=== PATIENT | female | born 1965 | race Caucasian/White ===

== ENCOUNTER 2018-04-15 15:24 | Emergency (ER) | payer OTHER, MEDICAID, SELFPAY ==
[2018-04-15 15:31] VITALS: BP 193/108; PULSE 98; RESP 20; TEMP 36; O2SAT 100; BMI 33.2
--- NOTE | 2018-04-15 15:42 | ED.ABDPAIN ---
HPI - Abdominal Pain <Tomasa Xavier PA-C - Last Filed: 04/15/18 20:46> General Chief Complaint: Abdominal Pain Stated Complaint: states serious abdominal pain Time Seen by Provider: 04/15/18 15:41 Source: patient Mode of arrival: ambulatory Limitations: no limitations History of Present Illness HPI narrative: This 53-year-old female comes in due to acute onset of abdominal pain and vomiting this morning. She states that pain is in the upper midline mostly, nonradiating. There do not seem to be any alleviating or exacerbating features such as position. She states that she vomited liquid to many times to count today and has been dry heaving since. She states that she had a normal bowel movement this morning, denies any urinary symptoms. She has not vomited blood. She states that she has felt warm today but no temperature taken. She states she had kidney stones once but this pain is not similar. She denies any new or changed medications. She did eat out at a fast food restaurant last night but did not notice anything strange with the food and other family members accompanying her there did not get ill. She denies any chest pain, dyspnea, or other new complaints on systems review. Related Data Home Medications Medication Instructions Recorded Confirmed [EXCEDRIN MIGRAINE] PRN #0 12/13/09 Allergies Allergy/AdvReac Type Severity Reaction Status Date / Time Penicillins Allergy Verified 04/15/18 15:34 Ranitidine Allergy Mild HIVES Uncoded 09/20/17 11:54 Review of Systems <Tomasa Xavier PA-C - Last Filed: 04/15/18 20:46> Review of Systems All systems reviewed & are unremarkable except as noted in HPI and below Exam <Tomasa Xavier PA-C - Last Filed: 04/15/18 20:46> Narrative Exam Narrative: GENERAL APPEARANCE: Patient lying on her side, appears uncomfortable, but in NAD HEENT: PERRL, EOMI, no scleral icterus NECK: Supple LUNGS: Clear to auscultation bilaterally. HEART: Rate and rhythm regular, normal S1 and S2, no S3 or S4. ABDOMEN: Soft, obese, nondistended, bowel sounds present x 4 quadrants, no masses palpable, no hepatosplenomegaly. Generalized tenderness over the epigastrium and throughout the upper quadrant, no lower quadrant tenderness, negative Hurley's sign, no CVAT EXTREMITIES: No edema, no calf tenderness DERMATOLOGIC: No jaundice or exanthem NEUROLOGIC: Alert and oriented with normal speech and coordination Initial Vital Signs Initial Vital Signs: Vital Signs Temperature 96.8 F L 04/15/18 15:31 Pulse Rate 98 H 04/15/18 15:31 Respiratory Rate 20 04/15/18 15:31 Blood Pressure 193/108 H 04/15/18 15:31 Pulse Oximetry 100 04/15/18 15:31 <Jeana Kumar DO - Last Filed: 04/20/18 18:28> Initial Vital Signs Initial Vital Signs: Vital Signs Temperature 96.8 F L 04/15/18 15:31 Pulse Rate 98 H 04/15/18 15:31 Respiratory Rate 20 04/15/18 15:31 Blood Pressure 193/108 H 04/15/18 15:31 Pulse Oximetry 100 04/15/18 15:31 Course <Tomasa Xavier PA-C - Last Filed: 04/15/18 20:46> Additional Information: I reviewed findings with patient. After fluids and medications, she is resting comfortably with pain and nausea largely resolved and able to tolerate fluids orally. She states in retrospect the fast food sandwich she ate last night may have been somewhat undercooked. She is feeling much better and would like to return home. She agreed to return if any acutely worsening symptoms again, otherwise advised follow-up with PCP tomorrow on abdominal pain, and also at some point may need to do liver imaging. Orders Ordered: Discontinued Medications Sodium Chloride (Normal Saline 0.9%) 1,000 mls @ 1,000 mls/hr IV BOLUS ONE Stop: 04/15/18 16:48 Last Infusion: 04/15/18 17:00 Dose: 0 mls/hr Admin: 04/15/18 15:51 Dose: 1,000 mls/hr Ketorolac Tromethamine (Toradol) 15 mg IV NOW ONE Stop: 04/15/18 15:51 Last Admin: 04/15/18 16:05 Dose: 15 mg Morphine Sulfate (Morphine) 4 mg IV NOW ONE Stop: 04/15/18 15:51 Last Admin: 04/15/18 16:05 Dose: 4 mg Ondansetron HCl (Zofran) 4 mg IV NOW ONE Stop: 04/15/18 15:51 Last Admin: 04/15/18 15:51 Dose: 4 mg Ondansetron HCl (Zofran Odt Prepack) 1 bottle MISC SEEINSTR ONE Stop: 04/15/18 18:12 Last Admin: 04/15/18 18:19 Dose: 1 bottle Vital Signs - 8 hr 04/15/18 15:31 04/15/18 16:41 04/15/18 18:30 Temperature 96.8 F L 98.0 F Pulse Rate 98 H 71 87 Respiratory Rate 20 17 16 Blood Pressure 193/108 H 104/51 L Blood Pressure [Left Arm] 128/69 Pulse Oximetry 100 97 98 <Jeana Kumar DO - Last Filed: 04/20/18 18:28> Orders Ordered: Discontinued Medications Sodium Chloride (Normal Saline 0.9%) 1,000 mls @ 1,000 mls/hr IV BOLUS ONE Stop: 04/15/18 16:48 Last Infusion: 04/15/18 17:00 Dose: 0 mls/hr Admin: 04/15/18 15:51 Dose: 1,000 mls/hr Ketorolac Tromethamine (Toradol) 15 mg IV NOW ONE Stop: 04/15/18 15:51 Last Admin: 04/15/18 16:05 Dose: 15 mg Morphine Sulfate (Morphine) 4 mg IV NOW ONE Stop: 04/15/18 15:51 Last Admin: 04/15/18 16:05 Dose: 4 mg Ondansetron HCl (Zofran) 4 mg IV NOW ONE Stop: 04/15/18 15:51 Last Admin: 04/15/18 15:51 Dose: 4 mg Ondansetron HCl (Zofran Odt Prepack) 1 bottle MISC SEEINSTR ONE Stop: 04/15/18 18:12 Last Admin: 04/15/18 18:19 Dose: 1 bottle Vital Signs - 8 hr 04/15/18 15:31 04/15/18 16:41 04/15/18 18:30 Temperature 96.8 F L 98.0 F Pulse Rate 98 H 71 87 Respiratory Rate 20 17 16 Blood Pressure 193/108 H 104/51 L Blood Pressure [Left Arm] 128/69 Pulse Oximetry 100 97 98 MDM - Abdominal Pain <Tomasa Xavier PA-C - Last Filed: 04/15/18 20:46> Lab Data Attestation: I reviewed the patient's lab results. Result diagrams: 04/15/18 15:40 04/15/18 15:40 Lab Results 04/15/18 04/15/18 04/15/18 Range/Units 15:40 15:40 16:00 WBC 15.2 H (4.5-11.0) X10^3/uL RBC 5.26 H (4.0-5.2) X10^6/uL Hgb 16.6 H (12.0-16.0) g/dL Hct 47.4 H (36-46) % MCV 90.0 (80-100) fL MCH 31.6 (26-34) PG MCHC 35.1 (30-36) % RDW 12.9 (11.6-14.8) % Plt Count 355 (150-400) X10^3/uL Neut % (Auto) 90.2 H (50-75) % Lymph % (Auto) 7.1 L (25-40) % [place] % (Auto) 2.0 L (3-14) % Eos % (Auto) 0.1 L (2-4) % Baso % (Auto) 0.6 (0-2) % Neut # (Auto) 27806 H (8648-1811) /uL Sodium 139 (137-145) mmol/L Potassium 4.1 (3.4-5.1) mmol/L Chloride 100 (98-107) mmol/L Carbon Dioxide 26 (22-32) mmol/L BUN 14 (7-17) mg/dL Creatinine 0.60 (0.52-1.04) mg/dL Estimated GFR > 60.0 (>60) mL/min BUN/Creatinine Ratio 23.3 H (6-22) Glucose 152 H (70-100) mg/dL Lactate 1.8 (0.7-2.1) mmol/L Calcium 9.6 (8.4-10.2) mg/dL Total Bilirubin 0.6 (0.2-1.3) mg/dL AST 30 (14-36) IU/L ALT 43 (9-52) IU/L Alkaline Phosphatase 96 (38-126) U/L Total Protein 7.7 (6.3-8.2) g/dL Albumin 4.5 (3.5-5.0) g/dL Globulin 3.2 (1.7-4.1) g/dL Albumin/Globulin Ratio 1.4 (1.0-2.8) Lipase 56 (23-300) U/L Imaging Data CT scan - abdomen: Radiologist's impression: [address] [address] [address] Scan Report Signed Patient: Carol ReyesnMR#: [id number] : 1965Acct:[id number] Age/Sex: 53 / FDate of Service: 04/15/18 Loc: ED Accession Number: [id number] Procedure: CT abdomen pelvis w con Ordering Provider: Tomasa Xavier P.A-C PROCEDURE: CT ABDOMEN PELVIS W CON INDICATIONS: upper abd pain, vomiting TECHNIQUE: After the administration of intravenous contrast, 5 mm thick sections acquired from the diaphragm to the symphysis. 5 mm coronal and sagittal reformats were acquired. For radiation dose reduction, the following was used: automated exposure control, adjustment of mA and/or kV according to patient size. COMPARISON: None. FINDINGS: Image quality: Excellent. ABDOMEN: Lung bases: Lung bases are clear. Heart size is normal. Solid organs: Liver is normal in size and enhancement. Hepatic steatosis is seen. Gallbladder is within normal limits.. Biliary system is non dilated. Pancreas enhances normally. Spleen is normal in size and enhancement. No adrenal nodules. Kidneys demonstrate normal size and enhancement, without hydronephrosis. Peritoneum and bowel: Bowel loops demonstrate normal wall thickness and caliber. Small amount of ascites fluid is seen adjacent to right lobe of liver. No gross peritoneal free air. Appendix is surgically absent. Mild sigmoid diverticulosis is seen, no CT evidence of acute diverticulitis. Small hiatal hernia is seen. Nodes and vessels: No retroperitoneal or mesenteric adenopathy by size criteria. Aorta and inferior vena cava are normal in size. Miscellaneous: No ventral hernias. PELVIS: Genitourinary: Bladder wall thickness is normal. Miscellaneous: No inguinal hernias or adenopathy. Bones: No suspicious bony lesions. No vertebral body compression fractures. IMPRESSION: 1. Hepatic steatosis. Small amount of ascites adjacent to right lobe of liver. Normal appearing gallbladder. No discrete hepatic lesion. No biliary ductal dilatation. 2. Prior appendectomy. Sigmoid diverticulosis with no evidence of acute diverticulitis. No free air. No bowel obstruction. Small hiatal hernia. Dictated by: Luciano Barahona M.D. on 04/15/2018 at 16:40 Approved by: Luciano Barahona M.D. on 04/15/2018 at 16:42 <Jeana Kumar DO - Last Filed: 04/20/18 18:28> Lab Data Lab Results 04/15/18 04/15/18 04/15/18 Range/Units 15:40 15:40 16:00 WBC 15.2 H (4.5-11.0) X10^3/uL RBC 5.26 H (4.0-5.2) X10^6/uL Hgb 16.6 H (12.0-16.0) g/dL Hct 47.4 H (36-46) % MCV 90.0 (80-100) fL MCH 31.6 (26-34) PG MCHC 35.1 (30-36) % RDW 12.9 (11.6-14.8) % Plt Count 355 (150-400) X10^3/uL Neut % (Auto) 90.2 H (50-75) % Lymph % (Auto) 7.1 L (25-40) % [place] % (Auto) 2.0 L (3-14) % Eos % (Auto) 0.1 L (2-4) % Baso % (Auto) 0.6 (0-2) % Neut # (Auto) 75188 H (9983-8786) /uL Sodium 139 (137-145) mmol/L Potassium 4.1 (3.4-5.1) mmol/L Chloride 100 (98-107) mmol/L Carbon Dioxide 26 (22-32) mmol/L BUN 14 (7-17) mg/dL Creatinine 0.60 (0.52-1.04) mg/dL Estimated GFR > 60.0 (>60) mL/min BUN/Creatinine Ratio 23.3 H (6-22) Glucose 152 H (70-100) mg/dL Lactate 1.8 (0.7-2.1) mmol/L Calcium 9.6 (8.4-10.2) mg/dL Total Bilirubin 0.6 (0.2-1.3) mg/dL AST 30 (14-36) IU/L ALT 43 (9-52) IU/L Alkaline Phosphatase 96 (38-126) U/L Total Protein 7.7 (6.3-8.2) g/dL Albumin 4.5 (3.5-5.0) g/dL Globulin 3.2 (1.7-4.1) g/dL Albumin/Globulin Ratio 1.4 (1.0-2.8) Lipase 56 (23-300) U/L Discharge Plan Departure Patient Disposition: Home Clinical Impression: Vomiting, Abdominal pain Discharge Date/Time: 04/15/18 18:32 Interventions: ED Discharge Assessment Last Done: 04/15/18 18:30 Instructions: DI for Abdominal Pain-Adult, DI for Vomiting -- Adult Activity Restrictions/Additional Instructions: Please return as we talked about if you have any acutely worsening symptoms again. Otherwise, please continue clear fluids tonight. You can take the antinausea medicine if needed. Call you PCP 1st thing in the morning to arrange follow-up for tomorrow, as we like to follow abdominal pain closely with repeat exams. There were not any clear acute problems found tonight on your CT scan, but you do have some fat and a little bit of fluid around the liver, which is most likely a chronic process, so your PCP may want to have you follow up on this at some point as well. Prescriptions: No Action [EXCEDRIN MIGRAINE] PRN Qty: 0 RF: 0 Referrals: Carlos Yara, Antonio Colon [Other] <Jeana Kumar DO - Last Filed: 04/20/18 18:28> Cosign ED Attending Tiffature Attestation: I was immediately available in the department for consultation. Documentation has been reviewed. I agree with assessment and plan.
[2018-04-15] MEDS: ONDANSETRON 4 MG/2 ML INJ IV (15:51)
[2018-04-15] MEDS: SODIUM CHLORIDE 0.9% 1,000 ML 1000 ML IV (15:51)
--- NOTE | 2018-04-15 15:51 | DI.CT.S_ITS ---
PROCEDURE: CT ABDOMEN PELVIS W CON INDICATIONS: upper abd pain, vomiting TECHNIQUE: After the administration of intravenous contrast, 5 mm thick sections acquired from the diaphragm to the symphysis. 5 mm coronal and sagittal reformats were acquired. For radiation dose reduction, the following was used: automated exposure control, adjustment of mA and/or kV according to patient size. COMPARISON: None. FINDINGS: Image quality: Excellent. ABDOMEN: Lung bases: Lung bases are clear. Heart size is normal. Solid organs: Liver is normal in size and enhancement. Hepatic steatosis is seen. Gallbladder is within normal limits.. Biliary system is non dilated. Pancreas enhances normally. Spleen is normal in size and enhancement. No adrenal nodules. Kidneys demonstrate normal size and enhancement, without hydronephrosis. Peritoneum and bowel: Bowel loops demonstrate normal wall thickness and caliber. Small amount of ascites fluid is seen adjacent to right lobe of liver. No gross peritoneal free air. Appendix is surgically absent. Mild sigmoid diverticulosis is seen, no CT evidence of acute diverticulitis. Small hiatal hernia is seen. Nodes and vessels: No retroperitoneal or mesenteric adenopathy by size criteria. Aorta and inferior vena cava are normal in size. Miscellaneous: No ventral hernias. PELVIS: Genitourinary: Bladder wall thickness is normal. Miscellaneous: No inguinal hernias or adenopathy. Bones: No suspicious bony lesions. No vertebral body compression fractures. IMPRESSION: 1. Hepatic steatosis. Small amount of ascites adjacent to right lobe of liver. Normal appearing gallbladder. No discrete hepatic lesion. No biliary ductal dilatation. 2. Prior appendectomy. Sigmoid diverticulosis with no evidence of acute diverticulitis. No free air. No bowel obstruction. Small hiatal hernia. Dictated by: Luciano Barahona M.D. on 04/15/2018 at 16:40 Approved by: Luciano Barahona M.D. on 04/15/2018 at 16:42
[2018-04-15 16:00] LABS: Add Manual Diff / Slide Review NO; Basophils Percent Auto 0.6 % (0-2); Eosinophils Percent Auto 0.1 % (2-4); Hematocrit 47.4 % (36-46); Hemoglobin 16.6 g/dL (12.0-16.0); Lymphocytes Percent Auto 7.1 % (25-40); Mean Corpuscular HGB Conc 35.1 % (30-36); Mean Corpuscular Hemoglobin 31.6 PG (26-34); Neutrophils Absolute Auto 13700 /uL (3000-5900); Neutrophils Percent Auto 90.2 % (50-75); Platelet Count 355 X10^3/uL (150-400); Red Blood Cell Count 5.26 X10^6/uL (4.0-5.2); Red Cell Distribution Width 12.9 % (11.6-14.8); White Blood Cell Count 15.2 X10^3/uL (4.5-11.0)
[2018-04-15 16:03] LABS: Alanine Aminotransferase 43 IU/L (9-52); Albumin 4.5 g/dL (3.5-5.0); Albumin Globulin Ratio 1.4 (1.0-2.8); Alkaline Phosphatase 96 U/L (38-126); Aspartate Aminotransferase 30 IU/L (14-36); BUN Creatinine Ratio 23.3 (6-22); Bilirubin Total 0.6 mg/dL (0.2-1.3); Blood Urea Nitrogen 14 mg/dL (7-17); Calcium 9.6 mg/dL (8.4-10.2); Carbon Dioxide 26 mmol/L (22-32); Chloride 100 mmol/L (98-107); Estimated Glomerular Filt Rate > 60.0 mL/min (>60); Globulin 3.2 g/dL (1.7-4.1); Glucose 152 mg/dL (70-100); HEMOLYSIS < 15 (0-50); Lipase 56 U/L (23-300); Potassium 4.1 mmol/L (3.4-5.1); Sodium 139 mmol/L (137-145); Total Protein 7.7 g/dL (6.3-8.2)
[2018-04-15] MEDS: KETOROLAC 15 MG/ML VIAL IV (16:05)
[2018-04-15] MEDS: MORPHINE 4 MG/ML INJ IV (16:05)
[2018-04-15 16:18] LABS: Lactate (Lactic Acid) 1.8 mmol/L (0.7-2.1)
[2018-04-15 16:41] VITALS: BP 128/69; PULSE 71; RESP 17; O2SAT 97
[2018-04-15] MEDS: ONDANSETRON 4 MG ODT PREPACK 1 BOTTLE MISC (18:19)
[2018-04-15 18:30] VITALS: BP 104/51; PULSE 87; RESP 16; TEMP 36.7; O2SAT 98
== END 2018-04-15 18:32 | disposition home or self-care (01) ==
PROVIDERS: Emergency Provider Internal Medicine
DX: R10.9 Unspecified abdominal pain (principal); R11.10 Vomiting, unspecified
CPT/HCPCS: 36591; 74177; 80053; 83605; 83690; 85025; 96361; 96374; 96375; 99283; 99285; J1885; J2270; J2405; Q9967

== ENCOUNTER 2018-04-21 12:42 | Inpatient (IN) | payer OTHER, MEDICAID, SELFPAY ==
[2018-04-21] VITALS (7 sets, daily range): BP systolic 140–193; BP diastolic 83–119; PULSE 80–102; RESP 16–24; TEMP 36.9–37.2; O2SAT 91–100; BMI 45.7
[2018-04-21] MEDS: ONDANSETRON 4 MG/2 ML INJ IV ×3 (13:09→20:54)
--- NOTE | 2018-04-21 13:34 | DI.US.S_ITS ---
PROCEDURE: US ABDOMEN COMPLETE INDICATIONS: PAIN TECHNIQUE: Real-time scanning was performed of the abdominal and retroperitoneal organs, with image documentation. COMPARISON: [facility], CR, XR ACUTE ABDOMEN SERIES, 04/21/2018, 15:18. [facility], CT, CT ABDOMEN PELVIS W CON, 04/15/2018, 17:13. FINDINGS: Liver: Liver is normal in size with steatosis. Gallbladder: Gallbladder is unremarkable. Biliary ducts: Intrahepatic bile ducts are non-dilated. Extrahepatic bile duct caliber measures 4.8 mm. Normal is 6-7 mm or less in diameter, or 10 mm or less post-cholecystectomy. Pancreas: Not visualized. Spleen: Spleen is normal in size and homogeneous in echotexture. Kidneys: Kidneys are normal in size and echotexture. Right kidney measures 11.4 cm long; left kidney measures 12.3 cm long. No hydronephrosis or nephrolithiasis. No solid masses. Aorta: Not visualized. [place]: Not visualized. IVC: Not visualized. Miscellaneous: No free abdominal fluid. IMPRESSION: 1. Mild hepatic steatosis., Otherwise unremarkable exam. Dictated by: Kristin Benton M.D. on 04/21/2018 at 16:20 Approved by: Kristin Benton M.D. on 04/21/2018 at 16:21
[2018-04-21] MEDS: SODIUM CHLORIDE 0.9% 1,000 ML 1000 ML IV (13:36)
--- NOTE | 2018-04-21 13:36 | ED.ABDPAIN ---
HPI - Abdominal Pain <SHAMA Sandhu - Last Filed: 04/21/18 22:17> General Chief Complaint: Abdominal Pain Stated Complaint: NAUSEA/VOMITING FOR OVER A WEEK Time Seen by Provider: 04/21/18 13:32 Source: patient Mode of arrival: ambulatory Limitations: no limitations History of Present Illness HPI narrative: 53-year-old female with history of hypertension is no everyday smoker here for complaint of having ongoing abdominal pain and nausea vomiting. She was seen here last week and had a CT and workup CT was obtained and was negative. She reports that her symptoms have not resolved. She states she is still having vomiting even though she has been using the Zofran. Pain is to the epigastric area. She denies any fevers or chills. No urinary symptoms. Decreased p.o. intake due to the nausea and vomiting. She denies any diarrhea. Related Data Home Medications Medication Instructions Recorded Confirmed lisinopril 10 mg PO DAILY 04/21/18 04/21/18 Allergies Allergy/AdvReac Type Severity Reaction Status Date / Time Penicillins Allergy Intermediate Hives Verified 04/21/18 12:58 ranitidine [From Zantac] Allergy Intermediate Hives Verified 04/21/18 12:58 Review of Systems <SHAMA Sandhu - Last Filed: 04/21/18 22:17> Constitutional Denies chills, Denies fever(s), Denies lethargy and Denies weakness Eyes Denies change in vision, Denies eye discharge, Denies irritation and Denies loss of vision ENT Ears, Nose, Mouth, and Throat: Denies change in voice, Denies neck pain and Denies sore throat Cardiovascular Denies chest pain, Denies irregular heart rhythm, Denies lightheadedness, Denies palpitations, Denies dyspnea, Denies dyspnea on exertion and Denies orthopnea Respiratory Denies cough, Denies dyspnea, Denies dyspnea on exertion and Denies wheezing Gastrointestinal Gastrointestinal: Reports abdominal pain and Reports vomiting Musculoskeletal Denies neck pain Integumentary/Breasts Denies pruritus, Denies erythema, Denies rash and Denies wounds Neurologic Denies confusion, Denies loss of vision and Denies weakness Psychiatric Denies anxiety, Denies confusion, Denies depression, Denies homicidal ideation and Denies suicidal ideation Endocrine Denies palpitations Hematologic/Lymphatic Denies easy bruising Allergic/Immunologic Denies wheezing Exam <SHAMA Sandhu - Last Filed: 04/21/18 22:17> Initial Vital Signs Initial Vital Signs: Vital Signs Temperature 98.5 F 04/21/18 12:54 Pulse Rate 96 H 04/21/18 12:54 Respiratory Rate 16 04/21/18 12:54 Blood Pressure 181/119 H 04/21/18 12:54 Pulse Oximetry 98 04/21/18 12:54 Const General: cooperative and well developed Nutritional Appearance: well nourished Orientation: alert, awake, oriented x3 and not confused HENID Mouth: oral mucosae normal and moist mucous membranes Eyes Conjunctivae: conjunctivae normal Sclera: sclerae normal Pupils: PERRL EOM: EOM intact bilaterally Resp Effort & Inspection: normal respiratory effort, able to speak in complete sentences, no respiratory distress and no use of accessory muscles Auscultation: clear to auscultation bilaterally, no rales, no rhonchi and no wheezes Cardio Rate: regular rate Rhythm: regular rhythm Heart Sounds: no click, no gallops, no murmurs and no rubs GI Inspection: non-distended Palpation: soft, no hepatosplenomegaly, No guarding, No pulsatile mass and tender (Tenderness to the epigastric area) Auscultation: normal bowel sounds <Jose Guadalupe Gregorio DO - Last Filed: 04/23/18 10:15> Initial Vital Signs Initial Vital Signs: Vital Signs Temperature 98.5 F 04/21/18 12:54 Pulse Rate 96 H 04/21/18 12:54 Respiratory Rate 16 04/21/18 12:54 Blood Pressure 181/119 H 04/21/18 12:54 Pulse Oximetry 98 04/21/18 12:54 Course <SHAMA Sandhu - Last Filed: 04/21/18 22:17> Orders Ordered: ED Orders 04/23/18 05:45 Basic Metabolic Panel Routine Complete Blood Count AUTO DIFF Routine Enoxaparin Sodium (Lovenox) 40 mg SUBCUT DAILY [facility] Last Admin: 04/23/18 08:31 Dose: 40 mg Hydromorphone HCl (Dilaudid) 2 mg IV Q4HR PRN PRN Reason: Pain, Moderate (4-6) Last Admin: 04/22/18 14:30 Dose: 2 mg Admin: 04/22/18 07:41 Dose: 2 mg Admin: 04/21/18 20:54 Dose: 2 mg Dextrose/Sodium Chloride (Dextrose 5%-0.9% Ns) 1,000 mls @ 150 mls/hr IV CONT [facility] Last Admin: 04/23/18 09:48 Dose: 150 mls/hr Infusion: 04/23/18 09:48 Dose: 150 mls/hr Admin: 04/23/18 03:35 Dose: 150 mls/hr Infusion: 04/22/18 21:01 Dose: 150 mls/hr Admin: 04/22/18 14:20 Dose: 150 mls/hr Infusion: 04/22/18 14:19 Dose: 150 mls/hr Admin: 04/22/18 07:38 Dose: 150 mls/hr Infusion: 04/22/18 07:38 Dose: 150 mls/hr Admin: 04/22/18 01:01 Dose: 150 mls/hr Infusion: 04/22/18 01:01 Dose: 150 mls/hr Admin: 04/21/18 18:47 Dose: 150 mls/hr Ketorolac Tromethamine (Toradol) 30 mg IV Q6HR PRN PRN Reason: Headache Stop: 04/27/18 15:42 Last Admin: 04/22/18 20:39 Dose: 30 mg Ondansetron HCl (Zofran) 4 mg IV Q4HR PRN PRN Reason: Nausea And Vomiting Last Admin: 04/21/18 20:54 Dose: 4 mg Ondansetron HCl (Zofran Odt) 4 mg PO Q8HR PRN PRN Reason: Nausea And Vomiting Discontinued Medications Diphenhydramine HCl (Benadryl) 25 mg IV NOW ONE Stop: 04/21/18 15:32 Last Admin: 04/21/18 15:42 Dose: 25 mg Hydromorphone HCl (Dilaudid) 1 mg IV NOW ONE Stop: 04/21/18 15:32 Last Admin: 04/21/18 15:43 Dose: 1 mg Sodium Chloride (Normal Saline 0.9%) 1,000 mls @ 1,000 mls/hr IV BOLUS ONE Stop: 04/21/18 14:24 Last Infusion: 04/21/18 14:52 Dose: 0 mls/hr Admin: 04/21/18 13:36 Dose: 1,000 mls/hr Sodium Chloride (Normal Saline 0.9%) 1,000 mls @ 125 mls/hr IV CONT [facility] Last Admin: 04/21/18 18:10 Dose: 125 mls/hr Ondansetron HCl (Zofran) 4 mg IV NOW ONE Stop: 04/21/18 13:09 Last Admin: 04/21/18 13:09 Dose: 4 mg Ondansetron HCl (Zofran) 4 mg IV NOW ONE Stop: 04/21/18 15:32 Last Admin: 04/21/18 15:43 Dose: 4 mg Vital Signs - 8 hr 04/23/18 06:00 04/23/18 07:30 04/23/18 08:01 Temperature 98.2 F 98.0 F Pulse Rate 80 80 Respiratory Rate 16 16 Blood Pressure 148/74 H 144/74 H Pulse Oximetry 98 97 96 <Jose Guadalupe Gregorio, - Last Filed: 04/23/18 10:15> Orders Ordered: ED Orders 04/23/18 05:45 Basic Metabolic Panel Routine Complete Blood Count AUTO DIFF Routine Enoxaparin Sodium (Lovenox) 40 mg SUBCUT DAILY [facility] Last Admin: 04/23/18 08:31 Dose: 40 mg Hydromorphone HCl (Dilaudid) 2 mg IV Q4HR PRN PRN Reason: Pain, Moderate (4-6) Last Admin: 04/22/18 14:30 Dose: 2 mg Admin: 04/22/18 07:41 Dose: 2 mg Admin: 04/21/18 20:54 Dose: 2 mg Dextrose/Sodium Chloride (Dextrose 5%-0.9% Ns) 1,000 mls @ 150 mls/hr IV CONT [facility] Last Admin: 04/23/18 09:48 Dose: 150 mls/hr Infusion: 04/23/18 09:48 Dose: 150 mls/hr Admin: 04/23/18 03:35 Dose: 150 mls/hr Infusion: 04/22/18 21:01 Dose: 150 mls/hr Admin: 04/22/18 14:20 Dose: 150 mls/hr Infusion: 04/22/18 14:19 Dose: 150 mls/hr Admin: 04/22/18 07:38 Dose: 150 mls/hr Infusion: 04/22/18 07:38 Dose: 150 mls/hr Admin: 04/22/18 01:01 Dose: 150 mls/hr Infusion: 04/22/18 01:01 Dose: 150 mls/hr Admin: 04/21/18 18:47 Dose: 150 mls/hr Ketorolac Tromethamine (Toradol) 30 mg IV Q6HR PRN PRN Reason: Headache Stop: 04/27/18 15:42 Last Admin: 04/22/18 20:39 Dose: 30 mg Ondansetron HCl (Zofran) 4 mg IV Q4HR PRN PRN Reason: Nausea And Vomiting Last Admin: 04/21/18 20:54 Dose: 4 mg Ondansetron HCl (Zofran Odt) 4 mg PO Q8HR PRN PRN Reason: Nausea And Vomiting Discontinued Medications Diphenhydramine HCl (Benadryl) 25 mg IV NOW ONE Stop: 04/21/18 15:32 Last Admin: 04/21/18 15:42 Dose: 25 mg Hydromorphone HCl (Dilaudid) 1 mg IV NOW ONE Stop: 04/21/18 15:32 Last Admin: 04/21/18 15:43 Dose: 1 mg Sodium Chloride (Normal Saline 0.9%) 1,000 mls @ 1,000 mls/hr IV BOLUS ONE Stop: 04/21/18 14:24 Last Infusion: 04/21/18 14:52 Dose: 0 mls/hr Admin: 04/21/18 13:36 Dose: 1,000 mls/hr Sodium Chloride (Normal Saline 0.9%) 1,000 mls @ 125 mls/hr IV CONT [facility] Last Admin: 04/21/18 18:10 Dose: 125 mls/hr Ondansetron HCl (Zofran) 4 mg IV NOW ONE Stop: 04/21/18 13:09 Last Admin: 04/21/18 13:09 Dose: 4 mg Ondansetron HCl (Zofran) 4 mg IV NOW ONE Stop: 04/21/18 15:32 Last Admin: 04/21/18 15:43 Dose: 4 mg Vital Signs - 8 hr 04/23/18 06:00 04/23/18 07:30 04/23/18 08:01 Temperature 98.2 F 98.0 F Pulse Rate 80 80 Respiratory Rate 16 16 Blood Pressure 148/74 H 144/74 H Pulse Oximetry 98 97 96 MDM - Abdominal Pain <SHAMA Sandhu - Last Filed: 04/21/18 22:17> Lab Data Result diagrams: 04/23/18 05:45 04/23/18 05:45 Lab Results 04/21/18 04/21/18 04/21/18 Range/Units 14:05 14:05 14:05 WBC 11.1 H (4.5-11.0) X10^3/uL RBC 5.06 (4.0-5.2) X10^6/uL Hgb 15.9 (12.0-16.0) g/dL Hct 45.5 (36-46) % MCV 90.0 (80-100) fL MCH 31.4 (26-34) PG MCHC 34.9 (30-36) % RDW 12.9 (11.6-14.8) % Plt Count 297 (150-400) X10^3/uL Neut % (Auto) 76.4 H (50-75) % Lymph % (Auto) 15.3 L (25-40) % [place] % (Auto) 6.5 (3-14) % Eos % (Auto) 1.1 L (2-4) % Baso % (Auto) 0.7 (0-2) % Neut # (Auto) 8500 H (6624-2682) /uL PT 12.7 (10.1-12.7) SECONDS INR 1.2 (0.9-1.3) APTT 29 (26.4-36.2) SECONDS Sodium 142 (137-145) mmol/L Potassium 4.6 (3.4-5.1) mmol/L Chloride 103 (98-107) mmol/L Carbon Dioxide 29 (22-32) mmol/L BUN 12 (7-17) mg/dL Creatinine 0.60 (0.52-1.04) mg/dL Estimated GFR > 60.0 (>60) mL/min BUN/Creatinine Ratio 20.0 (6-22) Glucose 95 (70-100) mg/dL Calcium 9.1 (8.4-10.2) mg/dL Total Bilirubin 0.5 (0.2-1.3) mg/dL AST 32 (14-36) IU/L ALT 53 H (9-52) IU/L Alkaline Phosphatase 70 (38-126) U/L Total Protein 7.2 (6.3-8.2) g/dL Albumin 4.1 (3.5-5.0) g/dL Globulin 3.1 (1.7-4.1) g/dL Albumin/Globulin Ratio 1.3 (1.0-2.8) Lipase 78 (23-300) U/L 04/22/18 04/22/18 04/23/18 Range/Units 05:16 05:16 05:45 WBC 5.9 5.6 (4.5-11.0) X10^3/uL RBC 4.38 4.06 (4.0-5.2) X10^6/uL Hgb 13.9 13.0 (12.0-16.0) g/dL Hct 40.1 37.3 (36-46) % MCV 91.6 92.0 (80-100) fL MCH 31.7 32.0 (26-34) PG MCHC 34.6 34.7 (30-36) % RDW 12.8 13.0 (11.6-14.8) % Plt Count 242 222 (150-400) X10^3/uL Neut % (Auto) 57.9 52.6 (50-75) % Lymph % (Auto) 28.6 33.5 (25-40) % [place] % (Auto) 9.5 10.0 (3-14) % Eos % (Auto) 3.0 2.6 (2-4) % Baso % (Auto) 1.0 1.3 (0-2) % Neut # (Auto) 3400 2900 L (5107-7803) /uL PT (10.1-12.7) SECONDS INR (0.9-1.3) APTT (26.4-36.2) SECONDS Sodium 141 (137-145) mmol/L Potassium 3.6 (3.4-5.1) mmol/L Chloride 105 (98-107) mmol/L Carbon Dioxide 29 (22-32) mmol/L BUN 15 (7-17) mg/dL Creatinine 0.70 (0.52-1.04) mg/dL Estimated GFR > 60.0 (>60) mL/min BUN/Creatinine Ratio 21.4 (6-22) Glucose 120 H (70-100) mg/dL Calcium 8.2 L (8.4-10.2) mg/dL Total Bilirubin 0.4 (0.2-1.3) mg/dL AST 44 H (14-36) IU/L ALT 61 H (9-52) IU/L Alkaline Phosphatase 58 (38-126) U/L Total Protein 5.7 L (6.3-8.2) g/dL Albumin 3.2 L (3.5-5.0) g/dL Globulin 2.5 (1.7-4.1) g/dL Albumin/Globulin Ratio 1.3 (1.0-2.8) Lipase (23-300) U/L 04/23/18 Range/Units 05:45 WBC (4.5-11.0) X10^3/uL RBC (4.0-5.2) X10^6/uL Hgb (12.0-16.0) g/dL Hct (36-46) % MCV (80-100) fL MCH (26-34) PG MCHC (30-36) % RDW (11.6-14.8) % Plt Count (150-400) X10^3/uL Neut % (Auto) (50-75) % Lymph % (Auto) (25-40) % [place] % (Auto) (3-14) % Eos % (Auto) (2-4) % Baso % (Auto) (0-2) % Neut # (Auto) (7277-7491) /uL PT (10.1-12.7) SECONDS INR (0.9-1.3) APTT (26.4-36.2) SECONDS Sodium 141 (137-145) mmol/L Potassium 3.9 (3.4-5.1) mmol/L Chloride 106 (98-107) mmol/L Carbon Dioxide 28 (22-32) mmol/L BUN 11 (7-17) mg/dL Creatinine 0.60 (0.52-1.04) mg/dL Estimated GFR > 60.0 (>60) mL/min BUN/Creatinine Ratio 18.3 (6-22) Glucose 109 H (70-100) mg/dL Calcium 8.4 (8.4-10.2) mg/dL Total Bilirubin (0.2-1.3) mg/dL AST (14-36) IU/L ALT (9-52) IU/L Alkaline Phosphatase (38-126) U/L Total Protein (6.3-8.2) g/dL Albumin (3.5-5.0) g/dL Globulin (1.7-4.1) g/dL Albumin/Globulin Ratio (1.0-2.8) Lipase (23-300) U/L Point of care testing: Urine Dip Bedside Urine Glucose Negative Bedside Urine Bilirubin - Negative Bedside Urine Ketone - Negative Urine Specific [place] 1.015 Bedside Urine Occult Blood - Negative Bedside Urine pH 6.0 Bedside Urine Protein - Negative Bedside Urine Urobilinogen - Negative Bedside Urine Nitrite - Negative Bedside Urine Leukocytes - Negative Esterase Imaging Data US - abdomen: Radiologist's impression: [address] [address] Ultrasound Report Signed Patient: Carol Reyes LMR#: [id number] : 1965Acct:[id number] Age/Sex: 53 / FDate of Service: 04/21/18 Loc: ED Accession Number: [id number] Procedure: US abdomen complete Ordering Provider: Juan Manuel Kurtz PROCEDURE: US ABDOMEN COMPLETE INDICATIONS: PAIN TECHNIQUE: Real-time scanning was performed of the abdominal and retroperitoneal organs, with image documentation. COMPARISON: [facility], CR, XR ACUTE ABDOMEN SERIES, 04/21/2018, 15:18. [facility], CT, CT ABDOMEN PELVIS W CON, 04/15/2018, 17:13. FINDINGS: Liver: Liver is normal in size with steatosis. Gallbladder: Gallbladder is unremarkable. Biliary ducts: Intrahepatic bile ducts are non-dilated. Extrahepatic bile duct caliber measures 4.8 mm. Normal is 6-7 mm or less in diameter, or 10 mm or less post-cholecystectomy. Pancreas: Not visualized. Spleen: Spleen is normal in size and homogeneous in echotexture. Kidneys: Kidneys are normal in size and echotexture. Right kidney measures 11.4 cm long; left kidney measures 12.3 cm long. No hydronephrosis or nephrolithiasis. No solid masses. Aorta: Not visualized. Iliacs: Not visualized. IVC: Not visualized. Miscellaneous: No free abdominal fluid. IMPRESSION: 1. Mild hepatic steatosis., Otherwise unremarkable exam. Dictated by: Kristin Benton M.D. on 04/21/2018 at 16:20 Approved by: Kristin Benton M.D. on 04/21/2018 at 16:21 Abdominal x-ray: Radiologist's impression: [address] [place] [id number] XRay Report Signed Patient: Carol Reyes LMR#: [id number] : 1965Acct:[id number] Age/Sex: 53 / FDate of Service: 04/21/18 Loc: ED Accession Number: [id number] Procedure: XR acute abdomen series Ordering Provider: Juan Manuel Kurtz PROCEDURE: XR ACUTE ABDOMEN SERIES INDICATIONS: Continued abdominal pain nausea vomiting TECHNIQUE: One view chest and two views of the abdomen were acquired. COMPARISON: [facility], ABDOMEN COMPLETE, 04/21/2018, 14:53. FINDINGS: Surgical changes and devices: None. Chest: Lungs are clear. Heart size is normal. No pleural effusions. No pneumoperitoneum. Abdomen: Bowel gas pattern demonstrates several mildly dilated small bowel fluid levels. No suspicious calcifications. Visualized solid organ contours appear normal. Bones: No suspicious bony lesions. IMPRESSION: Several small bowel fluid levels consistent with partial small bowel structure. Dictated by: Kristin Benton M.D. on 04/21/2018 at 16:19 Approved by: Kristin Benton M.D. on 04/21/2018 at 16:19 ECG Data Interpretation: EKG shows normal sinus rhythm with no ST elevation or depression. No ectopy. Ventricular rate of 87. Pr interval 129. QRS duration of 90. QT 368 MDM Narrative Medical decision making narrative: CBC and Chem panel were obtained and were unremarkable. White count from the 15 of April is decreased 15.2 to 11.1. Lipase was negative. Liver enzymes were unremarkable. Ultrasound of the abdomen was obtained negative for any acute findings. Acute abdominal series was obtained and shows findings consistent with partial small-bowel obstruction. NG tube was placed. Discussed case with Dr. Vaughn hospitalist patient is admitted to observation for further care <Jose Guadalupe Gregorio DO - Last Filed: 04/23/18 10:15> Lab Data Lab Results 04/21/18 04/21/18 04/21/18 Range/Units 14:05 14:05 14:05 WBC 11.1 H (4.5-11.0) X10^3/uL RBC 5.06 (4.0-5.2) X10^6/uL Hgb 15.9 (12.0-16.0) g/dL Hct 45.5 (36-46) % MCV 90.0 (80-100) fL MCH 31.4 (26-34) PG MCHC 34.9 (30-36) % RDW 12.9 (11.6-14.8) % Plt Count 297 (150-400) X10^3/uL Neut % (Auto) 76.4 H (50-75) % Lymph % (Auto) 15.3 L (25-40) % [place] % (Auto) 6.5 (3-14) % Eos % (Auto) 1.1 L (2-4) % Baso % (Auto) 0.7 (0-2) % Neut # (Auto) 8500 H (5814-6096) /uL PT 12.7 (10.1-12.7) SECONDS INR 1.2 (0.9-1.3) APTT 29 (26.4-36.2) SECONDS Sodium 142 (137-145) mmol/L Potassium 4.6 (3.4-5.1) mmol/L Chloride 103 (98-107) mmol/L Carbon Dioxide 29 (22-32) mmol/L BUN 12 (7-17) mg/dL Creatinine 0.60 (0.52-1.04) mg/dL Estimated GFR > 60.0 (>60) mL/min BUN/Creatinine Ratio 20.0 (6-22) Glucose 95 (70-100) mg/dL Calcium 9.1 (8.4-10.2) mg/dL Total Bilirubin 0.5 (0.2-1.3) mg/dL AST 32 (14-36) IU/L ALT 53 H (9-52) IU/L Alkaline Phosphatase 70 (38-126) U/L Total Protein 7.2 (6.3-8.2) g/dL Albumin 4.1 (3.5-5.0) g/dL Globulin 3.1 (1.7-4.1) g/dL Albumin/Globulin Ratio 1.3 (1.0-2.8) Lipase 78 (23-300) U/L 04/22/18 04/22/18 04/23/18 Range/Units 05:16 05:16 05:45 WBC 5.9 5.6 (4.5-11.0) X10^3/uL RBC 4.38 4.06 (4.0-5.2) X10^6/uL Hgb 13.9 13.0 (12.0-16.0) g/dL Hct 40.1 37.3 (36-46) % MCV 91.6 92.0 (80-100) fL MCH 31.7 32.0 (26-34) PG MCHC 34.6 34.7 (30-36) % RDW 12.8 13.0 (11.6-14.8) % Plt Count 242 222 (150-400) X10^3/uL Neut % (Auto) 57.9 52.6 (50-75) % Lymph % (Auto) 28.6 33.5 (25-40) % [place] % (Auto) 9.5 10.0 (3-14) % Eos % (Auto) 3.0 2.6 (2-4) % Baso % (Auto) 1.0 1.3 (0-2) % Neut # (Auto) 3400 2900 L (0715-9264) /uL PT (10.1-12.7) SECONDS INR (0.9-1.3) APTT (26.4-36.2) SECONDS Sodium 141 (137-145) mmol/L Potassium 3.6 (3.4-5.1) mmol/L Chloride 105 (98-107) mmol/L Carbon Dioxide 29 (22-32) mmol/L BUN 15 (7-17) mg/dL Creatinine 0.70 (0.52-1.04) mg/dL Estimated GFR > 60.0 (>60) mL/min BUN/Creatinine Ratio 21.4 (6-22) Glucose 120 H (70-100) mg/dL Calcium 8.2 L (8.4-10.2) mg/dL Total Bilirubin 0.4 (0.2-1.3) mg/dL AST 44 H (14-36) IU/L ALT 61 H (9-52) IU/L Alkaline Phosphatase 58 (38-126) U/L Total Protein 5.7 L (6.3-8.2) g/dL Albumin 3.2 L (3.5-5.0) g/dL Globulin 2.5 (1.7-4.1) g/dL Albumin/Globulin Ratio 1.3 (1.0-2.8) Lipase (23-300) U/L 04/23/18 Range/Units 05:45 WBC (4.5-11.0) X10^3/uL RBC (4.0-5.2) X10^6/uL Hgb (12.0-16.0) g/dL Hct (36-46) % MCV (80-100) fL MCH (26-34) PG MCHC (30-36) % RDW (11.6-14.8) % Plt Count (150-400) X10^3/uL Neut % (Auto) (50-75) % Lymph % (Auto) (25-40) % [place] % (Auto) (3-14) % Eos % (Auto) (2-4) % Baso % (Auto) (0-2) % Neut # (Auto) (3070-3155) /uL PT (10.1-12.7) SECONDS INR (0.9-1.3) APTT (26.4-36.2) SECONDS Sodium 141 (137-145) mmol/L Potassium 3.9 (3.4-5.1) mmol/L Chloride 106 (98-107) mmol/L Carbon Dioxide 28 (22-32) mmol/L BUN 11 (7-17) mg/dL Creatinine 0.60 (0.52-1.04) mg/dL Estimated GFR > 60.0 (>60) mL/min BUN/Creatinine Ratio 18.3 (6-22) Glucose 109 H (70-100) mg/dL Calcium 8.4 (8.4-10.2) mg/dL Total Bilirubin (0.2-1.3) mg/dL AST (14-36) IU/L ALT (9-52) IU/L Alkaline Phosphatase (38-126) U/L Total Protein (6.3-8.2) g/dL Albumin (3.5-5.0) g/dL Globulin (1.7-4.1) g/dL Albumin/Globulin Ratio (1.0-2.8) Lipase (23-300) U/L Point of care testing: Urine Dip Bedside Urine Glucose Negative Bedside Urine Bilirubin - Negative Bedside Urine Ketone - Negative Urine Specific [place] 1.015 Bedside Urine Occult Blood - Negative Bedside Urine pH 6.0 Bedside Urine Protein - Negative Bedside Urine Urobilinogen - Negative Bedside Urine Nitrite - Negative Bedside Urine Leukocytes - Negative Esterase Discharge Plan Departure Patient Disposition: Admitted As Inpatient Clinical Impression: Small bowel obstruction Discharge Date/Time: 04/21/18 17:46 Interventions: ED Discharge Assessment Last Done: 04/21/18 17:37 Admit Date/Time: 04/21/18 17:36 Admit Provider: Tate Vaughn <Jose Guadalupe Gregorio DO - Last Filed: 04/23/18 10:15> Cosign ED Attending Cosignature Attestation: I was immediately available in the department for consultation. Documentation has been reviewed. I agree with assessment and plan.
[2018-04-21 14:11] LABS: Add Manual Diff / Slide Review NO; Basophils Percent Auto 0.7 % (0-2); Eosinophils Percent Auto 1.1 % (2-4); Hematocrit 45.5 % (36-46); Hemoglobin 15.9 g/dL (12.0-16.0); Lymphocytes Percent Auto 15.3 % (25-40); Mean Corpuscular HGB Conc 34.9 % (30-36); Mean Corpuscular Hemoglobin 31.4 PG (26-34); Monocytes Percent Auto 6.5 % (3-14); Neutrophils Absolute Auto 8500 /uL (3000-5900); Neutrophils Percent Auto 76.4 % (50-75); Platelet Count 297 X10^3/uL (150-400); Red Blood Cell Count 5.06 X10^6/uL (4.0-5.2); Red Cell Distribution Width 12.9 % (11.6-14.8); White Blood Cell Count 11.1 X10^3/uL (4.5-11.0)
[2018-04-21 14:18] LABS: INR 1.2 (0.9-1.3); Prothrombin Time 12.7 SECONDS (10.1-12.7)
[2018-04-21 14:21] LABS: Alanine Aminotransferase 53 IU/L (9-52); Albumin 4.1 g/dL (3.5-5.0); Albumin Globulin Ratio 1.3 (1.0-2.8); Alkaline Phosphatase 70 U/L (38-126); Aspartate Aminotransferase 32 IU/L (14-36); Bilirubin Total 0.5 mg/dL (0.2-1.3); Blood Urea Nitrogen 12 mg/dL (7-17); Calcium 9.1 mg/dL (8.4-10.2); Carbon Dioxide 29 mmol/L (22-32); Chloride 103 mmol/L (98-107); Estimated Glomerular Filt Rate > 60.0 mL/min (>60); Globulin 3.1 g/dL (1.7-4.1); Glucose 95 mg/dL (70-100); HEMOLYSIS 31 (0-50); Lipase 78 U/L (23-300); PTT Partial Thromboplastin Tim 29 SECONDS (26.4-36.2); Potassium 4.6 mmol/L (3.4-5.1); Sodium 142 mmol/L (137-145); Total Protein 7.2 g/dL (6.3-8.2)
--- NOTE | 2018-04-21 15:12 | DI.RAD.S_ITS ---
PROCEDURE: XR ACUTE ABDOMEN SERIES INDICATIONS: Continued abdominal pain nausea vomiting TECHNIQUE: One view chest and two views of the abdomen were acquired. COMPARISON: [facility], , ABDOMEN COMPLETE, 04/21/2018, 14:53. FINDINGS: Surgical changes and devices: None. Chest: Lungs are clear. Heart size is normal. No pleural effusions. No pneumoperitoneum. Abdomen: Bowel gas pattern demonstrates several mildly dilated small bowel fluid levels. No suspicious calcifications. Visualized solid organ contours appear normal. Bones: No suspicious bony lesions. IMPRESSION: Several small bowel fluid levels consistent with partial small bowel structure. Dictated by: Kristin Benton M.D. on 04/21/2018 at 16:19 Approved by: Kristin Benton M.D. on 04/21/2018 at 16:19
[2018-04-21] MEDS: diphenhydrAMINE 50 MG/ML VIAL 25 MG IV (15:42)
[2018-04-21] MEDS: HYDROMORPHONE 1 MG INJ IV (15:43)
--- NOTE | 2018-04-21 17:06 | ED_ITS ---
HPI - Abdominal Pain <SHAMA Sandhu - Last Filed: 04/21/18 22:17> General Chief Complaint: Abdominal Pain Stated Complaint: NAUSEA/VOMITING FOR OVER A WEEK Time Seen by Provider: 04/21/18 13:32 Source: patient Mode of arrival: ambulatory Limitations: no limitations History of Present Illness HPI narrative: 53-year-old female with history of hypertension is no everyday smoker here for complaint of having ongoing abdominal pain and nausea vomiting. She was seen here last week and had a CT and workup CT was obtained and was negative. She reports that her symptoms have not resolved. She states she is still having vomiting even though she has been using the Zofran. Pain is to the epigastric area. She denies any fevers or chills. No urinary symptoms. Decreased p.o. intake due to the nausea and vomiting. She denies any diarrhea. Related Data Home Medications Medication Instructions Recorded Confirmed lisinopril 10 mg PO DAILY 04/21/18 04/21/18 Allergies Allergy/AdvReac Type Severity Reaction Status Date / Time Penicillins Allergy Intermediate Hives Verified 04/21/18 12:58 ranitidine [From Zantac] Allergy Intermediate Hives Verified 04/21/18 12:58 Review of Systems <SHAMA Sandhu - Last Filed: 04/21/18 22:17> Constitutional Denies chills, Denies fever(s), Denies lethargy and Denies weakness Eyes Denies change in vision, Denies eye discharge, Denies irritation and Denies loss of vision ENT Ears, Nose, Mouth, and Throat: Denies change in voice, Denies neck pain and Denies sore throat Cardiovascular Denies chest pain, Denies irregular heart rhythm, Denies lightheadedness, Denies palpitations, Denies dyspnea, Denies dyspnea on exertion and Denies orthopnea Respiratory Denies cough, Denies dyspnea, Denies dyspnea on exertion and Denies wheezing Gastrointestinal Gastrointestinal: Reports abdominal pain and Reports vomiting Musculoskeletal Denies neck pain Integumentary/Breasts Denies pruritus, Denies erythema, Denies rash and Denies wounds Neurologic Denies confusion, Denies loss of vision and Denies weakness Psychiatric Denies anxiety, Denies confusion, Denies depression, Denies homicidal ideation and Denies suicidal ideation Endocrine Denies palpitations Hematologic/Lymphatic Denies easy bruising Allergic/Immunologic Denies wheezing Exam <SHAMA Sandhu - Last Filed: 04/21/18 22:17> Initial Vital Signs Initial Vital Signs: Vital Signs Temperature 98.5 F 04/21/18 12:54 Pulse Rate 96 H 04/21/18 12:54 Respiratory Rate 16 04/21/18 12:54 Blood Pressure 181/119 H 04/21/18 12:54 Pulse Oximetry 98 04/21/18 12:54 Const General: cooperative and well developed Nutritional Appearance: well nourished Orientation: alert, awake, oriented x3 and not confused HENNV Mouth: oral mucosae normal and moist mucous membranes Eyes Conjunctivae: conjunctivae normal Sclera: sclerae normal Pupils: PERRL EOM: EOM intact bilaterally Resp Effort & Inspection: normal respiratory effort, able to speak in complete sentences, no respiratory distress and no use of accessory muscles Auscultation: clear to auscultation bilaterally, no rales, no rhonchi and no wheezes Cardio Rate: regular rate Rhythm: regular rhythm Heart Sounds: no click, no gallops, no murmurs and no rubs GI Inspection: non-distended Palpation: soft, no hepatosplenomegaly, No guarding, No pulsatile mass and tender (Tenderness to the epigastric area) Auscultation: normal bowel sounds <Jose Guadalupe Gregorio DO - Last Filed: 04/23/18 10:15> Initial Vital Signs Initial Vital Signs: Vital Signs Temperature 98.5 F 04/21/18 12:54 Pulse Rate 96 H 04/21/18 12:54 Respiratory Rate 16 04/21/18 12:54 Blood Pressure 181/119 H 04/21/18 12:54 Pulse Oximetry 98 04/21/18 12:54 Course <SHAMA Sandhu - Last Filed: 04/21/18 22:17> Orders Ordered: ED Orders 04/23/18 05:45 Basic Metabolic Panel Routine Complete Blood Count AUTO DIFF Routine Enoxaparin Sodium (Lovenox) 40 mg SUBCUT DAILY [facility] Last Admin: 04/23/18 08:31 Dose: 40 mg Hydromorphone HCl (Dilaudid) 2 mg IV Q4HR PRN PRN Reason: Pain, Moderate (4-6) Last Admin: 04/22/18 14:30 Dose: 2 mg Admin: 04/22/18 07:41 Dose: 2 mg Admin: 04/21/18 20:54 Dose: 2 mg Dextrose/Sodium Chloride (Dextrose 5%-0.9% Ns) 1,000 mls @ 150 mls/hr IV CONT MUKUL Last Admin: 04/23/18 09:48 Dose: 150 mls/hr Infusion: 04/23/18 09:48 Dose: 150 mls/hr Admin: 04/23/18 03:35 Dose: 150 mls/hr Infusion: 04/22/18 21:01 Dose: 150 mls/hr Admin: 04/22/18 14:20 Dose: 150 mls/hr Infusion: 04/22/18 14:19 Dose: 150 mls/hr Admin: 04/22/18 07:38 Dose: 150 mls/hr Infusion: 04/22/18 07:38 Dose: 150 mls/hr Admin: 04/22/18 01:01 Dose: 150 mls/hr Infusion: 04/22/18 01:01 Dose: 150 mls/hr Admin: 04/21/18 18:47 Dose: 150 mls/hr Ketorolac Tromethamine (Toradol) 30 mg IV Q6HR PRN PRN Reason: Headache Stop: 04/27/18 15:42 Last Admin: 04/22/18 20:39 Dose: 30 mg Ondansetron HCl (Zofran) 4 mg IV Q4HR PRN PRN Reason: Nausea And Vomiting Last Admin: 04/21/18 20:54 Dose: 4 mg Ondansetron HCl (Zofran Odt) 4 mg PO Q8HR PRN PRN Reason: Nausea And Vomiting Discontinued Medications Diphenhydramine HCl (Benadryl) 25 mg IV NOW ONE Stop: 04/21/18 15:32 Last Admin: 04/21/18 15:42 Dose: 25 mg Hydromorphone HCl (Dilaudid) 1 mg IV NOW ONE Stop: 04/21/18 15:32 Last Admin: 04/21/18 15:43 Dose: 1 mg Sodium Chloride (Normal Saline 0.9%) 1,000 mls @ 1,000 mls/hr IV BOLUS ONE Stop: 04/21/18 14:24 Last Infusion: 04/21/18 14:52 Dose: 0 mls/hr Admin: 04/21/18 13:36 Dose: 1,000 mls/hr Sodium Chloride (Normal Saline 0.9%) 1,000 mls @ 125 mls/hr IV CONT [facility] Last Admin: 04/21/18 18:10 Dose: 125 mls/hr Ondansetron HCl (Zofran) 4 mg IV NOW ONE Stop: 04/21/18 13:09 Last Admin: 04/21/18 13:09 Dose: 4 mg Ondansetron HCl (Zofran) 4 mg IV NOW ONE Stop: 04/21/18 15:32 Last Admin: 04/21/18 15:43 Dose: 4 mg Vital Signs - 8 hr 04/23/18 06:00 04/23/18 07:30 04/23/18 08:01 Temperature 98.2 F 98.0 F Pulse Rate 80 80 Respiratory Rate 16 16 Blood Pressure 148/74 H 144/74 H Pulse Oximetry 98 97 96 <Jose Guadalupe Gregorio, - Last Filed: 04/23/18 10:15> Orders Ordered: ED Orders 04/23/18 05:45 Basic Metabolic Panel Routine Complete Blood Count AUTO DIFF Routine Enoxaparin Sodium (Lovenox) 40 mg SUBCUT DAILY [facility] Last Admin: 04/23/18 08:31 Dose: 40 mg Hydromorphone HCl (Dilaudid) 2 mg IV Q4HR PRN PRN Reason: Pain, Moderate (4-6) Last Admin: 04/22/18 14:30 Dose: 2 mg Admin: 04/22/18 07:41 Dose: 2 mg Admin: 04/21/18 20:54 Dose: 2 mg Dextrose/Sodium Chloride (Dextrose 5%-0.9% Ns) 1,000 mls @ 150 mls/hr IV CONT [facility] Last Admin: 04/23/18 09:48 Dose: 150 mls/hr Infusion: 04/23/18 09:48 Dose: 150 mls/hr Admin: 04/23/18 03:35 Dose: 150 mls/hr Infusion: 04/22/18 21:01 Dose: 150 mls/hr Admin: 04/22/18 14:20 Dose: 150 mls/hr Infusion: 04/22/18 14:19 Dose: 150 mls/hr Admin: 04/22/18 07:38 Dose: 150 mls/hr Infusion: 04/22/18 07:38 Dose: 150 mls/hr Admin: 04/22/18 01:01 Dose: 150 mls/hr Infusion: 04/22/18 01:01 Dose: 150 mls/hr Admin: 04/21/18 18:47 Dose: 150 mls/hr Ketorolac Tromethamine (Toradol) 30 mg IV Q6HR PRN PRN Reason: Headache Stop: 04/27/18 15:42 Last Admin: 04/22/18 20:39 Dose: 30 mg Ondansetron HCl (Zofran) 4 mg IV Q4HR PRN PRN Reason: Nausea And Vomiting Last Admin: 04/21/18 20:54 Dose: 4 mg Ondansetron HCl (Zofran Odt) 4 mg PO Q8HR PRN PRN Reason: Nausea And Vomiting Discontinued Medications Diphenhydramine HCl (Benadryl) 25 mg IV NOW ONE Stop: 04/21/18 15:32 Last Admin: 04/21/18 15:42 Dose: 25 mg Hydromorphone HCl (Dilaudid) 1 mg IV NOW ONE Stop: 04/21/18 15:32 Last Admin: 04/21/18 15:43 Dose: 1 mg Sodium Chloride (Normal Saline 0.9%) 1,000 mls @ 1,000 mls/hr IV BOLUS ONE Stop: 04/21/18 14:24 Last Infusion: 04/21/18 14:52 Dose: 0 mls/hr Admin: 04/21/18 13:36 Dose: 1,000 mls/hr Sodium Chloride (Normal Saline 0.9%) 1,000 mls @ 125 mls/hr IV CONT MUKUL Last Admin: 04/21/18 18:10 Dose: 125 mls/hr Ondansetron HCl (Zofran) 4 mg IV NOW ONE Stop: 04/21/18 13:09 Last Admin: 04/21/18 13:09 Dose: 4 mg Ondansetron HCl (Zofran) 4 mg IV NOW ONE Stop: 04/21/18 15:32 Last Admin: 04/21/18 15:43 Dose: 4 mg Vital Signs - 8 hr 04/23/18 06:00 04/23/18 07:30 04/23/18 08:01 Temperature 98.2 F 98.0 F Pulse Rate 80 80 Respiratory Rate 16 16 Blood Pressure 148/74 H 144/74 H Pulse Oximetry 98 97 96 MDM - Abdominal Pain <SHAMA Sandhu - Last Filed: 04/21/18 22:17> Lab Data Result diagrams: 04/23/18 05:45 04/23/18 05:45 Lab Results 04/21/18 04/21/18 04/21/18 Range/Units 14:05 14:05 14:05 WBC 11.1 H (4.5-11.0) X10^3/uL RBC 5.06 (4.0-5.2) X10^6/uL Hgb 15.9 (12.0-16.0) g/dL Hct 45.5 (36-46) % MCV 90.0 (80-100) fL MCH 31.4 (26-34) PG MCHC 34.9 (30-36) % RDW 12.9 (11.6-14.8) % Plt Count 297 (150-400) X10^3/uL Neut % (Auto) 76.4 H (50-75) % Lymph % (Auto) 15.3 L (25-40) % [place] % (Auto) 6.5 (3-14) % Eos % (Auto) 1.1 L (2-4) % Baso % (Auto) 0.7 (0-2) % Neut # (Auto) 8500 H (3947-9829) /uL PT 12.7 (10.1-12.7) SECONDS INR 1.2 (0.9-1.3) APTT 29 (26.4-36.2) SECONDS Sodium 142 (137-145) mmol/L Potassium 4.6 (3.4-5.1) mmol/L Chloride 103 (98-107) mmol/L Carbon Dioxide 29 (22-32) mmol/L BUN 12 (7-17) mg/dL Creatinine 0.60 (0.52-1.04) mg/dL Estimated GFR > 60.0 (>60) mL/min BUN/Creatinine Ratio 20.0 (6-22) Glucose 95 (70-100) mg/dL Calcium 9.1 (8.4-10.2) mg/dL Total Bilirubin 0.5 (0.2-1.3) mg/dL AST 32 (14-36) IU/L ALT 53 H (9-52) IU/L Alkaline Phosphatase 70 (38-126) U/L Total Protein 7.2 (6.3-8.2) g/dL Albumin 4.1 (3.5-5.0) g/dL Globulin 3.1 (1.7-4.1) g/dL Albumin/Globulin Ratio 1.3 (1.0-2.8) Lipase 78 (23-300) U/L 04/22/18 04/22/18 04/23/18 Range/Units 05:16 05:16 05:45 WBC 5.9 5.6 (4.5-11.0) X10^3/uL RBC 4.38 4.06 (4.0-5.2) X10^6/uL Hgb 13.9 13.0 (12.0-16.0) g/dL Hct 40.1 37.3 (36-46) % MCV 91.6 92.0 (80-100) fL MCH 31.7 32.0 (26-34) PG MCHC 34.6 34.7 (30-36) % RDW 12.8 13.0 (11.6-14.8) % Plt Count 242 222 (150-400) X10^3/uL Neut % (Auto) 57.9 52.6 (50-75) % Lymph % (Auto) 28.6 33.5 (25-40) % [place] % (Auto) 9.5 10.0 (3-14) % Eos % (Auto) 3.0 2.6 (2-4) % Baso % (Auto) 1.0 1.3 (0-2) % Neut # (Auto) 3400 2900 L (2182-1485) /uL PT (10.1-12.7) SECONDS INR (0.9-1.3) APTT (26.4-36.2) SECONDS Sodium 141 (137-145) mmol/L Potassium 3.6 (3.4-5.1) mmol/L Chloride 105 (98-107) mmol/L Carbon Dioxide 29 (22-32) mmol/L BUN 15 (7-17) mg/dL Creatinine 0.70 (0.52-1.04) mg/dL Estimated GFR > 60.0 (>60) mL/min BUN/Creatinine Ratio 21.4 (6-22) Glucose 120 H (70-100) mg/dL Calcium 8.2 L (8.4-10.2) mg/dL Total Bilirubin 0.4 (0.2-1.3) mg/dL AST 44 H (14-36) IU/L ALT 61 H (9-52) IU/L Alkaline Phosphatase 58 (38-126) U/L Total Protein 5.7 L (6.3-8.2) g/dL Albumin 3.2 L (3.5-5.0) g/dL Globulin 2.5 (1.7-4.1) g/dL Albumin/Globulin Ratio 1.3 (1.0-2.8) Lipase (23-300) U/L 04/23/18 Range/Units 05:45 WBC (4.5-11.0) X10^3/uL RBC (4.0-5.2) X10^6/uL Hgb (12.0-16.0) g/dL Hct (36-46) % MCV (80-100) fL MCH (26-34) PG MCHC (30-36) % RDW (11.6-14.8) % Plt Count (150-400) X10^3/uL Neut % (Auto) (50-75) % Lymph % (Auto) (25-40) % [place] % (Auto) (3-14) % Eos % (Auto) (2-4) % Baso % (Auto) (0-2) % Neut # (Auto) (0199-7909) /uL PT (10.1-12.7) SECONDS INR (0.9-1.3) APTT (26.4-36.2) SECONDS Sodium 141 (137-145) mmol/L Potassium 3.9 (3.4-5.1) mmol/L Chloride 106 (98-107) mmol/L Carbon Dioxide 28 (22-32) mmol/L BUN 11 (7-17) mg/dL Creatinine 0.60 (0.52-1.04) mg/dL Estimated GFR > 60.0 (>60) mL/min BUN/Creatinine Ratio 18.3 (6-22) Glucose 109 H (70-100) mg/dL Calcium 8.4 (8.4-10.2) mg/dL Total Bilirubin (0.2-1.3) mg/dL AST (14-36) IU/L ALT (9-52) IU/L Alkaline Phosphatase (38-126) U/L Total Protein (6.3-8.2) g/dL Albumin (3.5-5.0) g/dL Globulin (1.7-4.1) g/dL Albumin/Globulin Ratio (1.0-2.8) Lipase (23-300) U/L Point of care testing: Urine Dip Bedside Urine Glucose Negative Bedside Urine Bilirubin - Negative Bedside Urine Ketone - Negative Urine Specific [place] 1.015 Bedside Urine Occult Blood - Negative Bedside Urine pH 6.0 Bedside Urine Protein - Negative Bedside Urine Urobilinogen - Negative Bedside Urine Nitrite - Negative Bedside Urine Leukocytes - Negative Esterase Imaging Data US - abdomen: Radiologist's impression: [address] [address] Ultrasound Report Signed Patient: Carol Reyes LMR#: [id number] : 1965Acct:[id number] Age/Sex: 53 / FDate of Service: 04/21/18 Loc: ED Accession Number: [id number] Procedure: US abdomen complete Ordering Provider: Juan Manuel Kurtz PROCEDURE: US ABDOMEN COMPLETE INDICATIONS: PAIN TECHNIQUE: Real-time scanning was performed of the abdominal and retroperitoneal organs, with image documentation. COMPARISON: [facility], CR, XR ACUTE ABDOMEN SERIES, 04/21/2018, 15:18. [facility], CT, CT ABDOMEN PELVIS W CON, 04/15/2018, 17:13. FINDINGS: Liver: Liver is normal in size with steatosis. Gallbladder: Gallbladder is unremarkable. Biliary ducts: Intrahepatic bile ducts are non-dilated. Extrahepatic bile duct caliber measures 4.8 mm. Normal is 6-7 mm or less in diameter, or 10 mm or less post-cholecystectomy. Pancreas: Not visualized. Spleen: Spleen is normal in size and homogeneous in echotexture. Kidneys: Kidneys are normal in size and echotexture. Right kidney measures 11.4 cm long; left kidney measures 12.3 cm long. No hydronephrosis or nephrolithiasis. No solid masses. Aorta: Not visualized. Iliacs: Not visualized. IVC: Not visualized. Miscellaneous: No free abdominal fluid. IMPRESSION: 1. Mild hepatic steatosis., Otherwise unremarkable exam. Dictated by: Kristin Benton M.D. on 04/21/2018 at 16:20 Approved by: Kristin Benton M.D. on 04/21/2018 at 16:21 Abdominal x-ray: Radiologist's impression: [address] [place] [id number] XRay Report Signed Patient: Carol Reyes LMR#: [id number] : 1965Acct:[id number] Age/Sex: 53 / FDate of Service: 04/21/18 Loc: ED Accession Number: [id number] Procedure: XR acute abdomen series Ordering Provider: Juan Manuel Kurtz PROCEDURE: XR ACUTE ABDOMEN SERIES INDICATIONS: Continued abdominal pain nausea vomiting TECHNIQUE: One view chest and two views of the abdomen were acquired. COMPARISON: [facility], ABDOMEN COMPLETE, 04/21/2018, 14:53. FINDINGS: Surgical changes and devices: None. Chest: Lungs are clear. Heart size is normal. No pleural effusions. No pneumoperitoneum. Abdomen: Bowel gas pattern demonstrates several mildly dilated small bowel fluid levels. No suspicious calcifications. Visualized solid organ contours appear normal. Bones: No suspicious bony lesions. IMPRESSION: Several small bowel fluid levels consistent with partial small bowel structure. Dictated by: Kristin Benton M.D. on 04/21/2018 at 16:19 Approved by: Kristin Benton M.D. on 04/21/2018 at 16:19 ECG Data Interpretation: EKG shows normal sinus rhythm with no ST elevation or depression. No ectopy. Ventricular rate of 87. Pr interval 129. QRS duration of 90. QT 368 MDM Narrative Medical decision making narrative: CBC and Chem panel were obtained and were unremarkable. White count from the 15 of April is decreased 15.2 to 11.1. Lipase was negative. Liver enzymes were unremarkable. Ultrasound of the abdomen was obtained negative for any acute findings. Acute abdominal series was obtained and shows findings consistent with partial small-bowel obstruction. NG tube was placed. Discussed case with Dr. Vaughn hospitalist patient is admitted to observation for further care <Jose Guadalupe Gregorio DO - Last Filed: 04/23/18 10:15> Lab Data Lab Results 04/21/18 04/21/18 04/21/18 Range/Units 14:05 14:05 14:05 WBC 11.1 H (4.5-11.0) X10^3/uL RBC 5.06 (4.0-5.2) X10^6/uL Hgb 15.9 (12.0-16.0) g/dL Hct 45.5 (36-46) % MCV 90.0 (80-100) fL MCH 31.4 (26-34) PG MCHC 34.9 (30-36) % RDW 12.9 (11.6-14.8) % Plt Count 297 (150-400) X10^3/uL Neut % (Auto) 76.4 H (50-75) % Lymph % (Auto) 15.3 L (25-40) % [place] % (Auto) 6.5 (3-14) % Eos % (Auto) 1.1 L (2-4) % Baso % (Auto) 0.7 (0-2) % Neut # (Auto) 8500 H (8853-0028) /uL PT 12.7 (10.1-12.7) SECONDS INR 1.2 (0.9-1.3) APTT 29 (26.4-36.2) SECONDS Sodium 142 (137-145) mmol/L Potassium 4.6 (3.4-5.1) mmol/L Chloride 103 (98-107) mmol/L Carbon Dioxide 29 (22-32) mmol/L BUN 12 (7-17) mg/dL Creatinine 0.60 (0.52-1.04) mg/dL Estimated GFR > 60.0 (>60) mL/min BUN/Creatinine Ratio 20.0 (6-22) Glucose 95 (70-100) mg/dL Calcium 9.1 (8.4-10.2) mg/dL Total Bilirubin 0.5 (0.2-1.3) mg/dL AST 32 (14-36) IU/L ALT 53 H (9-52) IU/L Alkaline Phosphatase 70 (38-126) U/L Total Protein 7.2 (6.3-8.2) g/dL Albumin 4.1 (3.5-5.0) g/dL Globulin 3.1 (1.7-4.1) g/dL Albumin/Globulin Ratio 1.3 (1.0-2.8) Lipase 78 (23-300) U/L 04/22/18 04/22/18 04/23/18 Range/Units 05:16 05:16 05:45 WBC 5.9 5.6 (4.5-11.0) X10^3/uL RBC 4.38 4.06 (4.0-5.2) X10^6/uL Hgb 13.9 13.0 (12.0-16.0) g/dL Hct 40.1 37.3 (36-46) % MCV 91.6 92.0 (80-100) fL MCH 31.7 32.0 (26-34) PG MCHC 34.6 34.7 (30-36) % RDW 12.8 13.0 (11.6-14.8) % Plt Count 242 222 (150-400) X10^3/uL Neut % (Auto) 57.9 52.6 (50-75) % Lymph % (Auto) 28.6 33.5 (25-40) % [place] % (Auto) 9.5 10.0 (3-14) % Eos % (Auto) 3.0 2.6 (2-4) % Baso % (Auto) 1.0 1.3 (0-2) % Neut # (Auto) 3400 2900 L (3124-4343) /uL PT (10.1-12.7) SECONDS INR (0.9-1.3) APTT (26.4-36.2) SECONDS Sodium 141 (137-145) mmol/L Potassium 3.6 (3.4-5.1) mmol/L Chloride 105 (98-107) mmol/L Carbon Dioxide 29 (22-32) mmol/L BUN 15 (7-17) mg/dL Creatinine 0.70 (0.52-1.04) mg/dL Estimated GFR > 60.0 (>60) mL/min BUN/Creatinine Ratio 21.4 (6-22) Glucose 120 H (70-100) mg/dL Calcium 8.2 L (8.4-10.2) mg/dL Total Bilirubin 0.4 (0.2-1.3) mg/dL AST 44 H (14-36) IU/L ALT 61 H (9-52) IU/L Alkaline Phosphatase 58 (38-126) U/L Total Protein 5.7 L (6.3-8.2) g/dL Albumin 3.2 L (3.5-5.0) g/dL Globulin 2.5 (1.7-4.1) g/dL Albumin/Globulin Ratio 1.3 (1.0-2.8) Lipase (23-300) U/L 04/23/18 Range/Units 05:45 WBC (4.5-11.0) X10^3/uL RBC (4.0-5.2) X10^6/uL Hgb (12.0-16.0) g/dL Hct (36-46) % MCV (80-100) fL MCH (26-34) PG MCHC (30-36) % RDW (11.6-14.8) % Plt Count (150-400) X10^3/uL Neut % (Auto) (50-75) % Lymph % (Auto) (25-40) % [place] % (Auto) (3-14) % Eos % (Auto) (2-4) % Baso % (Auto) (0-2) % Neut # (Auto) (3704-6399) /uL PT (10.1-12.7) SECONDS INR (0.9-1.3) APTT (26.4-36.2) SECONDS Sodium 141 (137-145) mmol/L Potassium 3.9 (3.4-5.1) mmol/L Chloride 106 (98-107) mmol/L Carbon Dioxide 28 (22-32) mmol/L BUN 11 (7-17) mg/dL Creatinine 0.60 (0.52-1.04) mg/dL Estimated GFR > 60.0 (>60) mL/min BUN/Creatinine Ratio 18.3 (6-22) Glucose 109 H (70-100) mg/dL Calcium 8.4 (8.4-10.2) mg/dL Total Bilirubin (0.2-1.3) mg/dL AST (14-36) IU/L ALT (9-52) IU/L Alkaline Phosphatase (38-126) U/L Total Protein (6.3-8.2) g/dL Albumin (3.5-5.0) g/dL Globulin (1.7-4.1) g/dL Albumin/Globulin Ratio (1.0-2.8) Lipase (23-300) U/L Point of care testing: Urine Dip Bedside Urine Glucose Negative Bedside Urine Bilirubin - Negative Bedside Urine Ketone - Negative Urine Specific [place] 1.015 Bedside Urine Occult Blood - Negative Bedside Urine pH 6.0 Bedside Urine Protein - Negative Bedside Urine Urobilinogen - Negative Bedside Urine Nitrite - Negative Bedside Urine Leukocytes - Negative Esterase Discharge Plan Departure Patient Disposition: Admitted As Inpatient Clinical Impression: Small bowel obstruction Discharge Date/Time: 04/21/18 17:46 Interventions: ED Discharge Assessment Last Done: 04/21/18 17:37 Admit Date/Time: 04/21/18 17:36 Admit Provider: Tate Vaughn <Jose Guadalupe Gregorio DO - Last Filed: 04/23/18 10:15> Cosign ED Attending Cosignature Attestation: I was immediately available in the department for consultation. Documentation has been reviewed. I agree with assessment and plan.
[2018-04-21] MEDS: SODIUM CHLORIDE 0.9% 1,000 ML 125 ML IV (18:10)
[2018-04-21] MEDS: DEXTROSE 5%-0.9% NS 1,000 ML 150 ML IV (18:47)
--- NOTE | 2018-04-21 18:47 | P.HP_ITS ---
History of Present Illness Date Patient Seen: 04/21/18 Time Patient Seen: 18:43 Chief complaint: NAUSEA/VOMITING FOR OVER A WEEK Narrative: 53-year-old female presents with persistent nausea and vomiting for the past week. She was seen in the ER few days ago thought she had a gastroenteritis and sent her home she felt better for a while then over the last 48 hr again with nausea and vomiting and has not had a bowel movement for several days. No fever with this no focal abdominal pain. Never had similar symptoms like this. No hematemesis Patient History Medical History HTN (hypertension) (Chronic) Migraine (Chronic) Surgical History Status post appendectomy (Resolved) Status post hysterectomy (Resolved) Family & Social History Family History: Reviewed 04/21/18 by Tate Vaughn MD Social History: household members significant other,family Prior Living Arrangements House Safety & Behavioral: Feels Safe in Current Yes Environment Been Physically Hurt or No Threatened By a Person Suicidal Ideation Description None Suicide Plan Description No Plan Tobacco & Substance use: Smoking Status Current every day smoker Smoking packs per day 1 alcohol intake frequency holiday/special occasion Substance Use Type does not use Meds Home Medications Medication Instructions Recorded Confirmed Type lisinopril 10 mg PO DAILY 04/21/18 04/21/18 History Allergies Allergy/AdvReac Type Severity Reaction Status Date / Time Penicillins Allergy Intermediate Hives Verified 04/21/18 12:58 ranitidine [From Zantac] Allergy Intermediate Hives Verified 04/21/18 12:58 Review of Systems Constitutional Constitutional: Reports system reviewed and no additional complaints, except as documented Eyes Eyes: Reports system reviewed; no additional complaints, except as documented ENT Ears, Nose, Mouth, and Throat: Yes system reviewed; no additional complaints, except as documented Cardiovascular Cardiovascular: Reports system reviewed; no additional complaints, except as documented Respiratory Respiratory: Reports system reviewed and no additional complaints, except as documented Gastrointestinal Gastrointestinal: Reports bloating, Reports nausea, Reports vomiting and Denies hematemesis Genitourinary Genitourinary: Reports system reviewed and no additional complaints, except as documented Musculoskeletal Musculoskeletal: Reports system reviewed; no additional complaints, except as documented Integumentary/Breasts Skin/Breast: Reports system reviewed and no additional complaints, except as documented Neurologic Neurologic: Reports system reviewed and no additional complaints, except as documented Psychiatric Psychiatric: Reports system reviewed and no additional complaints, except as documented Endocrine Endocrine: Reports system reviewed and no additional complaints, except as documented Hematologic/Lymphatic Hematologic/Lymphatic: Reports system reviewed and no additional complaints, except as documented Allergic/Immunologic Allergic/Immunologic: Reports system reviewed and no additional complaints, except as documented Exam Vital Signs (past 8 hours): - 04/21/18 12:54 04/21/18 14:23 04/21/18 15:00 Temperature 98.5 F Pulse Rate 96 H 80 85 Respiratory Rate 16 24 Blood Pressure 181/119 H Blood Pressure [Right Arm] 193/115 H 188/112 H Pulse Oximetry 98 100 98 04/21/18 16:30 04/21/18 17:37 04/21/18 17:45 Temperature 98.5 F Pulse Rate 95 H 94 H 102 H Respiratory Rate 20 18 Blood Pressure 153/83 H 148/98 H Blood Pressure [Right Arm] 153/83 H Pulse Oximetry 100 95 96 Oxygen Delivery Method Room Air Narrative Exam Narrative: Middle-aged female appears uncomfortable has NG tube in place to low intermittent suction Oral mucosa dry Neck is supple Lungs clear Heart regular rhythm Abdomen was mildly distended. Bowel sounds are present but hypoactive No masses Skin warm and dry Neuro exam unremarkable with wake alert oriented speech normal no focal deficits Lower extremities no edema Objective Labs Result Diagrams: 04/21/18 14:05 04/21/18 14:05 Labs: Laboratory Results - last 24 hr 04/21/18 04/21/18 04/21/18 14:05 14:05 14:05 WBC 11.1 H RBC 5.06 Hgb 15.9 Hct 45.5 MCV 90.0 MCH 31.4 MCHC 34.9 RDW 12.9 Plt Count 297 Neut % (Auto) 76.4 H Lymph % (Auto) 15.3 L [place] % (Auto) 6.5 Eos % (Auto) 1.1 L Baso % (Auto) 0.7 Neut # (Auto) 8500 H PT 12.7 INR 1.2 APTT 29 Sodium 142 Potassium 4.6 Chloride 103 Carbon Dioxide 29 BUN 12 Creatinine 0.60 Estimated GFR > 60.0 BUN/Creatinine Ratio 20.0 Glucose 95 Calcium 9.1 Total Bilirubin 0.5 AST 32 ALT 53 H Alkaline Phosphatase 70 Total Protein 7.2 Albumin 4.1 Globulin 3.1 Albumin/Globulin Ratio 1.3 Lipase 78 Assessment & Plan Plan: Assessment/Plan Narrative: One. Abdominal pain persistent nausea and vomiting x-rays today showing partial bowel obstruction. Plan to continue with the NG suctioning started in the ER she seems to be feeling better. Observation status initially IV fluids NPO status and then see how she feels in the morning. If she is not better then CT scan of the abdomen with contrast should be done 2. History of hypertension plan to hold her oral medications for now
--- NOTE | 2018-04-21 19:07 | PC.NURSE ---
Admission/Evening Shift Note- Patient arrived to room via stretcher from ER. Patient able to walk on her own with steady gait noted from stretcher to bed. Admission questiohns completed, home medications reviewed, and physical assessment done. New tubing placed to NG tube and set to L.I.S. as ordered. Oriented patient to bed and bed controls, room, bathroom, lights, menu, and call byrnes/tv remote. patient agrees to call for assistance. safety measures in place. Call byrnes and phone within reach. Will continue to monitor.
[2018-04-21] MEDS: HYDROMORPHONE 2 MG INJ IV (20:54)
[2018-04-22] VITALS (9 sets, daily range): BP systolic 128–149; BP diastolic 77–89; PULSE 72–81; RESP 16–20; TEMP 36.6–36.9; O2SAT 95–97
--- NOTE | 2018-04-22 | DI.CT.S_ITS ---
PROCEDURE: CT ABDOMEN PELVIS W CON INDICATIONS: SBO TECHNIQUE: After the administration of intravenous contrast, 5 mm thick sections acquired from the diaphragm to the symphysis. 5 mm coronal and sagittal reformats were acquired. For radiation dose reduction, the following was used: automated exposure control, adjustment of mA and/or kV according to patient size. COMPARISON: [facility], CR, XR ACUTE ABDOMEN SERIES, 04/21/2018, 15:18. [facility], US, US ABDOMEN COMPLETE, 04/21/2018, 14:53. [facility], CT, CT ABDOMEN PELVIS W CON, 04/15/2018, 17:13. FINDINGS: Image quality: Excellent. ABDOMEN: Lung bases: Lung bases are clear. Heart size is normal. Solid organs: There is diffuse hepatic steatosis. Gallbladder is unremarkable . Biliary system is non dilated. Pancreas enhances normally. 1.0 cm hypoattenuating focus in the inferior spleen likely represents a cyst or hemangioma. No adrenal nodules. Kidneys demonstrate normal size and enhancement, without hydronephrosis. Peritoneum and bowel: Nasogastric tube terminates within the stomach. The appendix is not clearly identified on this exam but there are no right lower quadrant inflammatory findings to suggest acute appendicitis. Several loops of small bowel/jejunum in the left hemiabdomen demonstrate dilitation up to a maximal diameter of 3.2 cm, with air-fluid levels seen. Adjacent mesenteric lymph nodes measure at the upper limites of normal in size. No free air. Trace free fluid within physiologic limits. Nodes and vessels: No retroperitoneal or mesenteric adenopathy by size criteria. Aorta and inferior vena cava are normal in size. There is mild calcified plaque of the abdominal aorta. Miscellaneous: No ventral hernias. PELVIS: Genitourinary: Bladder wall thickness is normal. Miscellaneous: No inguinal hernias or adenopathy. The uterus is absent. No abnormal adnexal masses. Bones: No suspicious bony lesions. No vertebral body compression fractures. Mild multilevel degenerative changes of the imaged spine. IMPRESSION: Findings concerning for small bowel obstruction, which may be early/developing or partial in nature given that it is localized to the left hemiabdomen. There is no free intraperitoneal air to suggest perforation. Follow-up imaging to resolution recommended. Dictated by: Yoseph Best M.D. on 04/23/2018 at 4:08 Approved by: Yoseph Best M.D. on 04/23/2018 at 4:30
[2018-04-22] MEDS: DEXTROSE 5%-0.9% NS 1,000 ML 150 ML IV ×3 (01:01→14:20)
--- NOTE | 2018-04-22 01:06 | PC.NURSE ---
Process Development Manager Note: 0030: Awake, watching TV. Pt states her pain is minimal at this time, and denies nausea. NGT in place, to low intermittent suction, and checked for placement; gastric secretions in cannister are light yellow/green. IV in place in lt forearm, with D5NS infusing at 150cc/hr.
[2018-04-22 05:43] LABS: Add Manual Diff / Slide Review NO; Hematocrit 40.1 % (36-46); Hemoglobin 13.9 g/dL (12.0-16.0); Lymphocytes Percent Auto 28.6 % (25-40); Mean Corpuscular HGB Conc 34.6 % (30-36); Mean Corpuscular Hemoglobin 31.7 PG (26-34); Mean Corpuscular Volume 91.6 fL (80-100); Monocytes Percent Auto 9.5 % (3-14); Neutrophils Absolute Auto 3400 /uL (3000-5900); Neutrophils Percent Auto 57.9 % (50-75); Platelet Count 242 X10^3/uL (150-400); Red Blood Cell Count 4.38 X10^6/uL (4.0-5.2); Red Cell Distribution Width 12.8 % (11.6-14.8); White Blood Cell Count 5.9 X10^3/uL (4.5-11.0)
[2018-04-22 05:52] LABS: Alanine Aminotransferase 61 IU/L (9-52); Albumin 3.2 g/dL (3.5-5.0); Albumin Globulin Ratio 1.3 (1.0-2.8); Alkaline Phosphatase 58 U/L (38-126); Aspartate Aminotransferase 44 IU/L (14-36); BUN Creatinine Ratio 21.4 (6-22); Bilirubin Total 0.4 mg/dL (0.2-1.3); Blood Urea Nitrogen 15 mg/dL (7-17); Calcium 8.2 mg/dL (8.4-10.2); Carbon Dioxide 29 mmol/L (22-32); Chloride 105 mmol/L (98-107); Estimated Glomerular Filt Rate > 60.0 mL/min (>60); Globulin 2.5 g/dL (1.7-4.1); Glucose 120 mg/dL (70-100); HEMOLYSIS < 15 (0-50); Potassium 3.6 mmol/L (3.4-5.1); Sodium 141 mmol/L (137-145); Total Protein 5.7 g/dL (6.3-8.2)
[2018-04-22] MEDS: HYDROMORPHONE 2 MG INJ IV ×2 (07:41→14:30)
--- NOTE | 2018-04-22 09:29 | PC.NURSE ---
Addendum entered by Tania Aldrich R.N. 04/22/18 14:45: Has taken approx 600 ml clear liquids without N/V or abd pain. Dr Lemus was updated and she was advanced to full liquids. NG remains in place and clamped. Given some yogurt at this time. Medicated with 2 mg IV Dilaudid for headache. Voided once this shift (250 ml dark paola urine), denied post-void urgency. Resting in bed visiting with family. Call light in reach. Original Note: Addendum entered by Tania Aldrich R.N. 04/22/18 10:16: NG clamped per new order. Patient given ice chips, water and apple juice (new order for clear liquid diet). Encouraged to take PO's cautiously at first and she agreed she would. Reports headache resolved. Agrees to call for SBA to BR/BSC. States no needs now. Light in reach. Original Note: Shift summary: Alert and oriented X3. Awake at change of shift and C/O 7/10 headache. Medicated with 2 mg IV Dilaudid, gave her an ice pack and darkened the room. She's resting quietly now and appears comfortable, pain 0 on FLACC scale. NG well secured and to LIS- minimal clear yellowish green output. Denies nausea or abdominal pain. Bowel tones hypoactive, but present in all 4 quadrants. She is passing flatus. She states her belly is a bit distended compared to normal, but that it has improved since admit. IVF per order, site in L forearm WNL. Indep with bed mobility and agrees to call for assist to commode when she needs it. Call light in reach.
--- NOTE | 2018-04-22 10:25 | CM.DANOTE ---
Patient is a 53 year old female who was admitted on 04/21/18 for Partial Bowel Obstruction. Pt has No Insurance and no listed PCP. EMR was reviewed. Per MD, pt has partial bowel obstruction and started with NG Tube. SW met bedside with pt and explained role and pt confirmed that she lives at home in [place] with her life partner of 23 years and recently her grandkids moved in with them. Pt is typically Independent with ADL's at baseline and confirms that she does not have medical insurance but would like to meet with someone to help enroll her in insurance. SW emailed admissions counselors to see if they can meet with the pt during her admit stay here. Patient is not feeling well and currently her preference is to d/c home when medically stable. Plan: SW to follow closely for any further identified discharge planning needs. Admissions Counselors may be able to meet with pt to help her enroll in medical insurance. 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 No Advance Directives on File No History Provided By Patient Medical Record Has Patient been admitted in last 30 No days? Prior Living Arrangements House Household Members significant other family Comment Patient lives with her life partner of 23 years and recently her grandkids moved in with them. Type of transporation used prior to Drives own vehicle admit Independent with ADL's Yes Is patient alert and oriented? Yes Caregiver for Another Yes: malinda moved in with the pt and LP Comment Likely home with family when medically stable Barriers to Discharge Yes Comment Patient confirms that she does not have medical insurance but is interested in enrolling Discharge Plan Home Transportation Arrangement Significant other likely can provide transport at d/c. Referrals Initiated None needed Whiteboard Updated in Patient Room with Yes name and ext. # of Game Bird Farmer Review Status In Process Please Provide Date Initial DC 04/22/18 Assessment Was Performed Next Review Type Continued Stay Review
--- NOTE | 2018-04-22 18:16 | P.PN_ITS ---
Subjective Date Patient Seen: 04/22/18 Interval history: Patient was doing better this morning with decreased abdominal distension, no nausea, passing flatus, with no significant output from NG. We clamped NG tube. She tolerated clear liquid diet for lunch. We advanced diet to full liquid for supper and then she got acutely more distended and uncomfortable in upper abdomen as well as developed some nausea without vomiting. Subsequently further evaluation with CT scan has been ordered. Exam Vital Signs (past 8 hours): - 04/22/18 11:48 04/22/18 15:00 Temperature 97.9 F 98.3 F Pulse Rate 72 79 Respiratory Rate 17 18 Blood Pressure 128/82 138/77 Pulse Oximetry 96 96 Oxygen Delivery Method Room Air Oxygen Flow Rate 0 Narrative Exam Narrative: GENERAL: Alert and cooperative CHEST: Clear to auscultation bilaterally. CARDIAC: Regular rate and rhythm. ABDOMEN: This a.m. with hypoactive bowel sounds, not or minimally distended, nontender. Exam at 6:00 p.m. with some distension and tenderness in the upper abdomen with patient appearing somewhat uncomfortable. EXTREMITIES: no edema. NEUROLOGICAL: Alert, pleasant, no focal findings SKIN: Warm, dry, no petechiae, no rash Objective Labs Result Diagrams: 04/22/18 05:16 04/22/18 05:16 Labs: Laboratory Results - last 24 hr 04/22/18 04/22/18 05:16 05:16 WBC 5.9 RBC 4.38 Hgb 13.9 Hct 40.1 MCV 91.6 MCH 31.7 MCHC 34.6 RDW 12.8 Plt Count 242 Neut % (Auto) 57.9 Lymph % (Auto) 28.6 [place] % (Auto) 9.5 Eos % (Auto) 3.0 Baso % (Auto) 1.0 Neut # (Auto) 3400 Sodium 141 Potassium 3.6 Chloride 105 Carbon Dioxide 29 BUN 15 Creatinine 0.70 Estimated GFR > 60.0 BUN/Creatinine Ratio 21.4 Glucose 120 H Calcium 8.2 L Total Bilirubin 0.4 AST 44 H ALT 61 H Alkaline Phosphatase 58 Total Protein 5.7 L Albumin 3.2 L Globulin 2.5 Albumin/Globulin Ratio 1.3 Assessment & Plan Plan: Assessment/Plan Narrative: 1. Acute partial small bowel obstruction: Patient with initial improvement and seeming resolution of SBO, tolerated clear liquids, but then more distention and pain after advanced to full liquid diet. She has prior surgical history of appendectomy and hysterectomy. Plan: Make NPO. Keep NG clamped. Continue IV fluids. Abdomen and pelvis CT scan with contrast. 2. Headache: Patient has had headaches since admission. Dilaudid not helping the headaches. Ordered Toradol as needed. 3. DVT prophylaxis: Low-dose Lovenox Status changed from observation to inpatient due to concern of persistent bowel obstruction.
[2018-04-22] MEDS: KETOROLAC 30 MG/ML VIAL IV (20:39)
[2018-04-23] VITALS (12 sets, daily range): BP systolic 135–199; BP diastolic 63–111; PULSE 70–80; RESP 16–18; TEMP 36.6–37; O2SAT 96–99
[2018-04-23] MEDS: DEXTROSE 5%-0.9% NS 1,000 ML 150 ML IV ×3 (03:35→16:53)
[2018-04-23 06:11] LABS: Add Manual Diff / Slide Review NO; Basophils Percent Auto 1.3 % (0-2); Eosinophils Percent Auto 2.6 % (2-4); Hematocrit 37.3 % (36-46); Lymphocytes Percent Auto 33.5 % (25-40); Mean Corpuscular HGB Conc 34.7 % (30-36); Neutrophils Absolute Auto 2900 /uL (3000-5900); Neutrophils Percent Auto 52.6 % (50-75); Platelet Count 222 X10^3/uL (150-400); Red Blood Cell Count 4.06 X10^6/uL (4.0-5.2); White Blood Cell Count 5.6 X10^3/uL (4.5-11.0)
[2018-04-23 06:17] LABS: BUN Creatinine Ratio 18.3 (6-22); Blood Urea Nitrogen 11 mg/dL (7-17); Calcium 8.4 mg/dL (8.4-10.2); Carbon Dioxide 28 mmol/L (22-32); Chloride 106 mmol/L (98-107); Estimated Glomerular Filt Rate > 60.0 mL/min (>60); Glucose 109 mg/dL (70-100); HEMOLYSIS < 15 (0-50); Potassium 3.9 mmol/L (3.4-5.1); Sodium 141 mmol/L (137-145)
[2018-04-23] MEDS: ENOXAPARIN 40 MG/0.4 ML SYRINGE SUBCUT (08:31)
--- NOTE | 2018-04-23 10:15 | PC.NURSE ---
Day shift: Ok w/ Dr South to ambulate Pt. Ambulated the entire AC unit at a quick pace. Denied SOB. Tolerated well. No nausea. Pt wants to ambulate more today.
--- NOTE | 2018-04-23 12:18 | PC.NURSE ---
Day shift: Pt ambulating in entire AC unit with HANDLING TECH again. Tolerated well.
--- NOTE | 2018-04-23 13:26 | PC.NURSE ---
Day shift: Dr South made aware of Pt's BP of 190/108.
[2018-04-23] MEDS: KETOROLAC 30 MG/ML VIAL IV (13:43)
--- NOTE | 2018-04-23 13:55 | P.PN_ITS ---
Subjective Date Patient Seen: 04/23/18 Interval history: Patient developed bloating last night with advancing her diet to full liquid. She reports some abdominal cramping today. She denies nausea or vomiting. We discussed replacing the NG Tube and she was agreeable to doing so Exam Vital Signs (past 8 hours): - 04/23/18 06:00 04/23/18 07:30 04/23/18 08:01 Temperature 98.2 F 98.0 F Pulse Rate 80 80 Respiratory Rate 16 16 Blood Pressure 148/74 H 144/74 H Pulse Oximetry 98 97 96 04/23/18 12:43 04/23/18 13:25 Temperature 98.6 F Pulse Rate 78 Respiratory Rate 16 Blood Pressure 184/109 H 190/108 H Pulse Oximetry 98 Oxygen Delivery Method Room Air Oxygen Flow Rate 0 Narrative Exam Narrative: Pleasant female in No Acute Distress Lungs: Decreased breath sounds with occassional scattered rhonchi CV: RRR nl Sl S2 ABd: soft/ non tender/ non distended Ext: no edema Objective Labs Result Diagrams: 04/23/18 05:45 04/23/18 05:45 Labs: Laboratory Results - last 24 hr 04/23/18 04/23/18 05:45 05:45 WBC 5.6 RBC 4.06 Hgb 13.0 Hct 37.3 MCV 92.0 MCH 32.0 MCHC 34.7 RDW 13.0 Plt Count 222 Neut % (Auto) 52.6 Lymph % (Auto) 33.5 [place] % (Auto) 10.0 Eos % (Auto) 2.6 Baso % (Auto) 1.3 Neut # (Auto) 2900 L Sodium 141 Potassium 3.9 Chloride 106 Carbon Dioxide 28 BUN 11 Creatinine 0.60 Estimated GFR > 60.0 BUN/Creatinine Ratio 18.3 Glucose 109 H Calcium 8.4 Assessment & Plan (1) Small bowel obstruction: Problem details: Replace NGT. IV hydration, Antinausea medications, pain medications If unable to advance diet, will consult general surgery Current visit: Yes Status: Acute (2) Abdominal pain: Problem details: Secondary to Partial Small bowel obstruction Qualifiers: Abdominal location: upper abdomen, unspecified Qualified Code(s): R10.10 - Upper abdominal pain, unspecified Current visit: No Status: Acute (3) Morbid obesity: Current visit: Yes Status: Acute
[2018-04-23] MEDS: LABETALOL 20 MG/4 ML SYRINGE 5 MG IV (14:41)
--- NOTE | 2018-04-23 14:58 | CM.DPC ---
DCP Cont: Per Hospitalist , will attempt to advance pt's diet today but may need Surgical Consult if pt cannot tolerate advancing her diet. SW met bedside with pt and explained role again and NG tube is discontinued and pt states she is feeling much better but has not seen the doctor yet. Pt confirms that an Admissions Counselor met bedside with her regarding medical insurance and is working on getting the pt covered by insurance and pt is very thankful. SW saw pt ambulating halls well with SHIRT MAKER and seems to be progressing medically. Plan: SW to continue to follow to determine if pt tolerates her advanced diet towards likely d/c home with Significant Other. SW to follow for any further identified discharge planning needs. BRENDAN Daniels
--- NOTE | 2018-04-23 15:44 | DI.RAD.S_ITS ---
PROCEDURE: XR CHEST 1V INDICATIONS: NG tube placement confirmation TECHNIQUE: One view of the chest was acquired. COMPARISON: None. FINDINGS: Surgical changes and devices: Esophagogastric tube extends into the gastric lumen, and the side-port appears located in the gastric cardia.. Lungs and pleura: No pleural effusions or pneumothorax. Lungs are clear. Mediastinum: Mediastinal contours appear normal. Heart size is normal. Bones and chest wall: No suspicious bony lesions. Overlying soft tissues appear unremarkable. IMPRESSION: Reduced inspiratory volume. Esophagogastric tube positioning appears normal. Dictated by: Delroy Flores M.D. on 04/23/2018 at 16:16 Approved by: Delroy Flores M.D. on 04/23/2018 at 16:17
[2018-04-23] MEDS: ONDANSETRON 4 MG/2 ML INJ IV ×2 (17:00→21:43)
[2018-04-23] MEDS: HYDROMORPHONE 2 MG INJ IV ×2 (17:00→21:43)
--- NOTE | 2018-04-23 17:53 | PC.NURSE ---
Placed NG tube successfully at start of shift according to orders. BP is still elevated at start of shift, 161/111 at 1600 and 191/105 at 1630. Patient requested something for pain and nausea, gave Dilaudid and Zofran as ordered. Patient report a headache before clinical specialist medical device, reports it is now gone during pain reassessment. Rechecked BP 30 min after admin Dilaudid, BP down to 138/58 and pulse is 74. ordered additional BP med PRN in case BP elevates again, but this RN did not administer it d/t BP now WNL. XRay ordered per protocol to confirm placement of NGT, according to radiologist report NGT placement appears normal. Suction set to low and intermittent. Wall tube kept popping off of the canister, so this RN taped tube to canister to assure accurate suction. Fluid is draining, appears light brown in color. HOB is above 30 degrees. Patient resting at this time, call light in reach. Will continue to monitor.
[2018-04-24] VITALS (10 sets, daily range): BP systolic 117–147; BP diastolic 55–75; PULSE 70–85; RESP 15–19; TEMP 36.6–37; O2SAT 93–97
--- NOTE | 2018-04-24 | DI.RAD.S_ITS ---
PROCEDURE: XR KUB INDICATIONS: SMALL BOWEL OBSTRUCTION TECHNIQUE: One view of the abdomen acquired. COMPARISON: [facility], CR, XR ACUTE ABDOMEN SERIES, 04/21/2018, 15:18. FINDINGS: Surgical changes and devices: A nasogastric tube is identified with its tip overlying expected location of the fundus of the stomach. Bowel: Significant interval improvement in the bowel gas pattern is identified. There may be a few residual prominent air-filled small bowel loops within the left upper quadrant. However, the majority of the dilated small bowel loops seen on the prior study have resolved in the interim. Air and stool are seen within the expected location of the colon. Soft tissues: No suspicious abdominal calcifications. Visualized solid organ contours appear normal in size. Bones: No suspicious bony lesions. Degenerative changes of the spine and pelvic joints are similar to the prior study. IMPRESSION: Resolving small bowel obstruction. A few residual borderline prominent left upper quadrant small bowel loops are present. Dictated by: Javier Gonzáles M.D. on 04/24/2018 at 15:54 Approved by: Javier Gonzáles M.D. on 04/24/2018 at 15:56
[2018-04-24] MEDS: DEXTROSE 5%-0.9% NS 1,000 ML 150 ML IV ×4 (00:31→20:55)
[2018-04-24] MEDS: ONDANSETRON 4 MG/2 ML INJ IV ×5 (03:11→23:06)
[2018-04-24] MEDS: HYDROMORPHONE 2 MG INJ IV ×4 (03:11→23:06)
[2018-04-24 05:57] LABS: Add Manual Diff / Slide Review NO; Basophils Percent Auto 0.7 % (0-2); Eosinophils Percent Auto 2.1 % (2-4); Hemoglobin 12.4 g/dL (12.0-16.0); Lymphocytes Percent Auto 25.6 % (25-40); Mean Corpuscular HGB Conc 35.3 % (30-36); Mean Corpuscular Volume 90.5 fL (80-100); Monocytes Percent Auto 9.1 % (3-14); Neutrophils Absolute Auto 3900 /uL (3000-5900); Neutrophils Percent Auto 62.5 % (50-75); Platelet Count 237 X10^3/uL (150-400); Red Blood Cell Count 3.87 X10^6/uL (4.0-5.2); Red Cell Distribution Width 12.6 % (11.6-14.8); White Blood Cell Count 6.2 X10^3/uL (4.5-11.0)
[2018-04-24 06:01] LABS: BUN Creatinine Ratio 11.7 (6-22); Blood Urea Nitrogen 7 mg/dL (7-17); Calcium 8.3 mg/dL (8.4-10.2); Carbon Dioxide 28 mmol/L (22-32); Chloride 105 mmol/L (98-107); Estimated Glomerular Filt Rate > 60.0 mL/min (>60); Glucose 115 mg/dL (70-100); HEMOLYSIS < 15 (0-50); Potassium 3.5 mmol/L (3.4-5.1); Sodium 142 mmol/L (137-145)
[2018-04-24] MEDS: ENOXAPARIN 40 MG/0.4 ML SYRINGE SUBCUT (08:45)
--- NOTE | 2018-04-24 10:24 | PC.NURSE ---
Day shift: NG tube patent and set to medium suction. Per Dr South ok for Pt to have ice chips at this time. Pt still has mild nausea. ARNOLD pain has gone away after 2mg IV Dilaudid. Pt does appear uncomfortable and tired at this time. Will continue to monitor. Call light in reach.
--- NOTE | 2018-04-24 13:10 | PC.NURSE ---
Pt given zofran for dry heaves . Up to bathroom and back to bed. Zofran starting to help now. NG tube placement correct, checked with air and stethoscope. Pt is back to bed and sleeping now.
[2018-04-24] MEDS: KETOROLAC 30 MG/ML VIAL IV (15:05)
--- NOTE | 2018-04-24 16:32 | P.PN_ITS ---
Subjective Date Patient Seen: 04/24/18 Interval history: Very difficult day. Lots of dry heaves, still with significant NG output. She also has some abdominal discomfort. Overall she does not feel like she is making progress Exam Vital Signs (past 8 hours): - 04/24/18 08:39 04/24/18 12:00 Temperature 98.4 F Pulse Rate 79 Respiratory Rate 16 Blood Pressure 117/63 Pulse Oximetry 95 97 Oxygen Delivery Method Room Air Oxygen Flow Rate 0 Narrative Exam Narrative: Ill appearing female Lungs: clear to auscultation CV: RRR nl Sl S2 ABD: Soft/ non tender/ mildly distended Ext: no edema Objective Labs Result Diagrams: 04/24/18 05:17 04/24/18 05:17 Labs: Laboratory Results - last 24 hr 04/24/18 04/24/18 05:17 05:17 WBC 6.2 RBC 3.87 L Hgb 12.4 Hct 35.0 L MCV 90.5 MCH 32.0 MCHC 35.3 RDW 12.6 Plt Count 237 Neut % (Auto) 62.5 Lymph % (Auto) 25.6 [place] % (Auto) 9.1 Eos % (Auto) 2.1 Baso % (Auto) 0.7 Neut # (Auto) 3900 Sodium 142 Potassium 3.5 Chloride 105 Carbon Dioxide 28 BUN 7 Creatinine 0.60 Estimated GFR > 60.0 BUN/Creatinine Ratio 11.7 Glucose 115 H Calcium 8.3 L Assessment & Plan (1) Morbid obesity: Current visit: Yes Status: Acute (2) Vomiting: Problem details: Despite NG tube still with dry heaves Qualifiers: Nausea presence: with nausea Vomiting Intractability: non-intractable Vomiting type: unspecified Qualified Code(s): R11.2 - Nausea with vomiting, unspecified Current visit: No Status: Acute (3) Abdominal pain: Problem details: Secondary to Partial Small bowel obstruction Qualifiers: Abdominal location: upper abdomen, unspecified Qualified Code(s): R10.10 - Upper abdominal pain, unspecified Current visit: No Status: Acute (4) Small bowel obstruction: Problem details: Replace NGT. IV hydration, Antinausea medications, pain medications If unable to advance diet, will consult general surgery Will ask General Surgery to see. Consider UGI with small bowel follow thru. Will defer to surgery Current visit: Yes Status: Acute
--- NOTE | 2018-04-24 17:44 | PC.NURSE ---
Student Nurse Note: Patient experiencing severe migraine. Provided ice pack for head, and turned off all lights in the room. Patient reports feeling better when lights are off...implement in the future if patient experiences another migraine.
--- NOTE | 2018-04-24 20:47 | PM.CN ---
History of Present Illness Date Patient Seen: 04/24/18 Time Patient Seen: 20:47 Chief complaint: NAUSEA/VOMITING FOR OVER A WEEK Reason for consult: vomiting, abdominal pain Requesting provider: Eva South Narrative: 53-year-old obese female with history of hypertension and prior abdominal surgeries consisting of appendectomy and hysterectomy who presented to the emergency department twice within 1 week for abdominal pain and nausea. She presented the 2nd time 3 days ago 1 week after initially presenting with the above symptoms. She was treated empirically for gastroenteritis but continued to deteriorate at home with ongoing intermittent nausea and vomiting. She was unable to tolerate solid food and eventually had difficulty tolerating liquids as well. She denies any fever or chills. She has had some diffuse mild mid abdominal pain which she describes is mostly crampy but intermittently sharp. Pain does not radiate to the chest or the back. Occasionally she will experience some suprapubic discomfort but this is minimal. Her last bowel movement was actually several days ago. However, she is passing some flatus. No diarrhea. She has had no recent melena, hematochezia, or bright red blood per rectum. Which she presented the emergency department on April 21, 2018 she was found to have small-bowel obstruction for which she was admitted. Nasogastric tube was inserted and subsequently removed as she seemed to clinically improve. She was given a diet but then began to have issues throughout the day today with dry heaving and vomiting. She was unable to tolerate any liquids by mouth. Nasogastric tube was reinserted with return of bilious fluid. Patient is complaining of moderate discomfort secondary to the tube at the time of my visit. However, her dry heaving and vomiting have subsided. She has never had any type of similar symptoms in the past. [facility] Medical History Morbid obesity with BMI of 45.0-49.9, adult (Acute) HTN (hypertension) (Chronic) Migraine (Chronic) Surgical History Status post appendectomy (Resolved) Status post hysterectomy (Resolved) Social History household members: significant other and family Smoking Status: Current every day smoker Comment: Patient smokes half a pack of cigarettes per day and has done so for 25 years Meds Home Medications Medication Instructions Recorded Confirmed Type lisinopril 10 mg PO DAILY 04/21/18 04/21/18 History Allergies Allergy/AdvReac Type Severity Reaction Status Date / Time Penicillins Allergy Intermediate Hives Verified 04/21/18 12:58 ranitidine [From Zantac] Allergy Intermediate Hives Verified 04/21/18 12:58 Review of Systems Review of Systems All systems reviewed & are unremarkable except as noted in HPI and below Exam Vital Signs (past 8 hours): - 04/24/18 15:00 04/24/18 16:00 04/24/18 17:37 Temperature 98.6 F 98.1 F Pulse Rate 85 85 Respiratory Rate 18 Blood Pressure 145/65 H 147/75 H Pulse Oximetry 95 95 96 Oxygen Delivery Method Room Air Oxygen Flow Rate 0 Narrative Exam Narrative: Obese female lying in bed in no acute distress but does appear mildly uncomfortable. Alert oriented x3 She has had no documented fevers since admission. No significant tachycardia. Blood pressure is intermittently hypertensive but otherwise normal. Nasogastric tube is in place but the tube is somewhat small. There is bilious fluid in the canister. Blue port was actually capped at the time of my visit. I uncapped port and flush the catheter accordingly with return of approximately 200 cc more of rebecca bilious fluid. There is now a total of 300-400 cc of bilious fluid in the canister. Nasogastric tube was functioning well afterwards on intermittent suction. Sclera nonicteric Chest clear to auscultation bilaterally without crackles or wheezes. Regular rate and rhythm Abdomen is obese but soft and not significantly distended. She has a well-healed right lower quadrant scar and Pfannenstiel scar without obvious hernias. She is tender in the epigastric region to just above the umbilicus without guarding or rebound. I appreciate no hernias or masses. Dorsal pedis pulses are palpable bilaterally. Extremities otherwise show no clubbing, cyanosis, or edema Objective Labs Result Diagrams: 04/24/18 05:17 04/24/18 05:17 Labs: Laboratory Results - last 24 hr 04/24/18 04/24/18 05:17 05:17 WBC 6.2 RBC 3.87 L Hgb 12.4 Hct 35.0 L MCV 90.5 MCH 32.0 MCHC 35.3 RDW 12.6 Plt Count 237 Neut % (Auto) 62.5 Lymph % (Auto) 25.6 [place] % (Auto) 9.1 Eos % (Auto) 2.1 Baso % (Auto) 0.7 Neut # (Auto) 3900 Sodium 142 Potassium 3.5 Chloride 105 Carbon Dioxide 28 BUN 7 Creatinine 0.60 Estimated GFR > 60.0 BUN/Creatinine Ratio 11.7 Glucose 115 H Calcium 8.3 L I have personally reviewed her CT scan of the abdomen and pelvis done at admission. She has what appears to be a transition point in the small bowel in the lower abdomen with proximally dilated small bowel. Few air-fluid levels. There is some air and stool in the colon. No free air in the abdomen. No significant free fluid. No bowel wall thickening or inflammatory changes. Assessment & Plan Plan: Assessment/Plan Narrative: 53-year-old female with partial small bowel obstruction. She has no evidence of mesenteric ischemia. However, she has been essentially symptomatic for 10 or 11 days now with a 3 day hospital course currently. Nevertheless she is not had full non operative management by nasogastric tube decompression and bowel rest. I therefore recommend that we maintain NPO except ice chips diet. Continue nasogastric tube to low intermittent wall suction as above. Will obtain a small-bowel follow-through with Gastrografin tomorrow for diagnostic and potential therapeutic purposes. Repeat laboratory studies tomorrow. However, if the patient does not improve or certainly if she worsens at any time that she will require laparotomy with potential lysis of adhesions and bowel obstruction. I discussed this with her in some detail this evening including the potential risks of major abdominal surgery. All questions were answered to her satisfaction, and she voiced understanding. We will continue to follow her closely. Above plan was reviewed with the attending nurse. Orders were written.
--- NOTE | 2018-04-24 22:33 | PC.NURSE ---
Patient AO, and complaining of nausea, abdominal pain, and a headache throughout shift. Zofran administered last at 1900 for nausea and assists for a couple hours before pt starts c/o nausea again. Dilaudid 2mg IV administered last at 1900 for 8/10 pain, then decreases to about a 2-5:10. Potassium is trending down so Dr. South gave me a telephone order to change fluids to LR with KCl at 125/hr (still waiting for the bag to replace current fluid of D5NS). NG tube set to low-intermittent. Not producing a lot, but Dr. Levy stopped by for a consultation and was able to get it to start draining better; not as leaky as at start of shift. Re-tapped NG to nose due to diaphoresis and nose discharge. pt got up once to BSC and voided 400, denied pains and dizziness.
[2018-04-24] MEDS: POTASSIUM CHLORIDE 40 MEQ in LACTATED RINGERS 1,000 ML 125 MEQ IV (23:08)
[2018-04-25] VITALS (22 sets, daily range): BP systolic 91–160; BP diastolic 41–95; PULSE 78–120; RESP 10–94; TEMP 36.7–37.6; O2SAT 14–110; BMI 47.7
[2018-04-25] MEDS: ONDANSETRON 4 MG/2 ML INJ IV ×4 (04:57→18:57)
[2018-04-25] MEDS: HYDROMORPHONE 2 MG INJ IV ×3 (04:57→14:11)
[2018-04-25] MEDS: BENZOCAINE/MENTHOL 1 LOZ PKT 1 EACH PO ×2 (05:25→20:56)
[2018-04-25 05:52] LABS: Add Manual Diff / Slide Review NO; Basophils Percent Auto 0.8 % (0-2); Blood Urea Nitrogen 6 mg/dL (7-17); Calcium 8.7 mg/dL (8.4-10.2); Carbon Dioxide 28 mmol/L (22-32); Chloride 102 mmol/L (98-107); Eosinophils Percent Auto 1.4 % (2-4); Estimated Glomerular Filt Rate > 60.0 mL/min (>60); Glucose 107 mg/dL (70-100); HEMOLYSIS < 15 (0-50); Hemoglobin 13.1 g/dL (12.0-16.0); Lymphocytes Percent Auto 16.6 % (25-40); Mean Corpuscular HGB Conc 35.3 % (30-36); Mean Corpuscular Hemoglobin 31.8 PG (26-34); Monocytes Percent Auto 8.5 % (3-14); Neutrophils Absolute Auto 6600 /uL (3000-5900); Neutrophils Percent Auto 72.7 % (50-75); Platelet Count 235 X10^3/uL (150-400); Potassium 3.8 mmol/L (3.4-5.1); Red Blood Cell Count 4.11 X10^6/uL (4.0-5.2); Red Cell Distribution Width 12.6 % (11.6-14.8); Sodium 139 mmol/L (137-145); White Blood Cell Count 9.1 X10^3/uL (4.5-11.0)
--- NOTE | 2018-04-25 06:35 | PC.NURSE ---
Called, via [employer], during lunch break that NGT was pulled and making a gurgling sound. Upon entering room pt is sitting at the bedside very visibly upset crying and holding NGT, stating it doesn't feel right. No drainage via suction, air injection was not heard in abd. Pt c/o pain to right nare and throat, began sobbing when told we would need to adjust NGT to correct placement. Applied lubricant to pt's nare around tube, tube advanced w/ pt's participation. STAT CXR showed that NGT was not down far enough. At that point pt began frantically sobbing w/ high anxiety stating take it out, take it out, attempt to discuss pros of NGT in place, but pt ultimately refusing readjustment and adamantly requesting removal. NGT removed. Sometime during episode IV infiltrated and site to right forearm compromised. New IV started in left hand and Zofran, Dilaudid given via IVP. Pt calmed shortly after and able to sleep. MD notified of NGT removal and refusal for restarting at this time. MD will assess in AM.
[2018-04-25] MEDS: PANTOPRAZOLE 40 MG VIAL IV (08:04)
[2018-04-25] MEDS: POTASSIUM CHLORIDE 40 MEQ in LACTATED RINGERS 1,000 ML 125 MEQ IV (08:16)
--- NOTE | 2018-04-25 09:03 | P.PN_ITS ---
Subjective Date Patient Seen: 04/25/18 Time Patient Seen: 08:58 Interval history: Patient continues to complain of nausea and intermittent vomiting. Her nausea is not controlled with IV medications. Unfortunately her nasogastric tube was inadvertently removed and could not be successfully replaced earlier this morning. She is currently refusing any further attempts at such. Continues to have mid abdominal intermittent crampy and sometimes sharp pain. She passed a minimal amount of flatus on 1 or 2 occasions yesterday but has not had a bowel movement in 7 days. Continues to feel subjectively distended. Exam Vital Signs (past 8 hours): - 04/25/18 04:30 04/25/18 07:25 04/25/18 07:51 Temperature 98.7 F 98.9 F Pulse Rate 89 78 Respiratory Rate 18 18 Blood Pressure 130/52 L 137/75 Pulse Oximetry 93 94 94 Oxygen Delivery Method Room Air Oxygen Flow Rate 0 Narrative Exam Narrative: Patient seen and examined with the assistance of the attending nurse Patient lying in bed and appears acutely ill. She is in some mild obvious discomfort. No acute distress however. She remains afebrile with no tachycardia throughout the night Nasogastric tube was draining thick bilious fluid prior to its removal this morning Urine output remains adequate Regular rate and rhythm without wheezes Abdomen is obese but not tympanitic. She is minimally distended. However, she is tender in the epigastric region as per my examination last evening. No guarding or rebound but no improvement compared to yesterday. No masses. Extremities show no clubbing, cyanosis, or edema Objective Labs Result Diagrams: 04/25/18 05:32 04/25/18 05:32 Labs: Laboratory Results - last 24 hr 04/25/18 04/25/18 05:32 05:32 WBC 9.1 RBC 4.11 Hgb 13.1 Hct 37.0 MCV 90.0 MCH 31.8 MCHC 35.3 RDW 12.6 Plt Count 235 Neut % (Auto) 72.7 Lymph % (Auto) 16.6 L [place] % (Auto) 8.5 Eos % (Auto) 1.4 L Baso % (Auto) 0.8 Neut # (Auto) 6600 H Sodium 139 Potassium 3.8 Chloride 102 Carbon Dioxide 28 BUN 6 L Creatinine 0.50 L Estimated GFR > 60.0 BUN/Creatinine Ratio 12.0 Glucose 107 H Calcium 8.7 Assessment & Plan Plan: Assessment/Plan Narrative: 53-year-old female with partial small bowel obstruction that has essentially been present for approximately 12 days now. She has not improved since admission 4 days ago. Currently she is refusing nasogastric tube decompression despite my strong recommendation to the contrary. Without the NG tube she simply will not tolerate oral Gastrografin for a small-bowel follow-through study. Furthermore, she has not improved since hospitalization and she has been symptomatic for a significant amount of time. Fortunately I do not appreciate any obvious signs or symptoms of compromised bowel. However, at this point I believe she would warrant laparotomy with lysis of adhesions and possible bowel resection under the circumstances. I have informed her that we will place a nasogastric tube prior to the induction of general anesthesia in an attempt to hopefully minimize risk of aspiration. We can do this in the preoperative area perhaps with some anesthesia assistance. I have discussed this with the attending staff. Patient was agreeable to that scenario. I discussed the technical details of the operation including a possible epidural catheter for postoperative analgesia. She understands that an epidural catheter at this institution would mandate ICU status per hospital policy. Anticipated hospitalization and postoperative recovery were discussed. Technical details of the operation were explained. Risks, benefits, alternatives were discussed. Risks including but not limited to anesthesia, bleeding, need for transfusion , infection, pain, poor wound healing, scar, cosmetic deformity, recurrent obstruction, anastomotic leak, need for ostomy, need for drains, gastric injury , liver injury, vascular injury, ureter injury, colon injury, bladder injury, and need for further major abdominal surgery were all discussed in detail. I also explained her that she will have a Chaparro catheter in place following the procedure. All questions were answered to her satisfaction, and she voiced understanding. Consent was placed on the chart. She was agreeable to the plan and we will proceed as above. Orders were written.
--- NOTE | 2018-04-25 13:00 | P.PN_ITS ---
Subjective Date Patient Seen: 04/25/18 Interval history: Appreciate Dr. Levy's evaluation. Patient still with Nausea and abdominal bloating. Her NG tube came out last night and she refused to have it replaced. She is not making any progress despite conservative treatment. The patient is scheduled for definitive surgical treatment this afternoon Exam Vital Signs (past 8 hours): - 04/25/18 07:25 04/25/18 07:51 04/25/18 12:00 Temperature 98.9 F 98.6 F Pulse Rate 78 82 Respiratory Rate 18 20 Blood Pressure 137/75 116/60 Pulse Oximetry 94 94 93 Oxygen Delivery Method Room Air Oxygen Flow Rate 0 Narrative Exam Narrative: Pleasant female uncomfortable Lungs: Clear to auscultation CV: RRR nl Sl S2 Abd: mildly bloated, mild tenderness, no rebound, no rigidity no palpable masses Ext: no edema Objective Labs Result Diagrams: 04/25/18 05:32 04/25/18 05:32 Labs: Laboratory Results - last 24 hr 04/25/18 04/25/18 04/25/18 05:32 05:32 09:20 WBC 9.1 RBC 4.11 Hgb 13.1 Hct 37.0 MCV 90.0 MCH 31.8 MCHC 35.3 RDW 12.6 Plt Count 235 Neut % (Auto) 72.7 Lymph % (Auto) 16.6 L [place] % (Auto) 8.5 Eos % (Auto) 1.4 L Baso % (Auto) 0.8 Neut # (Auto) 6600 H Sodium 139 Potassium 3.8 Chloride 102 Carbon Dioxide 28 BUN 6 L Creatinine 0.50 L Estimated GFR > 60.0 BUN/Creatinine Ratio 12.0 Glucose 107 H Calcium 8.7 Blood Type AB Positive Antibody Screen Negative Assessment & Plan (1) Morbid obesity: Current visit: Yes Status: Acute (2) Vomiting: Problem details: Despite NG tube still with dry heaves Qualifiers: Nausea presence: with nausea Vomiting Intractability: non-intractable Vomiting type: unspecified Qualified Code(s): R11.2 - Nausea with vomiting, unspecified Current visit: No Status: Acute (3) Abdominal pain: Problem details: Secondary to Partial Small bowel obstruction Qualifiers: Abdominal location: upper abdomen, unspecified Qualified Code(s): R10.10 - Upper abdominal pain, unspecified Current visit: No Status: Acute (4) Small bowel obstruction: Problem details: Patient is scheduled for surgical repair today Current visit: Yes Status: Acute
--- NOTE | 2018-04-25 13:14 | CM.DPC ---
DCP/cont Patient to have exploratory laparotomy today around 1600. Plan: CM team to reassess discharge after surgery.
[2018-04-25] MEDS: MIDAZOLAM 2 MG/2 ML VIAL IV (15:20)
--- NOTE | 2018-04-25 15:22 | PC.NURSE ---
Pt down to surgery earlier about 1345. Given zofran and dilaudid iv prior.
[2018-04-25] MEDS: CEFOTETAN 2 GM/50 ML PIGGYBACK IV (15:32)
[2018-04-25] MEDS: LACTATED RINGERS 1,000 ML 100 ML IV ×3 (15:38→22:21)
--- NOTE | 2018-04-25 15:39 | SUR.HOLD ---
laTE ENTRY: PT BROUGHT TO ROOM 5, MEDICATED WITH VERSED AFTER ALL SPOKE WITH PT, DR SEARS PLACED NGT TO L NARE WITHOUT DIFFICULTY, VERIFIED BY AUSCULTATION AND LARGE AMOUNT OF GREEN THICK SECRETIONS BACK PER WALL SUCTION. PT THEN BROUGHT TO OR IN STABLE CONDITION.
--- NOTE | 2018-04-25 16:15 | SUR.OPER ---
Supine on padded OR bed, head on pillow, arms secured on padded arm boards at <90 degrees abduction, legs uncrossed, pillow under knees, safety belt at thigh, tape over blanket over lower legs. Gel pad under heels and under elbows.
--- NOTE | 2018-04-25 16:26 | PM.PROC.1 ---
Procedures Date/Time Date of procedure: 04/25/18 Time of procedure: 15:37 Nerve Block Time out performed: Yes Local anesthetic used: lidocaine 1% Location of anesthetic used: T10-11 Nerve blocks: other (thoracic epidural for Postoperative Pain Management) Patient tolerated procedure: well and no complications Complications: none Additional comments: Thoracic epidural (T10-11) for post op pain management for laparotomy as discussed with surgeon. Discussed with patient risks, benefits, and alternatives to thoracic epidural for post op pain management. Pt was brought to the OR and seated on the OR table. Standard ASA monitors attached. 1mg versed. Sterile prep and drape in the standard fashion. Landmarks identified and vertebrae palpated at approximately T10-11. Lidocaine 1% skin wheal and 25g finder needle advanced to lamina via paramedian approach. Needle advanced to bone, then walked superiorly and medially. Hustead needle inserted and advanced using the same approach. Clean MARTHA to saline at 7cm. No paresthesias. Epidural catheter advanced easily with transient paresthesia to R hip and R foot. Catheter secured at 13cm/6cm in epidural space. Negative aspiration for heme or CSF. Test dose of 3mL 1.5% lidocaine with epinephrine was negative. Tegaderm was placed and catheter secured. Pt tolerated well.
--- NOTE | 2018-04-25 18:33 | PM.OP.1 ---
Operative Date/Time/Diagnoses Date of procedure: 04/25/18 Time of procedure: 18:34 Pre-op diagnosis: Small-bowel obstruction Post-op diagnosis: other (Small-bowel obstruction secondary to dense interloop adhesions) Procedure & Clinicians Procedure: Exploratory laparotomy with extensive lysis of adhesions Same procedure as scheduled: Yes Indications: 53-year-old obese female who presented with small-bowel obstruction several days ago. She did not respond to non operative management. She continued to have significant bilious output from her nasogastric tube along with nausea. She did not have return of bowel function. She was therefore recommended to undergo laparotomy with lysis of adhesions and potential bowel resection. Surgeon: Tate Levy Primer Waterproofing Machine Adjuster: Kary Mcgowan Click Yes if Unassisted: No Anesthesia Type: General Operative Notes Findings: 1. Dense adhesions in the right lower quadrant and pelvis involving omentum and multiple loops of small bowel 2. Dense interloop adhesions throughout the entire jejunum and proximal ileum to the level of the mid ileum without evidence of mesenteric ischemia or necrotic intestine 3. No evidence of any masses or free fluid in the abdomen 4. No evidence of purulent material of any kind 5. Several small serosal tears along the jejunum repaired with interrupted 3 0 silk seromuscular suture Closure Type: primary Specimen(s): none sent Implants & Drains: None Applied: catheter (Chaparro catheter placed to drain urinary bladder after induction of anesthesia left to gravity) Estimated Blood Loss (mL): 200 Blood products transfused: none Procedure in detail: After obtaining informed consent the patient was brought to the operating room. Nasogastric tube had actually been inserted by me personally in the preoperative area with return of bilious fluid. Position in the stomach was verified clinically on examination. She tolerated NG tube insertion well. After being brought to the operating Room epidural catheter was placed per anesthesiology. Please see their records for details. Patient was then placed supine on the table and satisfactory induction of general anesthesia ensued. Chaparro catheter was placed to decompress the urinary bladder. Abdomen was prepped and draped in usual sterile fashion. SCOAP time out was performed per standard protocol. Vertical midline incision was created around the umbilicus for short distance with 10 scalpel blade. Bovie was used to achieve hemostasis and carried the dissection down to the rectus fascia which was divided in the midline. Abdomen was then visually and manually explored. Kenny clamps were applied to the fascia and meticulous sharp dissection using Metzenbaum scissors was employed to liberate the small bowel from the anterior abdominal wall to which the bowel was densely adherent at the inferior aspect of the wound. Great care was taken to avoid enterotomies. After extensive meticulous blunt and copious sharp dissection with Metzenbaum scissors the entire length of the small bowel from the ligament of Treitz to the ileocecal valve were liberated. Several small serosal tears were repaired as above with 3 0 silk seromuscular suture. No obvious enterotomies were created and the bowel was meticulously examined several times along its entire length. Bowel was completely viable. Obstruction had been relieved in the midst of significant interloop adhesions. Bowel was replaced into its usual anatomic position and the abdomen was irrigated with copious amounts of warm sterile saline solution. Irrigant was suctioned from the abdomen and noted to be clear. Hemostasis was verified. Omentum was placed over the bowel after verifying good position of the nasogastric tube in the stomach by palpation. Fascia was then closed with 2 individual running 1 Prolene sutures tied in the midline. Wound was irrigated and hemostasis noted. Several interrupted 3 0 Vicryl sutures were placed in the subcutaneous tissue for approximation. Skin was closed with boyd. Sterile dressing was applied. Anesthesia was reversed the patient extubated in the operating room. She was taken recovery in stable condition. Complications: none Condition: stable Disposition: PACU Plan for aftercare: 1. Per hospital policy admit to ICU for ongoing convalescence and epidural pain management
[2018-04-25] MEDS: FENT 2MCG/BUPIV 0.125% EPI 2 MCG/100 ML PLAST..BAG 5 MCG EPIDURAL (19:13)
--- NOTE | 2018-04-25 20:12 | SUR.PHASEI ---
1912 late entry - Epidural infusion initiated by Dr. May
--- NOTE | 2018-04-25 20:33 | SUR.PHASEI ---
182 late entry (unable to edit charting) Patient arousing spontaneously; oral airway dc'd. resp unlabored. Patient oriented, denies pain, nausea. 1831 late entry continued: O2 reduced to 2LNP. Abdominal soft, Dressing remains CDI; binder remains in place. Epidural catheter taped secure and capped. SCD's on, NG to LIS 1844 Stable, continues to deny pain/nausea 1856 C/O nausea; RX given. Patient turned to right side with minimal assist. Positioned for comfort. Tiffanie hugger place for C/O being cold. 1909 Nausea improving, no emesis. Dressing remails CDI. Patient oriented, talking. 1919 Report called to ICU, preparing to transfer. Denies pain/nausea. Stable, oriented. Pleasant and cooperative.
--- NOTE | 2018-04-25 20:44 | SUR.PHASEI ---
1922 To ICU; Bed locked, remaining elevated for staff to work on patient. NG to LIS, Questions answered. Chaparro remains secured at bedside. Patient stable, awake, talking.
[2018-04-25] MEDS: LORazepam 2 MG/ML SYRINGE 1 MG IV (22:57)
[2018-04-26] VITALS: BP 142/90; PULSE 104; RESP 19; TEMP 37.4; O2SAT 93
--- NOTE | 2018-04-26 00:30 | PC.NURSE ---
zhou marion Received pt from PACU awake, alert, moving self in bed. Pt has dulled sensation to abd, to just above umbilicus. Pt c/o NGT being painful, wants it out RUSTAM.NGT connected to LIS with small amount of green effluent. Pt reported 4/[address] May and received order to titrate epidural as high as 10 ml/hr. Increased to 7 ml/hr. Went to check on pt later and she was gripping side rails, hyperventilating, saying It has to come out, I can't do it anymore, take the tube out. This is pt's 3rd NGT this admission. Per Dr. Levy, post op ileus is expected. Pt just repeating phrases, shaking, restless. Called Dr. Mcgowan and received orders for IV Ativan including a now dose. Gave the one mg of ativan and pt relaxed and fell asleep, but O2 sats down to 84% with RR 18. O2 added at 2 L/min.
[2018-04-26 01:00] VITALS: BP 148/89; PULSE 94; RESP 18; O2SAT 92
[2018-04-26 04:00] VITALS: BP 143/82; PULSE 81; RESP 17; TEMP 36.6; O2SAT 93
[2018-04-26 05:12] LABS: Add Manual Diff / Slide Review NO; Basophils Percent Auto 0.2 % (0-2); Hemoglobin 12.9 g/dL (12.0-16.0); Lymphocytes Percent Auto 6.3 % (25-40); Mean Corpuscular HGB Conc 34.9 % (30-36); Mean Corpuscular Hemoglobin 31.3 PG (26-34); Mean Corpuscular Volume 89.8 fL (80-100); Monocytes Percent Auto 6.3 % (3-14); Neutrophils Absolute Auto 10500 /uL (3000-5900); Neutrophils Percent Auto 87.2 % (50-75); Platelet Count 219 X10^3/uL (150-400); Red Blood Cell Count 4.12 X10^6/uL (4.0-5.2); Red Cell Distribution Width 12.9 % (11.6-14.8)
[2018-04-26 05:17] LABS: BUN Creatinine Ratio 11.7 (6-22); Blood Urea Nitrogen 7 mg/dL (7-17); Calcium 8.6 mg/dL (8.4-10.2); Carbon Dioxide 29 mmol/L (22-32); Chloride 100 mmol/L (98-107); Estimated Glomerular Filt Rate > 60.0 mL/min (>60); Glucose 107 mg/dL (70-100); HEMOLYSIS < 15 (0-50); Sodium 138 mmol/L (137-145)
--- NOTE | 2018-04-26 06:45 | PC.NURSE ---
After receiving IV Ativan from evening RN, patient was able to sleep through night, NGT patent to LIS with 50ml bile fluid out. SR, RR 15, SpO2 98% on 2L, BP 150s/70s, epidural with Fentanyl/bupivicaine infusing at 7ml/hr, binder in place around abdomen. HOB elevated, SCDs on.
[2018-04-26 07:35] VITALS: BP 137/87; PULSE 82; RESP 16; TEMP 37.2; O2SAT 97
[2018-04-26] MEDS: FENT 2MCG/BUPIV 0.125% EPI 2 MCG/100 ML PLAST..BAG 7 MCG EPIDURAL ×2 (07:52→21:08)
[2018-04-26] MEDS: LACTATED RINGERS 1,000 ML 100 ML IV ×2 (08:54→19:22)
[2018-04-26] MEDS: PANTOPRAZOLE 40 MG VIAL IV (09:01)
[2018-04-26] MEDS: ENOXAPARIN 40 MG/0.4 ML SYRINGE SUBCUT (09:01)
[2018-04-26] MEDS: LORazepam 2 MG/ML SYRINGE 1 MG IV ×3 (10:20→19:18)
[2018-04-26] MEDS: BENZOCAINE/MENTHOL 1 LOZ PKT 1 EACH PO (10:21)
--- NOTE | 2018-04-26 11:16 | PT.IIE ---
Addendum entered and electronically signed by Marisela Lazar PT 04/26/18 17:00: This is to certify that I have reviewed this documentation and POC. Original Note: Current Diagnoses Morbid (severe) obesity due to excess calories (04/21/18) Anxiety disorder, unspecified (04/21/18) Partial intestinal obstruction, unspecified as to cause (04/21/18) Unspecified intestinal obstruction, unspecified as to partial versus complete obstruction (04/21/18) Upper abdominal pain, unspecified (04/21/18) Nausea with vomiting, unspecified (04/21/18) Surgery Performed Operation Date: 04/25/18 16:00 Actual Procedures p Exploratory Laparotomy, small bowel obstruction, lysis of adhesions - Tate Levy MD Surgical History (Last Reviewed 04/24/18 @ 20:55 by Tate Levy MD) Status post appendectomy (Resolved) Status post hysterectomy (Resolved) Medical History (Last Reviewed 04/24/18 @ 20:55 by Tate Levy MD) Morbid obesity with BMI of 45.0-49.9, adult (Acute) HTN (hypertension) (Chronic) Migraine (Chronic) Physical Therapy Inpatient Evaluation/Re-Eval M1 PT/OT-IP Prior Functional Status Start: 04/26/18 11:16 Freq: NEEDED Status: Active Protocol: Document 04/26/18 11:15 (Rec: 04/26/18 12:24 [email or web address]) Medical Review Prior Functional Status Medical History Reviewed Yes Communication No deficits noted Mobility and Gait Community ambulator using no AD. Independent in all self care and driving. Social History Household Members significant other family Living Arrangements House Number of Floors (Floors) Two Floors Number of Stairs To Enter/Railing? 3 steps R rail to enter. 13 steps to upper floor where her bedroom is. She is open to rearanging to live entirely on 1st floor if needed. Home Environment Standard Height Toilet Tub/Shower Home Equipment Straight Cane Crutches Tub Transfer Hand Clipper Held Shower Additional Social History Comment Primary caregiver for 2 grandchildren (live with her) ages 7 and 9. Lives with S.O. (Hunter) who can be avaliable 02/01 to assist if needed. M2 PT-IP Current Condition Start: 04/26/18 11:16 Freq: NEEDED Status: Active Protocol: Document 04/26/18 11:15 (Rec: 04/26/18 12:24 [email or web address]) Physical Therapy Current Condition Current Condition Evaluation Date 04/26/18 Treatment Diagnosis small bowel obstruction; difficulty walking Onset Date 04/21/18 Precautions Abdominal Surgery Precautions Log Roll Lifting Restrictions Gait Belt above Incisional Area M3 PT-IP Subjective Start: 04/26/18 11:16 Freq: NEEDED Status: Active Protocol: Document 04/26/18 11:15 (Rec: 04/26/18 12:24 [email or web address]) Subjective Physical Therapy Visit Type Type Initial Evaluation Visit Start Time 11:15 Visit Stop Time 11:48 Total Visit Minutes 33 Number of BRAND MARKETING INTERN Visits 0 Physical Therapy Visit Comments Patient Comments Pt agreeable to mobilize with PT. Patient Goals Plans to d/c home with S.O. who can assist 02/01. Therapy Pain Assessment Pain When Pain Assessed During Mobility Pain Present Pain Present Pain Reported Location Throat Scale Used 8/10 pain in back of throat. Pain Management Techniques Distraction Modification of Treatment Timing of Activity with Medications upper abd Scale Used 7/10 decreased to 6/10 after ambulation. Pain Management Techniques Distraction Modification of Treatment Re-positioning Timing of Activity with Medications M4 PT-IP Mobility and Gait Start: 04/26/18 11:16 Freq: NEEDED Status: Active Protocol: Document 04/26/18 11:15 (Rec: 04/26/18 12:24 [email or web address]) PT-Bed Mobility Assessment Rolling Type of Rolling Log Rolling Roll to Left Level of Assist Standby Assistance Sit to Supine Sit to Supine Minimal Assistance Scooting Scooting to Edge of Bed Standby Assistance Scooting Up and Down in Bed Standby Assistance PT-Transfer Assessment Sit to and From Stand Sit to and from Stand Contact Guard Assistance Use of Upper Extremities Equipment Transfer Assistive Device Gait Belt Front Wheeled Walker Orthotic/Prosthetic Devices or Brace: No Transfers Transfer Destination Bed Transfer Technique Ambulates between surfaces Comments Mobility Comments Pt found seated in recliner. Resting/seated BP 134/86 HR 103. Sit <> stand is CGA with use of BUE. Standing BP 141/ 90 HR 115. Pt ambulates prior to bed mob (see below). Sit > side lying is minAx1 to elevate legs with min cues. Log roll L to supine is SBA, min cues. Gait Assessment Gait Gait Assistance Required: Contact Guard Assist Distance (Feet) 70 Able to Maintain Weight Bearing Status Yes During Gait Assistive Devices Assistive Device Gait Belt Front Wheeled Walker Orthotic/Prosthetic Devices or Brace: No Gait Deviations General Gait Pattern Decreased Stride Length Decreased Feet Clearance Factors Limiting Gait Function Factors Limiting Gait Function Decreased Activity Tolerance Decreased Strength Limited Range of Motion Pain Poor Balance Poor Safety Awareness Comments Gait Comments Pt ambulates 70 ft with fww CGA. Pt demonstrating very slow, guarded walking with low clearance steps and decreased stride length. Post ambulation, supine BP 138/77 HR 105. PT-Balance Assessment Sitting Balance and Reactions Static Sitting Balance Ability Good Dynamic Sitting Balance Ability Good Standing Balance and Reactions Static Standing Balance Ability Good Dynamic Standing Balance Ability Fair Device Used fww M5 PT-IP Objective Assessments Start: 04/26/18 11:16 Freq: NEEDED Status: Active Protocol: Document 04/26/18 11:15 (Rec: 04/26/18 12:24 [email or web address]) Orientation Orientation/Cognition Level of Alertness Alert Orientation Name Birthday Place Situation Language Function Ability No Deficits Noted Safety Awareness Decreased Safety Awareness Comments Pt slow to respond and appearing sleepy. She is cooperative however, and does respond appropriately to cues and directions. Strength Lower Extremity Strength Assessment Bilaterally Impaired Comments Strength Comments BLE grossly 4/5 M6 PT-IP Treatment Start: 04/26/18 11:16 Freq: NEEDED Status: Active Protocol: Document 04/26/18 11:15 (Rec: 04/26/18 12:24 [email or web address]) Physical Therapy Treatment Education Education Provided Precautions Safety M7 PT-IP Assessment and Plan Start: 04/26/18 11:16 Freq: NEEDED Status: Active Protocol: Document 04/26/18 11:15 (Rec: 04/26/18 12:24 [email or web address]) PT Summary Assessment and Plan Potential Rehabilitation Potential Good Status of Condition at Evaluation Stable Summary Impairments Pain ROM Strength Balance Bed Mobility Transfers Gait Activity Tolerance Progress Towards Goals Slow Progress due to Pain Slow Progress due to Medical Issues Slow Progress due to Activity Tolerance Assessment Summary Pt s/p small bowel resection with difficulty walking and decreased activity tolerances. She was able to ambulate 70 ft with fww CGA and needed Kristan for bed mobility. Pt needs to progress activitiy tolerances, ambulation and complete stair climbing with PT prior to d/c. Once pt is medically stable, likely d/c to home with 24/7 assist of S. O. Goals Bed Mobility Goal Standby Assistance Transfer Goal Standby Assistance Front Wheeled Walker Gait Goal Standby Assistance Front Wheel Walker Gait Distance 150 Other Goals Ambulate 150 ft SBA with least restrictive or no AD. Up/down 3 steps R rail CGA as needed for safe access to home . Up/down 12 steps R rail CGA as needed/desired by pt to access 2nd floor (her bedroom is there, but she is willing to arrange to sleep on 1st floor) Days to Meet Goals 5 Frequency of Treatment Frequency Of Treatment Once a Day Treatment Plan Physical Therapy Treatment Plan Bed Mobility Training Transfer Training Gait Training Therapeutic Exercise Balance Retraining Post Op Education Discharge Planning Hot or Cold Pack Neuromuscular Re-ed Coordination Retraining Manual Therapy Other Recommendations and Next Treatment Progress ambulation with least Focus restrictive device (pt using fww this session, but likely to progress to spc or no AD) Stair climbing as appropriate Recommendations To Nursing Amount of Assist Needed 1 Person Assist Discharge Recommendations PT Discharge Recommendations Home with 24/7 Assist
--- NOTE | 2018-04-26 11:17 | P.PN_ITS ---
Subjective Date Patient Seen: 04/26/18 Interval history: Events reviewed. Patient seen and examined. She continues to complain about anxiety especially related to the NG tube. She reports her pain is 7/10 but just got back in bed after a walk. She has no flatus, she denies nausea. Plans of care discussed with patient Exam Vital Signs (past 8 hours): - 04/26/18 04:00 04/26/18 07:35 Temperature 97.9 F 99 F Pulse Rate 81 82 Respiratory Rate 17 16 Blood Pressure 143/82 H 137/87 Pulse Oximetry 93 97 Oxygen Delivery Method Room Air Oxygen Flow Rate 2 Narrative Exam Narrative: Ill appearing female Lungs: clear to auscultation CV: RRR nl Sl S2 2/6 SHAMA ABd: distended, hypoactive bowel tones, mildly tender to palpation Ext: no edema Objective Labs Result Diagrams: 04/26/18 04:36 04/26/18 04:36 Labs: Laboratory Results - last 24 hr 04/25/18 04/26/18 04/26/18 19:40 04:36 04:36 WBC 12.0 H RBC 4.12 Hgb 12.9 Hct 37.0 MCV 89.8 MCH 31.3 MCHC 34.9 RDW 12.9 Plt Count 219 Neut % (Auto) 87.2 H Lymph % (Auto) 6.3 L [place] % (Auto) 6.3 Eos % (Auto) 0.0 L Baso % (Auto) 0.2 Neut # (Auto) 30226 H Sodium 138 Potassium 4.0 Chloride 100 Carbon Dioxide 29 BUN 7 Creatinine 0.60 Estimated GFR > 60.0 BUN/Creatinine Ratio 11.7 Glucose 107 H Calcium 8.6 Nasal Screen MRSA (PCR) Negative for mrsa Assessment & Plan (1) Small bowel obstruction: Problem details: Patient is POD#1 ANA ROSA. She is having some pain, and is fairly anxious about the NG tube Current visit: Yes Status: Acute (2) Abdominal pain: Problem details: Secondary to Partial Small bowel obstruction, s/p ANA ROSA Qualifiers: Abdominal location: upper abdomen, unspecified Qualified Code(s): R10.10 - Upper abdominal pain, unspecified Current visit: No Status: Acute (3) Morbid obesity: Current visit: Yes Status: Acute (4) Anxiety: Problem details: Ativan as needed Current visit: Yes Status: Acute Plan: Assessment/Plan Narrative: Continue postoperative plan per Dr. Levy
[2018-04-26 11:55] VITALS: BP 138/77; PULSE 84; RESP 18; TEMP 36.6; O2SAT 94
[2018-04-26] MEDS: HYDROMORPHONE PCA 6 MG/30 ML PCA.VIAL IV (14:12)
--- NOTE | 2018-04-26 14:38 | PC.NURSE ---
Day Shift Note Pt up to chair this AM and walked twice this shift in halls. Initially reported dizziness upon sitting up but this resolved within seconds. Reported pain 7/10 to abdomen - encouraged and instructed on RESIDENT IN DIAGNOSTIC RADIOLOGY use and pt now denies pain. Epidural infusing at 7 ml/hr, decreased sensation reported around incision site. Brest binder in place to abdomen, dressing C/D/I. RA with sats 94%. Reports feeling panicky and very anxious concerning NG tube - medicated with Ativan with good effect reported by pt. Call light within reach, using appropriately to make needs known.
[2018-04-26 14:41] VITALS: BMI 47.7
--- NOTE | 2018-04-26 15:42 | P.PN_ITS ---
Subjective Interval history: POD#1 for ex-lap with ANA ORSA. Thoracic epidural in place for post-op pain management. No narcotics needed overnight, HOME CHILD CARE PROVIDER ordered but not initiated until today. 2mg earlier in the day, 1.5mg this evening so far. Afebrile, VSS. Exam Vital Signs (past 8 hours): - 04/26/18 11:55 Temperature 97.8 F Pulse Rate 84 Respiratory Rate 18 Blood Pressure 138/77 Pulse Oximetry 94 Oxygen Delivery Method Room Air Oxygen Flow Rate 2 Narrative Exam Narrative: epidural site and bandage c/d/i. No erythema or TTP. Effective block to cold sensation T10-12, RIGHT sided only. LEFT side unaffected. Objective Labs Result Diagrams: 04/26/18 04:36 04/26/18 04:36 Labs: Laboratory Results - last 24 hr 04/25/18 04/26/18 04/26/18 19:40 04:36 04:36 WBC 12.0 H RBC 4.12 Hgb 12.9 Hct 37.0 MCV 89.8 MCH 31.3 MCHC 34.9 RDW 12.9 Plt Count 219 Neut % (Auto) 87.2 H Lymph % (Auto) 6.3 L [place] % (Auto) 6.3 Eos % (Auto) 0.0 L Baso % (Auto) 0.2 Neut # (Auto) 18214 H Sodium 138 Potassium 4.0 Chloride 100 Carbon Dioxide 29 BUN 7 Creatinine 0.60 Estimated GFR > 60.0 BUN/Creatinine Ratio 11.7 Glucose 107 H Calcium 8.6 Nasal Screen MRSA (PCR) Negative for mrsa Assessment & Plan Post-op Postoperative Procedures Operation Date: 04/25/18 16:00 Actual Procedures Side Surgeon p Exploratory Laparotomy, small bowel obstruction, lysis of adhesions Tate Levy MD Postoperative day: 1 Postoperative status narrative: RIGHT sided block from thoracic epidural, appropriate level. Pt now using dilaudid HOME CHILD CARE PROVIDER and c/o anxiety, largely appears to be associated with NG tube. Relief from anxiety with prn benzo. Postoperative plan narrative: Plan to continue epidural infusion at current rate 7mL/h with the belief that there is some relief being achieved with only RIGHT sided block. Breakthrough pain with HOME CHILD CARE PROVIDER. Time Spent With Patient less than 15 minutes
--- NOTE | 2018-04-26 16:57 | PM.PN.1 ---
Subjective Date Patient Seen: 04/26/18 Time Patient Seen: 08:30 Interval history: Pain control this morning. Denies nausea vomiting. Complaining of irritation secondary to nasogastric tube but this is controlled as well. NG tube is collecting bilious fluid as anticipated. Patient denies chest pain or shortness of breath. Exam Vital Signs (past 8 hours): - 04/26/18 11:55 Temperature 97.8 F Pulse Rate 84 Respiratory Rate 18 Blood Pressure 138/77 Pulse Oximetry 94 Oxygen Delivery Method Room Air Oxygen Flow Rate 2 Narrative Exam Narrative: Obese female lying in bed mostly sleeping. No acute distress. Alert oriented x3. Chest clear auscultation bilaterally with regular rate and rhythm. No crackles or wheezes Abdomen is soft but distended. Dressing clean, dry, and intact. Appropriately tender. No guarding or rebound. Extremities show no clubbing or cyanosis Objective Labs Result Diagrams: 04/26/18 04:36 04/26/18 04:36 Labs: Laboratory Results - last 24 hr 04/25/18 04/26/18 04/26/18 19:40 04:36 04:36 WBC 12.0 H RBC 4.12 Hgb 12.9 Hct 37.0 MCV 89.8 MCH 31.3 MCHC 34.9 RDW 12.9 Plt Count 219 Neut % (Auto) 87.2 H Lymph % (Auto) 6.3 L [place] % (Auto) 6.3 Eos % (Auto) 0.0 L Baso % (Auto) 0.2 Neut # (Auto) 36642 H Sodium 138 Potassium 4.0 Chloride 100 Carbon Dioxide 29 BUN 7 Creatinine 0.60 Estimated GFR > 60.0 BUN/Creatinine Ratio 11.7 Glucose 107 H Calcium 8.6 Nasal Screen MRSA (PCR) Negative for mrsa Assessment & Plan Plan: Assessment/Plan Narrative: 53-year-old female postoperative day 1 from laparotomy with extensive complicated lysis of adhesions doing well. I anticipate she will have an extended prolonged postoperative ileus given the nature of her disease and required operation. I discussed this with her. Continue nasogastric tube for now. At some point she may require PICC line and TPN for nutritional support. Out of bed as tolerated per anesthesia recommendations in the context of the epidural pain catheter. Continue the catheter for now as it appears effective. Will await bowel function. All questions answered to her satisfaction, and she voiced understanding.
--- NOTE | 2018-04-26 17:01 | P.PN_ITS ---
Subjective Date Patient Seen: 04/26/18 Time Patient Seen: 08:30 Interval history: Pain control this morning. Denies nausea vomiting. Complaining of irritation secondary to nasogastric tube but this is controlled as well. NG tube is collecting bilious fluid as anticipated. Patient denies chest pain or shortness of breath. Exam Vital Signs (past 8 hours): - 04/26/18 11:55 Temperature 97.8 F Pulse Rate 84 Respiratory Rate 18 Blood Pressure 138/77 Pulse Oximetry 94 Oxygen Delivery Method Room Air Oxygen Flow Rate 2 Narrative Exam Narrative: Obese female lying in bed mostly sleeping. No acute distress. Alert oriented x3. Chest clear auscultation bilaterally with regular rate and rhythm. No crackles or wheezes Abdomen is soft but distended. Dressing clean, dry, and intact. Appropriately tender. No guarding or rebound. Extremities show no clubbing or cyanosis Objective Labs Result Diagrams: 04/26/18 04:36 04/26/18 04:36 Labs: Laboratory Results - last 24 hr 04/25/18 04/26/18 04/26/18 19:40 04:36 04:36 WBC 12.0 H RBC 4.12 Hgb 12.9 Hct 37.0 MCV 89.8 MCH 31.3 MCHC 34.9 RDW 12.9 Plt Count 219 Neut % (Auto) 87.2 H Lymph % (Auto) 6.3 L [place] % (Auto) 6.3 Eos % (Auto) 0.0 L Baso % (Auto) 0.2 Neut # (Auto) 40332 H Sodium 138 Potassium 4.0 Chloride 100 Carbon Dioxide 29 BUN 7 Creatinine 0.60 Estimated GFR > 60.0 BUN/Creatinine Ratio 11.7 Glucose 107 H Calcium 8.6 Nasal Screen MRSA (PCR) Negative for mrsa Assessment & Plan Plan: Assessment/Plan Narrative: 53-year-old female postoperative day 1 from laparotomy with extensive complicated lysis of adhesions doing well. I anticipate she will have an extended prolonged postoperative ileus given the nature of her disease and required operation. I discussed this with her. Continue nasogastric tube for now. At some point she may require PICC line and TPN for nutritional support. Out of bed as tolerated per anesthesia recommendations in the context of the epidural pain catheter. Continue the catheter for now as it appears effective. Will await bowel function. All questions answered to her satisfaction, and she voiced understanding.
--- NOTE | 2018-04-26 18:02 | PM.PNPO.1 ---
Subjective Interval history: POD#1 for ex-lap with ANA ROSA. Thoracic epidural in place for post-op pain management. No narcotics needed overnight, DRUM DYEING MACHINE OPERATOR ordered but not initiated until today. 2mg earlier in the day, 1.5mg this evening so far. Afebrile, VSS. Exam Vital Signs (past 8 hours): - 04/26/18 11:55 Temperature 97.8 F Pulse Rate 84 Respiratory Rate 18 Blood Pressure 138/77 Pulse Oximetry 94 Oxygen Delivery Method Room Air Oxygen Flow Rate 2 Narrative Exam Narrative: epidural site and bandage c/d/i. No erythema or TTP. Effective block to cold sensation T10-12, RIGHT sided only. LEFT side unaffected. Objective Labs Result Diagrams: 04/26/18 04:36 04/26/18 04:36 Labs: Laboratory Results - last 24 hr 04/25/18 04/26/18 04/26/18 19:40 04:36 04:36 WBC 12.0 H RBC 4.12 Hgb 12.9 Hct 37.0 MCV 89.8 MCH 31.3 MCHC 34.9 RDW 12.9 Plt Count 219 Neut % (Auto) 87.2 H Lymph % (Auto) 6.3 L [place] % (Auto) 6.3 Eos % (Auto) 0.0 L Baso % (Auto) 0.2 Neut # (Auto) 75227 H Sodium 138 Potassium 4.0 Chloride 100 Carbon Dioxide 29 BUN 7 Creatinine 0.60 Estimated GFR > 60.0 BUN/Creatinine Ratio 11.7 Glucose 107 H Calcium 8.6 Nasal Screen MRSA (PCR) Negative for mrsa Assessment & Plan Post-op Postoperative Procedures Operation Date: 04/25/18 16:00 Actual Procedures Side Surgeon p Exploratory Laparotomy, small bowel obstruction, lysis of adhesions Tate Levy MD Postoperative day: 1 Postoperative status narrative: RIGHT sided block from thoracic epidural, appropriate level. Pt now using dilaudid DRUM DYEING MACHINE OPERATOR and c/o anxiety, largely appears to be associated with NG tube. Relief from anxiety with prn benzo. Postoperative plan narrative: Plan to continue epidural infusion at current rate 7mL/h with the belief that there is some relief being achieved with only RIGHT sided block. Breakthrough pain with DRUM DYEING MACHINE OPERATOR. Time Spent With Patient less than 15 minutes
[2018-04-26 20:00] VITALS: BP 118/56; PULSE 95; RESP 20; TEMP 37; O2SAT 91
[2018-04-26] MEDS: HYDROMORPHONE PCA 6 MG/30 ML PCA.VIAL 2.8 MG IV (23:05)
[2018-04-26] MEDS: LACTATED RINGERS 1,000 ML 250 ML IV (23:06)
[2018-04-27] VITALS (8 sets, daily range): BP systolic 122–158; BP diastolic 62–97; PULSE 92–129; RESP 14–25; TEMP 36.5–37.4; O2SAT 92–100
[2018-04-27] MEDS: LORazepam 2 MG/ML SYRINGE 1 MG IV ×4 (00:23→20:16)
[2018-04-27] MEDS: HYDROMORPHONE PCA 6 MG/30 ML PCA.VIAL IV ×3 (06:41→22:03)
--- NOTE | 2018-04-27 08:09 | PM.PN.1 ---
Subjective Date Patient Seen: 04/27/18 Interval history: Postop day 2. Patient's main complaint is anxiety from NG tube. No abdominal pain. Feels like she is passing a little gas. No bowel movement. Exam Vital Signs (past 8 hours): - 04/27/18 04:15 Temperature 97.7 F Pulse Rate 92 H Respiratory Rate 18 Blood Pressure 140/83 Pulse Oximetry 93 Oxygen Delivery Method Room Air Oxygen Flow Rate 2 Narrative Exam Narrative: GENERAL: Patient is in no acute distress HEENT: Head normocephalic, atraumatic. Mucous membranes moist. CHEST: Clear to auscultation bilaterally. CARDIAC: Regular rate and rhythm. ABDOMEN: Absent bowel sounds, surgical dressing clean and dry EXTREMITIES: no edema. NEUROLOGICAL: Alert, pleasant, no focal findings SKIN: Warm, dry, no petechiae, no rash Objective Labs Result Diagrams: 04/26/18 04:36 04/26/18 04:36 Assessment & Plan Plan: Assessment/Plan Narrative: 1. Small bowel obstruction, status post ex lap with extensive adhesion lysis on 04/25/2018: Stable postop. NG with 250 cc output overnight. Continue NPO, IV fluids, NG as directed by surgery Service. She has Ativan ordered as needed for NG-tube anxiety. Patient's management is primarily postop surgical and and therefore the hospitalist service will sign off on her care at this time if okay with surgery Service.
--- NOTE | 2018-04-27 08:30 | CM.DPC ---
DCP Cont: Per Hospitalist MD, pt making progress and medically stable so hospitalist team signing off and pt now just with the Surgical team for discharge. Per PT, currently recommending safe d/c home with family to provide 24/7 assist when medically stable. Per RN, pt having a bit of anxiety around her NG tube and epidural and seems to be tolerating medication management for anxiety. Plan: SW to follow closely with surgical team to confirm that pt continues to progress for safe d/c home with 24/7 assist when medically stable. SW to follow for any further identified discharge planning needs. Margaret Krishnan MSW
[2018-04-27] MEDS: LACTATED RINGERS 1,000 ML 125 ML IV (09:46)
--- NOTE | 2018-04-27 12:12 | PT.IPTN ---
Current Diagnoses Morbid (severe) obesity due to excess calories (04/21/18) Anxiety disorder, unspecified (04/21/18) Partial intestinal obstruction, unspecified as to cause (04/21/18) Unspecified intestinal obstruction, unspecified as to partial versus complete obstruction (04/21/18) Upper abdominal pain, unspecified (04/21/18) Nausea with vomiting, unspecified (04/21/18) Surgery Performed Operation Date: 04/25/18 16:00 Actual Procedures p Exploratory Laparotomy, small bowel obstruction, lysis of adhesions - Tate Levy MD Physical Therapy Treatment Note M2 PT-IP Current Condition Start: 04/26/18 11:16 Freq: NEEDED Status: Active Protocol: Document 04/26/18 11:15 (Rec: 04/26/18 12:24 [email or web address]) Physical Therapy Current Condition Current Condition Evaluation Date 04/26/18 Treatment Diagnosis small bowel obstruction; difficulty walking Onset Date 04/21/18 Precautions Abdominal Surgery Precautions Log Roll Lifting Restrictions Gait Belt above Incisional Area M3 PT-IP Subjective Start: 04/26/18 11:16 Freq: NEEDED Status: Active Protocol: Document 04/27/18 12:02 NFW (Rec: 04/27/18 12:12 NFW [email or web address]) Subjective Physical Therapy Visit Type Type Treatment Note Visit Start Time 11:35 Visit Stop Time 12:00 Total Visit Minutes 25 Number of WHISKEY FILTERER Visits 0 Physical Therapy Visit Comments Patient Comments Pt agreeable to mobilize with PT. Was sitting up in chair earlier this morning. M4 PT-IP Mobility and Gait Start: 04/26/18 11:16 Freq: NEEDED Status: Active Protocol: Document 04/27/18 12:02 NFW (Rec: 04/27/18 12:12 [facility] [email or web address]) PT-Bed Mobility Assessment Rolling Type of Rolling Log Rolling Roll to Left Level of Assist Standby Assistance Supine to Sit Supine to Sit Standby Assistance 1 Person Assistance Head of Bed Elevated Bedrails Sit to Supine Sit to Supine Minimal Assistance 1 Person Assistance Head of Bed Elevated Bedrails Scooting Scooting to Edge of Bed Standby Assistance Scooting Up and Down in Bed Standby Assistance PT-Transfer Assessment Sit to and From Stand Sit to and from Stand Contact Guard Assistance Use of Upper Extremities Equipment Transfer Assistive Device Gait Belt Front Wheeled Walker Orthotic/Prosthetic Devices or Brace: No Transfers Transfer Destination Bed Gait Assessment Gait Gait Assistance Required: Contact Guard Assist Distance (Feet) 150 Able to Maintain Weight Bearing Status Yes During Gait Assistive Devices Assistive Device Gait Belt Front Wheeled Walker Orthotic/Prosthetic Devices or Brace: No Gait Deviations General Gait Pattern Decreased Stride Length Decreased Feet Clearance Factors Limiting Gait Function Factors Limiting Gait Function Decreased Activity Tolerance Decreased Strength Limited Range of Motion Pain Poor Balance Poor Safety Awareness Comments Gait Comments Continued slow guarded walk relying on FWW with UEs. M5 PT-IP Objective Assessments Start: 04/26/18 11:16 Freq: NEEDED Status: Active Protocol: Document 04/26/18 11:15 (Rec: 04/26/18 12:24 [email or web address]) Orientation Orientation/Cognition Level of Alertness Alert Orientation Name Birthday Place Situation Language Function Ability No Deficits Noted Safety Awareness Decreased Safety Awareness Comments Pt slow to respond and appearing sleepy. She is cooperative however, and does respond appropriately to cues and directions. Strength Lower Extremity Strength Assessment Bilaterally Impaired Comments Strength Comments BLE grossly 4/5 M6 PT-IP Treatment Start: 04/26/18 11:16 Freq: NEEDED Status: Active Protocol: Document 04/26/18 11:15 (Rec: 04/26/18 12:24 [email or web address]) Physical Therapy Treatment Education Education Provided Precautions Safety M7 PT-IP Assessment and Plan Start: 04/26/18 11:16 Freq: NEEDED Status: Active Protocol: Document 04/27/18 12:02 NFW (Rec: 04/27/18 12:12 NFW [email or web address]) PT Summary Assessment and Plan Summary Assessment Summary Patient even though fatigued continued with bed mobilities with min A. Patient set goal to walk to each door of ICU without a rest break and succeeded. Frequency of Treatment Frequency Of Treatment Once a Day Treatment Plan Other Recommendations and Next Treatment Progress ambulation with least Focus restrictive device (pt using fww this session, but likely to progress to spc or no AD) Stair climbing as appropriate Recommendations To Nursing Amount of Assist Needed 1 Person Assist Discharge Recommendations PT Discharge Recommendations Home with 02/01 Assist
[2018-04-27] MEDS: PANTOPRAZOLE 40 MG VIAL IV (14:10)
--- NOTE | 2018-04-27 15:54 | PM.PNPO.1 ---
Subjective Date Patient Seen: 04/27/18 Time Patient Seen: 15:54 Interval history: With patient's subdural came out. She is complaining of abdominal pain near the incision. She is thirsty would like to drink water. Exam Vital Signs (past 8 hours): - 04/27/18 08:00 04/27/18 12:00 Temperature 98.6 F 98.9 F Pulse Rate 101 H 95 H Respiratory Rate 14 16 Blood Pressure 142/97 H 148/81 H Pulse Oximetry 95 98 Oxygen Delivery Method Room Air Oxygen Flow Rate 2 Narrative Exam Narrative: Vital signs noted. The pulse slowly come down. Lungs clear anteriorly with decreased breath sounds in the bases. Heart regular rate and rhythm without murmur gallop. Abdomen is protuberant soft. Her midline wound looks fine. There is a fair amount of bruising around it but no cellulitis. Alert. Objective Labs Result Diagrams: 04/26/18 04:36 04/26/18 04:36 Assessment & Plan Post-op Postoperative Procedures Operation Date: 04/25/18 16:00 Actual Procedures Side Surgeon p Exploratory Laparotomy, small bowel obstruction, lysis of adhesions Tate Levy MD Postoperative day: 2 Postoperative status narrative: Patient doing okay. Needs to mobilize little better. Needs to breathe deeper. Little premature to remove her NG tube.
[2018-04-27] MEDS: BENZOCAINE/MENTHOL 1 LOZ PKT 1 EACH PO ×3 (16:02→23:55)
[2018-04-27] MEDS: DEXTROSE 5%-NS W/KCL 20MEQ 1,000 ML 125 MEQ IV ×2 (16:04→23:57)
--- NOTE | 2018-04-27 20:05 | PC.NURSE ---
zhou note pt reporting 7/10 pain to abd. Pt reminded to use LITHARGE SUPERVISOR. I keep forgetting about it. Incentive spirometry teaching done. Pt started at 750 ml, increasing to 1000 ml.
--- NOTE | 2018-04-27 21:45 | PC.NURSE ---
SHIFT NOTE transferred from ICU at approximately 1835 via bed. sleepy but easily arousable with verbal stimuli. Ox3, cooperative with care. midline abdominal incision CDI. c/o abdominal pain with activity, needs reinforcement to use dilaudid FLOOR COVERING PRINTER. NG intact to low intermittent wall suction. wallis remains intact. pt c/o anxiety and discomfort due to NG tube, administered PRN ativan and cepacol with good effect. call light within reach.
--- NOTE | 2018-04-28 | DI.RAD.S_ITS ---
PROCEDURE: XR ABDOMEN MIN 2V INDICATIONS: f/u sbo post adhesiolysis TECHNIQUE: 2 views of the abdomen were acquired. COMPARISON: [facility], CT, CT ABDOMEN PELVIS W CON, 04/22/2018, 18:29. [facility], CR, XR KUB, 04/24/2018, 16:38. FINDINGS: Surgical changes and devices: There is a nasogastric tube in the stomach. Skin boyd are present. Bowel: No pneumoperitoneum. The bowel gas pattern is normal. Soft tissues: No masses; visualized solid organ contours appear normal in size. No suspicious abdominal calcifications. Bones: No suspicious bony abnormalities. IMPRESSION: Postsurgical change. Normal bowel gas pattern. Dictated by: Nirali Canchola M.D. on 04/28/2018 at 15:37 Approved by: Nirali Canchola M.D. on 04/28/2018 at 15:38
[2018-04-28 04:05] VITALS: BP 161/92; PULSE 95; RESP 19; TEMP 36.9; O2SAT 93
[2018-04-28] MEDS: LORazepam 2 MG/ML SYRINGE 1 MG IV ×2 (04:23→14:12)
[2018-04-28 05:58] LABS: Add Manual Diff / Slide Review NO; Basophils Percent Auto 1.1 % (0-2); Eosinophils Percent Auto 2.2 % (2-4); Hematocrit 31.8 % (36-46); Hemoglobin 11.3 g/dL (12.0-16.0); Lymphocytes Percent Auto 14.7 % (25-40); Mean Corpuscular HGB Conc 35.4 % (30-36); Mean Corpuscular Hemoglobin 32.1 PG (26-34); Mean Corpuscular Volume 90.6 fL (80-100); Monocytes Percent Auto 10.4 % (3-14); Neutrophils Absolute Auto 6100 /uL (3000-5900); Neutrophils Percent Auto 71.6 % (50-75); Platelet Count 237 X10^3/uL (150-400); Red Blood Cell Count 3.51 X10^6/uL (4.0-5.2); Red Cell Distribution Width 12.8 % (11.6-14.8); White Blood Cell Count 8.5 X10^3/uL (4.5-11.0)
[2018-04-28 06:05] LABS: Blood Urea Nitrogen 9 mg/dL (7-17); Calcium 7.9 mg/dL (8.4-10.2); Carbon Dioxide 31 mmol/L (22-32); Chloride 100 mmol/L (98-107); Estimated Glomerular Filt Rate > 60.0 mL/min (>60); Glucose 116 mg/dL (70-100); HEMOLYSIS < 15 (0-50); Magnesium 1.6 mg/dL (1.6-2.3); Potassium 3.6 mmol/L (3.4-5.1); Sodium 137 mmol/L (137-145)
[2018-04-28] MEDS: HYDROMORPHONE PCA 6 MG/30 ML PCA.VIAL 2.6 MG IV (07:39)
[2018-04-28] MEDS: ENOXAPARIN 40 MG/0.4 ML SYRINGE SUBCUT (07:58)
[2018-04-28] MEDS: PANTOPRAZOLE 40 MG VIAL IV (07:58)
[2018-04-28] MEDS: DEXTROSE 5%-NS W/KCL 20MEQ 1,000 ML 125 MEQ IV ×2 (08:08→16:38)
[2018-04-28 09:00] VITALS: BP 147/91; PULSE 87; RESP 18; TEMP 36.6; O2SAT 96
--- NOTE | 2018-04-28 11:32 | PT.IPTN ---
Current Diagnoses Morbid (severe) obesity due to excess calories (04/21/18) Anxiety disorder, unspecified (04/21/18) Partial intestinal obstruction, unspecified as to cause (04/21/18) Unspecified intestinal obstruction, unspecified as to partial versus complete obstruction (04/21/18) Upper abdominal pain, unspecified (04/21/18) Nausea with vomiting, unspecified (04/21/18) Surgery Performed Operation Date: 04/25/18 16:00 Actual Procedures p Exploratory Laparotomy, small bowel obstruction, lysis of adhesions - Tate Levy MD Physical Therapy Treatment Note M2 PT-IP Current Condition Start: 04/26/18 11:16 Freq: NEEDED Status: Active Protocol: Document 04/26/18 11:15 (Rec: 04/26/18 12:24 [email or web address]) Physical Therapy Current Condition Current Condition Evaluation Date 04/26/18 Treatment Diagnosis small bowel obstruction; difficulty walking Onset Date 04/21/18 Precautions Abdominal Surgery Precautions Log Roll Lifting Restrictions Gait Belt above Incisional Area M3 PT-IP Subjective Start: 04/26/18 11:16 Freq: NEEDED Status: Active Protocol: Document 04/28/18 14:20 AB (Rec: 04/28/18 14:30 AB [id number]) Subjective Physical Therapy Visit Type Type Treatment Note Visit Start Time 11:32 Visit Stop Time 12:10 Total Visit Minutes 38 Number of INDEPENDENT VIDEO PRODUCER Visits 0 Physical Therapy Visit Comments Patient Comments pt initially stated that she is so sleepy to do PT but then agreed afterwards. Therapy Pain Assessment Pain When Pain Assessed At Rest Pain Present Pain Present Pain Reported Location upper abd Scale Used pain scale not stated Pain Management Techniques Re-positioning Timing of Activity with Medications M4 PT-IP Mobility and Gait Start: 04/26/18 11:16 Freq: NEEDED Status: Active Protocol: Document 04/28/18 14:20 AB (Rec: 04/28/18 14:30 AB [id number]) PT-Bed Mobility Assessment Rolling Type of Rolling Log Rolling Level of Assist Standby Assistance Supine to Sit Supine to Sit Minimal Assistance Sit to Supine Sit to Supine Maximum Assistance Head of Bed Elevated Bedrails Scooting Scooting to Edge of Bed Standby Assistance PT-Transfer Assessment Sit to and From Stand Sit to and from Stand Contact Guard Assistance Equipment Transfer Assistive Device Gait Belt Front Wheeled Walker Gait Assessment Gait Gait Assistance Required: Contact Guard Assist Minimum Assistance Distance (Feet) 150 Able to Maintain Weight Bearing Status Yes During Gait Assistive Devices Assistive Device Gait Belt Front Wheeled Walker Orthotic/Prosthetic Devices or Brace: No Gait Deviations General Gait Pattern Antalgic Decreased Stride Length Decreased Feet Clearance Factors Limiting Gait Function Factors Limiting Gait Function Decreased Activity Tolerance Decreased Strength Pain Poor Balance Poor Safety Awareness Comments Gait Comments pt completed supine to sit SBA with cues for log roll bed mobility. pt completed sit to stand CGA and ambulated in hallway using FWW ~ 150 ft. pt seemed fatigue towards end of ambulation and requiring more assistance from CGA to min A. pt requested to go back to bed after ambulation and stated that she is tired. attempted log roll sit to supine but pt stated that she cannot do it. elevated HOB up and assisted pt with elevated LE up in bed max A and max cues. positioned pt in bed. call light and table placed within reach. M5 PT-IP Objective Assessments Start: 04/26/18 11:16 Freq: NEEDED Status: Active Protocol: Document 04/26/18 11:15 (Rec: 04/26/18 12:24 [email or web address]) Orientation Orientation/Cognition Level of Alertness Alert Orientation Name Birthday Place Situation Language Function Ability No Deficits Noted Safety Awareness Decreased Safety Awareness Comments Pt slow to respond and appearing sleepy. She is cooperative however, and does respond appropriately to cues and directions. Strength Lower Extremity Strength Assessment Bilaterally Impaired Comments Strength Comments BLE grossly 4/5 M6 PT-IP Treatment Start: 04/26/18 11:16 Freq: NEEDED Status: Active Protocol: Document 04/28/18 11:32 AB (Rec: 04/28/18 14:30 AB [id number]) Physical Therapy Treatment Education Education Provided Precautions Safety M7 PT-IP Assessment and Plan Start: 04/26/18 11:16 Freq: NEEDED Status: Active Protocol: Document 04/28/18 14:20 AB (Rec: 04/28/18 14:30 AB [id number]) PT Summary Assessment and Plan Potential Rehabilitation Potential Good Summary Impairments Pain ROM Strength Balance Bed Mobility Transfers Gait Activity Tolerance Progress Towards Goals Slow Progress due to Activity Tolerance Assessment Summary pt presents with decrease activity tolerance requiring increase assistance towards end of tx session. pt stated that she has family that will assist her 02/01 at home if needed. pt may go home when medically stable but will need a FWW for ambulation, assist at home and homehealth PT. Goals Bed Mobility Goal Standby Assistance Transfer Goal Standby Assistance Front Wheeled Walker Gait Goal Standby Assistance Front Wheel Walker Gait Distance 150 Other Goals Ambulate 150 ft SBA with least restrictive or no AD. Up/down 3 steps R rail CGA as needed for safe access to home . Up/down 12 steps R rail CGA as needed/desired by pt to access 2nd floor (her bedroom is there, but she is willing to arrange to sleep on 1st floor) Days to Meet Goals 5 Frequency of Treatment Frequency Of Treatment Once a Day Treatment Plan Physical Therapy Treatment Plan Bed Mobility Training Transfer Training Gait Training Therapeutic Exercise Balance Retraining Post Op Education Discharge Planning Hot or Cold Pack Neuromuscular Re-ed Coordination Retraining Manual Therapy Other Recommendations and Next Treatment Progress ambulation with least Focus restrictive device (pt using fww this session, but likely to progress to spc or no AD) Stair climbing as appropriate Recommendations To Nursing Amount of Assist Needed 1 Person Assist Discharge Recommendations PT Discharge Recommendations Home with 02/01 Assist Home Health Equipment Needed for Home Before FWW Discharge
[2018-04-28] MEDS: HYDROMORPHONE PCA 6 MG/30 ML PCA.VIAL IV ×2 (14:46→22:30)
--- NOTE | 2018-04-28 16:02 | PC.NURSE ---
Pt somnolent in AM, denied pain and nausea; VSS; IV fluids infusing and JOY OPERATOR active; oral mucosa moist with ice chips and lip balm; pt repositioned in bed for comfort; pt ambulated in hallway with PT before lunch; NG tube low intermittent
[2018-04-28 16:05] VITALS: BP 142/77; PULSE 92; RESP 16; TEMP 36.7; O2SAT 99
[2018-04-28] MEDS: BENZOCAINE/MENTHOL 1 LOZ PKT 1 EACH PO (16:39)
--- NOTE | 2018-04-28 16:55 | PM.PNPO.1 ---
Subjective Date Patient Seen: 04/28/18 Time Patient Seen: 13:55 Interval history: Patient very uncomfortable with the NG tube. Having some abdominal pain. Has been up and about. Exam Vital Signs (past 8 hours): - 04/28/18 09:00 04/28/18 16:05 Temperature 97.9 F 98.1 F Pulse Rate 87 92 H Respiratory Rate 18 16 Blood Pressure 147/91 H 142/77 H Pulse Oximetry 96 99 Oxygen Delivery Method Room Air Oxygen Flow Rate 2 Narrative Exam Narrative: Lungs are clear but could do a whole lot better with the breathing. Heart regular rate and rhythm without murmur gallop. Abdomen is soft. Midline is intact. Bruising noted. No cellulitis. Chaparro is in place. Objective Labs Result Diagrams: 04/28/18 05:35 04/28/18 05:35 Labs: Laboratory Results - last 24 hr 04/28/18 04/28/18 05:35 05:35 WBC 8.5 RBC 3.51 L Hgb 11.3 L Hct 31.8 L MCV 90.6 MCH 32.1 MCHC 35.4 RDW 12.8 Plt Count 237 Neut % (Auto) 71.6 Lymph % (Auto) 14.7 L [place] % (Auto) 10.4 Eos % (Auto) 2.2 Baso % (Auto) 1.1 Neut # (Auto) 6100 H Sodium 137 Potassium 3.6 Chloride 100 Carbon Dioxide 31 BUN 9 Creatinine 0.60 Estimated GFR > 60.0 BUN/Creatinine Ratio 15.0 Glucose 116 H Calcium 7.9 L Magnesium 1.6 Assessment & Plan Post-op Postoperative Procedures Operation Date: 04/25/18 16:00 Actual Procedures Side Surgeon p Exploratory Laparotomy, small bowel obstruction, lysis of adhesions Tate Levy MD Postoperative status narrative: Doing pretty well. Work on her breathing. Will obtain some x-rays and see if I can pull her NG tube. Postoperative plan narrative: X-rays were performed and I have reviewed them. No distention of her intestine is noted. Will remove her NG but keep her NPO.
--- NOTE | 2018-04-28 17:45 | PC.NURSE ---
Addendum entered by Meghana Resendiz R.N. 04/28/18 21:42: Pt resting at intervals this evening. Assisted w/shower. IV continues as per orders. Chaparro cath patent. Stable post op course. Call light w/in reach, bed alarm on for pt safety. Contninue w/plan of care. Original Note: Pt resting quietly at this time. IF D5NS w/20meq KCL infusing into right hand via pump w/o incidence. Abdominal dsg and binder CDI. NG discontinued as per orders. Chaparro cath patent light paola urine. Stable post op course. Call light w/in reach, bed alarm on for pt safety.
[2018-04-28 20:34] VITALS: BP 137/78; PULSE 90; RESP 18; TEMP 36.9; O2SAT 95
[2018-04-29] VITALS (7 sets, daily range): BP systolic 126–159; BP diastolic 76–97; PULSE 79–88; RESP 16–18; TEMP 36.2–37; O2SAT 92–98
[2018-04-29] MEDS: HYDROMORPHONE PCA 6 MG/30 ML PCA.VIAL IV (06:25)
[2018-04-29] MEDS: DEXTROSE 5%-NS W/KCL 20MEQ 1,000 ML 125 MEQ IV ×2 (08:47→16:44)
[2018-04-29] MEDS: ENOXAPARIN 40 MG/0.4 ML SYRINGE SUBCUT (08:47)
[2018-04-29] MEDS: PANTOPRAZOLE 40 MG VIAL IV (08:47)
--- NOTE | 2018-04-29 11:54 | PM.PNPO.1 ---
Subjective Date Patient Seen: 04/29/18 Time Patient Seen: 11:33 Interval history: Patient feeling a little better. She is glad the NG is out. She had her Chaparro still in this morning but I asked the nurses to remove it. She has been ambulating in the soto. Says she is passing some flatus. Exam Vital Signs (past 8 hours): - 04/29/18 05:00 04/29/18 08:00 Temperature 98.2 F 97.2 F L Pulse Rate 86 81 Respiratory Rate 18 17 Blood Pressure 136/90 135/79 Pulse Oximetry 96 96 Oxygen Delivery Method Room Air Oxygen Flow Rate 0 Narrative Exam Narrative: Lungs clear anteriorly but not moving a lot air. Do not hear much movement in the bases. Heart regular rate and rhythm without murmur gallop. Abdomen is soft. Wound is intact. Bruising as before. No cellulitis. Objective Labs Result Diagrams: 04/28/18 05:35 04/28/18 05:35 Assessment & Plan Post-op Postoperative Procedures Operation Date: 04/25/18 16:00 Actual Procedures Side Surgeon p Exploratory Laparotomy, small bowel obstruction, lysis of adhesions Tate Levy MD Postoperative day: 4 Postoperative status: doing well Postoperative status narrative: X-rays from yesterday showed a fairly normal gas pattern. No marked distention was noted sore NG was pulled. However it is little premature I think to start giving her fluids today. Will probably wait for the morning. Postoperative plan narrative: Continue IV fluid. Possible p.o. starting tomorrow. Encouraged her to deep breathe and cough. She has to use her incentive spirometer more effectively. Time Spent With Patient less than 15 minutes
[2018-04-29] MEDS: HYDROMORPHONE PCA 6 MG/30 ML PCA.VIAL 2 MG IV (14:12)
--- NOTE | 2018-04-29 14:40 | PC.NURSE ---
1430 Pt mup for ambulation in allway x 2 this shift. Pt kadi fergusond at 1100, has voided x 1 BRP. Pt remians NPO. IVF continue.
--- NOTE | 2018-04-29 15:09 | CM.DPC ---
DCP/continued: Briefly reviewed note. Patient ambulated with PT on 04-28-18. Current recommendation is home with 24/7 and/or possibly home health. Notes report patient progressing. Per notes, attending is hospitalist but in AM rounds Dr. Vick reports signing off. UR/RN updated. P: CM team to follow closely for d/c planning needs. BRENDAN Lan
--- NOTE | 2018-04-29 16:59 | PT.IPTN ---
Current Diagnoses Morbid (severe) obesity due to excess calories (04/21/18) Anxiety disorder, unspecified (04/21/18) Partial intestinal obstruction, unspecified as to cause (04/21/18) Unspecified intestinal obstruction, unspecified as to partial versus complete obstruction (04/21/18) Upper abdominal pain, unspecified (04/21/18) Nausea with vomiting, unspecified (04/21/18) Surgery Performed Operation Date: 04/25/18 16:00 Actual Procedures p Exploratory Laparotomy, small bowel obstruction, lysis of adhesions - Tate Levy MD Physical Therapy Treatment Note M2 PT-IP Current Condition Start: 04/26/18 11:16 Freq: NEEDED Status: Active Protocol: Document 04/29/18 16:43 NFW (Rec: 04/29/18 16:58 NFW [email or web address]) Physical Therapy Current Condition Current Condition Evaluation Date 04/26/18 Treatment Diagnosis small bowel obstruction; difficulty walking Onset Date 04/21/18 Precautions Abdominal Surgery Precautions Log Roll Lifting Restrictions Gait Belt above Incisional Area M3 PT-IP Subjective Start: 04/26/18 11:16 Freq: NEEDED Status: Active Protocol: Document 04/29/18 16:43 NFW (Rec: 04/29/18 16:58 NFW [email or web address]) Subjective Physical Therapy Visit Type Type Treatment Note Visit Start Time 16:10 Visit Stop Time 16:40 Total Visit Minutes 30 Number of SUGAR CANE PLANTING EQUIPMENT OPERATOR Visits 0 Physical Therapy Visit Comments Patient Comments Patient with concerns of cramping sensation in abdomen . Checked with nursing, cleared to continue with care. Therapy Pain Assessment Pain When Pain Assessed At Rest M4 PT-IP Mobility and Gait Start: 04/26/18 11:16 Freq: NEEDED Status: Active Protocol: Document 04/29/18 16:43 NFW (Rec: 04/29/18 16:58 NFW [email or web address]) PT-Bed Mobility Assessment Rolling Type of Rolling Log Rolling Level of Assist Contact Guard Assistance Minimal Assistance 1 Person Assistance Supine to Sit Supine to Sit Minimal Assistance 1 Person Assistance Sit to Supine Sit to Supine Minimal Assistance 1 Person Assistance Scooting Scooting to Edge of Bed Standby Assistance PT-Transfer Assessment Sit to and From Stand Sit to and from Stand Contact Guard Assistance Equipment Transfer Assistive Device Gait Belt Front Wheeled Walker Transfers Transfer Destination Bed Comments Mobility Comments Sd lying to sitting, pt required min assist to sitting position. In returning to bed required min assist with lifting LEs. Verbal cuing required throughout for proper technique. Gait Assessment Gait Gait Assistance Required: Contact Guard Assist Minimum Assistance Distance (Feet) 500 Able to Maintain Weight Bearing Status Yes During Gait Assistive Devices Assistive Device Gait Belt Front Wheeled Walker Orthotic/Prosthetic Devices or Brace: No Gait Deviations General Gait Pattern Decreased Stride Length Decreased Feet Clearance Factors Limiting Gait Function Factors Limiting Gait Function Decreased Activity Tolerance Decreased Strength Pain Poor Balance Poor Safety Awareness Comments Gait Comments Patient initially hesitant to ambulate but did well. Had w/ c following in case cramping in abdominals increased with ambulation. M5 PT-IP Objective Assessments Start: 04/26/18 11:16 Freq: NEEDED Status: Active Protocol: Document 04/26/18 11:15 (Rec: 04/26/18 12:24 [id number]) Orientation Orientation/Cognition Level of Alertness Alert Orientation Name Birthday Place Situation Language Function Ability No Deficits Noted Safety Awareness Decreased Safety Awareness Comments Pt slow to respond and appearing sleepy. She is cooperative however, and does respond appropriately to cues and directions. Strength Lower Extremity Strength Assessment Bilaterally Impaired Comments Strength Comments BLE grossly 4/5 M6 PT-IP Treatment Start: 04/26/18 11:16 Freq: NEEDED Status: Active Protocol: Document 04/29/18 16:43 NFW (Rec: 04/29/18 16:58 NFW [email or web address]) Physical Therapy Treatment Other Treatments Other Treatment Performed Review log rolling. M7 PT-IP Assessment and Plan Start: 04/26/18 11:16 Freq: NEEDED Status: Active Protocol: Document 04/29/18 16:43 NFW (Rec: 04/29/18 16:58 NFW [email or web address]) PT Summary Assessment and Plan Potential Rehabilitation Potential Good Summary Impairments Pain ROM Strength Balance Bed Mobility Transfers Gait Activity Tolerance Assessment Summary Improved walking endurance and pace despite concerns of abdominal cramping. Showing progress. Frequency of Treatment Frequency Of Treatment Once a Day Recommendations To Nursing Amount of Assist Needed 1 Person Assist Discharge Recommendations PT Discharge Recommendations Home with 02/01 Assist Home Health
--- NOTE | 2018-04-29 19:01 | PC.NURSE ---
A/O x3, family in to visit. Ambulated with PT entire loop. 95% RA, LS right side clear, left side throughout wheezing, encouraged I.S. and provided demonstration. BT+ c/o mod/severe sporatic cramping to ABD, encouraged I.S. and more ambulation, remains NPO status, ice ships ok. SBA BRP to void clear paola urine. Pt reports new diagnosis anxiety/Depression, became tearful after a phone call concerning Thanksgiving, and not sure if able to attend. Dilaudid NUTRITION CLUB AMBASSADOR 0.2/03/17 for pain. call light in reach and bed alarm on.
[2018-04-29] MEDS: HYDROMORPHONE PCA 6 MG/30 ML PCA.VIAL 3.6 MG IV (23:06)
[2018-04-30] VITALS (7 sets, daily range): BP systolic 133–156; BP diastolic 72–98; PULSE 81–93; RESP 16–18; TEMP 36.7–37.2; O2SAT 94–96
[2018-04-30] MEDS: DEXTROSE 5%-NS W/KCL 20MEQ 1,000 ML 125 MEQ IV ×3 (00:42→19:39)
--- NOTE | 2018-04-30 02:40 | PC.NURSE ---
Patient lost IV. New IV placed 22 g in right FA. Three attempts,two RNs to initate new IV. Patient has a lot of valves, and is a very hard stick.
[2018-04-30] MEDS: HYDROMORPHONE PCA 6 MG/30 ML PCA.VIAL IV ×3 (06:33→21:32)
[2018-04-30] MEDS: ENOXAPARIN 40 MG/0.4 ML SYRINGE SUBCUT (10:11)
[2018-04-30] MEDS: PANTOPRAZOLE 40 MG VIAL IV (10:12)
--- NOTE | 2018-04-30 12:51 | PM.PN.1 ---
Subjective Date Patient Seen: 04/30/18 Time Patient Seen: 12:51 Interval history: Denies significant pain. Incisional pain is well control with ELECTRIC GAS APPLIANCES DEMONSTRATOR. No nausea or vomiting. She is beginning to have return of appetite. Passing flatus but no bowel movement. No dysuria or hematuria. Ambulating without issue. No subjective fever or chills. No chest pain or shortness of breath. Exam Vital Signs (past 8 hours): - 04/30/18 06:23 04/30/18 07:59 Temperature 98.4 F 98.1 F Pulse Rate 84 85 Respiratory Rate 18 16 Blood Pressure 137/90 133/72 Pulse Oximetry 96 95 Oxygen Delivery Method Room Air Oxygen Flow Rate 0 Narrative Exam Narrative: Well-nourished well-developed female lying comfortably in bedside chair in no acute distress. Alert oriented x3. Chest clear to auscultation bilaterally with regular rate and rhythm. No wheezes. Abdomen is soft and essentially nondistended. She is appropriately tender at the incision which is clean, dry, and intact. No erythema or ecchymosis. No wound drainage. No guarding or rebound tenderness. Extremities show no clubbing or cyanosis Objective Labs Result Diagrams: 04/28/18 05:35 04/28/18 05:35 Labs: No new laboratory or radiographic studies for review Assessment & Plan Plan: Assessment/Plan Narrative: 53-year-old female postoperative day 5 from exploratory laparotomy with extensive lysis of adhesions for small-bowel obstruction who overall is doing quite well at this point. Her ileus is slowly resolving. Her postoperative ileus, however, is not unanticipated after the her surgery and the nature of her disease. Allow clear liquid diet today. Restart home medications for hypertension. Ambulate as tolerated. She may shower. Continue IV fluids and ELECTRIC GAS APPLIANCES DEMONSTRATOR for now. Once she is tolerating a clear liquid diet then potentially change to oral analgesia and saline lock the IV. However, I will not advance her diet beyond clear liquids until she has evidence of consistent bowel function. All the above discussed with the patient in detail. Questions were answered to her satisfaction, and she voiced understanding. Orders were written. Case discussed with the attending nurse.
--- NOTE | 2018-04-30 12:54 | P.PN_ITS ---
Subjective Date Patient Seen: 04/30/18 Time Patient Seen: 12:51 Interval history: Denies significant pain. Incisional pain is well control with AIRCRAFT ORDNANCE SYSTEMS MECHANIC. No nausea or vomiting. She is beginning to have return of appetite. Passing flatus but no bowel movement. No dysuria or hematuria. Ambulating without issue. No subjective fever or chills. No chest pain or shortness of breath. Exam Vital Signs (past 8 hours): - 04/30/18 06:23 04/30/18 07:59 Temperature 98.4 F 98.1 F Pulse Rate 84 85 Respiratory Rate 18 16 Blood Pressure 137/90 133/72 Pulse Oximetry 96 95 Oxygen Delivery Method Room Air Oxygen Flow Rate 0 Narrative Exam Narrative: Well-nourished well-developed female lying comfortably in bedside chair in no acute distress. Alert oriented x3. Chest clear to auscultation bilaterally with regular rate and rhythm. No wheezes. Abdomen is soft and essentially nondistended. She is appropriately tender at the incision which is clean, dry, and intact. No erythema or ecchymosis. No wound drainage. No guarding or rebound tenderness. Extremities show no clubbing or cyanosis Objective Labs Result Diagrams: 04/28/18 05:35 04/28/18 05:35 Labs: No new laboratory or radiographic studies for review Assessment & Plan Plan: Assessment/Plan Narrative: 53-year-old female postoperative day 5 from exploratory laparotomy with extensive lysis of adhesions for small-bowel obstruction who overall is doing quite well at this point. Her ileus is slowly resolving. Her postoperative ileus, however, is not unanticipated after the her surgery and the nature of her disease. Allow clear liquid diet today. Restart home medications for hypertension. Ambulate as tolerated. She may shower. Continue IV fluids and AIRCRAFT ORDNANCE SYSTEMS MECHANIC for now. Once she is tolerating a clear liquid diet then potentially change to oral analgesia and saline lock the IV. However, I will not advance her diet beyond clear liquids until she has evidence of consistent bowel function. All the above discussed with the patient in detail. Questions were answered to her satisfaction, and she voiced understanding. Orders were written. Case discussed with the attending nurse.
--- NOTE | 2018-04-30 16:23 | PT.IPTN ---
Current Diagnoses Morbid (severe) obesity due to excess calories (04/21/18) Anxiety disorder, unspecified (04/21/18) Partial intestinal obstruction, unspecified as to cause (04/21/18) Unspecified intestinal obstruction, unspecified as to partial versus complete obstruction (04/21/18) Upper abdominal pain, unspecified (04/21/18) Nausea with vomiting, unspecified (04/21/18) Surgery Performed Operation Date: 04/25/18 16:00 Actual Procedures p Exploratory Laparotomy, small bowel obstruction, lysis of adhesions - Tate Levy MD Physical Therapy Treatment Note M2 PT-IP Current Condition Start: 04/26/18 11:16 Freq: NEEDED Status: Active Protocol: Document 04/29/18 16:43 NFW (Rec: 04/29/18 16:58 NFW [email or web address]) Physical Therapy Current Condition Current Condition Evaluation Date 04/26/18 Treatment Diagnosis small bowel obstruction; difficulty walking Onset Date 04/21/18 Precautions Abdominal Surgery Precautions Log Roll Lifting Restrictions Gait Belt above Incisional Area M3 PT-IP Subjective Start: 04/26/18 11:16 Freq: NEEDED Status: Active Protocol: Document 04/30/18 15:40 CLB (Rec: 04/30/18 16:23 CLB [id number]) Subjective Physical Therapy Visit Type Type Treatment Note Visit Start Time 15:40 Visit Stop Time 16:07 Total Visit Minutes 27 Number of JAVASCRIPT ENGINEER Visits 1 Physical Therapy Visit Comments Patient Comments Pt eager to ambulate this afternoon and had already been up walking with nursing during the day. M4 PT-IP Mobility and Gait Start: 04/26/18 11:16 Freq: NEEDED Status: Active Protocol: Document 04/30/18 15:40 CLB (Rec: 04/30/18 16:23 CLB [id number]) PT-Transfer Assessment Sit to and From Stand Sit to and from Stand Standby Assistance Use of Upper Extremities Equipment Transfer Assistive Device Gait Belt Front Wheeled Walker Orthotic/Prosthetic Devices or Brace: No Transfers Transfer Destination Chair Toilet Gait Assessment Gait Gait Assistance Required: Standby Assistance Distance (Feet) 500 Assistive Devices Assistive Device Gait Belt Front Wheeled Walker Orthotic/Prosthetic Devices or Brace: No Gait Deviations General Gait Pattern Decreased Stride Length Decreased Feet Clearance Factors Limiting Gait Function Factors Limiting Gait Function Decreased Activity Tolerance Decreased Strength Pain Comments Gait Comments Pt improving gait ilana and stride. Pt is demonstrating good safety awareness needing assist with IV lines. M5 PT-IP Objective Assessments Start: 04/26/18 11:16 Freq: NEEDED Status: Active Protocol: Document 04/26/18 11:15 (Rec: 04/26/18 12:24 [id number]) Orientation Orientation/Cognition Level of Alertness Alert Orientation Name Birthday Place Situation Language Function Ability No Deficits Noted Safety Awareness Decreased Safety Awareness Comments Pt slow to respond and appearing sleepy. She is cooperative however, and does respond appropriately to cues and directions. Strength Lower Extremity Strength Assessment Bilaterally Impaired Comments Strength Comments BLE grossly 4/5 M6 PT-IP Treatment Start: 04/26/18 11:16 Freq: NEEDED Status: Active Protocol: Document 04/29/18 16:43 NFW (Rec: 04/29/18 16:58 NFW [email or web address]) Physical Therapy Treatment Other Treatments Other Treatment Performed Review log rolling. M7 PT-IP Assessment and Plan Start: 04/26/18 11:16 Freq: NEEDED Status: Active Protocol: Document 04/30/18 15:40 CLB (Rec: 04/30/18 16:23 CLB [id number]) PT Summary Assessment and Plan Summary Impairments Pain ROM Strength Balance Bed Mobility Transfers Gait Activity Tolerance Assessment Summary Pt improving with gait requiring SBA , pt used IV pole only to ambulate once in room to toilet then to sink to wash hands. Pt stood at sink SBA w/o LOB even when reaching for soap and paper towel. Goals Bed Mobility Goal Standby Assistance Transfer Goal Standby Assistance Front Wheeled Walker Gait Goal Standby Assistance Front Wheel Walker Gait Distance 150 Other Goals Ambulate 150 ft SBA with least restrictive or no AD. Up/down 3 steps R rail CGA as needed for safe access to home . Up/down 12 steps R rail CGA as needed/desired by pt to access 2nd floor (her bedroom is there, but she is willing to arrange to sleep on 1st floor) Days to Meet Goals 5 Treatment Plan Physical Therapy Treatment Plan Bed Mobility Training Transfer Training Gait Training Therapeutic Exercise Balance Retraining Post Op Education Discharge Planning Hot or Cold Pack Neuromuscular Re-ed Coordination Retraining Manual Therapy Other Recommendations and Next Treatment Progress ambulation with least Focus restrictive device (pt using fww this session, but likely to progress to spc or no AD) Stair climbing as appropriate Recommendations To Nursing Amount of Assist Needed 1 Person Assist Discharge Recommendations PT Discharge Recommendations Home with 02/01 Assist Home Health Equipment Needed for Home Before FWW Discharge
--- NOTE | 2018-04-30 21:44 | PC.NURSE ---
Addendum entered by Yi Lopez R.N. 04/30/18 22:01: Patient refused shower tonight, said she would rather do shower in AM. Original Note: Slight temp 99.0, other VS stable. Lungs clear. Patient is Ox3. Carol reports passing flatus tonight, BT hyperactive throughout all quads. Ambulated in hallway x 2 on evening shift. Reports ambulation helps the cramping pain to abdomen. Rates abdomen discomfort 3-4, using SCHOOL VOCATIONAL EDUCATOR Dilaudid as needed, has used 2.0 mg evening shift. MOBILE DEVICE DEVELOPER set patient up to shower. Family visiting in room earlier this evening.
[2018-05-01] VITALS (8 sets, daily range): BP systolic 125–162; BP diastolic 70–93; PULSE 74–97; RESP 14–22; TEMP 36.5–37; O2SAT 94–98
[2018-05-01] MEDS: HYDROMORPHONE PCA 6 MG/30 ML PCA.VIAL IV (05:53)
--- NOTE | 2018-05-01 07:36 | PC.NURSE ---
Pt. IV accessed was dislodged after she went to the BR. Tried to RS her IV by 2 RNs but was unsuccessful. Pt. refused another IV start. Dr. Mcgowan notified ordered to leave IV out for now. Start Percocet 1-2 tabs. every 4 hrs. PRN. Report given to day RN. Will cont. POC & monitor.
[2018-05-01] MEDS: OXYCODONE/ACETAMINOPHEN 5/325 TABLET 1 TAB PO ×3 (07:50→17:04)
[2018-05-01] MEDS: LISINOPRIL 10 MG TABLET PO (10:12)
[2018-05-01] MEDS: ENOXAPARIN 40 MG/0.4 ML SYRINGE SUBCUT (10:12)
--- NOTE | 2018-05-01 11:50 | CM.DPC ---
DCP/continued: Reviewed chart. Patient seen by PT today and cleared to d/c home when medically stable. P: Home when stable. CM team to continue to follow if d/c needs were to arise. BRENDAN Lan
--- NOTE | 2018-05-01 13:44 | PC.NURSE ---
Addendum entered by Tnaia Aldrich R.N. 05/01/18 16:07: Agree with student RN note/assessment as entered. Original Note: Day shift Assumed pt care at 0700. pt is a/o x3, rates pain at 5/10, 1 tab of Percocet given at 0750 with pain relief. Abdominal incision c/d/i. Pt remains with no IV access, MD aware. 1 tab of Percocet given at 1220 per pt request. Pt is tolerating minimal clear liquids. POC continues, bed in lowest locked position and call light within reach.
--- NOTE | 2018-05-01 15:36 | PT.IPTN ---
Current Diagnoses Morbid (severe) obesity due to excess calories (04/21/18) Anxiety disorder, unspecified (04/21/18) Partial intestinal obstruction, unspecified as to cause (04/21/18) Unspecified intestinal obstruction, unspecified as to partial versus complete obstruction (04/21/18) Upper abdominal pain, unspecified (04/21/18) Nausea with vomiting, unspecified (04/21/18) Surgery Performed Operation Date: 04/25/18 16:00 Actual Procedures p Exploratory Laparotomy, small bowel obstruction, lysis of adhesions - Tate Levy MD Physical Therapy Treatment Note M2 PT-IP Current Condition Start: 04/26/18 11:16 Freq: NEEDED Status: Active Protocol: Document 04/29/18 16:43 NFW (Rec: 04/29/18 16:58 NFW [email or web address]) Physical Therapy Current Condition Current Condition Evaluation Date 04/26/18 Treatment Diagnosis small bowel obstruction; difficulty walking Onset Date 04/21/18 Precautions Abdominal Surgery Precautions Log Roll Lifting Restrictions Gait Belt above Incisional Area M3 PT-IP Subjective Start: 04/26/18 11:16 Freq: NEEDED Status: Active Protocol: Document 05/01/18 15:05 CLB (Rec: 05/01/18 15:35 CLB [id number]) Subjective Physical Therapy Visit Type Type Treatment Note Visit Start Time 15:05 Visit Stop Time 15:15 Total Visit Minutes 10 Number of BROACH OPERATOR Visits 2 Physical Therapy Visit Comments Patient Comments Pt agreeable to take a walk. Therapy Pain Assessment Pain When Pain Assessed At Rest Pain Present Pain Present Pain Reported Location Abdomen Intensity 4 M4 PT-IP Mobility and Gait Start: 04/26/18 11:16 Freq: NEEDED Status: Active Protocol: Document 05/01/18 15:05 CLB (Rec: 05/01/18 15:35 CLB [id number]) PT-Transfer Assessment Sit to and From Stand Sit to and from Stand Standby Assistance Equipment Transfer Assistive Device Gait Belt Orthotic/Prosthetic Devices or Brace: No Transfers Transfer Destination Chair Gait Assessment Gait Gait Assistance Required: Standby Assistance Distance (Feet) 500 Assistive Devices Assistive Device Gait Belt Orthotic/Prosthetic Devices or Brace: No Gait Deviations General Gait Pattern Decreased Feet Clearance Factors Limiting Gait Function Factors Limiting Gait Function Decreased Activity Tolerance Decreased Strength Pain Comments Gait Comments Pt able to ambulate CGA then SBA w/o AD ~500ft. Pt continues to demomstrate good safety awareness. Stair Climbing Assessment Evaluation Level of Assist On Stairs Standby Assistance Devices Stair Climbing Assistive Devices Right Railing Technique/Endurance Stair Climbing Direction Ascend and Descend Stair Climbing Technique Step Over Step Step to Step Number of Steps Climbed 3 Query Text: Stair Climbing Set # Repetitions (reps) 2 Comments Stair Climbing Comments Pt demonstrated good tolerance with stairs using step over step up stairs and step to step down stairs. M5 PT-IP Objective Assessments Start: 04/26/18 11:16 Freq: NEEDED Status: Active Protocol: Document 04/26/18 11:15 (Rec: 04/26/18 12:24 [id number]) Orientation Orientation/Cognition Level of Alertness Alert Orientation Name Birthday Place Situation Language Function Ability No Deficits Noted Safety Awareness Decreased Safety Awareness Comments Pt slow to respond and appearing sleepy. She is cooperative however, and does respond appropriately to cues and directions. Strength Lower Extremity Strength Assessment Bilaterally Impaired Comments Strength Comments BLE grossly 4/5 M6 PT-IP Treatment Start: 04/26/18 11:16 Freq: NEEDED Status: Active Protocol: Document 04/29/18 16:43 NFW (Rec: 04/29/18 16:58 NFW [email or web address]) Physical Therapy Treatment Other Treatments Other Treatment Performed Review log rolling. M7 PT-IP Assessment and Plan Start: 04/26/18 11:16 Freq: NEEDED Status: Active Protocol: Document 05/01/18 15:05 CLB (Rec: 05/01/18 15:35 CLB [id number]) PT Summary Assessment and Plan Summary Progress Towards Goals Progressing Toward Goals Assessment Summary Pt trialed ambulation w/o AD with CGA then SBA, pt successfully trialed stairs SBA. Pt seems able to d/c home with assist when medically stable. Goals Bed Mobility Goal Standby Assistance Transfer Goal Standby Assistance Front Wheeled Walker Gait Goal Standby Assistance Front Wheel Walker Gait Distance 150 Other Goals Ambulate 150 ft SBA with least restrictive or no AD. Up/down 3 steps R rail CGA as needed for safe access to home . Up/down 12 steps R rail CGA as needed/desired by pt to access 2nd floor (her bedroom is there, but she is willing to arrange to sleep on 1st floor) Days to Meet Goals 5 Frequency of Treatment Frequency Of Treatment Once a Day Treatment Plan Physical Therapy Treatment Plan Bed Mobility Training Transfer Training Gait Training Therapeutic Exercise Balance Retraining Post Op Education Discharge Planning Hot or Cold Pack Neuromuscular Re-ed Coordination Retraining Manual Therapy Recommendations To Nursing Amount of Assist Needed 1 Person Assist Discharge Recommendations PT Discharge Recommendations Home with 02/01 Assist Home Health
--- NOTE | 2018-05-01 16:08 | PC.NURSE ---
Shift summary: Late entry Alert and oriented X3. Tolerating clear liquids without N/V. No IV access. Abd pain well-managed with 1 tab PO Percocet. BT+ X4, flatus+. Midline abd incision AUTOMAT WATCHER, well-approximated and without erythema/bleeding/drainage. Lungs CTA, HRR. Encouraged coughing, deep breathing and IS use. VSS. Stand-by assist to BR, voiding WNL. Able to make needs known and calls appropriately. Declined shower today, may want one this evening.
--- NOTE | 2018-05-01 18:08 | PM.PN.1 ---
Subjective Date Patient Seen: 05/01/18 Time Patient Seen: 18:08 Interval history: Pain well controlled with oral Percocet. Denies nausea or vomiting. Tolerating clear liquids without any issues. Passing flatus but no bowel movement as yet. Ambulating without difficulty. No wound drainage. No subjective fever or chills. No chest pain or shortness of breath. Exam Vital Signs (past 8 hours): - 05/01/18 10:12 05/01/18 11:46 05/01/18 15:41 Temperature 97.7 F 98.1 F Pulse Rate 97 H 76 74 Respiratory Rate 14 18 Blood Pressure 142/88 H 157/93 H 162/88 H Pulse Oximetry 97 95 Oxygen Delivery Method Room Air Oxygen Flow Rate 0 Narrative Exam Narrative: Well-nourished well-developed female in no acute distress. Alert oriented x3. Lying comfortably in bed watching television Regular rate and rhythm No wheezes Abdomen obese but soft and nondistended. She is minimally tender to palpation at the incision. Certainly no guarding or rebound. Wound is clean, dry, and intact without erythema or ecchymosis. No drainage. Extremities show no clubbing or cyanosis Objective Labs Result Diagrams: 04/28/18 05:35 04/28/18 05:35 Labs: No new radiographic studies or laboratory studies for review Assessment & Plan Plan: Assessment/Plan Narrative: 53-year-old female postoperative day 6 from laparotomy with extensive lysis of adhesions doing well currently with no evidence of complications. Her anticipated postoperative ileus is slowly resolving. Will assist bowel function. She has no IV access but she is doing well with oral medications at this point. If she continues to do this well we will advance her to regular diet tomorrow. Once she is tolerating a regular diet and showing consistent bowel function she would be ready to discharge to home. Discharge may be possibly as early as tomorrow evening but more likely the following day depending on her overall clinical status. I discussed this with her in detail since he is anxious to be discharged home. All questions were answered to her satisfaction, and she voiced understanding. Orders were written.
[2018-05-01] MEDS: PANTOPRAZOLE 40 MG TABLET PO (21:06)
[2018-05-01] MEDS: DOCUSATE 100 MG CAPSULE PO (21:06)
[2018-05-01] MEDS: SENNOSIDES 8.6 MG TABLET PO (21:06)
[2018-05-01] MEDS: OXYCODONE/ACETAMINOPHEN 5/325 TABLET 2 TAB PO (21:07)
[2018-05-02] VITALS (8 sets, daily range): BP systolic 141–159; BP diastolic 77–104; PULSE 78–83; RESP 15–18; TEMP 35.6–37.1; O2SAT 92–97
[2018-05-02] MEDS: OXYCODONE/ACETAMINOPHEN 5/325 TABLET 2 TAB PO (03:24)
--- NOTE | 2018-05-02 06:34 | PC.NURSE ---
Addendum entered by Ginny Lyons R.N. 05/02/18 06:36: Pt reports passing flatus, BT+. Original Note: power switchboard operator overview: at 0325 pt medicated with 2 tab PRN Percocet for 6-7/10 abdominal pain, denies nausea. Pt ate some apple sauce with meds. 0540 pt had appr 1000ml dark green emesis. Right after pt vomited she denies nausea and reports taht her pain has decreased to 4-5/10.
--- NOTE | 2018-05-02 06:51 | DI.RAD.S_ITS ---
PROCEDURE: XR ACUTE ABDOMEN SERIES INDICATIONS: rule out ileus TECHNIQUE: One view chest and two views of the abdomen were acquired. COMPARISON: [facility], , XR ACUTE ABDOMEN SERIES, 04/21/2018, 15:18. FINDINGS: Surgical changes and devices: Staple line projects over the pelvis and lower abdomen. Chest: Lungs are clear. Heart size is normal. No pleural effusions. No pneumoperitoneum. Abdomen: A few mildly distended small bowel loops within the left hemiabdomen are present.. No suspicious calcifications. Visualized solid organ contours appear normal. Bones: No suspicious bony lesions. IMPRESSION: Mildly distended small bowel loops within the left hemiabdomen, which would be consistent with ileus. Dictated by: Elif Peña M.D. on 05/02/2018 at 9:03 Approved by: Elif Peña M.D. on 05/02/2018 at 9:03
--- NOTE | 2018-05-02 08:43 | PC.NURSE ---
Patient laying in bed this morning, a little teary eyed and upset over set back of vomiting this morning and now NPO. Plan for abdominal series this morning. INcision to abdomen remains COKE WHEELER with boyd in place, well approximated without drainage or reddness. COntinue to monitor and continue with plan of care.
--- NOTE | 2018-05-02 10:15 | PC.NURSE ---
Patient NPO status, oral medications not given related to previous large volume emesis with hypoactive bowel tones and activity and prepping for xrary and PICC placement.
--- NOTE | 2018-05-02 10:16 | DI.RAD.S_ITS ---
PROCEDURE: XR CHEST FOR PICC 1V INDICATIONS: line placement TECHNIQUE: One view of the chest was acquired. COMPARISON: [facility], , XR CHEST 1V, 04/23/2018, 15:50. FINDINGS: Surgical changes and devices: There is a left PICC, the tip of which is projected over the cavoatrial junction. Lungs and pleura: No pleural effusions or pneumothorax. Lungs are clear. Mediastinum: Mediastinal contours appear normal. Heart size is normal. Bones and chest wall: No suspicious bony lesions. Overlying soft tissues appear unremarkable. IMPRESSION: No acute cardiopulmonary findings. Left PICC in expected location. Dictated by: Kiana Dave M.D. on 05/02/2018 at 10:31 Approved by: Kiana Dave M.D. on 05/02/2018 at 10:31
[2018-05-02] MEDS: ENOXAPARIN 40 MG/0.4 ML SYRINGE SUBCUT (10:54)
[2018-05-02] MEDS: LORazepam 2 MG/ML SYRINGE 1 MG IV ×3 (10:54→22:56)
--- NOTE | 2018-05-02 12:04 | PM.PN.1 ---
Subjective Date Patient Seen: 05/02/18 Time Patient Seen: 12:04 Interval history: Patient had nausea this morning. She subsequently experienced a episode of significant emesis measuring 1000 cc approximately that was described as bilious in nature. Patient does not feel subjectively distended. She was passing a small amount of flatus earlier this morning. However, she has had no bowel movement since admission. Ambulating without difficulty. No subjective fever or chills. No chest pain or shortness of breath. She is having baseline incisional pain but denies any new significant abdominal pain. No dysuria or hematuria. Exam Vital Signs (past 8 hours): - 05/02/18 05:54 05/02/18 08:21 Temperature 98.2 F 96.1 F L Pulse Rate 83 83 Respiratory Rate 16 15 Blood Pressure 148/84 H 141/104 H Pulse Oximetry 94 96 Oxygen Delivery Method Room Air Oxygen Flow Rate 0 Narrative Exam Narrative: Remains afebrile with no tachycardia. Blood pressure mildly elevated this morning after the above episode but otherwise controlled on baseline antihypertensive. She is resting comfortably in bed at this point in no acute distress. Alert oriented x3. Regular rate and rhythm No wheezes or crackles Abdomen is soft and essentially nondistended. Examination is not drastically different than that seen yesterday. She is appropriately tender near the incision but certainly with no guarding or rebound. She is not tympanitic. Wound is clean, dry, and intact without erythema or ecchymosis. No drainage. No hematoma or seroma. Extremities show no clubbing or cyanosis Objective Labs Result Diagrams: 04/28/18 05:35 04/28/18 05:35 Labs: No new laboratory studies for review today I did obtain a three view abdominal x-ray series after the above episode emesis. I have personally reviewed those films. No free air. No pulmonary infiltrates. She does have air and stool throughout the colon which is not dilated. No air-fluid levels but there is dilated loops of small bowel in the mid abdomen and left upper quadrant consistent with ileus. I discussed this with the patient in detail. Assessment & Plan Plan: Assessment/Plan Narrative: 53-year-old female postoperative day 7 from exploratory laparotomy with extensive lysis of adhesions. She continues to struggle with postoperative ileus. Ileus is not unanticipated given the nature of her disease as well as the extent of her operation required. 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 We will make her NPO except sips of clears at this time. She has not had IV access for 2 or 3 days now, and she clearly requires such at the moment. Therefore PICC line will be placed. Start TPN since she has had no significant nutrition within the last 10-14 days. Check CBC, complete metabolic panel, magnesium, and phosphorus today. Otherwise continue to follow her clinically. She may ambulate and shower as tolerated. All the above discussed with her at length. Questions answered to her satisfaction, and she voiced understanding. Orders were written.
[2018-05-02] MEDS: LACTATED RINGERS 1,000 ML 60 ML IV (12:41)
[2018-05-02] MEDS: HYDROMORPHONE 1 MG INJ IV ×4 (13:00→22:56)
[2018-05-02 13:03] LABS: Add Manual Diff / Slide Review NO; Basophils Percent Auto 0.8 % (0-2); Eosinophils Percent Auto 2.2 % (2-4); Hematocrit 35.1 % (36-46); Hemoglobin 11.9 g/dL (12.0-16.0); Lymphocytes Percent Auto 20.9 % (25-40); Mean Corpuscular Hemoglobin 30.7 PG (26-34); Mean Corpuscular Volume 90.3 fL (80-100); Monocytes Percent Auto 8.2 % (3-14); Neutrophils Absolute Auto 5000 /uL (3000-5900); Neutrophils Percent Auto 67.9 % (50-75); Platelet Count 346 X10^3/uL (150-400); Red Blood Cell Count 3.88 X10^6/uL (4.0-5.2); Red Cell Distribution Width 12.7 % (11.6-14.8); White Blood Cell Count 7.4 X10^3/uL (4.5-11.0)
[2018-05-02 13:16] LABS: Alanine Aminotransferase 44 IU/L (9-52); Albumin Globulin Ratio 1.1 (1.0-2.8); Alkaline Phosphatase 60 U/L (38-126); Aspartate Aminotransferase 27 IU/L (14-36); BUN Creatinine Ratio 3.3 (6-22); Bilirubin Total 0.4 mg/dL (0.2-1.3); Blood Urea Nitrogen < 2 mg/dL (7-17); Calcium 8.7 mg/dL (8.4-10.2); Carbon Dioxide 33 mmol/L (22-32); Chloride 100 mmol/L (98-107); Estimated Glomerular Filt Rate > 60.0 mL/min (>60); Globulin 2.8 g/dL (1.7-4.1); Glucose 84 mg/dL (70-100); HEMOLYSIS < 15 (0-50); Magnesium 1.6 mg/dL (1.6-2.3); Phosphorous 4.7 mg/dL (2.5-4.5); Potassium 3.6 mmol/L (3.4-5.1); Sodium 142 mmol/L (137-145); Total Protein 5.8 g/dL (6.3-8.2)
--- NOTE | 2018-05-02 16:09 | PT.IPTN ---
Current Diagnoses Morbid (severe) obesity due to excess calories (04/21/18) Anxiety disorder, unspecified (04/21/18) Partial intestinal obstruction, unspecified as to cause (04/21/18) Unspecified intestinal obstruction, unspecified as to partial versus complete obstruction (04/21/18) Upper abdominal pain, unspecified (04/21/18) Nausea with vomiting, unspecified (04/21/18) Surgery Performed Operation Date: 04/25/18 16:00 Actual Procedures p Exploratory Laparotomy, small bowel obstruction, lysis of adhesions - Tate Levy MD Physical Therapy Treatment Note M2 PT-IP Current Condition Start: 04/26/18 11:16 Freq: NEEDED Status: Active Protocol: Document 04/29/18 16:43 NFW (Rec: 04/29/18 16:58 NFW [id number]) Physical Therapy Current Condition Current Condition Evaluation Date 04/26/18 Treatment Diagnosis small bowel obstruction; difficulty walking Onset Date 04/21/18 Precautions Abdominal Surgery Precautions Log Roll Lifting Restrictions Gait Belt above Incisional Area M3 PT-IP Subjective Start: 04/26/18 11:16 Freq: NEEDED Status: Active Protocol: Document 05/02/18 16:07 LJ (Rec: 05/02/18 16:09 LJ [id number]) Subjective Physical Therapy Visit Type Type Patient Refusal Physical Therapy Visit Comments Patient Comments Ptjust repositioned in bed. States she is too tired to get up. States she has been up several times and she [facility] M4 PT-IP Mobility and Gait Start: 04/26/18 11:16 Freq: NEEDED Status: Active Protocol: Document 05/01/18 15:05 CLB (Rec: 05/01/18 15:35 CLB [id number]) PT-Transfer Assessment Sit to and From Stand Sit to and from Stand Standby Assistance Equipment Transfer Assistive Device Gait Belt Orthotic/Prosthetic Devices or Brace: No Transfers Transfer Destination Chair Gait Assessment Gait Gait Assistance Required: Standby Assistance Distance (Feet) 500 Assistive Devices Assistive Device Gait Belt Orthotic/Prosthetic Devices or Brace: No Gait Deviations General Gait Pattern Decreased Feet Clearance Factors Limiting Gait Function Factors Limiting Gait Function Decreased Activity Tolerance Decreased Strength Pain Comments Gait Comments Pt able to ambulate CGA then SBA w/o AD ~500ft. Pt continues to demomstrate good safety awareness. Stair Climbing Assessment Evaluation Level of Assist On Stairs Standby Assistance Devices Stair Climbing Assistive Devices Right Railing Technique/Endurance Stair Climbing Direction Ascend and Descend Stair Climbing Technique Step Over Step Step to Step Number of Steps Climbed 3 Query Text: Stair Climbing Set # Repetitions (reps) 2 Comments Stair Climbing Comments Pt demonstrated good tolerance with stairs using step over step up stairs and step to step down stairs. M5 PT-IP Objective Assessments Start: 04/26/18 11:16 Freq: NEEDED Status: Active Protocol: Document 04/26/18 11:15 (Rec: 04/26/18 12:24 [id number]) Orientation Orientation/Cognition Level of Alertness Alert Orientation Name Birthday Place Situation Language Function Ability No Deficits Noted Safety Awareness Decreased Safety Awareness Comments Pt slow to respond and appearing sleepy. She is cooperative however, and does respond appropriately to cues and directions. Strength Lower Extremity Strength Assessment Bilaterally Impaired Comments Strength Comments BLE grossly 4/5 M6 PT-IP Treatment Start: 04/26/18 11:16 Freq: NEEDED Status: Active Protocol: Document 04/29/18 16:43 NFW (Rec: 04/29/18 16:58 NFW [email or web address]) Physical Therapy Treatment Other Treatments Other Treatment Performed Review log rolling. M7 PT-IP Assessment and Plan Start: 04/26/18 11:16 Freq: NEEDED Status: Active Protocol: Document 05/01/18 15:05 CLB (Rec: 05/01/18 15:35 CLB [id number]) PT Summary Assessment and Plan Summary Progress Towards Goals Progressing Toward Goals Assessment Summary Pt trialed ambulation w/o AD with CGA then SBA, pt successfully trialed stairs SBA. Pt seems able to d/c home with assist when medically stable. Goals Bed Mobility Goal Standby Assistance Transfer Goal Standby Assistance Front Wheeled Walker Gait Goal Standby Assistance Front Wheel Walker Gait Distance 150 Other Goals Ambulate 150 ft SBA with least restrictive or no AD. Up/down 3 steps R rail CGA as needed for safe access to home . Up/down 12 steps R rail CGA as needed/desired by pt to access 2nd floor (her bedroom is there, but she is willing to arrange to sleep on 1st floor) Days to Meet Goals 5 Frequency of Treatment Frequency Of Treatment Once a Day Treatment Plan Physical Therapy Treatment Plan Bed Mobility Training Transfer Training Gait Training Therapeutic Exercise Balance Retraining Post Op Education Discharge Planning Hot or Cold Pack Neuromuscular Re-ed Coordination Retraining Manual Therapy Recommendations To Nursing Amount of Assist Needed 1 Person Assist Discharge Recommendations PT Discharge Recommendations Home with 02/01 Assist Home Health
[2018-05-02] MEDS: AA 5 %/CALCIUM/LYTES/DEXT 20 % 1,000 ML with MULTIVITAMIN 10 ML, TRACE ELEMENTS 1 ML 42.125 ML IV (18:08)
[2018-05-02] MEDS: FAT EMULSIONS 50 GM/250 ML EMULSION IV (18:11)
[2018-05-02] MEDS: DOCUSATE 100 MG CAPSULE PO (20:04)
[2018-05-02] MEDS: SENNOSIDES 8.6 MG TABLET PO (20:04)
[2018-05-03] VITALS: BP 132/81; PULSE 77; RESP 15; TEMP 36.8; O2SAT 92
[2018-05-03] MEDS: LACTATED RINGERS 1,000 ML 60 ML IV (05:04)
[2018-05-03 06:00] VITALS: BP 126/79; PULSE 79; RESP 16; TEMP 36.7; O2SAT 94
[2018-05-03] MEDS: HYDROMORPHONE 1 MG INJ IV ×4 (06:28→20:19)
[2018-05-03 08:00] VITALS: BP 137/70; PULSE 72; RESP 16; TEMP 36.8; O2SAT 96
[2018-05-03] MEDS: ENOXAPARIN 40 MG/0.4 ML SYRINGE SUBCUT (09:18)
--- NOTE | 2018-05-03 09:51 | PT.IPTN ---
Current Diagnoses Morbid (severe) obesity due to excess calories (04/21/18) Anxiety disorder, unspecified (04/21/18) Partial intestinal obstruction, unspecified as to cause (04/21/18) Unspecified intestinal obstruction, unspecified as to partial versus complete obstruction (04/21/18) Upper abdominal pain, unspecified (04/21/18) Nausea with vomiting, unspecified (04/21/18) Surgery Performed Operation Date: 04/25/18 16:00 Actual Procedures p Exploratory Laparotomy, small bowel obstruction, lysis of adhesions - Tate Levy MD Physical Therapy Treatment Note M2 PT-IP Current Condition Start: 04/26/18 11:16 Freq: NEEDED Status: Active Protocol: Document 04/29/18 16:43 NFW (Rec: 04/29/18 16:58 NFW [email or web address]) Physical Therapy Current Condition Current Condition Evaluation Date 04/26/18 Treatment Diagnosis small bowel obstruction; difficulty walking Onset Date 04/21/18 Precautions Abdominal Surgery Precautions Log Roll Lifting Restrictions Gait Belt above Incisional Area M3 PT-IP Subjective Start: 04/26/18 11:16 Freq: NEEDED Status: Active Protocol: Document 05/03/18 09:27 [facility] (Rec: 05/03/18 09:51 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 (Rec: 05/03/18 09:51 [facility] [email or web address]) PT-Bed Mobility Assessment Rolling Type of Rolling Log Rolling Level of Assist Independent Supine to Sit Supine to Sit Independent Sit to Supine Sit to Supine Independent Scooting Scooting to Edge of Bed Independent PT-Transfer Assessment Sit to and From Stand Sit to and from Stand Independent Equipment Transfer Assistive Device None Transfer Ability Level of Assist Independent Comments Mobility Comments Pt stood from chair and bed indep and safely. Able to toilet herself independently Gait Assessment Gait Gait Assistance Required: Independent Distance (Feet) 400 Assistive Devices Assistive Device None Orthotic/Prosthetic Devices or Brace: No Gait Deviations General Gait Pattern Within Normal Limits Comments Gait Comments Pt amb 400ft with no loss of balance and no evidence for imbalance. She was able to do stairs SBA yesterday and has no concerns for home. PT-Balance Assessment Sitting Balance and Reactions Static Sitting Balance Ability Normal Dynamic Sitting Balance Ability Normal Standing Balance and Reactions Static Standing Balance Ability Normal Dynamic Standing Balance Ability Normal Functional Assessments Functional Tests Tinetti Balance and Gait Assessment 28/28 M5 PT-IP Objective Assessments Start: 04/26/18 11:16 Freq: NEEDED Status: Active Protocol: Document 05/03/18 09:27 [facility] (Rec: 05/03/18 09:51 [facility] [id number]) Orientation Orientation/Cognition Level of Alertness Alert Strength Lower Extremity Strength Assessment Within Functional Limits M6 PT-IP Treatment Start: 04/26/18 11:16 Freq: NEEDED Status: Active Protocol: Document 05/03/18 09:27 [facility] (Rec: 05/03/18 09:51 [facility] [id number]) Physical Therapy Treatment Education Education Provided Safety M7 PT-IP Assessment and Plan Start: 04/26/18 11:16 Freq: NEEDED Status: Active Protocol: Document 05/03/18 09:27 [facility] (Rec: 05/03/18 09:51 [facility] [id number]) PT Summary Assessment and Plan Summary Progress Towards Goals Goals Met Assessment Summary Pt is safe with her mobility to be independent in her room and is able to unplug her IV safely and move it in her room while amb safely. Pt scored 28/28 on tinnetti and is now d /c from PT to be indep with mobility. Educated on safety that if she feels unwell or dizzy or is having difficulty with any task, to call for assistance and pt is very agreeable. Frequency of Treatment Frequency Of Treatment Discharge Recommendations To Nursing Amount of Assist Needed Independent Discharge Recommendations PT Discharge Recommendations Home with Assistance
--- NOTE | 2018-05-03 13:40 | CM.DPNOTE ---
DCP/continued: Reviewed chart. Patient currently LOS day#12. Per MD, notes patient with postoperative ileus. PICC line placed to start TPN on 05-02-18. Patient remains NPO secondary to n/v. Dr. Levy following. P: CM team to follow closely if d/c needs arise. Anticipate home when medically stable. At this time d/c date unknown. BRENDAN Lan Discharge Planning/Care Management CM Discharge Assessment Start: 04/22/18 10:21 Freq: Status: Active Protocol: Document 04/22/18 10:21 BF (Rec: 04/22/18 10:25 BF [id number]) Discharge Planning Assessment Assigned Center Administrator Brooke, MSW DPOA/Assigned Designee Name none Advance Directives? No Advance Directives on File No History Provided By Patient Medical Record Has Patient been admitted in last 30 No days? Prior Living Arrangements House Household Members significant other family Comment Patient lives with her life partner of 23 years and recently her grandkids moved in with them. Type of transporation used prior to Drives own vehicle admit Independent with ADL's Yes Is patient alert and oriented? Yes Caregiver for Another Yes: malinda moved in with the pt and LP Comment Likely home with family when medically stable Barriers to Discharge Yes Comment Patient confirms that she does not have medical insurance but is interested in enrolling Discharge Plan Home Transportation Arrangement Significant other likely can provide transport at d/c. Referrals Initiated None needed Whiteboard Updated in Patient Room with Yes name and ext. # of Center Administrator Review Status In Process Please Provide Date Initial DC 04/22/18 Assessment Was Performed Next Review Type Continued Stay Review Document 04/29/18 15:09 KJS (Rec: 04/29/18 15:16 KJS [id number]) Discharge Planning Assessment Assigned Center Administrator Brooke, MSW DPOA/Assigned Designee Name none Advance Directives? No Advance Directives on File No History Provided By Patient Medical Record Has Patient been admitted in last 30 No days? Prior Living Arrangements House Household Members significant other family Comment Patient lives with her life partner of 23 years and recently her grandkids moved in with them. Type of transporation used prior to Drives own vehicle admit Independent with ADL's Yes Is patient alert and oriented? Yes Caregiver for Another Yes: malinda moved in with the pt and LP Comment Likely home with family when medically stable Barriers to Discharge Yes Comment Patient confirms that she does not have medical insurance but is interested in enrolling Discharge Plan Home Transportation Arrangement Significant other likely can provide transport at d/c. Referrals Initiated None needed Whiteboard Updated in Patient Room with Yes name and ext. # of Center Administrator Review Status In Process Please Provide Date Initial DC 04/22/18 Assessment Was Performed Next Review Type Continued Stay Review 04/29/18 15:09 CM Disc. Plan Continued by Andreia Skinner DCP/continued: Briefly reviewed note. Patient ambulated with PT on 04-28-18. Current recommendation is home with 24/7 and/or possibly home health. Notes report patient progressing. Per notes, attending is hospitalist but in AM rounds Dr. Vick reports signing off. UR/RN updated. P: CM team to follow closely for d/c planning needs. BRENDAN Lan Initialized on 04/29/18 15:09 - END OF NOTE
--- NOTE | 2018-05-03 14:03 | PM.PN.1 ---
Subjective Date Patient Seen: 05/03/18 Time Patient Seen: 14:03 Interval history: Denies any further nausea and vomiting. Passing small amount of flatus only but still no stool. No dysuria or hematuria. Ambulating without issue or significant pain. Remains on TPN. Good pain control. She is mildly upset about missing the hol with her family at home. Denies chest pain or shortness of breath. Otherwise she feels as if she is slowly improving. Exam Vital Signs (past 8 hours): - 05/03/18 08:00 Temperature 98.3 F Pulse Rate 72 Respiratory Rate 16 Blood Pressure 137/70 Pulse Oximetry 96 Oxygen Delivery Method Nasal Cannula Oxygen Flow Rate 0 Narrative Exam Narrative: Patient lying comfortably in bed in no acute distress. Alert oriented x3. Chest clear to auscultation bilaterally with regular rate and rhythm Abdomen is soft and no significant distention. She has a few hypoactive bowel sounds. Not tympanitic. Minimally tender to palpation. No guarding or rebound. Wound is clean, dry, and intact. No erythema or ecchymosis. No drainage. Extremities show no clubbing or cyanosis Objective Labs Result Diagrams: 05/02/18 12:50 05/02/18 12:00 Labs: No new laboratory or radiographic studies for review Assessment & Plan Plan: Assessment/Plan Narrative: 53-year-old female postoperative day 8 from laparotomy with lysis of adhesions for bowel obstruction complicated by postoperative ileus now slowly resolving. However, she still has not had a bowel movement for nearly 2 weeks. I will allow her clear liquid diet again. Continue TPN for now for nutritional support. Assist bowel function with milk of magnesia. She remains on Colace and Senokot. Repeat basic metabolic panel tomorrow since she is on TPN. Continue ambulation and shower as desired. Once her ileus has completely resolved and she has consistent bowel function then we can consider discharge to home at that time. All the above discussed with the patient in detail. Questions were answered to her satisfaction, and she voiced understanding. Orders were written.
[2018-05-03] MEDS: MAGNESIUM HYDROXIDE 30 ML UDC PO (14:50)
[2018-05-03 15:46] VITALS: BP 157/87; PULSE 82; RESP 16; TEMP 37.1; O2SAT 94
[2018-05-03] MEDS: AA 5 %/CALCIUM/LYTES/DEXT 20 % 1,000 ML with MULTIVITAMIN 10 ML, TRACE ELEMENTS 1 ML 42.125 ML IV (18:14)
[2018-05-03] MEDS: FAT EMULSIONS 50 GM/250 ML EMULSION IV (18:14)
[2018-05-03] MEDS: LORazepam 2 MG/ML SYRINGE 1 MG IV (18:14)
[2018-05-03 19:48] VITALS: BP 152/84; PULSE 84; RESP 15; TEMP 36.7; O2SAT 93
[2018-05-03] MEDS: SENNOSIDES 8.6 MG TABLET PO (20:20)
[2018-05-03] MEDS: DOCUSATE 100 MG CAPSULE PO (20:20)
--- NOTE | 2018-05-04 | DI.RAD.S_ITS ---
PROCEDURE: XR ABDOMEN 3V INDICATIONS: persistent vomiting after laparotomy TECHNIQUE: One view chest and two views of the abdomen were acquired. COMPARISON: Merged With [facility], CR, XR ABDOMEN MIN 2V, 04/28/2018, 14:30. FINDINGS: Surgical changes and devices: Enteric surgical clips are not seen but cutaneous clips are found along the lower abdomen/pelvis near the midline.. Chest: Lungs are clear. Heart size is normal. No pleural effusions. No pneumoperitoneum. Abdomen: Bowel gas pattern is nonspecific, with only a small degree of mild prominence of the small bowel loops over the mid abdomen. There is moderate colonic constipation. No suspicious calcifications. Visualized solid organ contours appear normal. Bones: No suspicious bony lesions. IMPRESSION: No definite intestinal obstruction or perforation found. Colonic obstipation. Slight prominence of several small bowel loops over the mid abdomen but without reaching a size criteria for a true distention. This may represent ileus in the setting of recent surgery. Dictated by: Delroy Flores M.D. on 05/04/2018 at 14:23 Approved by: Delroy Flores M.D. on 05/04/2018 at 14:24
[2018-05-04 00:06] VITALS: BP 145/76; PULSE 79; RESP 18; TEMP 36.6; O2SAT 95
[2018-05-04] MEDS: HYDROMORPHONE 1 MG INJ IV ×4 (04:23→17:13)
[2018-05-04 06:00] VITALS: BP 152/81; PULSE 75; RESP 16; TEMP 36.8; O2SAT 92
[2018-05-04 06:10] LABS: Blood Urea Nitrogen 6 mg/dL (7-17); Calcium 8.1 mg/dL (8.4-10.2); Carbon Dioxide 33 mmol/L (22-32); Chloride 101 mmol/L (98-107); Estimated Glomerular Filt Rate > 60.0 mL/min (>60); Glucose 115 mg/dL (70-100); HEMOLYSIS < 15 (0-50); Potassium 3.5 mmol/L (3.4-5.1); Sodium 140 mmol/L (137-145)
--- NOTE | 2018-05-04 06:54 | PC.NURSE ---
Slept most of the shift, medicated x1 with Dilaudid 1 mg. IVP @ 0423. Did not C/O nausea, no BM this shift. Will cont. POC & monitor.
[2018-05-04 08:00] VITALS: BP 156/96; PULSE 82; RESP 18; TEMP 36.8; O2SAT 96
[2018-05-04] MEDS: DOCUSATE 100 MG CAPSULE PO (08:43)
[2018-05-04] MEDS: ENOXAPARIN 40 MG/0.4 ML SYRINGE SUBCUT (08:43)
--- NOTE | 2018-05-04 10:27 | PM.PN.1 ---
Subjective Date Patient Seen: 05/04/18 Time Patient Seen: 10:27 Interval history: Denies pain. No nausea or vomiting. Appetite is returning. She would like regular food today. In particular she is craving tuna. No subjective fever or chills. No chest pain or shortness of breath. Passing flatus but no bowel movement for 2 weeks now. Does not feel subjectively distended however. Ambulating without difficulty. Exam Vital Signs (past 8 hours): - 05/04/18 06:00 05/04/18 08:00 Temperature 98.3 F 98.3 F Pulse Rate 75 82 Respiratory Rate 16 18 Blood Pressure 152/81 H 156/96 H Pulse Oximetry 92 96 Oxygen Delivery Method Nasal Cannula Oxygen Flow Rate 0 Narrative Exam Narrative: Remains afebrile and otherwise completely hemodynamically stable. Some diastolic hypertension but she has been off of her lisinopril. Chest clear auscultation bilaterally. No crackles or wheezes Abdomen is soft and completely nondistended. She is minimally tender at the incision only. No guarding or rebound. No masses. She is not tympanitic. Incision is clean, dry, and intact without erythema, ecchymosis, or drainage Extremities show no clubbing or cyanosis Objective Labs Result Diagrams: 05/02/18 12:50 05/04/18 05:33 Labs: Laboratory Results - last 24 hr 05/04/18 05:33 Sodium 140 Potassium 3.5 Chloride 101 Carbon Dioxide 33 H BUN 6 L Creatinine 0.50 L Estimated GFR > 60.0 BUN/Creatinine Ratio 12.0 Glucose 115 H Calcium 8.1 L Significant only for mild hypokalemia today Assessment & Plan Plan: Assessment/Plan Narrative: 53-year-old female postoperative day 9 from laparotomy with lysis of adhesions complicated by prolonged postoperative ileus now slowly resolving. She tolerated clear liquid diet yesterday. Will advance to regular diet today. Restart lisinopril. Assist bowel function with more aggressive regimen today consisting of twice daily milk of magnesia and lactulose. I am concerned that she may develop a fecal impaction since it has been so long from prior bowel function. Otherwise she overall is doing quite well clinically. Continue TPN 1 more day with additional potassium. I doubt the hypokalemia is contributing to the prolonged ileus but we will supplement as above. If she otherwise does well over the next 24 hr or so then she could potentially be discharged home once she is having consistent bowel function. I discussed this with her today in detail. All questions were answered to her satisfaction, and she voiced understanding. Orders were written.
[2018-05-04 11:41] VITALS: BP 161/94; PULSE 87; RESP 16; TEMP 37; O2SAT 94
--- NOTE | 2018-05-04 11:46 | PM.CHAP ---
Good visit with Carol. Many concerns re grandchildrren who live with them. May become legal and or adoptive parents in future due to parents inability to parent them properly. Patient asked for prayer. Hoping to return home soon. (Juan)
[2018-05-04] MEDS: LISINOPRIL 10 MG TABLET PO (11:47)
[2018-05-04] MEDS: LACTULOSE 20 GM/30 ML SOLUTION 10 GM PO (11:48)
--- NOTE | 2018-05-04 13:50 | PC.NURSE ---
1300- Pt had a large emesis after eating her lunch. Called and he just ordered some abdominal films for pt. She states that she does not feel nauseous after this happened. She is resting now. Xray will be up shortly to get patient.
[2018-05-04] MEDS: MAGNESIUM HYDROXIDE 30 ML UDC PO (14:19)
[2018-05-04] MEDS: LORazepam 2 MG/ML SYRINGE 1 MG IV ×2 (14:25→20:40)
[2018-05-04 17:01] VITALS: BP 149/97; PULSE 89; RESP 17; TEMP 37; O2SAT 95
--- NOTE | 2018-05-04 17:20 | PC.NURSE ---
Addendum entered by Madison Vázquez R.N. 05/04/18 20:23: pt remains very anxious/tearful about having NG placed (would be 4th one for this admission). still prefers to wait to talk to Dr. Levy befor having it inserted. MD notified and will not be able to come to bedside until the morning. pt updated and still prefers to wait until the mroning for dr. Levy. verbalized understanding of NPO status and to notify staff immediately if she becomes nauseated. PRN ativan administered. call light within reach Original Note: SHIFT NOTE Received pt sleeping. per previous shift RN report, pt had a very emotional day today and was tearful for most of the day. pt allowed uninterrupted rest. received call from Dr. Levy to insert another NG tube due to worsening imaging results. pt updated on plan of care and very tearful. pt prefers to wait to see/talk to Dr. Levy before having NG inserted. midline abdominal incision with boyd, FRANKI. pt denies any nausea currently, reports no BM but positive flatus. bowel sounds hypoactive. pt independent of ADLs in room. call light within reach.
[2018-05-04] MEDS: AA 5 %/CALCIUM/LYTES/DEXT 20 % 1,000 ML with MULTIVITAMIN 10 ML, TRACE ELEMENTS 1 ML, P... 43.375 ML IV (18:12)
[2018-05-04] MEDS: FAT EMULSIONS 50 GM/250 ML EMULSION IV (18:12)
[2018-05-04 20:30] VITALS: BP 161/86; PULSE 88; RESP 19; TEMP 36.9; O2SAT 95
[2018-05-04] MEDS: SODIUM CHLORIDE 0.9% FLUSH 10 ML IV (20:40)
[2018-05-05] VITALS (7 sets, daily range): BP systolic 125–159; BP diastolic 69–95; PULSE 78–85; RESP 16–20; TEMP 36.6–36.8; O2SAT 93–96
--- NOTE | 2018-05-05 | DI.RAD.S_ITS ---
PROCEDURE: FL SMALL BOWEL FOLLOW THROUGH INDICATIONS: gastrograffin small bowel follow through COMPARISON: [facility], CR, XR ABDOMEN 3V, 05/04/2018, 13:46. [facility], CR, XR ACUTE ABDOMEN SERIES, 05/02/2018, 8:51. [facility], CT, CT ABDOMEN PELVIS W CON, 04/22/2018, 18:29. FINDINGS: Small bowel: There is delay transit time of barium through the small bowel. Mildly distended small bowel loops are present within the mid and left abdomen. Colon is nondistended. IMPRESSION: No significant change in mild small bowel distention, consistent with partial small bowel obstruction. Dictated by: Elif Peña M.D. on 05/05/2018 at 11:34 Approved by: Elif Peña M.D. on 05/05/2018 at 11:35
[2018-05-05] MEDS: SODIUM CHLORIDE 0.9% FLUSH 10 ML IV ×2 (00:47→03:47)
[2018-05-05] MEDS: LORazepam 2 MG/ML SYRINGE 1 MG IV ×4 (00:47→18:19)
[2018-05-05] MEDS: HYDROMORPHONE 1 MG INJ IV ×3 (03:47→19:40)
--- NOTE | 2018-05-05 04:39 | PC.NURSE ---
Shift: Pt reports increasing anxiety with the order for placement of what would be 4th NG tube for this hospitalization. Medicated for anxiety per MAR and pain. Pt passed first stool since initial hospitalization on 04/21/18, moderate in size and formed, and denies nausea on shift.
[2018-05-05] MEDS: DOCUSATE 100 MG CAPSULE PO (09:09)
[2018-05-05] MEDS: ENOXAPARIN 40 MG/0.4 ML SYRINGE SUBCUT (09:11)
[2018-05-05] MEDS: LISINOPRIL 10 MG TABLET PO (09:12)
--- NOTE | 2018-05-05 09:33 | PM.PN.1 ---
Subjective Date Patient Seen: 05/05/18 Time Patient Seen: 09:34 Interval history: No further nausea or vomiting since lunch yesterday but she has been NPO except ice chips. She has refused her nasogastric tube reinsertion. I discussed this with her today, but she is quite anxious about having the tube replaced. I understand her reluctance to do so. She otherwise denies any abdominal pain. She is passing a small amount of flatus. She has passed a small hard bowel movement earlier this morning. No dysuria hematuria. No chest pain or shortness of breath. No subjective fever or chills. Exam Vital Signs (past 8 hours): - 05/05/18 03:55 05/05/18 07:40 Temperature 98.2 F 97.9 F Pulse Rate 82 78 Respiratory Rate 18 18 Blood Pressure 149/94 H 151/91 H Pulse Oximetry 93 96 Oxygen Delivery Method Nasal Cannula Oxygen Flow Rate 0 Narrative Exam Narrative: She remains afebrile and otherwise hemodynamically stable but her diastolic blood pressure remains elevated since we are unable to give her her usual dose of lisinopril orally. No crackles or wheezes. Regular rate and rhythm. Lungs clear. Abdomen remains soft and minimally distended. Not particularly tympanitic. Wound is clean, dry, and intact. She is minimally tender without guarding or rebound. Objective Labs Result Diagrams: 05/02/18 12:50 05/04/18 05:33 Labs: No new laboratory or radiographic studies for review today Assessment & Plan Plan: Assessment/Plan Narrative: 53-year-old female now postoperative day 10 from exploratory laparotomy with extensive lysis of adhesions complicated by prolonged postoperative ileus. She has failed trials of oral intake on at least 2 occasions now. She will remain on TPN. Repeat laboratory studies tomorrow. Despite my recommendations for NG tube replacement she refuses. Obviously I will respect her decision. She understands the risk involved potential intractable nausea, vomiting, and even aspiration. Fortunately she seems to be doing well without vomiting while being NPO. I will attempt to have her drink Gastrografin contrast to obtain small-bowel follow-through with serial x-rays today. I reiterated that if she fails to tolerate the contrast orally and continues to have vomiting then we would really have no choice but to reinsert the NG tube. She seemed amenable to this idea currently. We will therefore continue current care and attempt the radiographic study as above today. Proceed based on those findings. All questions were answered to her satisfaction, and she voiced understanding. Orders were written.
--- NOTE | 2018-05-05 10:14 | PC.NURSE ---
Pt reported having an anxiety attack at around 0900. Given ativan and stayed with pt to discuss concerns. States she was just recently diagnosed with anxiety disorder with panic attacks and sees a counselor. A few months ago, she and her were given custody of her grandchildren with CPS involvement which has added some stress to her life. Overall feels committed to this process and believes they are doing are great job. She is wanting to heal and get back to her family. Appeared calmer after discussion about current stressors and how to manage these. Gastrograffin study ordered for the am and evaristo Leblanc is working with her and plans to do this in her room after the contrast has been taken Pt is able to tolerate the contrast with no signs of nausea so far.
[2018-05-05] MEDS: METOCLOPRAMIDE 10 MG/2 ML INJ IV (17:58)
[2018-05-05] MEDS: AA 5 %/CALCIUM/LYTES/DEXT 20 % 1,000 ML with MULTIVITAMIN 10 ML, TRACE ELEMENTS 1 ML, P... 43.375 ML IV (17:58)
[2018-05-05] MEDS: FAT EMULSIONS 50 GM/250 ML EMULSION IV (17:58)
--- NOTE | 2018-05-05 18:33 | PC.NURSE ---
Addendum entered by Eva Spear R.N. 05/05/18 22:53: 1940: Pt reports pain 6/10, medicated. PICC dressing needs to be changed/pt notified, but having pain and unable to roll to back. Informed pt that it would need to be changed before end of shift/agreeable. 2199: Pt resting well after pain med given, allowed to sleep. 2229: Spoke with NOC shift RNs and orientee would like to change PICC dressing. Original Note: Pt up to BR, large liquid BM, then showered. A/O, denies pain, reports anxiety and ativan given. Abd soft/tender, BT/flatus+. Denies nausea. New TPN/lipids bag infusing. Using call light appropriately.
--- NOTE | 2018-05-06 | DI.RAD.S_ITS ---
PROCEDURE: XR ABDOMEN MIN 2V INDICATIONS: ileus TECHNIQUE: 2 views of the abdomen were acquired. COMPARISON: [facility], , XR ABDOMEN 3V, 05/04/2018, 13:46. FINDINGS: Surgical changes and devices: None. Bowel: No pneumoperitoneum. Contrast is noted throughout the colon extending to the rectum. There remains minimal prominence of small bowel loops. Soft tissues: No masses; visualized solid organ contours appear normal in size. No suspicious abdominal calcifications. Bones: No suspicious bony abnormalities. IMPRESSION: Contrast is present throughout the colon extending to the rectum. There remains minimal to mild prominence of small bowel loops within the central abdomen. Persistent ileus versus minimal partial small bowel obstruction. Dictated by: Kristin Benton M.D. on 05/06/2018 at 8:29 Approved by: Kristin Benton M.D. on 05/06/2018 at 8:32
[2018-05-06] MEDS: METOCLOPRAMIDE 10 MG/2 ML INJ IV ×4 (01:23→17:55)
[2018-05-06] MEDS: HYDROMORPHONE 1 MG INJ IV ×5 (01:30→22:17)
[2018-05-06 03:00] VITALS: BP 116/63; PULSE 74; RESP 18; TEMP 36.6; O2SAT 94
[2018-05-06] MEDS: SODIUM CHLORIDE 0.9% FLUSH 10 ML IV (05:44)
[2018-05-06 06:15] LABS: Add Manual Diff / Slide Review NO; Basophils Percent Auto 0.6 % (0-2); Eosinophils Percent Auto 3.3 % (2-4); Hematocrit 35.1 % (36-46); Hemoglobin 11.9 g/dL (12.0-16.0); Lymphocytes Percent Auto 22.2 % (25-40); Mean Corpuscular HGB Conc 33.8 % (30-36); Mean Corpuscular Hemoglobin 30.8 PG (26-34); Mean Corpuscular Volume 91.2 fL (80-100); Monocytes Percent Auto 8.6 % (3-14); Neutrophils Absolute Auto 4100 /uL (3000-5900); Neutrophils Percent Auto 65.3 % (50-75); Platelet Count 310 X10^3/uL (150-400); Red Blood Cell Count 3.85 X10^6/uL (4.0-5.2); Red Cell Distribution Width 13.3 % (11.6-14.8); White Blood Cell Count 6.3 X10^3/uL (4.5-11.0)
[2018-05-06 06:43] LABS: Blood Urea Nitrogen 9 mg/dL (7-17); Calcium 8.4 mg/dL (8.4-10.2); Carbon Dioxide 30 mmol/L (22-32); Chloride 102 mmol/L (98-107); Estimated Glomerular Filt Rate > 60.0 mL/min (>60); Glucose 106 mg/dL (70-100); HEMOLYSIS < 15 (0-50); Magnesium 2.1 mg/dL (1.6-2.3); Phosphorous 4.4 mg/dL (2.5-4.5); Potassium 4.1 mmol/L (3.4-5.1); Sodium 139 mmol/L (137-145)
[2018-05-06 07:16] VITALS: BP 119/76; PULSE 76; RESP 16; TEMP 36.4; O2SAT 96
[2018-05-06] MEDS: ENOXAPARIN 40 MG/0.4 ML SYRINGE SUBCUT (09:25)
[2018-05-06] MEDS: LISINOPRIL 10 MG TABLET PO (09:25)
[2018-05-06] MEDS: DOCUSATE 100 MG CAPSULE PO ×2 (09:25→22:17)
[2018-05-06] MEDS: LORazepam 2 MG/ML SYRINGE 1 MG IV ×2 (09:26→16:23)
--- NOTE | 2018-05-06 10:57 | PC.NURSE ---
Day shift 929: Pt assessed. A/Ox4 Resting in bed. Pt reports 01/19 anxiety. Ativan given, anxiety now 10/19. Pt SBA to bathroom. Incision c/d/i open to air. boyd intact.
[2018-05-06 11:55] VITALS: BP 138/77; PULSE 88; RESP 17; TEMP 36.3; O2SAT 96
--- NOTE | 2018-05-06 13:15 | P.PN_ITS ---
Subjective Date Patient Seen: 05/06/18 Time Patient Seen: 13:11 Interval history: Patient without any new specific complaints. She just completed a visit with her family including children. She is in better spirits this morning. Still having intermittent anxiety which is not unanticipated given her known anxiety disorder. Feels that her anxiety is controlled with Ativan. She is not having any real significant pain other than mild abdominal pain around the incision. Denies any further nausea or vomiting since drinking the Gastrografin contrast yesterday. Tolerating clear liquids. She is having some flatus and liquid bowel movements following the small-bowel follow-through yesterday. Does not feel subjectively distended. No complaints of fever, chills, chest pain, or shortness of breath. Exam Vital Signs (past 8 hours): - 05/06/18 07:16 05/06/18 11:55 Temperature 97.6 F 97.4 F L Pulse Rate 76 88 Respiratory Rate 16 17 Blood Pressure 119/76 138/77 Pulse Oximetry 96 96 Oxygen Delivery Method Room Air Oxygen Flow Rate 0 Narrative Exam Narrative: Patient resting comfortably in bed in no acute distress. She was ambulating about the room earlier today. Alert oriented x3 Chest clear to auscultation bilaterally with regular rate rhythm Abdomen shows more active bowel sounds today. She is mildly tympanitic in the epigastrium however. Does not appear to be distended. She is minimally tender at the incision and essentially nontender elsewhere. No guarding or rebound. Wound is clean, dry, and intact without erythema or drainage. Extremities show no clubbing, cyanosis, or edema Objective Labs Result Diagrams: 05/06/18 05:30 05/06/18 05:30 Labs: Laboratory Results - last 24 hr 05/06/18 05/06/18 05:30 05:30 WBC 6.3 RBC 3.85 L Hgb 11.9 L Hct 35.1 L MCV 91.2 MCH 30.8 MCHC 33.8 RDW 13.3 Plt Count 310 Neut % (Auto) 65.3 Lymph % (Auto) 22.2 L [place] % (Auto) 8.6 Eos % (Auto) 3.3 Baso % (Auto) 0.6 Neut # (Auto) 4100 Sodium 139 Potassium 4.1 Chloride 102 Carbon Dioxide 30 BUN 9 Creatinine 0.50 L Estimated GFR > 60.0 BUN/Creatinine Ratio 18.0 Glucose 106 H Calcium 8.4 Phosphorus 4.4 Magnesium 2.1 I have personally reviewed her two view abdominal x-ray from this morning. Contrast has traveled through the small bowel into the entire colon. There is contrast to the rectum. No free air. However, she continues to have some mildly dilated small bowel loops in the central portion of the abdomen with small air-fluid level. Assessment & Plan Plan: Assessment/Plan Narrative: 53-year-old female postoperative day 11 from laparotomy with lysis of adhesions. Unfortunately, she continues to have issues with prolonged postoperative ileus. This appears to be slightly resolved based on her clinical progress, passage of bowel movement after contrast, and clinical examination. However, she still has radiographic evidence of dilated small bowel consistent with ileus. She has failed 2 previous trials to advance her diet under the circumstances. I will therefore continue the TPN and lipids today. Continue clear liquids for now. If she continues to have bowel function including both flatus and stool then I will advance her to a full liquid diet. Continue intravenous Reglan scheduled. Her laboratories are otherwise unremarkable and there is no evidence of any infectious or other complications. I discussed all this with her in detail. Questions were answered to her satisfaction, and she voiced understanding. Orders were written.
[2018-05-06 15:00] VITALS: BP 146/78; PULSE 79; RESP 20; TEMP 37.1; O2SAT 95
[2018-05-06] MEDS: FAT EMULSIONS 50 GM/250 ML EMULSION IV (17:58)
[2018-05-06] MEDS: AA 5 %/CALCIUM/LYTES/DEXT 20 % 1,000 ML with MULTIVITAMIN 10 ML, TRACE ELEMENTS 1 ML, P... 43.375 ML IV (17:59)
[2018-05-06 19:00] VITALS: BP 148/88; PULSE 81; RESP 17; TEMP 37.1; O2SAT 92
--- NOTE | 2018-05-06 19:09 | PC.NURSE ---
1500- assumed care of pt from outgoing shift. potter in and removed pt boyd. replaces with steri strips. Pt tolerated ok. given prns as requested. pt ate a few bites of jello, was on the phone texting and pt check completed and pt was crying. asked what happened and pt stated that she just wanted to be home with her kids that she missed them. encouraged her to call them and invite them in. that older family members could spend the night. pt stated that they may come in later. frequent checks completed for pt. tpn started. tolerating. will continue to monitor. cooperative with staff and nursing assessments. pt ambulates steady gait in room.
[2018-05-06] MEDS: SENNOSIDES 8.6 MG TABLET PO (22:17)
[2018-05-07] VITALS (9 sets, daily range): BP systolic 97–140; BP diastolic 55–89; PULSE 78–89; RESP 13–18; TEMP 36.5–37; O2SAT 94–97
[2018-05-07] MEDS: METOCLOPRAMIDE 10 MG/2 ML INJ IV ×4 (00:30→18:10)
[2018-05-07] MEDS: SODIUM CHLORIDE 0.9% FLUSH 10 ML IV ×3 (00:36→05:41)
[2018-05-07] MEDS: LORazepam 2 MG/ML SYRINGE 1 MG IV ×4 (00:39→19:02)
--- NOTE | 2018-05-07 01:17 | PC.NURSE ---
Addendum entered by Lisa Triplett R.N. 05/07/18 05:49: Complains of 7/10 lower abdominal sharp, cramping/pressure pain; medicated with Dilaudid. Original Note: Addendum entered by Lisa Triplett R.N. 05/07/18 02:40: Patient complains of sharp, cramping pain in lower abdomen with 7/10 severity; medicated with Dilaudid Original Note: Patient is alert and oriented; became teary when discussing length of stay and missing events with her grandchildren. Requested/medicated with Ativan and allowed to vent. Breath sounds CTA with RA sat of 95%. HRR. Denies nausea. BT hypoactive but has been having some loose stools on previous shifts. States lower abdominal tenderness present but declines offer of pain med stating it is tolerable at 4/10. Independent with bed mobility and independent in room. Denies dysuria, frequency or urgency. Abdominal incision is [employer], well approximated and without signs of infection. TPN infusing; Lipids infused. CBG at 0000 was 115. Fall risk score is moderate; no bed alarm is being used at this time.
[2018-05-07] MEDS: HYDROMORPHONE 1 MG INJ IV ×5 (02:36→22:05)
[2018-05-07] MEDS: DOCUSATE 100 MG CAPSULE PO (08:46)
[2018-05-07] MEDS: LISINOPRIL 10 MG TABLET PO (08:46)
[2018-05-07] MEDS: ENOXAPARIN 40 MG/0.4 ML SYRINGE SUBCUT (08:46)
--- NOTE | 2018-05-07 09:08 | PC.NURSE ---
Day shift 0845: Safety checks done. Pt is a/o x4 resting in bed. Assessment done. Pt reports anxiety. Asked if she was on ativan pre-hospitalization. Pt states she had anxiety before coming that she was going to talk to her doctor about, however, being in the hospital for 2 weeks has increased her anxiety levels. Medication was given to help decrease anxiety. Education done on ambulation. Pt says she will walk around some more after she takes a nap. Reports walking around in her room before eating breakfast. Pt gets teary when talking about grandchildren and missing events.
--- NOTE | 2018-05-07 13:22 | PM.PN.1 ---
Subjective Date Patient Seen: 05/07/18 Time Patient Seen: 13:22 Interval history: Denies nausea or vomiting. Having some diffuse lower abdominal crampy pain followed shortly by flatus and liquid stool. Crampy pain is relieved with bowel function. No dysuria or hematuria. Ambulating without difficulty. Abdominal pain is otherwise minimal and well controlled. She tolerated clear liquid diet yesterday without issue. However, she is having some mild heartburn today. No regurgitation. Denies any subjective fever or chills. No chest pain or shortness of breath. Remains overall anxious about the prolonged hospitalization and time away from home, especially her grandchildren. Exam Vital Signs (past 8 hours): - 05/07/18 07:35 05/07/18 08:43 05/07/18 08:46 Temperature 98.2 F Pulse Rate 83 81 78 Respiratory Rate 17 15 Blood Pressure 97/55 L 113/66 113/66 Pulse Oximetry 94 95 05/07/18 11:35 05/07/18 12:17 Temperature 97.7 F Pulse Rate 81 82 Respiratory Rate 17 13 Blood Pressure 126/79 140/89 Pulse Oximetry 97 95 Oxygen Delivery Method Room Air Oxygen Flow Rate 0 Narrative Exam Narrative: Well-nourished well-developed female in no acute distress. Alert oriented x3. She is resting comfortably in bed at the time of my visit. She has tolerated clear liquids this afternoon along with several salty crackers. No documented fevers. Current temperature 98.2?. She has normal sinus rhythm in the 70s and 80s. Blood pressure in room-air saturations are normal. No crackles or wheezes Abdomen soft, nondistended, minimally tender. Certainly no guarding or rebound. Wound is clean, dry, and intact. No erythema. Objective Labs Result Diagrams: 05/06/18 05:30 05/06/18 05:30 Labs: No new laboratory or radiographic studies for review today Assessment & Plan Plan: Assessment/Plan Narrative: 53-year-old female now 12 days status post exploratory laparotomy with extensive lysis of adhesions for significant small-bowel obstruction complicated by prolonged postoperative ileus slowly resolving who is doing well currently. We will advance her diet slowly. Full liquid diet with few salty crackers allowed has been ordered. Continue TPN until she is tolerating a regular diet. Repeat CBC and basic metabolic panel tomorrow. Continue to ambulate multiple times daily. Restart Protonix. Overall she appears to be slowly improving. If he does well with the above diet today then we will attempt yet again a trial of regular food. All the above discussed with the patient. Questions were answered to her satisfaction, and she voiced understanding. Orders were written.
--- NOTE | 2018-05-07 17:31 | PC.NURSE ---
Addendum entered by Meghana Resendiz R.N. 05/07/18 21:53: Pt up at intervals through evening. TPN & Lipids infusing as per orders. Med w/ ativan at 1900 for anxoety. Med at 2150 for discomfort. Call light w/in reach, bed alarm on for pt safety. Continue w/plan of care. Original Note: Pt uyp ad yong in room, ambulated in hallway. TPN continues infusing BRANDON PICC as per orders. Med at 1645 w/Dilaudid for discomfort w/good relief. SpO2 95% RA, lungs clear. Call light w/in reach.
[2018-05-07] MEDS: AA 5 %/CALCIUM/LYTES/DEXT 20 % 1,000 ML with MULTIVITAMIN 10 ML, TRACE ELEMENTS 1 ML, P... 43.375 ML IV (18:09)
[2018-05-07] MEDS: FAT EMULSIONS 50 GM/250 ML EMULSION IV (18:09)
[2018-05-08] VITALS (9 sets, daily range): BP systolic 119–154; BP diastolic 71–88; PULSE 76–88; RESP 12–18; TEMP 36.5–36.8; O2SAT 93–96
[2018-05-08] MEDS: SODIUM CHLORIDE 0.9% FLUSH 10 ML IV ×3 (00:18→06:06)
[2018-05-08] MEDS: METOCLOPRAMIDE 10 MG/2 ML INJ IV ×4 (00:18→18:47)
--- NOTE | 2018-05-08 00:36 | PC.NURSE ---
Addendum entered by Lisa Triplett R.N. 05/08/18 06:11: States pain is now more tolerable at 2/10. No stools during this shift and continues to deny nausea. Original Note: Addendum entered by Lisa Triplett R.N. 05/08/18 04:43: Complains of 7/10 lower abdominal, sharp, cramping pain; medicated with Dilaudid Original Note: Addendum entered by Lisa Triplett R.N. 05/08/18 00:44: Abdominal incision is FRANKI with intact steri strips; well approximated and without redness or drainage. Original Note: Patient is alert and oriented. Breath sounds diminished at bases with RA sat of 93%. HRR. Denies nausea and states she tolerated full liquid diet without nausea. BT more active tonight and patient reports she has continued to have stools with more form to them. Still having pressure type pain in lower abdomen for which she is taking Dilaudid. Current pain severity is 6/10 and can have more Dilaudid at 0100 but patient declines need at this time. Turns self in bed. Up to bathroom to void/stool independently. Fall risk score is moderate but patient steady on feet so bed alarm is not being used at this time; patient reminded to call for assist if feeling weak, unsteady or dizzy when getting up.
[2018-05-08] MEDS: HYDROMORPHONE 1 MG INJ IV ×5 (04:38→20:59)
[2018-05-08 05:55] LABS: Add Manual Diff / Slide Review NO; Basophils Percent Auto 1.1 % (0-2); Eosinophils Percent Auto 2.8 % (2-4); Hematocrit 36.8 % (36-46); Hemoglobin 12.3 g/dL (12.0-16.0); Lymphocytes Percent Auto 19.9 % (25-40); Mean Corpuscular HGB Conc 33.4 % (30-36); Mean Corpuscular Hemoglobin 30.3 PG (26-34); Mean Corpuscular Volume 90.8 fL (80-100); Monocytes Percent Auto 9.9 % (3-14); Neutrophils Absolute Auto 4400 /uL (3000-5900); Neutrophils Percent Auto 66.3 % (50-75); Platelet Count 306 X10^3/uL (150-400); Red Blood Cell Count 4.05 X10^6/uL (4.0-5.2); Red Cell Distribution Width 13.5 % (11.6-14.8); White Blood Cell Count 6.7 X10^3/uL (4.5-11.0)
[2018-05-08 06:03] LABS: Blood Urea Nitrogen 9 mg/dL (7-17); Calcium 8.8 mg/dL (8.4-10.2); Carbon Dioxide 29 mmol/L (22-32); Chloride 100 mmol/L (98-107); Estimated Glomerular Filt Rate > 60.0 mL/min (>60); Glucose 130 mg/dL (70-100); HEMOLYSIS < 15 (0-50); Potassium 4.2 mmol/L (3.4-5.1); Sodium 138 mmol/L (137-145)
[2018-05-08] MEDS: PANTOPRAZOLE 40 MG TABLET PO (06:06)
[2018-05-08] MEDS: DOCUSATE 100 MG CAPSULE PO ×2 (07:56→20:41)
[2018-05-08] MEDS: LISINOPRIL 10 MG TABLET PO (07:56)
[2018-05-08] MEDS: ENOXAPARIN 40 MG/0.4 ML SYRINGE SUBCUT (07:57)
[2018-05-08] MEDS: LORazepam 2 MG/ML SYRINGE 1 MG IV ×3 (10:28→20:59)
[2018-05-08] MEDS: AA 5 %/CALCIUM/LYTES/DEXT 20 % 1,000 ML with MULTIVITAMIN 10 ML, TRACE ELEMENTS 1 ML, P... 43.375 ML IV (18:16)
[2018-05-08] MEDS: SENNOSIDES 8.6 MG TABLET PO (20:41)
[2018-05-09 00:29] VITALS: BP 118/76; PULSE 87; RESP 18; TEMP 36.7; O2SAT 94
[2018-05-09] MEDS: METOCLOPRAMIDE 10 MG/2 ML INJ IV ×4 (01:07→17:34)
[2018-05-09] MEDS: LORazepam 2 MG/ML SYRINGE 1 MG IV ×4 (01:28→17:33)
[2018-05-09] MEDS: HYDROMORPHONE 1 MG INJ IV ×4 (01:28→15:41)
[2018-05-09 06:07] VITALS: BP 119/68; PULSE 80; RESP 16; TEMP 36.7; O2SAT 95
[2018-05-09 08:28] VITALS: BP 100/53; PULSE 80; RESP 18; TEMP 36.6; O2SAT 94
[2018-05-09] MEDS: DOCUSATE 100 MG CAPSULE PO ×2 (09:06→21:24)
[2018-05-09] MEDS: ENOXAPARIN 40 MG/0.4 ML SYRINGE SUBCUT (09:06)
[2018-05-09] MEDS: PANTOPRAZOLE 40 MG TABLET PO (09:06)
--- NOTE | 2018-05-09 09:29 | PM.PN.1 ---
Subjective Date Patient Seen: 05/09/18 Time Patient Seen: 09:29 Interval history: Patient without any new complaints. No nausea or vomiting. Tolerated full liquid diet yesterday without any issues. Reports normal bladder function without dysuria or hematuria. No subjective fever or chills. No chest pain or shortness of breath. No subjective abdominal distention. She is having some crampy abdominal pain in the bilateral lower quadrants followed shortly thereafter by flatus. She states she is passing copious flatus. No stool yesterday but she has had multiple stools over the last several days. Exam Vital Signs (past 8 hours): - 05/09/18 06:07 05/09/18 08:28 Temperature 98.0 F 97.9 F Pulse Rate 80 80 Respiratory Rate 16 18 Blood Pressure 119/68 100/53 L Pulse Oximetry 95 94 Oxygen Delivery Method Room Air Oxygen Flow Rate 0 Narrative Exam Narrative: Well-nourished well-developed female in no acute distress lying comfortably in bed. She remains afebrile and otherwise hemodynamically stable. Alert oriented x3 Regular rate and rhythm Abdomen soft, nondistended, nontender, no masses. Incision is clean, dry, and intact. Objective Labs Result Diagrams: 05/08/18 05:18 05/08/18 05:18 Labs: No new laboratory or radiographic studies for review today Assessment & Plan Plan: Assessment/Plan Narrative: 53-year-old female now postoperative day 14 from exploratory laparotomy with extensive lysis of adhesions complicated by prolonged postoperative ileus now apparently resolving. She is doing well currently and has evidence of bowel function. Her examination remains benign with no evidence of any further complications or issues. We will therefore advance her to a mechanical soft diet. Stop TPN and lipids today. Continue current medical regimen. If she does well over the next 24 hr with oral intake and no evidence of any nausea or vomiting then plan to discharge home tomorrow. I discussed all the above with her in detail. All questions answered to her satisfaction, and she voiced understanding. Orders were written.
--- NOTE | 2018-05-09 09:30 | PC.NURSE ---
Addendum entered by Shelly Vang R.N. 05/09/18 10:44: pt c/o pain 10/19 to abdomen medicated per emar, denies any nausea or GI upset at this time. Original Note: Day shift note pt is resting comfortably stats she did not sleep well last night. tolerated full liquid diet for breakfast denies any nausea, passing flatus, would like to take a nap this morning. call light within reach.
[2018-05-09] MEDS: SODIUM CHLORIDE 0.9% FLUSH 10 ML IV (10:38)
[2018-05-09 11:11] VITALS: BP 111/69; PULSE 79; RESP 18; TEMP 36.6; O2SAT 94
[2018-05-09 15:30] VITALS: BP 122/80; PULSE 100; RESP 20; TEMP 36.5; O2SAT 97
--- NOTE | 2018-05-09 16:27 | PC.NURSE ---
Addendum entered by Brisa Conklin 05/09/18 17:18: Patient rang call light at 1700 to ask for anxiety medication. The patient had just seen Dr. Levy who notified her of discharge tomorrow. The nurse was notified of this request. This student nurse performed the shift assessments including physical, drew, IV assessments. Patient reported a pain level of 4 which was improved from earlier in the evening. Patient had normal bowel sounds but reports her bowel movements are not back to normal. Patient was somnolent and kept eyes shut throughout the assessments and asked for lights off to rest. Bed is low and locked with call light within reach. Patients evening meal was brought and place on tray but patient did not want to eat at this time. Original Note: Student nurse note: This student nurse answered a call light for this patient. The patient requested her IV Dilaudid and reported pain. Her FLACCID scale confirmed this. The nurse was notified and she administer pain medication. This student nurse went in to the patients room 20min later to check to see if it was a good time to perform the shift assessments. The patient's room was dark and her eyes were closed. It was asked if she wanted to rest and she stated yes. The patient was allowed to sleep. This student nurse will check back to try to do the assessments after the patient has slept some.
[2018-05-09 20:18] VITALS: BP 121/71; PULSE 92; RESP 18; TEMP 36.8; O2SAT 95
[2018-05-09] MEDS: SENNOSIDES 8.6 MG TABLET PO (21:24)
[2018-05-10 00:02] VITALS: BP 129/84; PULSE 88; RESP 16; TEMP 36.7; O2SAT 97
[2018-05-10] MEDS: METOCLOPRAMIDE 10 MG/2 ML INJ IV ×2 (00:04→05:36)
[2018-05-10 04:19] VITALS: BP 108/74; PULSE 89; RESP 18; TEMP 36.5; O2SAT 96
[2018-05-10] MEDS: PANTOPRAZOLE 40 MG TABLET PO (05:36)
[2018-05-10] MEDS: LORazepam 2 MG/ML SYRINGE 1 MG IV (05:40)
[2018-05-10 08:00] VITALS: BP 110/68; PULSE 87; RESP 18; TEMP 36.7; O2SAT 97
--- NOTE | 2018-05-10 08:41 | P.DS_ITS ---
History of Present Illness Date Patient Seen: 05/10/18 Time Patient Seen: 08:39 Chief complaint: NAUSEA/VOMITING FOR OVER A WEEK Narrative: 53-year-old female who presented with nausea, vomiting, abdominal pain, and distention through the emergency department. She was admitted initially to the medical service and a nasogastric tube was inserted. There was bilious return. Her examination and evaluation at the time of admission were consistent with partial small-bowel obstruction. However, she did not respond to non operative management and surgical consultation was subsequently obtained. She was taken to the operating room for the above surgical procedures which she tolerated well. Postoperatively she was admitted to the regular surgical floor. While there she remained afebrile and hemodynamically stable throughout. Nasogastric tube was maintained for several days after surgery and then discontinued when output diminished. She began to pass some flatus and had no nausea or vomiting. She was therefore given liquid diet which she tolerated well actually. Diet was then slowly advanced to regular but she began to have difficulties with nausea, vomiting, recurrent pain and distention, and inability to tolerate solid food. Because of her prolonged inability to tolerate oral intake she was begun on TPN through a PICC line. She was maintained on TPN and lipids throughout her stay until she was able to tolerate a regular diet. Examination and findings including radiographic studies consisting of both plain x-rays and small-bowel follow-through were consistent with ileus. No evidence of recurrent obstruction. She was begun on Reglan and maintained on clear liquids only. The nasogastric tube did not have to be reinserted. This was quite is source of anxiety for her, and this exacerbated her baseline known anxiety disorder. Anxiety was controlled with as needed Ativan to which she responded well. She was ambulating without difficulty. Pain was well controlled initially with TOPOGRAPHICAL FIELD ASSISTANT then converted oral analgesia. At the time of discharge she is stable with ibuprofen orally only. She did eventually have return of spontaneous bowel and bladder function. She is passing flatus and stool to time of discharge. She was restarted on her usual lisinopril and her blood pressure has been normal since. Because of the resolution of her ileus, ability to tolerate oral intake, and no need for TPN at this time she is discharged home. I have reviewed her medications with her. All activity restrictions were also reviewed. She will follow up in the surgery Clinic within the next 1-2 weeks. However, have clearly instructed her to call or return sooner should she have any fever, chills, nausea, vomiting, inability to tolerate a diet, recurrent distention, progressive abdominal pain, wound drainage, or any other concerns. All questions were answered to her satisfaction, and she voiced understanding. Discharge Providers Date of admission: 04/21/18 17:36 Consults: 04/24/18 15:47 Consult to General Surgery Routine Comment: Consulting Provider: Tate Levy Reason for consultation: SBO Has provider been notified: Yes 04/25/18 14:45 Consult to Discharge Planning Routine Comment: Consult to Security Sales Manager Routine Comment: 04/25/18 17:32 Consult to Physical Therapy Evaluate & Treat Comment: [id number] epidural for post op pain Physician Instructions: Evaluate and Treat Discharge provider: Tate Levy MD Discharge Date: 05/10/18 Summary Discharge Diagnosis: 1. Partial small bowel obstruction secondary to adhesions 2. Exploratory laparotomy with extensive lysis of adhesions April 25, 2018 3. Prolonged postoperative ileus, resolved at the time of discharge 4. Anxiety disorder 5. Morbid obesity 6. Mild protein calorie malnutrition secondary to prolonged ileus, resolved 7. Hypertension 8. Migraine headaches 9. History of appendectomy 10. History of hysterectomy 11. Placement of PICC line this admission Exam Vital Signs (past 8 hours): - 05/10/18 04:19 Temperature 97.7 F Pulse Rate 89 Respiratory Rate 18 Blood Pressure 108/74 Pulse Oximetry 96 Oxygen Delivery Method Room Air Oxygen Flow Rate 0 Narrative Exam Narrative: Well-nourished well-developed moderately obese female in no acute distress lying comfortably in bed. Alert oriented x3 She has been afebrile since surgery. No tachycardia. She had mild hypertension consistent with her baseline but subsequently well controlled with her usual lisinopril. She had been receiving intermittent antihypertensives with good results until she was tolerating a diet. Current blood pressure is 108/74. Heart rate 89. She is stable on room air at 96% saturation Sclera nonicteric Chest clear to auscultation bilaterally with regular rate and rhythm. No murmurs , gallops, or rubs. No crackles or wheezes. Abdomen is obese but soft and nondistended. Active bowel sounds. Wound is clean, dry, and intact without erythema, ecchymosis, or drainage. She is minimally tender to palpation at the incision only. No guarding or rebound. No masses. Extremities show no clubbing or cyanosis Objective Labs Result Diagrams: 05/08/18 05:18 05/08/18 05:18 Labs: No new radiographic studies at the time of discharge Discharge Plan Discharge Plan Patient Disposition: Home Discharge Med Rec/Prescriptions Prescriptions: New sennosides [Senokot] 8.6 mg tablet 8.6 mg PO BEDTIME Qty: 10 RF: 1 docusate sodium [Colace] 100 mg capsule 100 mg PO BID Qty: 14 RF: 1 ibuprofen 800 mg tablet 800 mg PO QID PRN (Reason: pain) Qty: 60 RF: 0 pantoprazole [Protonix] 40 mg tablet,delayed release (DR/EC) 40 mg PO DAILY Qty: 30 RF: 0 lorazepam [Ativan] 1 mg tablet 1 mg PO BID-TID PRN (Reason: anxiety) Qty: 30 RF: 0 ondansetron HCl [Zofran] 4 mg tablet 4 mg PO Q6-8H PRN (Reason: nausea and vomiting) Qty: 14 RF: 0 Continue lisinopril 10 mg Tablet 10 mg PO DAILY RF: 0 Follow up/Referrals: Tate Levy MD [Physician] - 05/23/18 12:00 am (Please call office for exact appointment time) Provider Discharge Instructions Diet: Diet as Tolerated Diet comment: Maintain basic mechanical soft diet for now Activity: No heavy lifting more than 20 lb for 2 more weeks May walk as much as desired May climb stairs May ride in vehicle No driving for 1 more week Cold/Heat Therapy: May apply ice pack to incision as needed for comfort Other treatments: May shower May soak in bathtub if desired May use [id number] laxative like milk of magnesia if desired Skin/Wound/Dressing Care Report to your healthcare provider any signs of infection, such as:: chills, fever, increased pain and unusual drainage Dressing: No dressing necessary Visit Report/Discharge Packet Visit Report Forms: Stroke Signs & Symptoms Discharge Data Attending Provider: Tate Levy Admit Date/Time: 04/21/18 17:36
[2018-05-10] MEDS: HYDROMORPHONE 1 MG INJ IV ×2 (09:53)
[2018-05-10] MEDS: SODIUM CHLORIDE 0.9% FLUSH 10 ML IV (09:53)
[2018-05-10] MEDS: ENOXAPARIN 40 MG/0.4 ML SYRINGE SUBCUT (09:53)
[2018-05-10] MEDS: DOCUSATE 100 MG CAPSULE PO (09:54)
== END 2018-05-10 10:45 | disposition home or self-care (01) | DRG 224 ==
LOC: ED 17:06 → AC 17:37 → ICU 04-26 10:54 → AC 04-30 14:19 → ICU 04-01 12:17
PROVIDERS: Emergency Medicine; Internal Medicine; Specialist; Admitting Provider Internal Medicine; Emergency Provider Nurse Practitioner Family; Visit Provider Surgery
PROC: 0DN80ZZ Release Small Intestine, Open Approach (ICD-10-PCS; CPT 49000; principal; 2018-04-25 16:00)
DX: K56.51 Intestinal adhesions [bands], with partial obstruction (principal); F41.9 Anxiety disorder, unspecified; E66.01 Morbid (severe) obesity due to excess calories; Z68.42 Body mass index [BMI] 45.0-49.9, adult; K56.7 Ileus, unspecified; I10 Essential (primary) hypertension; F17.210 Nicotine dependence, cigarettes, uncomplicated; E44.1 Mild protein-calorie malnutrition; G43.909 Migraine, unspecified, not intractable, without status migrainosus
CPT/HCPCS: 36415; 36569; 36592; 44005; 71045; 74018; 74019; 74021; 74022; 74177; 74250; 76700; 80048; 80053; 81003; 82962; 83690; 83735; 84100; 85025; 85610; 85730; 86850; 86900; 86901; 87797; 93005; 94760; 96361; 96374; 96375; 97110; 97116; 97161; 97530; 99223; 99283; 99285; 99406; B4189; C9113; J0330; J1100; J1170; J1200; J1642; J1650; J1885; J2060; J2250; J2405; J2704; J2765; J3010; J3480; Q9967

== ENCOUNTER → 2018-05-16 09:49 | Outpatient (CLI) | payer OTHER, MEDICAID, SELFPAY ==
[2018-04-21 17:46] VITALS: BMI 45.7
== END ==
PROVIDERS: PCP Family Medicine; Visit Provider Surgery
DX: R11.10 Vomiting, unspecified (principal); R19.7 Diarrhea, unspecified

== ENCOUNTER → 2018-05-16 10:03 | Outpatient (CLI) | payer OTHER, MEDICAID, SELFPAY ==
[2018-04-21 17:46] VITALS: BMI 45.7
[2018-05-16 11:55] LABS: Add Manual Diff / Slide Review NO; Basophils Percent Auto 1.2 % (0-2); Eosinophils Percent Auto 2.8 % (2-4); Hematocrit 42.3 % (36-46); Hemoglobin 14.3 g/dL (12.0-16.0); Mean Corpuscular HGB Conc 33.9 % (30-36); Mean Corpuscular Hemoglobin 30.6 PG (26-34); Mean Corpuscular Volume 90.3 fL (80-100); Monocytes Percent Auto 7.6 % (3-14); Neutrophils Absolute Auto 5600 /uL (3000-5900); Neutrophils Percent Auto 69.4 % (50-75); Platelet Count 399 X10^3/uL (150-400); Red Blood Cell Count 4.68 X10^6/uL (4.0-5.2); Red Cell Distribution Width 13.5 % (11.6-14.8)
[2018-05-16 12:13] LABS: Alanine Aminotransferase 41 IU/L (9-52); Albumin 3.9 g/dL (3.5-5.0); Albumin Globulin Ratio 1.1 (1.0-2.8); Alkaline Phosphatase 94 U/L (38-126); Aspartate Aminotransferase 24 IU/L (14-36); BUN Creatinine Ratio 16.9 (6-22); Bilirubin Total 0.3 mg/dL (0.2-1.3); Blood Urea Nitrogen 22 mg/dL (7-17); Calcium 9.1 mg/dL (8.4-10.2); Carbon Dioxide 24 mmol/L (22-32); Chloride 102 mmol/L (98-107); Estimated Glomerular Filt Rate 43.2 mL/min (>60); Globulin 3.5 g/dL (1.7-4.1); Glucose 95 mg/dL (70-100); HEMOLYSIS 25 (0-50); Lipase 111 U/L (23-300); Potassium 3.9 mmol/L (3.4-5.1); Sodium 142 mmol/L (137-145); Total Protein 7.4 g/dL (6.3-8.2)
[2018-05-16 12:53] LABS: Procalcitonin 0.13 ng/mL (<0.5)
--- NOTE | 2018-05-16 18:27 | P.HP_ITS ---
History of Present Illness Date Patient Seen: 05/16/18 Time Patient Seen: 18:18 Chief complaint: POST SURGERY NAUSEA,VOMITING,DIARRHEA Narrative: 53-year-old female seen in the office earlier today for 3 day history of intermittent nausea, vomiting, mild epigastric abdominal pain, and diarrhea. She is approximately 3 weeks status post emergency laparotomy with extensive lysis of adhesions for small-bowel obstruction was complicated by prolonged postoperative ileus although that was not entirely unanticipated given the nature of her disease. She was discharged home exactly 6 days ago but presented today with the above symptoms. No fever but she did have some mild chills. Through the course of the day today she has had progressive abdominal distention and pain. No vomiting but she is nauseated. She continues to have loose frequent bowel movements which are otherwise nonbloody. She is passing flatus. Full battery laboratory studies and CT scan of the abdomen and pelvis were obtained as an outpatient today. I have seen her in follow-up for those results. Her laboratory studies are unremarkable but the CT scan is consistent with potential recurrent distal small-bowel obstruction. I discussed those results with the radiologist as well. No free fluid. No abscess. No free air. No significant bowel wall thickening otherwise but she does have postoperative inflammatory changes as anticipated. Patient History Medical History Anxiety disorder (Acute) Small bowel obstruction due to adhesions (Acute) Postoperative ileus (Resolved) Morbid obesity with BMI of 45.0-49.9, adult (Acute) HTN (hypertension) (Chronic) Migraine (Chronic) Surgical History Status post exploratory laparotomy (Acute) Status post appendectomy (Resolved) Status post hysterectomy (Resolved) Family & Social History Family History: Reviewed 05/16/18 by Tate Levy MD Social History: household members significant other,family Tobacco & Substance use: Smoking Status Current every day smoker alcohol intake frequency holiday/special occasion Substance Use Type does not use Meds Home Medications Medication Instructions Recorded Confirmed Type lisinopril 10 mg PO DAILY 04/21/18 05/16/18 History docusate sodium [Colace] 100 mg PO BID #14 cap 05/10/18 05/16/18 Rx ibuprofen 800 mg PO QID PRN #60 tab 05/10/18 05/16/18 Rx lorazepam [Ativan] 1 mg PO BID-TID PRN #30 tab 05/10/18 05/16/18 Rx ondansetron HCl [Zofran] 4 mg PO Q6-8H PRN #14 tab 05/10/18 05/16/18 Rx pantoprazole [Protonix] 40 mg PO DAILY #30 tab 05/10/18 05/16/18 Rx sennosides [Senokot] 8.6 mg PO BEDTIME #10 tab 05/10/18 05/16/18 Rx Allergies Allergy/AdvReac Type Severity Reaction Status Date / Time Penicillins Allergy Intermediate Hives Verified 05/16/18 09:38 ranitidine [From Zantac] Allergy Intermediate Hives Verified 05/16/18 09:38 Review of Systems Review of Systems All systems reviewed & are unremarkable except as noted in HPI and below Exam Narrative Exam Narrative: Obese female in no acute distress but does appear mildly ill acutely. Alert oriented x3 Sclera nonicteric Neck is supple Chest clear to auscultation bilaterally with regular rate and rhythm No flank tenderness Abdomen soft but mildly distended, especially in the epigastrium. There is some fullness there although she is not particularly tympanitic. She is mildly tender in the epigastric region but without guarding or rebound. Her midline incision is clean, dry, and intact. No erythema or ecchymosis. No wound drainage. Extremities show no clubbing, cyanosis, or edema Objective Labs Result Diagrams: 05/16/18 10:06 05/16/18 10:06 Labs: Laboratory Results - last 24 hr 05/16/18 05/16/18 05/16/18 10:06 10:06 10:06 WBC 8.0 RBC 4.68 Hgb 14.3 Hct 42.3 MCV 90.3 MCH 30.6 MCHC 33.9 RDW 13.5 Plt Count 399 Neut % (Auto) 69.4 Lymph % (Auto) 19.0 L [place] % (Auto) 7.6 Eos % (Auto) 2.8 Baso % (Auto) 1.2 Neut # (Auto) 5600 Sodium 142 Potassium 3.9 Chloride 102 Carbon Dioxide 24 BUN 22 H Creatinine 1.30 H Estimated GFR 43.2 L BUN/Creatinine Ratio 16.9 Glucose 95 Calcium 9.1 Total Bilirubin 0.3 AST 24 ALT 41 Alkaline Phosphatase 94 Total Protein 7.4 Albumin 3.9 Globulin 3.5 Albumin/Globulin Ratio 1.1 Lipase [address] scan results are as above. Assessment & Plan Plan: Assessment/Plan Narrative: 53-year-old female with probable recurrent partial small bowel obstruction status post recent laparotomy with extensive lysis of adhesions. She has no evidence of any infectious complications. No evidence of mesenteric ischemia. However, she does have signs of dehydration. I am also concerned about Clostridium difficile colitis causing the diarrhea. C diff toxin was ordered earlier today. I have recommended she be admitted to the hospital for IV fluid resuscitation and bowel rest. We discussed the potential need for re-insertion of her nasogastric tube which she had some difficulties with her last admission. Repeat laboratory studies tomorrow. No need for antibiotics currently. Treat her pain and anxiety symptomatically. I discussed all the above with her in detail. All questions were answered to her satisfaction, and she voiced understanding. She refused direct admission at the moment she wished to attend her children's [place] function at their school this evening. However, she will return to the emergency department later tonight for direct admission. I have discussed this with the charge nurse as well as the attending emergency room physician. They were agreeable to the plan. Orders have been written. Proceed as above.
== END ==
PROVIDERS: Visit Provider Surgery
DX: R11.10 Vomiting, unspecified (principal); R19.7 Diarrhea, unspecified; K44.9 Diaphragmatic hernia without obstruction or gangrene
CPT/HCPCS: 36415; 80053; 83690; 84145; 85025

== ENCOUNTER → 2018-05-16 16:24 | Outpatient (CLI) | payer OTHER, MEDICAID, SELFPAY ==
[2018-04-21 17:46] VITALS: BMI 45.7
--- NOTE | 2018-05-16 16:26 | DI.CT.S_ITS ---
PROCEDURE: CT ABDOMEN PELVIS W CON INDICATIONS: pain, vomiting, diarrhea after laparotomy TECHNIQUE: After the administration of intravenous contrast, 5 mm thick sections acquired from the diaphragm to the symphysis. 5 mm coronal and sagittal reformats were acquired. For radiation dose reduction, the following was used: automated exposure control, adjustment of mA and/or kV according to patient size. COMPARISON: [facility], CT, ABDOMEN/PELVIS WITH CONTRAST, 11/23/2006, 12:16. [facility], CT, CT ABDOMEN PELVIS W CON, 04/15/2018, 17:13. [facility], CR, XR ABDOMEN 3V, 05/04/2018, 13:46. [facility], CR, XR ABDOMEN MIN 2V, 05/06/2018, 6:31. [facility], CT, CT ABDOMEN PELVIS W CON, 04/22/2018, 18:29. FINDINGS: Image quality: Excellent. ABDOMEN: Lung bases: Lung bases are clear. Heart size is normal. Solid organs: Liver is normal in size and enhancement. Gallbladder is normal. Biliary system is non dilated. Pancreas enhances normally. Spleen is normal in size and enhancement. No adrenal nodules. Kidneys demonstrate normal size and enhancement, without hydronephrosis. Peritoneum and bowel: Stomach and proximal small bowel loops are distended and filled with fluid. Small bowel measures up to 4.5 cm in diameter . There are air-fluid levels in small bowel. A transitional point is identified in the distal ileum. The findings are consistent with small bowel obstruction. There is equivocal follow thickening in several your loops. Mild mesenteric stranding is present. No free fluid or air. Nodes and vessels: No retroperitoneal or mesenteric adenopathy by size criteria. Aorta and inferior vena cava are normal in size. Miscellaneous: No ventral hernias. There is stranding in the right anterior abdominal wall likely related to recent surgery. A surgical scar is noted at the midline. PELVIS: Genitourinary: Bladder wall thickness is normal. Miscellaneous: No inguinal hernias or adenopathy. Bones: No suspicious bony lesions. No vertebral body compression fractures. IMPRESSION: 1. Moderate distal small bowel obstruction is present. 2. Mild mesenteric stranding and stranding in the right anterior abdominal wall are most likely related to recent surgery. The result was discussed with Dr. Levy on 05/16/2018 at 1820 hrs. Dictated by: Nirali Canchola M.D. on 05/16/2018 at 18:03 Approved by: Nirali Canchola M.D. on 05/16/2018 at 18:21
== END ==
PROVIDERS: Visit Provider Surgery
DX: K56.609 Unspecified intestinal obstruction, unspecified as to partial versus complete obstruction (principal); R11.10 Vomiting, unspecified; R19.7 Diarrhea, unspecified; R10.9 Unspecified abdominal pain; K44.9 Diaphragmatic hernia without obstruction or gangrene
CPT/HCPCS: 36415; 74177; 80053; 83690; 84145; 85025; Q9967

== ENCOUNTER 2018-05-26 21:28 | Inpatient (IN) | payer OTHER, MEDICAID, SELFPAY ==
[2018-04-21 17:46] VITALS: BMI 45.7
[2018-05-26 21:55] VITALS: BP 134/86; PULSE 110; RESP 36; TEMP 37.8; O2SAT 98; BMI 44.3
--- NOTE | 2018-05-26 22:27 | ED.ABDPAIN ---
HPI - Abdominal Pain General Chief Complaint: Abdominal Pain Stated Complaint: ABD PAIN THROWING UP Time Seen by Provider: 05/26/18 22:27 Source: patient Mode of arrival: ambulatory Limitations: no limitations History of Present Illness HPI narrative: The patient was admitted to this facility last month for a small-bowel obstruction, requiring emergent lysis of adhesions. She had a prolonged hospital stay at that time. Since then she has had issues with nausea and vomiting and abdominal pain. She was in [place], [place] 6 days ago when she redeveloped abdominal pain. She was evaluated at [facility] and [facility], and admitted again for several days. She was treated nonsurgically for small-bowel obstruction at that time. She was released from the hospital today. About 4 hr ago she developed left lower quadrant abdominal pain with nausea, and vomiting. She did have 1 loose bowel movement earlier today, prior to onset of pain. She had complains of subjective fever. She has no history of colitis / diverticulitis. She has had no blood in her emesis, and no hematochezia. Related Data Home Medications Medication Instructions Recorded Confirmed lisinopril 10 mg PO DAILY 04/21/18 05/27/18 Previous Rx's Medication Instructions Recorded docusate sodium [Colace] 100 mg PO BID #14 cap 05/10/18 ibuprofen 800 mg PO QID PRN #60 tab 05/10/18 lorazepam [Ativan] 1 mg PO BID-TID PRN #30 tab 05/10/18 ondansetron HCl [Zofran] 4 mg PO Q6-8H PRN #14 tab 05/10/18 pantoprazole [Protonix] 40 mg PO DAILY #30 tab 05/10/18 sennosides [Senokot] 8.6 mg PO BEDTIME #10 tab 05/10/18 Allergies Allergy/AdvReac Type Severity Reaction Status Date / Time Penicillins Allergy Intermediate Hives Verified 05/26/18 21:55 ranitidine [From Zantac] Allergy Intermediate Hives Verified 05/26/18 21:55 Review of Systems Review of Systems All systems reviewed & are unremarkable except as noted in HPI and below Constitutional Denies chills, Reports fever(s) and Denies headache(s) ENT Ears, Nose, Mouth, and Throat: Denies dizziness, Denies headache(s), Denies sore throat and Denies throat swelling Cardiovascular Denies chest pain, Denies irregular heart rhythm, Denies palpitations, Denies dyspnea and Denies dyspnea on exertion Respiratory Denies cough, Denies dyspnea, Denies dyspnea on exertion and Denies wheezing Gastrointestinal Gastrointestinal: Reports abdominal pain, Denies change in bowel habits, Reports diarrhea, Denies nausea and Denies vomiting Genitourinary Denies hematuria, Denies dysuria, Denies flank pain and Denies urinary incontinence Musculoskeletal Denies back pain Integumentary/Breasts Denies erythema and Denies rash Neurologic Denies confusion, Denies dizziness, Denies headache(s) and Denies focal weakness Psychiatric Reports anxiety and Denies confusion Endocrine Denies palpitations Hematologic/Lymphatic Denies easy bleeding and Denies easy bruising Allergic/Immunologic Denies throat swelling and Denies wheezing [facility] Medical History Anxiety disorder (Acute) Morbid obesity with BMI of 45.0-49.9, adult (Acute) Small bowel obstruction due to adhesions (Acute) HTN (hypertension) (Chronic) Migraine (Chronic) Postoperative ileus (Resolved) Surgical History Status post exploratory laparotomy (Acute) Status post appendectomy (Resolved) Status post hysterectomy (Resolved) Family History Mother Hypertension Diabetes mellitus Father Cancer Social History household members: significant other and family Smoking Status: Former smoker Exam Initial Vital Signs Initial Vital Signs: Vital Signs Temperature 100.1 F H 05/26/18 21:55 Pulse Rate 110 H 05/26/18 21:55 Respiratory Rate 36 H 05/26/18 21:55 Blood Pressure 134/86 05/26/18 21:55 Pulse Oximetry 98 05/26/18 21:55 Const General: cooperative, well developed and ill appearing Nutritional Appearance: well nourished Orientation: alert, awake, oriented x3 and not confused [facility] Head: normocephalic and atraumatic Ears: external ears normal Nose: external nose normal Face and sinus: face symmetric Mouth: oral mucosae normal and moist mucous membranes Throat: posterior oropharynx normal, tonsils normal and uvula midline Chest Chest: normal inspection of the chest Resp Effort & Inspection: normal respiratory effort, able to speak in complete sentences, no respiratory distress and no use of accessory muscles Auscultation: clear to auscultation bilaterally, no rales, no rhonchi and no wheezes Cardio Rate: regular rate Rhythm: regular rhythm Heart Sounds: no click, no gallops, no murmurs and no rubs Pulses: normal peripheral pulses GI Inspection: non-distended Palpation: soft, no hepatosplenomegaly, guarding ( but no rebound in the LLQ), No pulsatile mass and No rigid Percussion: no dullness to percussion Auscultation: absent bowel sounds Back/Spine/Pelvis Back: No CVA tenderness Skin General: no rashes or lesions noted Neuro General: alert, awake, oriented x3 and no focal motor deficits Extrem General: normal to inspection, full ROM and no clubbing, cyanosis or edema Psych Appearance: grossly normal and disheveled Affect: normal affect Course Orders Ordered: ED Orders 05/26/18 22:36 CT abdomen pelvis w con Stat 05/26/18 22:55 Complete Blood Count AUTO DIFF Stat Comprehensive Metabolic Panel Stat Lipase Stat 05/26/18 23:20 Urine Microscopic Stat 05/27/18 00:12 Lactate (Lactic Acid) Stat 05/27/18 01:13 XR chest 1V Stat Benzocaine (Cepacol Lozenge) 1 each PO Q1HR PRN PRN Reason: Sore Throat Last Admin: 05/27/18 03:09 Dose: 1 each Hydromorphone HCl (Dilaudid) 1 mg IV Q4HR PRN PRN Reason: Pain, Moderate (4-6) Last Admin: 05/27/18 03:18 Dose: 1 mg Sodium Chloride (Normal Saline 0.9%) 1,000 mls @ 200 mls/hr IV CONT MUKUL Last Infusion: 05/27/18 01:43 Dose: 0 mls/hr Admin: 05/26/18 22:56 Dose: 200 mls/hr Sodium Chloride (Normal Saline 0.9%) 1,000 mls @ 125 mls/hr IV CONT MUKUL Last Admin: 05/27/18 01:54 Dose: 125 mls/hr Ondansetron HCl (Zofran) 4 mg IV Q4HR PRN PRN Reason: Nausea And Vomiting Discontinued Medications Hydromorphone HCl (Dilaudid) 1 mg IV Q15M MUKUL Stop: 05/26/18 23:01 Last Admin: 05/27/18 00:09 Dose: 1 mg Admin: 05/26/18 22:56 Dose: 1 mg Midazolam HCl (Versed) 2 mg IV NOW ONE Stop: 05/27/18 01:00 Last Admin: 05/27/18 01:00 Dose: 2 mg Non-Formulary Medication (Medizolam) 2 mg IV NOW ONE Stop: 05/27/18 00:42 Last Admin: 05/27/18 00:53 Dose: 2 mg Ondansetron HCl (Zofran) 4 mg IV NOW ONE Stop: 05/26/18 22:36 Last Admin: 05/26/18 22:56 Dose: 4 mg Vital Signs - 8 hr 05/26/18 21:55 05/26/18 23:46 05/27/18 00:15 Temperature 100.1 F H 99.4 F Pulse Rate 110 H 98 H 93 H Respiratory Rate 36 H 12 15 Blood Pressure 134/86 Blood Pressure [Right Wrist] 107/48 L 121/62 Pulse Oximetry 98 94 98 05/27/18 01:06 05/27/18 02:00 Temperature 98.2 F Pulse Rate 101 H 91 H Respiratory Rate 19 20 Blood Pressure 128/79 Blood Pressure [Right Wrist] 104/67 Pulse Oximetry 93 95 MDM - Abdominal Pain Lab Data Result diagrams: 05/26/18 22:55 05/26/18 22:55 Lab Results 05/26/18 05/26/18 05/26/18 Range/Units 22:50 22:55 22:55 WBC 12.7 H (4.5-11.0) X10^3/uL RBC 4.41 (4.0-5.2) X10^6/uL Hgb 13.1 (12.0-16.0) g/dL Hct 37.9 (36-46) % MCV 86.0 (80-100) fL MCH 29.7 (26-34) PG MCHC 34.5 (30-36) % RDW 13.5 (11.6-14.8) % Plt Count 357 (150-400) X10^3/uL Neut % (Auto) 85.7 H (50-75) % Lymph % (Auto) 8.6 L (25-40) % [place] % (Auto) 5.1 (3-14) % Eos % (Auto) 0.0 L (2-4) % Baso % (Auto) 0.6 (0-2) % Neut # (Auto) 92131 H (5397-2483) /uL Sodium 138 (137-145) mmol/L Potassium 3.9 (3.4-5.1) mmol/L Chloride 100 (98-107) mmol/L Carbon Dioxide 24 (22-32) mmol/L BUN 18 H (7-17) mg/dL Creatinine 0.60 (0.52-1.04) mg/dL Estimated GFR > 60.0 (>60) mL/min BUN/Creatinine Ratio 30.0 H (6-22) Glucose 114 H (70-100) mg/dL Lactate 1.3 (0.7-2.1) mmol/L Calcium 9.4 (8.4-10.2) mg/dL Total Bilirubin 0.7 (0.2-1.3) mg/dL AST 23 (14-36) IU/L ALT 28 (9-52) IU/L Alkaline Phosphatase 99 (38-126) U/L Total Protein 7.3 (6.3-8.2) g/dL Albumin 3.8 (3.5-5.0) g/dL Globulin 3.5 (1.7-4.1) g/dL Albumin/Globulin Ratio 1.1 (1.0-2.8) Lipase 18 L (23-300) U/L Urine RBC (0-5/HPF) Urine WBC (0-5/HPF) Ur Squamous Epith Cells Urine Bacteria (None) Hyaline Casts (None) Urine Mucus (Negative) Ur Culture Indicated? Micro UA Comment 05/26/ Range/Units 23:20 WBC (4.5-11.0) X10^3/uL RBC (4.0-5.2) X10^6/uL Hgb (12.0-16.0) g/dL Hct (36-46) % MCV (80-100) fL MCH (26-34) PG MCHC (30-36) % RDW (11.6-14.8) % Plt Count (150-400) X10^3/uL Neut % (Auto) (50-75) % Lymph % (Auto) (25-40) % [place] % (Auto) (3-14) % Eos % (Auto) (2-4) % Baso % (Auto) (0-2) % Neut # (Auto) (2135-5379) /uL Sodium (137-145) mmol/L Potassium (3.4-5.1) mmol/L Chloride (98-107) mmol/L Carbon Dioxide (22-32) mmol/L BUN (7-17) mg/dL Creatinine (0.52-1.04) mg/dL Estimated GFR (>60) mL/min BUN/Creatinine Ratio (6-22) Glucose (70-100) mg/dL Lactate (0.7-2.1) mmol/L Calcium (8.4-10.2) mg/dL Total Bilirubin (0.2-1.3) mg/dL AST (14-36) IU/L ALT (9-52) IU/L Alkaline Phosphatase (38-126) U/L Total Protein (6.3-8.2) g/dL Albumin (3.5-5.0) g/dL Globulin (1.7-4.1) g/dL Albumin/Globulin Ratio (1.0-2.8) Lipase (23-300) U/L Urine RBC 0-1/hpf (0-5/HPF) Urine WBC 0-1/hpf (0-5/HPF) Ur Squamous Epith Cells 5-10 /hpf H Urine Bacteria Moderate (10-30) H (None) Hyaline Casts 0-1/lpf (None) Urine Mucus 1+ H (Negative) Ur Culture Indicated? Cult not indicated Micro UA Comment Not Reportable Point of care testing: Urine Dip Bedside Urine Glucose Negative Bedside Urine Bilirubin ++ 2 Bedside Urine Ketone ++ 40 Urine Specific [place] 1.015 Bedside Urine Occult Blood - Negative Bedside Urine pH 6.0 Bedside Urine Protein +/- 15 Bedside Urine Urobilinogen +/- 1mg Bedside Urine Nitrite - Negative Bedside Urine Leukocytes - Negative Esterase Imaging Data CT scan - abdomen: Radiologist's impression: Small-bowel obstruction likely due to adhesions in the pelvis. Wall thickening free fluid wave and possibility of early bowel ischemia. No free air. Results were discussed with the [facility] radiologist, Dr. Rivas. MDM Narrative Medical decision making narrative: I discussed the patient's presentation,exam, labs and CT findings with the on-call surgeon, Dr. Levy. Dr. Levy was incidentally her attending at the time of her last admission. Although there was a concern raised about ischemic bowel With the radiologist, the lack of fever and labs are reassuring. An NG tube has been ordered, she will admitted to Dr. Levy's service. Discharge Plan Departure Patient Disposition: Admitted As Inpatient Clinical Impression: Small bowel obstruction Discharge Date/Time: 05/27/18 01:42 Interventions: ED Discharge Assessment Last Done: 05/27/18 01:41 Admit Date/Time: 05/27/18 00:37 Admit Provider: Tate Levy
--- NOTE | 2018-05-26 22:36 | DI.CT.S_ITS ---
PROCEDURE: CT ABDOMEN PELVIS W CON INDICATIONS: Probable recurrent SBO. TECHNIQUE: After the administration of intravenous contrast, 5 mm thick sections acquired from the diaphragm to the symphysis. 5 mm coronal and sagittal reformats were acquired. For radiation dose reduction, the following was used: automated exposure control, adjustment of mA and/or kV according to patient size. COMPARISON: [facility], CT, CT ABDOMEN PELVIS W CON, 05/16/2018, 17:22. FINDINGS: Image quality: Excellent. ABDOMEN: Lung bases: Lung bases are clear. Heart size is normal. Solid organs: Liver is normal in size and enhancement. Hepatic steatosis is seen, no discrete hepatic lesion is noted. Gallbladder is within normal limits. Biliary system is non dilated. Pancreas enhances normally. Spleen is normal in size and enhancement. No adrenal nodules. Kidneys demonstrate normal size and enhancement, without hydronephrosis. Peritoneum and bowel: There is a small hiatal hernia. Fluid distended small bowel loops throughout abdomen is seen, measures up to 3.5 cm in diameter. There is mild small bowel wall thickening with mild mesenteric fat stranding. A decompressed small bowel loop is seen in posterior inferior right lower quadrant abdomen extending to ileocecal junction. Colonic loops are decompressed. No gross acute colonic wall thickening. The appendix is not visualized. No secondary signs for acute appendicitis is seen. Trace amount of free fluid in lower pelvis is seen. No peritoneal free air. Nodes and vessels: No retroperitoneal or mesenteric adenopathy by size criteria. Aorta and inferior vena cava are normal in size. Miscellaneous: No ventral hernias. Post surgical changes are noted in anterior abdominal wall with surgical scarring. PELVIS: Genitourinary: Bladder wall thickness is normal. Miscellaneous: No inguinal hernias or adenopathy. Bones: No suspicious bony lesions. No vertebral body compression fractures. IMPRESSION: 1. Finding is suggestive of distal small bowel obstruction likely secondary to adhesion in the mid abdomen/pelvis. Trace amount of peritoneal free fluid. No gross free air. 2. Post surgical changes in anterior midline abdominal wall. 3. No renal stone or hydronephrosis. Dictated by: Luciano Barahona M.D. on 05/27/2018 at 9:13 Approved by: Luciano Barahona M.D. on 05/27/2018 at 9:17
--- NOTE | 2018-05-26 22:39 | ED_ITS ---
HPI - Abdominal Pain General Chief Complaint: Abdominal Pain Stated Complaint: ABD PAIN THROWING UP Time Seen by Provider: 05/26/18 22:27 Source: patient Mode of arrival: ambulatory Limitations: no limitations History of Present Illness HPI narrative: The patient was admitted to this facility last month for a small-bowel obstruction, requiring emergent lysis of adhesions. She had a prolonged hospital stay at that time. Since then she has had issues with nausea and vomiting and abdominal pain. She was in [place], [place] 6 days ago when she redeveloped abdominal pain. She was evaluated at [facility] and [facility], and admitted again for several days. She was treated nonsurgically for small-bowel obstruction at that time. She was released from the hospital today. About 4 hr ago she developed left lower quadrant abdominal pain with nausea, and vomiting. She did have 1 loose bowel movement earlier today, prior to onset of pain. She had complains of subjective fever. She has no history of colitis / diverticulitis. She has had no blood in her emesis, and no hematochezia. Related Data Home Medications Medication Instructions Recorded Confirmed lisinopril 10 mg PO DAILY 04/21/18 05/27/18 Previous Rx's Medication Instructions Recorded docusate sodium [Colace] 100 mg PO BID #14 cap 05/10/18 ibuprofen 800 mg PO QID PRN #60 tab 05/10/18 lorazepam [Ativan] 1 mg PO BID-TID PRN #30 tab 05/10/18 ondansetron HCl [Zofran] 4 mg PO Q6-8H PRN #14 tab 05/10/18 pantoprazole [Protonix] 40 mg PO DAILY #30 tab 05/10/18 sennosides [Senokot] 8.6 mg PO BEDTIME #10 tab 05/10/18 Allergies Allergy/AdvReac Type Severity Reaction Status Date / Time Penicillins Allergy Intermediate Hives Verified 05/26/18 21:55 ranitidine [From Zantac] Allergy Intermediate Hives Verified 05/26/18 21:55 Review of Systems Review of Systems All systems reviewed & are unremarkable except as noted in HPI and below Constitutional Denies chills, Reports fever(s) and Denies headache(s) ENT Ears, Nose, Mouth, and Throat: Denies dizziness, Denies headache(s), Denies sore throat and Denies throat swelling Cardiovascular Denies chest pain, Denies irregular heart rhythm, Denies palpitations, Denies dyspnea and Denies dyspnea on exertion Respiratory Denies cough, Denies dyspnea, Denies dyspnea on exertion and Denies wheezing Gastrointestinal Gastrointestinal: Reports abdominal pain, Denies change in bowel habits, Reports diarrhea, Denies nausea and Denies vomiting Genitourinary Denies hematuria, Denies dysuria, Denies flank pain and Denies urinary incontinence Musculoskeletal Denies back pain Integumentary/Breasts Denies erythema and Denies rash Neurologic Denies confusion, Denies dizziness, Denies headache(s) and Denies focal weakness Psychiatric Reports anxiety and Denies confusion Endocrine Denies palpitations Hematologic/Lymphatic Denies easy bleeding and Denies easy bruising Allergic/Immunologic Denies throat swelling and Denies wheezing [facility] Medical History Anxiety disorder (Acute) Morbid obesity with BMI of 45.0-49.9, adult (Acute) Small bowel obstruction due to adhesions (Acute) HTN (hypertension) (Chronic) Migraine (Chronic) Postoperative ileus (Resolved) Surgical History Status post exploratory laparotomy (Acute) Status post appendectomy (Resolved) Status post hysterectomy (Resolved) Family History Mother Hypertension Diabetes mellitus Father Cancer Social History household members: significant other and family Smoking Status: Former smoker Exam Initial Vital Signs Initial Vital Signs: Vital Signs Temperature 100.1 F H 05/26/18 21:55 Pulse Rate 110 H 05/26/18 21:55 Respiratory Rate 36 H 05/26/18 21:55 Blood Pressure 134/86 05/26/18 21:55 Pulse Oximetry 98 05/26/18 21:55 Const General: cooperative, well developed and ill appearing Nutritional Appearance: well nourished Orientation: alert, awake, oriented x3 and not confused [facility] Head: normocephalic and atraumatic Ears: external ears normal Nose: external nose normal Face and sinus: face symmetric Mouth: oral mucosae normal and moist mucous membranes Throat: posterior oropharynx normal, tonsils normal and uvula midline Chest Chest: normal inspection of the chest Resp Effort & Inspection: normal respiratory effort, able to speak in complete sentences, no respiratory distress and no use of accessory muscles Auscultation: clear to auscultation bilaterally, no rales, no rhonchi and no wheezes Cardio Rate: regular rate Rhythm: regular rhythm Heart Sounds: no click, no gallops, no murmurs and no rubs Pulses: normal peripheral pulses GI Inspection: non-distended Palpation: soft, no hepatosplenomegaly, guarding ( but no rebound in the LLQ), No pulsatile mass and No rigid Percussion: no dullness to percussion Auscultation: absent bowel sounds Back/Spine/Pelvis Back: No CVA tenderness Skin General: no rashes or lesions noted Neuro General: alert, awake, oriented x3 and no focal motor deficits Extrem General: normal to inspection, full ROM and no clubbing, cyanosis or edema Psych Appearance: grossly normal and disheveled Affect: normal affect Course Orders Ordered: ED Orders 05/26/18 22:36 CT abdomen pelvis w con Stat 05/26/18 22:55 Complete Blood Count AUTO DIFF Stat Comprehensive Metabolic Panel Stat Lipase Stat 05/26/18 23:20 Urine Microscopic Stat 05/27/18 00:12 Lactate (Lactic Acid) Stat 05/27/18 01:13 XR chest 1V Stat Benzocaine (Cepacol Lozenge) 1 each PO Q1HR PRN PRN Reason: Sore Throat Last Admin: 05/27/18 03:09 Dose: 1 each Hydromorphone HCl (Dilaudid) 1 mg IV Q4HR PRN PRN Reason: Pain, Moderate (4-6) Last Admin: 05/27/18 03:18 Dose: 1 mg Sodium Chloride (Normal Saline 0.9%) 1,000 mls @ 200 mls/hr IV CONT MUKUL Last Infusion: 05/27/18 01:43 Dose: 0 mls/hr Admin: 05/26/18 22:56 Dose: 200 mls/hr Sodium Chloride (Normal Saline 0.9%) 1,000 mls @ 125 mls/hr IV CONT MUKUL Last Admin: 05/27/18 01:54 Dose: 125 mls/hr Ondansetron HCl (Zofran) 4 mg IV Q4HR PRN PRN Reason: Nausea And Vomiting Discontinued Medications Hydromorphone HCl (Dilaudid) 1 mg IV Q15M MUKUL Stop: 05/26/18 23:01 Last Admin: 05/27/18 00:09 Dose: 1 mg Admin: 05/26/18 22:56 Dose: 1 mg Midazolam HCl (Versed) 2 mg IV NOW ONE Stop: 05/27/18 01:00 Last Admin: 05/27/18 01:00 Dose: 2 mg Non-Formulary Medication (Medizolam) 2 mg IV NOW ONE Stop: 05/27/18 00:42 Last Admin: 05/27/18 00:53 Dose: 2 mg Ondansetron HCl (Zofran) 4 mg IV NOW ONE Stop: 05/26/18 22:36 Last Admin: 05/26/18 22:56 Dose: 4 mg Vital Signs - 8 hr 05/26/18 21:55 05/26/18 23:46 05/27/18 00:15 Temperature 100.1 F H 99.4 F Pulse Rate 110 H 98 H 93 H Respiratory Rate 36 H 12 15 Blood Pressure 134/86 Blood Pressure [Right Wrist] 107/48 L 121/62 Pulse Oximetry 98 94 98 05/27/18 01:06 05/27/18 02:00 Temperature 98.2 F Pulse Rate 101 H 91 H Respiratory Rate 19 20 Blood Pressure 128/79 Blood Pressure [Right Wrist] 104/67 Pulse Oximetry 93 95 MDM - Abdominal Pain Lab Data Result diagrams: 05/26/18 22:55 05/26/18 22:55 Lab Results 05/26/18 05/26/18 05/26/18 Range/Units 22:50 22:55 22:55 WBC 12.7 H (4.5-11.0) X10^3/uL RBC 4.41 (4.0-5.2) X10^6/uL Hgb 13.1 (12.0-16.0) g/dL Hct 37.9 (36-46) % MCV 86.0 (80-100) fL MCH 29.7 (26-34) PG MCHC 34.5 (30-36) % RDW 13.5 (11.6-14.8) % Plt Count 357 (150-400) X10^3/uL Neut % (Auto) 85.7 H (50-75) % Lymph % (Auto) 8.6 L (25-40) % [place] % (Auto) 5.1 (3-14) % Eos % (Auto) 0.0 L (2-4) % Baso % (Auto) 0.6 (0-2) % Neut # (Auto) 26064 H (5462-9485) /uL Sodium 138 (137-145) mmol/L Potassium 3.9 (3.4-5.1) mmol/L Chloride 100 (98-107) mmol/L Carbon Dioxide 24 (22-32) mmol/L BUN 18 H (7-17) mg/dL Creatinine 0.60 (0.52-1.04) mg/dL Estimated GFR > 60.0 (>60) mL/min BUN/Creatinine Ratio 30.0 H (6-22) Glucose 114 H (70-100) mg/dL Lactate 1.3 (0.7-2.1) mmol/L Calcium 9.4 (8.4-10.2) mg/dL Total Bilirubin 0.7 (0.2-1.3) mg/dL AST 23 (14-36) IU/L ALT 28 (9-52) IU/L Alkaline Phosphatase 99 (38-126) U/L Total Protein 7.3 (6.3-8.2) g/dL Albumin 3.8 (3.5-5.0) g/dL Globulin 3.5 (1.7-4.1) g/dL Albumin/Globulin Ratio 1.1 (1.0-2.8) Lipase 18 L (23-300) U/L Urine RBC (0-5/HPF) Urine WBC (0-5/HPF) Ur Squamous Epith Cells Urine Bacteria (None) Hyaline Casts (None) Urine Mucus (Negative) Ur Culture Indicated? Micro UA Comment 05/26/ Range/Units 23:20 WBC (4.5-11.0) X10^3/uL RBC (4.0-5.2) X10^6/uL Hgb (12.0-16.0) g/dL Hct (36-46) % MCV (80-100) fL MCH (26-34) PG MCHC (30-36) % RDW (11.6-14.8) % Plt Count (150-400) X10^3/uL Neut % (Auto) (50-75) % Lymph % (Auto) (25-40) % [place] % (Auto) (3-14) % Eos % (Auto) (2-4) % Baso % (Auto) (0-2) % Neut # (Auto) (3068-9010) /uL Sodium (137-145) mmol/L Potassium (3.4-5.1) mmol/L Chloride (98-107) mmol/L Carbon Dioxide (22-32) mmol/L BUN (7-17) mg/dL Creatinine (0.52-1.04) mg/dL Estimated GFR (>60) mL/min BUN/Creatinine Ratio (6-22) Glucose (70-100) mg/dL Lactate (0.7-2.1) mmol/L Calcium (8.4-10.2) mg/dL Total Bilirubin (0.2-1.3) mg/dL AST (14-36) IU/L ALT (9-52) IU/L Alkaline Phosphatase (38-126) U/L Total Protein (6.3-8.2) g/dL Albumin (3.5-5.0) g/dL Globulin (1.7-4.1) g/dL Albumin/Globulin Ratio (1.0-2.8) Lipase (23-300) U/L Urine RBC 0-1/hpf (0-5/HPF) Urine WBC 0-1/hpf (0-5/HPF) Ur Squamous Epith Cells 5-10 /hpf H Urine Bacteria Moderate (10-30) H (None) Hyaline Casts 0-1/lpf (None) Urine Mucus 1+ H (Negative) Ur Culture Indicated? Cult not indicated Micro UA Comment Not Reportable Point of care testing: Urine Dip Bedside Urine Glucose Negative Bedside Urine Bilirubin ++ 2 Bedside Urine Ketone ++ 40 Urine Specific [place] 1.015 Bedside Urine Occult Blood - Negative Bedside Urine pH 6.0 Bedside Urine Protein +/- 15 Bedside Urine Urobilinogen +/- 1mg Bedside Urine Nitrite - Negative Bedside Urine Leukocytes - Negative Esterase Imaging Data CT scan - abdomen: Radiologist's impression: Small-bowel obstruction likely due to adhesions in the pelvis. Wall thickening free fluid wave and possibility of early bowel ischemia. No free air. Results were discussed with the [facility] radiologist, Dr. Rivas. MDM Narrative Medical decision making narrative: I discussed the patient's presentation,exam , labs and CT findings with the on-call surgeon, Dr. Levy. Dr. Levy was incidentally her attending at the time of her last admission. Although there was a concern raised about ischemic bowel With the radiologist, the lack of fever and labs are reassuring. An NG tube has been ordered, she will admitted to Dr. Levy's service. Discharge Plan Departure Patient Disposition: Admitted As Inpatient Clinical Impression: Small bowel obstruction Discharge Date/Time: 05/27/18 01:42 Interventions: ED Discharge Assessment Last Done: 05/27/18 01:41 Admit Date/Time: 05/27/18 00:37 Admit Provider: Tate Levy
[2018-05-26] MEDS: ONDANSETRON 4 MG/2 ML INJ IV (22:56)
[2018-05-26] MEDS: HYDROMORPHONE 1 MG INJ IV (22:56)
[2018-05-26] MEDS: SODIUM CHLORIDE 0.9% 1,000 ML 200 ML IV (22:56)
[2018-05-26 23:06] LABS: Add Manual Diff / Slide Review NO; Basophils Percent Auto 0.6 % (0-2); Hematocrit 37.9 % (36-46); Hemoglobin 13.1 g/dL (12.0-16.0); Lymphocytes Percent Auto 8.6 % (25-40); Mean Corpuscular HGB Conc 34.5 % (30-36); Mean Corpuscular Hemoglobin 29.7 PG (26-34); Monocytes Percent Auto 5.1 % (3-14); Neutrophils Absolute Auto 10900 /uL (1500-7000); Neutrophils Percent Auto 85.7 % (50-75); Platelet Count 357 X10^3/uL (150-400); Red Blood Cell Count 4.41 X10^6/uL (4.0-5.2); Red Cell Distribution Width 13.5 % (11.6-14.8); White Blood Cell Count 12.7 X10^3/uL (4.5-11.0)
[2018-05-26 23:15] LABS: Alanine Aminotransferase 28 IU/L (9-52); Albumin 3.8 g/dL (3.5-5.0); Albumin Globulin Ratio 1.1 (1.0-2.8); Alkaline Phosphatase 99 U/L (38-126); Aspartate Aminotransferase 23 IU/L (14-36); Bilirubin Total 0.7 mg/dL (0.2-1.3); Blood Urea Nitrogen 18 mg/dL (7-17); Calcium 9.4 mg/dL (8.4-10.2); Carbon Dioxide 24 mmol/L (22-32); Chloride 100 mmol/L (98-107); Estimated Glomerular Filt Rate > 60.0 mL/min (>60); Globulin 3.5 g/dL (1.7-4.1); Glucose 114 mg/dL (70-100); HEMOLYSIS 19 (0-50); Lipase 18 U/L (23-300); Potassium 3.9 mmol/L (3.4-5.1); Sodium 138 mmol/L (137-145); Total Protein 7.3 g/dL (6.3-8.2)
[2018-05-26 23:46] VITALS: BP 107/48; PULSE 98; RESP 12; O2SAT 94
[2018-05-26 23:52] LABS: Bacteria Urine Moderate (10-30); Culture Indicated Urine Cult Not Indicated; Hyaline Casts Urine 0-1/LPF; Mucus Urine 1+ (Negative); RBC Urine 0-1/HPF (0-5/HPF); Squamous Epithelial Cell Urine 5-10 /HPF; WBC Urine 0-1/HPF (0-5/HPF)
[2018-05-27] VITALS (10 sets, daily range): BP systolic 104–130; BP diastolic 60–79; PULSE 75–101; RESP 15–20; TEMP 36.3–37.4; O2SAT 93–98; BMI 44.2
[2018-05-27] MEDS: HYDROMORPHONE 1 MG INJ IV (00:09)
[2018-05-27 00:22] LABS: Lactate (Lactic Acid) 1.3 mmol/L (0.7-2.1)
[2018-05-27] MEDS: [UNRECOGNIZED DRUG - OTHER] 2 EACH IV (00:53)
[2018-05-27] MEDS: MIDAZOLAM 2 MG/2 ML VIAL IV (01:00)
--- NOTE | 2018-05-27 01:01 | PC.NURSE ---
16fr NG inserted into left nare. Pt requested some mild sedation for procedure, provider ordered 2mg versed. a second dose of 2mg versed 16fr NG inserted to 54cm nick at nare. 500ml of yellowish fluid imideatley returned into suction canister. Pt reports that wasn't too bad but I still remember you were here. Pt tolerated procedure well.
--- NOTE | 2018-05-27 01:13 | DI.RAD.S_ITS ---
PROCEDURE: XR CHEST 1V INDICATIONS: ng tuble placment TECHNIQUE: One view of the chest was acquired. COMPARISON: [facility], CR, XR CHEST FOR PICC 1V, 05/02/2018, 10:19. FINDINGS: Surgical changes and devices: Enteric tube tip is in the region of stomach lumen below the left hemidiaphragm.. Lungs and pleura: No pleural effusions or pneumothorax. Lungs are clear. Mediastinum: Mediastinal contours appear normal. Heart size is enlarged. Bones and chest wall: No suspicious bony lesions. Overlying soft tissues appear unremarkable. IMPRESSION: Enteric tube tip is in the region of stomach lumen below the left hemidiaphragm. No acute cardiopulmonary pathology. Dictated by: Luciano Barahona M.D. on 05/27/2018 at 9:48 Approved by: Luciano Barahona M.D. on 05/27/2018 at 9:49
--- NOTE | 2018-05-27 01:43 | PC.NURSE ---
NS to continue in acute care
--- NOTE | 2018-05-27 01:44 | PC.NURSE ---
MARLEE placment confirmed with Xray per TENNILLE
[2018-05-27] MEDS: SODIUM CHLORIDE 0.9% 1,000 ML 125 ML IV ×4 (01:54→20:58)
[2018-05-27] MEDS: BENZOCAINE/MENTHOL 1 LOZ PKT 1 EACH PO ×4 (03:09→18:10)
[2018-05-27] MEDS: HYDROMORPHONE 2 MG INJ 1 MG IV ×2 (03:18→07:53)
--- NOTE | 2018-05-27 04:49 | PC.NURSE ---
Pt. admitted at 0145 for recurrent SBO. Pt. arrived on the unit via stretcher, MAW, transfer from stretcher to bed with very little assistance. Oriented to room, bed controls and call light provided and belongings within reach on the bedside overbed table. NGT to left nare intact and connect to LIS with brown fluid drainage. Pts. abdomen slightly distended and LLQ tender to palpation. Pt. c/o sore throat due to NGT and requested sore throat lozenge, provided after order obtained from . Pt. also c/o crampy constant abd. pain, medicated with dilaudid 1 mg. and pt. fell asleep. Continue to monitor.
[2018-05-27] MEDS: ONDANSETRON 4 MG/2 ML INJ IV (07:56)
--- NOTE | 2018-05-27 08:25 | P.HP_ITS ---
History of Present Illness Date Patient Seen: 05/27/18 Time Patient Seen: 08:16 Chief complaint: ABD PAIN THROWING UP Narrative: 53-year-old female well known to me from previous admission for small bowel obstruction requiring laparotomy on April 25, 2018 with extensive lysis of adhesion whose postoperative course was complicated by prolonged ileus that subsequently resolved. She was discharged from the hospital approximately postoperative day 15 but returned within a week after discharge to the outpatient clinic complaining of progressive abdominal pain, nausea, and vomiting. Examination and evaluation were consistent with recurrent small bowel obstruction at that time. She was recommended to be admitted on May 16, [address] scan and laboratory studies which confirmed recurrent bowel obstruction. She had significant inflammatory changes postoperatively as anticipated as well. At that time she wished to attend a [employer] concert for her grandchildren than receive delivery of a [place] present she had ordered for the children in [place], [place]. While in [place], [place] that evening she began to experience more severe abdominal pain, nausea, and vomiting. She presented to the [facility] Emergency Department and was admitted. She was managed non operatively for approximately 1 week and release from the hospital yesterday morning. She did not require any further surgical intervention. She responded to nasogastric tube decompression and short-term TPN via PICC line. This history is obtained from the patient herself since I do not have access to those records from [facility] at this time. She informs me that she was actually feeling much better and tolerating essentially regular diet at the time of discharge joann day. She had a bowel movement yesterday which she reports was normal. However within 8-10 hours following release from the hospital she began to experience progressive abdominal pain, especially in the left lower quadrant region. She began to have nausea and vomiting of bilious fluid as well. She presented the emergency department at this facility last night for such. She continues to have left lower quadrant abdominal pain. Nasogastric tube was inserted which has help with her nausea, but she is now complaining of throat irritation due to the tube. No subjective fever or chills. No chest pain or shortness of breath. No dysuria or hematuria. Patient History Medical History Anxiety disorder (Acute) Morbid obesity with BMI of 45.0-49.9, adult (Acute) Small bowel obstruction due to adhesions (Acute) HTN (hypertension) (Chronic) Migraine (Chronic) Postoperative ileus (Resolved) Surgical History Status post exploratory laparotomy (Acute) Status post appendectomy (Resolved) Status post hysterectomy (Resolved) Family & Social History Family History: Reviewed 05/27/18 by Tate Levy MD Social History: household members significant other,family Prior Living Arrangements House Safety & Behavioral: Feels Safe in Current Yes Environment Been Physically Hurt or No Threatened By a Person Suicidal Ideation Description None Suicide Plan Description No Plan Tobacco & Substance use: Smoking Status Former smoker alcohol intake frequency holiday/special occasion Substance Use Type does not use Meds Home Medications Medication Instructions Recorded Confirmed Type lisinopril 10 mg PO DAILY 04/21/18 05/27/18 History docusate sodium [Colace] 100 mg PO BID #14 cap 05/10/18 05/27/18 Rx ibuprofen 800 mg PO QID PRN #60 tab 05/10/18 05/27/18 Rx lorazepam [Ativan] 1 mg PO BID-TID PRN #30 tab 05/10/18 05/27/18 Rx ondansetron HCl [Zofran] 4 mg PO Q6-8H PRN #14 tab 05/10/18 05/27/18 Rx pantoprazole [Protonix] 40 mg PO DAILY #30 tab 05/10/18 05/27/18 Rx sennosides [Senokot] 8.6 mg PO BEDTIME #10 tab 05/10/18 05/27/18 Rx Allergies Allergy/AdvReac Type Severity Reaction Status Date / Time Penicillins Allergy Intermediate Hives Verified 05/26/18 21:55 ranitidine [From Zantac] Allergy Intermediate Hives Verified 05/26/18 21:55 Review of Systems Review of Systems All systems reviewed & are unremarkable except as noted in HPI and below Exam Vital Signs (past 8 hours): - 05/27/18 01:06 05/27/18 02:00 05/27/18 04:30 Temperature 98.2 F 98.2 F Pulse Rate 101 H 91 H 85 Respiratory Rate 19 20 16 Blood Pressure 128/79 110/61 Blood Pressure [Right Wrist] 104/67 Pulse Oximetry 93 95 94 Oxygen Delivery Method Room Air Narrative Exam Narrative: Well-nourished well-developed obese female in no acute distress. Alert oriented x3. Nasogastric tube is in place draining extremely bilious fluid. Tube is functioning well Chest clear to auscultation bilaterally without crackles or wheezes. Regular rate and rhythm. Abdomen is obese but soft. She is minimally distended. She is focally tender in the left lower quadrant. No guarding or rebound, but she does have moderate tenderness on examination this morning. No masses. No ascites. Her midline incision is healing nicely without evidence of any issues or hernias. Extremities show no clubbing or cyanosis Objective Labs Result Diagrams: 05/26/18 22:55 05/26/18 22:55 Labs: Laboratory Results - last 24 hr 05/26/18 05/26/18 05/26/18 22:50 22:55 22:55 WBC 12.7 H RBC 4.41 Hgb 13.1 Hct 37.9 MCV 86.0 MCH 29.7 MCHC 34.5 RDW 13.5 Plt Count 357 Neut % (Auto) 85.7 H Lymph % (Auto) 8.6 L [place] % (Auto) 5.1 Eos % (Auto) 0.0 L Baso % (Auto) 0.6 Neut # (Auto) 73094 H Sodium 138 Potassium 3.9 Chloride 100 Carbon Dioxide 24 BUN 18 H Creatinine 0.60 Estimated GFR > 60.0 BUN/Creatinine Ratio 30.0 H Glucose 114 H Lactate 1.3 Calcium 9.4 Total Bilirubin 0.7 AST 23 ALT 28 Alkaline Phosphatase 99 Total Protein 7.3 Albumin 3.8 Globulin 3.5 Albumin/Globulin Ratio 1.1 Lipase 18 L Urine RBC Urine WBC Ur Squamous Epith Cells Urine Bacteria Hyaline Casts Urine Mucus Ur Culture Indicated? Micro UA Comment 05/26/18 23:20 WBC RBC Hgb Hct MCV MCH MCHC RDW Plt Count Neut % (Auto) Lymph % (Auto) [place] % (Auto) Eos % (Auto) Baso % (Auto) Neut # (Auto) Sodium Potassium Chloride Carbon Dioxide BUN Creatinine Estimated GFR BUN/Creatinine Ratio Glucose Lactate Calcium Total Bilirubin AST ALT Alkaline Phosphatase Total Protein Albumin Globulin Albumin/Globulin Ratio Lipase Urine RBC 0-1/hpf Urine WBC 0-1/hpf Ur Squamous Epith Cells 5-10 /hpf H Urine Bacteria Moderate (10-30) H Hyaline Casts 0-1/lpf Urine Mucus 1+ H Ur Culture Indicated? Cult not indicated Micro UA Comment Not Reportable I have personally reviewed her CT scan of the abdomen and pelvis done through the emergency department last evening and compared to the study done May. There is essentially no change, but she has diffuse inflammatory changes as well as moderate dilatation of the small bowel throughout. The left lower quadrant shows significant adhesions and inflammatory changes but no free air. No significant free fluid. No abscess. Assessment & Plan Plan: Assessment/Plan Narrative: 53-year-old female with recurrent small bowel obstruction likely due to inflammatory adhesions 1 month after laparotomy with extensive lysis of adhesions for same. Again, surgical intervention would carry significant risk of infection, bowel injury, fistula, or leakage. In addition, the inflammatory adhesions at this point may be technically impossible to lyse adequately. Therefore, I reiterated my recommendation for non operative management if at all possible. I see no evidence of ischemic bowel currently, but I am concerned that she may evolve to more complete obstruction or even possibly ischemia. Therefore continue bowel rest and nasogastric tube decompression. Aggressive IV fluid resuscitation. She is likely to require PICC line insertion and TPN once again. Ativan ordered for anxiety, especially related to the nasogastric tube. Out of bed as tolerated. Repeat laboratory studies and plain abdominal x-rays tomorrow. We will follow her closely, and if she does not improve as anticipated that she may have no choice but to undergo laparotomy again. I discussed this with her in detail. All questions were answered to her satisfaction, and she voiced understanding. Orders were written. In the interim we will attempt to obtain the records from [facility]. Quality VTE Deep Vein Thrombosis/Pulmonary Embolism Present on Admission: Yes
--- NOTE | 2018-05-27 09:22 | PC.NURSE ---
0910 Pt resting in bed, NGT patent, billy . Pt NPO except taking in sml amts ice chips. 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 Pt inst on use. bowel tones +. IVF infusing.
[2018-05-27] MEDS: PANTOPRAZOLE 40 MG VIAL IV (09:54)
--- NOTE | 2018-05-27 11:14 | CM.DANOTE ---
Patient is a 53 year old female FRANCY who was admitted today 05/27/18 for Partial Bowel Obstruction. Pt has [facility] and [facility] and no listed PCP. EMR was reviewed. Per MD, pt has partial bowel obstruction and started with NG Tube. SW met bedside with pt and explained role and pt confirmed that she lives at home in [place] with her life partner of 23 years and recently her grandkids moved in with them. Pt is typically Independent with ADL's at baseline but since pt's initial admit to [facility] on 04/21/18-05/10/18 she has been in and out of the hospital. Pt states that she discharged home from [facility] and was feeling alright but then recently was in [facility] and developed pain and was admitted to [facility] for a few days and was then discharged home and ended up in [facility] ER on the same day and was admitted to the Acute floor today. During pt's last admit, she was successfully enrolled in healthcare insurance. Patient unsure of d/c needs at this time and SW following closely to determine barriers and needs at discharge pending possible surgery. Plan: SW to follow closely to determine d/c planning needs and possible surgery pending pt's progress. 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 No Advance Directives on File No History Provided By Patient Medical Record Has Patient been admitted in last 30 Yes days? Comment Last discharged [facility] on 05/10/18 after SBO Prior Living Arrangements House Household Members significant other family Type of transporation used prior to Drives own vehicle admit Comment Lives at home with long time Life Partner and two grandchildren. Independent with ADL's Yes Is patient alert and oriented? Yes Caregiver for Another Yes: 2 grandchildren now living in their home Comment Patient was typically Independent at baseline but since her admit in Apr 2018 pt has been in and out of the hospital for SBO issues and needing assist from family. Comment D/C needs unclear at this time . Discharge Plan Home Transportation Arrangement Significant other likely can provide transport at d/c. Additional Comment Needs unclear at this time. Whiteboard Updated in Patient Room with Yes name and ext. # of Timber Harvester Operator Review Status In Process Please Provide Date Initial DC 05/27/18 Assessment Was Performed Next Review Type Continued Stay Review
[2018-05-27] MEDS: HYDROMORPHONE PCA 6 MG/30 ML PCA.VIAL 2 MG IV (13:33)
--- NOTE | 2018-05-27 14:55 | PM.PN.1 ---
Subjective Date Patient Seen: 05/27/18 Time Patient Seen: 14:55 Interval history: Patient seen and examined again this afternoon after initial admission this morning. She is feeling better. Pain has diminished and is well controlled with NUB CARD TENDER currently. Nasogastric tube output remains at about 200-300 cc of bilious fluid this shift. However, the patient denies any nausea or vomiting. She is tolerating the nasogastric tube currently with the use of Cepacol lozenges and ice chips. Pain remains intermittent in the left lower quadrant region only. No flatus or bowel movement today. She is hungry now that she is feeling mildly better. No chest pain or shortness of breath. No dysuria. No subjective fever or chills. Exam Vital Signs (past 8 hours): - 05/27/18 08:20 05/27/18 09:36 05/27/18 13:29 Temperature 97.9 F 97.4 F L Pulse Rate 81 75 Respiratory Rate 16 16 Blood Pressure 129/72 127/67 Pulse Oximetry 94 97 98 Oxygen Delivery Method Room Air Narrative Exam Narrative: Resting comfortably in bed in no acute distress. Communicating with her family via cell phone since it is her grandson's birthday alliance party today at home. Alert oriented x3 Regular rate and rhythm Abdomen soft and nondistended. She is not tympanitic. She has bowel sounds. She remains tender in the left lower quadrant but much less so when compared to her examination at admission. No guarding or rebound involuntarily. No masses. Objective Labs Result Diagrams: 05/26/18 22:55 05/26/18 22:55 Labs: Laboratory Results - last 24 hr 05/26/18 05/26/18 05/26/18 22:50 22:55 22:55 WBC 12.7 H RBC 4.41 Hgb 13.1 Hct 37.9 MCV 86.0 MCH 29.7 MCHC 34.5 RDW 13.5 Plt Count 357 Neut % (Auto) 85.7 H Lymph % (Auto) 8.6 L [place] % (Auto) 5.1 Eos % (Auto) 0.0 L Baso % (Auto) 0.6 Neut # (Auto) 04835 H Sodium 138 Potassium 3.9 Chloride 100 Carbon Dioxide 24 BUN 18 H Creatinine 0.60 Estimated GFR > 60.0 BUN/Creatinine Ratio 30.0 H Glucose 114 H Lactate 1.3 Calcium 9.4 Total Bilirubin 0.7 AST 23 ALT 28 Alkaline Phosphatase 99 Total Protein 7.3 Albumin 3.8 Globulin 3.5 Albumin/Globulin Ratio 1.1 Lipase 18 L Urine RBC Urine WBC Ur Squamous Epith Cells Urine Bacteria Hyaline Casts Urine Mucus Ur Culture Indicated? Micro UA Comment 05/26/18 23:20 WBC RBC Hgb Hct MCV MCH MCHC RDW Plt Count Neut % (Auto) Lymph % (Auto) [place] % (Auto) Eos % (Auto) Baso % (Auto) Neut # (Auto) Sodium Potassium Chloride Carbon Dioxide BUN Creatinine Estimated GFR BUN/Creatinine Ratio Glucose Lactate Calcium Total Bilirubin AST ALT Alkaline Phosphatase Total Protein Albumin Globulin Albumin/Globulin Ratio Lipase Urine RBC 0-1/hpf Urine WBC 0-1/hpf Ur Squamous Epith Cells 5-10 /hpf H Urine Bacteria Moderate (10-30) H Hyaline Casts 0-1/lpf Urine Mucus 1+ H Ur Culture Indicated? Cult not indicated Micro UA Comment Not Reportable Assessment & Plan Plan: Assessment/Plan Narrative: 53-year-old female with recurrent small bowel obstruction with transition point in the left lower quadrant region which is consistent with her examination and symptoms. However, she appears somewhat improved since admission this morning. My suspicion for mesenteric ischemia or other acute process is much less at this time. Again, she is doing better throughout the afternoon. We will continue the current management. She had multiple questions regarding the pathophysiology and natural history of bowel obstruction secondary to adhesions as well as the function of the NG tube. I reviewed these with her in detail. All questions were answered to her satisfaction, and she voiced understanding. Quality VTE Deep Vein Thrombosis/Pulmonary Embolism Present on Admission: Yes
--- NOTE | 2018-05-27 14:58 | P.PN_ITS ---
Subjective Date Patient Seen: 05/27/18 Time Patient Seen: 14:55 Interval history: Patient seen and examined again this afternoon after initial admission this morning. She is feeling better. Pain has diminished and is well controlled with LONG TERM CARE ADMINISTRATOR currently. Nasogastric tube output remains at about 200-300 cc of bilious fluid this shift. However, the patient denies any nausea or vomiting. She is tolerating the nasogastric tube currently with the use of Cepacol lozenges and ice chips. Pain remains intermittent in the left lower quadrant region only. No flatus or bowel movement today. She is hungry now that she is feeling mildly better. No chest pain or shortness of breath. No dysuria. No subjective fever or chills. Exam Vital Signs (past 8 hours): - 05/27/18 08:20 05/27/18 09:36 05/27/18 13:29 Temperature 97.9 F 97.4 F L Pulse Rate 81 75 Respiratory Rate 16 16 Blood Pressure 129/72 127/67 Pulse Oximetry 94 97 98 Oxygen Delivery Method Room Air Narrative Exam Narrative: Resting comfortably in bed in no acute distress. Communicating with her family via cell phone since it is her grandson's birthday libertarian today at home. Alert oriented x3 Regular rate and rhythm Abdomen soft and nondistended. She is not tympanitic. She has bowel sounds. She remains tender in the left lower quadrant but much less so when compared to her examination at admission. No guarding or rebound involuntarily. No masses. Objective Labs Result Diagrams: 05/26/18 22:55 05/26/18 22:55 Labs: Laboratory Results - last 24 hr 05/26/18 05/26/18 05/26/18 22:50 22:55 22:55 WBC 12.7 H RBC 4.41 Hgb 13.1 Hct 37.9 MCV 86.0 MCH 29.7 MCHC 34.5 RDW 13.5 Plt Count 357 Neut % (Auto) 85.7 H Lymph % (Auto) 8.6 L [place] % (Auto) 5.1 Eos % (Auto) 0.0 L Baso % (Auto) 0.6 Neut # (Auto) 12293 H Sodium 138 Potassium 3.9 Chloride 100 Carbon Dioxide 24 BUN 18 H Creatinine 0.60 Estimated GFR > 60.0 BUN/Creatinine Ratio 30.0 H Glucose 114 H Lactate 1.3 Calcium 9.4 Total Bilirubin 0.7 AST 23 ALT 28 Alkaline Phosphatase 99 Total Protein 7.3 Albumin 3.8 Globulin 3.5 Albumin/Globulin Ratio 1.1 Lipase 18 L Urine RBC Urine WBC Ur Squamous Epith Cells Urine Bacteria Hyaline Casts Urine Mucus Ur Culture Indicated? Micro UA Comment 05/26/18 23:20 WBC RBC Hgb Hct MCV MCH MCHC RDW Plt Count Neut % (Auto) Lymph % (Auto) [place] % (Auto) Eos % (Auto) Baso % (Auto) Neut # (Auto) Sodium Potassium Chloride Carbon Dioxide BUN Creatinine Estimated GFR BUN/Creatinine Ratio Glucose Lactate Calcium Total Bilirubin AST ALT Alkaline Phosphatase Total Protein Albumin Globulin Albumin/Globulin Ratio Lipase Urine RBC 0-1/hpf Urine WBC 0-1/hpf Ur Squamous Epith Cells 5-10 /hpf H Urine Bacteria Moderate (10-30) H Hyaline Casts 0-1/lpf Urine Mucus 1+ H Ur Culture Indicated? Cult not indicated Micro UA Comment Not Reportable Assessment & Plan Plan: Assessment/Plan Narrative: 53-year-old female with recurrent small bowel obstruction with transition point in the left lower quadrant region which is consistent with her examination and symptoms. However, she appears somewhat improved since admission this morning. My suspicion for mesenteric ischemia or other acute process is much less at this time. Again, she is doing better throughout the afternoon. We will continue the current management. She had multiple questions regarding the pathophysiology and natural history of bowel obstruction secondary to adhesions as well as the function of the NG tube. I reviewed these with her in detail. All questions were answered to her satisfaction, and she voiced understanding. Quality VTE Deep Vein Thrombosis/Pulmonary Embolism Present on Admission: Yes
--- NOTE | 2018-05-27 15:19 | CM.DPNOTE ---
[facility] DAVI faxed pt's initial clinicals to [facility] to review for pt's admission to the hospital. BRENDAN Daniels
[2018-05-27] MEDS: HYDROMORPHONE PCA 6 MG/30 ML PCA.VIAL IV (21:40)
[2018-05-28] VITALS (7 sets, daily range): BP systolic 124–161; BP diastolic 75–82; PULSE 81–87; RESP 16–18; TEMP 36.6–37; O2SAT 94–98
--- NOTE | 2018-05-28 | DI.RAD.S_ITS ---
PROCEDURE: XR ACUTE ABDOMEN SERIES INDICATIONS: Small bowel obstruction TECHNIQUE: One view chest and two views of the abdomen were acquired. COMPARISON: [facility], CR, XR ABDOMEN MIN 2V, 05/06/2018, 6:31. [facility], CT, CT ABDOMEN PELVIS W CON, 05/26/2018, 23:29. [facility], CR, XR CHEST 1V, 05/27/2018, 1:42. [facility], CR, XR ACUTE ABDOMEN SERIES, 05/02/2018, 8:51. FINDINGS: Surgical changes and devices: Nasogastric tube present with tube tip projected over the gastric body. Chest: Lungs are clear. Heart size is normal. No pleural effusions. No pneumoperitoneum. Abdomen: Bowel gas pattern is normal. No suspicious calcifications. Visualized solid organ contours appear normal. Bones: No suspicious bony lesions. IMPRESSION: Resolved small bowel obstruction. Dictated by: Alfonso JACKSON Interpreted: Luciano Barahona MD on 05/28/2018 at 8:50 Approved by: Luciano Barahona M.D. on 05/28/2018 at 10:57
--- NOTE | 2018-05-28 | DI.RAD.S_ITS ---
PROCEDURE: FL SMALL BOWEL FOLLOW THROUGH INDICATIONS: Recurrent SBO COMPARISON: [facility], CT, CT ABDOMEN PELVIS W CON, 05/26/2018, 23:29. [facility], CR, XR ACUTE ABDOMEN SERIES, 05/28/2018, 5:24. [facility], RF, FL SMALL BOWEL FOLLOW THROUGH, 05/05/2018, 10:55. FINDINGS: Suboptimal evaluation as there is decreased amount of oral contrast secondary to patient emesis KUB: Preprocedural mill manager film demonstrates a normal bowel gas pattern. No suspicious abdominal calcifications. Visualized solid organ contours appear normal. No suspicious bony abnormalities. Small bowel: There is normal transit time of barium through the small bowel. Small bowel loops are of normal caliber throughout. Mucosal folds are smooth and of normal thickness. No strictures, intraluminal masses, or extrinsic mass effects are noted. The terminal ileum is identified, and is normal in morphology. IMPRESSION: No definite small bowel obstruction or transition point identified. Normal transit time of oral contrast material. Dictated by: Eloy Alexis M.D. on 05/28/2018 at 14:48 Approved by: Eloy Alexis M.D. on 05/28/2018 at 14:51
[2018-05-28] MEDS: BENZOCAINE/MENTHOL 1 LOZ PKT 1 EACH PO ×2 (05:44→08:43)
[2018-05-28] MEDS: HYDROMORPHONE PCA 6 MG/30 ML PCA.VIAL IV ×2 (05:44→14:56)
[2018-05-28] MEDS: SODIUM CHLORIDE 0.9% 1,000 ML 125 ML IV (05:45)
[2018-05-28 06:07] LABS: Add Manual Diff / Slide Review NO; Basophils Percent Auto 0.9 % (0-2); Eosinophils Percent Auto 1.9 % (2-4); Hematocrit 32.8 % (36-46); Hemoglobin 11.2 g/dL (12.0-16.0); Lymphocytes Percent Auto 21.6 % (25-40); Mean Corpuscular HGB Conc 34.1 % (30-36); Mean Corpuscular Hemoglobin 30.2 PG (26-34); Mean Corpuscular Volume 88.6 fL (80-100); Monocytes Percent Auto 12.4 % (3-14); Neutrophils Absolute Auto 4600 /uL (1500-7000); Neutrophils Percent Auto 63.2 % (50-75); Platelet Count 318 X10^3/uL (150-400); Red Cell Distribution Width 13.3 % (11.6-14.8); White Blood Cell Count 7.3 X10^3/uL (4.5-11.0)
[2018-05-28 06:13] LABS: Blood Urea Nitrogen 18 mg/dL (7-17); Calcium 8.1 mg/dL (8.4-10.2); Carbon Dioxide 22 mmol/L (22-32); Chloride 107 mmol/L (98-107); Estimated Glomerular Filt Rate > 60.0 mL/min (>60); Glucose 68 mg/dL (70-100); HEMOLYSIS 48 (0-50); Potassium 4.2 mmol/L (3.4-5.1); Sodium 143 mmol/L (137-145)
[2018-05-28 06:19] LABS: Lactate (Lactic Acid) 0.6 mmol/L (0.7-2.1)
[2018-05-28 06:33] LABS: Procalcitonin 0.09 ng/mL (<0.5)
[2018-05-28] MEDS: PANTOPRAZOLE 40 MG VIAL IV (08:43)
--- NOTE | 2018-05-28 10:36 | PM.PN.1 ---
Subjective Date Patient Seen: 05/28/18 Time Patient Seen: 10:37 Interval history: Patient states she is feeling more hungry today. She is passing flatus this morning. No bowel movement. No dysuria or hematuria. She has been out of bed without significant issue. Continues to have major complaint related to irritation from the nasogastric tube. No nausea or vomiting however. Her left lower quadrant abdominal pain is subsiding since admission. Continues to require Dilaudid MORTISING MACHINE OPERATOR intermittently however. Denies subjective significant distention. No pain elsewhere in the abdomen. No chest pain or shortness of breath. No subjective fever or chills. Exam Vital Signs (past 8 hours): - 05/28/18 05:45 05/28/18 07:00 05/28/18 07:30 Temperature 97.9 F 97.8 F Pulse Rate 81 83 Respiratory Rate 16 18 Blood Pressure 144/75 H 139/80 Pulse Oximetry 94 96 95 Oxygen Delivery Method Room Air Oxygen Flow Rate 0 Narrative Exam Narrative: Well-nourished well-developed female lying comfortably in bed in no acute distress. Alert oriented x3. No fever since admission. She is not tachycardic. Blood pressure remained stable. She has adequate urine output. Nasogastric tube is still moderately high, but it is unclear exactly how much of this are the ice chips she is taking. She requires ice chips for oral comfort given the irritation from the nasogastric tube. Regardless, the fluid in the canister is still quite bilious but clearing mildly. Chest clear auscultation bilaterally with regular rate rhythm. No crackles or wheezes. Abdomen is soft and nondistended. She remains tender in the left lower quadrant without guarding or rebound. She is essentially nontender elsewhere. Her midline incision is clean, dry, and intact without erythema or ecchymosis. No incisional hernias. Extremities show no clubbing or cyanosis Objective Labs Result Diagrams: 05/28/18 05:56 05/28/18 05:56 Labs: Laboratory Results - last 24 hr 05/28/18 05/28/18 05/28/18 05:56 05:56 05:56 WBC 7.3 RBC 3.70 L Hgb 11.2 L Hct 32.8 L MCV 88.6 MCH 30.2 MCHC 34.1 RDW 13.3 Plt Count 318 Neut % (Auto) 63.2 D Lymph % (Auto) 21.6 L [place] % (Auto) 12.4 Eos % (Auto) 1.9 L Baso % (Auto) 0.9 Neut # (Auto) 4600 Sodium 143 Potassium 4.2 Chloride 107 Carbon Dioxide 22 BUN 18 H Creatinine 0.50 L Estimated GFR > 60.0 BUN/Creatinine Ratio 36.0 H Glucose 68 L Lactate Calcium 8.1 L Procalcitonin 0.09 05/28/18 05:56 WBC RBC Hgb Hct MCV MCH MCHC RDW Plt Count Neut % (Auto) Lymph % (Auto) [place] % (Auto) Eos % (Auto) Baso % (Auto) Neut # (Auto) Sodium Potassium Chloride Carbon Dioxide BUN Creatinine Estimated GFR BUN/Creatinine Ratio Glucose Lactate 0.6 L Calcium Procalcitonin Her lactate and procalcitonin levels are completely normal. White blood cell count is return to normal as well. Electrolytes are stable. Normal creatinine. Three-view abdominal x-ray series has been done today, and I have personally reviewed these films. No pulmonary infiltrates. No free air. She has gas and stool throughout the colon. Paucity of gas in the small bowel although the left lower quadrant loop remains visible but is not markedly dilated. No air-fluid level in the left lower quadrant. Assessment & Plan Plan: Assessment/Plan Narrative: 53-year-old female with recurrent partial small bowel obstruction which appears to be clinically improving since admission 2 days ago. However, I am unable to ascertain whether the small bowel loops are simply fluid filled on plain x-ray. Her NG tube output remains bilious which is mildly concerning for ongoing obstruction. I will therefore obtain a small-bowel follow-through with Gastrografin through the NG tube today. If small bowel follow-through shows contrast to the colon without significant delayed transit then I will clamp the NG tube and attempt to remove it tomorrow if she tolerates this. If the small-bowel follow-through today demonstrates ongoing obstruction in the nasogastric tube will need to be continued to low intermittent wall suction. Under those circumstances she will also require PICC line placement and reinstitution of TPN support. I discussed this with her today. Otherwise she may be out of bed as tolerated. No indication for antibiotics at this stage. Continue MORTISING MACHINE OPERATOR. Changed to maintenance IV fluids. No indication for surgical intervention at this time as well. I am hopeful that she will continue to improve over the next 2-3 days. All questions were answered to her satisfaction, and she voiced understanding. Orders were written. Quality VTE Deep Vein Thrombosis/Pulmonary Embolism Present on Admission: Yes
--- NOTE | 2018-05-28 10:43 | P.PN_ITS ---
Subjective Date Patient Seen: 05/28/18 Time Patient Seen: 10:37 Interval history: Patient states she is feeling more hungry today. She is passing flatus this morning. No bowel movement. No dysuria or hematuria. She has been out of bed without significant issue. Continues to have major complaint related to irritation from the nasogastric tube. No nausea or vomiting however. Her left lower quadrant abdominal pain is subsiding since admission. Continues to require Dilaudid WATCH INSPECTOR FINAL MOVEMENT intermittently however. Denies subjective significant distention. No pain elsewhere in the abdomen. No chest pain or shortness of breath. No subjective fever or chills. Exam Vital Signs (past 8 hours): - 05/28/18 05:45 05/28/18 07:00 05/28/18 07:30 Temperature 97.9 F 97.8 F Pulse Rate 81 83 Respiratory Rate 16 18 Blood Pressure 144/75 H 139/80 Pulse Oximetry 94 96 95 Oxygen Delivery Method Room Air Oxygen Flow Rate 0 Narrative Exam Narrative: Well-nourished well-developed female lying comfortably in bed in no acute distress. Alert oriented x3. No fever since admission. She is not tachycardic. Blood pressure remained stable. She has adequate urine output. Nasogastric tube is still moderately high, but it is unclear exactly how much of this are the ice chips she is taking. She requires ice chips for oral comfort given the irritation from the nasogastric tube. Regardless, the fluid in the canister is still quite bilious but clearing mildly. Chest clear auscultation bilaterally with regular rate rhythm. No crackles or wheezes. Abdomen is soft and nondistended. She remains tender in the left lower quadrant without guarding or rebound. She is essentially nontender elsewhere. Her midline incision is clean, dry, and intact without erythema or ecchymosis. No incisional hernias. Extremities show no clubbing or cyanosis Objective Labs Result Diagrams: 05/28/18 05:56 05/28/18 05:56 Labs: Laboratory Results - last 24 hr 05/28/18 05/28/18 05/28/18 05:56 05:56 05:56 WBC 7.3 RBC 3.70 L Hgb 11.2 L Hct 32.8 L MCV 88.6 MCH 30.2 MCHC 34.1 RDW 13.3 Plt Count 318 Neut % (Auto) 63.2 D Lymph % (Auto) 21.6 L [place] % (Auto) 12.4 Eos % (Auto) 1.9 L Baso % (Auto) 0.9 Neut # (Auto) 4600 Sodium 143 Potassium 4.2 Chloride 107 Carbon Dioxide 22 BUN 18 H Creatinine 0.50 L Estimated GFR > 60.0 BUN/Creatinine Ratio 36.0 H Glucose 68 L Lactate Calcium 8.1 L Procalcitonin 0.09 05/28/18 05:56 WBC RBC Hgb Hct MCV MCH MCHC RDW Plt Count Neut % (Auto) Lymph % (Auto) [place] % (Auto) Eos % (Auto) Baso % (Auto) Neut # (Auto) Sodium Potassium Chloride Carbon Dioxide BUN Creatinine Estimated GFR BUN/Creatinine Ratio Glucose Lactate 0.6 L Calcium Procalcitonin Her lactate and procalcitonin levels are completely normal. White blood cell count is return to normal as well. Electrolytes are stable. Normal creatinine. Three-view abdominal x-ray series has been done today, and I have personally reviewed these films. No pulmonary infiltrates. No free air. She has gas and stool throughout the colon. Paucity of gas in the small bowel although the left lower quadrant loop remains visible but is not markedly dilated. No air-fluid level in the left lower quadrant. Assessment & Plan Plan: Assessment/Plan Narrative: 53-year-old female with recurrent partial small bowel obstruction which appears to be clinically improving since admission 2 days ago. However, I am unable to ascertain whether the small bowel loops are simply fluid filled on plain x-ray. Her NG tube output remains bilious which is mildly concerning for ongoing obstruction. I will therefore obtain a small-bowel follow-through with Gastrografin through the NG tube today. If small bowel follow-through shows contrast to the colon without significant delayed transit then I will clamp the NG tube and attempt to remove it tomorrow if she tolerates this. If the small- bowel follow-through today demonstrates ongoing obstruction in the nasogastric tube will need to be continued to low intermittent wall suction. Under those circumstances she will also require PICC line placement and reinstitution of TPN support. I discussed this with her today. Otherwise she may be out of bed as tolerated. No indication for antibiotics at this stage. Continue WATCH INSPECTOR FINAL MOVEMENT. Changed to maintenance IV fluids. No indication for surgical intervention at this time as well. I am hopeful that she will continue to improve over the next 2-3 days. All questions were answered to her satisfaction, and she voiced understanding. Orders were written. Quality VTE Deep Vein Thrombosis/Pulmonary Embolism Present on Admission: Yes
--- NOTE | 2018-05-28 11:20 | PC.NURSE ---
Pt has good pain control with SENIOR COMMISSARY AGENT, reports flatus+ BT+ ABD distention improved. No stooling yet NG to LIS with good output, plan for SB follow through at 11:30am.
[2018-05-28] MEDS: DEXTROSE 5%-0.45NS W/KCL 40MEQ 1,000 ML 100 MEQ IV ×2 (13:41→22:35)
--- NOTE | 2018-05-28 18:53 | PC.NURSE ---
Pt remains with dilaudid SPECIAL EFFECTS PERSON 0.4/01/17 and effective, denies pain. LS clear, denies SOB. BT + denies nausea, NG to Dr Cam GRANT clamped NG @ 1700. Pt up to [facility] for BM @ 5813. Indep in room and hallways. Remains NPO, ice chips and hard candy OK. call light in reach.
[2018-05-28] MEDS: LORazepam 2 MG/ML SYRINGE 1 MG IV (19:51)
[2018-05-28] MEDS: HYDROMORPHONE PCA 6 MG/30 ML PCA.VIAL 2.4 MG IV (22:00)
[2018-05-29] VITALS (9 sets, daily range): BP systolic 128–159; BP diastolic 76–120; PULSE 73–78; RESP 16–20; TEMP 36.5–36.7; O2SAT 96–98
[2018-05-29] MEDS: HYDROMORPHONE PCA 6 MG/30 ML PCA.VIAL IV ×3 (06:04→21:29)
[2018-05-29] MEDS: DEXTROSE 5%-0.45NS W/KCL 40MEQ 1,000 ML 100 MEQ IV (08:37)
[2018-05-29] MEDS: PANTOPRAZOLE 40 MG VIAL IV (08:38)
--- NOTE | 2018-05-29 11:21 | PC.NURSE ---
Addendum entered by Tania Aldrich R.N. 05/29/18 15:41: Doing well, so far, with NG out. Denies N/V or increase in abd pain. Ambulated hallway independently X2 big loops, steady on feet. Calls appropriately with needs/concerns. Original Note: Shift summary: NG tube dc'd by Dr Levy at approx 1055. Patient given fresh ice chips and water. Instructed to take it really easy with the water, just small sips for now (per Dr Levy). Encouraged ambulation. Patient wanting to sleep now. Able to make needs known. Call light in reach.
[2018-05-29] MEDS: KETOROLAC 30 MG/ML VIAL IV (15:53)
--- NOTE | 2018-05-29 18:00 | P.PN_ITS ---
Subjective Date Patient Seen: 05/29/18 Time Patient Seen: 17:58 Interval history: Patient tolerated NG tube clamped all night. No nausea or vomiting. She is passing flatus. No bowel movement as yet. She is becoming more hungry. Pain is significantly diminished, especially in the left lower quadrant. No subjective fever or chills. No chest pain or shortness of breath. Exam Vital Signs (past 8 hours): - 05/29/18 11:05 05/29/18 15:30 Temperature 98.1 F 98.0 F Pulse Rate 76 75 Respiratory Rate 16 20 Blood Pressure 157/82 H 159/120 H Pulse Oximetry 98 98 Oxygen Delivery Method Room Air Oxygen Flow Rate 0 Narrative Exam Narrative: Well-nourished well-developed obese female in no acute distress. Alert oriented x3. Resting comfortably in bed. Sclera nonicteric Nasogastric tube remains in place but has been clamped Regular rate and rhythm Abdomen soft and nondistended. She is minimally tender in the left lower quadrant at this time. Certainly no guarding or rebound. I appreciate no masses. Objective Labs Result Diagrams: 05/28/18 05:56 05/28/18 05:56 Labs: Again, small-bowel follow-through yesterday showed normal transit time without dilated bowel or transition point. No new study since. Assessment & Plan Plan: Assessment/Plan Narrative: 53-year-old female with resolving recurrent partial small bowel obstruction. Removed the nasogastric tube today. Continue relative bowel rest with sips of water and ice chips only. Restart her lisinopril with simple water due to mild hypertension. Out of bed and ambulate. May shower. Continue IV fluids and PUMP PRESS OPERATOR currently. If she does well advance to formal clear liquid diet later tonight or tomorrow morning. All the above discussed with the patient, and she voiced understanding. Quality VTE Deep Vein Thrombosis/Pulmonary Embolism Present on Admission: Yes
[2018-05-29] MEDS: LORazepam 2 MG/ML SYRINGE 1 MG IV (20:03)
[2018-05-29] MEDS: LISINOPRIL 10 MG TABLET PO (21:28)
[2018-05-30] VITALS (8 sets, daily range): BP systolic 123–151; BP diastolic 79–99; PULSE 74–83; RESP 16–24; TEMP 36.6–36.8; O2SAT 96–98
[2018-05-30] MEDS: DEXTROSE 5%-0.45NS W/KCL 40MEQ 1,000 ML 100 MEQ IV (02:24)
[2018-05-30] MEDS: HYDROMORPHONE PCA 6 MG/30 ML PCA.VIAL IV (05:47)
[2018-05-30] MEDS: PANTOPRAZOLE 40 MG VIAL IV (09:34)
[2018-05-30] MEDS: LISINOPRIL 10 MG TABLET PO (09:41)
--- NOTE | 2018-05-30 11:11 | PM.PNPO.1 ---
Subjective Date Patient Seen: 05/30/18 Time Patient Seen: 09:11 Interval history: Patient is a woman readmitted with obstructive symptoms. She feels well. Would like to go home. Tolerating clear liquids. Has no pain in her abdomen. Exam Vital Signs (past 8 hours): - 05/30/18 06:00 05/30/18 07:00 05/30/18 08:20 Temperature 98.1 F 97.8 F Pulse Rate 74 83 Respiratory Rate 17 24 Blood Pressure 123/79 144/98 H Pulse Oximetry 96 97 97 Oxygen Delivery Method Room Air Oxygen Flow Rate 0 Narrative Exam Narrative: Co Operative no apparent distress. Lungs are clear to auscultation no rales or rhonchi. Heart regular rate and rhythm no murmur gallop. Abdomen is protuberant but soft. It is not appear to be distended. The midline infraumbilical incision is well healed. Objective Labs Result Diagrams: 05/28/18 05:56 05/28/18 05:56 Assessment & Plan Post-op Postoperative Small-bowel obstruction seems to have resolved. Advancing slowly. May be able to go home late this afternoon or tomorrow morning. We will see how she is doing on full liquids. Postoperative status: doing well Postoperative plan: see orders and advance diet
[2018-05-30] MEDS: ENOXAPARIN 40 MG/0.4 ML SYRINGE SUBCUT (12:18)
[2018-05-30] MEDS: HYDROCODONE/ACET 5/325 TABLET 1 TAB PO (17:36)
--- NOTE | 2018-05-30 18:49 | PM.DS.1 ---
History of Present Illness Chief complaint: ABD PAIN THROWING UP Discharge Providers Date of admission: 05/27/18 00:37 Discharge provider: Kelechi Chris MD Discharge Date: 05/30/18 Summary Discharge Diagnosis: Abdominal pain recurrent secondary possibly to ileus versus obstructive process Morbid obesity with a BMI 44 chronic Anxiety disorder chronic Hypertension chronic Reflux disease chronic Hospital Course: Patient was admitted with abdominal distention and pain. She had recently been discharged from [facility]. A small-bowel follow-through was performed the day after admission and she was found to have normal transit, normal caliber bowel without any thickening. She was kept on clear liquids and advanced to full liquids. She was very anxious to go home at the time of discharge. She said she felt entirely normal and was having bowel function and passing flatus. She very much wanted to go home and given the normal small bowel follow-through to the lack of distention and her strong desire to be discharged I decided to send her home. She was advised to go slow in her diet. To add thing slowly. Follow-up with Dr. Levy for any further problems. Status at Discharge Cognitive/behavioral status at discharge: Normal pre admission status Functional status at discharge: independent ambulation Overall status at discharge: patient is progressing back to baseline Time Spent with Patient Less than 30 minutes Exam Vital Signs (past 8 hours): - 05/30/18 11:45 05/30/18 15:00 05/30/18 15:30 Temperature 98.3 F 98.1 F Pulse Rate 79 79 Respiratory Rate 16 19 Blood Pressure 137/86 151/96 H Pulse Oximetry 97 98 98 Oxygen Delivery Method Room Air Oxygen Flow Rate 0 Narrative Exam Narrative: Lungs are clear to auscultation. Heart regular rate and rhythm. Abdomen is nontender soft protuberant but not distended. Incision is intact. Objective Labs Result Diagrams: 05/28/18 05:56 05/28/18 05:56 Discharge Plan Discharge Plan Discharge Problem: Small bowel obstruction Patient Disposition: Home Discharge comment: You may go home this evening. Gradually add regular food here diet. Try to avoid narcotics as they may cause you to have an ileus which slows down her intestine. You may walk. If her symptoms recur please call our office. If you need to reach after hours call the office and hold until your connected with the extractor plant operator. Office [phone]. Discharge Med Rec/Prescriptions Prescriptions: Continue lisinopril 10 mg Tablet 10 mg PO DAILY RF: 0 sennosides [Senokot] 8.6 mg tablet 8.6 mg PO BEDTIME Qty: 10 RF: 1 docusate sodium [Colace] 100 mg capsule 100 mg PO BID Qty: 14 RF: 1 ibuprofen 800 mg tablet 800 mg PO QID PRN (Reason: pain) Qty: 60 RF: 0 pantoprazole [Protonix] 40 mg tablet,delayed release (DR/EC) 40 mg PO DAILY Qty: 30 RF: 0 lorazepam [Ativan] 1 mg tablet 1 mg PO BID-TID PRN (Reason: anxiety) Qty: 30 RF: 0 ondansetron HCl [Zofran] 4 mg tablet 4 mg PO Q6-8H PRN (Reason: nausea and vomiting) Qty: 14 RF: 0 Provider Discharge Instructions Diet: Diet as Tolerated Diet comment: Advance diet slowly adding regular food gradually Skin/Wound/Dressing Care Report to your healthcare provider any signs of infection, such as:: chills, fever and increased pain Discharge Data Attending Provider: Tate Levy Admit Date/Time: 05/27/18 00:37 Quality VTE Deep Vein Thrombosis/Pulmonary Embolism Present on Admission: Yes
--- NOTE | 2018-05-30 18:57 | P.DS_ITS ---
History of Present Illness Chief complaint: ABD PAIN THROWING UP Discharge Providers Date of admission: 05/27/18 00:37 Discharge provider: Kelechi Chris MD Discharge Date: 05/30/18 Summary Discharge Diagnosis: Abdominal pain recurrent secondary possibly to ileus versus obstructive process Morbid obesity with a BMI 44 chronic Anxiety disorder chronic Hypertension chronic Reflux disease chronic Hospital Course: Patient was admitted with abdominal distention and pain. She had recently been discharged from [facility]. A small-bowel follow- through was performed the day after admission and she was found to have normal transit, normal caliber bowel without any thickening. She was kept on clear liquids and advanced to full liquids. She was very anxious to go home at the time of discharge. She said she felt entirely normal and was having bowel function and passing flatus. She very much wanted to go home and given the normal small bowel follow-through to the lack of distention and her strong desire to be discharged I decided to send her home. She was advised to go slow in her diet. To add thing slowly. Follow-up with Dr. Levy for any further problems. Status at Discharge Cognitive/behavioral status at discharge: Normal pre admission status Functional status at discharge: independent ambulation Overall status at discharge: patient is progressing back to baseline Time Spent with Patient Less than 30 minutes Exam Vital Signs (past 8 hours): - 05/30/18 11:45 05/30/18 15:00 05/30/18 15:30 Temperature 98.3 F 98.1 F Pulse Rate 79 79 Respiratory Rate 16 19 Blood Pressure 137/86 151/96 H Pulse Oximetry 97 98 98 Oxygen Delivery Method Room Air Oxygen Flow Rate 0 Narrative Exam Narrative: Lungs are clear to auscultation. Heart regular rate and rhythm. Abdomen is nontender soft protuberant but not distended. Incision is intact. Objective Labs Result Diagrams: 05/28/18 05:56 05/28/18 05:56 Discharge Plan Discharge Plan Discharge Problem: Small bowel obstruction Patient Disposition: Home Discharge comment: You may go home this evening. Gradually add regular food here diet. Try to avoid narcotics as they may cause you to have an ileus which slows down her intestine. You may walk. If her symptoms recur please call our office. If you need to reach after hours call the office and hold until your connected with the case operator. Office [phone]. Discharge Med Rec/Prescriptions Prescriptions: Continue lisinopril 10 mg Tablet 10 mg PO DAILY RF: 0 sennosides [Senokot] 8.6 mg tablet 8.6 mg PO BEDTIME Qty: 10 RF: 1 docusate sodium [Colace] 100 mg capsule 100 mg PO BID Qty: 14 RF: 1 ibuprofen 800 mg tablet 800 mg PO QID PRN (Reason: pain) Qty: 60 RF: 0 pantoprazole [Protonix] 40 mg tablet,delayed release (DR/EC) 40 mg PO DAILY Qty: 30 RF: 0 lorazepam [Ativan] 1 mg tablet 1 mg PO BID-TID PRN (Reason: anxiety) Qty: 30 RF: 0 ondansetron HCl [Zofran] 4 mg tablet 4 mg PO Q6-8H PRN (Reason: nausea and vomiting) Qty: 14 RF: 0 Provider Discharge Instructions Diet: Diet as Tolerated Diet comment: Advance diet slowly adding regular food gradually Skin/Wound/Dressing Care Report to your healthcare provider any signs of infection, such as:: chills, fever and increased pain Discharge Data Attending Provider: Tate Levy Admit Date/Time: 05/27/18 00:37 Quality VTE Deep Vein Thrombosis/Pulmonary Embolism Present on Admission: Yes
--- NOTE | 2018-05-30 19:29 | PC.NURSE ---
Evening Shift/Discharge note- Patient discharged home. IV removed and bandage applied. reviewed discharged paperwork and instructions with patient and signed. patient left with all personal belonging via wheelchair to private car. spouse at patients side.
== END 2018-05-30 19:28 | disposition home or self-care (01) | DRG 247 ==
LOC: ED 22:27 → AC 05-27 00:38
PROVIDERS: Admitting Provider Surgery; Emergency Provider Emergency Medicine; Visit Provider Surgery
DX: K56.50 Intestinal adhesions [bands], unspecified as to partial versus complete obstruction (principal); E66.01 Morbid (severe) obesity due to excess calories; Z68.41 Body mass index [BMI] 40.0-44.9, adult; F41.9 Anxiety disorder, unspecified; I10 Essential (primary) hypertension; Z87.891 Personal history of nicotine dependence; K21.9 Gastro-esophageal reflux disease without esophagitis
CPT/HCPCS: 36415; 36591; 71045; 74022; 74177; 74250; 80048; 80053; 81003; 81015; 83605; 83690; 84145; 85025; 96361; 96374; 96375; 96376; 99283; 99285; C9113; J1170; J1650; J1885; J2060; J2250; J2405; Q9967

== ENCOUNTER 2018-06-08 17:06 | Inpatient (IN) | payer OTHER, MEDICAID, SELFPAY ==
[2018-05-27 02:19] VITALS: BMI 44.2
[2018-06-08] VITALS (7 sets, daily range): BP systolic 124–178; BP diastolic 70–101; PULSE 79–93; RESP 9–25; TEMP 36.6–37.3; O2SAT 92–99; BMI 43.0
--- NOTE | 2018-06-08 17:22 | ED.ABDPAIN ---
HPI - Abdominal Pain <SHAMA Sandhu - Last Filed: 06/08/18 20:43> General Chief Complaint: Abdominal Pain Stated Complaint: abd pain Time Seen by Provider: 06/08/18 17:22 Source: patient Mode of arrival: ambulatory Limitations: no limitations History of Present Illness HPI narrative: 53-year-old female with history of small-bowel obstructions as a former smoker here for complaint of abdominal pain midline upper and lower pain that started over the past couple of days. She also reports having some nausea. No vomiting. Last bowel movement was yesterday and was diarrhea. She states that she does not feel like she is passing gas. She denies any stressors relievers of her pain. She was recently discharged from the hospital for small bowel obstruction on the 30 of May. She has had a multiple imaging and recent admissions for same type symptoms. She was feeling better up until day before yesterday. She denies any fevers or chills. No urinary symptoms. Denies any trauma to the abdomen. MD complaint: abdominal pain Related Data Home Medications Medication Instructions Recorded Confirmed lisinopril 10 mg PO DAILY 04/21/18 06/08/18 Previous Rx's Medication Instructions Recorded docusate sodium [Colace] 100 mg PO BID #14 cap 05/10/18 ibuprofen 800 mg PO QID PRN #60 tab 05/10/18 ondansetron HCl [Zofran] 4 mg PO Q6-8H PRN #14 tab 05/10/18 pantoprazole [Protonix] 40 mg PO DAILY #30 tab 05/10/18 sennosides [Senokot] 8.6 mg PO BEDTIME #10 tab 05/10/18 Allergies Allergy/AdvReac Type Severity Reaction Status Date / Time Penicillins Allergy Intermediate Hives Verified 06/08/18 17:15 ranitidine [From Zantac] Allergy Intermediate Hives Verified 06/08/18 17:15 Review of Systems <SHAMA Sandhu - Last Filed: 06/08/18 20:43> Constitutional Denies chills, Denies fever(s), Denies lethargy and Denies weakness Eyes Denies change in vision, Denies eye discharge, Denies irritation and Denies loss of vision ENT Ears, Nose, Mouth, and Throat: Denies change in voice, Denies neck pain and Denies sore throat Cardiovascular Denies chest pain, Denies irregular heart rhythm, Denies lightheadedness, Denies palpitations, Denies dyspnea, Denies dyspnea on exertion and Denies orthopnea Respiratory Denies cough, Denies dyspnea, Denies dyspnea on exertion and Denies wheezing Gastrointestinal Gastrointestinal: Reports abdominal pain, Denies change in bowel habits, Denies diarrhea, Reports nausea and Denies vomiting Genitourinary Denies hematuria, Denies flank pain, Denies urinary incontinence and Denies urinary urgency Musculoskeletal Denies neck pain Integumentary/Breasts Denies pruritus, Denies erythema, Denies rash and Denies wounds Neurologic Denies confusion, Denies loss of vision and Denies weakness Psychiatric Denies anxiety, Denies confusion, Denies depression, Denies homicidal ideation and Denies suicidal ideation Endocrine Denies palpitations Hematologic/Lymphatic Denies easy bruising Allergic/Immunologic Denies wheezing Exam <SHAMA Sandhu - Last Filed: 06/08/18 20:43> Initial Vital Signs Initial Vital Signs: Vital Signs Temperature 97.9 F 06/08/18 17:15 Pulse Rate 79 06/08/18 17:15 Respiratory Rate 25 H 06/08/18 17:15 Blood Pressure 178/101 H 06/08/18 17:15 Pulse Oximetry 99 06/08/18 17:15 Const General: cooperative and well developed Nutritional Appearance: well nourished Orientation: alert, awake, oriented x3 and not confused [facility] Mouth: oral mucosae normal and moist mucous membranes Eyes Conjunctivae: conjunctivae normal Sclera: sclerae normal Pupils: PERRL EOM: EOM intact bilaterally Resp Effort & Inspection: normal respiratory effort, able to speak in complete sentences, no respiratory distress and no use of accessory muscles Auscultation: clear to auscultation bilaterally, no rales, no rhonchi and no wheezes Cardio Rate: regular rate Rhythm: regular rhythm Heart Sounds: no click, no gallops, no murmurs and no rubs GI Inspection: non-distended Palpation: soft, no hepatosplenomegaly, No guarding, No pulsatile mass and tender Auscultation: normal bowel sounds Skin General: no rashes or lesions noted, No jaundice and No petechiae Neuro General: alert, oriented x3, gait normal and no focal motor deficits Speech: speech normal <Jeana Kumar DO - Last Filed: 06/09/18 04:14> Initial Vital Signs Initial Vital Signs: Vital Signs Temperature 97.9 F 06/08/18 17:15 Pulse Rate 79 06/08/18 17:15 Respiratory Rate 25 H 06/08/18 17:15 Blood Pressure 178/101 H 06/08/18 17:15 Pulse Oximetry 99 06/08/18 17:15 Course <SHAMA Sandhu - Last Filed: 06/08/18 20:43> Orders Ordered: ED Orders 06/08/18 20:35 Education, smoking cessation ONGOING 06/09/18 XR abdomen 3V Routine 06/09/18 05:00 Basic Metabolic Panel Routine Complete Blood Count AUTO DIFF Routine Lactate (Lactic Acid) Routine Acetaminophen (Tylenol) 650 mg PO Q6HR PRN PRN Reason: As Needed for Fever/Mild Pain Enoxaparin Sodium (Lovenox) 40 mg SUBCUT DAILY [facility] HYDROMORPHONE MANAGER REGISTRATION (Dilaudid 6 Mg/30 Ml) 6 mg in 30 mls @ 0 mls/hr IV Q8HR [facility] Last Admin: 06/08/18 23:01 Dose: 0.6 mls/hr Sodium Chloride (Normal Saline 0.9%) 1,000 mls @ 100 mls/hr IV CONT MUKUL Last Admin: 06/08/18 21:10 Dose: 100 mls/hr Naloxone HCl (Narcan) 0.2 mg IV Q2MIN PRN; Protocol PRN Reason: Opiate Reversal Ondansetron HCl (Zofran) 4 mg IV Q6HR [facility] Last Admin: 06/08/18 23:01 Dose: 4 mg Pantoprazole Sodium (Protonix) 40 mg IV DAILY [facility] Discontinued Medications Hydromorphone HCl (Dilaudid) 1 mg IV NOW ONE Stop: 06/08/18 17:55 Last Admin: 06/08/18 18:04 Dose: 1 mg Hydromorphone HCl (Dilaudid) 0.5 mg IV NOW ONE Stop: 06/08/18 19:25 Last Admin: 06/08/18 19:37 Dose: 0.5 mg Sodium Chloride (Normal Saline 0.9%) 1,000 mls @ 1,000 mls/hr IV BOLUS ONE Stop: 06/08/18 18:35 Last Infusion: 06/08/18 19:14 Dose: 0 mls/hr Admin: 06/08/18 17:37 Dose: 1,000 mls/hr Sodium Chloride (Normal Saline 0.9%) 1,000 mls @ 150 mls/hr IV CONT MUKUL Last Infusion: 06/08/18 20:40 Dose: 150 mls/hr Infusion: 06/08/18 20:30 Dose: 0 mls/hr Admin: 06/08/18 19:16 Dose: 150 mls/hr Sodium Chloride (Normal Saline 0.9%) 1,000 mls @ 100 mls/hr IV CONT [facility] Last Admin: 06/09/18 00:53 Dose: Not Given Ondansetron HCl (Zofran) 4 mg IV NOW ONE Stop: 06/08/18 17:37 Last Admin: 06/08/18 17:37 Dose: 4 mg Ondansetron HCl (Zofran) 4 mg IV NOW ONE Stop: 06/08/18 18:13 Last Admin: 06/08/18 18:13 Dose: 4 mg Ondansetron HCl (Zofran) 4 mg IV NOW ONE Stop: 06/08/18 23:46 Last Admin: 06/09/18 00:03 Dose: 4 mg Vital Signs - 8 hr 06/08/18 20:59 06/08/18 23:40 06/08/18 23:53 Temperature 99.1 F 98.6 F Pulse Rate 84 80 Respiratory Rate 16 15 Blood Pressure 142/77 H 124/70 Pulse Oximetry 95 95 94 <Jeana Kumar, - Last Filed: 06/09/18 04:14> Orders Ordered: ED Orders 06/08/18 20:35 Education, smoking cessation ONGOING 06/09/18 XR abdomen 3V Routine 06/09/18 05:00 Basic Metabolic Panel Routine Complete Blood Count AUTO DIFF Routine Lactate (Lactic Acid) Routine Acetaminophen (Tylenol) 650 mg PO Q6HR PRN PRN Reason: As Needed for Fever/Mild Pain Enoxaparin Sodium (Lovenox) 40 mg SUBCUT DAILY [facility] HYDROMORPHONE MANAGER REGISTRATION (Dilaudid 6 Mg/30 Ml) 6 mg in 30 mls @ 0 mls/hr IV Q8HR [facility] Last Admin: 06/08/18 23:01 Dose: 0.6 mls/hr Sodium Chloride (Normal Saline 0.9%) 1,000 mls @ 100 mls/hr IV CONT [facility] Last Admin: 06/08/18 21:10 Dose: 100 mls/hr Naloxone HCl (Narcan) 0.2 mg IV Q2MIN PRN; Protocol PRN Reason: Opiate Reversal Ondansetron HCl (Zofran) 4 mg IV Q6HR [facility] Last Admin: 06/08/18 23:01 Dose: 4 mg Pantoprazole Sodium (Protonix) 40 mg IV DAILY [facility] Discontinued Medications Hydromorphone HCl (Dilaudid) 1 mg IV NOW ONE Stop: 06/08/18 17:55 Last Admin: 06/08/18 18:04 Dose: 1 mg Hydromorphone HCl (Dilaudid) 0.5 mg IV NOW ONE Stop: 06/08/18 19:25 Last Admin: 06/08/18 19:37 Dose: 0.5 mg Sodium Chloride (Normal Saline 0.9%) 1,000 mls @ 1,000 mls/hr IV BOLUS ONE Stop: 06/08/18 18:35 Last Infusion: 06/08/18 19:14 Dose: 0 mls/hr Admin: 06/08/18 17:37 Dose: 1,000 mls/hr Sodium Chloride (Normal Saline 0.9%) 1,000 mls @ 150 mls/hr IV CONT [facility] Last Infusion: 06/08/18 20:40 Dose: 150 mls/hr Infusion: 06/08/18 20:30 Dose: 0 mls/hr Admin: 06/08/18 19:16 Dose: 150 mls/hr Sodium Chloride (Normal Saline 0.9%) 1,000 mls @ 100 mls/hr IV CONT [facility] Last Admin: 06/09/18 00:53 Dose: Not Given Ondansetron HCl (Zofran) 4 mg IV NOW ONE Stop: 06/08/18 17:37 Last Admin: 06/08/18 17:37 Dose: 4 mg Ondansetron HCl (Zofran) 4 mg IV NOW ONE Stop: 06/08/18 18:13 Last Admin: 06/08/18 18:13 Dose: 4 mg Ondansetron HCl (Zofran) 4 mg IV NOW ONE Stop: 06/08/18 23:46 Last Admin: 06/09/18 00:03 Dose: 4 mg Vital Signs - 8 hr 06/08/18 20:59 06/08/18 23:40 06/08/18 23:53 Temperature 99.1 F 98.6 F Pulse Rate 84 80 Respiratory Rate 16 15 Blood Pressure 142/77 H 124/70 Pulse Oximetry 95 95 94 MDM - Abdominal Pain <Juan Manuel KurtzSHAMA - Last Filed: 06/08/18 20:43> Lab Data Result diagrams: 06/08/18 17:23 06/08/18 17:23 Lab Results 06/08/18 06/08/18 Range/Units 17:23 17:23 WBC 8.9 (4.5-11.0) X10^3/uL RBC 4.47 (4.0-5.2) X10^6/uL Hgb 13.1 (12.0-16.0) g/dL Hct 38.2 (36-46) % MCV 85.4 (80-100) fL MCH 29.4 (26-34) PG MCHC 34.4 (30-36) % RDW 14.4 (11.6-14.8) % Plt Count 586 H (150-400) X10^3/uL Neut % (Auto) 65.6 (50-75) % Lymph % (Auto) 22.9 L (25-40) % [place] % (Auto) 10.5 (3-14) % Eos % (Auto) 0.5 L (2-4) % Baso % (Auto) 0.5 (0-2) % Neut # (Auto) 5800 (9116-0153) /uL Sodium 137 (137-145) mmol/L Potassium 3.1 L (3.4-5.1) mmol/L Chloride 100 (98-107) mmol/L Carbon Dioxide 25 (22-32) mmol/L BUN 17 (7-17) mg/dL Creatinine 0.60 (0.52-1.04) mg/dL Estimated GFR > 60.0 (>60) mL/min BUN/Creatinine Ratio 28.3 H (6-22) Glucose 83 (70-100) mg/dL Calcium 8.6 (8.4-10.2) mg/dL Total Bilirubin 0.6 (0.2-1.3) mg/dL AST 34 (14-36) IU/L ALT 31 (9-52) IU/L Alkaline Phosphatase 91 (38-126) U/L Total Protein 6.5 (6.3-8.2) g/dL Albumin 3.1 L (3.5-5.0) g/dL Globulin 3.4 (1.7-4.1) g/dL Albumin/Globulin Ratio 0.9 L (1.0-2.8) Lipase 16 L (23-300) U/L Imaging Data Abdominal x-ray: Radiologist's impression: View Report History Print [address] [address] XRay Report Signed Patient: Carol Reyes MR#: [id number] : 1965 Acct:[id number] Age/Sex: 53 / F Date of Service: 06/08/18 Loc: ED Accession Number: [id number] Procedure: XR abdomen min 2V Ordering Provider: Juan Manuel Kurtz PROCEDURE: XR ABDOMEN MIN 2V INDICATIONS: Abdominal pain TECHNIQUE: 2 views of the abdomen were acquired. COMPARISON: [facility], CR, XR ABDOMEN MIN 2V, 05/06/2018, 6:31. [facility], CR, XR ABDOMEN 3V, 05/04/2018, 13:46. [facility], CR, XR ABDOMEN MIN 2V, 04/28/2018, 14:30. FINDINGS: Surgical changes and devices: None. Bowel: No pneumoperitoneum identified. Multiple loops of dilated small bowel with numerous air-fluid levels are seen. Bones: Multilevel degenerative changes of the lumbar spine and mild degenerative changes of the bilateral hip joints noted. IMPRESSION: Bowel gas pattern consistent with small bowel obstruction (less likely ileus). Dictated by: Yoseph Best M.D. on 06/08/2018 at 18:15 Approved by: Yoseph Best M.D. on 06/08/2018 at 18:17 MDM Narrative Medical decision making narrative: CBC Chem panel and lipase were obtained and with exception of mild hypo kalemia for unremarkable. X-ray of the abdomen shows finding consistent with small-bowel obstruction. Discussed case with surgery Dr. Levy who accepted patient for admission. Patient states that she would not like to have a NG tube at this visit. She has had some nausea however she has not been vomiting so issue was not pressed. She is maintained NPO she was given fluids anti nausea medication and pain medication in the emergency room. Patient did not provide a urine sample prior to admission. Patient admitted to inpatient service <Jeana José, - Last Filed: 06/09/18 04:14> Lab Data Lab Results 06/08/18 06/08/18 Range/Units 17:23 17:23 WBC 8.9 (4.5-11.0) X10^3/uL RBC 4.47 (4.0-5.2) X10^6/uL Hgb 13.1 (12.0-16.0) g/dL Hct 38.2 (36-46) % MCV 85.4 (80-100) fL MCH 29.4 (26-34) PG MCHC 34.4 (30-36) % RDW 14.4 (11.6-14.8) % Plt Count 586 H (150-400) X10^3/uL Neut % (Auto) 65.6 (50-75) % Lymph % (Auto) 22.9 L (25-40) % [place] % (Auto) 10.5 (3-14) % Eos % (Auto) 0.5 L (2-4) % Baso % (Auto) 0.5 (0-2) % Neut # (Auto) 5800 (3960-0684) /uL Sodium 137 (137-145) mmol/L Potassium 3.1 L (3.4-5.1) mmol/L Chloride 100 (98-107) mmol/L Carbon Dioxide 25 (22-32) mmol/L BUN 17 (7-17) mg/dL Creatinine 0.60 (0.52-1.04) mg/dL Estimated GFR > 60.0 (>60) mL/min BUN/Creatinine Ratio 28.3 H (6-22) Glucose 83 (70-100) mg/dL Calcium 8.6 (8.4-10.2) mg/dL Total Bilirubin 0.6 (0.2-1.3) mg/dL AST 34 (14-36) IU/L ALT 31 (9-52) IU/L Alkaline Phosphatase 91 (38-126) U/L Total Protein 6.5 (6.3-8.2) g/dL Albumin 3.1 L (3.5-5.0) g/dL Globulin 3.4 (1.7-4.1) g/dL Albumin/Globulin Ratio 0.9 L (1.0-2.8) Lipase 16 L (23-300) U/L Discharge Plan Departure Patient Disposition: Admitted As Inpatient Clinical Impression: Small bowel obstruction Discharge Date/Time: 06/08/18 20:30 Interventions: ED Discharge Assessment Last Done: 06/08/18 20:27 Admit Date/Time: 06/08/18 20:16 Admit Provider: Tate Levy <Jeana Kumar DO - Last Filed: 06/09/18 04:14> Cosign ED Attending Tiffature Attestation: I was immediately available in the department for consultation. Documentation has been reviewed. I agree with assessment and plan.
[2018-06-08] MEDS: SODIUM CHLORIDE 0.9% 1,000 ML 1000 ML IV (17:37)
[2018-06-08] MEDS: ONDANSETRON 4 MG/2 ML INJ IV ×3 (17:37→23:01)
--- NOTE | 2018-06-08 17:53 | DI.RAD.S_ITS ---
PROCEDURE: XR ABDOMEN MIN 2V INDICATIONS: Abdominal pain TECHNIQUE: 2 views of the abdomen were acquired. COMPARISON: [facility], CR, XR ABDOMEN MIN 2V, 05/06/2018, 6:31. [facility], CR, XR ABDOMEN 3V, 05/04/2018, 13:46. [facility], CR, XR ABDOMEN MIN 2V, 04/28/2018, 14:30. FINDINGS: Surgical changes and devices: None. Bowel: No pneumoperitoneum identified. Multiple loops of dilated small bowel with numerous air-fluid levels are seen. Bones: Multilevel degenerative changes of the lumbar spine and mild degenerative changes of the bilateral hip joints noted. IMPRESSION: Bowel gas pattern consistent with small bowel obstruction (less likely ileus). Dictated by: Yoseph Best M.D. on 06/08/2018 at 18:15 Approved by: Yoseph Best M.D. on 06/08/2018 at 18:17
[2018-06-08] MEDS: HYDROMORPHONE 1 MG INJ IV (18:04)
[2018-06-08 18:16] LABS: Add Manual Diff / Slide Review NO; Basophils Percent Auto 0.5 % (0-2); Eosinophils Percent Auto 0.5 % (2-4); Hematocrit 38.2 % (36-46); Hemoglobin 13.1 g/dL (12.0-16.0); Lymphocytes Percent Auto 22.9 % (25-40); Mean Corpuscular HGB Conc 34.4 % (30-36); Mean Corpuscular Hemoglobin 29.4 PG (26-34); Mean Corpuscular Volume 85.4 fL (80-100); Monocytes Percent Auto 10.5 % (3-14); Neutrophils Absolute Auto 5800 /uL (1500-7000); Neutrophils Percent Auto 65.6 % (50-75); Platelet Count 586 X10^3/uL (150-400); Red Blood Cell Count 4.47 X10^6/uL (4.0-5.2); Red Cell Distribution Width 14.4 % (11.6-14.8); White Blood Cell Count 8.9 X10^3/uL (4.5-11.0)
[2018-06-08 18:40] LABS: Alanine Aminotransferase 31 IU/L (9-52); Albumin 3.1 g/dL (3.5-5.0); Albumin Globulin Ratio 0.9 (1.0-2.8); Alkaline Phosphatase 91 U/L (38-126); Aspartate Aminotransferase 34 IU/L (14-36); BUN Creatinine Ratio 28.3 (6-22); Bilirubin Total 0.6 mg/dL (0.2-1.3); Blood Urea Nitrogen 17 mg/dL (7-17); Calcium 8.6 mg/dL (8.4-10.2); Carbon Dioxide 25 mmol/L (22-32); Chloride 100 mmol/L (98-107); Estimated Glomerular Filt Rate > 60.0 mL/min (>60); Globulin 3.4 g/dL (1.7-4.1); Glucose 83 mg/dL (70-100); HEMOLYSIS < 15 (0-50); Lipase 16 U/L (23-300); Potassium 3.1 mmol/L (3.4-5.1); Sodium 137 mmol/L (137-145); Total Protein 6.5 g/dL (6.3-8.2)
--- NOTE | 2018-06-08 18:52 | PC.NURSE ---
Pt reports feeling much better at this time for pain and nausea.
[2018-06-08] MEDS: SODIUM CHLORIDE 0.9% 1,000 ML 150 ML IV (19:16)
[2018-06-08] MEDS: HYDROMORPHONE 1 MG INJ 0.5 MG IV (19:37)
--- NOTE | 2018-06-08 20:13 | ED_ITS ---
HPI - Abdominal Pain <SHAMA Sandhu - Last Filed: 06/08/18 20:43> General Chief Complaint: Abdominal Pain Stated Complaint: abd pain Time Seen by Provider: 06/08/18 17:22 Source: patient Mode of arrival: ambulatory Limitations: no limitations History of Present Illness HPI narrative: 53-year-old female with history of small-bowel obstructions as a former smoker here for complaint of abdominal pain midline upper and lower pain that started over the past couple of days. She also reports having some nausea. No vomiting. Last bowel movement was yesterday and was diarrhea. She states that she does not feel like she is passing gas. She denies any stressors relievers of her pain. She was recently discharged from the hospital for small bowel obstruction on the 30 of May. She has had a multiple imaging and recent admissions for same type symptoms. She was feeling better up until day before yesterday. She denies any fevers or chills. No urinary symptoms. Denies any trauma to the abdomen. MD complaint: abdominal pain Related Data Home Medications Medication Instructions Recorded Confirmed lisinopril 10 mg PO DAILY 04/21/18 06/08/18 Previous Rx's Medication Instructions Recorded docusate sodium [Colace] 100 mg PO BID #14 cap 05/10/18 ibuprofen 800 mg PO QID PRN #60 tab 05/10/18 ondansetron HCl [Zofran] 4 mg PO Q6-8H PRN #14 tab 05/10/18 pantoprazole [Protonix] 40 mg PO DAILY #30 tab 05/10/18 sennosides [Senokot] 8.6 mg PO BEDTIME #10 tab 05/10/18 Allergies Allergy/AdvReac Type Severity Reaction Status Date / Time Penicillins Allergy Intermediate Hives Verified 06/08/18 17:15 ranitidine [From Zantac] Allergy Intermediate Hives Verified 06/08/18 17:15 Review of Systems <SHAMA Sandhu - Last Filed: 06/08/18 20:43> Constitutional Denies chills, Denies fever(s), Denies lethargy and Denies weakness Eyes Denies change in vision, Denies eye discharge, Denies irritation and Denies loss of vision ENT Ears, Nose, Mouth, and Throat: Denies change in voice, Denies neck pain and Denies sore throat Cardiovascular Denies chest pain, Denies irregular heart rhythm, Denies lightheadedness, Denies palpitations, Denies dyspnea, Denies dyspnea on exertion and Denies orthopnea Respiratory Denies cough, Denies dyspnea, Denies dyspnea on exertion and Denies wheezing Gastrointestinal Gastrointestinal: Reports abdominal pain, Denies change in bowel habits, Denies diarrhea, Reports nausea and Denies vomiting Genitourinary Denies hematuria, Denies flank pain, Denies urinary incontinence and Denies urinary urgency Musculoskeletal Denies neck pain Integumentary/Breasts Denies pruritus, Denies erythema, Denies rash and Denies wounds Neurologic Denies confusion, Denies loss of vision and Denies weakness Psychiatric Denies anxiety, Denies confusion, Denies depression, Denies homicidal ideation and Denies suicidal ideation Endocrine Denies palpitations Hematologic/Lymphatic Denies easy bruising Allergic/Immunologic Denies wheezing Exam <SHAMA Sandhu - Last Filed: 06/08/18 20:43> Initial Vital Signs Initial Vital Signs: Vital Signs Temperature 97.9 F 06/08/18 17:15 Pulse Rate 79 06/08/18 17:15 Respiratory Rate 25 H 06/08/18 17:15 Blood Pressure 178/101 H 06/08/18 17:15 Pulse Oximetry 99 06/08/18 17:15 Const General: cooperative and well developed Nutritional Appearance: well nourished Orientation: alert, awake, oriented x3 and not confused [facility] Mouth: oral mucosae normal and moist mucous membranes Eyes Conjunctivae: conjunctivae normal Sclera: sclerae normal Pupils: PERRL EOM: EOM intact bilaterally Resp Effort & Inspection: normal respiratory effort, able to speak in complete sentences, no respiratory distress and no use of accessory muscles Auscultation: clear to auscultation bilaterally, no rales, no rhonchi and no wheezes Cardio Rate: regular rate Rhythm: regular rhythm Heart Sounds: no click, no gallops, no murmurs and no rubs GI Inspection: non-distended Palpation: soft, no hepatosplenomegaly, No guarding, No pulsatile mass and tender Auscultation: normal bowel sounds Skin General: no rashes or lesions noted, No jaundice and No petechiae Neuro General: alert, oriented x3, gait normal and no focal motor deficits Speech: speech normal <Jeana Kumar DO - Last Filed: 06/09/18 04:14> Initial Vital Signs Initial Vital Signs: Vital Signs Temperature 97.9 F 06/08/18 17:15 Pulse Rate 79 06/08/18 17:15 Respiratory Rate 25 H 06/08/18 17:15 Blood Pressure 178/101 H 06/08/18 17:15 Pulse Oximetry 99 06/08/18 17:15 Course <SHAMA Sandhu - Last Filed: 06/08/18 20:43> Orders Ordered: ED Orders 06/08/18 20:35 Education, smoking cessation ONGOING 06/09/18 XR abdomen 3V Routine 06/09/18 05:00 Basic Metabolic Panel Routine Complete Blood Count AUTO DIFF Routine Lactate (Lactic Acid) Routine Acetaminophen (Tylenol) 650 mg PO Q6HR PRN PRN Reason: As Needed for Fever/Mild Pain Enoxaparin Sodium (Lovenox) 40 mg SUBCUT DAILY [facility] HYDROMOR[employer]ETING [employer] (Dilaudid 6 Mg/30 Ml) 6 mg in 30 mls @ 0 mls/hr IV Q8HR [facility] Last Admin: 06/08/18 23:01 Dose: 0.6 mls/hr Sodium Chloride (Normal Saline 0.9%) 1,000 mls @ 100 mls/hr IV CONT MUKUL Last Admin: 06/08/18 21:10 Dose: 100 mls/hr Naloxone HCl (Narcan) 0.2 mg IV Q2MIN PRN; Protocol PRN Reason: Opiate Reversal Ondansetron HCl (Zofran) 4 mg IV Q6HR [facility] Last Admin: 06/08/18 23:01 Dose: 4 mg Pantoprazole Sodium (Protonix) 40 mg IV DAILY [facility] Discontinued Medications Hydromorphone HCl (Dilaudid) 1 mg IV NOW ONE Stop: 06/08/18 17:55 Last Admin: 06/08/18 18:04 Dose: 1 mg Hydromorphone HCl (Dilaudid) 0.5 mg IV NOW ONE Stop: 06/08/18 19:25 Last Admin: 06/08/18 19:37 Dose: 0.5 mg Sodium Chloride (Normal Saline 0.9%) 1,000 mls @ 1,000 mls/hr IV BOLUS ONE Stop: 06/08/18 18:35 Last Infusion: 06/08/18 19:14 Dose: 0 mls/hr Admin: 06/08/18 17:37 Dose: 1,000 mls/hr Sodium Chloride (Normal Saline 0.9%) 1,000 mls @ 150 mls/hr IV CONT MUKUL Last Infusion: 06/08/18 20:40 Dose: 150 mls/hr Infusion: 06/08/18 20:30 Dose: 0 mls/hr Admin: 06/08/18 19:16 Dose: 150 mls/hr Sodium Chloride (Normal Saline 0.9%) 1,000 mls @ 100 mls/hr IV CONT [facility] Last Admin: 06/09/18 00:53 Dose: Not Given Ondansetron HCl (Zofran) 4 mg IV NOW ONE Stop: 06/08/18 17:37 Last Admin: 06/08/18 17:37 Dose: 4 mg Ondansetron HCl (Zofran) 4 mg IV NOW ONE Stop: 06/08/18 18:13 Last Admin: 06/08/18 18:13 Dose: 4 mg Ondansetron HCl (Zofran) 4 mg IV NOW ONE Stop: 06/08/18 23:46 Last Admin: 06/09/18 00:03 Dose: 4 mg Vital Signs - 8 hr 06/08/18 20:59 06/08/18 23:40 06/08/18 23:53 Temperature 99.1 F 98.6 F Pulse Rate 84 80 Respiratory Rate 16 15 Blood Pressure 142/77 H 124/70 Pulse Oximetry 95 95 94 <Jeana Kumar, - Last Filed: 06/09/18 04:14> Orders Ordered: ED Orders 06/08/18 20:35 Education, smoking cessation ONGOING 06/09/18 XR abdomen 3V Routine 06/09/18 05:00 Basic Metabolic Panel Routine Complete Blood Count AUTO DIFF Routine Lactate (Lactic Acid) Routine Acetaminophen (Tylenol) 650 mg PO Q6HR PRN PRN Reason: As Needed for Fever/Mild Pain Enoxaparin Sodium (Lovenox) 40 mg SUBCUT DAILY [facility] [employer] (Dilaudid 6 Mg/30 Ml) 6 mg in 30 mls @ 0 mls/hr IV Q8HR [facility] Last Admin: 06/08/18 23:01 Dose: 0.6 mls/hr Sodium Chloride (Normal Saline 0.9%) 1,000 mls @ 100 mls/hr IV CONT [facility] Last Admin: 06/08/18 21:10 Dose: 100 mls/hr Naloxone HCl (Narcan) 0.2 mg IV Q2MIN PRN; Protocol PRN Reason: Opiate Reversal Ondansetron HCl (Zofran) 4 mg IV Q6HR [facility] Last Admin: 06/08/18 23:01 Dose: 4 mg Pantoprazole Sodium (Protonix) 40 mg IV DAILY [facility] Discontinued Medications Hydromorphone HCl (Dilaudid) 1 mg IV NOW ONE Stop: 06/08/18 17:55 Last Admin: 06/08/18 18:04 Dose: 1 mg Hydromorphone HCl (Dilaudid) 0.5 mg IV NOW ONE Stop: 06/08/18 19:25 Last Admin: 06/08/18 19:37 Dose: 0.5 mg Sodium Chloride (Normal Saline 0.9%) 1,000 mls @ 1,000 mls/hr IV BOLUS ONE Stop: 06/08/18 18:35 Last Infusion: 06/08/18 19:14 Dose: 0 mls/hr Admin: 06/08/18 17:37 Dose: 1,000 mls/hr Sodium Chloride (Normal Saline 0.9%) 1,000 mls @ 150 mls/hr IV CONT [facility] Last Infusion: 06/08/18 20:40 Dose: 150 mls/hr Infusion: 06/08/18 20:30 Dose: 0 mls/hr Admin: 06/08/18 19:16 Dose: 150 mls/hr Sodium Chloride (Normal Saline 0.9%) 1,000 mls @ 100 mls/hr IV CONT [facility] Last Admin: 06/09/18 00:53 Dose: Not Given Ondansetron HCl (Zofran) 4 mg IV NOW ONE Stop: 06/08/18 17:37 Last Admin: 06/08/18 17:37 Dose: 4 mg Ondansetron HCl (Zofran) 4 mg IV NOW ONE Stop: 06/08/18 18:13 Last Admin: 06/08/18 18:13 Dose: 4 mg Ondansetron HCl (Zofran) 4 mg IV NOW ONE Stop: 06/08/18 23:46 Last Admin: 06/09/18 00:03 Dose: 4 mg Vital Signs - 8 hr 06/08/18 20:59 06/08/18 23:40 06/08/18 23:53 Temperature 99.1 F 98.6 F Pulse Rate 84 80 Respiratory Rate 16 15 Blood Pressure 142/77 H 124/70 Pulse Oximetry 95 95 94 MDM - Abdominal Pain <Juan Manuel KurtzSHAMA - Last Filed: 06/08/18 20:43> Lab Data Result diagrams: 06/08/18 17:23 06/08/18 17:23 Lab Results 06/08/18 06/08/18 Range/Units 17:23 17:23 WBC 8.9 (4.5-11.0) X10^3/uL RBC 4.47 (4.0-5.2) X10^6/uL Hgb 13.1 (12.0-16.0) g/dL Hct 38.2 (36-46) % MCV 85.4 (80-100) fL MCH 29.4 (26-34) PG MCHC 34.4 (30-36) % RDW 14.4 (11.6-14.8) % Plt Count 586 H (150-400) X10^3/uL Neut % (Auto) 65.6 (50-75) % Lymph % (Auto) 22.9 L (25-40) % [place] % (Auto) 10.5 (3-14) % Eos % (Auto) 0.5 L (2-4) % Baso % (Auto) 0.5 (0-2) % Neut # (Auto) 5800 (3764-3049) /uL Sodium 137 (137-145) mmol/L Potassium 3.1 L (3.4-5.1) mmol/L Chloride 100 (98-107) mmol/L Carbon Dioxide 25 (22-32) mmol/L BUN 17 (7-17) mg/dL Creatinine 0.60 (0.52-1.04) mg/dL Estimated GFR > 60.0 (>60) mL/min BUN/Creatinine Ratio 28.3 H (6-22) Glucose 83 (70-100) mg/dL Calcium 8.6 (8.4-10.2) mg/dL Total Bilirubin 0.6 (0.2-1.3) mg/dL AST 34 (14-36) IU/L ALT 31 (9-52) IU/L Alkaline Phosphatase 91 (38-126) U/L Total Protein 6.5 (6.3-8.2) g/dL Albumin 3.1 L (3.5-5.0) g/dL Globulin 3.4 (1.7-4.1) g/dL Albumin/Globulin Ratio 0.9 L (1.0-2.8) Lipase 16 L (23-300) U/L Imaging Data Abdominal x-ray: Radiologist's impression: View Report History Print [address] [address] XRay Report Signed Patient: Carol Reyes MR#: [id number] : 1965 Acct:[id number] Age/Sex: 53 / F Date of Service: 06/08/18 Loc: ED Accession Number: [id number] Procedure: XR abdomen min 2V Ordering Provider: Juan Manuel Kurtz PROCEDURE: XR ABDOMEN MIN 2V INDICATIONS: Abdominal pain TECHNIQUE: 2 views of the abdomen were acquired. COMPARISON: [facility], CR, XR ABDOMEN MIN 2V, 05/06/2018, 6:31. [facility], CR, XR ABDOMEN 3V, 05/04/2018, 13:46. [facility], CR, XR ABDOMEN MIN 2V, 04/28/2018, 14:30. FINDINGS: Surgical changes and devices: None. Bowel: No pneumoperitoneum identified. Multiple loops of dilated small bowel with numerous air-fluid levels are seen. Bones: Multilevel degenerative changes of the lumbar spine and mild degenerative changes of the bilateral hip joints noted. IMPRESSION: Bowel gas pattern consistent with small bowel obstruction (less likely ileus). Dictated by: Yoseph Best M.D. on 06/08/2018 at 18:15 Approved by: Yoseph Best M.D. on 06/08/2018 at 18:17 MDM Narrative Medical decision making narrative: CBC Chem panel and lipase were obtained and with exception of mild hypo kalemia for unremarkable. X-ray of the abdomen shows finding consistent with small-bowel obstruction. Discussed case with surgery Dr. Levy who accepted patient for admission. Patient states that she would not like to have a NG tube at this visit. She has had some nausea however she has not been vomiting so issue was not pressed. She is maintained NPO she was given fluids anti nausea medication and pain medication in the emergency room. Patient did not provide a urine sample prior to admission. Patient admitted to inpatient service <Jeana José, - Last Filed: 06/09/18 04:14> Lab Data Lab Results 06/08/18 06/08/18 Range/Units 17:23 17:23 WBC 8.9 (4.5-11.0) X10^3/uL RBC 4.47 (4.0-5.2) X10^6/uL Hgb 13.1 (12.0-16.0) g/dL Hct 38.2 (36-46) % MCV 85.4 (80-100) fL MCH 29.4 (26-34) PG MCHC 34.4 (30-36) % RDW 14.4 (11.6-14.8) % Plt Count 586 H (150-400) X10^3/uL Neut % (Auto) 65.6 (50-75) % Lymph % (Auto) 22.9 L (25-40) % [place] % (Auto) 10.5 (3-14) % Eos % (Auto) 0.5 L (2-4) % Baso % (Auto) 0.5 (0-2) % Neut # (Auto) 5800 (0683-3898) /uL Sodium 137 (137-145) mmol/L Potassium 3.1 L (3.4-5.1) mmol/L Chloride 100 (98-107) mmol/L Carbon Dioxide 25 (22-32) mmol/L BUN 17 (7-17) mg/dL Creatinine 0.60 (0.52-1.04) mg/dL Estimated GFR > 60.0 (>60) mL/min BUN/Creatinine Ratio 28.3 H (6-22) Glucose 83 (70-100) mg/dL Calcium 8.6 (8.4-10.2) mg/dL Total Bilirubin 0.6 (0.2-1.3) mg/dL AST 34 (14-36) IU/L ALT 31 (9-52) IU/L Alkaline Phosphatase 91 (38-126) U/L Total Protein 6.5 (6.3-8.2) g/dL Albumin 3.1 L (3.5-5.0) g/dL Globulin 3.4 (1.7-4.1) g/dL Albumin/Globulin Ratio 0.9 L (1.0-2.8) Lipase 16 L (23-300) U/L Discharge Plan Departure Patient Disposition: Admitted As Inpatient Clinical Impression: Small bowel obstruction Discharge Date/Time: 06/08/18 20:30 Interventions: ED Discharge Assessment Last Done: 06/08/18 20:27 Admit Date/Time: 06/08/18 20:16 Admit Provider: Tate Levy <Jeana Kumar DO - Last Filed: 06/09/18 04:14> Cosign ED Attending Tiffature Attestation: I was immediately available in the department for consultation. Documentation has been reviewed. I agree with assessment and plan.
--- NOTE | 2018-06-08 20:41 | PM.HP.1 ---
History of Present Illness Date Patient Seen: 06/08/18 Time Patient Seen: 20:41 Chief complaint: abd pain Narrative: 53-year-old female well known to me from exploratory laparotomy with extensive lysis of adhesions for bowel obstruction approximately 6 weeks ago now who presents yet again to the emergency department this evening with a 24 hr history of progressive diffuse abdominal pain, distention, and nausea. She has not vomited. She moved her bowels 2 days ago which she describes as diarrhea. She has not moved her bowels today. No melena, hematochezia, bright red blood per rectum. Appetite has been severely diminished over the last 48 hr. She is tolerating only a few bites of food here where there but cannot ingest any more due to nausea and crampy abdominal pain. Unfortunately this represents approximately the 4th or 5th time she has been back to the hospital since discharge from her original operation. She also had hospital stay in [place], [place] at [facility] for what appeared to be a recurrent partial small-bowel obstruction as well. Interestingly, her symptoms resolve after several days in the hospital with each episode but then occur again shortly thereafter. No fever or chills. No dysuria or hematuria. No chest pain or shortness of breath. Patient History Medical History Anxiety disorder (Acute) Morbid obesity with BMI of 45.0-49.9, adult (Acute) Small bowel obstruction due to adhesions (Acute) HTN (hypertension) (Chronic) Migraine (Chronic) Postoperative ileus (Resolved) Surgical History Status post exploratory laparotomy (Acute) Status post appendectomy (Resolved) Status post hysterectomy (Resolved) Family & Social History Social History: household members significant other,family Safety & Behavioral: Feels Safe in Current Yes Environment Tobacco & Substance use: Smoking Status Former smoker alcohol intake frequency holiday/special occasion Substance Use Type does not use Meds Home Medications Medication Instructions Recorded Confirmed Type lisinopril 10 mg PO DAILY 04/21/18 05/27/18 History docusate sodium [Colace] 100 mg PO BID #14 cap 05/10/18 05/27/18 Rx ibuprofen 800 mg PO QID PRN #60 tab 05/10/18 05/27/18 Rx ondansetron HCl [Zofran] 4 mg PO Q6-8H PRN #14 tab 05/10/18 05/27/18 Rx pantoprazole [Protonix] 40 mg PO DAILY #30 tab 05/10/18 05/27/18 Rx sennosides [Senokot] 8.6 mg PO BEDTIME #10 tab 05/10/18 05/27/18 Rx Allergies Allergy/AdvReac Type Severity Reaction Status Date / Time Penicillins Allergy Intermediate Hives Verified 06/08/18 17:15 ranitidine [From Zantac] Allergy Intermediate Hives Verified 06/08/18 17:15 Review of Systems Review of Systems All systems reviewed & are unremarkable except as noted in HPI and below Exam Vital Signs (past 8 hours): - 06/08/18 17:15 06/08/18 18:29 06/08/18 19:15 Temperature 97.9 F Pulse Rate 79 91 H 93 H Respiratory Rate 25 H 12 15 Blood Pressure 178/101 H Blood Pressure [Left Arm] 145/72 H 138/72 Pulse Oximetry 99 92 95 06/08/18 20:08 Temperature Pulse Rate 89 Respiratory Rate 9 L Blood Pressure Blood Pressure [Left Arm] 137/74 Pulse Oximetry 95 Oxygen Delivery Method Room Air Narrative Exam Narrative: Well-nourished well-developed female in no acute distress lying in the gurney in the emergency department. Alert oriented x3 although she has received Zofran and narcotic pain medication prior to my arrival. No crackles or wheezes. Regular rate rhythm Abdomen is soft but obese. Mildly protuberant but not particularly tympanitic. Incision remains well healed. No hernia. She remains tender mostly in the left lateral abdomen and left upper quadrant region. No guarding or rebound. No peritoneal signs. Extremities show no clubbing or cyanosis Objective Labs Result Diagrams: 06/08/18 17:23 06/08/18 17:23 Labs: Laboratory Results - last 24 hr 06/08/18 06/08/18 17:23 17:23 WBC 8.9 RBC 4.47 Hgb 13.1 Hct 38.2 MCV 85.4 MCH 29.4 MCHC 34.4 RDW 14.4 Plt Count 586 H Neut % (Auto) 65.6 Lymph % (Auto) 22.9 L [place] % (Auto) 10.5 Eos % (Auto) 0.5 L Baso % (Auto) 0.5 Neut # (Auto) 5800 Sodium 137 Potassium 3.1 L Chloride 100 Carbon Dioxide 25 BUN 17 Creatinine 0.60 Estimated GFR > 60.0 BUN/Creatinine Ratio 28.3 H Glucose 83 Calcium 8.6 Total Bilirubin 0.6 AST 34 ALT 31 Alkaline Phosphatase 91 Total Protein 6.5 Albumin 3.1 L Globulin 3.4 Albumin/Globulin Ratio 0.9 L Lipase 16 L She has completed plain abdominal x-rays this evening in the emergency department. Again, she has multiple air-fluid levels with dilated small bowel. No free air. Paucity of gas in the colon. Findings are most consistent with recurrent partial small-bowel obstruction. Assessment & Plan Plan: Assessment/Plan Narrative: 53-year-old female with multiple recurrent partial small-bowel obstructions including this current episode. Given her symptoms I would recommend she be readmitted to the hospital. She requires IV fluid resuscitation. Fortunately she has no indications for immediate laparotomy or other surgical intervention. At this point her case is becoming somewhat challenging with regard to management. We could certainly reoperate but I am concerned about ongoing inflammatory healing and the potential for significant bowel injury, infectious complications, poor wound healing, or enterocutaneous fistulas. In addition, 2nd laparotomy would not guarantee that she remains free of adhesions and obstruction long-term. Even if we applied material such as Intercede or some other similar hyaluronic acid I am uncertain if this would prevent ongoing adhesions. She had significant adhesions at her 1st operation. However, it appears somewhat unreasonable that she continues to be readmitted to the hospital almost on a weekly basis. I have considered and discussed with the patient the potential option for long-term TPN with minimal oral intake other than occasional fluids with the hope that her adhesions mature without resulting bowel obstruction. Again, this option is somewhat suboptimal as well. Furthermore, the patient is not completely agreeable to that plan at this time. Long-term enteric tube such as Giovanni tubes are no longer available nor would I think this would be preferable to reoperation if indicated especially since she adamantly expresses her opposition to placement of a nasogastric tube currently. Fortunately she is not having significant vomiting her gastric distention so I believe we can forego an NG tube at this time. Overall, I am not entirely certain what would be the best management option in her case, but I am becoming more inclined to reoperation given that she really is not improving. I will repeat her laboratory and radiographic studies tomorrow. Continue IV fluid resuscitation tonight. Proceed based on her clinical status. All questions were answered to her satisfaction, and she voiced understanding.
[2018-06-08] MEDS: SODIUM CHLORIDE 0.9% 1,000 ML 100 ML IV (21:10)
[2018-06-08] MEDS: HYDROMORPHONE PCA 6 MG/30 ML PCA.VIAL IV (23:01)
--- NOTE | 2018-06-08 23:24 | PC.NURSE ---
zhou note pt reports nausea, no vomiting. Pt denies flatus. Bowel tones only heard in [facility]. Pt reports pain is tolerable with JOINT [employer]NER.
--- NOTE | 2018-06-08 23:51 | PC.NURSE ---
Called Dr. Levy and clarified order for UA in ER if he wants it sent, also noted pt's. K+ level only 3.1, did not want to have UA done and K+ did not need to be replaced at this time.
[2018-06-09] VITALS (9 sets, daily range): BP systolic 129–145; BP diastolic 63–81; PULSE 78–93; RESP 14–16; TEMP 36.4–36.8; O2SAT 92–96
--- NOTE | 2018-06-09 | DI.RAD.S_ITS ---
PROCEDURE: XR ABDOMEN 3V INDICATIONS: Recurrent small bowel obstruction TECHNIQUE: One view chest and two views of the abdomen were acquired. COMPARISON: [facility], CR, XR ABDOMEN MIN 2V, 06/08/2018, 17:55. [facility], CR, XR ABDOMEN MIN 2V, 05/06/2018, 6:31. FINDINGS: Surgical changes and devices: None. Chest: Lungs are clear. Heart size is normal. No pleural effusions. No pneumoperitoneum. Abdomen: Bowel gas pattern is abnormal with several appearance small bowel loops over the mid abdomen at the midline and to the left of midline. No suspicious calcifications. Visualized solid organ contours appear normal. Bones: No suspicious bony lesions. IMPRESSION: No acute disease, no subdiaphragmatic free air. Nonspecific bowel gas pattern over the midabdomen, evacuation of previously present colonic contrast. Several prominent loops remaining midabdomen level likely are small bowel. Dictated by: Delroy Flores M.D. on 06/09/2018 at 10:01 Approved by: Delroy Flores M.D. on 06/09/2018 at 10:02
[2018-06-09] MEDS: ONDANSETRON 4 MG/2 ML INJ IV ×4 (00:03→17:51)
[2018-06-09] MEDS: SODIUM CHLORIDE 0.9% 1,000 ML 1000 ML IV (04:45)
[2018-06-09 05:00] LABS: Add Manual Diff / Slide Review NO; Basophils Percent Auto 0.6 % (0-2); Hematocrit 34.5 % (36-46); Hemoglobin 11.9 g/dL (12.0-16.0); Lymphocytes Percent Auto 29.8 % (25-40); Mean Corpuscular HGB Conc 34.4 % (30-36); Mean Corpuscular Hemoglobin 29.5 PG (26-34); Mean Corpuscular Volume 85.7 fL (80-100); Monocytes Percent Auto 11.8 % (3-14); Neutrophils Absolute Auto 3600 /uL (1500-7000); Neutrophils Percent Auto 56.8 % (50-75); Platelet Count 487 X10^3/uL (150-400); Red Blood Cell Count 4.02 X10^6/uL (4.0-5.2); Red Cell Distribution Width 13.9 % (11.6-14.8); White Blood Cell Count 6.4 X10^3/uL (4.5-11.0)
[2018-06-09 05:13] LABS: BUN Creatinine Ratio 23.3 (6-22); Blood Urea Nitrogen 14 mg/dL (7-17); Calcium 7.9 mg/dL (8.4-10.2); Carbon Dioxide 24 mmol/L (22-32); Chloride 103 mmol/L (98-107); Estimated Glomerular Filt Rate > 60.0 mL/min (>60); Glucose 68 mg/dL (70-100); HEMOLYSIS < 15 (0-50); Sodium 139 mmol/L (137-145)
[2018-06-09 05:16] LABS: Lactate (Lactic Acid) < 0.5 mmol/L (0.7-2.1)
[2018-06-09] MEDS: HYDROMORPHONE PCA 6 MG/30 ML PCA.VIAL IV ×3 (05:48→22:14)
[2018-06-09] MEDS: PANTOPRAZOLE 40 MG VIAL IV (09:57)
[2018-06-09] MEDS: ACETAMINOPHEN 325 MG TABLET 650 MG PO (11:47)
[2018-06-09] MEDS: POTASSIUM CHLORIDE 40 MEQ in SODIUM CHLORIDE 0.9% 500 ML 130 ML IV (11:54)
[2018-06-09] MEDS: ENOXAPARIN 40 MG/0.4 ML SYRINGE SUBCUT (13:41)
--- NOTE | 2018-06-09 14:32 | CM.DANOTE ---
Patient is a 53 year old female READMIT who was admitted today 06/08/18 for Abdominal Pain. Pt has [facility] and [facility] and no listed PCP. EMR was reviewed. Per MD, pt continues to not improve and has been admitted to the hospital almost every week since her inital surgery. Per RN, pt seems to be quite uncomfortable and miserable at this time. Per Dr. Levy and Dr. Mcgowan, pt may need additional surgery but they are trying to avoid surgery at this time as pt is still not very far out from initial surgery and susceptible and vulnerable if further surgery happens again this soon. Plan is for PICC placement likely Monday and start TPN as pt currently not wanting NG tube and likely not needed at this time. Pt confirmed that she lives at home in [place] with her life partner of 23 years and recently her grandkids moved in with them. Pt is typically Independent with ADL's at baseline but since pt's initial admit to [facility] on 04/21/18-05/10/18 she has been in and out of the hospital. Pt states that she discharged home from [facility] and was feeling alright but then recently was in [facility] and developed pain and was admitted to [facility] for a few days and was then discharged home and ended up in [facility] ER on the same day and was admitted to the Acute floor 05/27-05/30/18. Pt was discharged home with no additional services set up. Patient unsure of d/c needs at this time and SW following closely to determine barriers and needs at discharge pending possible surgery and PICC placement. Plan: SW to follow closely to determine d/c planning needs and PICC placement on Monday. SW to see if pt would meet criteria for HH RN to follow closely to hopefully reduce pt's risk of readmit. BRENDAN Daniels Discharge Planning/Care Management CM Discharge Assessment Start: 06/09/18 14:28 Freq: Status: Active Protocol: Document 06/09/18 14:28 BF (Rec: 06/09/18 14:31 BF [id number]) Discharge Planning Assessment Assigned Cook Pickled Meat BRENDAN Robles Advance Directives? No Advance Directives on File No History Provided By Patient Medical Record Has Patient been admitted in last 30 Yes days? Comment Last d/c from [facility] was on 05/30/18 for SBO complications Prior Living Arrangements House Household Members significant other family Type of transporation used prior to Drives own vehicle admit Comment Lives with long time life partner and 2 grandchildren. Independent with ADL's Yes Is patient alert and oriented? Yes Needs Assistance With Managing Medications Home Chores / Shopping Caregiver for Another Yes: 2 grandchildren now living in the home Comment Patient was typically Independent at baseline but since her admit in Apr 2018 pt has been in and out of the hospital for SBO issues and needing assist from family. Comment Unclear at this time Discharge Plan Home Transportation Arrangement Significant other likely can provide transport at d/c. Additional Comment Needs unclear at this time. Whiteboard Updated in Patient Room with Yes name and ext. # of Cook Pickled Meat Review Status In Process Please Provide Date Initial DC 06/09/18 Assessment Was Performed Next Review Type Continued Stay Review
--- NOTE | 2018-06-09 17:30 | PC.NURSE ---
1630 - Pt reports feeling like her IV site to right hand is leaking. Assessed sight. Small amount of moisture noted under dressing. Pt reports that she has had troubles with IV site placement in the past. Discussed PICC line placement. Pt states that she has had PICC lines in the past. FILTER WASHER to call [facility] for placement. Order in chart.
[2018-06-09] MEDS: SODIUM CHLORIDE 0.9% 1,000 ML 100 ML IV (17:53)
--- NOTE | 2018-06-09 18:01 | P.PN_ITS ---
Subjective Date Patient Seen: 06/09/18 Time Patient Seen: 17:56 Interval history: Carol reports that she is quite ?miserable? this morning. She says she has significant pain and has been using her PATTERNMAKER METAL BENCH. She has also had a lot of nausea although currently that has resolved. She has continued to refuse NG tube. She reports that she has had 4 from in the past and they have not done anything so she does not want to have another. Potassium was notably low this morning and she is receiving a K rider now. Lactate and other labs were reassuring this morning. Exam Vital Signs (past 8 hours): - 06/09/18 10:01 06/09/18 11:53 06/09/18 14:14 Temperature 97.6 F Pulse Rate 84 Respiratory Rate 16 Blood Pressure 129/63 Pulse Oximetry 95 93 95 06/09/18 16:24 06/09/18 16:30 Temperature 97.8 F Pulse Rate 80 Respiratory Rate 16 Blood Pressure 142/81 H Pulse Oximetry 95 94 Oxygen Delivery Method Room Air Oxygen Flow Rate 0 Narrative Exam Narrative: Lungs: Clear. Heart: Regular rate and rhythm Abdomen: Soft, active bowel sounds. Tender to palpation globally. Tenderness is centered in the upper midline in the region of the epigastrium. Lower midline incision is well-healed without defect. Extremities: Warm and well perfused Objective Labs Result Diagrams: 06/09/18 04:43 06/09/18 04:43 Labs: Laboratory Results - last 24 hr 06/08/18 06/08/18 06/09/18 17:23 17:23 04:43 WBC 8.9 6.4 RBC 4.47 4.02 Hgb 13.1 11.9 L Hct 38.2 34.5 L MCV 85.4 85.7 MCH 29.4 29.5 MCHC 34.4 34.4 RDW 14.4 13.9 Plt Count 586 H 487 H Neut % (Auto) 65.6 56.8 Lymph % (Auto) 22.9 L 29.8 [place] % (Auto) 10.5 11.8 Eos % (Auto) 0.5 L 1.0 L Baso % (Auto) 0.5 0.6 Neut # (Auto) 5800 3600 Sodium 137 Potassium 3.1 L Chloride 100 Carbon Dioxide 25 BUN 17 Creatinine 0.60 Estimated GFR > 60.0 BUN/Creatinine Ratio 28.3 H Glucose 83 Lactate Calcium 8.6 Total Bilirubin 0.6 AST 34 ALT 31 Alkaline Phosphatase 91 Total Protein 6.5 Albumin 3.1 L Globulin 3.4 Albumin/Globulin Ratio 0.9 L Lipase 16 L 06/09/18 06/09/18 04:43 04:43 WBC RBC Hgb Hct MCV MCH MCHC RDW Plt Count Neut % (Auto) Lymph % (Auto) [place] % (Auto) Eos % (Auto) Baso % (Auto) Neut # (Auto) Sodium 139 Potassium 3.0 L Chloride 103 Carbon Dioxide 24 BUN 14 Creatinine 0.60 Estimated GFR > 60.0 BUN/Creatinine Ratio 23.3 H Glucose 68 L Lactate < 0.5 L Calcium 7.9 L Total Bilirubin AST ALT Alkaline Phosphatase Total Protein Albumin Globulin Albumin/Globulin Ratio Lipase Assessment & Plan Plan: Assessment/Plan Narrative: Unfortunate 53-year-old lady who is back again in the hospital with her 4th or 5th bowel obstruction since operation just a few weeks ago. Replace potassium and recheck labs in the morning. A PICC line has been ordered and will be placed on Monday. We will plan to start TPN on Monday. We will hold off on the NG tube for now as the patient has refused. I would like to perform an upper GI and small-bowel follow-through but I feel that without an NG tube, this is not a safe way to proceed. We will attempt to get her pain under better control.
--- NOTE | 2018-06-09 20:20 | DI.RAD.S_ITS ---
PROCEDURE: XR CHEST 1V INDICATIONS: PICC line placement verification TECHNIQUE: One view of the chest was acquired. COMPARISON: None. FINDINGS: Surgical changes and devices: None. Lungs and pleura: No pleural effusions or pneumothorax. Lungs are clear. Mediastinum: Mediastinal contours appear normal. Heart size is normal. Bones and chest wall: No suspicious bony lesions. Overlying soft tissues appear unremarkable. IMPRESSION: PICC line in normal position from left-sided approach. Dictated by: Delroy Flores M.D. on 06/09/2018 at 20:59 Approved by: Delroy Flores M.D. on 06/09/2018 at 21:00
[2018-06-10] VITALS (10 sets, daily range): BP systolic 144–181; BP diastolic 73–96; PULSE 80–85; RESP 16–18; TEMP 36.6–36.9; O2SAT 94–99
[2018-06-10] MEDS: ONDANSETRON 4 MG/2 ML INJ IV ×4 (00:06→18:31)
[2018-06-10] MEDS: SODIUM CHLORIDE 0.9% 1,000 ML 1000 ML IV ×2 (03:56→14:09)
[2018-06-10 05:49] LABS: Blood Urea Nitrogen 11 mg/dL (7-17); Carbon Dioxide 22 mmol/L (22-32); Chloride 107 mmol/L (98-107); Estimated Glomerular Filt Rate > 60.0 mL/min (>60); Glucose 57 mg/dL (70-100); HEMOLYSIS < 15 (0-50); Potassium 3.5 mmol/L (3.4-5.1); Sodium 140 mmol/L (137-145)
[2018-06-10] MEDS: HYDROMORPHONE PCA 6 MG/30 ML PCA.VIAL IV ×3 (05:58→21:47)
[2018-06-10] MEDS: ENOXAPARIN 40 MG/0.4 ML SYRINGE SUBCUT (09:08)
[2018-06-10] MEDS: PANTOPRAZOLE 40 MG VIAL IV (09:08)
--- NOTE | 2018-06-10 13:17 | PM.PN.1 ---
Subjective Date Patient Seen: 06/10/18 Time Patient Seen: 13:18 Interval history: Carol reports that she is having a lot of crampy pain today. She says the low level of her pain is not significantly different than it was yesterday. She still declining an NG tube. I explained to her this morning that gives us more options for making her pain better but she is adamant that she will not have it. Denies nausea and denies hunger PICC line was placed overnight and her IV infiltrated. Exam Vital Signs (past 8 hours): - 06/10/18 08:00 06/10/18 12:00 Temperature 98.1 F 98.5 F Pulse Rate 85 80 Respiratory Rate 16 16 Blood Pressure 181/91 H 145/88 H Pulse Oximetry 94 96 Oxygen Delivery Method Room Air Oxygen Flow Rate 0 Narrative Exam Narrative: Lungs: Clear bilaterally. Decreased respiratory effort bilaterally Abdomen: Soft, global tenderness to palpation. Hypoactive bowel tones. No rebound or guarding. Extremities: warm well perfused Objective Labs Result Diagrams: 06/09/18 04:43 06/10/18 05:25 Labs: Laboratory Results - last 24 hr 06/10/18 05:25 Sodium 140 Potassium 3.5 Chloride 107 Carbon Dioxide 22 BUN 11 Creatinine 0.50 L Estimated GFR > 60.0 BUN/Creatinine Ratio 22.0 Glucose 57 L Calcium 8.0 L Assessment & Plan Plan: Assessment/Plan Narrative: Recurrent small bowel obstruction. Will recheck labs today including lipase. Start TPN. I have asked the patient once again to reconsider NG tube placement as this would make her much safer and likely relieve her pain. Again she has declined but she has agreed to consider it. We will recheck abdominal x-rays in the morning.
[2018-06-10 14:22] LABS: Lactate (Lactic Acid) < 0.5 mmol/L (0.7-2.1)
[2018-06-10 15:09] LABS: Add Manual Diff / Slide Review NO; Basophils Percent Auto 0.8 % (0-2); Eosinophils Percent Auto 0.9 % (2-4); Hematocrit 31.5 % (36-46); Hemoglobin 10.6 g/dL (12.0-16.0); Lymphocytes Percent Auto 33.5 % (25-40); Mean Corpuscular HGB Conc 33.6 % (30-36); Mean Corpuscular Hemoglobin 29.3 PG (26-34); Mean Corpuscular Volume 87.1 fL (80-100); Monocytes Percent Auto 10.1 % (3-14); Neutrophils Absolute Auto 2900 /uL (1500-7000); Neutrophils Percent Auto 54.7 % (50-75); Platelet Count 413 X10^3/uL (150-400); Red Blood Cell Count 3.62 X10^6/uL (4.0-5.2); Red Cell Distribution Width 14.2 % (11.6-14.8); White Blood Cell Count 5.3 X10^3/uL (4.5-11.0)
[2018-06-10 15:21] LABS: Alanine Aminotransferase 34 IU/L (9-52); Albumin 2.4 g/dL (3.5-5.0); Albumin Globulin Ratio 0.9 (1.0-2.8); Alkaline Phosphatase 67 U/L (38-126); Aspartate Aminotransferase 18 IU/L (14-36); Bilirubin Total 0.1 mg/dL (0.2-1.3); Blood Urea Nitrogen 8 mg/dL (7-17); Calcium 7.4 mg/dL (8.4-10.2); Carbon Dioxide 21 mmol/L (22-32); Chloride 108 mmol/L (98-107); Estimated Glomerular Filt Rate > 60.0 mL/min (>60); Globulin 2.7 g/dL (1.7-4.1); Glucose 50 mg/dL (70-100); HEMOLYSIS < 15 (0-50); Potassium 3.1 mmol/L (3.4-5.1); Sodium 139 mmol/L (137-145); Total Protein 5.1 g/dL (6.3-8.2)
[2018-06-10] MEDS: AA 5 %/CALCIUM/LYTES/DEXT 20 % 1,500 ML with MULTIVITAMIN 10 ML, TRACE ELEMENTS 1 ML, F... 63.042 ML IV (18:19)
[2018-06-10] MEDS: FAT EMULSIONS 50 GM/250 ML EMULSION IV (18:25)
[2018-06-11] VITALS (8 sets, daily range): BP systolic 137–165; BP diastolic 74–100; PULSE 76–85; RESP 15–20; TEMP 36.4–36.8; O2SAT 94–95
[2018-06-11] MEDS: ONDANSETRON 4 MG/2 ML INJ IV ×5 (00:17→23:57)
[2018-06-11] MEDS: SODIUM CHLORIDE 0.9% 1,000 ML 100 ML IV ×2 (01:02→10:57)
[2018-06-11] MEDS: HYDROMORPHONE PCA 6 MG/30 ML PCA.VIAL IV ×2 (06:00→14:13)
--- NOTE | 2018-06-11 07:46 | P.PN_ITS ---
Subjective Date Patient Seen: 06/11/18 Time Patient Seen: 07:41 Interval history: Carol continues to complain of intermittent nausea and crampy abdominal pain throughout the day. She is not passing flatus. She has not had a bowel movement since admission. She continues to refuse nasogastric tube placement. She is not vomiting. She feels subjectively distended. Pain is mostly on the left side of the abdomen as per her admission findings. Denies any subjective fever or chills. No chest pain or shortness of breath. Pain is controlled currently with MILK HAULER. She is now on TPN. States she is not particularly hungry at this time. Exam Vital Signs (past 8 hours): - 06/11/18 01:00 06/11/18 05:58 Temperature 97.9 F Pulse Rate 80 Respiratory Rate 18 Blood Pressure 159/86 H Pulse Oximetry 95 95 Oxygen Delivery Method Room Air Oxygen Flow Rate 0 Narrative Exam Narrative: Patient remains afebrile with no tachycardia. Blood pressure stable. Adequate urine output She is lying in bed this morning somewhat somnolent but in no acute distress. Alert and oriented x3 Chest clear to auscultation bilaterally with regular rate and rhythm. No crackles or wheezes. Abdomen is soft but remains mildly distended. She is not tympanitic. Midline incision remains well healed. No hernias. She does have bowel sounds throughout. She is diffusely tender but mostly in the left lateral to left upper quadrant region. No guarding or rebound, but her examination has essentially remained unchanged since admission 3 days ago. Extremities show no clubbing or cyanosis Objective Labs Result Diagrams: 06/10/18 15:00 06/10/18 15:00 Labs: Laboratory Results - last 24 hr 06/10/18 06/10/18 06/10/18 14:00 15:00 15:00 WBC 5.3 RBC 3.62 L Hgb 10.6 L Hct 31.5 L MCV 87.1 MCH 29.3 MCHC 33.6 RDW 14.2 Plt Count 413 H Neut % (Auto) 54.7 Lymph % (Auto) 33.5 [place] % (Auto) 10.1 Eos % (Auto) 0.9 L Baso % (Auto) 0.8 Neut # (Auto) 2900 Sodium 139 Potassium 3.1 L Chloride 108 H Carbon Dioxide 21 L BUN 8 Creatinine 0.50 L Estimated GFR > 60.0 BUN/Creatinine Ratio 16.0 Glucose 50 L Lactate < 0.5 L Calcium 7.4 L Total Bilirubin 0.1 L AST 18 ALT 34 Alkaline Phosphatase 67 Total Protein 5.1 L Albumin 2.4 L Globulin 2.7 Albumin/Globulin Ratio 0.9 L Assessment & Plan Plan: Assessment/Plan Narrative: 53-year-old female with ongoing partial small-bowel obstruction. Again, she has never really completely resolved the obstruction since discharge from the hospital 1 month ago. She continues to require hospital care for supportive measures including hydration and intravenous nutrition. She continues to refuse NG placement despite recommendations now to the contrary. I agree that she would potentially benefit from gastric decompression. This may help with her crampy abdominal pain as well as allow for possible small-bowel follow- through study or other medications to assist with bowel function. We will continue TPN for now and repeat laboratory studies tomorrow. Assist bowel function with a suppository today. I once again discussed the potential need for reoperation, but she does not require any intervention urgently at the current time. All questions were answered to her satisfaction, and she voiced understanding. Orders were written.
[2018-06-11] MEDS: BISACODYL 10 MG SUPP PR (09:15)
[2018-06-11] MEDS: ENOXAPARIN 40 MG/0.4 ML SYRINGE SUBCUT (09:15)
[2018-06-11] MEDS: PANTOPRAZOLE 40 MG VIAL IV (09:16)
--- NOTE | 2018-06-11 14:38 | PC.NURSE ---
AM NOTE - continued with on/off nausea at times, abd discomfort, admin dulcolax suppos this am and ambul br w/flatus only.
[2018-06-11] MEDS: POTASSIUM CHLORIDE IV (18:53)
[2018-06-11] MEDS: LYTES IV (18:53)
[2018-06-11] MEDS: [UNRECOGNIZED DRUG - OTHER] IV (18:53)
[2018-06-11] MEDS: CALCIUM IV (18:53)
[2018-06-11] MEDS: FAT EMULSIONS 50 GM/250 ML EMULSION IV (18:53)
[2018-06-11] MEDS: DEXT IV (18:53)
[2018-06-11] MEDS: SODIUM CHLORIDE 0.9% 500 ML 21 ML IV ×2 (20:30→22:11)
[2018-06-11] MEDS: HYDROMORPHONE PCA 6 MG/30 ML PCA.VIAL 2.8 MG IV (22:30)
[2018-06-12] VITALS (9 sets, daily range): BP systolic 146–196; BP diastolic 81–118; PULSE 78–94; RESP 16–18; TEMP 36.6–36.8; O2SAT 95–98
[2018-06-12 05:22] LABS: Add Manual Diff / Slide Review NO; Basophils Percent Auto 0.6 % (0-2); Eosinophils Percent Auto 0.9 % (2-4); Hematocrit 33.7 % (36-46); Hemoglobin 11.4 g/dL (12.0-16.0); Lymphocytes Percent Auto 30.2 % (25-40); Mean Corpuscular HGB Conc 33.7 % (30-36); Mean Corpuscular Hemoglobin 29.3 PG (26-34); Mean Corpuscular Volume 86.8 fL (80-100); Monocytes Percent Auto 11.7 % (3-14); Neutrophils Absolute Auto 2500 /uL (1500-7000); Neutrophils Percent Auto 56.6 % (50-75); Platelet Count 395 X10^3/uL (150-400); Red Blood Cell Count 3.88 X10^6/uL (4.0-5.2); Red Cell Distribution Width 14.3 % (11.6-14.8); White Blood Cell Count 4.4 X10^3/uL (4.5-11.0)
[2018-06-12 05:30] LABS: Blood Urea Nitrogen 6 mg/dL (7-17); Calcium 8.4 mg/dL (8.4-10.2); Carbon Dioxide 28 mmol/L (22-32); Chloride 105 mmol/L (98-107); Estimated Glomerular Filt Rate > 60.0 mL/min (>60); Glucose 143 mg/dL (70-100); HEMOLYSIS < 15 (0-50); Magnesium 1.7 mg/dL (1.6-2.3); Phosphorous 3.4 mg/dL (2.5-4.5); Potassium 3.3 mmol/L (3.4-5.1); Sodium 140 mmol/L (137-145)
[2018-06-12] MEDS: ONDANSETRON 4 MG/2 ML INJ IV ×3 (05:49→17:59)
[2018-06-12] MEDS: HYDROMORPHONE PCA 6 MG/30 ML PCA.VIAL IV ×2 (05:50→13:13)
[2018-06-12] MEDS: PANTOPRAZOLE 40 MG VIAL IV (10:06)
[2018-06-12] MEDS: ENOXAPARIN 40 MG/0.4 ML SYRINGE SUBCUT (10:06)
--- NOTE | 2018-06-12 10:48 | P.PN_ITS ---
Subjective Date Patient Seen: 06/12/18 Time Patient Seen: 10:45 Interval history: Carol reports she is in a little bit less pain today. She says her abdomen is just really uncomfortable now and she feels a lot of pressure. She passed a tiny bit of flatus overnight. She denies any nausea. Exam Vital Signs (past 8 hours): - 06/12/18 04:15 Temperature 98 F Pulse Rate 86 Respiratory Rate 17 Blood Pressure 151/81 H Pulse Oximetry 97 Oxygen Delivery Method Room Air Oxygen Flow Rate 0 Narrative Exam Narrative: Pleasant lady in no obvious distress this morning Lungs: Clear bilaterally. Decreased respiratory effort Heart: Regular rate and rhythm Abdomen: Soft, globally tender to palpation but without rebound or guarding. Active bowel sounds. Extremities: Warm and well perfused Objective Labs Result Diagrams: 06/12/18 04:55 06/12/18 04:55 Labs: Laboratory Results - last 24 hr 06/12/18 06/12/18 04:55 04:55 WBC 4.4 L RBC 3.88 L Hgb 11.4 L Hct 33.7 L MCV 86.8 MCH 29.3 MCHC 33.7 RDW 14.3 Plt Count 395 Neut % (Auto) 56.6 Lymph % (Auto) 30.2 [place] % (Auto) 11.7 Eos % (Auto) 0.9 L Baso % (Auto) 0.6 Neut # (Auto) 2500 Sodium 140 Potassium 3.3 L Chloride 105 Carbon Dioxide 28 BUN 6 L Creatinine 0.50 L Estimated GFR > 60.0 BUN/Creatinine Ratio 12.0 Glucose 143 H Calcium 8.4 Phosphorus 3.4 Magnesium 1.7 Assessment & Plan Plan: Assessment/Plan Narrative: Recurrent bowel obstruction in the setting of a generally healthy 53-year-old lady. We will continue TPN. Blood sugars have been reasonable on this formula. Strict NPO as there is no NG tube in place.
[2018-06-12] MEDS: FAT EMULSIONS 50 GM/250 ML EMULSION IV (17:59)
[2018-06-12] MEDS: POTASSIUM CHLORIDE IV (18:13)
[2018-06-12] MEDS: [UNRECOGNIZED DRUG - OTHER] IV (18:13)
[2018-06-12] MEDS: CALCIUM IV (18:13)
[2018-06-12] MEDS: DEXT IV (18:13)
[2018-06-12] MEDS: LYTES IV (18:13)
[2018-06-12] MEDS: LORazepam 2 MG/ML SYRINGE 1 MG IV (19:30)
[2018-06-12] MEDS: HYDROMORPHONE PCA 6 MG/30 ML PCA.VIAL 1.8 MG IV (21:44)
--- NOTE | 2018-06-12 22:20 | PC.NURSE ---
New orders per Dr. Mcgowan; Ativan 1mg IVP Q-4hr PRN for headaches, and Lisinopril 10mg PO with small sip water for HTN 196/112 78,and 178/118 94. NPO at midnight (no ice chips or candy) for surgery with Dr. Levy in AM. BT absent/hypo, chronic nausea all shift with mild distention and pain, using SOUND EDITOR for 1.8mg this shift. BRANDON dbl PICC; TPN @ 63, Lipids @ 25, and NS @ 21 for SOUND EDITOR dilaudid. 98%RA, LS clear. SBA to BRP to void clear paola urine. Bed alarm on.
[2018-06-12] MEDS: LISINOPRIL 10 MG TABLET PO (22:56)
[2018-06-13] VITALS (22 sets, daily range): BP systolic 127–179; BP diastolic 74–104; PULSE 82–117; RESP 13–24; TEMP 36.3–37.5; O2SAT 88–100; BMI 45.7
[2018-06-13] MEDS: ONDANSETRON 4 MG/2 ML INJ IV ×4 (00:08→20:13)
[2018-06-13] MEDS: LORazepam 2 MG/ML SYRINGE 1 MG IV ×4 (01:16→21:53)
[2018-06-13] MEDS: HYDROMORPHONE PCA 6 MG/30 ML PCA.VIAL IV ×2 (05:36→11:43)
--- NOTE | 2018-06-13 08:39 | P.PN_ITS ---
Subjective Date Patient Seen: 06/13/18 Time Patient Seen: 08:35 Interval history: Patient continues to have intermittent nausea. Crampy diffuse abdominal pain intermittently as well. No vomiting however. Denies any subjective fever or chills. No chest pain or shortness of breath. Continues to refuse nasogastric tube. No flatus. Had 1 small bowel function with rectal suppository approximately 2 days ago but none since. No dysuria or hematuria. Pain is controlled. Exam Vital Signs (past 8 hours): - 06/13/18 04:00 06/13/18 07:30 Temperature 97.9 F 98.0 F Pulse Rate 84 82 Respiratory Rate 18 18 Blood Pressure 154/103 H 161/87 H Pulse Oximetry 96 95 Oxygen Delivery Method Room Air Oxygen Flow Rate 0 Narrative Exam Narrative: Remains afebrile. Alert oriented x3. However, she appears mildly acutely ill. No tachycardia Blood pressure shows hypertension since she is off of her usual medication. Chest clear to auscultation bilaterally with regular rate and rhythm. No murmurs , gallops, rubs. No crackles or wheezes. Abdomen is soft and mildly distended. She is not tympanitic however. No hernias and midline incision is otherwise well healed. She remains tender in the left lateral aspect of the abdomen with no guarding or rebound. Extremities show no clubbing or cyanosis Objective Labs Result Diagrams: 06/12/18 04:55 06/12/18 04:55 Labs: No new radiographic studies review today. Laboratory studies yesterday are as above. Mildly hypokalemic but otherwise unremarkable. Assessment & Plan Plan: Assessment/Plan Narrative: 53-year-old female with recurrent on resolving small-bowel obstruction. She has been hospitalized multiple times in the last 6 or 7 weeks since her initial operation on April 25, 2018 for small bowel obstruction. She required laparotomy with extensive lysis of adhesions at that time. I suspect that her adhesions have formed once again, and she simply is not progressing. We really have no other alternative at this point but to proceed with repeat laparotomy and lysis of adhesions with possible small bowel resection. Small possibility of ostomy which I reviewed with the patient today as well. The technical details of the procedure as well as anticipated healing and recovery times with ongoing hospitalization were explained in detail. Again, I anticipate that she will have quite a prolonged postoperative ileus. She will need ongoing TPN support for nutrition. We discussed the risks, benefits, and alternatives. Risks including but not limited to anesthesia, bleeding, infection, pain, scars , future incisional hernias, recurrent small-bowel obstruction, need for transfusion, hematoma, seroma, poor wound healing, small-bowel injury, colon injury, bladder injury, ureter injury, fistula, and need for further major abdominal surgery or other procedures were discussed in detail. All questions were answered to her satisfaction, and she voiced understanding. Consent was placed on the chart. Orders written. We will proceed as above later today.
[2018-06-13] MEDS: PANTOPRAZOLE 40 MG VIAL IV (11:21)
--- NOTE | 2018-06-13 13:02 | PM.PREOP ---
Pre-operative Note Interval Note History & Physical reviewed/Exam performed by Physician: Yes Changes to H&P: No H&P completed within 30 days and has changed as indicated here:: Patient seen and examined again today. History and physical examination within the last 5 days remains on the chart and otherwise unchanged. Proceed today as planned with urgent laparotomy for small-bowel obstruction.
[2018-06-13] MEDS: LACTATED RINGERS 1,000 ML 42 ML IV ×4 (13:18→17:31)
[2018-06-13] MEDS: CEFOTETAN 2 GM/50 ML PIGGYBACK IV ×2 (13:26→18:18)
--- NOTE | 2018-06-13 14:25 | SUR.OPER ---
Supine on padded OR bed, head on pillow, arms secured on padded arm boards at <90 degrees abduction, legs uncrossed, safety belt at thigh, tape over blanket over lower legs.
--- NOTE | 2018-06-13 14:29 | PC.NURSE ---
Pre-op: Pt readied for OR and left at 1230. Anxious, ativan givin and effective. DENTAL AMALGAM PROCESSOR - minimal amts used, pt doesn't like to take it. Med with fair relief. Nausea off and on. Abd pain is a little worse today and she did make Dr. Levy aware. Pt has contacted her family and friends. No complaints when she left, just wants to feel better and start healing.
[2018-06-13] MEDS: fentaNYL 100 MCG/2 ML INJ 50 MCG IV ×2 (18:55→19:10)
--- NOTE | 2018-06-13 19:09 | P.OP_ITS ---
Operative Date/Time/Diagnoses Date of procedure: 06/13/18 Time of procedure: 19:05 Pre-op diagnosis: Recurrent small bowel obstruction Post-op diagnosis: same Procedure & Clinicians Procedure: 1. Exploratory laparotomy with extensive lysis of adhesions 2. Repair of enterotomy 3. Placement of Mago gastrostomy tube 4. First and 2nd assistant tennis coach to the operation was provided by both Dr. Neli Wills and Dr. Kiana Mcgowan Same procedure as scheduled: Yes Indications: 53-year-old female now approximately 7 weeks status post exploratory laparotomy with extensive lysis of adhesions for small-bowel obstruction who has had multiple readmissions to the hospital for recurrent small-bowel obstruction. She has been unable to maintain oral intake and significant nutritional support since her original operation on April 25, 2018. She has had at least 3 readmissions since surgery with evidence of recurrent small-bowel obstruction each time. She was admitted 5 days ago with similar symptoms and radiographic findings consistent with small-bowel obstruction. However, she refused nasogastric tube insertion. Her examination and ongoing evaluation continue to support a persistent bowel obstruction at showed no signs of resolution despite NPO status and TPN support. She was having no bowel function. She continued to have significant nausea despite NPO status as well as abdominal pain. After lengthy consideration of potential management options she was recommended to undergo repeat exploratory laparotomy. Surgeon: [employer] Delivery Consultant: Kary Mcgowan Click Yes if Unassisted: No Anesthesia Type: General and Epidural Operative Notes Findings: 1. Dense scar at the inferior aspect of the existing laparotomy wound 2. Extensive dense adhesions throughout the entire abdomen from the anterior abdominal wall to the pelvis to the bilateral abdominal pitts. 3. Clearly obstructed chronically thickened and dilated small bowel. Point of obstruction appeared to be in the left lower quadrant extending toward the pelvis contained within a dense intake amount of small bowel loops adjacent to the sigmoid colon which was also densely adherent to the adjacent bowel as well as the left lateral pelvic sidewall 4. Small inadvertent enterotomy created measuring approximately 1 cm in length along a inflamed dilated loop of bowel which was subsequently repaired in a 2 layer fashion 5. No evidence of ischemic bowel, fistulas, or abscess 6. Essentially frozen pelvis with inability to gain access to the lower abdomen and pelvis despite extensive prolonged meticulous dissection and lysis of adhesions in this area 7. Inability to completely liberate the bowel loops in the left lower quadrant due to the significant adhesions as described above. Essentially there were absolutely no planes between bowel loops or other tissues that allowed for any type of safe dissection without high risk of enterotomy, colotomy, bladder injury, or even potential injury to left retroperitoneal structures such as ureter and iliac vessels 8. Placement of 22 [place] ZORAN gastrostomy tube in standard Mago fashion left to gravity drainage. Tube was secured at approximately 6 cm at the level of the skin. 9. Feculent drainage from the stomach both via NG tube and gastrostomy tube Closure Type: primary Specimen(s): none sent Implants & Drains: Mago gastrostomy tube as above Applied: device(s) (See above) Estimated Blood Loss (mL): 250 Blood products transfused: none Procedure in detail: After obtaining informed consent the patient was brought to the operating room placed supine on the table. After satisfactory induction of anesthesia a Chaparro catheter was inserted to decompress the urinary bladder and left in place throughout the case. Of note, an epidural pain catheter had been placed per the anesthesiology service prior to surgery. Please see their notes for further detail. Nasogastric tube was inserted per the anesthesiology service after induction of anesthesia with return of feculent material. Abdomen was prepped and draped in usual sterile fashion. SCOAP time out was performed per standard protocol. Vertical midline incision was created incorporating the existing scar using 10 scalpel blade. Bovie was used to achieve hemostasis and carried the dissection down through the subcutaneous tissue to the rectus fascia. Existing Prolene suture was identified and removed with hemostats and curved Melendez scissors. Fascia was entered in the midline above the existing scar. Underlying peritoneum was entered under direct visualization using hemostats and the surgeon's finger was inserted thereby sweeping adhesions away from the superior aspect of the peritoneal surface. Over the Surgeons inserted fingers the fascia was eventually opened with a combination of the Bovie and Metzenbaum scissors. Even this part of the dissection took some time to safely enter the abdomen. There were significant adhesions as above between the omentum, small bowel loops, and anterior abdominal wall. Kenny clamps were placed on the fascia and elevated into the operative field. Meticulous sharp and blunt dissection using Metzenbaum scissors and the surgeon's fingers respectively were employed to liberate the adhesions. Eventually the peritoneal cavity was entered and exposure was achieved with the Bookwalter retractor. Hemostasis was achieved with a combination of 3 0 silk suture ligatures and the Bovie. Essentially this was an extremely hostile abdomen with extensive dense adhesions as above. Small bowel was clearly dilated and inflamed as well as edematous consistent with chronic obstruction. Again prolonged meticulous dissection was employed with a combination of blunt technique as well as Metzenbaum scissors with findings as above. This was an extremely difficult technically demanding operative procedure. An inadvertent enterotomy was created in a vertical fashion as above and repaired with inner layer of running 3 0 Vicryl suture followed by outer layer of interrupted seromuscular 3 0 silk suture. After significant time was spent attempting to liberate the bowel loops and identify the exact point of obstruction it became apparent that further attempts at dissection in this area , namely the left lower quadrant extending toward the pelvic inlet carried extremely high unacceptable risk of colon injury, small bowel injury, or even ureter or bladder injury. Because the bowel was so densely adherent to itself and adjacent peritoneal surfaces I felt that an inadvertent bowel injury in the colon or small bowel would likely not be able to be adequately repaired. Even the prospect of a colostomy in the event of left colon injury was prohibitive given the significant adhesions and inability to totally mobilize the colon. I did identify some decompressed loops of small bowel which were not obstructed toward the right lower quadrant but could not completely liberate these either even with an approach from the right lower quadrant region toward the pelvis. The overlying adhesions and inability to identify any type of tissue plane between the peritoneum and bowel loops made it technically impossible to liberate the bowel and enter the pelvis in an effort to mobilize these densely adherent left lower quadrant bowel loops. In fact, I left some peritoneum on the small bowel surface in an attempt to find a plane beyond the dense adhesions but was unsuccessful in doing so. After extensive dissection and attempts as above I elected to abandon this part of the procedure after consulting with my colleagues who assisted with the case. We were all in agreement that further attempts would potentially cause irreparable damage and high risk of significant and even life-threatening complications. At this point I elected to place a gastrostomy tube for decompression purposes as well as enteral access and relegate the patient to prolonged TPN nutritional support. The hope would be that she eventually heals all of the inflammation and dense adhesions within the abdominal cavity and possibly return to the operating room , if indicated, at a tertiary center for definitive operation if the bowel obstruction does not completely resolve after several months. I therefore turned my attention to the epigastrium. Palpation of the stomach revealed a nasogastric tube to be in good position. Aspen clamps were placed on the greater curvature of the stomach and it was retracted inferiorly after placing the patient in reverse Trendelenburg position. Concentric 2 0 silk pursestring sutures were placed on the anterior gastric wall. Stab incision was made in the left upper quadrant with 15 scalpel blade followed by large tonsil clamp and the gastrostomy tube was placed percutaneously into the peritoneal cavity. Gastrostomy was then created at the central aspect of the pursestring sutures with the Bovie and hemostats. Tip of the gastrostomy tube was placed into the gastric lumen and the balloon was inflated with 10 cc of saline. The pursestring sutures were secured. Four individual 3 0 silk interrupted sutures were then placed circumferentially around the gastrostomy tube site to secure the stomach to the anterior abdominal wall. Gastrostomy flange was then secured to the skin with 2 individual interrupted 0 Prolene suture. Wound was irrigated with copious amounts of sterile saline solution since there had been some spillage from the enterotomy. Irrigant returned clear. The enterotomy was again examined and noted to be patent as well as without leakage. Abdomen was then closed with 2 individual running 1 Prolene sutures tied in the midline after placing Interceed deep to the fascia over the exposed bowel loops. Subcutaneous tissue was irrigated with copious amounts of sterile saline solution and noted be hemostatic. Skin was closed with boyd. Sterile dressing was applied. Gastrostomy tube was placed to gravity drainage via a Chaparro bag. Anesthesia was reversed and patient extubated in the operating room. She was taken recovery in stable condition. Complications: none
--- NOTE | 2018-06-13 19:33 | SUR.PHASEI ---
Pt transferred to room 102 in ICU. Report called to JUNIOR Bynum in ICU. Pt's vital signs stable; see electronic documentation. Abdominal drain in place draining brown drainage. Epidural catheter in place to be initiated in ICU with anesthesia provider. NG tube to low intermittent suction with brown drainage.
[2018-06-13] MEDS: SODIUM CHLORIDE 0.9% 1,000 ML 84 ML IV (20:00)
[2018-06-13] MEDS: FENT 2MCG/BUPIV 0.125% EPI 2 MCG/100 ML PLAST..BAG 8 MCG EPIDURAL (20:00)
[2018-06-13] MEDS: POTASSIUM CHLORIDE IV (20:13)
[2018-06-13] MEDS: CALCIUM IV (20:13)
[2018-06-13] MEDS: LYTES IV (20:13)
[2018-06-13] MEDS: DEXT IV (20:13)
[2018-06-13] MEDS: [UNRECOGNIZED DRUG - OTHER] IV (20:13)
[2018-06-13 20:36] LABS: Hemoglobin 13.4 g/dL (12.0-16.0)
--- NOTE | 2018-06-13 21:32 | PC.NURSE ---
Addendum entered by Misa Davis R.N. 06/13/18 23:18: 2230 - Pt with increasing pain, Reports 7 of 10, Restless, anxious, Hr increasing 120's with activity. Requesting to go home. BP 163/104. Dr. Hernadez notified. States that he will be down to assess pt. Dermatome level approximately T7. Bolus given. Increased epidural rate to 12ml/hr. Cool cloth to pt forehead. Reassurance provided. Original Note: 1944 - Pt to room from PACU. Drowsy, C/o nausea and 10/10 pain. Zorfan given. FRONT END APPLICATION DEVELOPER reports anesthesiologist will be in to initated epidural gtt. Abd drsg CDI, NGT to LIS, and Abd drain to gravity, both draining brown-fecal type material. 1999 - Fentanyl and bupivicaine gtt initiated by anesthesia at 8ml/hr. BG 98. TPN and IVF initated. 2199 - PT requesting to reposition, had turned herself to left sidelying. Assisting to turn to right, Abd drain found to by disconnected. Linen change and drain secured with zip tie. Encourage pt to call for assistance prior to repositioning, r/t tubes and wires. Pt repeatedly requesting water. Oral care provided. Also requesting, something to make me go to sleep. Ativan given. at bedside. Warm blanket provided. Call light in reach.
[2018-06-14] VITALS (30 sets, daily range): BP systolic 80–151; BP diastolic 37–87; PULSE 87–124; RESP 14–89; TEMP 36.8–37.4; O2SAT 90–100; BMI 45.2
[2018-06-14] MEDS: BENZOCAINE/MENTHOL 1 LOZ PKT 1 EACH PO ×2 (01:55→12:38)
[2018-06-14] MEDS: LORazepam 2 MG/ML SYRINGE 1 MG IV (02:16)
[2018-06-14 04:58] LABS: Add Manual Diff / Slide Review NO; Basophils Percent Auto 0.3 % (0-2); Eosinophils Percent Auto 0.1 % (2-4); Hematocrit 37.9 % (36-46); Hemoglobin 12.4 g/dL (12.0-16.0); Lymphocytes Percent Auto 8.1 % (25-40); Mean Corpuscular HGB Conc 32.9 % (30-36); Mean Corpuscular Hemoglobin 28.8 PG (26-34); Mean Corpuscular Volume 87.6 fL (80-100); Monocytes Percent Auto 4.8 % (3-14); Neutrophils Absolute Auto 15600 /uL (1500-7000); Neutrophils Percent Auto 86.7 % (50-75); Platelet Count 347 X10^3/uL (150-400); Red Blood Cell Count 4.32 X10^6/uL (4.0-5.2); Red Cell Distribution Width 14.4 % (11.6-14.8)
--- NOTE | 2018-06-14 05:12 | PC.NURSE ---
Pts. epidural bag run out, had to change the tubing. Pt. probably did not receive the epidural med for approximately 10-[address] Casillas called and informed of the incident, he came and gave pt. a bolus of 5 mg of Bupivicaine. Informed him also that pt. does not have any other pain med but does have Ativan for anxiety. No order received, will continue to monitor.
[2018-06-14 05:18] LABS: Alanine Aminotransferase 28 IU/L (9-52); Albumin 2.3 g/dL (3.5-5.0); Albumin Globulin Ratio 0.9 (1.0-2.8); Alkaline Phosphatase 51 U/L (38-126); Aspartate Aminotransferase 26 IU/L (14-36); BUN Creatinine Ratio 21.4 (6-22); Bilirubin Total 0.2 mg/dL (0.2-1.3); Blood Urea Nitrogen 15 mg/dL (7-17); Calcium 7.8 mg/dL (8.4-10.2); Carbon Dioxide 29 mmol/L (22-32); Chloride 101 mmol/L (98-107); Estimated Glomerular Filt Rate > 60.0 mL/min (>60); Globulin 2.6 g/dL (1.7-4.1); Glucose 170 mg/dL (70-100); HEMOLYSIS < 15 (0-50); Magnesium 1.3 mg/dL (1.6-2.3); Phosphorous 2.5 mg/dL (2.5-4.5); Potassium 4.3 mmol/L (3.4-5.1); Sodium 136 mmol/L (137-145); Total Protein 4.9 g/dL (6.3-8.2)
[2018-06-14] MEDS: CEFOTETAN 2 GM/50 ML PIGGYBACK IV ×2 (05:42→18:20)
[2018-06-14] MEDS: INSULIN ASPART 100 UNIT/ML INSULN PEN SUBCUT ×3 (06:45→18:19)
[2018-06-14] MEDS: ENOXAPARIN 40 MG/0.4 ML SYRINGE SUBCUT (08:55)
[2018-06-14] MEDS: PANTOPRAZOLE 40 MG VIAL IV (08:55)
[2018-06-14] MEDS: MAGNESIUM SULFATE 4 GM/100 ML PIGGYBACK IV (08:55)
[2018-06-14] MEDS: SODIUM CHLORIDE 0.9% 1,000 ML 500 ML IV (08:56)
[2018-06-14] MEDS: SODIUM CHLORIDE 0.9% 1,000 ML 84 ML IV (08:56)
--- NOTE | 2018-06-14 09:06 | P.PN_ITS ---
Subjective Date Patient Seen: 06/14/18 Time Patient Seen: 09:01 Interval history: Patient quite somnolent this morning. She received Ativan at approximately 4:00 a.m. this morning prior to my visit. She has been complaining intermittently of pain which has been somewhat controlled with the epidural in conjunction with the Ativan. By nursing reports he has been either extremely somnolent or complaining of pain without any significant happy medium regarding analgesia. Denies subjective fever or chills but again she is somewhat somnolent this morning repeatedly requesting ice chips. She is arousable and otherwise alert but again does not converse appropriately due to her somnolence. By nursing notes she has been afebrile and otherwise hemodynamically stable overnight. No tachycardia this morning although she had some initially after surgery. Urine output was adequate overnight but within the last hr she has had only 15 cc urine output in the Chaparro bag. Exam Vital Signs (past 8 hours): - 06/14/18 02:00 06/14/18 03:00 06/14/18 04:00 Temperature 99.2 F Pulse Rate 110 H 113 H 117 H Respiratory Rate 21 20 25 H Blood Pressure 112/63 127/63 108/58 L Pulse Oximetry 96 97 95 06/14/18 05:00 06/14/18 06:00 06/14/18 07:00 Temperature 98.3 F Pulse Rate 124 H 104 H 87 Respiratory Rate 25 H 17 89 H Blood Pressure 131/71 94/49 L 94/54 L Pulse Oximetry 96 98 98 06/14/18 08:00 Temperature Pulse Rate 89 Respiratory Rate 24 Blood Pressure 101/55 L Pulse Oximetry 98 Oxygen Delivery Method Nasal Cannula Oxygen Flow Rate 2 Narrative Exam Narrative: Patient lying in bed as above. Family is at the bedside for my visit. Currently tachycardic but somewhat agitated. Gastric tube output and NG tube output remains feculent. Several 100 cc output in the G-tube since surgery. Urine is clear in the Chaparro bag Chest shows some mild expiratory wheezes but she has poor inspiratory effort. No murmurs. Abdomen is soft and distended. She is appropriately tender without guarding or rebound. Dressing is clean, dry, and intact. Extremities show no clubbing or cyanosis Objective Labs Result Diagrams: 06/14/18 04:41 06/14/18 04:41 Labs: Laboratory Results - last 24 hr 06/13/18 06/13/18 06/14/18 20:20 20:20 04:41 WBC 18.0 H D RBC 4.32 Hgb 13.4 12.4 Hct 41.0 37.9 MCV 87.6 MCH 28.8 MCHC 32.9 RDW 14.4 Plt Count 347 Neut % (Auto) 86.7 H D Lymph % (Auto) 8.1 L D Montgomery % (Auto) 4.8 Eos % (Auto) 0.1 L Baso % (Auto) 0.3 Neut # (Auto) 57942 H Sodium Potassium Chloride Carbon Dioxide BUN Creatinine Estimated GFR BUN/Creatinine Ratio Glucose Calcium Phosphorus Magnesium Total Bilirubin AST ALT Alkaline Phosphatase Total Protein Albumin Globulin Albumin/Globulin Ratio Blood Type AB Positive Antibody Screen Negative 06/14/18 04:41 WBC RBC Hgb Hct MCV MCH MCHC RDW Plt Count Neut % (Auto) Lymph % (Auto) Montgomery % (Auto) Eos % (Auto) Baso % (Auto) Neut # (Auto) Sodium 136 L Potassium 4.3 Chloride 101 Carbon Dioxide 29 BUN 15 Creatinine 0.70 Estimated GFR > 60.0 BUN/Creatinine Ratio 21.4 Glucose 170 H Calcium 7.8 L Phosphorus 2.5 Magnesium 1.3 L Total Bilirubin 0.2 AST 26 ALT 28 Alkaline Phosphatase 51 Total Protein 4.9 L Albumin 2.3 L Globulin 2.6 Albumin/Globulin Ratio 0.9 L Blood Type Antibody Screen Hemoglobin is actually elevated since surgery. Her white blood cell count is also elevated which is not unanticipated. Electrolytes and creatinine are normal. Assessment & Plan Plan: Assessment/Plan Narrative: 53-year-old female status post extensive laparotomy with incomplete lysis of adhesions for significant bowel obstruction which has been recurrent. Her analgesia is not yet optimal. I will discuss this with anesthesia today. In the interim continue TPN and normal saline infusion. We will give her a 1 L normal saline bolus currently. We may need to decrease the Ativan somewhat given her somnolence. Have physical therapy mobilize the patient to a bedside chair today. I emphasized this with her today. Repeat laboratory studies tomorrow. I suspect she is still somewhat relatively volume depleted. I discussed the operative findings again with her family. Plan at this time would be to continue G-tube decompression and TPN support. Questions were answered to their satisfaction. Orders written.
--- NOTE | 2018-06-14 10:33 | PT.IIE ---
Current Diagnoses Intestinal adhesions [bands], unspecified as to partial versus complete obstruction (06/08/18) Surgery Performed Operation Date: 06/13/18 13:15 Actual Procedures p Exploratory Laparotomy, LYSIS OF ADHESIONS, Placement of gastrostomy tube(Not Applicable) - Tate Levy MD Surgical History (Last Reviewed 06/08/18 @ 20:43 by Tate Levy MD) Status post exploratory laparotomy (Acute) Status post appendectomy (Resolved) Status post hysterectomy (Resolved) Medical History (Last Reviewed 06/08/18 @ 20:43 by Tate Levy MD) Anxiety disorder (Acute) Morbid obesity with BMI of 45.0-49.9, adult (Acute) Small bowel obstruction due to adhesions (Acute) HTN (hypertension) (Chronic) Migraine (Chronic) Postoperative ileus (Resolved) Physical Therapy Inpatient Evaluation/Re-Eval M1 PT/OT-IP Prior Functional Status Start: 06/14/18 10:27 Freq: NEEDED Status: Active Protocol: Document 06/14/18 10:27 [facility] (Rec: 06/14/18 10:33 [facility] [id number]) Medical Review Prior Functional Status Medical History Reviewed Yes Diet/Fluid Consistency Regular Communication WNL Mobility and Gait Indep without AD Activities of Daily Living and IADL's Indep Social History Household Members significant other family Living Arrangements House Number of Floors (Floors) Two Floors Number of Stairs To Enter/Railing? 4 LANIE with rail Home Environment Standard Height Toilet Tub/Shower Home Equipment Shower Seat without Backrest M2 PT-IP Current Condition Start: 06/14/18 10:27 Freq: NEEDED Status: Active Protocol: Document 06/14/18 10:27 [facility] (Rec: 06/14/18 10:33 [facility] [id number]) Physical Therapy Current Condition Current Condition Evaluation Date 04/26/18 Treatment Diagnosis s/p exploratory laporotomy, weakness Precautions Abdominal Surgery Precautions Log Roll Lifting Restrictions Gait Belt above Incisional Area Weight Bearing Status Weight Bearing Status Full Weight Bearing M3 PT-IP Subjective Start: 06/14/18 10:27 Freq: NEEDED Status: Active Protocol: Document 06/14/18 10:27 [facility] (Rec: 06/14/18 10:33 [facility] [id number]) Subjective Physical Therapy Visit Type Type Initial Evaluation Visit Start Time 10:00 Visit Stop Time 10:25 Total Visit Minutes 25 Number of BULL CHAIN OPERATOR Visits 0 Physical Therapy Visit Comments Patient Comments Agreeable to get up Patient Goals Pt reports her boyfriend is able to help her at home Therapy Pain Assessment Pain Present Pain Present Pain Reported M4 PT-IP Mobility and Gait Start: 06/14/18 10:27 Freq: NEEDED Status: Active Protocol: Document 06/14/18 10:27 [facility] (Rec: 06/14/18 10:33 [facility] [id number]) PT-Bed Mobility Assessment Rolling Type of Rolling Roll to Left Level of Assist Minimal Assistance Supine to Sit Supine to Sit Minimal Assistance Head of Bed Elevated Bedrails Sit to Supine Sit to Supine Minimal Assistance Bedrails Scooting Scooting to Edge of Bed Contact Guard Assistance PT-Transfer Assessment Sit to and From Stand Sit to and from Stand Minimal Assistance Use of Upper Extremities Equipment Transfer Assistive Device Gait Belt Orthotic/Prosthetic Devices or Brace: No Comments Mobility Comments Pt stood and took 3 steps to L with min A to set up higher in bed before laying down. supine BP 97/61 and seated 89/ 46 PT-Balance Assessment Sitting Balance and Reactions Static Sitting Balance Ability Fair Dynamic Sitting Balance Ability Fair Standing Balance and Reactions Static Standing Balance Ability Poor Dynamic Standing Balance Ability Poor M5 PT-IP Objective Assessments Start: 06/14/18 10:27 Freq: NEEDED Status: Active Protocol: Document 06/14/18 10:27 [facility] (Rec: 06/14/18 10:33 [facility] [id number]) Orientation Orientation/Cognition Level of Alertness Lethargic Strength Lower Extremity Strength Assessment Bilaterally Impaired M7 PT-IP Assessment and Plan Start: 06/14/18 10:27 Freq: NEEDED Status: Active Protocol: Document 06/14/18 10:27 [facility] (Rec: 06/14/18 10:33 [facility] [id number]) PT Summary Assessment and Plan Potential Rehabilitation Potential Good Status of Condition at Evaluation Unstable Summary Impairments Pain Strength Balance Bed Mobility Transfers Gait Assessment Summary Pt is s/p exploratory laporotomy. She currently has an epidural and is very lethargic. She is requiring assist at this time but is likely to improve with cont PT and cont improvement of her medical status & pain. Goals Bed Mobility Goal Independent Transfer Goal Independent Gait Goal Standby Assistance Gait Distance 200ft w/least restrictive device Other Goals up/down flight of stairs with 1 rail SBA Days to Meet Goals 6 Frequency of Treatment Frequency Of Treatment Twice a Day Treatment Plan Physical Therapy Treatment Plan Bed Mobility Training Transfer Training Gait Training Therapeutic Exercise Balance Retraining Post Op Education Discharge Planning Other Recommendations and Next Treatment Attempt transfer if pt able, Focus cont to work on ability to sit EOB without back support Recommendations To Nursing Amount of Assist Needed 1 Person Assist Discharge Recommendations PT Discharge Recommendations Home with Assistance Home Health Outpatient PT Equipment Needed for Home Before depends on progress Discharge
[2018-06-14] MEDS: EPI EPIDURAL (11:24)
[2018-06-14] MEDS: FENT EPIDURAL (11:24)
[2018-06-14] MEDS: [UNRECOGNIZED DRUG - OTHER] EPIDURAL (11:24)
--- NOTE | 2018-06-14 14:09 | PC.NURSE ---
Difficult to assess dermatomes as pt is very drowsy today. Pt c/o cramping, lower abd pain and is able to move both legs. Rates pain high 6-9/10 but quickly goes back to sleep. Initially, declined OOB and working with PT other than sitting up to EOB. At about 1300, pt was able to sit up with 1PA to EOB and [id number] to chair. Pt stayed up for about an hour before requesting back to bed. Pt has had low UOP, BPs. Rec'd a 1L NS Bolus this AM without any change in UOP or BP. Page out to Dr. Levy. Awaiting return call.
--- NOTE | 2018-06-14 15:25 | PT.IPNOTE ---
Nursing requsested hold on PT for this afternoon secondary to low blood pressure
--- NOTE | 2018-06-14 15:39 | CM.DPC ---
DCP/cont Patient was unable to be followed up in person as patient was unable to stay awake and engage. Chart review reports patient will continue G-tube decompression and TPN. PT eval reports possible heed for HH vs OP PT. Plan: Continue to follow as patient progresses to see if patient will meet criteria for HH.
[2018-06-14] MEDS: SODIUM CHLORIDE 0.9% 500 ML 1000 ML IV ×2 (15:48→15:49)
--- NOTE | 2018-06-14 16:40 | PC.NURSE ---
Addendum entered by Misa Davis R.N. 06/14/18 22:22: 2200 -Pt has been less restless following addition of DEPUTY TREASURER, sleeping for longer periods of time. However while awake pt continues to report uncontrolled pain. DEPUTY TREASURER cleared for 2.4 mg. Bupivicaine epidural infusing at 8 mls/hr. Chaparro with 250cc out this shift. Hr <100 and BP 144/72. Peg tube with only scant drainage. NGT around 600cc for the shift. taking occasional ice chips. O2 2l, sat 97%, Continue to encourage deep breath however pt reluctant r/t pain. Refusing SCD's. Supportive at bedside. Call light in reach. Bed alarm on. Original Note: Addendum entered by Misa Davis R.N. 06/14/18 17:37: 1715 - Dr. Germain, anesthesia notified that pain was not controlled. Pt reporting pain 8 of 10, moaning and restless, stating can you just give me something to make me sleep? Discussed pain control options. Review Vital signs and urine output. Orders obtained. Original Note: 1530 - Dr. Levy in to round on pt. Discussed dayshift I and o with JUNIOR Lyons. Verbal order to increase 500cc bolus to 1000cc. Total fluid infusing at 200cc/hr. Epidural gtt had been titrated down to 8ml/hr. Pt currently reports pain 4 of 10. Lab to draw, verbal from to add lactate. Pt drowsy, however answers questions appropriately. Warm blanket and ice chips provided. Call light in reach.
--- NOTE | 2018-06-14 16:44 | PC.NURSE ---
1630- Patient noted to have intermitted AFib/RVR with rates up to 150. These are non-sustained. Will monitor.
[2018-06-14 16:56] LABS: Lactate (Lactic Acid) 1.7 mmol/L (0.7-2.1)
[2018-06-14] MEDS: LYTES IV (18:13)
[2018-06-14] MEDS: CALCIUM IV (18:13)
[2018-06-14] MEDS: DEXT IV (18:13)
[2018-06-14] MEDS: POTASSIUM CHLORIDE IV (18:13)
[2018-06-14] MEDS: [UNRECOGNIZED DRUG - OTHER] IV (18:13)
[2018-06-14] MEDS: BUPIVACAINE 0.5% (PF) 25 ML in SODIUM CHLORIDE 0.9% 75 ML 8 ML EPIDURAL (18:14)
[2018-06-14] MEDS: SODIUM CHLORIDE 0.9% 1,000 ML 136 ML IV (20:42)
[2018-06-14] MEDS: HYDROMORPHONE PCA 6 MG/30 ML PCA.VIAL IV (22:14)
[2018-06-15] VITALS (19 sets, daily range): BP systolic 126–175; BP diastolic 69–94; PULSE 93–107; RESP 15–20; TEMP 36.3–36.9; O2SAT 92–98
[2018-06-15] MEDS: SODIUM CHLORIDE 0.9% 1,000 ML 136 ML IV (03:55)
[2018-06-15 05:21] LABS: Add Manual Diff / Slide Review NO; Basophils Percent Auto 0.2 % (0-2); Eosinophils Percent Auto 0.2 % (2-4); Hematocrit 31.9 % (36-46); Hemoglobin 10.4 g/dL (12.0-16.0); Lymphocytes Percent Auto 7.2 % (25-40); Mean Corpuscular HGB Conc 32.7 % (30-36); Mean Corpuscular Hemoglobin 28.9 PG (26-34); Mean Corpuscular Volume 88.5 fL (80-100); Monocytes Percent Auto 5.6 % (3-14); Neutrophils Absolute Auto 18000 /uL (1500-7000); Neutrophils Percent Auto 86.8 % (50-75); Platelet Count 271 X10^3/uL (150-400); Red Cell Distribution Width 15.5 % (11.6-14.8); White Blood Cell Count 20.7 X10^3/uL (4.5-11.0)
[2018-06-15 05:22] LABS: Lactate (Lactic Acid) 0.9 mmol/L (0.7-2.1)
[2018-06-15 05:23] LABS: Alanine Aminotransferase 22 IU/L (9-52); Albumin 2.2 g/dL (3.5-5.0); Albumin Globulin Ratio 0.8 (1.0-2.8); Alkaline Phosphatase 61 U/L (38-126); Aspartate Aminotransferase 22 IU/L (14-36); BUN Creatinine Ratio 41.7 (6-22); Bilirubin Total 0.2 mg/dL (0.2-1.3); Blood Urea Nitrogen 25 mg/dL (7-17); Calcium 7.6 mg/dL (8.4-10.2); Carbon Dioxide 27 mmol/L (22-32); Chloride 105 mmol/L (98-107); Estimated Glomerular Filt Rate > 60.0 mL/min (>60); Globulin 2.8 g/dL (1.7-4.1); Glucose 149 mg/dL (70-100); HEMOLYSIS < 15 (0-50); Magnesium 2.2 mg/dL (1.6-2.3); Potassium 4.5 mmol/L (3.4-5.1); Sodium 138 mmol/L (137-145)
[2018-06-15] MEDS: CEFOTETAN 2 GM/50 ML PIGGYBACK IV ×2 (05:27→17:52)
[2018-06-15] MEDS: BUPIVACAINE 0.5% (PF) 25 ML in SODIUM CHLORIDE 0.9% 75 ML 8 ML EPIDURAL ×3 (05:47→19:03)
--- NOTE | 2018-06-15 05:54 | PC.NURSE ---
Cleared 2.8 mg in Dilaudid STITCHING MACHINE OPERATOR.
[2018-06-15] MEDS: INSULIN ASPART 100 UNIT/ML INSULN PEN SUBCUT (06:14)
--- NOTE | 2018-06-15 06:18 | PC.NURSE ---
Pt's. pain so far has been adequately controlled with Bupicaine infusing at 8ml/hr along with Dilaudid CARPENTER/LABOR. Pt. used 2.8 mg of the Dilaudid CARPENTER/LABOR. Pt's. pain rate is 3-4/10. Pt. denies numbness and tingling, is able to raise lower extremities. Pt. is afebrile, lungs however has crackles to left mid lung down to bases and rest of the lung beckman are diminished, encouraged pt. to use IS and only able to pull it as high as 500 ml. SBP range bet. 138-175, SBP 72-94, HR mostly in the 90's. BT's is absent, NGT with 75 ml brown odiferous liquid, and 5 ml. on the Peg tube, Chaparro with clear dark paola UO of 300 ml. Continue with treatment and close monitoring.
--- NOTE | 2018-06-15 07:27 | P.PN_ITS ---
Subjective Date Patient Seen: 06/15/18 Time Patient Seen: 07:18 Interval history: Patient complaining of thirst and wishing to have something to drink. Otherwise her pain is currently controlled relatively well with SENIOR SITE MANAGER in addition to the epidural catheter. Relatively quiet night overall. Urine output is beginning to increase. Patient denies any chest pain or shortness of breath although her respiratory effort is somewhat minimal. She is little more alert this morning but still feels somewhat somnolent and wishes to rest. Had some difficulty getting out of bed yesterday even with physical therapy. Exam Vital Signs (past 8 hours): - 06/15/18 00:30 06/15/18 00:31 06/15/18 01:00 Temperature 97.9 F Pulse Rate 99 H 95 H Respiratory Rate 20 20 Blood Pressure 162/89 H 146/73 H Pulse Oximetry 97 98 96 06/15/18 02:02 06/15/18 03:05 06/15/18 04:00 Temperature 98.2 F Pulse Rate 96 H 97 H 96 H Respiratory Rate 20 20 19 Blood Pressure 154/81 H 175/94 H 159/92 H Pulse Oximetry 96 96 94 06/15/18 05:03 06/15/18 06:00 Temperature 98.1 F Pulse Rate 100 H 99 H Respiratory Rate 19 18 Blood Pressure 154/89 H 154/89 H Pulse Oximetry 96 96 Oxygen Delivery Method Nasal Cannula Oxygen Flow Rate 2 Narrative Exam Narrative: No fevers since surgery. Intermittently tachycardic but currently with heart rate in the 90s with sinus rhythm. She is approximately 4-5 L positive on her fluid balance since surgery which is not unanticipated. Urine output overnight was 300 cc. Urine remains clear in the Chaparro bag. She has had nearly 1.5 L of feculent material out of her nasogastric tube and gastrostomy tube combined. Ice chip intake has been minimal. Saturations are approximately 94% on 2 L nasal cannula oxygen. She has relatively poor inspiratory effort. Breath sounds are diminished bilaterally. No wheezes. Abdomen is soft but mildly distended. Her incision is clean and completely intact. No drainage. Minimal erythema at the umbilicus but no evidence of cellulitis. G-tube site is clean. She is appropriately tender to palpation without guarding or rebound although her pain level is somewhat difficult to assess. Extremities show no clubbing or cyanosis. Trace edema bilateral ankles. Objective Labs Result Diagrams: 06/15/18 04:43 06/15/18 04:43 Labs: Laboratory Results - last 24 hr 06/14/18 06/14/18 06/15/18 15:38 15:38 04:43 WBC 20.7 H RBC 3.60 L Hgb 11.0 L 10.4 L Hct 34.0 L 31.9 L MCV 88.5 MCH 28.9 MCHC 32.7 RDW 15.5 H Plt Count 271 Neut % (Auto) 86.8 H Lymph % (Auto) 7.2 L [place] % (Auto) 5.6 Eos % (Auto) 0.2 L Baso % (Auto) 0.2 Neut # (Auto) 31083 H Sodium Potassium Chloride Carbon Dioxide BUN Creatinine Estimated GFR BUN/Creatinine Ratio Glucose Lactate 1.7 Calcium Magnesium Total Bilirubin AST ALT Alkaline Phosphatase Total Protein Albumin Globulin Albumin/Globulin Ratio 06/15/18 06/15/18 04:43 04:43 WBC RBC Hgb Hct MCV MCH MCHC RDW Plt Count Neut % (Auto) Lymph % (Auto) [place] % (Auto) Eos % (Auto) Baso % (Auto) Neut # (Auto) Sodium 138 Potassium 4.5 Chloride 105 Carbon Dioxide 27 BUN 25 H Creatinine 0.60 Estimated GFR > 60.0 BUN/Creatinine Ratio 41.7 H Glucose 149 H Lactate 0.9 Calcium 7.6 L Magnesium 2.2 Total Bilirubin 0.2 AST 22 ALT 22 Alkaline Phosphatase 61 Total Protein 5.0 L Albumin 2.2 L Globulin 2.8 Albumin/Globulin Ratio 0.8 L Electrolytes are normal. Renal function remained stable within normal limits. Glucose is mildly elevated on TPN. Protein levels including albumin are quite low consistent with her poor nutrition postoperatively. Hemoglobin stable at 10.4. White blood cell count remains elevated which may simply be inflammatory response to the trauma of the operation. Lactate level has improved and remains well within normal limits. No evidence of sepsis. No new radiographic studies for review Assessment & Plan Plan: Assessment/Plan Narrative: 53-year-old female postoperative day 2 from repeat laparotomy with lysis of adhesions for recurrent persistent high-grade bowel obstruction. Her bowel obstruction cannot be completely relieved at the time of surgery due to the density of her adhesions and the hostile environment of her abdomen. She continues to have relatively high gastric output which is not unanticipated. She is draining effectively through both the nasogastric tube and a gastrostomy tube so I will leave these both in place for now. Once the output is somewhat diminished or at least less feculent will remove the nasogastric tube. Continue NPO status except for ice chips. Per dietary evaluation she requires custom TPN which has been ordered today. She has severe protein calorie malnutrition with associated weight loss due to prolonged postoperative recovery complicated by recurrent bowel obstruction. I suspect she will need long-term TPN. In fact, she may even require placement of an indwelling central venous catheter such as a port device prior to discharge for long-term TPN. Continue to monitor the anemia. No indication for blood transfusion currently. We will slow her IV fluids down slowly with total rate today approximately 150 cc/hour. Continue to monitor the urine output. Continue Chaparro. Anesthesiology will likely wean and then discontinue the epidural catheter later today or by tomorrow morning per protocol. Continue SENIOR SITE MANAGER. She may need this adjusted after the epidural was removed. She remains on DVT prophylaxis with Lovenox and sequential compression devices. She has no evidence of sepsis but we will continue the cefotetan. Add Diflucan and given the enterotomy with high-grade bowel obstruction at the time of surgery. Although spillage was relatively minimal I remain concerned about her leukocytosis. Nonetheless she clearly requires more aggressive pulmonary toilet and mobilization. I emphasized this to her today. Will have her out of bed most of the day if possible. Continue physical therapy. Repeat laboratory studies tomorrow. All the above discussed with the patient in detail. Questions were answered to her satisfaction. Case reviewed with the attending nurse this morning. Orders written.
[2018-06-15] MEDS: FLUCONAZOLE 400 MG/200 ML PIGGYBACK 100 MG IV (07:59)
[2018-06-15] MEDS: PANTOPRAZOLE 40 MG VIAL IV (08:01)
[2018-06-15] MEDS: ENOXAPARIN 40 MG/0.4 ML SYRINGE SUBCUT (08:01)
--- NOTE | 2018-06-15 10:59 | PC.NURSE ---
Pt continues to have abdominal pain and using the SPORTING GOODS SALES MANAGER when able to. Does not seem to have analgesic affect from epidural - reports no change in sensation in abdominal region. Assisted to chair slowly - at first she had hypotension, then mild nausea without emesis. Soon was able to feel more comfortable and reported increased comfort on sitting in the reclining position in the chair. No drainage observed in bag draining from PEG site (to gravity drainage only). N/G tube has small amt of brownish/green drainage mixed with fluid from ice chips. Bowel tones hypoactive and distant, denies passing flatus. Overall reports feeling improved from yesterday and was encouraged by her progress in sitting in chair. Needs encouragement to use IS, trialled on room air but O2 sats around 89%. O2 replaced at 2L via nasal cannula, with sats now at 93%.
--- NOTE | 2018-06-15 11:41 | PT.IPTN ---
Current Diagnoses Intestinal adhesions [bands], unspecified as to partial versus complete obstruction (06/08/18) Surgery Performed Operation Date: 06/13/18 13:15 Actual Procedures p Exploratory Laparotomy, LYSIS OF ADHESIONS, Placement of gastrostomy tube(Not Applicable) - Tate Levy MD Physical Therapy Treatment Note M2 PT-IP Current Condition Start: 06/14/18 10:27 Freq: NEEDED Status: Active Protocol: Document 06/14/18 10:27 [facility] (Rec: 06/14/18 10:33 [facility] [id number]) Physical Therapy Current Condition Current Condition Evaluation Date 04/26/18 Treatment Diagnosis s/p exploratory laporotomy, weakness Precautions Abdominal Surgery Precautions Log Roll Lifting Restrictions Gait Belt above Incisional Area Weight Bearing Status Weight Bearing Status Full Weight Bearing M3 PT-IP Subjective Start: 06/14/18 10:27 Freq: NEEDED Status: Active Protocol: Document 06/15/18 11:22 [facility] (Rec: 06/15/18 11:41 [id number]) Subjective Physical Therapy Visit Type Type Treatment Note Visit Start Time 10:30 Visit Stop Time 10:50 Total Visit Minutes 20 Notes BP up to 127/72. Pt up in chair with Nursing, finishing hygiene. Physical Therapy Visit Comments Patient Comments Agreeable to work with PT but reports feeling very tired. Therapy Pain Assessment Pain When Pain Assessed At Rest Pain Present Pain Present Pain Reported Location Bilateral Lower Abdomen Intensity 5 Scale Used Numeric (1 - 10) Pain Management Techniques Modification of Treatment Re-positioning Timing of Activity with Medications M4 PT-IP Mobility and Gait Start: 06/14/18 10:27 Freq: NEEDED Status: Active Protocol: Document 06/15/18 11:22 [facility] (Rec: 06/15/18 11:41 [id number]) PT-Bed Mobility Assessment Scooting Scooting to Edge of Bed Contact Guard Assistance Scooting Up and Down in Bed Contact Guard Assistance PT-Transfer Assessment Sit to and From Stand Sit to and from Stand Minimal Assistance Use of Upper Extremities Equipment Transfer Assistive Device Gait Belt Orthotic/Prosthetic Devices or Brace: No Transfer Ability Level of Assist Moderate Assistance Comments Mobility Comments Pt completed sit to stand from chair with Min A, pt able to scoot forward/backward in chair with CGA. Min A for transfer but increased assist to manage lines. Pt fatigues rapidly. Gait Assessment Comments Gait Comments Unable at this time. M5 PT-IP Objective Assessments Start: 06/14/18 10:27 Freq: NEEDED Status: Active Protocol: Document 06/14/18 10:27 [facility] (Rec: 06/14/18 10:33 [facility] [id number]) Orientation Orientation/Cognition Level of Alertness Lethargic Strength Lower Extremity Strength Assessment Bilaterally Impaired M6 PT-IP Treatment Start: 06/14/18 10:27 Freq: NEEDED Status: Active Protocol: Document 06/15/18 11:22 [facility] (Rec: 06/15/18 11:41 [id number]) Physical Therapy Treatment Exercises Exercises Ankle Pumps Quad Sets Heel Slides Seated Knee Flexion/Extension Education Education Provided Precautions Safety Other Treatments Other Treatment Performed Review of Log roll technique with pateint. M7 PT-IP Assessment and Plan Start: 06/14/18 10:27 Freq: NEEDED Status: Active Protocol: Document 06/15/18 11:22 [facility] (Rec: 06/15/18 11:41 [id number]) PT Summary Assessment and Plan Summary Assessment Summary Pt tired and lethargic after sponge bath and getting up into chair, completed gentle LE exercises and was able to get comfortable in chair with pillows and positioning. Pt left up in chair with call light and ice chips. Frequency of Treatment Frequency Of Treatment Twice a Day Treatment Plan Other Recommendations and Next Treatment Continue to work on transfers Focus and OOB activity. Recommendations To Nursing Amount of Assist Needed 1 Person Assist Discharge Recommendations PT Discharge Recommendations Home with Assistance Home Health Outpatient PT
--- NOTE | 2018-06-15 14:51 | PT.IPTN ---
Current Diagnoses Intestinal adhesions [bands], unspecified as to partial versus complete obstruction (06/08/18) Surgery Performed Operation Date: 06/13/18 13:15 Actual Procedures p Exploratory Laparotomy, LYSIS OF ADHESIONS, Placement of gastrostomy tube(Not Applicable) - Tate Levy MD Physical Therapy Treatment Note M2 PT-IP Current Condition Start: 06/14/18 10:27 Freq: NEEDED Status: Active Protocol: Document 06/14/18 10:27 [facility] (Rec: 06/14/18 10:33 [facility] [id number]) Physical Therapy Current Condition Current Condition Evaluation Date 04/26/18 Treatment Diagnosis s/p exploratory laporotomy, weakness Precautions Abdominal Surgery Precautions Log Roll Lifting Restrictions Gait Belt above Incisional Area Weight Bearing Status Weight Bearing Status Full Weight Bearing M3 PT-IP Subjective Start: 06/14/18 10:27 Freq: NEEDED Status: Active Protocol: Document 06/15/18 14:35 [facility] (Rec: 06/15/18 14:51 SA [id number]) Subjective Physical Therapy Visit Type Type Treatment Note Visit Start Time 13:05 Visit Stop Time 13:30 Total Visit Minutes 25 Notes BP 132/80, HR 100 and 02 95% at start of session. Number of ASSISTANT TO THE DIRECTOR Visits 2 Physical Therapy Visit Comments Patient Comments Pt seated up in chair and wanting to get back to bed. Pt up in chair about 2.5 hours. Therapy Pain Assessment Pain When Pain Assessed At Rest Pain Present Pain Present Pain Reported Location Bilateral Lower Abdomen Intensity 5 Scale Used Numeric (1 - 10) Pain Management Techniques Modification of Treatment Re-positioning Timing of Activity with Medications M4 PT-IP Mobility and Gait Start: 06/14/18 10:27 Freq: NEEDED Status: Active Protocol: Document 06/15/18 14:35 [facility] (Rec: 06/15/18 14:51 SA [id number]) PT-Bed Mobility Assessment Sit to Supine Sit to Supine Minimal Assistance Bedrails Scooting Scooting to Edge of Bed Contact Guard Assistance Scooting Up and Down in Bed Contact Guard Assistance PT-Transfer Assessment Sit to and From Stand Sit to and from Stand Contact Guard Assistance Equipment Transfer Assistive Device Gait Belt Front Wheeled Walker Orthotic/Prosthetic Devices or Brace: No Transfers Transfer Destination Bed Transfer Technique Stand Step Pivot Transfer Ability Level of Assist Minimal Assistance 2 Person Assistance Comments Mobility Comments Stand pivot tx with CGA-Min A with pateint and 2nd person to manage lines. Pt took about 3 steps with no LOB. Fatigues rapidly. Gait Assessment Comments Gait Comments 3 steps with transfer. PT-Balance Assessment Standing Balance and Reactions Static Standing Balance Ability Fair Dynamic Standing Balance Ability Fair Device Used FWW M5 PT-IP Objective Assessments Start: 06/14/18 10:27 Freq: NEEDED Status: Active Protocol: Document 06/14/18 10:27 [facility] (Rec: 06/14/18 10:33 [facility] [id number]) Orientation Orientation/Cognition Level of Alertness Lethargic Strength Lower Extremity Strength Assessment Bilaterally Impaired M6 PT-IP Treatment Start: 06/14/18 10:27 Freq: NEEDED Status: Active Protocol: Document 06/15/18 14:35 [facility] (Rec: 06/15/18 14:51 SA [id number]) Physical Therapy Treatment Exercises Exercises Ankle Pumps Quad Sets Heel Slides Seated Knee Flexion/Extension Education Education Provided Precautions Safety M7 PT-IP Assessment and Plan Start: 06/14/18 10:27 Freq: NEEDED Status: Active Protocol: Document 06/15/18 14:35 [facility] (Rec: 06/15/18 14:51 SA [id number]) PT Summary Assessment and Plan Summary Assessment Summary Pt with poor activity tolerance and rapid fatigue. Improved transfer ability this PM vs AM. Frequency of Treatment Frequency Of Treatment Twice a Day Treatment Plan Other Recommendations and Next Treatment Pt up in chair x 2.5 hrs this Focus afternoon with good tolerance but very fatigued after getting back to bed. Recommendations To Nursing Amount of Assist Needed 1 Person Assist 2 Person Assist Discharge Recommendations PT Discharge Recommendations Home with Assistance Home Health Outpatient PT Equipment Needed for Home Before 2nd person to manage lines Discharge during mobility for Nursing staff
[2018-06-15] MEDS: SODIUM CHLORIDE 0.9% 1,000 ML 80 ML IV (16:25)
[2018-06-15] MEDS: BENZOCAINE/MENTHOL 1 LOZ PKT 1 EACH PO (16:25)
--- NOTE | 2018-06-15 16:55 | PC.NURSE ---
1600 - Pt awake and alert, engaging in conversation. Reports continued abd pain. Encouraged FILLING TECHNICIAN use. Able to turn and reposition for assessment. Discussed increased activity. Pt reports being up in the chair for 2.5 hours today. C/O fatigue. You wouldn't think sitting in a chair would make you so tired. Able to return demo on I.S. today, 10 breaths to a volume of 1000. Drsg to epidural site slightly rolled at distal end however site and tubing remain completely covered, Bupivicaine infusing at 8ml/hr. Site wnl. Abd boyd GASKET MAKER, mild erythema at staple sites, free from drainage. Peg tube insertion site wnl. NGT draining brown liquid, pt taking occasional ice chips. PICC line drsg CDI. Call light in reach.
[2018-06-15] MEDS: CALCIUM IV (17:48)
[2018-06-15] MEDS: LYTES IV (17:48)
[2018-06-15] MEDS: DEXT IV (17:48)
[2018-06-15] MEDS: POTASSIUM CHLORIDE IV (17:48)
[2018-06-15] MEDS: [UNRECOGNIZED DRUG - OTHER] IV (17:48)
[2018-06-15] MEDS: FAT EMULSIONS 50 GM/250 ML EMULSION IV (17:48)
[2018-06-15] MEDS: HYDROMORPHONE PCA 6 MG/30 ML PCA.VIAL IV (22:01)
[2018-06-16] VITALS (13 sets, daily range): BP systolic 131–176; BP diastolic 63–92; PULSE 93–109; RESP 16–20; TEMP 36.6–37.8; O2SAT 91–100
[2018-06-16] MEDS: LORazepam 2 MG/ML SYRINGE 1 MG IV ×4 (00:12→18:17)
[2018-06-16 05:07] LABS: Add Manual Diff / Slide Review NO; Basophils Percent Auto 0.3 % (0-2); Eosinophils Percent Auto 1.6 % (2-4); Hematocrit 28.6 % (36-46); Hemoglobin 9.2 g/dL (12.0-16.0); Lymphocytes Percent Auto 9.9 % (25-40); Mean Corpuscular HGB Conc 32.1 % (30-36); Mean Corpuscular Hemoglobin 28.4 PG (26-34); Mean Corpuscular Volume 88.6 fL (80-100); Monocytes Percent Auto 7.4 % (3-14); Neutrophils Absolute Auto 10300 /uL (1500-7000); Neutrophils Percent Auto 80.8 % (50-75); Platelet Count 239 X10^3/uL (150-400); Red Blood Cell Count 3.23 X10^6/uL (4.0-5.2); Red Cell Distribution Width 14.9 % (11.6-14.8); White Blood Cell Count 12.7 X10^3/uL (4.5-11.0)
[2018-06-16 05:09] LABS: Lactate (Lactic Acid) 0.9 mmol/L (0.7-2.1)
[2018-06-16 05:10] LABS: BUN Creatinine Ratio 28.3 (6-22); Blood Urea Nitrogen 17 mg/dL (7-17); Carbon Dioxide 27 mmol/L (22-32); Chloride 103 mmol/L (98-107); Estimated Glomerular Filt Rate > 60.0 mL/min (>60); Glucose 112 mg/dL (70-100); HEMOLYSIS < 15 (0-50); Magnesium 1.9 mg/dL (1.6-2.3); Phosphorous 3.7 mg/dL (2.5-4.5); Potassium 4.6 mmol/L (3.4-5.1); Sodium 136 mmol/L (137-145)
[2018-06-16] MEDS: SODIUM CHLORIDE 0.9% 1,000 ML 80 ML IV (05:19)
[2018-06-16] MEDS: CEFOTETAN 2 GM/50 ML PIGGYBACK IV ×2 (05:21→18:04)
[2018-06-16] MEDS: HYDROMORPHONE PCA 6 MG/30 ML PCA.VIAL IV ×3 (06:13→21:43)
--- NOTE | 2018-06-16 07:36 | PC.NURSE ---
Patient remains on epidural gtt of bupivicaine with Dilaudid UNIT CONTROL CLERK, used 2.8mg, IV Ativan given per request and prn orders for sleep and anxiety. No output from peg tube, 350ml bile output from NGT, bowel sounds absent.
[2018-06-16] MEDS: FLUCONAZOLE 400 MG/200 ML PIGGYBACK 100 MG IV (09:03)
[2018-06-16] MEDS: PANTOPRAZOLE 40 MG VIAL IV (09:03)
--- NOTE | 2018-06-16 10:18 | PM.PN.1 ---
Subjective Date Patient Seen: 06/16/18 Time Patient Seen: 08:28 Interval history: Patient's pain is controlled with the DIRECTOR OF CUSTOMER ACQUISITION. Denies chest pain or shortness of breath but states that it is somewhat difficult to inspire deeply due to abdominal pain. She has been out of bed yesterday. Had a relatively quiet night last night. No subjective fever or chills. No nausea or vomiting. Remains thirsty and wishes to drink. No flatus or bowel movement. Chaparro catheter remains in place. Epidural catheter is being weaned off per Anesthesiology today. Exam Vital Signs (past 8 hours): - 06/16/18 04:12 06/16/18 07:25 Temperature 100.0 F H 98.1 F Pulse Rate 96 H 93 H Respiratory Rate 20 16 Blood Pressure 141/74 H 131/69 Pulse Oximetry 96 96 Oxygen Delivery Method Nasal Cannula Oxygen Flow Rate 2 Narrative Exam Narrative: Moderately obese female lying in bed in no acute distress. She is more alert and converses normally this morning. Oriented x3 Maximum temperature 100.0? earlier this morning. Currently 98.1. No tachycardia however Blood pressure normal. Urine output remains adequate following fluid resuscitation over the last 24 hr. Nasogastric tube output is diminishing but remains quite bilious. No more feculent character to the fluid however. Gastrostomy tube output is diminishing but the tube appears to be kinked at the skin level this morning. I corrected this. Chest is clear but she does have expiratory wheezes. Her breath sounds are significantly diminished in bilateral bases. Regular rate and rhythm. No murmurs. Abdomen remains mildly distended but slightly less today. She is not particularly tympanitic. She is appropriately tender to palpation without involuntary guarding or rebound tenderness. Wound is clean, dry, and intact without significant erythema, ecchymoses, hematoma, seroma, or drainage. Extremities show no clubbing or cyanosis. Trace bilateral ankle edema. She moves all extremities symmetrically. Objective Labs Result Diagrams: 06/16/18 04:49 06/16/18 04:49 Labs: Laboratory Results - last 24 hr 06/16/18 06/16/18 06/16/18 04:49 04:49 04:49 WBC 12.7 H RBC 3.23 L Hgb 9.2 L Hct 28.6 L MCV 88.6 MCH 28.4 MCHC 32.1 RDW 14.9 H Plt Count 239 Neut % (Auto) 80.8 H Lymph % (Auto) 9.9 L [place] % (Auto) 7.4 Eos % (Auto) 1.6 L Baso % (Auto) 0.3 Neut # (Auto) 48299 H Sodium 136 L Potassium 4.6 Chloride 103 Carbon Dioxide 27 BUN 17 Creatinine 0.60 Estimated GFR > 60.0 BUN/Creatinine Ratio 28.3 H Glucose 112 H Lactate 0.9 Calcium 8.0 L Phosphorus 3.7 D Magnesium 1.9 Assessment & Plan Plan: Assessment/Plan Narrative: 53-year-old female postoperative day 3 from laparotomy with extensive lysis of adhesions an incomplete relief of high-grade bowel obstruction due to significant hostile adhesions who is slowly improving. No evidence of infectious complications although I am concerned about her pulmonary status. We will slow her fluid intake intravenously. Allow her to continue to diurese spontaneously. I emphasized once again and aggressive pulmonary toilet. We will remove the epidural catheter today but continue the Chaparro catheter. She needs to be out of bed as much as possible today with cough, deep breathing, and incentive spirometry. I will continue the nasogastric tube currently until the gastrostomy tube shows that it is draining adequately, especially since the patient had refused the NG tube throughout her initial phases of admission recently. Once removed I doubt she will allow me to reinserted even if indicated. Continue cefotetan and Diflucan. Continue TPN at current formula with the addition of lipids. Her electrolytes and blood glucose levels are well controlled. She remains on appropriate ulcer and DVT prophylaxis. I discussed all the above with her in detail. Questions were answered to her satisfaction, and she voiced understanding. Orders were written.
--- NOTE | 2018-06-16 10:50 | CM.DPNOTE ---
Reviewed chart. Dr Levy indicates pt may need termite treater helper TPN and PICC/Port placement (?) This CASTER OPERATOR discussed w/ JUNIOR Urrutia and she suggested wait for another 24-48 to determine and coordinate DC needs. Following closely. JW
--- NOTE | 2018-06-16 11:20 | PT.IPTN ---
Current Diagnoses Intestinal adhesions [bands], unspecified as to partial versus complete obstruction (06/08/18) Surgery Performed Operation Date: 06/13/18 13:15 Actual Procedures p Exploratory Laparotomy, LYSIS OF ADHESIONS, Placement of gastrostomy tube(Not Applicable) - Tate Levy MD Physical Therapy Treatment Note M2 PT-IP Current Condition Start: 06/14/18 10:27 Freq: NEEDED Status: Active Protocol: Document 06/14/18 10:27 [facility] (Rec: 06/14/18 10:33 [facility] [id number]) Physical Therapy Current Condition Current Condition Evaluation Date 04/26/18 Treatment Diagnosis s/p exploratory laporotomy, weakness Precautions Abdominal Surgery Precautions Log Roll Lifting Restrictions Gait Belt above Incisional Area Weight Bearing Status Weight Bearing Status Full Weight Bearing M3 PT-IP Subjective Start: 06/14/18 10:27 Freq: NEEDED Status: Active Protocol: Document 06/16/18 11:20 [facility] (Rec: 06/16/18 11:40 [facility] [id number]) Subjective Physical Therapy Visit Type Type Treatment Note Visit Start Time 11:50 Visit Stop Time 11:20 Total Visit Minutes 30 Number of TRAUMA REGISTRAR Visits 0 Physical Therapy Visit Comments Patient Comments Pt would like to walk today. Therapy Pain Assessment Pain Present Pain Present Pain Reported M4 PT-IP Mobility and Gait Start: 06/14/18 10:27 Freq: NEEDED Status: Active Protocol: Document 06/16/18 11:20 [facility] (Rec: 06/16/18 11:40 [facility] [id number]) PT-Bed Mobility Assessment Rolling Type of Rolling Log Rolling Level of Assist Minimal Assistance 1 Person Assistance Supine to Sit Supine to Sit Minimal Assistance 1 Person Assistance Scooting Scooting to Edge of Bed Standby Assistance PT-Transfer Assessment Sit to and From Stand Sit to and from Stand Standby Assistance Equipment Transfer Assistive Device Gait Belt Front Wheeled Walker Transfers Transfer Destination Chair Transfer Technique Stand Step Pivot Transfer Ability Level of Assist Standby Assistance Gait Assessment Gait Gait Assistance Required: Contact Guard Assist Distance (Feet) 85 Assistive Devices Assistive Device Gait Belt Front Wheeled Walker Gait Deviations General Gait Pattern Flexed Trunk Wide Based Gait Factors Limiting Gait Function Factors Limiting Gait Function Decreased Activity Tolerance Decreased Strength Pain Comments Gait Comments O2 saturation on RA down to 86 % after gait, placed back on supplemental 2-L O2 and up to 93% after seated 2 min rest M5 PT-IP Objective Assessments Start: 06/14/18 10:27 Freq: NEEDED Status: Active Protocol: Document 06/14/18 10:27 [facility] (Rec: 06/14/18 10:33 [facility] [id number]) Orientation Orientation/Cognition Level of Alertness Lethargic Strength Lower Extremity Strength Assessment Bilaterally Impaired M6 PT-IP Treatment Start: 06/14/18 10:27 Freq: NEEDED Status: Active Protocol: Document 06/16/18 11:20 [facility] (Rec: 06/16/18 11:40 [facility] [id number]) Physical Therapy Treatment Education Education Provided Precautions M7 PT-IP Assessment and Plan Start: 06/14/18 10:27 Freq: NEEDED Status: Active Protocol: Document 06/16/18 11:20 [facility] (Rec: 06/16/18 11:40 [facility] [id number]) PT Summary Assessment and Plan Summary Progress Towards Goals Slow Progress due to Pain Assessment Summary POD #3. Pt able to ambulate 85 ft with FWW today, pain remained steady throughout mobility but alway present. She was fatigued after gait, requested to lay down but RN suggested sitting in chair which pt complied with. Pt will need to progress gait, bed mobility and complete stairs (full flight) prior to d/c in order for recommendation to return home, which she is unable to tolerate at this time. Goals Bed Mobility Goal Independent Transfer Goal Independent Gait Goal Standby Assistance Gait Distance 200ft w/least restrictive device Other Goals up/down flight of stairs with 1 rail SBA Days to Meet Goals 6 Frequency of Treatment Frequency Of Treatment Twice a Day Treatment Plan Other Recommendations and Next Treatment progress gait as tolerated, Focus will need stair training prior to d/c. Recommendations To Nursing Amount of Assist Needed 1 Person Assist Discharge Recommendations PT Discharge Recommendations Home with Assistance Home Health
--- NOTE | 2018-06-16 12:55 | PC.NURSE ---
Day Shift Note Epidural catheter discontinued at 1100 without issue and tip intact. Lovenox retimed for 1500 per protocol. Up walking in halls with PT and sitting in chair. Encouraged to cough and deep breathe and to use IS at bedside. Requires reminders of the above. Oxygen sats 93-94% on 2L NC. Using Dilaudid PHYSICAL THERAPIST ASSISTANT for pain control. Call light within reach.
--- NOTE | 2018-06-16 13:40 | PT.IPTN ---
Current Diagnoses Intestinal adhesions [bands], unspecified as to partial versus complete obstruction (06/08/18) Surgery Performed Operation Date: 06/13/18 13:15 Actual Procedures p Exploratory Laparotomy, LYSIS OF ADHESIONS, Placement of gastrostomy tube(Not Applicable) - Tate Levy MD Physical Therapy Treatment Note M2 PT-IP Current Condition Start: 06/14/18 10:27 Freq: NEEDED Status: Active Protocol: Document 06/14/18 10:27 [facility] (Rec: 06/14/18 10:33 [facility] [id number]) Physical Therapy Current Condition Current Condition Evaluation Date 04/26/18 Treatment Diagnosis s/p exploratory laporotomy, weakness Precautions Abdominal Surgery Precautions Log Roll Lifting Restrictions Gait Belt above Incisional Area Weight Bearing Status Weight Bearing Status Full Weight Bearing M3 PT-IP Subjective Start: 06/14/18 10:27 Freq: NEEDED Status: Active Protocol: Document 06/16/18 13:40 [facility] (Rec: 06/16/18 14:18 [facility] [id number]) Subjective Physical Therapy Visit Type Type Treatment Note Visit Start Time 13:40 Visit Stop Time 14:07 Total Visit Minutes 27 Number of TACKING STITCH REMOVER Visits 0 Physical Therapy Visit Comments Patient Comments pt agreeable to do PT Therapy Pain Assessment Pain When Pain Assessed At Rest Pain Present Pain Present Pain Reported Location Bilateral Lower Abdomen Intensity 6 Scale Used increases to 9/10 with movement Pain Management Techniques Timing of Activity with Medications M4 PT-IP Mobility and Gait Start: 06/14/18 10:27 Freq: NEEDED Status: Active Protocol: Document 06/16/18 13:40 [facility] (Rec: 06/16/18 14:18 [facility] [id number]) PT-Bed Mobility Assessment Rolling Type of Rolling Log Rolling Level of Assist Maximal Assistance 2 Person Assistance Supine to Sit Supine to Sit Maximum Assistance 2 Person Assistance PT-Transfer Assessment Sit to and From Stand Sit to and from Stand Contact Guard Assistance Comments Mobility Comments pt requested to go back in bed after ambulation. c/o feeling tired and increase abdominal pain. nurse aware. Gait Assessment Gait Gait Assistance Required: Contact Guard Assist Distance (Feet) 100 Able to Maintain Weight Bearing Status Yes During Gait Assistive Devices Assistive Device Gait Belt Front Wheeled Walker Orthotic/Prosthetic Devices or Brace: No Gait Deviations General Gait Pattern Decreased Stride Length Decreased Feet Clearance Factors Limiting Gait Function Factors Limiting Gait Function Decreased Activity Tolerance Decreased Strength Limited Range of Motion Pain Poor Balance Poor Safety Awareness M5 PT-IP Objective Assessments Start: 06/14/18 10:27 Freq: NEEDED Status: Active Protocol: Document 06/14/18 10:27 [facility] (Rec: 06/14/18 10:33 [facility] [id number]) Orientation Orientation/Cognition Level of Alertness Lethargic Strength Lower Extremity Strength Assessment Bilaterally Impaired M6 PT-IP Treatment Start: 06/14/18 10:27 Freq: NEEDED Status: Active Protocol: Document 06/16/18 11:20 [facility] (Rec: 06/16/18 11:40 [facility] [id number]) Physical Therapy Treatment Education Education Provided Precautions M7 PT-IP Assessment and Plan Start: 06/14/18 10:27 Freq: NEEDED Status: Active Protocol: Document 06/16/18 13:40 [facility] (Rec: 06/16/18 14:18 [facility] [id number]) PT Summary Assessment and Plan Potential Rehabilitation Potential Good Summary Impairments Pain ROM Strength Balance Coordination Sensation Tone Cognition Bed Mobility Transfers Gait Activity Tolerance Progress Towards Goals Slow Progress due to Medical Issues Slow Progress due to Activity Tolerance Assessment Summary pt requiring CGA with ambulation but 2 person assist with bed mobility. d/c plan depending on progress but at this time may require SNF rehab to improve strength and functional independence. Goals Bed Mobility Goal Independent Transfer Goal Independent Gait Goal Standby Assistance Gait Distance 200ft w/least restrictive device Other Goals up/down flight of stairs with 1 rail SBA Days to Meet Goals 6 Frequency of Treatment Frequency Of Treatment Twice a Day Treatment Plan Other Recommendations and Next Treatment progress gait as tolerated, Focus will need stair training prior to d/c. Recommendations To Nursing Amount of Assist Needed 1 Person Assist Discharge Recommendations PT Discharge Recommendations Home with 24/7 Assist Home Health SNF Rehab Other Discharge Recommendations home with 24/7 and homehealth services vs SNF depending on progress
--- NOTE | 2018-06-16 16:32 | PC.NURSE ---
zhou schultz Pt extubated at 16:00. Pt premedicated with 50 mcg IV fentanyl, 0.5 mg Ativan via OGT, 4 mg Zofran for c/o nausea. Pt extubated to bipap with pressure settings 14/6, FiO2 35%, rate 12. Pt's HR maintaining >120 on 10 mg/hr of diltiazem, so gtt rate increased to 12.5, then 15 mg/hr. HR now 100s-110s. RR varies between 22-39. Tidal volumes 275 ml and greater. One daughter allowed to visit for a few minutes. Pt did not want other visitors. Pt swallowed 3 teaspoons of water from spoon with no coughing.
[2018-06-16] MEDS: ENOXAPARIN 40 MG/0.4 ML SYRINGE SUBCUT (16:58)
[2018-06-16] MEDS: LYTES IV (18:18)
[2018-06-16] MEDS: POTASSIUM CHLORIDE IV (18:18)
[2018-06-16] MEDS: DEXT IV (18:18)
[2018-06-16] MEDS: CALCIUM IV (18:18)
[2018-06-16] MEDS: [UNRECOGNIZED DRUG - OTHER] IV (18:18)
[2018-06-16] MEDS: FAT EMULSIONS 50 GM/250 ML EMULSION IV (18:18)
--- NOTE | 2018-06-16 19:50 | PC.NURSE ---
zhou note pt reports 8/10 pain to abd. Pt at that time had only used 0.4 mg dilaudid from MANAGER BOOK in 3 hours. Encouraged MANAGER BOOK use. NGT with yellow-green drainage. Tried pt on room air, sats 90% while awake. 2 L NC back on. Medicated with one mg Ativan.
--- NOTE | 2018-06-16 20:04 | PC.NURSE ---
Pt to room 210 from ICU. Able to transfer with assistance from wheelchair to bed. TPN/lipids and normal saline infusing as ordered to dual lumen PICC LUE. Midline incision is open to air. G-tube to wallis bag to gravity draining light yellow fluid. NG to LIS. Wallis to gravity with dark paola urine. Continuous pulse oximeter room air 98%. Encouraged to call for needs. States desires to sleep. Oriented to call light and staff.
[2018-06-17] VITALS (9 sets, daily range): BP systolic 147–177; BP diastolic 85–114; PULSE 88–101; RESP 18–21; TEMP 36.6–37.1; O2SAT 94–100
[2018-06-17] MEDS: LORazepam 2 MG/ML SYRINGE 1 MG IV ×3 (00:03→14:13)
[2018-06-17] MEDS: BENZOCAINE/MENTHOL 1 LOZ PKT 1 EACH PO (00:04)
[2018-06-17] MEDS: SODIUM CHLORIDE 0.9% 1,000 ML 42 ML IV (03:00)
[2018-06-17] MEDS: CEFOTETAN 2 GM/50 ML PIGGYBACK IV ×2 (05:32→17:53)
[2018-06-17] MEDS: HYDROMORPHONE PCA 6 MG/30 ML PCA.VIAL IV ×3 (05:38→22:13)
[2018-06-17] MEDS: PANTOPRAZOLE 40 MG VIAL IV (08:26)
[2018-06-17] MEDS: FLUCONAZOLE 400 MG/200 ML PIGGYBACK 100 MG IV (08:33)
--- NOTE | 2018-06-17 08:33 | PM.PN.1 ---
Subjective Date Patient Seen: 06/17/18 Time Patient Seen: 08:33 Interval history: Patient transferred from ICU to acute care unit last evening. She is somewhat fatigued from the transfer. However, she states she slept relatively well otherwise. Continues to complain of incisional pain but the NUCLEAR PHYSICS TEACHER appears effective. In fact, she is essentially somnolent and sleeping at the time of my visit but arousable while complaining of incisional pain. She has not used her NUCLEAR PHYSICS TEACHER excessively overnight. She did receive Ativan approximately 5:00 a.m. this morning. She denies any flatus or bowel movement. No chest pain or shortness of breath. No nausea or vomiting. No subjective fevers. Exam Vital Signs (past 8 hours): - 06/17/18 05:15 Temperature 98.8 F Pulse Rate 96 H Respiratory Rate 18 Blood Pressure 155/85 H Pulse Oximetry 96 Oxygen Delivery Method Room Air Oxygen Flow Rate 0 Narrative Exam Narrative: Patient seen and examined with the attending nurse. Again, patient is somnolent lying comfortably in bed in no acute distress. She is arousable and otherwise alert. No fevers. No tachycardia. Blood pressure remained stable with some mild diastolic hypertension per baseline She continues to have significant spontaneous diuresis of clear yellow urine Nasogastric tube and gastrostomy tube were both draining approximately 300 cc of bile tinged fluid. No further fecal in character to the fluid. In fact, output is becoming clear. Chest clear to auscultation bilaterally with regular rate and rhythm. No murmurs. However, her inspiratory effort is quite diminished this morning. No crackles or wheezes. Breath sounds at the bases are quite diminished bilaterally. Abdomen is soft and mildly distended. Minimal bowel sounds. Wound is clean, dry, and intact without erythema, ecchymosis, hematoma, seroma, or drainage. Gastrostomy tube site is clean. She is appropriately tender to palpation without involuntary guarding or rebound. She is mostly tender in the epigastric and right upper quadrant area. Extremities show no clubbing or cyanosis. Trace bilateral ankle edema. Objective Labs Result Diagrams: 06/16/18 04:49 06/16/18 04:49 Labs: Laboratory Results - last 24 hr 06/16/18 11:00 Nasal Screen MRSA (PCR) Negative for mrsa No recent laboratory or radiographic studies for review today Assessment & Plan Plan: Assessment/Plan Narrative: 53-year-old female now postoperative day 4 from laparotomy with extensive lysis of adhesions who remains stable. I will clamp the NG tube today and rely on the gastrostomy tube for gastric decompression. If he tolerates NG clamping over the next 24 hr continuously then I will remove the tube and rely solely on the gastrostomy tube for gastric drainage. She will remain NPO except ice chips for now. I once again emphasized to her and her family that ambulation in the hallways is critical. Her pulmonary toilet also needs improvement. Continue physical therapy. She may shower today. I will continue the Chaparro for 1 more day since she appears to be diuresing well. Likely discontinue Chaparro tomorrow. She remains on appropriate DVT prophylaxis. She is completing her course of cefotetan and Diflucan within the next day or so. Continue proton pump inhibitor therapy. Metoprolol intravenously as needed for hypertension. Repeat laboratory studies tomorrow, and continue TPN without lipids today with current formula as she appears to be tolerating this well. All the above discussed with the patient, and she voiced understanding. Orders were written.
--- NOTE | 2018-06-17 10:29 | PC.NURSE ---
Addendum entered by Jenny Bay R.N. 06/17/18 14:35: bp - as pt bp remained dbp greater 85, discussed metoprolol with icu, given 5mg iv now. Original Note: Addendum entered by Jenny Bay R.N. 06/17/18 14:19: PAIN/GI - pt awake, continues drowsy but appropriate, ra 100%, states feels awful, no specific complaints pain, no nausea, req ativan, generalized fatigue and weakness, just wants to sleep, discussed dosage and timing and given 1mg iv now. Original Note: Addendum entered by Jenny Bay R.N. 06/17/18 12:16: MS/PAIN - discussed mobilization later am after pt had rested, discussed holding off any addl ativan until after phys therapy as pt continues to be drowsy, pt grace clamped ng w/o nausea, pain managed with rag cutting machine feeder, states just feels very tired, did agree to ambul with phys therapy, up w/fww, gait slow, steady, did become labored with exhertion, to ne station and then back to room, and declined chair, assisted back to bed and repositioned, some redness w/o breakdown coccyx, enc side to side repositioning. Original Note: AM NOTE - during bedside report, pt briefly opens eyes and is asking for ativan, pt just received earlier on nights and too early next dose, pt actually falls asleep quickly after in, able to use rag cutting machine feeder for incisional discomfort, given cool cloth for forehead as pt stated she didn't sleep during night and pt observed dozing throughout am, stapled incision open air, G tube is sutured in and after discussion with Dr. Levy to make sure tubing does not crimp, placed a folded 4x4 at [place] to keep slightly elevated and straight, some small qty brown fluid in the wallis bag, the wallis catheter w/clear yellow urine, Dr. Levy req that ng be clamped and done while present according to his instructions, later pt continued to doze, when awakened denies nausea. Per instructions ivf reduced 21ml/hr, new orders tpn written for tonight.
[2018-06-17] MEDS: ENOXAPARIN 40 MG/0.4 ML SYRINGE SUBCUT (14:03)
--- NOTE | 2018-06-17 14:12 | PT.IPTN ---
Current Diagnoses Intestinal adhesions [bands], unspecified as to partial versus complete obstruction (06/08/18) Surgery Performed Operation Date: 06/13/18 13:15 Actual Procedures p Exploratory Laparotomy, LYSIS OF ADHESIONS, Placement of gastrostomy tube(Not Applicable) - Tate Levy MD Physical Therapy Treatment Note M2 PT-IP Current Condition Start: 06/14/18 10:27 Freq: NEEDED Status: Active Protocol: Document 06/14/18 10:27 [facility] (Rec: 06/14/18 10:33 [facility] [id number]) Physical Therapy Current Condition Current Condition Evaluation Date 04/26/18 Treatment Diagnosis s/p exploratory laporotomy, weakness Precautions Abdominal Surgery Precautions Log Roll Lifting Restrictions Gait Belt above Incisional Area Weight Bearing Status Weight Bearing Status Full Weight Bearing M3 PT-IP Subjective Start: 06/14/18 10:27 Freq: NEEDED Status: Active Protocol: Document 06/17/18 11:06 [facility] (Rec: 06/17/18 14:11 [facility] [id number]) Subjective Physical Therapy Visit Type Type Treatment Note Visit Start Time 11:06 Visit Stop Time 11:30 Total Visit Minutes 24 Number of CAMPAIGN SPECIALIST Visits 1 Physical Therapy Visit Comments Patient Comments Pt wanting to walk but wants to return to bed after ambulation. Therapy Pain Assessment Pain When Pain Assessed At Rest Pain Present Pain Present Pain Reported Location Bilateral Lower Abdomen Intensity 5 Scale Used Numeric (1 - 10) Pain Management Techniques Timing of Activity with Medications M4 PT-IP Mobility and Gait Start: 06/14/18 10:27 Freq: NEEDED Status: Active Protocol: Document 06/17/18 11:06 [facility] (Rec: 06/17/18 14:11 [facility] [id number]) PT-Bed Mobility Assessment Rolling Type of Rolling Log Rolling Level of Assist Maximal Assistance 1 Person Assistance Supine to Sit Supine to Sit Maximum Assistance 1 Person Assistance Sit to Supine Sit to Supine Moderate Assistance 2 Person Assistance Scooting Scooting to Edge of Bed Standby Assistance PT-Transfer Assessment Sit to and From Stand Sit to and from Stand Contact Guard Assistance Equipment Transfer Assistive Device Gait Belt Front Wheeled Walker Transfers Transfer Destination Bed Transfer Technique Stand Step Pivot Transfer Ability Level of Assist Contact Guard Assistance Comments Mobility Comments Pt required Max A x1 OOB requiring cues for sequencing log roll, and Mod A x2 sit- supine and assist with lines. Gait Assessment Gait Gait Assistance Required: Contact Guard Assist Distance (Feet) 120 Assistive Devices Assistive Device Gait Belt Front Wheeled Walker Orthotic/Prosthetic Devices or Brace: No Gait Deviations General Gait Pattern Decreased Stride Length Decreased Feet Clearance Flexed Trunk Factors Limiting Gait Function Factors Limiting Gait Function Decreased Activity Tolerance Decreased Strength Limited Range of Motion Pain Poor Balance Poor Safety Awareness Comments Gait Comments Pt ambulated ~120ft CGA w/FWW. M5 PT-IP Objective Assessments Start: 06/14/18 10:27 Freq: NEEDED Status: Active Protocol: Document 06/14/18 10:27 [facility] (Rec: 06/14/18 10:33 [facility] [id number]) Orientation Orientation/Cognition Level of Alertness Lethargic Strength Lower Extremity Strength Assessment Bilaterally Impaired M6 PT-IP Treatment Start: 06/14/18 10:27 Freq: NEEDED Status: Active Protocol: Document 06/16/18 11:20 [facility] (Rec: 06/16/18 11:40 [facility] [id number]) Physical Therapy Treatment Education Education Provided Precautions M7 PT-IP Assessment and Plan Start: 06/14/18 10:27 Freq: NEEDED Status: Active Protocol: Document 06/17/18 11:06 [facility] (Rec: 06/17/18 14:11 [facility] [id number]) PT Summary Assessment and Plan Summary Impairments Pain ROM Strength Balance Coordination Sensation Tone Cognition Bed Mobility Transfers Gait Activity Tolerance Progress Towards Goals Slow Progress due to Medical Issues Slow Progress due to Activity Tolerance Assessment Summary Pt continues to require Max- Mod A with Log roll and supine <>sit. D/C plan depending on progress but at this time may require SNF rehab to improve strength and functional independence. Goals Bed Mobility Goal Independent Transfer Goal Independent Gait Goal Standby Assistance Gait Distance 200ft w/least restrictive device Other Goals up/down flight of stairs with 1 rail SBA Days to Meet Goals 6 Frequency of Treatment Frequency Of Treatment Twice a Day Treatment Plan Other Recommendations and Next Treatment progress gait as tolerated, Focus will need stair training prior to d/c. Recommendations To Nursing Amount of Assist Needed 1 Person Assist Discharge Recommendations PT Discharge Recommendations Home with 24/7 Assist Home Health SNF Rehab Other Discharge Recommendations home with 24/7 and homehealth services vs SNF depending on progress
[2018-06-17] MEDS: METOPROLOL TARTRATE 5 MG/5 ML INJ IV ×2 (14:39→16:24)
--- NOTE | 2018-06-17 15:44 | PT.IPTN ---
Current Diagnoses Intestinal adhesions [bands], unspecified as to partial versus complete obstruction (06/08/18) Surgery Performed Operation Date: 06/13/18 13:15 Actual Procedures p Exploratory Laparotomy, LYSIS OF ADHESIONS, Placement of gastrostomy tube(Not Applicable) - Tate Levy MD Physical Therapy Treatment Note M2 PT-IP Current Condition Start: 06/14/18 10:27 Freq: NEEDED Status: Active Protocol: Document 06/14/18 10:27 LRH (Rec: 06/14/18 10:33 LR [id number]) Physical Therapy Current Condition Current Condition Evaluation Date 04/26/18 Treatment Diagnosis s/p exploratory laporotomy, weakness Precautions Abdominal Surgery Precautions Log Roll Lifting Restrictions Gait Belt above Incisional Area Weight Bearing Status Weight Bearing Status Full Weight Bearing M3 PT-IP Subjective Start: 06/14/18 10:27 Freq: NEEDED Status: Active Protocol: Document 06/17/18 15:35 CLB (Rec: 06/17/18 15:44 CLB [id number]) Subjective Physical Therapy Visit Type Type Patient Refusal Notes Pt states she is fatigued and doesn't want to get up. M4 PT-IP Mobility and Gait Start: 06/14/18 10:27 Freq: NEEDED Status: Active Protocol: Document 06/17/18 11:06 CLB (Rec: 06/17/18 14:11 CLB [id number]) PT-Bed Mobility Assessment Rolling Type of Rolling Log Rolling Level of Assist Maximal Assistance 1 Person Assistance Supine to Sit Supine to Sit Maximum Assistance 1 Person Assistance Sit to Supine Sit to Supine Moderate Assistance 2 Person Assistance Scooting Scooting to Edge of Bed Standby Assistance PT-Transfer Assessment Sit to and From Stand Sit to and from Stand Contact Guard Assistance Equipment Transfer Assistive Device Gait Belt Front Wheeled Walker Transfers Transfer Destination Bed Transfer Technique Stand Step Pivot Transfer Ability Level of Assist Contact Guard Assistance Comments Mobility Comments Pt required Max A x1 OOB requiring cues for sequencing log roll, and Mod A x2 sit- supine and assist with lines. Gait Assessment Gait Gait Assistance Required: Contact Guard Assist Distance (Feet) 120 Assistive Devices Assistive Device Gait Belt Front Wheeled Walker Orthotic/Prosthetic Devices or Brace: No Gait Deviations General Gait Pattern Decreased Stride Length Decreased Feet Clearance Flexed Trunk Factors Limiting Gait Function Factors Limiting Gait Function Decreased Activity Tolerance Decreased Strength Limited Range of Motion Pain Poor Balance Poor Safety Awareness Comments Gait Comments Pt ambulated ~120ft CGA w/FWW. M5 PT-IP Objective Assessments Start: 06/14/18 10:27 Freq: NEEDED Status: Active Protocol: Document 06/14/18 10:27 LRH (Rec: 06/14/18 10:33 [facility] [email or web address]) Orientation Orientation/Cognition Level of Alertness Lethargic Strength Lower Extremity Strength Assessment Bilaterally Impaired M6 PT-IP Treatment Start: 06/14/18 10:27 Freq: NEEDED Status: Active Protocol: Document 06/16/18 11:20 RCC (Rec: 06/16/18 11:40 RCC [id number]) Physical Therapy Treatment Education Education Provided Precautions M7 PT-IP Assessment and Plan Start: 06/14/18 10:27 Freq: NEEDED Status: Active Protocol: Document 06/17/18 11:06 CLB (Rec: 06/17/18 14:11 CLB [id number]) PT Summary Assessment and Plan Summary Impairments Pain ROM Strength Balance Coordination Sensation Tone Cognition Bed Mobility Transfers Gait Activity Tolerance Progress Towards Goals Slow Progress due to Medical Issues Slow Progress due to Activity Tolerance Assessment Summary Pt continues to require Max- Mod A with Log roll and supine <>sit. D/C plan depending on progress but at this time may require SNF rehab to improve strength and functional independence. Goals Bed Mobility Goal Independent Transfer Goal Independent Gait Goal Standby Assistance Gait Distance 200ft w/least restrictive device Other Goals up/down flight of stairs with 1 rail SBA Days to Meet Goals 6 Frequency of Treatment Frequency Of Treatment Twice a Day Treatment Plan Other Recommendations and Next Treatment progress gait as tolerated, Focus will need stair training prior to d/c. Recommendations To Nursing Amount of Assist Needed 1 Person Assist Discharge Recommendations PT Discharge Recommendations Home with 24/7 Assist Home Health SNF Rehab Other Discharge Recommendations home with 24/7 and homehealth services vs SNF depending on progress
--- NOTE | 2018-06-17 17:26 | PC.NURSE ---
Evening Shift Note- Patient in bed resting quietly with eyes closed. patient wakes easily. PRN IV Metoprolol given on days hift at 1415 for elevated BP. BP checked at 1545 BP at 177/114 with Pulse at 93. Called Dr. Levy, recieved new orders for Metoprolol 5mg NOW and then Metoprolol 10mg IV Q6H PRN. NOW dose given at 1423, BP checked 5 minutes later with reading at 162/97 anf pulse at 86. Rechecked again after another 15 minutes with reading at 154/96 and pulse at 94. Patient complaints of abdominal pain, encouraged to used WORKFORCE ANALYST for pain control. safety measures in place. call byrnes and phone within reach. bed alarm activated. will continue to monitor.
[2018-06-17] MEDS: CALCIUM IV (17:48)
[2018-06-17] MEDS: POTASSIUM CHLORIDE IV (17:48)
[2018-06-17] MEDS: [UNRECOGNIZED DRUG - OTHER] IV (17:48)
[2018-06-17] MEDS: DEXT IV (17:48)
[2018-06-17] MEDS: LYTES IV (17:48)
[2018-06-17] MEDS: KETOROLAC 15 MG/ML VIAL IV (18:11)
[2018-06-18] VITALS (11 sets, daily range): BP systolic 128–155; BP diastolic 67–89; PULSE 62–102; RESP 18–20; TEMP 36.4–37.8; O2SAT 94–97
[2018-06-18] MEDS: METOPROLOL TARTRATE 5 MG/5 ML INJ 10 MG IV (00:44)
[2018-06-18] MEDS: HYDROMORPHONE PCA 6 MG/30 ML PCA.VIAL IV ×2 (05:56→22:49)
[2018-06-18 06:08] LABS: Add Manual Diff / Slide Review NO; Basophils Percent Auto 0.6 % (0-2); Eosinophils Percent Auto 0.9 % (2-4); Hematocrit 28.9 % (36-46); Hemoglobin 9.7 g/dL (12.0-16.0); Lymphocytes Percent Auto 11.5 % (25-40); Mean Corpuscular HGB Conc 33.4 % (30-36); Mean Corpuscular Hemoglobin 28.8 PG (26-34); Mean Corpuscular Volume 86.1 fL (80-100); Monocytes Percent Auto 9.8 % (3-14); Neutrophils Absolute Auto 7000 /uL (1500-7000); Neutrophils Percent Auto 77.2 % (50-75); Platelet Count 319 X10^3/uL (150-400); Red Blood Cell Count 3.36 X10^6/uL (4.0-5.2)
[2018-06-18 06:10] LABS: Alanine Aminotransferase 28 IU/L (9-52); Albumin 2.7 g/dL (3.5-5.0); Albumin Globulin Ratio 0.8 (1.0-2.8); Alkaline Phosphatase 107 U/L (38-126); Aspartate Aminotransferase 38 IU/L (14-36); Bilirubin Total 0.5 mg/dL (0.2-1.3); Blood Urea Nitrogen 9 mg/dL (7-17); Calcium 8.6 mg/dL (8.4-10.2); Carbon Dioxide 30 mmol/L (22-32); Chloride 96 mmol/L (98-107); Estimated Glomerular Filt Rate > 60.0 mL/min (>60); Globulin 3.2 g/dL (1.7-4.1); Glucose 136 mg/dL (70-100); HEMOLYSIS < 15 (0-50); Magnesium 1.8 mg/dL (1.6-2.3); Phosphorous 5.4 mg/dL (2.5-4.5); Potassium 4.6 mmol/L (3.4-5.1); Sodium 133 mmol/L (137-145); Total Protein 5.9 g/dL (6.3-8.2)
[2018-06-18] MEDS: KETOROLAC 15 MG/ML VIAL IV ×3 (06:41→20:58)
[2018-06-18] MEDS: FLUCONAZOLE 400 MG/200 ML PIGGYBACK 100 MG IV (07:51)
--- NOTE | 2018-06-18 08:19 | P.PN_ITS ---
Subjective Date Patient Seen: 06/18/18 Time Patient Seen: 08:14 Interval history: Denies nausea or vomiting since having NG clamped 24 hr ago. No flatus or bowel movement however. Continues to complain of epigastric pain mostly near the G-tube site. Pain is exacerbated with cough or getting out of bed. No subjective fever or chills. No chest pain or shortness of breath. Exam Vital Signs (past 8 hours): - 06/18/18 00:30 06/18/18 00:57 06/18/18 05:45 Temperature 98.8 F 98.2 F Pulse Rate 94 H 97 H Respiratory Rate 18 19 Blood Pressure 149/89 H 155/80 H Pulse Oximetry 94 94 94 06/18/18 08:02 Temperature Pulse Rate Respiratory Rate Blood Pressure Pulse Oximetry 95 Oxygen Delivery Method Room Air Oxygen Flow Rate 0 Narrative Exam Narrative: Moderately obese female lying in bed in no acute distress. Alert oriented x3. She is much more awake and less somnolent this morning compared to yesterday. She states she rested relatively well last night. No fevers in the last 24 hr. No tachycardia. Her blood pressure is much improved with increased metoprolol intravenously Adequate urine output. In fact, she is diuresing spontaneously quite well clear yellow urine No crackles or wheezes Abdomen is soft and minimally distended. She is appropriately tender to palpation around the incision without guarding or rebound. Wound is clean, dry , and intact without erythema, ecchymosis, hematoma, seroma, or drainage Extremities show no clubbing or cyanosis Objective Labs Result Diagrams: 06/18/18 05:38 06/18/18 05:38 Labs: Laboratory Results - last 24 hr 06/18/18 06/18/18 05:38 05:38 WBC 9.0 RBC 3.36 L Hgb 9.7 L Hct 28.9 L MCV 86.1 MCH 28.8 MCHC 33.4 RDW 15.0 H Plt Count 319 Neut % (Auto) 77.2 H Lymph % (Auto) 11.5 L [place] % (Auto) 9.8 Eos % (Auto) 0.9 L Baso % (Auto) 0.6 Neut # (Auto) 7000 Sodium 133 L Potassium 4.6 Chloride 96 L Carbon Dioxide 30 BUN 9 Creatinine 0.60 Estimated GFR > 60.0 BUN/Creatinine Ratio 15.0 Glucose 136 H Calcium 8.6 Phosphorus 5.4 H D Magnesium 1.8 Total Bilirubin 0.5 AST 38 H ALT 28 Alkaline Phosphatase 107 Total Protein 5.9 L Albumin 2.7 L Globulin 3.2 Albumin/Globulin Ratio 0.8 L Assessment & Plan Plan: Assessment/Plan Narrative: 53-year-old female now postoperative day 5 from laparotomy with extensive lysis of adhesions and placement of gastrostomy tube who overall is doing relatively well given the severity of her issues and high-grade small-bowel obstruction. I checked the residual on her nasogastric tube this morning and found to be quite minimal and only 40 cc or so. Therefore the tube was removed without issue. She tolerated this well. Chaaprro catheter has been removed this morning at my order as well. She has yet to urinate spontaneously since removal. Discontinue cefotetan and Diflucan after doses today and tomorrow, respectively. Her headache is much improved with blood pressure control and with intermittent Toradol as needed. 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 Continue NPO except ice chips at minimal volume. I discussed this with her. Continue the gastrostomy tube to gravity drainage and monitor output. TPN reordered. I will increase the sodium chloride content of the TPN if the current normal saline infusion does not supplement her sodium appropriately. Otherwise her electrolytes are very stable. She has normal white blood cell count and stable hemoglobin as well. Continue DVT prophylaxis. Ulcer prophylaxis with Protonix intravenously. Her major issue remains mobilization. I again emphasized this with her at length today. Continue physical therapy and ambulate aggressively. She may shower also. I discussed all the above with her in detail. All questions were answered to her satisfaction, and she voiced understanding. Case reviewed with attending nurse today as well. Orders written.
--- NOTE | 2018-06-18 10:43 | PT.IPTN ---
Current Diagnoses Intestinal adhesions [bands], unspecified as to partial versus complete obstruction (06/08/18) Surgery Performed Operation Date: 06/13/18 13:15 Actual Procedures p Exploratory Laparotomy, LYSIS OF ADHESIONS, Placement of gastrostomy tube(Not Applicable) - Tate Levy MD Physical Therapy Treatment Note M2 PT-IP Current Condition Start: 06/14/18 10:27 Freq: NEEDED Status: Active Protocol: Document 06/14/18 10:27 LR (Rec: 06/14/18 10:33 [facility] [id number]) Physical Therapy Current Condition Current Condition Evaluation Date 04/26/18 Treatment Diagnosis s/p exploratory laporotomy, weakness Precautions Abdominal Surgery Precautions Log Roll Lifting Restrictions Gait Belt above Incisional Area Weight Bearing Status Weight Bearing Status Full Weight Bearing M3 PT-IP Subjective Start: 06/14/18 10:27 Freq: NEEDED Status: Active Protocol: Document 06/18/18 10:42 CLB (Rec: 06/18/18 10:43 CLB [id number]) Subjective Physical Therapy Visit Type Type Patient Refusal Notes Pt refused stating she was tired. Will return this afternoon to follow up with pt .
[2018-06-18] MEDS: PANTOPRAZOLE 40 MG VIAL IV (10:55)
[2018-06-18] MEDS: ENOXAPARIN 40 MG/0.4 ML SYRINGE SUBCUT (14:32)
--- NOTE | 2018-06-18 15:52 | PC.NURSE ---
Shift summary: Late entry A&O X3. NG dc'd approx [address] Levy. NPO with ice chips, denies N/V. BT+, hypoactive and tympanic. Flatus+. Abd soft. Incision FRANKI and well-approximated with boyd. Gastrostomy to gravity drainage, scant light-green output. Used 3.6 mg of Dilaudid STRAP BUCKLER. Voiding WNL since wallis dc'd approx 0545. Extremely tired today, did not get up walking or shower for us, refused PT this morning. Calls appropriately with needs. Light in reach, bed alarm on.
--- NOTE | 2018-06-18 16:57 | PT.IPTN ---
Current Diagnoses Intestinal adhesions [bands], unspecified as to partial versus complete obstruction (06/08/18) Surgery Performed Operation Date: 06/13/18 13:15 Actual Procedures p Exploratory Laparotomy, LYSIS OF ADHESIONS, Placement of gastrostomy tube(Not Applicable) - Tate Levy MD Physical Therapy Treatment Note M2 PT-IP Current Condition Start: 06/14/18 10:27 Freq: NEEDED Status: Active Protocol: Document 06/14/18 10:27 LR (Rec: 06/14/18 10:33 [facility] [id number]) Physical Therapy Current Condition Current Condition Evaluation Date 04/26/18 Treatment Diagnosis s/p exploratory laporotomy, weakness Precautions Abdominal Surgery Precautions Log Roll Lifting Restrictions Gait Belt above Incisional Area Weight Bearing Status Weight Bearing Status Full Weight Bearing M3 PT-IP Subjective Start: 06/14/18 10:27 Freq: NEEDED Status: Active Protocol: Document 06/18/18 15:00 CLB (Rec: 06/18/18 16:57 CLB [id number]) Subjective Physical Therapy Visit Type Type Patient Refusal Notes Pt stated she was having a bad day and would walk tomorrow.
[2018-06-18] MEDS: [UNRECOGNIZED DRUG - OTHER] IV (18:26)
[2018-06-18] MEDS: LYTES IV (18:26)
[2018-06-18] MEDS: CALCIUM IV (18:26)
[2018-06-18] MEDS: POTASSIUM CHLORIDE IV (18:26)
[2018-06-18] MEDS: DEXT IV (18:26)
[2018-06-18] MEDS: FAT EMULSIONS 50 GM/250 ML EMULSION IV (18:26)
[2018-06-19] VITALS (11 sets, daily range): BP systolic 131–163; BP diastolic 75–86; PULSE 93–111; RESP 16–20; TEMP 36.7–38.4; O2SAT 95–97
[2018-06-19] MEDS: KETOROLAC 15 MG/ML VIAL IV ×3 (02:37→18:30)
[2018-06-19] MEDS: HYDROMORPHONE PCA 6 MG/30 ML PCA.VIAL IV ×3 (06:05→22:36)
[2018-06-19] MEDS: INSULIN ASPART 100 UNIT/ML INSULN PEN SUBCUT (06:06)
--- NOTE | 2018-06-19 08:13 | P.PN_ITS ---
Subjective Date Patient Seen: 06/19/18 Time Patient Seen: 08:10 Interval history: Feel somewhat cold this morning but no definitive chills. No subjective fevers. Denies chest pain or shortness of breath. Continues to have spontaneous urine output without dysuria. Passing some small amount of flatus but no bowel movement. Still feels subjectively distended but no nausea or vomiting since the nasogastric tube was clamped and removed over the last 48 hr. Ambulated somewhat yesterday but continues to have fatigue. Exam Vital Signs (past 8 hours): - 06/19/18 03:31 Temperature 99 F Pulse Rate 95 H Respiratory Rate 18 Blood Pressure 152/86 H Pulse Oximetry 95 Oxygen Delivery Method Room Air Oxygen Flow Rate 0 Narrative Exam Narrative: Patient lying in bed sleeping but easily arousable. Alert oriented x3. Conversing normally Regular rate and rhythm. No crackles or wheezes Abdomen remains distended and mildly tympanitic. Few bowel sounds. Wound is clean, dry, and intact without erythema or drainage. No ecchymoses or hematoma. She is appropriately tender to palpation without involuntary guarding or rebound. G-tube site is clean and intact. G-tube drainage is relatively minimal. Extremities show no clubbing or cyanosis. No significant edema. Objective Labs Result Diagrams: 06/18/18 05:38 06/18/18 05:38 Labs: No new laboratory or radiographic studies review today. Assessment & Plan Plan: Assessment/Plan Narrative: 53-year-old female now postoperative day number 6 following abdominal re- exploration with lysis of adhesions and placement of gastrostomy tube for recurrent high-grade bowel obstruction after laparotomy approximately 8 weeks ago now. She is doing well overall. In fact, she is doing better than anticipated given the intraoperative findings and inability to completely mobilize the adhesions. Will allow her clear liquid diet today but maintained a G-tube to gravity. I informed her that some of the fluid will drain into the tube which is not unanticipated. She require significant mobilization today. I discussed this with her in detail. She needs to comply better with physical therapy and ambulation in the hallways. Continue TPN and lipids. Repeat laboratory studies including CBC and complete metabolic panel tomorrow. If she tolerates the clear liquids that I will clamp the G-tube and see how she does with ongoing liquid diet. Again, anticipated very slow prolonged recovery. I discussed this with her. Questions were answered to her satisfaction, and she voiced understanding. Orders were written.
[2018-06-19] MEDS: PANTOPRAZOLE 40 MG VIAL IV (08:35)
[2018-06-19] MEDS: FLUCONAZOLE 400 MG/200 ML PIGGYBACK 100 MG IV (08:35)
--- NOTE | 2018-06-19 12:30 | PT.IPTN ---
Current Diagnoses Intestinal adhesions [bands], unspecified as to partial versus complete obstruction (06/08/18) Surgery Performed Operation Date: 06/13/18 13:15 Actual Procedures p Exploratory Laparotomy, LYSIS OF ADHESIONS, Placement of gastrostomy tube(Not Applicable) - Tate Levy MD Physical Therapy Treatment Note M2 PT-IP Current Condition Start: 06/14/18 10:27 Freq: NEEDED Status: Active Protocol: Document 06/14/18 10:27 LRH (Rec: 06/14/18 10:33 [facility] [id number]) Physical Therapy Current Condition Current Condition Evaluation Date 04/26/18 Treatment Diagnosis s/p exploratory laporotomy, weakness Precautions Abdominal Surgery Precautions Log Roll Lifting Restrictions Gait Belt above Incisional Area Weight Bearing Status Weight Bearing Status Full Weight Bearing M3 PT-IP Subjective Start: 06/14/18 10:27 Freq: NEEDED Status: Active Protocol: Document 06/19/18 11:25 CLB (Rec: 06/19/18 12:30 CLB [id number]) Subjective Physical Therapy Visit Type Type Treatment Note Visit Start Time 11:25 Visit Stop Time 11:43 Total Visit Minutes 18 Number of ERP PM Visits 2 Physical Therapy Visit Comments Patient Comments Pt wanting to get up to walk. M4 PT-IP Mobility and Gait Start: 06/14/18 10:27 Freq: NEEDED Status: Active Protocol: Document 06/19/18 11:25 CLB (Rec: 06/19/18 12:30 CLB [id number]) PT-Bed Mobility Assessment Rolling Type of Rolling Log Rolling Roll to Left Level of Assist Standby Assistance Supine to Sit Supine to Sit Standby Assistance Head of Bed Elevated Bedrails Sit to Supine Sit to Supine Standby Assistance Head of Bed Elevated Bedrails Scooting Scooting to Edge of Bed Standby Assistance Scooting Up and Down in Bed Standby Assistance PT-Transfer Assessment Sit to and From Stand Sit to and from Stand Standby Assistance 1 Person Assistance Use of Upper Extremities Equipment Transfer Assistive Device Bed Rail Front Wheeled Walker Orthotic/Prosthetic Devices or Brace: No Transfers Transfer Destination Bed Bedside Commode Transfer Technique Stand Step Pivot Transfer Ability Level of Assist Standby Assistance Comments Mobility Comments Pt states rolling to left is easier and less painful. Pt transfered to [facility] with stand pivot transfer CGA and was able to rony/doff brief and perform own pericare. Gait Assessment Gait Gait Assistance Required: Contact Guard Assist Distance (Feet) 70 Able to Maintain Weight Bearing Status Yes During Gait Assistive Devices Assistive Device Gait Belt Front Wheeled Walker Orthotic/Prosthetic Devices or Brace: No Gait Deviations General Gait Pattern Decreased Stride Length Decreased Feet Clearance Flexed Trunk Factors Limiting Gait Function Factors Limiting Gait Function Decreased Activity Tolerance Decreased Strength Limited Range of Motion Pain Poor Balance Poor Safety Awareness Comments Gait Comments Pt ambulated ~70ft CGA with assist with lines. M5 PT-IP Objective Assessments Start: 06/14/18 10:27 Freq: NEEDED Status: Active Protocol: Document 06/14/18 10:27 LRH (Rec: 06/14/18 10:33 [facility]H [id number]) Orientation Orientation/Cognition Level of Alertness Lethargic Strength Lower Extremity Strength Assessment Bilaterally Impaired M6 PT-IP Treatment Start: 06/14/18 10:27 Freq: NEEDED Status: Active Protocol: Document 06/16/18 11:20 RCC (Rec: 06/16/18 11:40 RCC [id number]) Physical Therapy Treatment Education Education Provided Precautions M7 PT-IP Assessment and Plan Start: 06/14/18 10:27 Freq: NEEDED Status: Active Protocol: Document 06/19/18 11:25 CLB (Rec: 06/19/18 12:30 CLB [id number]) PT Summary Assessment and Plan Potential Rehabilitation Potential Good Summary Impairments Pain ROM Strength Balance Coordination Sensation Tone Cognition Bed Mobility Transfers Gait Activity Tolerance Progress Towards Goals Slow Progress due to Medical Issues Slow Progress due to Activity Tolerance Assessment Summary Pt improving with bed mobility requiring SBA with log roll and sit<>supine. Pt ambulated ~70ft with CGA and assist with lines. Goals Bed Mobility Goal Independent Transfer Goal Independent Gait Goal Standby Assistance Gait Distance 200ft w/least restrictive device Other Goals up/down flight of stairs with 1 rail SBA Days to Meet Goals 6 Frequency of Treatment Frequency Of Treatment Twice a Day Treatment Plan Other Recommendations and Next Treatment progress gait as tolerated, Focus will need stair training prior to d/c. Recommendations To Nursing Amount of Assist Needed Standby Assistance Discharge Recommendations PT Discharge Recommendations Home with 24/7 Assist Home Health SNF Rehab Other Discharge Recommendations home with 24/7 and homehealth services vs SNF depending on progress
[2018-06-19] MEDS: ACETAMINOPHEN 650 MG SUPP PR (12:31)
[2018-06-19] MEDS: SODIUM CHLORIDE 0.9% 1,000 ML 21 ML IV (12:35)
[2018-06-19] MEDS: ENOXAPARIN 40 MG/0.4 ML SYRINGE SUBCUT (14:11)
--- NOTE | 2018-06-19 15:19 | PC.NURSE ---
Day Shift-Pt had temp range from 100.8-101.2F orally. Spoke with Dr. Levy at 1225, okay to give prn Tylenol supp. Plan for lab work in AM. Encourage OOB movement and IS use. Tylenol supp prn given at 1230. Recheck on temp was 99.0F. 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 Pt c/o headache around 1112 and prn Toradol given at that time with good effect. Abd incision at distal end slightly more pink, area marked with pen and evening RN aware. Incision well approximated with boyd intact. Gastrostomy tube to gravity per order and shift total was approx 150mls of yellow/brown fluid, at times had a green ting. Pt aware of plan for abd XRAY in AM.
[2018-06-19] MEDS: FAT EMULSIONS 50 GM/250 ML EMULSION IV (18:31)
[2018-06-19] MEDS: CALCIUM IV (18:31)
[2018-06-19] MEDS: POTASSIUM CHLORIDE IV (18:31)
[2018-06-19] MEDS: LYTES IV (18:31)
[2018-06-19] MEDS: DEXT IV (18:31)
[2018-06-19] MEDS: [UNRECOGNIZED DRUG - OTHER] IV (18:31)
[2018-06-20] VITALS (10 sets, daily range): BP systolic 122–163; BP diastolic 58–87; PULSE 97–109; RESP 17–20; TEMP 37–37.7; O2SAT 92–98
--- NOTE | 2018-06-20 | DI.RAD.S_ITS ---
PROCEDURE: XR ABDOMEN 3V INDICATIONS: abdominal pain and fever after laparotomy TECHNIQUE: One view chest and two views of the abdomen were acquired. COMPARISON: [facility], CR, XR ABDOMEN MIN 2V, 06/08/2018, 17:55. [facility], CR, XR ABDOMEN MIN 2V, 05/06/2018, 6:31. [facility], CR, XR CHEST 1V, 06/09/2018, 20:44. [facility], CR, XR ABDOMEN 3V, 06/09/2018, 5:51. FINDINGS: Surgical changes and devices: Interval visualization of laparotomy boyd. Left PICC present with the tip projected over the mid superior vena cava. Chest: Lungs are clear. Heart size is normal. No pleural effusions. No pneumoperitoneum. Abdomen: Abnormal bowel gas pattern is present. Asymmetric dilatation of small bowel throughout the abdomen and pelvis with paucity of gas within the colon. Short air-fluid levels present. No pneumatosis or bowel wall thickening. No pneumoperitoneum. Bones: No suspicious bony lesions. IMPRESSION: 1. Persistent bowel distention with associated air fluid levels consistent with small bowel obstruction versus likely ileus. Findings were discussed with Dr. Levy telephonically at 1130 hrs on 06/20/2018. Dictated by: Alfonso Figueroa [facility] Interpreted: Negrito Hanna MD on 06/20/2018 at 9:13 Approved by: Negrito Hanna M.D. on 06/20/2018 at 11:31
[2018-06-20] MEDS: ONDANSETRON 4 MG/2 ML INJ IV (02:14)
[2018-06-20] MEDS: LORazepam 2 MG/ML SYRINGE 1 MG IV ×3 (02:21→16:08)
[2018-06-20] MEDS: HYDROMORPHONE PCA 6 MG/30 ML PCA.VIAL IV ×3 (05:39→23:10)
[2018-06-20 05:53] LABS: Add Manual Diff / Slide Review NO; Basophils Percent Auto 0.3 % (0-2); Eosinophils Percent Auto 0.6 % (2-4); Hematocrit 25.5 % (36-46); Hemoglobin 8.7 g/dL (12.0-16.0); Lymphocytes Percent Auto 9.5 % (25-40); Mean Corpuscular HGB Conc 33.9 % (30-36); Mean Corpuscular Volume 85.5 fL (80-100); Monocytes Percent Auto 8.8 % (3-14); Neutrophils Absolute Auto 10700 /uL (1500-7000); Neutrophils Percent Auto 80.8 % (50-75); Platelet Count 395 X10^3/uL (150-400); Red Blood Cell Count 2.99 X10^6/uL (4.0-5.2); Red Cell Distribution Width 15.1 % (11.6-14.8); White Blood Cell Count 13.3 X10^3/uL (4.5-11.0)
[2018-06-20 06:16] LABS: Alanine Aminotransferase 32 IU/L (9-52); Albumin 2.8 g/dL (3.5-5.0); Albumin Globulin Ratio 0.9 (1.0-2.8); Alkaline Phosphatase 110 U/L (38-126); Aspartate Aminotransferase 32 IU/L (14-36); Bilirubin Total 0.4 mg/dL (0.2-1.3); Blood Urea Nitrogen 12 mg/dL (7-17); Calcium 8.4 mg/dL (8.4-10.2); Carbon Dioxide 28 mmol/L (22-32); Chloride 97 mmol/L (98-107); Estimated Glomerular Filt Rate > 60.0 mL/min (>60); Globulin 3.2 g/dL (1.7-4.1); Glucose 124 mg/dL (70-100); HEMOLYSIS < 15 (0-50); Potassium 4.7 mmol/L (3.4-5.1); Sodium 134 mmol/L (137-145)
--- NOTE | 2018-06-20 08:28 | PC.NURSE ---
Dr. Levy in to see pt and removed lower incisional boyd.
[2018-06-20] MEDS: CEFAZOLIN 1 GM/50 ML FROZ.PIGGY IV ×2 (09:40→19:19)
[2018-06-20] MEDS: PANTOPRAZOLE 40 MG VIAL IV (09:40)
--- NOTE | 2018-06-20 11:30 | PT.IPTN ---
Current Diagnoses Intestinal adhesions [bands], unspecified as to partial versus complete obstruction (06/08/18) Surgery Performed Operation Date: 06/13/18 13:15 Actual Procedures p Exploratory Laparotomy, LYSIS OF ADHESIONS, Placement of gastrostomy tube(Not Applicable) - Tate Levy MD Physical Therapy Treatment Note M2 PT-IP Current Condition Start: 06/14/18 10:27 Freq: NEEDED Status: Active Protocol: Document 06/14/18 10:27 [facility] (Rec: 06/14/18 10:33 [facility] [email or web address]) Physical Therapy Current Condition Current Condition Evaluation Date 04/26/18 Treatment Diagnosis s/p exploratory laporotomy, weakness Precautions Abdominal Surgery Precautions Log Roll Lifting Restrictions Gait Belt above Incisional Area Weight Bearing Status Weight Bearing Status Full Weight Bearing M3 PT-IP Subjective Start: 06/14/18 10:27 Freq: NEEDED Status: Active Protocol: Document 06/20/18 11:24 [facility] (Rec: 06/20/18 11:30 GGD [id number]) Subjective Physical Therapy Visit Type Type Treatment Note Visit Start Time 11:00 Visit Stop Time 11:20 Total Visit Minutes 20 Number of LOGISTICS SUPPORT Visits 3 Physical Therapy Visit Comments Patient Comments Pt wants to shower after walking. M4 PT-IP Mobility and Gait Start: 06/14/18 10:27 Freq: NEEDED Status: Active Protocol: Document 06/20/18 11:24 GGD (Rec: 06/20/18 11:30 GGD [id number]) PT-Bed Mobility Assessment Rolling Type of Rolling Log Rolling Roll to Left Level of Assist Standby Assistance Supine to Sit Supine to Sit Standby Assistance Bedrails Scooting Scooting to Edge of Bed Standby Assistance Scooting Up and Down in Bed Standby Assistance PT-Transfer Assessment Sit to and From Stand Sit to and from Stand Standby Assistance 1 Person Assistance Use of Upper Extremities Equipment Transfer Assistive Device Front Wheeled Walker Orthotic/Prosthetic Devices or Brace: No Transfers Transfer Destination Bedside Commode Transfer Ability Level of Assist Standby Assistance Comments Mobility Comments RN in room with pt to assist with shower. Gait Assessment Gait Gait Assistance Required: Standby Assistance Distance (Feet) 180 Able to Maintain Weight Bearing Status Yes During Gait Assistive Devices Assistive Device Gait Belt Front Wheeled Walker Orthotic/Prosthetic Devices or Brace: No Gait Deviations General Gait Pattern Decreased Stride Length Decreased Feet Clearance Flexed Trunk Factors Limiting Gait Function Factors Limiting Gait Function Decreased Activity Tolerance Decreased Strength Limited Range of Motion Pain Comments Gait Comments min cues and assist with lines M5 PT-IP Objective Assessments Start: 06/14/18 10:27 Freq: NEEDED Status: Active Protocol: Document 06/14/18 10:27 [facility] (Rec: 06/14/18 10:33 [facility] [email or web address]) Orientation Orientation/Cognition Level of Alertness Lethargic Strength Lower Extremity Strength Assessment Bilaterally Impaired M6 PT-IP Treatment Start: 06/14/18 10:27 Freq: NEEDED Status: Active Protocol: Document 06/16/18 11:20 [facility] (Rec: 06/16/18 11:40 [facility] [id number]) Physical Therapy Treatment Education Education Provided Precautions M7 PT-IP Assessment and Plan Start: 06/14/18 10:27 Freq: NEEDED Status: Active Protocol: Document 06/20/18 11:24 GGD (Rec: 06/20/18 11:30 GGD [id number]) PT Summary Assessment and Plan Summary Assessment Summary Pt improving with mobility. She SBA for bed mobility with the use of rails. She is slow gait pace, but able to progress her distance. She needs FWW for pain control and mild unsteadiness with gait. Frequency of Treatment Frequency Of Treatment Twice a Day Treatment Plan Physical Therapy Treatment Plan Bed Mobility Training Transfer Training Gait Training Therapeutic Exercise Balance Retraining Post Op Education Discharge Planning Other Recommendations and Next Treatment progress gait as tolerated, Focus will need stair training prior to d/c. Recommendations To Nursing Amount of Assist Needed Independent Discharge Recommendations PT Discharge Recommendations Home with Assistance Home with 02/01 Assist Home Health Equipment Needed for Home Before may need FWW if D/C home Discharge
--- NOTE | 2018-06-20 11:39 | CM.DPC ---
DCP/continued: Reviewed notes. Patient continues on TPN. MD requesting better compliance with ambulation. Slow prolonged recovery expected. CM team to continue to follow closely and monitor for d/c planning needs. Spoke with PT this AM and they report that they are following and that patient actively participated today. P: Pending outcome of hospitalization. Follow closely. BRENDAN Lan
[2018-06-20] MEDS: CLINDAMYCIN 600 MG/50 ML PIGGYBACK 50 MG IV ×2 (11:56→19:36)
--- NOTE | 2018-06-20 12:39 | P.PN_ITS ---
Subjective Date Patient Seen: 06/20/18 Time Patient Seen: 08:32 Interval history: Patient continues to complain of fatigue and incisional pain. No current fever or chills. No chest pain or shortness of breath. No appetite. Tolerating only a few sips of clear liquids here or there but did have to decompress her gastrostomy tube last evening due to subjective epigastric distention. No significant nausea this morning. No vomiting. Denies flatus or bowel function. No dysuria or hematuria. Ambulating intermittently. Exam Vital Signs (past 8 hours): - 06/20/18 08:00 06/20/18 09:10 06/20/18 11:00 Temperature 100 F H 99.5 F Pulse Rate 109 H 105 H Respiratory Rate 20 20 Blood Pressure 145/84 H 131/79 Pulse Oximetry 96 95 92 06/20/18 12:06 Temperature Pulse Rate Respiratory Rate Blood Pressure Pulse Oximetry 96 Oxygen Delivery Method Room Air Oxygen Flow Rate 0 Narrative Exam Narrative: Patient lying in bed in no acute distress. Alert oriented x3. She appears mildly uncomfortable however. Chest clear to auscultation bilaterally with regular rate and rhythm. No murmurs or gallops. Abdomen shows few hypoactive bowel sounds. She is mildly distended and slightly tympanitic in the epigastric region. She is appropriately tender without guarding or rebound but she does have some moderate tenderness in the upper aspect of the incision. The incision itself remains somewhat erythematous , especially at the umbilical area inferiorly. I removed several boyd at the bedside which she tolerated well. There was immediate expression with palpation of turbid fluid. Extremities show no clubbing or cyanosis Objective Labs Result Diagrams: 06/20/18 05:31 06/20/18 05:31 Labs: Laboratory Results - last 24 hr 06/20/18 06/20/18 05:31 05:31 WBC 13.3 H RBC 2.99 L Hgb 8.7 L Hct 25.5 L MCV 85.5 MCH 29.0 MCHC 33.9 RDW 15.1 H Plt Count 395 Neut % (Auto) 80.8 H Lymph % (Auto) 9.5 L [place] % (Auto) 8.8 Eos % (Auto) 0.6 L Baso % (Auto) 0.3 Neut # (Auto) 13927 H Sodium 134 L Potassium 4.7 Chloride 97 L Carbon Dioxide 28 BUN 12 Creatinine 0.60 Estimated GFR > 60.0 BUN/Creatinine Ratio 20.0 Glucose 124 H Calcium 8.4 Total Bilirubin 0.4 AST 32 ALT 32 Alkaline Phosphatase 110 Total Protein 6.0 L Albumin 2.8 L Globulin 3.2 Albumin/Globulin Ratio 0.9 L Three view abdominal series is done this morning and reviewed with the radiologist. She has ongoing dilated loops of small bowel with some air-fluid levels. There is stool and air in the colon however. No free air under the diaphragm. No pulmonary infiltrates. Assessment & Plan Plan: Assessment/Plan Narrative: 53-year-old female now postoperative day 7 from laparotomy with lysis of adhesions for recurrent high-grade small-bowel obstruction now with superficial wound infection. I will restart her antibiotics after decompressing the wound today. I advised her that she may even require further opening of the wound in packing such as wet-to-dry dressing changes. Because of her penicillin allergy I ordered clindamycin and cefazolin. She has tolerated cephalosporins in the past without issue. Maintain TPN. Electrolytes appear unremarkable. Small leukocytosis which I suspect is secondary to the wound infection. I believe this is the source of her fever also. Encourage pulmonary toilet and aggressive ambulation. I discussed with her the likelihood that she requires long-term TPN at home once she is out of the hospital with gastric tube decompression. I suspect she may require supplemental nutrition in that form for a number of months. She continues to show evidence of partial bowel obstruction. This is not unanticipated given the surgical findings. I will need to address long-term IV access, which may necessitate port insertion in the OR. Will also need to convert from intravenous analgesics to some form of oral and /or topical analgesics. This may take some time to institute since she has a relatively low pain tolerance and high anxiety level. She will also need home health services at discharge. Nevertheless I do not anticipate discharge for at least another week or so until the above issues could be resolved and addressed. Orders were written.
--- NOTE | 2018-06-20 15:12 | PT.IPTN ---
Current Diagnoses Intestinal adhesions [bands], unspecified as to partial versus complete obstruction (06/08/18) Surgery Performed Operation Date: 06/13/18 13:15 Actual Procedures p Exploratory Laparotomy, LYSIS OF ADHESIONS, Placement of gastrostomy tube(Not Applicable) - Tate Levy MD Physical Therapy Treatment Note M2 PT-IP Current Condition Start: 06/14/18 10:27 Freq: NEEDED Status: Active Protocol: Document 06/14/18 10:27 [facility] (Rec: 06/14/18 10:33 [facility] [email or web address]) Physical Therapy Current Condition Current Condition Evaluation Date 04/26/18 Treatment Diagnosis s/p exploratory laporotomy, weakness Precautions Abdominal Surgery Precautions Log Roll Lifting Restrictions Gait Belt above Incisional Area Weight Bearing Status Weight Bearing Status Full Weight Bearing M3 PT-IP Subjective Start: 06/14/18 10:27 Freq: NEEDED Status: Active Protocol: Document 06/20/18 15:03 [facility] (Rec: 06/20/18 15:11 [facility] [email or web address]) Subjective Physical Therapy Visit Type Type Treatment Note Visit Start Time 14:40 Visit Stop Time 15:00 Total Visit Minutes 20 Number of SAND FILLER Visits 4 Physical Therapy Visit Comments Patient Comments Pt reports being very tired but agreeable to PT. Had shower this morning and feels better after. Therapy Pain Assessment Pain When Pain Assessed At Rest Pain Present Pain Present Denied Pain M4 PT-IP Mobility and Gait Start: 06/14/18 10:27 Freq: NEEDED Status: Active Protocol: Document 06/20/18 15:03 [facility] (Rec: 06/20/18 15:11 [facility] [email or web address]) PT-Bed Mobility Assessment Rolling Type of Rolling Log Rolling Roll to Left Level of Assist Standby Assistance Supine to Sit Supine to Sit Standby Assistance Bedrails Sit to Supine Sit to Supine Standby Assistance Head of Bed Elevated Bedrails Scooting Scooting to Edge of Bed Standby Assistance Scooting Up and Down in Bed Standby Assistance PT-Transfer Assessment Sit to and From Stand Sit to and from Stand Standby Assistance 1 Person Assistance Use of Upper Extremities Equipment Transfer Assistive Device Gait Belt Front Wheeled Walker Orthotic/Prosthetic Devices or Brace: No Transfers Transfer Destination Bed Transfer Technique Stand Step Pivot Transfer Ability Level of Assist Standby Assistance Comments Mobility Comments Pt SBA with all mobilities, uses FWW safely, fatigues rapidly with poor activity tolerance. Gait Assessment Gait Gait Assistance Required: Standby Assistance Distance (Feet) 180 Able to Maintain Weight Bearing Status Yes During Gait Assistive Devices Assistive Device Gait Belt Front Wheeled Walker Orthotic/Prosthetic Devices or Brace: No Gait Deviations General Gait Pattern Decreased Stride Length Decreased Feet Clearance Flexed Trunk Factors Limiting Gait Function Factors Limiting Gait Function Decreased Activity Tolerance Decreased Strength Limited Range of Motion Comments Gait Comments SBA for gait with min cues for safety and management of IV pole. Pt manages FWW wel with turning and in high traffic areas. Very fatigued by end of walk. M5 PT-IP Objective Assessments Start: 06/14/18 10:27 Freq: NEEDED Status: Active Protocol: Document 06/14/18 10:27 [facility] (Rec: 06/14/18 10:33 [facility] [id number]) Orientation Orientation/Cognition Level of Alertness Lethargic Strength Lower Extremity Strength Assessment Bilaterally Impaired M6 PT-IP Treatment Start: 06/14/18 10:27 Freq: NEEDED Status: Active Protocol: Document 06/20/18 15:03 [facility] (Rec: 06/20/18 15:11 [facility] [email or web address]) Physical Therapy Treatment Exercises Exercises Ankle Pumps Quad Sets Heel Slides Education Education Provided Safety M7 PT-IP Assessment and Plan Start: 06/14/18 10:27 Freq: NEEDED Status: Active Protocol: Document 06/20/18 15:03 [facility] (Rec: 06/20/18 15:11 [facility] [email or web address]) PT Summary Assessment and Plan Potential Rehabilitation Potential Good Summary Assessment Summary Pt progressing with functional mobility and gait, required decreased assistance and increasing activity grace. Min cues for safety. Frequency of Treatment Frequency Of Treatment Twice a Day Treatment Plan Other Recommendations and Next Treatment Stair training when less Focus fatigued, AM. Recommendations To Nursing Amount of Assist Needed Independent Discharge Recommendations PT Discharge Recommendations Home with Assistance Home with 02/01 Assist Home Health
[2018-06-20] MEDS: ENOXAPARIN 40 MG/0.4 ML SYRINGE SUBCUT (15:18)
[2018-06-20] MEDS: POTASSIUM CHLORIDE IV (17:59)
[2018-06-20] MEDS: DEXT IV (17:59)
[2018-06-20] MEDS: [UNRECOGNIZED DRUG - OTHER] IV (17:59)
[2018-06-20] MEDS: CALCIUM IV (17:59)
[2018-06-20] MEDS: LYTES IV (17:59)
--- NOTE | 2018-06-20 19:09 | PC.NURSE ---
Addendum entered by Meghana Resendiz R.N. 06/20/18 20:38: Resting at intervals throughout evening. TPN & IVF infusing via pump as per orders. Abd dsg intact at this time. Call light w/in reach, bed alarm on for pt safety Continue w/plan of care. . Original Note: Pt resting at intervals. BRANDON PICC intact/patent, TPN infusing as per orders. 1800 CBG = 102, IS to 1500, SpO2 96% RA Lungs clear/diminished at bases. asisted to BR w/i incidence. Lower abdominal dsg changed due to satuartion yellowish fluid. Stable post op course.
[2018-06-21] VITALS (7 sets, daily range): BP systolic 118–131; BP diastolic 67–84; PULSE 83–94; RESP 16–18; TEMP 36.5–37.3; O2SAT 94–99
[2018-06-21] MEDS: LORazepam 2 MG/ML SYRINGE 1 MG IV ×2 (01:46→18:23)
[2018-06-21] MEDS: CEFAZOLIN 1 GM/50 ML FROZ.PIGGY IV ×3 (01:51→17:39)
[2018-06-21] MEDS: CLINDAMYCIN 600 MG/50 ML PIGGYBACK 50 MG IV ×3 (03:08→18:25)
[2018-06-21] MEDS: HYDROMORPHONE PCA 6 MG/30 ML PCA.VIAL IV ×2 (06:21→14:16)
--- NOTE | 2018-06-21 07:58 | PC.NURSE ---
Patient up to use BRP. CDI became totally saturated, spilling out yellow clear drainage. Washed site after removing dressing, re dressed. Area around site reddened, warm.
[2018-06-21] MEDS: PANTOPRAZOLE 40 MG VIAL IV (08:53)
--- NOTE | 2018-06-21 09:26 | PM.PN.1 ---
Subjective Date Patient Seen: 06/21/18 Time Patient Seen: 09:26 Interval history: Patient is feeling somewhat unwell this morning. Nursing staff also concerned with some somnolence per their report this morning. Patient otherwise has had low grade fever and increased wound drainage. Patient currently denies any significant abdominal pain, chest pain, or shortness of breath. Exam Vital Signs (past 8 hours): - 06/21/18 06:13 06/21/18 07:52 Temperature 99.0 F 99.1 F Pulse Rate 93 H 92 H Respiratory Rate 18 16 Blood Pressure 131/84 125/70 Pulse Oximetry 96 94 Oxygen Delivery Method Room Air Oxygen Flow Rate 0 Narrative Exam Narrative: Patient lying comfortably in bed in no acute distress. Alert and oriented x3 but remains somnolent which is no different than her previous examination since surgery. She is easily arousable and converses normally. She shows no signs of confusion. Temperature currently 99.1?. No tachycardia. Blood pressure stable. Urine output has been excellent overnight. No bowel function per patient's report. No crackles or wheezes Abdomen is soft and mildly distended. The erythema around the wound remains essentially stable. However, she does have evidence of purulent and almost fecal in drainage. I therefore removed the remaining boyd at the inferior aspect of the entire incision from the umbilicus inferiorly. There was immediate expression of more purulent fluid. 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 Areas otherwise clean. No necrotic tissue. No evidence of fasciitis or significant cellulitis. Superior aspect of the wound remains clean and intact. Extremities show no clubbing or cyanosis Objective Labs Result Diagrams: 06/20/18 05:31 06/20/18 05:31 Labs: No new laboratory radiographic studies for review today. 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 Wound is been adequately opened and wet-to-dry dressing changes will be instituted today. I placed the 1st dressing myself this morning. Continue Ancef and clindamycin. Fluid was sent for culture. Repeat laboratory studies tomorrow. Continue TPN. I suspect she will need this long-term. I believe she would be adequately served with a PICC line long-term that can be changed as needed over the course of her TPN requirements. Currently we will return the gastrostomy tube to gravity drainage and allow her clear liquid diet while the fistula matures. At some point she is likely to require an ostomy appliance to collect the drainage. I discussed all this with her and the nursing staff this morning. She may be out of bed and continue activity otherwise as tolerated since there is no evidence of dehiscence. We will consult the ostomy nurse to assist with wound care and eventual control of the fistula with the appliance as above. I reviewed her case with discharge coordinators as well for home TPN and home nursing care which she will clearly require. However, she will be here in the hospital least for another week or so by my estimation for the above care. Again, this was discussed with the patient at length. All questions were answered to her satisfaction, and she voiced understanding. Orders were written.
--- NOTE | 2018-06-21 11:10 | PT.IPTN ---
Current Diagnoses Intestinal adhesions [bands], unspecified as to partial versus complete obstruction (06/08/18) Surgery Performed Operation Date: 06/13/18 13:15 Actual Procedures p Exploratory Laparotomy, LYSIS OF ADHESIONS, Placement of gastrostomy tube(Not Applicable) - Tate Levy MD Physical Therapy Treatment Note M2 PT-IP Current Condition Start: 06/14/18 10:27 Freq: NEEDED Status: Active Protocol: Document 06/14/18 10:27 [facility] (Rec: 06/14/18 10:33 [facility] [email or web address]) Physical Therapy Current Condition Current Condition Evaluation Date 04/26/18 Treatment Diagnosis s/p exploratory laporotomy, weakness Precautions Abdominal Surgery Precautions Log Roll Lifting Restrictions Gait Belt above Incisional Area Weight Bearing Status Weight Bearing Status Full Weight Bearing M3 PT-IP Subjective Start: 06/14/18 10:27 Freq: NEEDED Status: Active Protocol: Document 06/21/18 11:10 [facility]GD (Rec: 06/21/18 11:46 GGD [id number]) Subjective Physical Therapy Visit Type Type Treatment Note Visit Start Time 10:55 Visit Stop Time 11:10 Total Visit Minutes 15 Number of SUPERVISOR TELEPHONE ANSWERING SERVICE Visits 5 Physical Therapy Visit Comments Patient Comments Pt states she needs to use the bathroom. Therapy Pain Assessment Pain When Pain Assessed At Rest Pain Present Pain Present Pain Reported M4 PT-IP Mobility and Gait Start: 06/14/18 10:27 Freq: NEEDED Status: Active Protocol: Document 06/21/18 11:10 GGD (Rec: 06/21/18 11:46 GGD [id number]) PT-Bed Mobility Assessment Rolling Type of Rolling Log Rolling Roll to Left Level of Assist Standby Assistance Supine to Sit Supine to Sit Standby Assistance Bedrails Sit to Supine Sit to Supine Standby Assistance Bedrails Scooting Scooting to Edge of Bed Standby Assistance Scooting Up and Down in Bed Standby Assistance PT-Transfer Assessment Sit to and From Stand Sit to and from Stand Standby Assistance 1 Person Assistance Use of Upper Extremities Equipment Transfer Assistive Device Gait Belt Front Wheeled Walker Orthotic/Prosthetic Devices or Brace: No Transfers Transfer Destination Bed Toilet Transfer Ability Level of Assist Standby Assistance Gait Assessment Gait Gait Assistance Required: Standby Assistance Distance (Feet) 20 Able to Maintain Weight Bearing Status Yes During Gait Assistive Devices Assistive Device Gait Belt Front Wheeled Walker Orthotic/Prosthetic Devices or Brace: No Gait Deviations General Gait Pattern Decreased Stride Length Decreased Feet Clearance Flexed Trunk Factors Limiting Gait Function Factors Limiting Gait Function Decreased Activity Tolerance Decreased Strength Limited Range of Motion Comments Gait Comments Pt had increase in drainage with mobility. RN informed. M5 PT-IP Objective Assessments Start: 06/14/18 10:27 Freq: NEEDED Status: Active Protocol: Document 06/14/18 10:27 [facility] (Rec: 06/14/18 10:33 [facility] [email or web address]) Orientation Orientation/Cognition Level of Alertness Lethargic Strength Lower Extremity Strength Assessment Bilaterally Impaired M6 PT-IP Treatment Start: 06/14/18 10:27 Freq: NEEDED Status: Active Protocol: Document 06/20/18 15:03 [facility] (Rec: 06/20/18 15:11 [facility] [email or web address]) Physical Therapy Treatment Exercises Exercises Ankle Pumps Quad Sets Heel Slides Education Education Provided Safety M7 PT-IP Assessment and Plan Start: 06/14/18 10:27 Freq: NEEDED Status: Active Protocol: Document 06/21/18 11:10 [facility] (Rec: 06/21/18 11:46 GGD [id number]) PT Summary Assessment and Plan Summary Assessment Summary Pt ambulation was limited due to increase in drainage. She is improving with bed mobility and tolerance to activity. Treatment Plan Physical Therapy Treatment Plan Bed Mobility Training Transfer Training Gait Training Therapeutic Exercise Balance Retraining Post Op Education Discharge Planning Recommendations To Nursing Amount of Assist Needed Standby Assistance Discharge Recommendations PT Discharge Recommendations Home with Assistance Home with 24/7 Assist Home Health Equipment Needed for Home Before may need FWW if D/C home Discharge
--- NOTE | 2018-06-21 14:05 | PT.IPTN ---
Current Diagnoses Intestinal adhesions [bands], unspecified as to partial versus complete obstruction (06/08/18) Surgery Performed Operation Date: 06/13/18 13:15 Actual Procedures p Exploratory Laparotomy, LYSIS OF ADHESIONS, Placement of gastrostomy tube(Not Applicable) - Tate Levy MD Physical Therapy Treatment Note M2 PT-IP Current Condition Start: 06/14/18 10:27 Freq: NEEDED Status: Active Protocol: Document 06/14/18 10:27 [facility] (Rec: 06/14/18 10:33 [facility] [id number]) Physical Therapy Current Condition Current Condition Evaluation Date 04/26/18 Treatment Diagnosis s/p exploratory laporotomy, weakness Precautions Abdominal Surgery Precautions Log Roll Lifting Restrictions Gait Belt above Incisional Area Weight Bearing Status Weight Bearing Status Full Weight Bearing M3 PT-IP Subjective Start: 06/14/18 10:27 Freq: NEEDED Status: Active Protocol: Document 06/21/18 14:05 GGD (Rec: 06/21/18 14:53 GGD [id number]) Subjective Physical Therapy Visit Type Type Treatment Note Visit Start Time 13:50 Visit Stop Time 14:05 Total Visit Minutes 15 Number of FUR DESIGNER Visits 6 Physical Therapy Visit Comments Patient Comments Pt states she is willing to walk. Therapy Pain Assessment Pain When Pain Assessed At Rest Pain Present Pain Present Pain Reported M4 PT-IP Mobility and Gait Start: 06/14/18 10:27 Freq: NEEDED Status: Active Protocol: Document 06/21/18 14:05 GGD (Rec: 06/21/18 14:53 GGD [id number]) PT-Bed Mobility Assessment Rolling Type of Rolling Log Rolling Roll to Left Level of Assist Standby Assistance Supine to Sit Supine to Sit Standby Assistance Bedrails Sit to Supine Sit to Supine Standby Assistance Bedrails Scooting Scooting to Edge of Bed Standby Assistance PT-Transfer Assessment Sit to and From Stand Sit to and from Stand Standby Assistance 1 Person Assistance Use of Upper Extremities Equipment Transfer Assistive Device Gait Belt Front Wheeled Walker Orthotic/Prosthetic Devices or Brace: No Transfers Transfer Destination Bed Transfer Ability Level of Assist Standby Assistance Gait Assessment Gait Gait Assistance Required: Standby Assistance Distance (Feet) 200 Able to Maintain Weight Bearing Status Yes During Gait Assistive Devices Assistive Device Gait Belt Front Wheeled Walker Orthotic/Prosthetic Devices or Brace: No Gait Deviations General Gait Pattern Decreased Stride Length Decreased Feet Clearance Flexed Trunk Factors Limiting Gait Function Factors Limiting Gait Function Decreased Activity Tolerance Decreased Strength Limited Range of Motion M5 PT-IP Objective Assessments Start: 06/14/18 10:27 Freq: NEEDED Status: Active Protocol: Document 06/14/18 10:27 LR (Rec: 06/14/18 10:33 [facility] [email or web address]) Orientation Orientation/Cognition Level of Alertness Lethargic Strength Lower Extremity Strength Assessment Bilaterally Impaired M6 PT-IP Treatment Start: 06/14/18 10:27 Freq: NEEDED Status: Active Protocol: Document 06/20/18 15:03 SA (Rec: 06/20/18 15:11 SA [email or web address]) Physical Therapy Treatment Exercises Exercises Ankle Pumps Quad Sets Heel Slides Education Education Provided Safety M7 PT-IP Assessment and Plan Start: 06/14/18 10:27 Freq: NEEDED Status: Active Protocol: Document 06/21/18 14:05 GGD (Rec: 06/21/18 14:53 GGD [id number]) PT Summary Assessment and Plan Summary Assessment Summary Pt improving slowly. She is limited by pain, but able to progress gait. She is slow moving, and need rails for bed mobility. Frequency of Treatment Frequency Of Treatment Twice a Day Treatment Plan Physical Therapy Treatment Plan Bed Mobility Training Transfer Training Gait Training Therapeutic Exercise Balance Retraining Post Op Education Discharge Planning Other Recommendations and Next Treatment Stair training when less Focus fatigued, AM. Recommendations To Nursing Amount of Assist Needed Standby Assistance Discharge Recommendations PT Discharge Recommendations Home with Assistance Home with 24/7 Assist Home Health Equipment Needed for Home Before may need FWW if D/C home Discharge
[2018-06-21] MEDS: ENOXAPARIN 40 MG/0.4 ML SYRINGE SUBCUT (14:18)
[2018-06-21] MEDS: SODIUM CHLORIDE 0.9% 1,000 ML 21 ML IV (15:18)
--- NOTE | 2018-06-21 15:19 | PC.NURSE ---
Wound Care Note: Pt initially assessed with midline abdominal wound, approximated with boyd, areas of erythema in periwound tissue, indurated on inferior margin laterally along pannus. Periwound erythema margins marked with black pen. Wound with dressing saturated with brown/bilious looking drainage. Dr. Levy to bedside, discussed the association with the abdominal wound output with mobility and transfers OOB, and the frequence of saturating events, as well as pt's waxing and waning LOC (pt becomes groggy/somnolent periodically with cycling fevers and heat flashes/sweating). Dr. Levy removed boyd on the inferior portion of the wound with a large amount of brown output gushing out. A squelching air release sound was also noted with the wound, Dr. Levy and Dr. Mcgowan at bedside, discussed likelihood of the drainage being a result of a fistula. Orders received to place g-tube to drainage, send wound for culture, and wet to dry dressing to be changed daily and prn. Dressing changed by MD at bedside, but when pt mobilized, the dressing saturated and wet through to legs immediately. Pt cleaned up and dressing changed again. PT attempted to work with pt later in morning, but was unable to continue d/t quantity of drainage and leakage. This RN changed dressing again, cleansed periwound tissue with saline and gauze, dried and applied skin protectant wipe/film, then applied barrier ointment over skin protectant film. Wound packed with saline moistened gauze squeezed to barely moist, ABD pads placed on top. Affixed with 2 inch silk tape. To walk, a pink (small size) diaper was tucked under pannus across abdomen, mesh panties to hold in place and a depends over the top to control leaking. logistics support consulted and to see pt on evening shift.
[2018-06-21] MEDS: KETOROLAC 15 MG/ML VIAL IV (15:45)
[2018-06-21 17:37] LABS: Estimated Glomerular Filt Rate > 60.0 mL/min (>60)
[2018-06-21] MEDS: FAT EMULSIONS 50 GM/250 ML EMULSION IV (18:14)
[2018-06-21] MEDS: CALCIUM IV (18:15)
[2018-06-21] MEDS: LYTES IV (18:15)
[2018-06-21] MEDS: DEXT IV (18:15)
[2018-06-21] MEDS: [UNRECOGNIZED DRUG - OTHER] IV (18:15)
[2018-06-21] MEDS: POTASSIUM CHLORIDE IV (18:15)
[2018-06-21] MEDS: GENTAMICIN 110 MG in SODIUM CHLORIDE 0.9% 100 ML 102.75 ML IV (19:33)
--- NOTE | 2018-06-21 22:17 | PC.NURSE ---
STEPHANY SHIFT- Patient tolerating nursing procedures this shift. Drainage from abdominal wound decreased while patient lying in bed flat. With movement fluid gushes from lower abdominal wound. Dr. Levy at bedside to assess patient and redressed wound. Dr. Levy concerned with skin breakdown. Wound care nurse Adelita at bedside to assess and address patient wound. Wound care at patient bedside for an hour, occlusive dressing applied by wound care with new collection bags for wound drainage at proximal and distal ends of incision. Patient medicated with ativan for anxiety during this procedure. Patient tolerated procedure better with medication. Patient has slept most of the shift after wound care at bedside.
[2018-06-22] VITALS (11 sets, daily range): BP systolic 96–153; BP diastolic 54–76; PULSE 87–96; RESP 15–18; TEMP 36.7–37.6; O2SAT 93–97
[2018-06-22] MEDS: LORazepam 2 MG/ML SYRINGE 1 MG IV ×4 (00:22→23:46)
[2018-06-22] MEDS: CEFAZOLIN 1 GM/50 ML FROZ.PIGGY IV ×3 (02:09→18:01)
[2018-06-22] MEDS: CLINDAMYCIN 600 MG/50 ML PIGGYBACK 50 MG IV ×3 (02:41→20:07)
[2018-06-22] MEDS: GENTAMICIN 110 MG in SODIUM CHLORIDE 0.9% 100 ML 102.75 ML IV ×3 (04:17→19:03)
[2018-06-22 05:45] LABS: Add Manual Diff / Slide Review NO; Basophils Percent Auto 0.7 % (0-2); Eosinophils Percent Auto 3.2 % (2-4); Hematocrit 23.8 % (36-46); Hemoglobin 8.1 g/dL (12.0-16.0); Lymphocytes Percent Auto 18.7 % (25-40); Mean Corpuscular HGB Conc 33.8 % (30-36); Mean Corpuscular Hemoglobin 28.5 PG (26-34); Mean Corpuscular Volume 84.3 fL (80-100); Monocytes Percent Auto 11.5 % (3-14); Neutrophils Absolute Auto 5000 /uL (1500-7000); Neutrophils Percent Auto 65.9 % (50-75); Platelet Count 533 X10^3/uL (150-400); Red Blood Cell Count 2.82 X10^6/uL (4.0-5.2); Red Cell Distribution Width 15.8 % (11.6-14.8); White Blood Cell Count 7.6 X10^3/uL (4.5-11.0)
[2018-06-22 05:50] LABS: BUN Creatinine Ratio 17.1 (6-22); Blood Urea Nitrogen 12 mg/dL (7-17); Calcium 8.4 mg/dL (8.4-10.2); Carbon Dioxide 28 mmol/L (22-32); Chloride 96 mmol/L (98-107); Estimated Glomerular Filt Rate > 60.0 mL/min (>60); Glucose 106 mg/dL (70-100); HEMOLYSIS < 15 (0-50); Magnesium 1.9 mg/dL (1.6-2.3); Phosphorous 6.3 mg/dL (2.5-4.5); Potassium 4.7 mmol/L (3.4-5.1); Sodium 134 mmol/L (137-145)
[2018-06-22] MEDS: HYDROMORPHONE PCA 6 MG/30 ML PCA.VIAL IV ×3 (06:03→22:34)
[2018-06-22] MEDS: PANTOPRAZOLE 40 MG VIAL IV (09:04)
--- NOTE | 2018-06-22 09:47 | PC.NURSE ---
Wound Ostomy Consult note with Dr. Diego 06/21/18 Dr. Diego and I saw in the [facility]. We discussed a wound care/fistula treatment plan of care. 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 We discussed containing the fistula drainage and prevention of skin breakdown from the drainage. We also discussed possible use of using a KCI negative pressure vacuum to help with wound closure and using a fistula pouching system to contain the fistula drainage. Dr. Diego and I assessed the wound and fistula. The wound measures 12.0x2.5x5.0cm. The incisional wound is full thickenss with a beefy red base. The edges are intact and there is some induration. Ms. Reyes is experience pain and is using her STONE GLUER. The wound has ileal drainage. The nursing staff states that when she gets up there is a high volume of drainage that saturates the lower aspect of the dressing and even drains into a brief that she wears to contain the drainage. Dr. Diego and I can see some of this drainage coming out of the first staple proximal to the wound. There are several boyd attached proximal to the wound. Dr. Diego removed one staple where the fistula was draining so that we could put a fistula pouch on it. Dressing used: Cleaned skin with foaming soap and a warm wet wash cloth. Then dried pako-wound skin. Applied skin barrier wipe. Then used an Will ring around the edge of the wound. Used a red milton wrapped in kerlix and placed this in the bottom of the surgical wound. Then filled wound with kerlix. Placed a Will Fistula pouch [id number] around drainage were staple was removed. Then used a KCI drape and covered the wound. Anchored the red milton to her leg and attached a wallis drainage bag. We had Ms. Reyes stand and noticed that the lower aspect of the wound dressing was becoming saturated so we cut a hole in the drape at the lower aspect of the wound and place a flat one piece drainable urostomy pouching appliance to capture the drainage, since it seemed that there was not drainage collecting into the red milton. We will return tomorrow afternoon to assess the integrity of the dressing and the patients comfort level with this dressing.
--- NOTE | 2018-06-22 10:35 | PT.IPTN ---
Current Diagnoses Intestinal adhesions [bands], unspecified as to partial versus complete obstruction (06/08/18) Surgery Performed Operation Date: 06/13/18 13:15 Actual Procedures p Exploratory Laparotomy, LYSIS OF ADHESIONS, Placement of gastrostomy tube(Not Applicable) - Tate Levy MD Physical Therapy Treatment Note M2 PT-IP Current Condition Start: 06/14/18 10:27 Freq: NEEDED Status: Active Protocol: Document 06/14/18 10:27 LR (Rec: 06/14/18 10:33 [facility] [id number]) Physical Therapy Current Condition Current Condition Evaluation Date 04/26/18 Treatment Diagnosis s/p exploratory laporotomy, weakness Precautions Abdominal Surgery Precautions Log Roll Lifting Restrictions Gait Belt above Incisional Area Weight Bearing Status Weight Bearing Status Full Weight Bearing M3 PT-IP Subjective Start: 06/14/18 10:27 Freq: NEEDED Status: Active Protocol: Document 06/22/18 10:35 GGD (Rec: 06/22/18 11:39 GGD [email or web address]) Subjective Physical Therapy Visit Type Type Treatment Note Visit Start Time 10:20 Visit Stop Time 10:35 Total Visit Minutes 15 Number of PLASTER MAKER Visits 7 Physical Therapy Visit Comments Patient Comments Pt states she needs to use the bathroom. Therapy Pain Assessment Pain When Pain Assessed At Rest Pain Present Pain Present Pain Reported Location Bilateral Lower Abdomen Intensity 6 Scale Used Numeric (1 - 10) M4 PT-IP Mobility and Gait Start: 06/14/18 10:27 Freq: NEEDED Status: Active Protocol: Document 06/22/18 10:35 GGD (Rec: 06/22/18 11:39 GGD [email or web address]) PT-Bed Mobility Assessment Rolling Type of Rolling Log Rolling Roll to Left Level of Assist Standby Assistance Supine to Sit Supine to Sit Standby Assistance Bedrails Sit to Supine Sit to Supine Standby Assistance Bedrails Scooting Scooting to Edge of Bed Standby Assistance PT-Transfer Assessment Sit to and From Stand Sit to and from Stand Standby Assistance 1 Person Assistance Use of Upper Extremities Equipment Transfer Assistive Device Gait Belt Front Wheeled Walker Orthotic/Prosthetic Devices or Brace: No Transfers Transfer Destination Bed Transfer Ability Level of Assist Standby Assistance Gait Assessment Gait Gait Assistance Required: Standby Assistance Distance (Feet) 230 Able to Maintain Weight Bearing Status Yes During Gait Assistive Devices Assistive Device Gait Belt Front Wheeled Walker Orthotic/Prosthetic Devices or Brace: No Gait Deviations General Gait Pattern Decreased Stride Length Decreased Feet Clearance Flexed Trunk Factors Limiting Gait Function Factors Limiting Gait Function Decreased Activity Tolerance Decreased Strength Limited Range of Motion M5 PT-IP Objective Assessments Start: 06/14/18 10:27 Freq: NEEDED Status: Active Protocol: Document 06/14/18 10:27 [facility] (Rec: 06/14/18 10:33 [facility] [email or web address]) Orientation Orientation/Cognition Level of Alertness Lethargic Strength Lower Extremity Strength Assessment Bilaterally Impaired M6 PT-IP Treatment Start: 06/14/18 10:27 Freq: NEEDED Status: Active Protocol: Document 06/20/18 15:03 SA (Rec: 06/20/18 15:11 SA [email or web address]) Physical Therapy Treatment Exercises Exercises Ankle Pumps Quad Sets Heel Slides Education Education Provided Safety M7 PT-IP Assessment and Plan Start: 06/14/18 10:27 Freq: NEEDED Status: Active Protocol: Document 06/22/18 10:35 GGD (Rec: 06/22/18 11:39 GGD [email or web address]) PT Summary Assessment and Plan Summary Assessment Summary Pt improved tolerance to gait. She was able to progress gait distance, with fatigue after 200 feet. She had no unsteadiness, but did need use of FWW. She want's to D/C home when medically stable. Frequency of Treatment Frequency Of Treatment Twice a Day Treatment Plan Other Recommendations and Next Treatment Stair training before D/C home Focus . Recommendations To Nursing Amount of Assist Needed Standby Assistance Discharge Recommendations PT Discharge Recommendations Home with Assistance Home with 02/01 Assist Home Health Equipment Needed for Home Before may need FWW if D/C home Discharge
--- NOTE | 2018-06-22 14:02 | CM.DPC ---
Referral faxed to [facility]
[2018-06-22] MEDS: SODIUM CHLORIDE 0.9% 1,000 ML 21 ML IV (14:41)
--- NOTE | 2018-06-22 15:10 | PC.NURSE ---
Day Shift- Pt anxious this AM, ativan prn given at 0905 with good effect. CASTING MACHINE SET UP OPERATOR Dilaudid in place, settings 0.2//, no changes. Pt reports 4-12/19 aching pain to mid abd. States CASTING MACHINE SET UP OPERATOR effective pain management. Gastrostomy tube to gravity, output was 300mls. LLQ/mid abd drain with red tubing drained approx 50mls. Mid incision ostomy pouch covering midline incision had approx 10mls of light brown mush fluid. Lower midline ostomy pouch had small amount of sero-sang fluid from wound drainage. Pt tolerated water and had 1 grape popsicle with no nausea.
--- NOTE | 2018-06-22 15:27 | PT.IPTN ---
Current Diagnoses Intestinal adhesions [bands], unspecified as to partial versus complete obstruction (06/08/18) Surgery Performed Operation Date: 06/13/18 13:15 Actual Procedures p Exploratory Laparotomy, LYSIS OF ADHESIONS, Placement of gastrostomy tube(Not Applicable) - Tate Levy MD Physical Therapy Treatment Note M2 PT-IP Current Condition Start: 06/14/18 10:27 Freq: NEEDED Status: Active Protocol: Document 06/14/18 10:27 [facility] (Rec: 06/14/18 10:33 [facility] [email or web address]) Physical Therapy Current Condition Current Condition Evaluation Date 04/26/18 Treatment Diagnosis s/p exploratory laporotomy, weakness Precautions Abdominal Surgery Precautions Log Roll Lifting Restrictions Gait Belt above Incisional Area Weight Bearing Status Weight Bearing Status Full Weight Bearing M3 PT-IP Subjective Start: 06/14/18 10:27 Freq: NEEDED Status: Active Protocol: Document 06/22/18 15:27 AB (Rec: 06/22/18 18:12 AB [id number]) Subjective Physical Therapy Visit Type Type Treatment Note Visit Start Time 15:27 Visit Stop Time 15:47 Total Visit Minutes 20 Number of REVENUE AGENT Visits 0 Physical Therapy Visit Comments Patient Comments pt agreeable to ambulate. stated that she tries to increase ambulation distance everytime she walks. Therapy Pain Assessment Pain When Pain Assessed At Rest Pain Present Pain Present Pain Reported Location Bilateral Lower Abdomen Scale Used pain scale not stated Pain Management Techniques Timing of Activity with Medications M4 PT-IP Mobility and Gait Start: 06/14/18 10:27 Freq: NEEDED Status: Active Protocol: Document 06/22/18 15:27 AB (Rec: 06/22/18 18:12 AB [id number]) PT-Bed Mobility Assessment Supine to Sit Supine to Sit Standby Assistance Sit to Supine Sit to Supine Standby Assistance PT-Transfer Assessment Sit to and From Stand Sit to and from Stand Standby Assistance Equipment Transfer Assistive Device Gait Belt Front Wheeled Walker Orthotic/Prosthetic Devices or Brace: No Transfers Transfer Destination Toilet Transfer Technique pt ambulated to the toilet Transfer Ability Level of Assist Standby Assistance Comments Mobility Comments pt ambulated to the toilet using FWW SBA. required assist with hygiene care. Gait Assessment Gait Gait Assistance Required: Standby Assistance Distance (Feet) 325 Able to Maintain Weight Bearing Status Yes During Gait Assistive Devices Assistive Device Gait Belt Front Wheeled Walker Orthotic/Prosthetic Devices or Brace: No Gait Deviations General Gait Pattern Decreased Stride Length Decreased Feet Clearance Factors Limiting Gait Function Factors Limiting Gait Function Decreased Strength Limited Range of Motion Pain Poor Balance M5 PT-IP Objective Assessments Start: 06/14/18 10:27 Freq: NEEDED Status: Active Protocol: Document 06/14/18 10:27 [facility] (Rec: 06/14/18 10:33 [facility] [email or web address]) Orientation Orientation/Cognition Level of Alertness Lethargic Strength Lower Extremity Strength Assessment Bilaterally Impaired M6 PT-IP Treatment Start: 06/14/18 10:27 Freq: NEEDED Status: Active Protocol: Document 06/22/18 15:27 AB (Rec: 06/22/18 18:12 AB [id number]) Physical Therapy Treatment Education Education Provided Precautions Safety M7 PT-IP Assessment and Plan Start: 06/14/18 10:27 Freq: NEEDED Status: Active Protocol: Document 06/22/18 15:27 AB (Rec: 06/22/18 18:12 AB [id number]) PT Summary Assessment and Plan Potential Rehabilitation Potential Good Summary Impairments Pain ROM Strength Balance Coordination Sensation Tone Cognition Bed Mobility Transfers Gait Activity Tolerance Progress Towards Goals Slow Progress due to Medical Issues Slow Progress due to Activity Tolerance Assessment Summary pt requiring SBA with mobility and continues to have decrease activity tolerance but has improved. Pt requiring use of FWW for steadiness. pt plans to go home when medically stable and may need a FWW upon d/c depending on progress. Goals Bed Mobility Goal Independent Transfer Goal Independent Front Wheeled Walker Gait Goal Independent Front Wheel Walker Gait Distance 350 Other Goals up/down 4 steps with 1 rail Frequency of Treatment Frequency Of Treatment Twice a Day Treatment Plan Physical Therapy Treatment Plan Bed Mobility Training Transfer Training Gait Training Therapeutic Exercise Balance Retraining Post Op Education Discharge Planning Other Recommendations and Next Treatment stair training Focus Recommendations To Nursing Amount of Assist Needed Standby Assistance Discharge Recommendations PT Discharge Recommendations Home with Assistance Home Health Equipment Needed for Home Before may need FWW if D/C home Discharge
--- NOTE | 2018-06-22 15:47 | CM.DPC ---
DCP Cont: Spoke w/pt about recommendation for ongoing TPN and HH RN for wound care. Pt aware, still intends to DC home upon medical DC, and has no agency preference. Pt is very appreciative for all coordination on her behalf. Contacted [facility], asked financial administration officer to fax referral. Spoke to Ginny at [facility], discussed referral. Later heard that pt's [facility] will cover TPN 100% and [facility] working on auth for TPN today w/ our provided clinical information. Requested that admin Dipesh also fax referral to [facility] for HH RN. Pt is not anticipated to DC until next week per surgical team. F2F needs to be signed. Completed F2F and HH order need to be sent to [facility] and referral confirmed. No time to update patient today re: above. SQL DEVELOPER DBA team following closely. BRENDAN Verde
[2018-06-22] MEDS: ENOXAPARIN 40 MG/0.4 ML SYRINGE SUBCUT (15:51)
[2018-06-22] MEDS: CALCIUM IV (17:58)
[2018-06-22] MEDS: LYTES IV (17:58)
[2018-06-22] MEDS: DEXT IV (17:58)
[2018-06-22] MEDS: [UNRECOGNIZED DRUG - OTHER] IV (17:58)
[2018-06-22] MEDS: POTASSIUM CHLORIDE IV (17:58)
[2018-06-22] MEDS: FAT EMULSIONS 50 GM/250 ML EMULSION IV (17:59)
[2018-06-22] MEDS: HYDROMORPHONE 0.5 MG INJ 1 MG IV (17:59)
--- NOTE | 2018-06-22 18:18 | PC.NURSE ---
Wound Ostomy Nurse Note with Dr. Diego and Dr. Chris Ms. Reyes awake. No drainage on her skin from fistula. There is drainage in the small fistula pouch and drainage in the drainage bag attached to the red milton and there is some drainage in the ostomy pouch. The kerlix gauze in the wound is saturated with drainage from the fistula. This need to be changed so we call Dr. Chris. Dr. Chris arrived and we removed the pouches and dressings. It was decided the best approach was to use a catheter placed into the fistula and then held in place with a stitch. Dr. Chris removed one staple and then cut a drainage catheter and sewed it into place. The catheter was placed to low wall suction. I used hydrocolloids around the wound to protect the skin from drainage and tape. Then used kerlix moist with normal saline and filled the wound. I then covered the kerlix with an abd pad and secured with tape. This dressing will need to be done twice a day. The catheter will need to be disconnected from wall suction when she ambulates. We will review patients case next week with the surgical team as we are all discussing the possibilities of using negative pressure on this wound.
[2018-06-22] MEDS: GENTAMICIN TROUGH 1 REQUEST MISC (19:02)
[2018-06-22 19:14] LABS: Gentamicin Trough 1.5 ug/mL (0.0-2.0)
--- NOTE | 2018-06-22 19:46 | P.PN_ITS ---
Subjective Date Patient Seen: 06/22/18 Time Patient Seen: 16:42 Interval history: The patient post exploratory laparotomy and has developed an enterocutaneous fistula. She has a lot of abdominal pain. Generally not feeling great. Exam Vital Signs (past 8 hours): - 06/22/18 13:12 06/22/18 15:00 06/22/18 16:06 Temperature 98.9 F 98.6 F Pulse Rate 92 H 96 H Respiratory Rate 18 18 Blood Pressure 110/67 153/76 H Pulse Oximetry 96 96 93 Oxygen Delivery Method Room Air Oxygen Flow Rate 0 Narrative Exam Narrative: Lungs are clear. Ear and abdomen is protuberant. The dressing is saturated with succus and it is draining out from under it. [place] at the upper midline or little red. Objective Labs Result Diagrams: 06/22/18 05:26 06/22/18 05:26 Labs: Laboratory Results - last 24 hr 06/22/18 06/22/18 06/22/18 05:26 05:26 18:39 WBC 7.6 RBC 2.82 L Hgb 8.1 L Hct 23.8 L MCV 84.3 MCH 28.5 MCHC 33.8 RDW 15.8 H Plt Count 533 H Neut % (Auto) 65.9 Lymph % (Auto) 18.7 L [place] % (Auto) 11.5 Eos % (Auto) 3.2 Baso % (Auto) 0.7 Neut # (Auto) 5000 Sodium 134 L Potassium 4.7 Chloride 96 L Carbon Dioxide 28 BUN 12 Creatinine 0.70 Estimated GFR > 60.0 BUN/Creatinine Ratio 17.1 Glucose 106 H Calcium 8.4 Phosphorus 6.3 H Magnesium 1.9 Gentamicin Trough 1.5 Assessment & Plan Post-op Postoperative Procedures Operation Date: 06/13/18 13:15 Actual Procedures Side Surgeon p Exploratory Laparotomy, LYSIS OF ADHESIONS, Placement of gastrostomy tube Not Applicable Tate Levy MD Postoperative status narrative: Amanda Sellers. Dr. Diego from wound care and I took the dressing down. The red rubber that had been inserted really was not doing much of a job. She was saturating or dressing when she would stand up. It was leaking out from under it. It was getting on the skin in some areas. Postoperative plan narrative: All the dressing was removed. Additional boyd were removed and open the wound so that I could actually see the entire opening to the fistula. Using a large 3 way Chaparro catheter I cut it to appropriate length so that the head and would fit right at the fascial edge and removed the balloon fluid adapter so that both ends were open adjacent to the center tract of the catheter. I sutured this into place so that it would not move and placed to low wall suction. This appeared to adequately to suck all of the fluid from the fistula so it was not welling into the wound and dirty Ng the gauze. We then protected the skin at the edge and placed a saline wet to dry dressing in the remainder of the wound. Hopefully this will satisfy the needs to control the drainage from the fistula while it matures and the rest heals.
[2018-06-22] MEDS: GENTAMICIN PEAK 1 REQUEST MISC (20:30)
[2018-06-22 21:09] LABS: Gentamicin Peak 6.5 ug/mL (5.0-8.0)
--- NOTE | 2018-06-22 22:40 | PC.NURSE ---
Minimal output (2-3mls) from 3-way wallis placed earlier by MD to LWS in midline incision for drainage containment. Dressing remains CDI. No nausea, vomiting. Pain well controlled with Dilaudid ORACLE DATABASE ANALYST, 3 mg used total for zhou shift.
[2018-06-23] VITALS (8 sets, daily range): BP systolic 98–132; BP diastolic 57–79; PULSE 86–103; RESP 15–18; TEMP 36.7–37.2; O2SAT 95–96
[2018-06-23] MEDS: CEFAZOLIN 1 GM/50 ML FROZ.PIGGY IV ×3 (02:04→18:28)
[2018-06-23] MEDS: CLINDAMYCIN 600 MG/50 ML PIGGYBACK 50 MG IV ×3 (02:23→19:18)
[2018-06-23] MEDS: GENTAMICIN 110 MG in SODIUM CHLORIDE 0.9% 100 ML 102.75 ML IV ×2 (03:31→09:56)
[2018-06-23] MEDS: HYDROMORPHONE PCA 6 MG/30 ML PCA.VIAL IV ×3 (06:17→21:29)
[2018-06-23] MEDS: PANTOPRAZOLE 40 MG VIAL IV (09:24)
[2018-06-23] MEDS: LORazepam 2 MG/ML SYRINGE 1 MG IV ×2 (09:27→20:51)
--- NOTE | 2018-06-23 11:17 | PC.NURSE ---
DAy Shift- Pt A&OX4, flat affect, cooperative, anxious and teary this morning, discouraged with hospital stay. Support and encouragement provided. Pt's pain 5/10 to abd, CRUSHER PLANT OPERATOR effective pain management per pt. Denies nausea. Ativan 1mg IV prn given at 0925 prior to abd dressing change. Pt had tender area to proximal end of dressing area. Duoderm intact to either side of wound. Dressing removed for large amount of brown/green drainage. Packing removed without difficulty, at some points, NS used to moist and loosen gauze areas. Wound flushed with NS. Wound moist and pink/red. Wound packed with moist NS kerlix gauze, covered with abd pad and secured with medipore tape. Pt tolerated well. Stated the ativan made her sleepy and she used her CRUSHER PLANT OPERATOR once during dressing change. Pt ambulated with PT at [address] Disconnected abd drain from suction, wrapped end of tube with abd pad and placed a blue dressing pad around and secured with mesh pants. Pt tolerating clear liquids. Gastrostomy tube in place to gravity.
--- NOTE | 2018-06-23 11:20 | PT.IPTN ---
Current Diagnoses Intestinal adhesions [bands], unspecified as to partial versus complete obstruction (06/08/18) Surgery Performed Operation Date: 06/13/18 13:15 Actual Procedures p Exploratory Laparotomy, LYSIS OF ADHESIONS, Placement of gastrostomy tube(Not Applicable) - Tate Levy MD Physical Therapy Treatment Note M2 PT-IP Current Condition Start: 06/14/18 10:27 Freq: NEEDED Status: Active Protocol: Document 06/14/18 10:27 LR (Rec: 06/14/18 10:33 [facility] [id number]) Physical Therapy Current Condition Current Condition Evaluation Date 04/26/18 Treatment Diagnosis s/p exploratory laporotomy, weakness Precautions Abdominal Surgery Precautions Log Roll Lifting Restrictions Gait Belt above Incisional Area Weight Bearing Status Weight Bearing Status Full Weight Bearing M3 PT-IP Subjective Start: 06/14/18 10:27 Freq: NEEDED Status: Active Protocol: Document 06/23/18 11:20 GGD (Rec: 06/23/18 12:28 GGD [id number]) Subjective Physical Therapy Visit Type Type Treatment Note Visit Start Time 11:00 Visit Stop Time 11:20 Total Visit Minutes 20 Number of SULFURIC ACID PLANT OPERATOR Visits 1 Physical Therapy Visit Comments Patient Comments Pt wants to ambulate Therapy Pain Assessment Pain When Pain Assessed At Rest Pain Present Pain Present Pain Reported Location Bilateral Lower Abdomen Intensity 5 Scale Used Numeric (1 - 10) M4 PT-IP Mobility and Gait Start: 06/14/18 10:27 Freq: NEEDED Status: Active Protocol: Document 06/23/18 11:20 GGD (Rec: 06/23/18 12:28 GGD [id number]) PT-Bed Mobility Assessment Rolling Type of Rolling Log Rolling Roll to Left Level of Assist Standby Assistance Supine to Sit Supine to Sit Standby Assistance Bedrails Sit to Supine Sit to Supine Standby Assistance Bedrails Scooting Scooting to Edge of Bed Standby Assistance PT-Transfer Assessment Sit to and From Stand Sit to and from Stand Standby Assistance Use of Upper Extremities Equipment Transfer Assistive Device Gait Belt Front Wheeled Walker Orthotic/Prosthetic Devices or Brace: No Transfers Transfer Destination Bed Transfer Ability Level of Assist Standby Assistance Gait Assessment Gait Gait Assistance Required: Standby Assistance Distance (Feet) 250 Able to Maintain Weight Bearing Status Yes During Gait Assistive Devices Assistive Device Gait Belt Front Wheeled Walker Orthotic/Prosthetic Devices or Brace: No Gait Deviations General Gait Pattern Decreased Stride Length Decreased Feet Clearance Factors Limiting Gait Function Factors Limiting Gait Function Decreased Strength Limited Range of Motion Pain Poor Balance M5 PT-IP Objective Assessments Start: 06/14/18 10:27 Freq: NEEDED Status: Active Protocol: Document 06/14/18 10:27 [facility]H (Rec: 06/14/18 10:33 [facility] [email or web address]) Orientation Orientation/Cognition Level of Alertness Lethargic Strength Lower Extremity Strength Assessment Bilaterally Impaired M6 PT-IP Treatment Start: 06/14/18 10:27 Freq: NEEDED Status: Active Protocol: Document 06/22/18 15:27 AB (Rec: 06/22/18 18:12 AB [id number]) Physical Therapy Treatment Education Education Provided Precautions Safety M7 PT-IP Assessment and Plan Start: 06/14/18 10:27 Freq: NEEDED Status: Active Protocol: Document 06/23/18 11:20 GGD (Rec: 06/23/18 12:28 GGD [id number]) PT Summary Assessment and Plan Summary Assessment Summary Pt improving slowly. Anjali had increase in pain with ambulation that limited her gait distance. She needs FWW for stability with gait. She plans on D/C home when medically stable. Frequency of Treatment Frequency Of Treatment Twice a Day Treatment Plan Physical Therapy Treatment Plan Bed Mobility Training Transfer Training Gait Training Therapeutic Exercise Balance Retraining Post Op Education Discharge Planning Other Recommendations and Next Treatment stair training Focus Recommendations To Nursing Amount of Assist Needed Standby Assistance Discharge Recommendations PT Discharge Recommendations Home with Assistance Home Health Equipment Needed for Home Before may need FWW if D/C home Discharge
[2018-06-23] MEDS: ENOXAPARIN 40 MG/0.4 ML SYRINGE SUBCUT (14:22)
--- NOTE | 2018-06-23 15:50 | PT.IPTN ---
Current Diagnoses Intestinal adhesions [bands], unspecified as to partial versus complete obstruction (06/08/18) Surgery Performed Operation Date: 06/13/18 13:15 Actual Procedures p Exploratory Laparotomy, LYSIS OF ADHESIONS, Placement of gastrostomy tube(Not Applicable) - Tate Levy MD Physical Therapy Treatment Note M2 PT-IP Current Condition Start: 06/14/18 10:27 Freq: NEEDED Status: Active Protocol: Document 06/14/18 10:27 LR (Rec: 06/14/18 10:33 [facility] [email or web address]) Physical Therapy Current Condition Current Condition Evaluation Date 04/26/18 Treatment Diagnosis s/p exploratory laporotomy, weakness Precautions Abdominal Surgery Precautions Log Roll Lifting Restrictions Gait Belt above Incisional Area Weight Bearing Status Weight Bearing Status Full Weight Bearing M3 PT-IP Subjective Start: 06/14/18 10:27 Freq: NEEDED Status: Active Protocol: Document 06/23/18 15:50 GGD (Rec: 06/23/18 16:10 GGD [id number]) Subjective Physical Therapy Visit Type Type Treatment Note Visit Start Time 15:40 Visit Stop Time 15:55 Total Visit Minutes 15 Number of INTERACTIVE MEDIA MARKETING DIRECTOR Visits 2 Physical Therapy Visit Comments Patient Comments Pt willing to work with therapy. Therapy Pain Assessment Pain When Pain Assessed At Rest Pain Present Pain Present Pain Reported Location Bilateral Lower Abdomen Intensity 6 Scale Used Numeric (1 - 10) M4 PT-IP Mobility and Gait Start: 06/14/18 10:27 Freq: NEEDED Status: Active Protocol: Document 06/23/18 15:50 GGD (Rec: 06/23/18 16:10 GGD [id number]) PT-Bed Mobility Assessment Rolling Type of Rolling Log Rolling Roll to Left Level of Assist Standby Assistance Supine to Sit Supine to Sit Standby Assistance Bedrails Sit to Supine Sit to Supine Standby Assistance Bedrails Scooting Scooting to Edge of Bed Standby Assistance PT-Transfer Assessment Sit to and From Stand Sit to and from Stand Standby Assistance Use of Upper Extremities Equipment Transfer Assistive Device Gait Belt Front Wheeled Walker Orthotic/Prosthetic Devices or Brace: No Transfers Transfer Destination Bed Transfer Ability Level of Assist Standby Assistance Gait Assessment Gait Gait Assistance Required: Standby Assistance Distance (Feet) 400 Able to Maintain Weight Bearing Status Yes During Gait Assistive Devices Assistive Device Gait Belt Front Wheeled Walker Orthotic/Prosthetic Devices or Brace: No Gait Deviations General Gait Pattern Decreased Stride Length Decreased Feet Clearance Factors Limiting Gait Function Factors Limiting Gait Function Decreased Strength Limited Range of Motion Pain Poor Balance M5 PT-IP Objective Assessments Start: 06/14/18 10:27 Freq: NEEDED Status: Active Protocol: Document 06/14/18 10:27 [facility]H (Rec: 06/14/18 10:33 [facility] [email or web address]) Orientation Orientation/Cognition Level of Alertness Lethargic Strength Lower Extremity Strength Assessment Bilaterally Impaired M6 PT-IP Treatment Start: 06/14/18 10:27 Freq: NEEDED Status: Active Protocol: Document 06/22/18 15:27 AB (Rec: 06/22/18 18:12 AB [id number]) Physical Therapy Treatment Education Education Provided Precautions Safety M7 PT-IP Assessment and Plan Start: 06/14/18 10:27 Freq: NEEDED Status: Active Protocol: Document 06/23/18 15:50 GGD (Rec: 06/23/18 16:10 GGD [id number]) PT Summary Assessment and Plan Summary Assessment Summary Pt able to progress her gait distance. She still needs FWW for gait. She had mild unsteadiness with fatigue, but no LOB. Pt safe for home D/C when medically stable. Frequency of Treatment Frequency Of Treatment Twice a Day Treatment Plan Physical Therapy Treatment Plan Bed Mobility Training Transfer Training Gait Training Therapeutic Exercise Balance Retraining Post Op Education Discharge Planning Other Recommendations and Next Treatment stair training Focus Recommendations To Nursing Amount of Assist Needed Standby Assistance Discharge Recommendations PT Discharge Recommendations Home with Assistance Home Health Equipment Needed for Home Before may need FWW if D/C home Discharge
--- NOTE | 2018-06-23 17:12 | P.PN_ITS ---
Subjective Date Patient Seen: 06/23/18 Time Patient Seen: 11:10 Interval history: Carol is doing reasonably well today. The sump system that Dr. Chris put together yesterday seems to be controlling drainage from the abdominal wound quite well. The dressing has already been changed early this morning. Carol has walks twice with physical therapy. TPN continues and she is tolerating it well. She is quite uncomfortable with abdominal pain. She says her pain medications help. Exam Vital Signs (past 8 hours): - 06/23/18 09:30 06/23/18 11:33 06/23/18 15:41 Temperature 98.9 F 98.7 F Pulse Rate 90 88 Respiratory Rate 18 15 Blood Pressure 132/77 98/57 L Pulse Oximetry 96 95 95 Oxygen Delivery Method Room Air Oxygen Flow Rate 0 Narrative Exam Narrative: Lungs are clear Heart is regular rate and rhythm Abdomen is soft but diffusely tender. 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 Extremities: Trace edema bilaterally Objective Labs Result Diagrams: 06/22/18 05:26 06/22/18 05:26 Labs: Laboratory Results - last 24 hr 06/22/18 06/22/18 18:39 20:48 Gentamicin Peak 6.5 Gentamicin Trough [address] [facility] CLIA ID [id number] [address] [place] [address] RUN DATE: 06/23/18 Specimen Inquiry PAGE 1 RUN TIME: 1714 Name: Carol Reyes Age/Sex: 53/F Attend Dr: Tate Levy MD Unit#: [id number] : 1965Location: AC 210-1 Re06/08/18 Disch: Status: ADM IN SPEC #: [id number] VLAD: 06/21/18 STATUS: RES REQ #: [id number] SPDESC: RECD: 06/21/[address]: Tate Levy MD SOURCE: Abdomen ENTR: 06/21/[address]: FAX TO: ORDERED: WOUND Cx and GS Procedure Result Verified Site Gram Stain Final 06/21/18- 2026 White blood cells Occasional WBC seen Gram Negative Rods 2+ Aerobic Culture for wounds Final 06/23/18913 Organism 1 Enterococcus faecalis Growth LIGHT 1. Enterococcus faecalis M.I.C. RX --------- --- * Ampicillin S * Daptomycin S * Vancomycin S * Ciprofloxacin S * Doxycycline I * Erythromycin R * Gentamicin 500 R * Levofloxacin S * Linezolid S * Nitrofurantoin S * Streptomycin 2000 S * Tetracycline R * Tigecycline S Anaerobic Culture Preliminary 06/23/18 1331 <No reportable results for this procedure> Assessment & Plan Plan: Assessment/Plan Narrative: No new labs this morning. We will recheck electrolytes in the morning due to ongoing TPN. Wound culture grew Enterococcus that is resistant to gentamicin. I will stop gentamicin and start vancomycin. Ancef may be covering us a little bit as it is sensitive to ampicillin and this is organism that should generally be double covered. I will leave clinda in place for help with anaerobes. Continue physical therapy. Continue TPN.
[2018-06-23] MEDS: VANCOMYCIN 1,000 MG/200 ML FROZ.PIGGY 200 MG IV (17:17)
[2018-06-23] MEDS: FAT EMULSIONS 50 GM/250 ML EMULSION IV (18:28)
[2018-06-23] MEDS: [UNRECOGNIZED DRUG - OTHER] IV (18:29)
[2018-06-23] MEDS: POTASSIUM CHLORIDE IV (18:29)
[2018-06-23] MEDS: DEXT IV (18:29)
[2018-06-23] MEDS: LYTES IV (18:29)
[2018-06-23] MEDS: CALCIUM IV (18:29)
[2018-06-24] VITALS (9 sets, daily range): BP systolic 107–131; BP diastolic 63–77; PULSE 85–94; RESP 16–20; TEMP 36.6–37; O2SAT 94–96
[2018-06-24] MEDS: VANCOMYCIN 1,000 MG/200 ML FROZ.PIGGY 200 MG IV ×3 (01:58→18:04)
[2018-06-24] MEDS: CEFAZOLIN 1 GM/50 ML FROZ.PIGGY IV ×3 (03:04→19:07)
[2018-06-24] MEDS: CLINDAMYCIN 600 MG/50 ML PIGGYBACK 50 MG IV ×3 (03:24→19:22)
[2018-06-24] MEDS: HYDROMORPHONE PCA 6 MG/30 ML PCA.VIAL IV ×3 (05:56→21:37)
[2018-06-24] MEDS: LORazepam 2 MG/ML SYRINGE 1 MG IV ×2 (08:16→20:15)
[2018-06-24] MEDS: PANTOPRAZOLE 40 MG VIAL IV (09:54)
--- NOTE | 2018-06-24 13:44 | PM.PN.1 ---
Subjective Date Patient Seen: 06/24/18 Time Patient Seen: 13:44 Interval history: Carol is doing fairly well this morning. The [place]arro system is controlling output from the fistula and the G-tube is producing gastric fluid. Carol denies any terrible abdominal pain. She is continuing to walk with physical therapy. Exam Vital Signs (past 8 hours): - 06/24/18 08:00 06/24/18 08:03 06/24/18 12:30 Temperature 98.6 F 98.1 F Pulse Rate 89 85 Respiratory Rate 18 20 Blood Pressure 107/65 107/64 Pulse Oximetry 95 95 96 Oxygen Delivery Method Room Air Oxygen Flow Rate 0 Narrative Exam Narrative: Wound is open but controlled. She does have active bowel tones currently. No rebound or guarding. Lungs are clear to auscultation bilaterally. Heart is regular rate and rhythm. Objective Labs Result Diagrams: 06/22/18 05:26 06/22/18 05:26 Assessment & Plan Plan: Assessment/Plan Narrative: 1. Continue wound management as constructed. 2. Continue TPN with current formula. No additional insulin needed at this time 3. Check labs in a.m.
--- NOTE | 2018-06-24 13:49 | PT.IPTN ---
Current Diagnoses Intestinal adhesions [bands], unspecified as to partial versus complete obstruction (06/08/18) Surgery Performed Operation Date: 06/13/18 13:15 Actual Procedures p Exploratory Laparotomy, LYSIS OF ADHESIONS, Placement of gastrostomy tube(Not Applicable) - Tate Levy MD Physical Therapy Treatment Note M2 PT-IP Current Condition Start: 06/14/18 10:27 Freq: NEEDED Status: Active Protocol: Document 06/14/18 10:27 LR (Rec: 06/14/18 10:33 [facility] [email or web address]) Physical Therapy Current Condition Current Condition Evaluation Date 04/26/18 Treatment Diagnosis s/p exploratory laporotomy, weakness Precautions Abdominal Surgery Precautions Log Roll Lifting Restrictions Gait Belt above Incisional Area Weight Bearing Status Weight Bearing Status Full Weight Bearing M3 PT-IP Subjective Start: 06/14/18 10:27 Freq: NEEDED Status: Active Protocol: Document 06/24/18 09:45 CLB (Rec: 06/24/18 13:49 CLB [id number]) Subjective Physical Therapy Visit Type Type Treatment Note Visit Start Time 09:45 Visit Stop Time 10:00 Total Visit Minutes 15 Number of STEEL POST INSTALLER Visits 3 Physical Therapy Visit Comments Patient Comments Pt willing to work with therapy after using [facility] [place]. M4 PT-IP Mobility and Gait Start: 06/14/18 10:27 Freq: NEEDED Status: Active Protocol: Document 06/24/18 09:45 CLB (Rec: 06/24/18 13:49 CLB [id number]) PT-Bed Mobility Assessment Rolling Type of Rolling Log Rolling Roll to Left Scooting Scooting to Edge of Bed Standby Assistance PT-Transfer Assessment Sit to and From Stand Sit to and from Stand Standby Assistance Use of Upper Extremities Equipment Transfer Assistive Device Gait Belt Front Wheeled Walker Orthotic/Prosthetic Devices or Brace: No Transfers Transfer Destination Bed Bedside Commode Transfer Ability Level of Assist Standby Assistance Comments Mobility Comments Pt stood and transfered to [facility] [place] [place] w/o AD SBA, pt was also able to rony/doff brief with good standing balance. Pt required assist with pericare. Gait Assessment Comments Gait Comments pt feeling fatigued wanting to ambulate later today. M5 PT-IP Objective Assessments Start: 06/14/18 10:27 Freq: NEEDED Status: Active Protocol: Document 06/14/18 10:27 LR (Rec: 06/14/18 10:33 [facility] [email or web address]) Orientation Orientation/Cognition Level of Alertness Lethargic Strength Lower Extremity Strength Assessment Bilaterally Impaired M6 PT-IP Treatment Start: 06/14/18 10:27 Freq: NEEDED Status: Active Protocol: Document 06/22/18 15:27 AB (Rec: 06/22/18 18:12 AB [id number]) Physical Therapy Treatment Education Education Provided Precautions Safety M7 PT-IP Assessment and Plan Start: 06/14/18 10:27 Freq: NEEDED Status: Active Protocol: Document 06/24/18 09:45 CLB (Rec: 06/24/18 13:49 CLB [id number]) PT Summary Assessment and Plan Summary Assessment Summary Pt used BSC SBA but felt to fatigued to continues and wanted to transfer back to bed and ambulate later today. Goals Bed Mobility Goal Independent Transfer Goal Independent Front Wheeled Walker Gait Goal Independent Front Wheel Walker Gait Distance 350 Other Goals up/down 4 steps with 1 rail Frequency of Treatment Frequency Of Treatment Twice a Day Treatment Plan Physical Therapy Treatment Plan Bed Mobility Training Transfer Training Gait Training Therapeutic Exercise Balance Retraining Post Op Education Discharge Planning Other Recommendations and Next Treatment stair training Focus Recommendations To Nursing Amount of Assist Needed Standby Assistance Discharge Recommendations PT Discharge Recommendations Home with Assistance Home Health Equipment Needed for Home Before may need FWW if D/C home Discharge
[2018-06-24] MEDS: ENOXAPARIN 40 MG/0.4 ML SYRINGE SUBCUT (14:27)
--- NOTE | 2018-06-24 15:25 | PT.IPTN ---
Current Diagnoses Intestinal adhesions [bands], unspecified as to partial versus complete obstruction (06/08/18) Surgery Performed Operation Date: 06/13/18 13:15 Actual Procedures p Exploratory Laparotomy, LYSIS OF ADHESIONS, Placement of gastrostomy tube(Not Applicable) - Tate Levy MD Physical Therapy Treatment Note M2 PT-IP Current Condition Start: 06/14/18 10:27 Freq: NEEDED Status: Active Protocol: Document 06/14/18 10:27 [facility]H (Rec: 06/14/18 10:33 [facility] [email or web address]) Physical Therapy Current Condition Current Condition Evaluation Date 04/26/18 Treatment Diagnosis s/p exploratory laporotomy, weakness Precautions Abdominal Surgery Precautions Log Roll Lifting Restrictions Gait Belt above Incisional Area Weight Bearing Status Weight Bearing Status Full Weight Bearing M3 PT-IP Subjective Start: 06/14/18 10:27 Freq: NEEDED Status: Active Protocol: Document 06/24/18 14:50 CLB (Rec: 06/24/18 15:24 CLB [id number]) Subjective Physical Therapy Visit Type Type Treatment Note Visit Start Time 14:50 Visit Stop Time 15:13 Total Visit Minutes 23 Number of PICKER PACKER Visits 4 Physical Therapy Visit Comments Patient Comments Pt willing to work with therapy after using BSC. Therapy Pain Assessment Pain When Pain Assessed At Rest Pain Present Pain Present Pain Reported Location Bilateral Lower Abdomen Intensity 6 Scale Used Numeric (1 - 10) M4 PT-IP Mobility and Gait Start: 06/14/18 10:27 Freq: NEEDED Status: Active Protocol: Document 06/24/18 14:50 CLB (Rec: 06/24/18 15:24 CLB [id number]) PT-Bed Mobility Assessment Rolling Type of Rolling Log Rolling Roll to Left Level of Assist Standby Assistance Supine to Sit Supine to Sit Standby Assistance Bedrails Sit to Supine Sit to Supine Standby Assistance Bedrails Scooting Scooting to Edge of Bed Standby Assistance PT-Transfer Assessment Sit to and From Stand Sit to and from Stand Standby Assistance Use of Upper Extremities Equipment Transfer Assistive Device Gait Belt Front Wheeled Walker Orthotic/Prosthetic Devices or Brace: No Transfers Transfer Destination Bed Bedside Commode Transfer Ability Level of Assist Standby Assistance Comments Mobility Comments Pt stood and transfered to [facility] [place] [facility] [place]FWW[place]SBA, pt was also able to rony/doff brief with good standing balance. Pt required assist with pericare. Gait Assessment Gait Gait Assistance Required: Standby Assistance Distance (Feet) 300 Able to Maintain Weight Bearing Status Yes During Gait Assistive Devices Assistive Device Gait Belt Front Wheeled Walker Orthotic/Prosthetic Devices or Brace: No Gait Deviations General Gait Pattern Decreased Stride Length Decreased Feet Clearance Factors Limiting Gait Function Factors Limiting Gait Function Decreased Strength Limited Range of Motion Pain Poor Balance M5 PT-IP Objective Assessments Start: 06/14/18 10:27 Freq: NEEDED Status: Active Protocol: Document 06/14/18 10:27 LRH (Rec: 06/14/18 10:33 [facility] [email or web address]) Orientation Orientation/Cognition Level of Alertness Lethargic Strength Lower Extremity Strength Assessment Bilaterally Impaired M6 PT-IP Treatment Start: 06/14/18 10:27 Freq: NEEDED Status: Active Protocol: Document 06/22/18 15:27 AB (Rec: 06/22/18 18:12 AB [id number]) Physical Therapy Treatment Education Education Provided Precautions Safety M7 PT-IP Assessment and Plan Start: 06/14/18 10:27 Freq: NEEDED Status: Active Protocol: Document 06/24/18 14:50 CLB (Rec: 06/24/18 15:24 CLB [id number]) PT Summary Assessment and Plan Summary Assessment Summary Pt with increased ilana during ambulation, due to increased fatigue today pt ambulated ~300ft. Pt is SBA for all bed mobility transfers and gait. Goals Bed Mobility Goal Independent Transfer Goal Independent Front Wheeled Walker Gait Goal Independent Front Wheel Walker Gait Distance 350 Other Goals up/down 4 steps with 1 rail Frequency of Treatment Frequency Of Treatment Twice a Day Treatment Plan Physical Therapy Treatment Plan Bed Mobility Training Transfer Training Gait Training Therapeutic Exercise Balance Retraining Post Op Education Discharge Planning Other Recommendations and Next Treatment gait and stair training when Focus able. Recommendations To Nursing Amount of Assist Needed Standby Assistance Discharge Recommendations PT Discharge Recommendations Home with Assistance Home Health Equipment Needed for Home Before may need FWW if D/C home Discharge
[2018-06-24 17:21] LABS: Vancomycin Trough 12.7 ug/mL (10-20)
[2018-06-24] MEDS: VANCOMYCIN TROUGH 1 REQUEST MISC (17:47)
[2018-06-24] MEDS: FAT EMULSIONS 50 GM/250 ML EMULSION IV (18:04)
[2018-06-24] MEDS: CALCIUM IV (18:05)
[2018-06-24] MEDS: POTASSIUM CHLORIDE IV (18:05)
[2018-06-24] MEDS: DEXT IV (18:05)
[2018-06-24] MEDS: [UNRECOGNIZED DRUG - OTHER] IV (18:05)
[2018-06-24] MEDS: LYTES IV (18:05)
[2018-06-25] VITALS (8 sets, daily range): BP systolic 102–121; BP diastolic 61–75; PULSE 80–90; RESP 14–19; TEMP 36.6–37.1; O2SAT 94–98
[2018-06-25] MEDS: VANCOMYCIN 1,000 MG/200 ML FROZ.PIGGY 200 MG IV ×3 (01:15→17:35)
[2018-06-25] MEDS: CEFAZOLIN 1 GM/50 ML FROZ.PIGGY IV (02:20)
[2018-06-25] MEDS: CLINDAMYCIN 600 MG/50 ML PIGGYBACK 50 MG IV ×3 (03:40→20:28)
[2018-06-25 06:11] LABS: Add Manual Diff / Slide Review NO; Basophils Absolute Auto 100 /uL (0-100); Basophils Percent Auto 0.9 % (0-2); Eosinophils Absolute Auto 300 /uL (0-450); Eosinophils Percent Auto 3.8 % (2-4); Hematocrit 28.5 % (36-46); Hemoglobin 9.5 g/dL (12.0-16.0); Lymphocytes Absolute Auto 1500 /uL (1100-4500); Lymphocytes Percent Auto 19.5 % (25-40); Mean Corpuscular HGB Conc 33.5 % (30-36); Mean Corpuscular Volume 83.5 fL (80-100); Monocytes Absolute Auto 900 /uL (0-900); Monocytes Percent Auto 11.5 % (3-14); Neutrophils Absolute Auto 4900 /uL (1500-7000); Neutrophils Percent Auto 64.3 % (50-75); Platelet Count 769 X10^3/uL (150-400); Red Blood Cell Count 3.41 X10^6/uL (4.0-5.2); Red Cell Distribution Width 16.1 % (11.6-14.8); White Blood Cell Count 7.7 X10^3/uL (4.5-11.0)
[2018-06-25 06:12] LABS: Platelet Estimate Increased on smear
[2018-06-25 06:21] LABS: Alanine Aminotransferase 24 IU/L (9-52); Albumin Globulin Ratio 0.8 (1.0-2.8); Alkaline Phosphatase 99 U/L (38-126); Aspartate Aminotransferase 21 IU/L (14-36); BUN Creatinine Ratio 14.3 (6-22); Bilirubin Total 0.2 mg/dL (0.2-1.3); Blood Urea Nitrogen 10 mg/dL (7-17); Calcium 9.4 mg/dL (8.4-10.2); Carbon Dioxide 29 mmol/L (22-32); Chloride 97 mmol/L (98-107); Estimated Glomerular Filt Rate > 60.0 mL/min (>60); Globulin 3.9 g/dL (1.7-4.1); Glucose 124 mg/dL (70-100); HEMOLYSIS < 15 (0-50); Potassium 4.6 mmol/L (3.4-5.1); Sodium 136 mmol/L (137-145); Total Protein 6.9 g/dL (6.3-8.2)
[2018-06-25] MEDS: HYDROMORPHONE PCA 6 MG/30 ML PCA.VIAL IV ×2 (06:30→13:14)
[2018-06-25] MEDS: PANTOPRAZOLE 40 MG VIAL IV (09:11)
--- NOTE | 2018-06-25 11:07 | PM.PN.1 ---
Subjective Date Patient Seen: 06/25/18 Time Patient Seen: 11:07 Interval history: Patient denies significant pain. POTTER OR CERAMIC ARTIST is working well at this point. She is actually not using a significant amount of Dilaudid intravenously at this stage. Denies subjective fever or chills. Feeling better overall over the last several days. No bowel function per rectum. Fistula output is decreased with total output through the catheter and the dressing in approximately 400-500 cc every 24 hr. Gastrostomy tube output is essentially gastric fluid only and only several 100 cc. Patient has no nausea or vomiting. No chest pain or shortness of breath. Exam Vital Signs (past 8 hours): - 06/25/18 04:40 06/25/18 08:26 06/25/18 08:27 Temperature 98.4 F 98 F Pulse Rate 82 80 Respiratory Rate 16 14 Blood Pressure 114/71 102/61 Pulse Oximetry 95 96 94 Oxygen Delivery Method Room Air Oxygen Flow Rate 0 Narrative Exam Narrative: Patient seen and examined with the attending nurse, Tanesha Titus Patient lying comfortably in bed in no acute distress. No fevers. No tachycardia. Blood pressure is normal. Adequate urine output Fistula and gastrostomy tube outputs as above Regular rate and rhythm. No wheezes Abdomen soft and nondistended. Gastrostomy tube site is clean and intact. I personally changed her dressing with the assistance of the nurse today. Chaparro catheter remains in good position. Wound bed is granulating well. There is actually minimal soilage on the existing wet-to-dry saline dressing which was placed at approximately 8:00 p.m. last evening. Skin is clean and intact without erythema, and the barrier is functioning nicely. She is appropriately tender to palpation but certainly has no guarding or rebound. Fistula has yet to mature. Extremities show no clubbing or cyanosis Objective Labs Result Diagrams: 06/25/18 05:58 06/25/18 05:58 Labs: Laboratory Results - last 24 hr 06/24/18 06/25/18 06/25/18 16:40 05:58 05:58 WBC 7.7 RBC 3.41 L Hgb 9.5 L Hct 28.5 L MCV 83.5 MCH 28.0 MCHC 33.5 RDW 16.1 H Plt Count 769 H Neut % (Auto) 64.3 Lymph % (Auto) 19.5 L [place] % (Auto) 11.5 Eos % (Auto) 3.8 Baso % (Auto) 0.9 Neut # (Auto) 4900 Lymph # (Auto) 1500 [place] # (Auto) 900 Eos # (Auto) 300 Baso # (Auto) 100 Platelet Estimate Increased on smear RBC Morphology Not Reportable Sodium 136 L Potassium 4.6 Chloride 97 L Carbon Dioxide 29 BUN 10 Creatinine 0.70 Estimated GFR > 60.0 BUN/Creatinine Ratio 14.3 Glucose 124 H Calcium 9.4 Total Bilirubin 0.2 AST 21 ALT 24 Alkaline Phosphatase 99 Total Protein 6.9 Albumin 3.0 L Globulin 3.9 Albumin/Globulin Ratio 0.8 L Vancomycin Trough 12.7 Assessment & Plan Plan: Assessment/Plan Narrative: 53-year-old female with controlled enterocutaneous fistula and subsequent wound infection at this point. Cultures are showing enterococcus and Bacteroides. Enterococcus was resistant to gentamicin so she is now on vancomycin. I will discontinue the Ancef and start Levaquin to double cover both the enterococcus and presumably Bacteroides. She will now receive Levaquin, vancomycin, and clindamycin. Continue TPN and lipids. I anticipate she will be discharged home on TPN as previously documented. I hope to cycle the TPN for approximately 16 hr per day and off 8 hr per day. She may require several PICC line changes over the next several months. I discussed this with her. She will also need at least daily wound care with frequent office visits at at least 1 per week in conjunction with the wound care center. Home Health has been consulted. She will also require outpatient physical therapy. She may shower today. Continue clear liquid diet only. I discussed the relationship of oral intake with fistula output. I am hopeful that the fistula will remain low output as time passes, and no distal obstruction in the small bowel is present. Once the fistula is mature she will likely require a fistulogram and possibly even intubation with a feeding tube so that she may receive low volume enteric nutrition, which is preferable to total TPN. Again, I explained this to her in detail. However, I anticipate that it will take several months minimum for appropriate healing. All questions were answered to her satisfaction, and she voiced understanding. For now we will try to convert from intravenous to oral medications beginning with analgesics so that we can stop the POTTER OR CERAMIC ARTIST. Orders were written. Overall, anticipate at least another 5-7 days as inpatient status, and I do not anticipate that she requires intravenous antibiotics after discharge.
--- NOTE | 2018-06-25 11:14 | P.PN_ITS ---
Subjective Date Patient Seen: 06/25/18 Time Patient Seen: 11:07 Interval history: Patient denies significant pain. MAINTENANCE REPAIRER is working well at this point. She is actually not using a significant amount of Dilaudid intravenously at this stage. Denies subjective fever or chills. Feeling better overall over the last several days. No bowel function per rectum. Fistula output is decreased with total output through the catheter and the dressing in approximately 400-500 cc every 24 hr. Gastrostomy tube output is essentially gastric fluid only and only several 100 cc. Patient has no nausea or vomiting. No chest pain or shortness of breath. Exam Vital Signs (past 8 hours): - 06/25/18 04:40 06/25/18 08:26 06/25/18 08:27 Temperature 98.4 F 98 F Pulse Rate 82 80 Respiratory Rate 16 14 Blood Pressure 114/71 102/61 Pulse Oximetry 95 96 94 Oxygen Delivery Method Room Air Oxygen Flow Rate 0 Narrative Exam Narrative: Patient seen and examined with the attending nurse, Tanesha Titus Patient lying comfortably in bed in no acute distress. No fevers. No tachycardia. Blood pressure is normal. Adequate urine output Fistula and gastrostomy tube outputs as above Regular rate and rhythm. No wheezes Abdomen soft and nondistended. Gastrostomy tube site is clean and intact. I personally changed her dressing with the assistance of the nurse today. Chaparro catheter remains in good position. Wound bed is granulating well. There is actually minimal soilage on the existing wet-to-dry saline dressing which was placed at approximately 8:00 p.m. last evening. Skin is clean and intact without erythema, and the barrier is functioning nicely. She is appropriately tender to palpation but certainly has no guarding or rebound. Fistula has yet to mature. Extremities show no clubbing or cyanosis Objective Labs Result Diagrams: 06/25/18 05:58 06/25/18 05:58 Labs: Laboratory Results - last 24 hr 06/24/18 06/25/18 06/25/18 16:40 05:58 05:58 WBC 7.7 RBC 3.41 L Hgb 9.5 L Hct 28.5 L MCV 83.5 MCH 28.0 MCHC 33.5 RDW 16.1 H Plt Count 769 H Neut % (Auto) 64.3 Lymph % (Auto) 19.5 L [place] % (Auto) 11.5 Eos % (Auto) 3.8 Baso % (Auto) 0.9 Neut # (Auto) 4900 Lymph # (Auto) 1500 [place] # (Auto) 900 Eos # (Auto) 300 Baso # (Auto) 100 Platelet Estimate Increased on smear RBC Morphology Not Reportable Sodium 136 L Potassium 4.6 Chloride 97 L Carbon Dioxide 29 BUN 10 Creatinine 0.70 Estimated GFR > 60.0 BUN/Creatinine Ratio 14.3 Glucose 124 H Calcium 9.4 Total Bilirubin 0.2 AST 21 ALT 24 Alkaline Phosphatase 99 Total Protein 6.9 Albumin 3.0 L Globulin 3.9 Albumin/Globulin Ratio 0.8 L Vancomycin Trough 12.7 Assessment & Plan Plan: Assessment/Plan Narrative: 53-year-old female with controlled enterocutaneous fistula and subsequent wound infection at this point. Cultures are showing enterococcus and Bacteroides. Enterococcus was resistant to gentamicin so she is now on vancomycin. I will discontinue the Ancef and start Levaquin to double cover both the enterococcus and presumably Bacteroides. She will now receive Levaquin, vancomycin, and clindamycin. Continue TPN and lipids. I anticipate she will be discharged home on TPN as previously documented. I hope to cycle the TPN for approximately 16 hr per day and off 8 hr per day. She may require several PICC line changes over the next several months. I discussed this with her. She will also need at least daily wound care with frequent office visits at at least 1 per week in conjunction with the wound care center. Home Health has been consulted. She will also require outpatient physical therapy. She may shower today. Continue clear liquid diet only. I discussed the relationship of oral intake with fistula output. I am hopeful that the fistula will remain low output as time passes, and no distal obstruction in the small bowel is present. Once the fistula is mature she will likely require a fistulogram and possibly even intubation with a feeding tube so that she may receive low volume enteric nutrition, which is preferable to total TPN. Again, I explained this to her in detail. However, I anticipate that it will take several months minimum for appropriate healing. All questions were answered to her satisfaction, and she voiced understanding. For now we will try to convert from intravenous to oral medications beginning with analgesics so that we can stop the MAINTENANCE REPAIRER. Orders were written. Overall, anticipate at least another 5-7 days as inpatient status, and I do not anticipate that she requires intravenous antibiotics after discharge.
[2018-06-25] MEDS: levoFLOXacin 750 MG/150 ML PIGGYBACK 100 MG IV (11:34)
--- NOTE | 2018-06-25 13:34 | PT.IPTN ---
Current Diagnoses Intestinal adhesions [bands], unspecified as to partial versus complete obstruction (06/08/18) Surgery Performed Operation Date: 06/13/18 13:15 Actual Procedures p Exploratory Laparotomy, LYSIS OF ADHESIONS, Placement of gastrostomy tube(Not Applicable) - Tate Levy MD Physical Therapy Treatment Note M2 PT-IP Current Condition Start: 06/14/18 10:27 Freq: NEEDED Status: Active Protocol: Document 06/14/18 10:27 [facility] (Rec: 06/14/18 10:33 [facility] [email or web address]) Physical Therapy Current Condition Current Condition Evaluation Date 04/26/18 Treatment Diagnosis s/p exploratory laporotomy, weakness Precautions Abdominal Surgery Precautions Log Roll Lifting Restrictions Gait Belt above Incisional Area Weight Bearing Status Weight Bearing Status Full Weight Bearing M3 PT-IP Subjective Start: 06/14/18 10:27 Freq: NEEDED Status: Active Protocol: Document 06/25/18 10:30 [facility] (Rec: 06/25/18 13:34 [email or web address]) Subjective Physical Therapy Visit Type Type Treatment Note Visit Start Time 10:30 Visit Stop Time 11:00 Notes PT agreeable to mobilize with PT. Number of FITNESS PLAN COORDINATOR Visits 4 Physical Therapy Visit Comments Patient Comments i feel a bit tired of today since i walked quite a bit yesterday. Therapy Pain Assessment Pain When Pain Assessed At Rest Pain Present Pain Present Pain Reported Location Bilateral Lower Abdomen Intensity 5 Scale Used Numeric (1 - 10) M4 PT-IP Mobility and Gait Start: 06/14/18 10:27 Freq: NEEDED Status: Active Protocol: Document 06/25/18 10:30 [facility] (Rec: 06/25/18 13:34 [email or web address]) PT-Bed Mobility Assessment Rolling Type of Rolling Log Rolling Roll to Left Level of Assist Standby Assistance Supine to Sit Supine to Sit Standby Assistance Bedrails Sit to Supine Sit to Supine Standby Assistance Bedrails Scooting Scooting to Edge of Bed Standby Assistance PT-Transfer Assessment Sit to and From Stand Sit to and from Stand Standby Assistance Use of Upper Extremities Equipment Transfer Assistive Device Gait Belt Front Wheeled Walker Orthotic/Prosthetic Devices or Brace: No Transfers Transfer Destination Bed Chair Bedside Commode Transfer Ability Level of Assist Standby Assistance Comments Mobility Comments Pt was seen in bed at first and transferred to EOB for gait training with SBA. She then amb back to commode by the window with SBA 1pa. Pt performed sit to stand or stand to sit without use of UE and AD today. She was able to rony and doff brief as well but require PATIENT TRANSPORT OFFICER assist for cleaning from the back after toileting. Gait Assessment Gait Gait Assistance Required: Standby Assistance Distance (Feet) 400 Able to Maintain Weight Bearing Status Yes During Gait Assistive Devices Assistive Device Gait Belt Front Wheeled Walker Orthotic/Prosthetic Devices or Brace: No Gait Deviations General Gait Pattern Decreased Stride Length Decreased Feet Clearance Factors Limiting Gait Function Factors Limiting Gait Function Decreased Strength Limited Range of Motion Pain Poor Balance Comments Gait Comments Pt did not c/o fatigue and pain 11/19 after amb. Stair Climbing Assessment Evaluation Level of Assist On Stairs Contact Guard Assistance 1 Person Assistance Devices Stair Climbing Assistive Devices Right Railing Technique/Endurance Stair Climbing Direction Ascend and Descend Stair Climbing Technique Step Over Step Number of Steps Climbed 3 Query Text: Stair Climbing Set # Repetitions (reps) 4 Comments Stair Climbing Comments Pt present step over pattern without signs of acute distress and LOB. Pt uses R handrail. M5 PT-IP Objective Assessments Start: 06/14/18 10:27 Freq: NEEDED Status: Active Protocol: Document 06/14/18 10:27 [facility] (Rec: 06/14/18 10:33 [facility] [email or web address]) Orientation Orientation/Cognition Level of Alertness Lethargic Strength Lower Extremity Strength Assessment Bilaterally Impaired M6 PT-IP Treatment Start: 06/14/18 10:27 Freq: NEEDED Status: Active Protocol: Document 06/22/18 15:27 [facility] (Rec: 06/22/18 18:12 AB [id number]) Physical Therapy Treatment Education Education Provided Precautions Safety M7 PT-IP Assessment and Plan Start: 06/14/18 10:27 Freq: NEEDED Status: Active Protocol: Document 06/25/18 10:30 [facility] (Rec: 06/25/18 13:34 [email or web address]) PT Summary Assessment and Plan Summary Assessment Summary Pt reports her gait speed has increased Im around 50% of where i was at before.I tend to walk really fast. Pt grace tx well today with overall increase in mobility and activity tolerance. Pt also able negotiate stair with SBA 3 steps x 4 rounds 1 handrail. Pt did not c/o fatigue today after amb and able to sit to stand without UE support. Goals Bed Mobility Goal Independent Transfer Goal Independent Front Wheeled Walker Gait Goal Independent Front Wheel Walker Gait Distance 400 Other Goals up/down 10 steps with 1 rail amb without AD x 100 ft Frequency of Treatment Frequency Of Treatment Twice a Day Treatment Plan Physical Therapy Treatment Plan Bed Mobility Training Transfer Training Gait Training Therapeutic Exercise Balance Retraining Post Op Education Discharge Planning Other Recommendations and Next Treatment gait and stair training as grace Focus gait training without AD / SPC as grace Recommendations To Nursing Amount of Assist Needed Standby Assistance Discharge Recommendations PT Discharge Recommendations Home with Assistance Home Health Equipment Needed for Home Before may need FWW if D/C home Discharge
[2018-06-25] MEDS: ENOXAPARIN 40 MG/0.4 ML SYRINGE SUBCUT (13:48)
[2018-06-25] MEDS: HYDROMORPHONE 2 MG TABLET PO (14:53)
--- NOTE | 2018-06-25 15:12 | PT.IPTN ---
Current Diagnoses Intestinal adhesions [bands], unspecified as to partial versus complete obstruction (06/08/18) Surgery Performed Operation Date: 06/13/18 13:15 Actual Procedures p Exploratory Laparotomy, LYSIS OF ADHESIONS, Placement of gastrostomy tube(Not Applicable) - Tate Levy MD Physical Therapy Treatment Note M2 PT-IP Current Condition Start: 06/14/18 10:27 Freq: NEEDED Status: Active Protocol: Document 06/14/18 10:27 [facility] (Rec: 06/14/18 10:33 [facility] [email or web address]) Physical Therapy Current Condition Current Condition Evaluation Date 04/26/18 Treatment Diagnosis s/p exploratory laporotomy, weakness Precautions Abdominal Surgery Precautions Log Roll Lifting Restrictions Gait Belt above Incisional Area Weight Bearing Status Weight Bearing Status Full Weight Bearing M3 PT-IP Subjective Start: 06/14/18 10:27 Freq: NEEDED Status: Active Protocol: Document 06/25/18 15:06 [facility] (Rec: 06/25/18 15:12 [facility] [id number]) Subjective Physical Therapy Visit Type Type Patient Refusal Notes Pt refused stating she did a lot this morning with PT and was wanting to save energy for taking a shower. M4 PT-IP Mobility and Gait Start: 06/14/18 10:27 Freq: NEEDED Status: Active Protocol: Document 06/25/18 10:30 [facility] (Rec: 06/25/18 13:34 [facility] [email or web address]) PT-Bed Mobility Assessment Rolling Type of Rolling Log Rolling Roll to Left Level of Assist Standby Assistance Supine to Sit Supine to Sit Standby Assistance Bedrails Sit to Supine Sit to Supine Standby Assistance Bedrails Scooting Scooting to Edge of Bed Standby Assistance PT-Transfer Assessment Sit to and From Stand Sit to and from Stand Standby Assistance Use of Upper Extremities Equipment Transfer Assistive Device Gait Belt Front Wheeled Walker Orthotic/Prosthetic Devices or Brace: No Transfers Transfer Destination Bed Chair Bedside Commode Transfer Ability Level of Assist Standby Assistance Comments Mobility Comments Pt was seen in bed at first and transferred to EOB for gait training with SBA. She then amb back to commode by the window with SBA 1pa. Pt performed sit to stand or stand to sit without use of UE and AD today. She was able to rony and doff brief as well but require SHIPYARD PAINTER HELPER assist for cleaning from the back after toileting. Gait Assessment Gait Gait Assistance Required: Standby Assistance Distance (Feet) 400 Able to Maintain Weight Bearing Status Yes During Gait Assistive Devices Assistive Device Gait Belt Front Wheeled Walker Orthotic/Prosthetic Devices or Brace: No Gait Deviations General Gait Pattern Decreased Stride Length Decreased Feet Clearance Factors Limiting Gait Function Factors Limiting Gait Function Decreased Strength Limited Range of Motion Pain Poor Balance Comments Gait Comments Pt did not c/o fatigue and pain 11/19 after amb. Stair Climbing Assessment Evaluation Level of Assist On Stairs Contact Guard Assistance 1 Person Assistance Devices Stair Climbing Assistive Devices Right Railing Technique/Endurance Stair Climbing Direction Ascend and Descend Stair Climbing Technique Step Over Step Number of Steps Climbed 3 Query Text: Stair Climbing Set # Repetitions (reps) 4 Comments Stair Climbing Comments Pt present step over pattern without signs of acute distress and LOB. Pt uses R handrail. M5 PT-IP Objective Assessments Start: 06/14/18 10:27 Freq: NEEDED Status: Active Protocol: Document 06/14/18 10:27 [facility] (Rec: 06/14/18 10:33 [facility] [email or web address]) Orientation Orientation/Cognition Level of Alertness Lethargic Strength Lower Extremity Strength Assessment Bilaterally Impaired M6 PT-IP Treatment Start: 06/14/18 10:27 Freq: NEEDED Status: Active Protocol: Document 06/22/18 15:27 [facility] (Rec: 06/22/18 18:12 AB [id number]) Physical Therapy Treatment Education Education Provided Precautions Safety M7 PT-IP Assessment and Plan Start: 06/14/18 10:27 Freq: NEEDED Status: Active Protocol: Document 06/25/18 10:30 [facility] (Rec: 06/25/18 13:34 [email or web address]) PT Summary Assessment and Plan Summary Assessment Summary Pt reports her gait speed has increased Im around 50% of where i was at before.I tend to walk really fast. Pt grace tx well today with overall increase in mobility and activity tolerance. Pt also able negotiate stair with SBA 3 steps x 4 rounds 1 handrail. Pt did not c/o fatigue today after amb and able to sit to stand without UE support. Goals Bed Mobility Goal Independent Transfer Goal Independent Front Wheeled Walker Gait Goal Independent Front Wheel Walker Gait Distance 400 Other Goals up/down 10 steps with 1 rail amb without AD x 100 ft Frequency of Treatment Frequency Of Treatment Twice a Day Treatment Plan Physical Therapy Treatment Plan Bed Mobility Training Transfer Training Gait Training Therapeutic Exercise Balance Retraining Post Op Education Discharge Planning Other Recommendations and Next Treatment gait and stair training as grace Focus gait training without AD / SPC as grace Recommendations To Nursing Amount of Assist Needed Standby Assistance Discharge Recommendations PT Discharge Recommendations Home with Assistance Home Health Equipment Needed for Home Before may need FWW if D/C home Discharge
[2018-06-25] MEDS: ONDANSETRON 4 MG/2 ML INJ IV (16:13)
[2018-06-25] MEDS: HYDROMORPHONE 0.5 MG INJ IV (17:58)
[2018-06-25] MEDS: LYTES IV (18:10)
[2018-06-25] MEDS: DEXT IV (18:10)
[2018-06-25] MEDS: POTASSIUM CHLORIDE IV (18:10)
[2018-06-25] MEDS: CALCIUM IV (18:10)
[2018-06-25] MEDS: [UNRECOGNIZED DRUG - OTHER] IV (18:10)
[2018-06-25] MEDS: FAT EMULSIONS 50 GM/250 ML EMULSION IV (18:11)
[2018-06-25] MEDS: HYDROMORPHONE 2 MG TABLET 4 MG PO (20:30)
--- NOTE | 2018-06-25 21:57 | PC.NURSE ---
1500-assumed care of pt from outgoing shift. Pt awake and alert. states pain is tolerable at t his time. pt requesting to take a shower later. Pt sweaty and nauseous. given prns. Pt cooperative with nursing staff. pt became tearful and emotional with discussion about hospital stay and everything. Pt tolerating fluids well. did call md about pain medications. md radio communications mechanician switched them for pt. Pt refusing now to take a shower. dressing change completed. premeditated with ativan per md and pt request. will continue to monitor pt for safety. bed alarm on. pt calls appropriately.
[2018-06-25] MEDS: LORazepam 2 MG/ML SYRINGE 1 MG IV (22:12)
[2018-06-26] VITALS (14 sets, daily range): BP systolic 113–148; BP diastolic 65–82; PULSE 78–122; RESP 16–20; TEMP 36.2–37.8; O2SAT 96–100
[2018-06-26] MEDS: HYDROMORPHONE 2 MG TABLET 4 MG PO ×8 (00:01→23:48)
--- NOTE | 2018-06-26 00:27 | PC.NURSE ---
Addendum entered by Lisa Triplett R.N. 06/26/18 06:17: Provided warm blanket to abdomen and medicated with Dilaudid for 6/10 stomach/abdominal pain. Original Note: Addendum entered by Lisa Triplett R.N. 06/26/18 03:51: 0310 Medicated with Dilaudid for 4/10 abdominal pain. Patient has been sleeping most of shift. Original Note: Patient is alert and oriented. Breath sounds CTA with RA sat of 96%. HRR. Denies nausea. BT present but is not passing flatus and has not had a BM since 06/06. Dressing to abdomen is CDI. Gastrostomy tube to gravity with drainage pink tinged. Fistula tube to 20mm wall suction with yellow/thomas colored drainage. Using BSC to void and needs SBA to assist with tubing. Patient states she feels a little weak when up but appears steady. Denies dysuria, frequency, urgency or incontinence. Is able to turn self in bed. States abdominal pain is currently 5/10 so medicated with Dilaudid. TPN + Lipids infusing via DL PICC. Refused to wear SCD's at this time. CBG 115. Fall risk score is moderate but bed alarm not used as patient oriented and calls appropriately for assistance.
[2018-06-26] MEDS: VANCOMYCIN 1,000 MG/200 ML FROZ.PIGGY 200 MG IV ×3 (00:56→16:37)
[2018-06-26] MEDS: CLINDAMYCIN 600 MG/50 ML PIGGYBACK 50 MG IV ×3 (03:08→18:29)
[2018-06-26] MEDS: SODIUM CHLORIDE 0.9% 500 ML 21 ML IV (03:09)
--- NOTE | 2018-06-26 07:47 | PC.NURSE ---
Wound Ostomy Consult Note: Discussion with Dr. Levy I spoke with Dr Levy in his office about alternative ways to manage Ms. Reyes's fistula drainage. I brought materials regarding the Acelity Fistula Funnel and Wound [place] in conjunction with using a KCI/Acility Negative Pressure Wound Vac. At this point in the development of the fistula, the fistula is too deep to use a Fistula Funnel or Wound [place]. For now we will continue to manage the fistula out put with the catheter Dr. Chris devised, and continue daily wet to damp dressing changes in the wound bed.
[2018-06-26] MEDS: PANTOPRAZOLE 40 MG VIAL IV (08:59)
--- NOTE | 2018-06-26 10:05 | PT.IPTN ---
Current Diagnoses Intestinal adhesions [bands], unspecified as to partial versus complete obstruction (06/08/18) Surgery Performed Operation Date: 06/13/18 13:15 Actual Procedures p Exploratory Laparotomy, LYSIS OF ADHESIONS, Placement of gastrostomy tube(Not Applicable) - Tate Levy MD Physical Therapy Treatment Note M2 PT-IP Current Condition Start: 06/14/18 10:27 Freq: NEEDED Status: Active Protocol: Document 06/14/18 10:27 [facility] (Rec: 06/14/18 10:33 [facility] [email or web address]) Physical Therapy Current Condition Current Condition Evaluation Date 04/26/18 Treatment Diagnosis s/p exploratory laporotomy, weakness Precautions Abdominal Surgery Precautions Log Roll Lifting Restrictions Gait Belt above Incisional Area Weight Bearing Status Weight Bearing Status Full Weight Bearing M3 PT-IP Subjective Start: 06/14/18 10:27 Freq: NEEDED Status: Active Protocol: Document 06/26/18 10:01 [facility] (Rec: 06/26/18 10:05 [facility] [id number]) Subjective Physical Therapy Visit Type Type Patient Refusal Notes Pt adamently refused PT session today. Will check back with pt in PM.
[2018-06-26] MEDS: levoFLOXacin 750 MG/150 ML PIGGYBACK 100 MG IV (12:01)
--- NOTE | 2018-06-26 12:34 | CM.DPC ---
DCP/continued: Briefly reviewed chart. Spoke with Dr. Levy on 06-25-18 re: d/c plan. He reports that patient most likely will not be ready for d/c until end of this week beginning of next. TPN expected for home. IV abx unsure at this time. SCHOOL BUS ATTENDANT updated Kiran with [facility]. CM team to continue to follow closely. P: Home with HH when medically stable. [facility] and [facility] following. BRENDAN Lan
[2018-06-26] MEDS: LORazepam 2 MG/ML SYRINGE 1 MG IV ×2 (12:52→20:14)
[2018-06-26] MEDS: ENOXAPARIN 40 MG/0.4 ML SYRINGE SUBCUT (14:23)
--- NOTE | 2018-06-26 14:52 | PT.IPTN ---
Current Diagnoses Intestinal adhesions [bands], unspecified as to partial versus complete obstruction (06/08/18) Surgery Performed Operation Date: 06/13/18 13:15 Actual Procedures p Exploratory Laparotomy, LYSIS OF ADHESIONS, Placement of gastrostomy tube(Not Applicable) - Tate Levy MD Physical Therapy Treatment Note M2 PT-IP Current Condition Start: 06/14/18 10:27 Freq: NEEDED Status: Active Protocol: Document 06/14/18 10:27 [facility] (Rec: 06/14/18 10:33 [facility] [id number]) Physical Therapy Current Condition Current Condition Evaluation Date 04/26/18 Treatment Diagnosis s/p exploratory laporotomy, weakness Precautions Abdominal Surgery Precautions Log Roll Lifting Restrictions Gait Belt above Incisional Area Weight Bearing Status Weight Bearing Status Full Weight Bearing M3 PT-IP Subjective Start: 06/14/18 10:27 Freq: NEEDED Status: Active Protocol: Document 06/26/18 14:50 [facility] (Rec: 06/26/18 14:52 [facility] [id number]) Subjective Physical Therapy Visit Type Type Patient Refusal Notes Pt laying in bed shivering stated she was cold from her shower and that she had just been assisted by her RN and needed nothing at the moment but did not want to get up for therapy at this time. M4 PT-IP Mobility and Gait Start: 06/14/18 10:27 Freq: NEEDED Status: Active Protocol: Document 06/25/18 10:30 [facility] (Rec: 06/25/18 13:34 [facility] [id number]) PT-Bed Mobility Assessment Rolling Type of Rolling Log Rolling Roll to Left Level of Assist Standby Assistance Supine to Sit Supine to Sit Standby Assistance Bedrails Sit to Supine Sit to Supine Standby Assistance Bedrails Scooting Scooting to Edge of Bed Standby Assistance PT-Transfer Assessment Sit to and From Stand Sit to and from Stand Standby Assistance Use of Upper Extremities Equipment Transfer Assistive Device Gait Belt Front Wheeled Walker Orthotic/Prosthetic Devices or Brace: No Transfers Transfer Destination Bed Chair Bedside Commode Transfer Ability Level of Assist Standby Assistance Comments Mobility Comments Pt was seen in bed at first and transferred to EOB for gait training with SBA. She then amb back to commode by the window with SBA 1pa. Pt performed sit to stand or stand to sit without use of UE and AD today. She was able to rony and doff brief as well but require [employer] assist for cleaning from the back after toileting. Gait Assessment Gait Gait Assistance Required: Standby Assistance Distance (Feet) 400 Able to Maintain Weight Bearing Status Yes During Gait Assistive Devices Assistive Device Gait Belt Front Wheeled Walker Orthotic/Prosthetic Devices or Brace: No Gait Deviations General Gait Pattern Decreased Stride Length Decreased Feet Clearance Factors Limiting Gait Function Factors Limiting Gait Function Decreased Strength Limited Range of Motion Pain Poor Balance Comments Gait Comments Pt did not c/o fatigue and pain 11/19 after amb. Stair Climbing Assessment Evaluation Level of Assist On Stairs Contact Guard Assistance 1 Person Assistance Devices Stair Climbing Assistive Devices Right Railing Technique/Endurance Stair Climbing Direction Ascend and Descend Stair Climbing Technique Step Over Step Number of Steps Climbed 3 Query Text: Stair Climbing Set # Repetitions (reps) 4 Comments Stair Climbing Comments Pt present step over pattern without signs of acute distress and LOB. Pt uses R handrail. M5 PT-IP Objective Assessments Start: 06/14/18 10:27 Freq: NEEDED Status: Active Protocol: Document 06/14/18 10:27 [facility] (Rec: 06/14/18 10:33 [facility] [id number]) Orientation Orientation/Cognition Level of Alertness Lethargic Strength Lower Extremity Strength Assessment Bilaterally Impaired M6 PT-IP Treatment Start: 06/14/18 10:27 Freq: NEEDED Status: Active Protocol: Document 06/22/18 15:27 [facility] (Rec: 06/22/18 18:12 AB [id number]) Physical Therapy Treatment Education Education Provided Precautions Safety M7 PT-IP Assessment and Plan Start: 06/14/18 10:27 Freq: NEEDED Status: Active Protocol: Document 06/25/18 10:30 [facility] (Rec: 06/25/18 13:34 [id number]) PT Summary Assessment and Plan Summary Assessment Summary Pt reports her gait speed has increased Im around 50% of where i was at before.I tend to walk really fast. Pt grace tx well today with overall increase in mobility and activity tolerance. Pt also able negotiate stair with SBA 3 steps x 4 rounds 1 handrail. Pt did not c/o fatigue today after amb and able to sit to stand without UE support. Goals Bed Mobility Goal Independent Transfer Goal Independent Front Wheeled Walker Gait Goal Independent Front Wheel Walker Gait Distance 400 Other Goals up/down 10 steps with 1 rail amb without AD x 100 ft Frequency of Treatment Frequency Of Treatment Twice a Day Treatment Plan Physical Therapy Treatment Plan Bed Mobility Training Transfer Training Gait Training Therapeutic Exercise Balance Retraining Post Op Education Discharge Planning Other Recommendations and Next Treatment gait and stair training as grace Focus gait training without AD / SPC as grace Recommendations To Nursing Amount of Assist Needed Standby Assistance Discharge Recommendations PT Discharge Recommendations Home with Assistance Home Health Equipment Needed for Home Before may need FWW if D/C home Discharge
--- NOTE | 2018-06-26 15:11 | P.PN_ITS ---
Subjective Date Patient Seen: 06/26/18 Time Patient Seen: 15:05 Interval history: Carol is having severe chills and rigors while lying in the the bed this afternoon after recent shower. She is drinking ice water in volumes somewhat high in my opinion. Most of the output is through the G-tube but she is having no nausea or vomiting. States she feels thirsty. No chest pain or shortness of breath. No new abdominal pain. No dizziness or vertigo. No subjective fevers. Feeling somewhat more fatigued today however. No dysuria or hematuria. Exam Vital Signs (past 8 hours): - 06/26/18 07:46 06/26/18 07:53 06/26/18 12:00 Temperature 97.8 F 97.2 F L Pulse Rate 78 87 Respiratory Rate 20 18 Blood Pressure 122/65 136/80 Pulse Oximetry 97 97 100 06/26/18 14:46 Temperature 99 F Pulse Rate Respiratory Rate Blood Pressure Pulse Oximetry Oxygen Delivery Method Room Air Oxygen Flow Rate 0 Narrative Exam Narrative: Patient seen with the attending nurse She is lying under multiple blankets with the heater on high setting and shivering uncontrollably. She is alert oriented x3 however. Sclera nonicteric Chest clear to auscultation bilaterally. No tachycardia. No wheezes or crackles. Her PICC line dressing was changed last evening or early this morning and appeared fine. No erythema. She is receiving no new medications at the time of my visit. Abdomen soft and nondistended. Appropriately tender. Dressing has just been changed after her shower per the nursing staff and is currently clean, dry, and intact. She has adequate urine output Fistula catheter is draining approximately 150 cc although there was some time earlier today when the dressing was saturated as the suction was not applied to the catheter correctly. Extremities show no clubbing or cyanosis Objective Labs Result Diagrams: 06/25/18 05:58 06/25/18 05:58 Labs: Blood sugar is currently 88. Blood sugar was 112 at noon. Her vital signs are otherwise stable but she has no other new laboratory studies. No new culture data. Assessment & Plan Plan: Assessment/Plan Narrative: 53-year-old female with shaking chills of unclear etiology. She is not febrile and her white blood cell count was normal yesterday. We will repeat her CBC and complete metabolic panel tomorrow. I will obtain stat blood cultures currently. I do not suspect line sepsis although the PICC line has been in for 17 days now. Does not appear to be consistent with medication reaction or contamination. She does not appear septic. 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 I will continue the current broad-spectrum antibiotics as this appears to be affective with regard to her recent normal white blood cell count and lack of fevers. We will slow the volume of her oral intake as well. She continues to require TPN given the fistula as well as no bowel function since surgery. Doubt DVT, and we will continue DVT prophylaxis with Lovenox, ambulation, and sequential compression devices. If she continues to have these types of symptoms then will likely need to repeat her CT scan of the abdomen and pelvis. All the above discussed with her in detail. Questions were answered to her satisfaction, and she voiced understanding. Orders were written.
[2018-06-26] MEDS: ACETAMINOPHEN 325 MG TABLET 650 MG PO (18:16)
[2018-06-26] MEDS: SODIUM CHLORIDE 0.9% 1,000 ML 85 ML IV (18:17)
[2018-06-26] MEDS: INSULIN ASPART 100 UNIT/ML INSULN PEN SUBCUT (18:18)
[2018-06-26] MEDS: [UNRECOGNIZED DRUG - OTHER] IV (18:23)
[2018-06-26] MEDS: LYTES IV (18:23)
[2018-06-26] MEDS: DEXT IV (18:23)
[2018-06-26] MEDS: CALCIUM IV (18:23)
[2018-06-26] MEDS: POTASSIUM CHLORIDE IV (18:23)
--- NOTE | 2018-06-26 22:05 | PC.NURSE ---
1500- assumed care of pt. pt has multiple blankets on her. pt is sweaty but is shivering and shaking much less than she was earlier. pt cooperative with nursing staff. pt did spike a fever, given tylenol. spoke with md and orders rec'd regarding meds. pt dressing changed around 2100- suction set to 25mmHg. Pt tolerating. given pain meds per aug. pt drinking water. had a Popsicle. Pt fluids started. pt drain cleaned. suction was not draining well. md called and asked for advice. dressing changed. skin and wounds cleaned, wet to dry dressing applied. abd pads on top. then minimal medipore tape placed. suction seems to be working better after dressing changed. did go and check on it an hour after and dressing was still intact with no evidence of excess drainage on gauze packing. PT pre medicated with prn ativan, tolerated procedure well. pt has fan in room. pt still gets chilled when the covers are removed. fever did break after tylenol. Pt bed alarm on. instructed from MD to have pt do minimal movement tonight will eval in am.
[2018-06-27] MEDS: VANCOMYCIN 1,000 MG/200 ML FROZ.PIGGY 200 MG IV ×3 (00:56→17:59)
[2018-06-27] MEDS: CLINDAMYCIN 600 MG/50 ML PIGGYBACK 50 MG IV ×3 (02:56→19:10)
[2018-06-27 03:00] VITALS: BP 148/76; PULSE 99; RESP 19; TEMP 37.1; O2SAT 99
[2018-06-27] MEDS: HYDROMORPHONE 2 MG TABLET 4 MG PO ×5 (03:03→21:16)
--- NOTE | 2018-06-27 05:13 | PC.NURSE ---
Pt A&OX3. c/o chills around midnight, afebrile. denied nausea. btx4 active. no flatus. pt tolerating clear liquid diet. Gastrostomy tube had 1375cc out and fistula drain had 25cc out.
[2018-06-27] MEDS: SODIUM CHLORIDE 0.9% 1,000 ML 85 ML IV (06:10)
[2018-06-27 06:33] LABS: Add Manual Diff / Slide Review NO; Basophils Absolute Auto 0 /uL (0-100); Basophils Percent Auto 0.6 % (0-2); Eosinophils Absolute Auto 100 /uL (0-450); Eosinophils Percent Auto 1.1 % (2-4); Hematocrit 28.6 % (36-46); Hemoglobin 9.6 g/dL (12.0-16.0); Lymphocytes Absolute Auto 800 /uL (1100-4500); Lymphocytes Percent Auto 10.7 % (25-40); Mean Corpuscular HGB Conc 33.6 % (30-36); Mean Corpuscular Volume 83.2 fL (80-100); Monocytes Absolute Auto 600 /uL (0-900); Monocytes Percent Auto 7.2 % (3-14); Neutrophils Absolute Auto 6200 /uL (1500-7000); Neutrophils Percent Auto 80.4 % (50-75); Platelet Count 695 X10^3/uL (150-400); Red Blood Cell Count 3.43 X10^6/uL (4.0-5.2); Red Cell Distribution Width 16.1 % (11.6-14.8); White Blood Cell Count 7.7 X10^3/uL (4.5-11.0)
[2018-06-27 06:49] LABS: Alanine Aminotransferase 20 IU/L (9-52); Albumin Globulin Ratio 0.8 (1.0-2.8); Alkaline Phosphatase 92 U/L (38-126); Aspartate Aminotransferase 20 IU/L (14-36); Bilirubin Total 0.3 mg/dL (0.2-1.3); Blood Urea Nitrogen 14 mg/dL (7-17); Carbon Dioxide 26 mmol/L (22-32); Chloride 98 mmol/L (98-107); Estimated Glomerular Filt Rate > 60.0 mL/min (>60); Glucose 116 mg/dL (70-100); HEMOLYSIS < 15 (0-50); Magnesium 1.5 mg/dL (1.6-2.3); Potassium 4.3 mmol/L (3.4-5.1); Sodium 135 mmol/L (137-145)
[2018-06-27 07:00] VITALS: O2SAT 92
[2018-06-27 08:00] VITALS: BP 126/72; PULSE 91; RESP 16; TEMP 37.4; O2SAT 96
[2018-06-27] MEDS: HYDROMORPHONE 1 MG INJ IV (08:35)
[2018-06-27] MEDS: PANTOPRAZOLE 40 MG VIAL IV (08:37)
--- NOTE | 2018-06-27 08:44 | PM.PN.1 ---
Subjective Date Patient Seen: 06/27/18 Time Patient Seen: 08:44 Interval history: Patient no longer having rigors or chills. Episode resolved sometime last evening. Denies any subjective fevers. No chest pain or shortness of breath. Pain is actually diminished in well controlled with oral agents. No nausea or vomiting. No flatus or bowel function per rectum. Exam Vital Signs (past 8 hours): - 06/27/18 03:00 Temperature 98.8 F Pulse Rate 99 H Respiratory Rate 19 Blood Pressure 148/76 H Pulse Oximetry 99 Oxygen Delivery Method Room Air Oxygen Flow Rate 0 Narrative Exam Narrative: Patient seen and examined with the attending nurse, Karime Stoddard Chest clear to auscultation bilaterally with regular rate rhythm. No murmurs. No crackles or wheezes. PICC line site in the left upper extremity appears clean and intact without erythema. Line is functioning well. Abdomen is soft and nondistended. She is appropriately tender around the open wound but certainly without guarding or rebound. Gastrostomy tube site is clean and intact. Tube is draining well and is mostly clear gastric fluid. Output, however, is significant due to patient's oral intake of mostly ice water. She is consuming approximately 1.5-2 L per day. Fistula catheter is draining obvious stool into the canister and is somewhat difficult to quantitate. However, canister contains about 600 cc currently. Extremities show no clubbing or cyanosis I personally change the dressing today and meticulously examined the wound bed after the patient was premedicated with Ativan and Dilaudid. She tolerated this quite well. The existing packing has been in place since approximately 6:00 p.m. last evening. There is minimal to no soilage on the packing. Catheter site looks intact. I see no evidence of any new fistulas along the wound bed. The superior aspect of the wound still has boyd in place and appears intact without erythema or other abnormalities. The wound bed itself is granulating nicely and has minimal soilage inferior to the fistula site. I examined the area down to the fascia at this level and again saw no other abnormalities. The fistula itself is not yet matured. This will take some period of time. Replaced the wet-to-dry packing in the wound bed and covered the area with ABDs which she again tolerated well. Objective Labs Result Diagrams: 06/27/18 06:13 06/27/18 06:13 Labs: Laboratory Results - last 24 hr 06/27/18 06/27/18 06:13 06:13 WBC 7.7 RBC 3.43 L Hgb 9.6 L Hct 28.6 L MCV 83.2 MCH 28.0 MCHC 33.6 RDW 16.1 H Plt Count 695 H Neut % (Auto) 80.4 H Lymph % (Auto) 10.7 L [place] % (Auto) 7.2 Eos % (Auto) 1.1 L Baso % (Auto) 0.6 Neut # (Auto) 6200 Lymph # (Auto) 800 L [place] # (Auto) 600 Eos # (Auto) 100 Baso # (Auto) 0 Sodium 135 L Potassium 4.3 Chloride 98 Carbon Dioxide 26 BUN 14 Creatinine 0.70 Estimated GFR > 60.0 BUN/Creatinine Ratio 20.0 Glucose 116 H Calcium 9.0 Magnesium 1.5 L Total Bilirubin 0.3 AST 20 ALT 20 Alkaline Phosphatase 92 Total Protein 7.0 Albumin 3.0 L Globulin 4.0 Albumin/Globulin Ratio 0.8 L No significant leukocytosis and her hemoglobin remained stable. Her electrolytes are actually essentially normal. Magnesium is slightly low and we will supplement. No new culture data. Blood culture sent yesterday are preliminary but remain negative to date. 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 Her wound is healing nicely and I see no evidence of undrained cavities or obvious wound or soft tissue infection. Certainly no evidence of fasciitis. Her skin is well protected with the adjacent barrier and there is no evidence of excoriation or cellulitis. I highly doubt intra-abdominal abscess given that her maximal temperature was a 100.1? which resolved after Tylenol and her white blood cell count remains normal. I see no evidence of any new fistulas. Small possibility of line sepsis, and I suspect the PICC line will need to be removed and changed to another site soon. Continue current antibiotic coverage based on wound cultures. Await blood culture results. I see no indications for CT scan of the abdomen at this time as my suspicion for intra-abdominal abscess or other pathology is quite low based on her current clinical status. We will begin to cycle the TPN at the current formula. Lipids have been ordered for today as well. I am hopeful that she will have at least 8 hr throughout the daytime without intravenous infusion in preparation for home therapy. Continue to be out of bed as tolerated. Continue current dressing changes. Once the fistula is matured we will likely move to a wound VAC on the inferior aspect of the wound and a pouch system over the fistula itself. I have also instructed her to significantly limit the amount of oral intake. I will restrict her to 500 cc per shift currently and see how the fistula output response. Leave the gastrostomy tube to gravity in the interim. I suspect she will be in the hospital at least until next week while all the above issues are addressed. All questions were otherwise answered to her satisfaction, and she voiced understanding. Case was reviewed with the attending nurse. Orders were written.
--- NOTE | 2018-06-27 09:28 | PC.NURSE ---
Addendum entered by Karime Stoddard R.N. 06/27/18 14:59: Pt cooperative with 500mls PO intake. Denies nausea, but flat affect Original Note: Addendum entered by Karime Stoddard R.N. 06/27/18 11:04: PT unsure of current mobility orders, clarified with Dr Levy's RN in clinic, order obtained. Original Note: Am shift note Pt is A/o x3, reports less chills/shaking today. Afebrile. Dr Levy into see Pt, wet to dry dressing change done to assess fistula, POC for decreased PO intake reviewed with Pt. Lungs clear, TPN infusing to PICC in L UE.
[2018-06-27] MEDS: MAGNESIUM SULFATE 2 GM/50 ML PIGGYBACK IV (10:24)
--- NOTE | 2018-06-27 12:07 | PT.IPTN ---
Current Diagnoses Intestinal adhesions [bands], unspecified as to partial versus complete obstruction (06/08/18) Surgery Performed Operation Date: 06/13/18 13:15 Actual Procedures p Exploratory Laparotomy, LYSIS OF ADHESIONS, Placement of gastrostomy tube(Not Applicable) - Tate Levy MD Physical Therapy Treatment Note M2 PT-IP Current Condition Start: 06/14/18 10:27 Freq: NEEDED Status: Active Protocol: Document 06/14/18 10:27 [facility] (Rec: 06/14/18 10:33 [facility] [id number]) Physical Therapy Current Condition Current Condition Evaluation Date 04/26/18 Treatment Diagnosis s/p exploratory laporotomy, weakness Precautions Abdominal Surgery Precautions Log Roll Lifting Restrictions Gait Belt above Incisional Area Weight Bearing Status Weight Bearing Status Full Weight Bearing M3 PT-IP Subjective Start: 06/14/18 10:27 Freq: NEEDED Status: Active Protocol: Document 06/27/18 12:06 [facility] (Rec: 06/27/18 12:07 [facility] [id number]) Subjective Physical Therapy Visit Type Type Patient Refusal Notes Pt refused states that she had a bad night and reports MD doesn't want her to get up this AM. Inform RN. Amount of Assist Needed Standby Assistance Discharge Recommendations PT Discharge Recommendations Home with Assistance Home Health Equipment Needed for Home Before may need FWW if D/C home Discharge
[2018-06-27 15:00] VITALS: O2SAT 97
[2018-06-27 15:10] VITALS: BP 115/74; PULSE 92; RESP 18; TEMP 36.8; O2SAT 97
--- NOTE | 2018-06-27 15:30 | PT.IPTN ---
Current Diagnoses Intestinal adhesions [bands], unspecified as to partial versus complete obstruction (06/08/18) Surgery Performed Operation Date: 06/13/18 13:15 Actual Procedures p Exploratory Laparotomy, LYSIS OF ADHESIONS, Placement of gastrostomy tube(Not Applicable) - Tate Levy MD Physical Therapy Treatment Note M2 PT-IP Current Condition Start: 06/14/18 10:27 Freq: NEEDED Status: Active Protocol: Document 06/14/18 10:27 [facility] (Rec: 06/14/18 10:33 [facility] [id number]) Physical Therapy Current Condition Current Condition Evaluation Date 04/26/18 Treatment Diagnosis s/p exploratory laporotomy, weakness Precautions Abdominal Surgery Precautions Log Roll Lifting Restrictions Gait Belt above Incisional Area Weight Bearing Status Weight Bearing Status Full Weight Bearing M3 PT-IP Subjective Start: 06/14/18 10:27 Freq: NEEDED Status: Active Protocol: Document 06/27/18 15:29 [facility] (Rec: 06/27/18 15:30 [facility] [id number]) Subjective Physical Therapy Visit Type Notes Hold per RN, pt activity orders for BSC only no ambulation. Will see when medically stable. Recommendations To Nursing Amount of Assist Needed Standby Assistance Discharge Recommendations PT Discharge Recommendations Home with Assistance Home Health Equipment Needed for Home Before may need FWW if D/C home Discharge
[2018-06-27] MEDS: levoFLOXacin 750 MG/150 ML PIGGYBACK 100 MG IV (15:39)
[2018-06-27] MEDS: ENOXAPARIN 40 MG/0.4 ML SYRINGE SUBCUT (15:42)
[2018-06-27 17:34] LABS: Vancomycin Trough 16.5 ug/mL (10-20)
[2018-06-27] MEDS: VANCOMYCIN TROUGH 1 REQUEST MISC (17:55)
[2018-06-27] MEDS: LYTES IV (18:07)
[2018-06-27] MEDS: CALCIUM IV (18:07)
[2018-06-27] MEDS: DEXT IV (18:07)
[2018-06-27] MEDS: [UNRECOGNIZED DRUG - OTHER] IV (18:07)
[2018-06-27] MEDS: FAT EMULSIONS 50 GM/250 ML EMULSION IV (18:07)
[2018-06-27] MEDS: POTASSIUM CHLORIDE IV (18:07)
[2018-06-27] MEDS: LORazepam 2 MG/ML SYRINGE 1 MG IV (20:40)
[2018-06-27 21:00] VITALS: BP 121/66; PULSE 83; RESP 18; TEMP 36.9
[2018-06-28] VITALS (9 sets, daily range): BP systolic 107–137; BP diastolic 71–85; PULSE 81–93; RESP 18–93; TEMP 36.4–37; O2SAT 96–98
[2018-06-28] MEDS: HYDROMORPHONE 2 MG TABLET 4 MG PO ×7 (00:34→22:30)
[2018-06-28] MEDS: VANCOMYCIN 1,000 MG/200 ML FROZ.PIGGY 200 MG IV ×3 (00:40→17:24)
[2018-06-28] MEDS: CLINDAMYCIN 600 MG/50 ML PIGGYBACK 50 MG IV ×3 (02:41→18:29)
[2018-06-28] MEDS: SODIUM CHLORIDE 0.9% 1,000 ML 85 ML IV ×2 (02:41→11:42)
--- NOTE | 2018-06-28 08:25 | PM.PN.1 ---
Subjective Date Patient Seen: 06/28/18 Time Patient Seen: 08:26 Interval history: Patient had a relatively quiet night. No significant pain. She slept relatively well. No further fever or chills. No rigors. No dysuria or hematuria. She has been somewhat fatigued and clearly depressed over the entire situation, but she is handling this relatively well. Last dressing change was on evening shift yesterday. She continues to tolerate dressing changes quite well. No nausea or vomiting. She is adhering to the 500 cc per shift water restriction. Denies chest pain or shortness of breath. Exam Vital Signs (past 8 hours): - 06/28/18 00:35 06/28/18 01:00 06/28/18 06:00 Temperature 98.0 F 97.9 F Pulse Rate 84 82 Respiratory Rate 18 18 Blood Pressure 115/72 117/73 Pulse Oximetry 98 98 96 Oxygen Delivery Method Room Air Oxygen Flow Rate 0 Narrative Exam Narrative: Patient remains afebrile without tachycardia. She is lying in bed this morning in no acute distress. Alert oriented x3 Chest clear to auscultation bilaterally without crackles or wheezes Abdomen is soft and nondistended. She is appropriately tender. Gastrostomy tube site remains clean without erythema or drainage. Fluid in the drainage bag is essentially clear without bile. Superior aspect of the wound is clean and intact. No erythema or drainage from this area above the umbilicus. I removed the boyd today which she tolerated. The existing dressing is actually very clean without any significant soilage. I therefore left this in place that she will be out of bed to shower later this morning. Dressing will be changed at that time. Catheter remains in good position within the fistula draining succus. Total output from the fistula appeared to be approximately 650 cc yesterday. Abdominal wall skin remains clean without excoriation or erythema. Extremities show no clubbing, cyanosis, or edema Objective Labs Result Diagrams: 06/27/18 06:13 06/27/18 06:13 Labs: Laboratory Results - last 24 hr 06/27/18 16:30 Vancomycin Trough 16.5 blood cultures continue to show no growth to date. No other new culture data or laboratory studies. 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 Output remains slightly high but acceptable. I believe we are maintaining fluid balance as we monitor her losses versus intake with the TPN. She is also receiving normal saline infusion with the TPN. I have discussed her situation with pharmacy and we will add the normal saline to the TPN bag for total of approximately 3 L and cycle this over 16 hr infusion so that she can be off during the day for about 8 hr. This is the tentative plan for home TPN infusion. Continue oral fluid restriction. Convert to oral medications including her baseline home lisinopril. Stop the IV metoprolol which she really has not been receiving lately. I strongly encouraged her to be out of bed and ambulating with physical therapy. Shower as above. Continue aggressive pulmonary toilet. Continue vancomycin, clindamycin, and Levaquin for enterococcus and Bacteroides. See no signs of sepsis or other ongoing infection at this time. I suspect she will need her PICC line changed prior to discharge. Tentatively foresee discharged home next week perhaps. I have discussed the case with discharge coordinators to arrange home health with home TPN via PICC line infusion. Cycle will be as above. She will also need daily dressing changes. I anticipate the need for home suction device for the fistula catheter as well. She requires physical therapy and occupational therapy due to her physical debilitation for prolonged hospitalizations and postoperative rehabilitation as well. I doubt she will need intravenous antibiotics at home barring any new unforeseen septic sources. I discussed all the above with the patient at length. All questions were answered to her satisfaction, and she voiced understanding. Orders were written.
--- NOTE | 2018-06-28 11:28 | PT.IPTN ---
Current Diagnoses Intestinal adhesions [bands], unspecified as to partial versus complete obstruction (06/08/18) Surgery Performed Operation Date: 06/13/18 13:15 Actual Procedures p Exploratory Laparotomy, LYSIS OF ADHESIONS, Placement of gastrostomy tube(Not Applicable) - Tate Levy MD Physical Therapy Treatment Note M2 PT-IP Current Condition Start: 06/14/18 10:27 Freq: NEEDED Status: Active Protocol: Document 06/14/18 10:27 [facility] (Rec: 06/14/18 10:33 [facility] [id number]) Physical Therapy Current Condition Current Condition Evaluation Date 04/26/18 Treatment Diagnosis s/p exploratory laporotomy, weakness Precautions Abdominal Surgery Precautions Log Roll Lifting Restrictions Gait Belt above Incisional Area Weight Bearing Status Weight Bearing Status Full Weight Bearing M3 PT-IP Subjective Start: 06/14/18 10:27 Freq: NEEDED Status: Active Protocol: Document 06/28/18 11:27 SA (Rec: 06/28/18 11:28 SA [id number]) Subjective Physical Therapy Visit Type Type Patient Refusal Notes Pt just finished shower and waiting for dressing change, declines PT but willing to do this afternoon. Patient Questionnaires Patient Questionnaires As per MD note from Dr. Levy today, pt is to get up and ambulate with PT, daily. M4 PT-IP Mobility and Gait Start: 06/14/18 10:27 Freq: NEEDED Status: Active Protocol: Document 06/25/18 10:30 [facility] (Rec: 06/25/18 13:34 [id number]) PT-Bed Mobility Assessment Rolling Type of Rolling Log Rolling Roll to Left Level of Assist Standby Assistance Supine to Sit Supine to Sit Standby Assistance Bedrails Sit to Supine Sit to Supine Standby Assistance Bedrails Scooting Scooting to Edge of Bed Standby Assistance PT-Transfer Assessment Sit to and From Stand Sit to and from Stand Standby Assistance Use of Upper Extremities Equipment Transfer Assistive Device Gait Belt Front Wheeled Walker Orthotic/Prosthetic Devices or Brace: No Transfers Transfer Destination Bed Chair Bedside Commode Transfer Ability Level of Assist Standby Assistance Comments Mobility Comments Pt was seen in bed at first and transferred to EOB for gait training with SBA. She then amb back to commode by the window with SBA 1pa. Pt performed sit to stand or stand to sit without use of UE and AD today. She was able to rony and doff brief as well but require COLLECTIONS ANALYST assist for cleaning from the back after toileting. Gait Assessment Gait Gait Assistance Required: Standby Assistance Distance (Feet) 400 Able to Maintain Weight Bearing Status Yes During Gait Assistive Devices Assistive Device Gait Belt Front Wheeled Walker Orthotic/Prosthetic Devices or Brace: No Gait Deviations General Gait Pattern Decreased Stride Length Decreased Feet Clearance Factors Limiting Gait Function Factors Limiting Gait Function Decreased Strength Limited Range of Motion Pain Poor Balance Comments Gait Comments Pt did not c/o fatigue and pain 11/19 after amb. Stair Climbing Assessment Evaluation Level of Assist On Stairs Contact Guard Assistance 1 Person Assistance Devices Stair Climbing Assistive Devices Right Railing Technique/Endurance Stair Climbing Direction Ascend and Descend Stair Climbing Technique Step Over Step Number of Steps Climbed 3 Query Text: Stair Climbing Set # Repetitions (reps) 4 Comments Stair Climbing Comments Pt present step over pattern without signs of acute distress and LOB. Pt uses R handrail. M5 PT-IP Objective Assessments Start: 06/14/18 10:27 Freq: NEEDED Status: Active Protocol: Document 06/14/18 10:27 [facility] (Rec: 06/14/18 10:33 [facility] [id number]) Orientation Orientation/Cognition Level of Alertness Lethargic Strength Lower Extremity Strength Assessment Bilaterally Impaired M6 PT-IP Treatment Start: 06/14/18 10:27 Freq: NEEDED Status: Active Protocol: Document 06/22/18 15:27 AB (Rec: 06/22/18 18:12 AB [id number]) Physical Therapy Treatment Education Education Provided Precautions Safety M7 PT-IP Assessment and Plan Start: 06/14/18 10:27 Freq: NEEDED Status: Active Protocol: Document 06/25/18 10:30 [facility] (Rec: 06/25/18 13:34 [id number]) PT Summary Assessment and Plan Summary Assessment Summary Pt reports her gait speed has increased Im around 50% of where i was at before.I tend to walk really fast. Pt grace tx well today with overall increase in mobility and activity tolerance. Pt also able negotiate stair with SBA 3 steps x 4 rounds 1 handrail. Pt did not c/o fatigue today after amb and able to sit to stand without UE support. Goals Bed Mobility Goal Independent Transfer Goal Independent Front Wheeled Walker Gait Goal Independent Front Wheel Walker Gait Distance 400 Other Goals up/down 10 steps with 1 rail amb without AD x 100 ft Frequency of Treatment Frequency Of Treatment Twice a Day Treatment Plan Physical Therapy Treatment Plan Bed Mobility Training Transfer Training Gait Training Therapeutic Exercise Balance Retraining Post Op Education Discharge Planning Other Recommendations and Next Treatment gait and stair training as grace Focus gait training without AD / SPC as grace Recommendations To Nursing Amount of Assist Needed Standby Assistance Discharge Recommendations PT Discharge Recommendations Home with Assistance Home Health Equipment Needed for Home Before may need FWW if D/C home Discharge
[2018-06-28] MEDS: LISINOPRIL 10 MG TABLET PO (11:36)
[2018-06-28] MEDS: LORazepam 2 MG/ML SYRINGE 1 MG IV (11:39)
--- NOTE | 2018-06-28 13:05 | CM.DPC ---
Addendum entered by BRENDAN Verde 06/29/18 14:11: Discussed w/ RN DC Quality Audit Representative Ashlee the idea of transitioning pt's DC coordination from the Shared Services And Outsourcing Manager's desk to the nurse's desk; AUTOMATIC EDGER team will keep at this time. Original Note: DCP Cont: Received update this morning from Dr Levy via AUTOMATIC EDGER DC systems planner Mary; DC not anticipated until next week, at the earliest. Reviewed chart. TC placed to Ayush at [facility], P# [phone], faxed updated prog note and wound care consult notes. Requested a deeper investigation from [facility] into their nursing capabilities using pt's CH[facility] coverage; outpt needs include daily dressing changes. Ayush alerting his clinical manager of international, they need to review. Ayush will f/u w/this AUTOMATIC EDGER w/more information. At this time, Dr Levy anticipating pt will require ongoing daily TPN, 16 hr infusion w/ 8 hrs off, TPN covered 100% according to [facility]. Daily wound dressing changes and PT/OT for continued strengthening. Dr Levy indicates need for home suction device for the fistula catheter as well. Moving forward; d/t pt's clinically complicated medical course, it'd be best to transfer discharge planning responsibilities to the RN DC Quality Audit Representative, will discuss w/ team. MARCO
[2018-06-28] MEDS: levoFLOXacin 750 MG/150 ML PIGGYBACK 100 MG IV (13:06)
[2018-06-28] MEDS: ENOXAPARIN 40 MG/0.4 ML SYRINGE SUBCUT (13:07)
--- NOTE | 2018-06-28 15:56 | PT.IPTN ---
Current Diagnoses Intestinal adhesions [bands], unspecified as to partial versus complete obstruction (06/08/18) Surgery Performed Operation Date: 06/13/18 13:15 Actual Procedures p Exploratory Laparotomy, LYSIS OF ADHESIONS, Placement of gastrostomy tube(Not Applicable) - Tate Levy MD Physical Therapy Treatment Note M2 PT-IP Current Condition Start: 06/14/18 10:27 Freq: NEEDED Status: Active Protocol: Document 06/14/18 10:27 [facility] (Rec: 06/14/18 10:33 [facility] [id number]) Physical Therapy Current Condition Current Condition Evaluation Date 04/26/18 Treatment Diagnosis s/p exploratory laporotomy, weakness Precautions Abdominal Surgery Precautions Log Roll Lifting Restrictions Gait Belt above Incisional Area Weight Bearing Status Weight Bearing Status Full Weight Bearing M3 PT-IP Subjective Start: 06/14/18 10:27 Freq: NEEDED Status: Active Protocol: Document 06/28/18 15:42 SA (Rec: 06/28/18 15:56 [id number]) Subjective Physical Therapy Visit Type Type Treatment Note Visit Start Time 15:12 Visit Stop Time 15:30 Total Visit Minutes 18 Notes Pt agreeable to PT this afternoon. Physical Therapy Visit Comments Patient Comments Pt reports feeling tired/ groggy. Therapy Pain Assessment Pain When Pain Assessed During Mobility Pain Present Pain Present Pain Reported Location Bilateral Lower Abdomen Intensity 5 Scale Used Numeric (1 - 10) Pain Management Techniques Apply Heat Modification of Treatment Timing of Activity with Medications M4 PT-IP Mobility and Gait Start: 06/14/18 10:27 Freq: NEEDED Status: Active Protocol: Document 06/28/18 15:42 SA (Rec: 06/28/18 15:56 [id number]) PT-Bed Mobility Assessment Rolling Type of Rolling Roll to Right Level of Assist Standby Assistance Supine to Sit Supine to Sit Standby Assistance Sit to Supine Sit to Supine Standby Assistance Scooting Scooting to Edge of Bed Standby Assistance PT-Transfer Assessment Sit to and From Stand Sit to and from Stand Standby Assistance Equipment Transfer Assistive Device Gait Belt Front Wheeled Walker Orthotic/Prosthetic Devices or Brace: No Transfers Transfer Destination Bed Bedside Commode Transfer Technique Stand Step Pivot Transfer Ability Level of Assist Standby Assistance Comments Mobility Comments Pt SBA-IND with mobility tasks , needs cues for slowing down as she is not always aware of lines. Gait Assessment Gait Gait Assistance Required: Standby Assistance 1 Person Assist Distance (Feet) 300 Able to Maintain Weight Bearing Status Yes During Gait Assistive Devices Assistive Device Front Wheeled Walker Orthotic/Prosthetic Devices or Brace: No Gait Deviations General Gait Pattern Within Normal Limits Comments Gait Comments Pt ambulates at fast speed, with good foot clearance and step length. Cues to slow down as this therapist was managing IV pole. Pt rates abdominal pain as 5/10 with gait. M5 PT-IP Objective Assessments Start: 06/14/18 10:27 Freq: NEEDED Status: Active Protocol: Document 06/14/18 10:27 [facility] (Rec: 06/14/18 10:33 [facility] [id number]) Orientation Orientation/Cognition Level of Alertness Lethargic Strength Lower Extremity Strength Assessment Bilaterally Impaired M6 PT-IP Treatment Start: 06/14/18 10:27 Freq: NEEDED Status: Active Protocol: Document 06/28/18 15:42 SA (Rec: 06/28/18 15:56 SA [id number]) Physical Therapy Treatment Exercises Exercises Ankle Pumps Heel Slides Education Education Provided Safety M7 PT-IP Assessment and Plan Start: 06/14/18 10:27 Freq: NEEDED Status: Active Protocol: Document 06/28/18 15:42 SA (Rec: 06/28/18 15:56 [id number]) PT Summary Assessment and Plan Summary Assessment Summary Pt difficult to engage, SBA with mobility tasks and fairly safe with FWW use although is impulsive. Frequency of Treatment Frequency Of Treatment Twice a Day Treatment Plan Physical Therapy Treatment Plan Gait Training Therapeutic Exercise Post Op Education Discharge Planning Hot or Cold Pack Recommendations To Nursing Amount of Assist Needed 1 Person Assist Discharge Recommendations PT Discharge Recommendations Home with Assistance
[2018-06-28] MEDS: SODIUM CHLORIDE 0.9% IV (18:29)
[2018-06-28] MEDS: CALCIUM IV (18:29)
[2018-06-28] MEDS: LYTES IV (18:29)
[2018-06-28] MEDS: DEXT IV (18:29)
[2018-06-28] MEDS: [UNRECOGNIZED DRUG - OTHER] IV (18:29)
[2018-06-29] VITALS (7 sets, daily range): BP systolic 102–137; BP diastolic 63–78; PULSE 87–93; RESP 18–20; TEMP 36.4–36.9; O2SAT 97–98
[2018-06-29] MEDS: VANCOMYCIN 1,000 MG/200 ML FROZ.PIGGY 200 MG IV ×3 (00:46→16:24)
[2018-06-29] MEDS: LORazepam 2 MG/ML SYRINGE 1 MG IV ×4 (00:57→21:56)
[2018-06-29] MEDS: HYDROMORPHONE 2 MG TABLET 4 MG PO ×7 (01:38→21:56)
[2018-06-29] MEDS: CLINDAMYCIN 600 MG/50 ML PIGGYBACK 50 MG IV ×3 (03:14→18:26)
--- NOTE | 2018-06-29 05:06 | PC.NURSE ---
Pt A&OX3. 97%RA. LS:Clear. denied chest pain. btx4 hypo, passing small amt of gas. CMS+.PP+. encouraged pt to ambulate to the [facility] or . TPN infusing at 203cc/hr when I checked at 2345. Gastrostomy: 150cc out. Fistula drain: 5cc out. call light in reach. bed alarm active.
[2018-06-29] MEDS: PANTOPRAZOLE 40 MG PACKET PO (06:21)
[2018-06-29 07:41] LABS: Hematocrit 30.6 % (36-46); Hemoglobin 10.1 g/dL (12.0-16.0); Red Blood Cell Count 3.67 X10^6/uL (4.0-5.2)
[2018-06-29 07:46] LABS: Add Manual Diff / Slide Review YES; Blood Urea Nitrogen 14 mg/dL (7-17); Calcium 8.6 mg/dL (8.4-10.2); Carbon Dioxide 26 mmol/L (22-32); Chloride 103 mmol/L (98-107); Estimated Glomerular Filt Rate > 60.0 mL/min (>60); Glucose 115 mg/dL (70-100); HEMOLYSIS < 15 (0-50); Mean Corpuscular HGB Conc 33.1 % (30-36); Mean Corpuscular Hemoglobin 27.6 PG (26-34); Mean Corpuscular Volume 83.5 fL (80-100); Platelet Count 643 X10^3/uL (150-400); Potassium 4.7 mmol/L (3.4-5.1); Red Cell Distribution Width 15.7 % (11.6-14.8); Sodium 138 mmol/L (137-145); White Blood Cell Count 7.6 X10^3/uL (4.5-11.0)
[2018-06-29] MEDS: LISINOPRIL 10 MG TABLET PO (07:54)
[2018-06-29 08:33] LABS: Neutrophils Absolute Manual 4104 /uL (3000-5900); Total Cells Counted 100
[2018-06-29 08:34] LABS: Platelet Estimate Increased on smear
--- NOTE | 2018-06-29 10:36 | PT.IPTN ---
Current Diagnoses Intestinal adhesions [bands], unspecified as to partial versus complete obstruction (06/08/18) Surgery Performed Operation Date: 06/13/18 13:15 Actual Procedures p Exploratory Laparotomy, LYSIS OF ADHESIONS, Placement of gastrostomy tube(Not Applicable) - Tate Levy MD Physical Therapy Treatment Note M2 PT-IP Current Condition Start: 06/14/18 10:27 Freq: NEEDED Status: Active Protocol: Document 06/14/18 10:27 [facility] (Rec: 06/14/18 10:33 [facility] [id number]) Physical Therapy Current Condition Current Condition Evaluation Date 04/26/18 Treatment Diagnosis s/p exploratory laporotomy, weakness Precautions Abdominal Surgery Precautions Log Roll Lifting Restrictions Gait Belt above Incisional Area Weight Bearing Status Weight Bearing Status Full Weight Bearing M3 PT-IP Subjective Start: 06/14/18 10:27 Freq: NEEDED Status: Active Protocol: Document 06/29/18 10:36 [facility] (Rec: 06/29/18 12:36 [facility] [email or web address]) Subjective Physical Therapy Visit Type Type Patient Refusal Notes Pt refused states she needs a dressing change and been having leaking. Will see in PM Amount of Assist Needed 1 Person Assist Discharge Recommendations PT Discharge Recommendations Home with Assistance
[2018-06-29] MEDS: levoFLOXacin 750 MG/150 ML PIGGYBACK 100 MG IV (12:41)
--- NOTE | 2018-06-29 14:01 | CM.DPNOTE ---
Addendum entered by BRENDAN Verde 06/30/18 14:47: Citalopram started per nurse coordinator Doretha. Functionally, pt moving well through the halls, wound continues to be very acute. Doretha states in morning rounds TPN has been DC (?) although prog note 1.18.19 states TPN continues. VOCATIONAL SCHOOL TEACHER team will need to f/u w/ Surgical providers to understand POC more clearly. Goals of hospital stay? Goals for DC ? Following closely. Original Note: Reviewed this referral with alexandro Reyes RN and clinical hospital manager. Had lengthy conversation. After reviewing this referral, Amy is concerned that pt's current outpt needs are too acute for their staffing abilities. Pt is allowed 6 total therapy visits per calendar year and daily nursing visits will essentially be donation since alexandro SALDANA will not be reimbursed by [facility] for daily dressing changes and following for PICC management and likely lab management d/t TPN. Amy requests the DC Planning team update her at P# [phone] next week to discuss this referral again. Amy also concerned about pt going home w/a suction device; who will help pt manage all of these acute care needs. This VOCATIONAL SCHOOL TEACHER wonders if home is realistic (?) Should SNF option be reviewed w/pt (?) Pt having a very difficult time today, teary and not very motivated to move or be up; spirits are very low. This VOCATIONAL SCHOOL TEACHER made myself available to pt through [facility]. Will stay out of pt's room as not to overwhelm her further. BRENDAN Verde
--- NOTE | 2018-06-29 14:34 | PC.NURSE ---
Pt tearful during the morning. Given PO dilaudid for pain control but requesting IV - to discuss with surgeon next time he rounds. Made sure that suction was turned off for 30 minutes when administered. Noted minimal drainage in both gastrostomy bag and fistula drainage bag. Complains of cramping pain - has not passed flatus. Encouraged to ambulate but pt keeps putting it off. Plan to work soon with PT once when hep locked. Dressing to abdomen changed with wet gauze placed in wound and dry pads placed over the top secured with tape. Pt tolerated well. Given Ativan prior to dressing change at pt's request.
--- NOTE | 2018-06-29 15:34 | PT.IPTN ---
Current Diagnoses Intestinal adhesions [bands], unspecified as to partial versus complete obstruction (06/08/18) Surgery Performed Operation Date: 06/13/18 13:15 Actual Procedures p Exploratory Laparotomy, LYSIS OF ADHESIONS, Placement of gastrostomy tube(Not Applicable) - Tate Lvey MD Physical Therapy Treatment Note M2 PT-IP Current Condition Start: 06/14/18 10:27 Freq: NEEDED Status: Active Protocol: Document 06/14/18 10:27 [facility] (Rec: 06/14/18 10:33 [facility] [email or web address]) Physical Therapy Current Condition Current Condition Evaluation Date 04/26/18 Treatment Diagnosis s/p exploratory laporotomy, weakness Precautions Abdominal Surgery Precautions Log Roll Lifting Restrictions Gait Belt above Incisional Area Weight Bearing Status Weight Bearing Status Full Weight Bearing M3 PT-IP Subjective Start: 06/14/18 10:27 Freq: NEEDED Status: Active Protocol: Document 06/29/18 15:25 [facility] (Rec: 06/29/18 15:34 [facility] [email or web address]) Subjective Physical Therapy Visit Type Type Treatment Note Visit Start Time 15:00 Visit Stop Time 15:25 Total Visit Minutes 25 Number of GENERAL MERCHANDISE SALESPERSON Visits 2 Physical Therapy Visit Comments Patient Comments Pt willing to get up. Therapy Pain Assessment Pain When Pain Assessed During Mobility Pain Present Pain Present Pain Reported Location Bilateral Lower Abdomen Intensity 5 Scale Used Numeric (1 - 10) Pain Management Techniques Apply Heat Modification of Treatment Timing of Activity with Medications M4 PT-IP Mobility and Gait Start: 06/14/18 10:27 Freq: NEEDED Status: Active Protocol: Document 06/29/18 15:25 [facility] (Rec: 06/29/18 15:34 [facility] [email or web address]) PT-Bed Mobility Assessment Rolling Type of Rolling Roll to Right Level of Assist Standby Assistance Supine to Sit Supine to Sit Standby Assistance Sit to Supine Sit to Supine Standby Assistance Scooting Scooting to Edge of Bed Standby Assistance PT-Transfer Assessment Sit to and From Stand Sit to and from Stand Standby Assistance Equipment Transfer Assistive Device Gait Belt Front Wheeled Walker Orthotic/Prosthetic Devices or Brace: No Transfers Transfer Destination Bed Toilet Transfer Technique Stand Step Pivot Transfer Ability Level of Assist Standby Assistance Gait Assessment Gait Gait Assistance Required: Contact Guard Assist 1 Person Assist Distance (Feet) 500 Able to Maintain Weight Bearing Status Yes During Gait Assistive Devices Assistive Device None Gait Belt Orthotic/Prosthetic Devices or Brace: No Gait Deviations General Gait Pattern Within Normal Limits M5 PT-IP Objective Assessments Start: 06/14/18 10:27 Freq: NEEDED Status: Active Protocol: Document 06/14/18 10:27 [facility] (Rec: 06/14/18 10:33 [facility] [email or web address]) Orientation Orientation/Cognition Level of Alertness Lethargic Strength Lower Extremity Strength Assessment Bilaterally Impaired M6 PT-IP Treatment Start: 06/14/18 10:27 Freq: NEEDED Status: Active Protocol: Document 06/28/18 15:42 SA (Rec: 06/28/18 15:56 SA [id number]) Physical Therapy Treatment Exercises Exercises Ankle Pumps Heel Slides Education Education Provided Safety M7 PT-IP Assessment and Plan Start: 06/14/18 10:27 Freq: NEEDED Status: Active Protocol: Document 06/29/18 15:25 [facility] (Rec: 06/29/18 15:34 [facility] [email or web address]) PT Summary Assessment and Plan Summary Assessment Summary Pt improving with mobility. She was able to ambulate without assisitive device without LOB. She did have mild unsteadiness with gait with head turns, but no LOB. She had a face gait pace, but good step length and clearance. Pt safe for home D/C when medically stable. Frequency of Treatment Frequency Of Treatment Twice a Day Treatment Plan Physical Therapy Treatment Plan Gait Training Therapeutic Exercise Post Op Education Discharge Planning Hot or Cold Pack Recommendations To Nursing Amount of Assist Needed 1 Person Assist
[2018-06-29] MEDS: ENOXAPARIN 40 MG/0.4 ML SYRINGE SUBCUT (16:24)
[2018-06-29] MEDS: CALCIUM IV (18:26)
[2018-06-29] MEDS: FAT EMULSIONS 50 GM/250 ML EMULSION IV (18:26)
[2018-06-29] MEDS: LYTES IV (18:26)
[2018-06-29] MEDS: DEXT IV (18:26)
[2018-06-29] MEDS: [UNRECOGNIZED DRUG - OTHER] IV (18:26)
[2018-06-29] MEDS: SODIUM CHLORIDE 0.9% IV (18:26)
--- NOTE | 2018-06-29 19:57 | P.PN_ITS ---
Subjective Date Patient Seen: 06/29/18 Time Patient Seen: 19:29 Interval history: Patient had a quiet day. Having some cramping abdominal pain. It is increased a bit from yesterday. Is having some bouts of anxiety and wondered if he she could have something for that. Exam Vital Signs (past 8 hours): - 06/29/18 15:00 06/29/18 15:54 Temperature 97.6 F Pulse Rate 93 H Respiratory Rate 20 Blood Pressure 106/63 Pulse Oximetry 98 98 Oxygen Delivery Method Nasal Cannula Oxygen Flow Rate 0 Narrative Exam Narrative: Lungs are clear to auscultation no rales or rhonchi. Heart regular rate and rhythm without murmur gallop. Abdomen is protuberant soft nontender without masses. Dressing is intact in the midline and I left it for now . explained to him that we would be happy to transfer if we had an accepting physician. If they have the names of some unspecific we would call them. Otherwise we would call whoever is tobacco prevention health educator. I explained that without an accepting physician we really can't transfer her. I also explained that depending on her insurance is some are accepted at some hospitals and not others. I was left with the impression that they did not have anybody specific at this time but did have a list of names at home. It also sounded like they wanted to wait until doctor Cam was available as I had not actually participated in her operations. We will plan to start the patient on a low dose starting dose of an antidepressant such as citalopram. Objective Labs Result Diagrams: 06/29/18 06:47 06/29/18 06:47 Labs: Laboratory Results - last 24 hr 06/29/18 06/29/18 06:47 06:47 WBC 7.6 RBC 3.67 L Hgb 10.1 L Hct 30.6 L MCV 83.5 MCH 27.6 MCHC 33.1 RDW 15.7 H Plt Count 643 H Neut % (Auto) Not Reportable Lymph % (Auto) Not Reportable Gregg % (Auto) Not Reportable Eos % (Auto) Not Reportable Baso % (Auto) Not Reportable Lymph # (Auto) Not Reportable Gregg # (Auto) Not Reportable Baso # (Auto) Not Reportable Total Counted 100 Seg Neutrophils % 52.0 Band Neutrophils % 2.0 L Lymphocytes % (Manual) 25.0 Atypical Lymphs % 9.0 H Monocytes % (Manual) 9.0 Eosinophils % (Manual) 3.0 Neutrophils # (Manual) 4104 Platelet Estimate Increased on smear RBC Morphology Not Reportable Sodium 138 Potassium 4.7 Chloride 103 Carbon Dioxide 26 BUN 14 Creatinine 0.70 Estimated GFR > 60.0 BUN/Creatinine Ratio 20.0 Glucose 115 H Calcium 8.6 Assessment & Plan Post-op Postoperative Procedures Operation Date: 06/13/18 13:15 Actual Procedures Side Surgeon p Exploratory Laparotomy, LYSIS OF ADHESIONS, Placement of gastrostomy tube Not Applicable Tate Levy MD Postoperative plan narrative: Continue TPN. Will change dressing tomorrow. Started her on citalopram for depression and as needed and Ativan for anxiety. Will check labs tomorrow. Glucose is pretty well controlled now.
[2018-06-30] VITALS (9 sets, daily range): BP systolic 88–115; BP diastolic 53–61; PULSE 84–100; RESP 16–20; TEMP 36.3–36.8; O2SAT 96–98
[2018-06-30] MEDS: VANCOMYCIN 1,000 MG/200 ML FROZ.PIGGY 200 MG IV ×2 (00:16→08:44)
[2018-06-30] MEDS: HYDROMORPHONE 2 MG TABLET 4 MG PO ×3 (02:07→09:28)
[2018-06-30] MEDS: CLINDAMYCIN 600 MG/50 ML PIGGYBACK 50 MG IV ×3 (03:01→18:54)
[2018-06-30] MEDS: PANTOPRAZOLE 40 MG PACKET PO (06:41)
--- NOTE | 2018-06-30 07:53 | PC.NURSE ---
Pt awake alert, 98%RA, LS: dim, BTX4 hypoactive, not passing gas. pain controlled 4mg PO dilaudid. TPN infusing at 64 ml/hr in a 1800 ML bag. no adverse effects noted. notified, VTO to continue TPN at same rate and infuse 1bag D5 1/2 NS @100mls/hr. call light in reach. bed alarm active.
[2018-06-30] MEDS: CITALOPRAM 20 MG TABLET PO (09:29)
[2018-06-30] MEDS: DEXTROSE 5%-0.45% NS 1,000 ML 100 ML IV (09:58)
--- NOTE | 2018-06-30 11:05 | PT.IPTN ---
Current Diagnoses Intestinal adhesions [bands], unspecified as to partial versus complete obstruction (06/08/18) Surgery Performed Operation Date: 06/13/18 13:15 Actual Procedures p Exploratory Laparotomy, LYSIS OF ADHESIONS, Placement of gastrostomy tube(Not Applicable) - Tate Levy MD Physical Therapy Treatment Note M2 PT-IP Current Condition Start: 06/14/18 10:27 Freq: NEEDED Status: Active Protocol: Document 06/14/18 10:27 [facility] (Rec: 06/14/18 10:33 [facility] [id number]) Physical Therapy Current Condition Current Condition Evaluation Date 04/26/18 Treatment Diagnosis s/p exploratory laporotomy, weakness Precautions Abdominal Surgery Precautions Log Roll Lifting Restrictions Gait Belt above Incisional Area Weight Bearing Status Weight Bearing Status Full Weight Bearing M3 PT-IP Subjective Start: 06/14/18 10:27 Freq: NEEDED Status: Active Protocol: Document 06/30/18 11:05 [facility] (Rec: 06/30/18 12:35 [facility] [email or web address]) Subjective Physical Therapy Visit Type Type Treatment Note Visit Start Time 10:55 Visit Stop Time 11:05 Total Visit Minutes 10 Number of UNDERCOATER Visits 3 Physical Therapy Visit Comments Patient Comments Pt states she having more pain . Therapy Pain Assessment Pain When Pain Assessed During Mobility Pain Present Pain Present Pain Reported Location Bilateral Lower Abdomen Intensity 8 Scale Used Numeric (1 - 10) M4 PT-IP Mobility and Gait Start: 06/14/18 10:27 Freq: NEEDED Status: Active Protocol: Document 06/30/18 11:05 [facility] (Rec: 06/30/18 12:35 [facility] [email or web address]) PT-Bed Mobility Assessment Rolling Type of Rolling Roll to Right Level of Assist Independent Supine to Sit Supine to Sit Independent Bedrails Sit to Supine Sit to Supine Independent Bedrails Scooting Scooting to Edge of Bed Independent PT-Transfer Assessment Sit to and From Stand Sit to and from Stand Standby Assistance Equipment Transfer Assistive Device None Gait Belt Orthotic/Prosthetic Devices or Brace: No Transfers Transfer Destination Bed Transfer Ability Level of Assist Standby Assistance Gait Assessment Gait Gait Assistance Required: Standby Assistance Distance (Feet) 500 Able to Maintain Weight Bearing Status Yes During Gait Assistive Devices Assistive Device None Gait Belt Orthotic/Prosthetic Devices or Brace: No Gait Deviations General Gait Pattern Within Normal Limits Comments Gait Comments Pt needed assist with IV pole. M5 PT-IP Objective Assessments Start: 06/14/18 10:27 Freq: NEEDED Status: Active Protocol: Document 06/14/18 10:27 [facility] (Rec: 06/14/18 10:33 [facility] [email or web address]) Orientation Orientation/Cognition Level of Alertness Lethargic Strength Lower Extremity Strength Assessment Bilaterally Impaired M6 PT-IP Treatment Start: 06/14/18 10:27 Freq: NEEDED Status: Active Protocol: Document 06/28/18 15:42 [facility] (Rec: 06/28/18 15:56 [facility] [id number]) Physical Therapy Treatment Exercises Exercises Ankle Pumps Heel Slides Education Education Provided Safety M7 PT-IP Assessment and Plan Start: 06/14/18 10:27 Freq: NEEDED Status: Active Protocol: Document 06/30/18 11:05 [facility] (Rec: 06/30/18 12:35 [facility] [email or web address]) PT Summary Assessment and Plan Summary Assessment Summary Pt improved with mobility. She need no LOB with gait. She was able to manage soto way obstacle without LOB. She was safe with turns and head movements. Pt safe for independent ambulation in halls. Frequency of Treatment Frequency Of Treatment Discharge Recommendations To Nursing Amount of Assist Needed Independent Discharge Recommendations PT Discharge Recommendations Home with Assistance Equipment Needed for Home Before no need for FWW. Discharge
--- NOTE | 2018-06-30 11:24 | PC.NURSE ---
Addendum entered by Jenny Bay R.N. 06/30/18 13:54: PAIN/INTEG - in, mid abd incision dsg removed, wound bed pink granulation, replaced temporary wet to dry guaze with abd pad over as pt would like to shower later today when friend brings in hair supplies. Pain was not relieved by the po dilaudid, pt tearful and anxious, given 1mg iv ativan, new orders rec'd and given 1mg iv dilaudid dose and then set up with dilaudid brass pourer 0.3/10/6mg, pt reported much improved relief from abd pain and cramping. Original Note: AM NOTE - drowsy but awakens easily, abd discomfort 6 on scale 0/10, does get tearful at times when discussing discomfort, fistula drain low suction w/dark brown fluid in tubing, gastrostomy tube with opaque green/thomas fluid in tubing and bag, given po dilaudid this am for discomfort and tube clamped, released after 60 minutes, pt did ambul with phys therapy standby and ret to bed, declines up chair at this time, discussed shower later today and dsg change, pt waiting for friendd to bring in hair supplies, discussed tpn with José Migueltiago coordinator and per order last night, at 10am, tpn removed and changed to d5 1/2NS at 100ml/hr. No nausea, grace few ice chips.
[2018-06-30] MEDS: LORazepam 2 MG/ML SYRINGE 1 MG IV ×2 (12:04→19:15)
[2018-06-30] MEDS: levoFLOXacin 750 MG/150 ML PIGGYBACK 100 MG IV (12:09)
[2018-06-30] MEDS: HYDROMORPHONE 0.5 MG INJ 1 MG IV (13:08)
[2018-06-30] MEDS: HYDROMORPHONE PCA 6 MG/30 ML PCA.VIAL IV ×3 (13:23→22:04)
--- NOTE | 2018-06-30 15:43 | PM.PNPO.1 ---
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 She is upset and depressed. Pain medicine is not helping. She would like IV Dilaudid. It worked before. She is complaining of crampy abdominal pain. Exam Vital Signs (past 8 hours): - 06/30/18 07:49 06/30/18 11:00 Temperature 98.1 F Pulse Rate 91 H Respiratory Rate 16 Blood Pressure 98/55 L Pulse Oximetry 98 98 Oxygen Delivery Method Room Air Oxygen Flow Rate 0 Narrative Exam Narrative: Operative no apparent distress. Lungs are clear. Affect is flat. Heart regular rate and rhythm without murmur gallop. Abdomen is protuberant soft. One of the stitches holding in the drain that was rate and has come free which is made the drain a little bit mobile. However it still fits into the site well. The remainder of the wound is contains bright red beefy healthy granulation tissue. Skin edges look fine. Drainage is down to 50 cc for the prior 24 hr and none thus far today. Objective Labs Result Diagrams: 06/29/18 06:47 06/29/18 06:47 Assessment & Plan Post-op Postoperative Procedures Operation Date: 06/13/18 13:15 Actual Procedures Side Surgeon p Exploratory Laparotomy, LYSIS OF ADHESIONS, Placement of gastrostomy tube Not Applicable Tate Levy MD Postoperative status narrative: Very depressed and anxious. I believe her fistula may be closing. That may be the reason for crampy abdominal pain as well. We will get a subtle labs tomorrow. Continue her TPN today. Seems to be tolerating it well. Postoperative plan narrative: See above
[2018-06-30] MEDS: VANCOMYCIN TROUGH 1 REQUEST MISC (16:41)
[2018-06-30] MEDS: ENOXAPARIN 40 MG/0.4 ML SYRINGE SUBCUT (16:45)
[2018-06-30 17:23] LABS: Vancomycin Trough 25.4 ug/mL (10-20)
[2018-06-30] MEDS: DEXT IV (17:56)
[2018-06-30] MEDS: CALCIUM IV (17:56)
[2018-06-30] MEDS: LYTES IV (17:56)
[2018-06-30] MEDS: [UNRECOGNIZED DRUG - OTHER] IV (17:56)
[2018-06-30] MEDS: SODIUM CHLORIDE 0.9% IV (17:56)
[2018-06-30] MEDS: FAT EMULSIONS 50 GM/250 ML EMULSION IV (17:59)
[2018-06-30] MEDS: ONDANSETRON 4 MG/2 ML INJ IV (21:21)
[2018-07-01] VITALS (11 sets, daily range): BP systolic 102–121; BP diastolic 50–69; PULSE 87–95; RESP 16–20; TEMP 36.4–37.1; O2SAT 94–98
--- NOTE | 2018-07-01 | DI.CT.S_ITS ---
PROCEDURE: CT ABDOMEN W CON INDICATIONS: rising bands r/o abscess. Pt has an enterocutanous fistula TECHNIQUE: After the administration of oral and intravenous contrast, 5 mm thick sections acquired from the diaphragms to the iliac crests. 5 mm thick coronal and sagittal reformats were acquired. For radiation dose reduction, the following was used: automated exposure control, adjustment of mA and/or kV according to patient size. COMPARISON: [facility], CT, CT ABDOMEN PELVIS W CON, 05/26/2018, 23:29. FINDINGS: Image quality: Excellent. Lung bases: Lung bases are clear. Heart size is normal. Solid organs: Liver is normal in size and enhancement. Hepatic steatosis is seen, no discrete hepatic lesion. Gallbladder is within normal limits.. Biliary system is non dilated. Pancreas enhances normally. Spleen is normal in size and enhancement. Stable 1 cm cyst in inferior portion of spleen is unchanged. No adrenal nodules. Kidneys are normal in size, without hydronephrosis. Peritoneum and bowel: PEG tube tip is within the gastric lumen. Interval postsurgical changes in midline of abdomen is seen with midline incisional wound containing a surgical drain. Inflammatory changes surrounding the surgical site is seen. No drainable fluid collection is seen. There is mild wall thickening involving bowel loops deep to the surgical site, likely represent reactive inflammatory changes. Multiple fluid distended small bowel loops are noted with decompressed terminal ileum and colon loops. Finding could represent distal small bowel obstruction with zone of transition likely involving distal ileal loop although exact zone of transition is not definitively identified. There is no peritoneal free fluid or free air. Nodes and vessels: No retroperitoneal or mesenteric adenopathy by size criteria. Aorta and inferior vena cava are normal in size. Bones: No suspicious bony lesions. No vertebral body compression fractures. Miscellaneous: No ventral hernias. IMPRESSION: 1. Postsurgical changes in the abdomen with open incision wound containing a surgical drain and surrounding intra-abdominal inflammatory changes. No drainable abscess collection is seen. 2. There is no peritoneal free fluid or free air. Multiple fluid distended small bowel loops throughout abdomen with decompressed distal ileum and the colon loops suspicious for small bowel obstruction, exact transition point is not definitively identified. 3. Mild wall thickening of small bowel loops adjacent to surgical site, likely represent reactive inflammatory changes. PEG tube is in the stomach lumen. No peritoneal abscess collection is seen. Dictated by: Luciano Barahona M.D. on 07/01/2018 at 15:20 Approved by: Luciano Barahona M.D. on 07/01/2018 at 15:36
[2018-07-01 01:06] LABS: Vancomycin Trough 18.9 ug/mL (10-20)
[2018-07-01] MEDS: VANCOMYCIN TROUGH 1 REQUEST MISC (01:13)
[2018-07-01] MEDS: CLINDAMYCIN 600 MG/50 ML PIGGYBACK 50 MG IV ×3 (02:28→20:40)
[2018-07-01] MEDS: VANCOMYCIN 750 MG in SODIUM CHLORIDE 0.9% 250 ML 167 ML IV (03:39)
[2018-07-01] MEDS: PANTOPRAZOLE 40 MG PACKET PO (06:16)
[2018-07-01] MEDS: HYDROMORPHONE PCA 6 MG/30 ML PCA.VIAL IV ×3 (06:17→20:42)
--- NOTE | 2018-07-01 06:23 | PC.NURSE ---
Gastrostomy: 150cc out. Fistula: 0cc out. Fistula tubing had some fluid in it but not enough to drain in canister. Pain managed with dilaudid HUMAN RESOURCE CONSULTANT. pt used 2.3mg of HUMAN RESOURCE CONSULTANT. At this time gastrostomy clamped, pt recently took protonix PO. call light in reach. bed alarm active.
[2018-07-01 06:26] LABS: Hematocrit 26.4 % (36-46); Hemoglobin 8.9 g/dL (12.0-16.0); Mean Corpuscular HGB Conc 33.6 % (30-36); Mean Corpuscular Hemoglobin 27.7 PG (26-34); Mean Corpuscular Volume 82.4 fL (80-100); Platelet Count 496 X10^3/uL (150-400); Red Cell Distribution Width 16.2 % (11.6-14.8); White Blood Cell Count 6.8 X10^3/uL (4.5-11.0)
[2018-07-01 06:33] LABS: Alanine Aminotransferase 18 IU/L (9-52); Albumin 2.8 g/dL (3.5-5.0); Albumin Globulin Ratio 0.8 (1.0-2.8); Alkaline Phosphatase 72 U/L (38-126); Aspartate Aminotransferase 20 IU/L (14-36); BUN Creatinine Ratio 19.1 (6-22); Bilirubin Total 0.1 mg/dL (0.2-1.3); Blood Urea Nitrogen 21 mg/dL (7-17); Calcium 8.6 mg/dL (8.4-10.2); Carbon Dioxide 25 mmol/L (22-32); Chloride 105 mmol/L (98-107); Estimated Glomerular Filt Rate 52.4 mL/min (>60); Globulin 3.5 g/dL (1.7-4.1); Glucose 104 mg/dL (70-100); HEMOLYSIS < 15 (0-50); Potassium 4.6 mmol/L (3.4-5.1); Sodium 136 mmol/L (137-145); Total Protein 6.3 g/dL (6.3-8.2)
[2018-07-01 06:53] LABS: Add Manual Diff / Slide Review YES
[2018-07-01 07:09] LABS: Neutrophils Absolute Manual 4284 /uL (3000-5900); Nucleated Red Blood Cells 1 #/Diff; Total Cells Counted 100
[2018-07-01 07:10] LABS: Anisocytosis 1+
--- NOTE | 2018-07-01 10:02 | PC.NURSE ---
Addendum entered by Jenny Bay R.N. 07/01/18 14:11: GI - prior to conversation w/radiology, pt given 4mg iv zofran, then contrast with blue dye was slowly injected into the gastrostomy port, pt was able to grace 350ml before feeling bloated. Clamped and xr will return in approx [address], pt resting comfortably. Original Note: Addendum entered by Jenny Bay R.N. 07/01/18 13:13: GI/INTEG/PAIN - prior to dsg removal and procedure, pt given 1mg iv ativan for anxiety, dsg and packing removed, wound bed with pink granulation, removed the fistual drain, cleaned the end that was blocked with exudate, replaced and added addl suture, wet to dry guaze replaced, and suction at 25 with some serosang, then thomas fluid in tubing, wound cultures x2 labelled and sent to micro, verified both anarobic and aerobic cultures are to be done with micro. Original Note: AM NOTE - when awakened later am, standby assist to bsc w/void, discussed red spot on r buttock at crease and advised pt side to side q2 and also brought in waffle cushion to try, discussed dsg change and shower and would like to do so after lunch, the tpn was tapered per order and dc'd at 1000.
[2018-07-01] MEDS: LORazepam 2 MG/ML SYRINGE 1 MG IV ×2 (11:25→19:23)
[2018-07-01] MEDS: VANCOMYCIN 750 MG/150 ML FROZ.PIGGY 150 MG IV ×2 (11:32→19:13)
[2018-07-01] MEDS: CITALOPRAM 20 MG TABLET PO (11:37)
[2018-07-01] MEDS: levoFLOXacin 750 MG/150 ML PIGGYBACK 100 MG IV (12:56)
--- NOTE | 2018-07-01 13:02 | P.PN_ITS ---
Subjective Date Patient Seen: 07/01/18 Time Patient Seen: 12:00 Interval history: Patient feeling better today. Pain is better controlled. She did not get her shower as planned yesterday. Her sisters coming in today to his sister. Drainage is markedly decreased. Exam Vital Signs (past 8 hours): - 07/01/18 07:40 07/01/18 09:44 07/01/18 10:05 Temperature 97.9 F Pulse Rate 89 Respiratory Rate 16 Blood Pressure 102/60 Pulse Oximetry 96 98 95 Oxygen Delivery Method Room Air Oxygen Flow Rate 1 Narrative Exam Narrative: Her wound is beefy red. There is purulent drainage on the dressing that does not have the appearance of succus. The drain has stopped working. I pulled it out of the hole and found that it was clotted with thick mucoid material. I irrigated out the main channel on the side channels. Replaced and it was functioning well. Her lungs are clear to auscultation without rales or rhonchi. Heart regular rate and rhythm without murmur gallop. Objective Labs Result Diagrams: 07/01/18 06:05 07/01/18 06:05 Labs: Laboratory Results - last 24 hr 06/30/18 07/01/18 07/01/18 16:40 00:35 06:05 WBC 6.8 RBC 3.20 L Hgb 8.9 L Hct 26.4 L MCV 82.4 MCH 27.7 MCHC 33.6 RDW 16.2 H Plt Count 496 H Neut % (Auto) Twine Reeling Machine Operator Lymph % (Auto) Twine Reeling Machine Operator [place] % (Auto) Twine Reeling Machine Operator Eos % (Auto) Twine Reeling Machine Operator Baso % (Auto) Twine Reeling Machine Operator Neut # (Auto) Twine Reeling Machine Operator Lymph # (Auto) Twine Reeling Machine Operator [place] # (Auto) Twine Reeling Machine Operator Eos # (Auto) Twine Reeling Machine Operator Baso # (Auto) Twine Reeling Machine Operator Total Counted 100 Seg Neutrophils % 37.0 L Band Neutrophils % 26.0 H Lymphocytes % (Manual) 16.0 L Monocytes % (Manual) 12.0 H Eosinophils % (Manual) 8.0 H Metamyelocytes % 1.0 H Neutrophils # (Manual) 4284 Nucleated RBCs 1 H RBC Morphology Not Reportable Anisocytosis 1+ H Sodium Potassium Chloride Carbon Dioxide BUN Creatinine Estimated GFR BUN/Creatinine Ratio Glucose Calcium Total Bilirubin AST ALT Alkaline Phosphatase Total Protein Albumin Globulin Albumin/Globulin Ratio Vancomycin Trough 25.4 H* 18.9 07/01/18 06:05 WBC RBC Hgb Hct MCV MCH MCHC RDW Plt Count Neut % (Auto) Lymph % (Auto) [place] % (Auto) Eos % (Auto) Baso % (Auto) Neut # (Auto) Lymph # (Auto) [place] # (Auto) Eos # (Auto) Baso # (Auto) Total Counted Seg Neutrophils % Band Neutrophils % Lymphocytes % (Manual) Monocytes % (Manual) Eosinophils % (Manual) Metamyelocytes % Neutrophils # (Manual) Nucleated RBCs RBC Morphology Anisocytosis Sodium 136 L Potassium 4.6 Chloride 105 Carbon Dioxide 25 BUN 21 H Creatinine 1.10 H Estimated GFR 52.4 L BUN/Creatinine Ratio 19.1 Glucose 104 H Calcium 8.6 Total Bilirubin 0.1 L AST 20 ALT 18 Alkaline Phosphatase 72 Total Protein 6.3 Albumin 2.8 L Globulin 3.5 Albumin/Globulin Ratio 0.8 L Vancomycin Trough Assessment & Plan Post-op Postoperative Procedures Operation Date: 06/13/18 13:15 Actual Procedures Side Surgeon p Exploratory Laparotomy, LYSIS OF ADHESIONS, Placement of gastrostomy tube Not Applicable Tate Levy MD Postoperative status narrative: I have been concerned about her white count. She has 26 bands and 2 days ago only had 2. The drainage now looks more like pus than succus. I am concerned that she has an intra-abdominal abscess that is now draining through her midline. The fistula may well be closed. She has not however having any distal bowel function yet. Postoperative plan narrative: I have ordered a CT scan with intestinal and IV contrast. I have asked them to placed methylene blue into the contrast given via her gastrostomy tube. That way we we should be able to tell if her fistula has closed. We will also be able to determine if there is an abdominal abscess that needs to be evaluated and drained. Overall she is looking much better today than she has except for this white count. In fact that is the only indication that something untoward may be going on since her will total white blood cell count is normal, she has never been febrile and is not tachycardic. I have continued the antibiotics Dr. Levy ordered. Because of the prolonged clamping of her gastrostomy tube for medication I have switched her back mostly to IV medications so that the tube can drain nearly continuously until we assess the abdominal process.
[2018-07-01] MEDS: ONDANSETRON 4 MG/2 ML INJ IV (13:27)
[2018-07-01] MEDS: SODIUM CHLORIDE 0.9% IV (17:47)
[2018-07-01] MEDS: CALCIUM IV (17:47)
[2018-07-01] MEDS: LYTES IV (17:47)
[2018-07-01] MEDS: DEXT IV (17:47)
[2018-07-01] MEDS: [UNRECOGNIZED DRUG - OTHER] IV (17:47)
[2018-07-01] MEDS: FAT EMULSIONS 50 GM/250 ML EMULSION IV (17:48)
[2018-07-01] MEDS: ENOXAPARIN 40 MG/0.4 ML SYRINGE SUBCUT (17:48)
--- NOTE | 2018-07-01 21:49 | PC.NURSE ---
Shift note: Carol reports tired tonight, requesting blocks of time to sleep. Reported nausea intermittent throughout shift, medicated with IV Ativan as too early to administer IV Zofran. Pt reported Ativan helped a lot, does still report vague nausea but not as bad as it was before. VS stable, afebrile. HR 90's, regular rhythm. Lungs clear. RA oxygen mid 90's. 2 abdomen drsgs are CDI, one at left with drain tube to gravity, collection bag with 300 ml total bright raspberry blue output (from CT contrast dye.) Drain to right abd fistula site set to wall suction at 25 mm/hg, no measurable drainage in last 8 hours. Old drainage in cannister is thomas/brown in color. Patient refused drsg change now, requesting drsg change correlate with next time Ativan is due, saying I just get so anxious - I need something before that happens. Last drsg change done around 1300. TPN/lipids hung at 1800, infusing to PICC port with no difficulty, TPN rate titrated from 101 ml/hour to 203 ml/hour per parameters, lipid rate remains at 25 ml/hour. 2nd PICC port infusing antibiotic x 2 per schedule. PICC drsg remains CDI. Voided x 1 via BSC. Carol has had a few visitors earlier this evening, she remains Ox3 and using call button appropriately. Fall precautions in place, bed alarm active for safety.
[2018-07-02] VITALS (10 sets, daily range): BP systolic 92–135; BP diastolic 54–73; PULSE 82–88; RESP 16–18; TEMP 36.3–37.1; O2SAT 95–98
[2018-07-02] MEDS: LORazepam 2 MG/ML SYRINGE 1 MG IV ×3 (01:52→20:35)
[2018-07-02] MEDS: VANCOMYCIN TROUGH 1 REQUEST MISC (02:30)
[2018-07-02] MEDS: VANCOMYCIN 750 MG/150 ML FROZ.PIGGY 150 MG IV (02:37)
[2018-07-02 03:17] LABS: Vancomycin Trough 21.7 ug/mL (10-20)
[2018-07-02] MEDS: CLINDAMYCIN 600 MG/50 ML PIGGYBACK 50 MG IV ×3 (03:41→20:38)
--- NOTE | 2018-07-02 04:13 | PC.NURSE ---
Advised Mariana at [facility] that pt's Vanco trough came back at 21.7. She will pass it on to pharmacy at 0700.
--- NOTE | 2018-07-02 05:09 | PC.NURSE ---
Pt is A and O x 4, VSS. Tolerating TPN and lipids well. AUTOMOBILE BODY REPAIRER is effective at handling pt's pain. She used approx 2.1 mg this shift. Abdominal dressing changed, small amount of serous fluid from the vertical dehisced incision, ostomy site clean and dry. Output from suction drain approx 50 mLs, 300 mLs from gravity drain, both thin green liquid. Vanco trough came back at 21.7 advised [facility]. CBG at 0000 = 101. Pt able to sleep.
[2018-07-02] MEDS: HYDROMORPHONE PCA 6 MG/30 ML PCA.VIAL IV ×3 (05:56→23:48)
[2018-07-02 06:09] LABS: Hematocrit 25.7 % (36-46); Hemoglobin 8.8 g/dL (12.0-16.0); Mean Corpuscular HGB Conc 34.1 % (30-36); Mean Corpuscular Hemoglobin 27.9 PG (26-34); Mean Corpuscular Volume 81.9 fL (80-100); Platelet Count 431 X10^3/uL (150-400); Red Blood Cell Count 3.14 X10^6/uL (4.0-5.2); Red Cell Distribution Width 16.4 % (11.6-14.8); White Blood Cell Count 6.2 X10^3/uL (4.5-11.0)
[2018-07-02 06:45] LABS: Neutrophils Absolute Manual 3720 /uL (3000-5900); Total Cells Counted 100
[2018-07-02 06:47] LABS: Anisocytosis 1+; Platelet Estimate Increased on smear
--- NOTE | 2018-07-02 07:53 | PC.NURSE ---
0730 Urine noted to be blue/green tinted this AM. Notified Destini PACHECO
[2018-07-02] MEDS: ONDANSETRON 4 MG/2 ML INJ IV ×2 (08:41→23:40)
[2018-07-02] MEDS: CITALOPRAM 20 MG TABLET PO (09:42)
--- NOTE | 2018-07-02 11:05 | P.PN_ITS ---
Subjective Date Patient Seen: 07/02/18 Time Patient Seen: 10:55 Interval history: Patient complaining of some intermittent nausea but no vomiting. She states she did pass a small amount of flatus over the last 1-2 days but no bowel movement per rectum. No fever or chills. No further rigors since the isolated episode last week. Not particularly hungry but continues to tolerate intermittent small volumes of water. Pain was an issue over the weekend she has been restarted on her Dilaudid HELICOPTER DISPATCHER. Exam Vital Signs (past 8 hours): - 07/02/18 03:14 07/02/18 08:00 07/02/18 08:45 Temperature 97.4 F L 98.2 F Pulse Rate 86 82 Respiratory Rate 18 18 Blood Pressure 116/61 117/67 Pulse Oximetry 96 97 98 07/02/18 10:08 Temperature Pulse Rate Respiratory Rate Blood Pressure 113/60 Pulse Oximetry Oxygen Delivery Method Room Air Oxygen Flow Rate 0 Narrative Exam Narrative: Obese female lying in bed in no acute distress. She is somewhat somnolent as she recently received Ativan for anxiety and mild nausea. Otherwise easily arousable and alert. Oriented x3. Her sister and other family is at the bedside during my visit today. However, her significant other Jarrell is not here yet at this time. He apparently had some questions several days ago during my absence. Sclera nonicteric No crackles or wheezes. Regular rate and rhythm Patient has been afebrile for many days now. No tachycardia. Blood pressure is normal. Her lisinopril has actually been held over the last several days, but pressure remains well controlled otherwise. She has adequate urine output. Gastrostomy tube output has been relatively minimal but appears more bilious today. Per report there was some blue dye in the gastrostomy tube output as well as on the wound dressing yesterday. This would be consistent with the methylene blue placed in the oral contrast she received for CT scan yesterday under the direction of Dr. Chris. Fistula the catheter output has also been relatively minimal. In fact, output has been 100 cc or less. The fluid in the suction canister is consistent with succus however. Abdomen is soft and nondistended. She is appropriately tender. Gastrostomy tube site is clean and intact without erythema. I personally changed her dressing today. There was no blue dye present on the dressing currently, which was applied at approximately 2:00 a.m. this morning. Fistula catheter remains in good position. Surrounding skin is intact without erythema or excoriation. The wound itself is actually closing nicely with a minimal amount of seropurulent discharge but otherwise excellent granulation tissue throughout. Extremities show no clubbing, cyanosis, or edema Objective Labs Result Diagrams: 07/02/18 05:45 07/01/18 06:05 Labs: Laboratory Results - last 24 hr 07/02/18 07/02/18 02:15 05:45 WBC 6.2 RBC 3.14 L Hgb 8.8 L Hct 25.7 L MCV 81.9 MCH 27.9 MCHC 34.1 RDW 16.4 H Plt Count 431 H Total Counted 100 Seg Neutrophils % 58.0 D Band Neutrophils % 2.0 L Lymphocytes % (Manual) 31.0 Atypical Lymphs % 2.0 H Monocytes % (Manual) 3.0 Eosinophils % (Manual) 3.0 Myelocytes % 1.0 H Neutrophils # (Manual) 3720 Platelet Estimate Increased on smear RBC Morphology See below Anisocytosis 1+ H Vancomycin Trough 21.7 H* I personally reviewed her CT scan of the abdomen done yesterday. She has no evidence of intra-abdominal abscess, free fluid, or free air. Small bowel loops remain mildly dilated with some air-fluid levels but certainly not as significant when she 1st presented for readmission several weeks ago. Bowel loops are otherwise mildly inflamed as anticipated but clearly viable. Most of the colon is decompressed but there is a small amount of air in the right colon. Of note, her bandemia has completely resolved. Small possibility that this was a spurious level yesterday. Assessment & Plan Plan: Assessment/Plan Narrative: 53-year-old female with enterocutaneous fistula after 2nd exploratory laparotomy with extensive lysis of adhesions. She overall is stable. She has no evidence of significant infectious complications at this time. The fistula appears to remain patent but output is far less than 500 cc for 24 hr. Gastrostomy tube is functioning well. We will continue to limit her oral intake as per current parameters. Continue Levaquin, vancomycin, and clindamycin as we await repeat cultures. There are gram-positive cocci on the Gram stain from the wound which have yet to be identified. Blood cultures last week were completely negative after 5 days. Continue current TPN formula and volume. Patient and her family had a number of questions for me today, and I spent at least 20 min in discussion with them answering all of their questions to their satisfaction. I discussed all of the recent operative findings as well as the findings at her initial operation in April 2018. I discussed the pathophysiology and natural history of enterocutaneous fistula. We discussed small-bowel obstruction in the possibility of recurrence. Currently she has no evidence of significant ongoing obstruction and I therefore would anticipate that she will hopefully continue to improve and avoid any further abdominal surgery in the future. We discussed the eventual removal of the gastrostomy tube in the office setting once she has completely healed and no longer requires it, but I explained that this will be many months from now. She also had questions regarding the maturation process of the fistula if it does not close spontaneously and associated wound care questions. Again, all questions were answered to her satisfaction. Patient and family voiced understanding. I inquired as to her significant other's questions that he might still have, but she was uncertain about his concerns at this time. We will make attempts to wean the HELICOPTER DISPATCHER over the next 1-2 days once again and convert her to oral analgesia since he will not be able to be discharged home on such. She voiced understanding. Orders were written.
[2018-07-02] MEDS: levoFLOXacin 750 MG/150 ML PIGGYBACK 100 MG IV (14:31)
--- NOTE | 2018-07-02 16:27 | PC.NURSE ---
Pt with uneventful shift, flat affect and makes needs known. Nausea present this am, pt reports from contact from CT 07/01. changed drsg to ABD this am w/ no new orders. Gastro/Fistula drains draining per orders, WCTM.
[2018-07-02] MEDS: [UNRECOGNIZED DRUG - OTHER] IV (18:21)
[2018-07-02] MEDS: LYTES IV (18:21)
[2018-07-02] MEDS: DEXT IV (18:21)
[2018-07-02] MEDS: CALCIUM IV (18:21)
[2018-07-02] MEDS: SODIUM CHLORIDE 0.9% IV (18:21)
[2018-07-02] MEDS: ENOXAPARIN 40 MG/0.4 ML SYRINGE SUBCUT (18:27)
[2018-07-02 18:49] LABS: Estimated Glomerular Filt Rate 58.5 mL/min (>60)
[2018-07-02 18:54] LABS: Vancomycin Random 17.3 ug/mL (10-40)
[2018-07-03] VITALS (11 sets, daily range): BP systolic 101–123; BP diastolic 54–77; PULSE 82–96; RESP 14–16; TEMP 36.4–36.9; O2SAT 95–99
[2018-07-03] MEDS: CLINDAMYCIN 600 MG/50 ML PIGGYBACK 50 MG IV ×3 (04:00→20:46)
[2018-07-03] MEDS: ONDANSETRON 4 MG/2 ML INJ IV (05:33)
[2018-07-03] MEDS: HYDROMORPHONE PCA 6 MG/30 ML PCA.VIAL IV (05:35)
--- NOTE | 2018-07-03 08:30 | PC.NURSE ---
Pt is A&ox3 this morning. into see patient and changed wet to dry dressing to open midline incision. Area is beefy red in color with just a small amount of bloody drainage. No odor present. He also clamped her gastrostomy tube shut for 4 hours, will be unclamed again at 1230. This is located on the left side of her incision. She also has a fistula to the r.mid side of incision, patient has a drain that is to suction and putting out a brownish colored drainage. Pts TPN ran at 202 till 0920 and then rate was changed to 101 for an hour and then turned off for 8 hours around 1020. Pt also transitioned to po pain medication again and so far has tolerated this well, she denies any nausea and is resting comfortably.
--- NOTE | 2018-07-03 08:58 | PM.PN.1 ---
Subjective Date Patient Seen: 07/03/18 Time Patient Seen: 08:59 Interval history: Patient denies any nausea or vomiting. Continues to pass a small amount of flatus intermittently only. No bowel function per rectum. Still somewhat hungry and wishes to drink but remains on her fluid restriction orally. Pain is controlled with ICT SECURITY SPECIALIST. No further fevers, chills, or rigors. Exam Vital Signs (past 8 hours): - 07/03/18 04:00 07/03/18 05:45 07/03/18 07:45 Temperature 98.2 F 98.4 F Pulse Rate 82 84 Respiratory Rate 16 14 Blood Pressure 104/66 104/54 L Pulse Oximetry 96 99 96 Oxygen Delivery Method Room Air Oxygen Flow Rate 0 Narrative Exam Narrative: Well-nourished well-developed moderately obese female lying in bed in no acute distress. She is easily arousable and alert oriented x3. She is overall somewhat depressed which is not unanticipated. No fevers. No tachycardia. Blood pressure is normal. Good urine output Fistula drainage is actually minimal. The best I can ascertain from the record as well as what is in the container currently is only about 100-200 cc over the last 24 hr. Output is consistent with succus however. Gastrostomy tube output is less bilious today. Abdomen is soft and nondistended. She is appropriately but minimally tender to palpation. No guarding or rebound. Gastrostomy tube site is clean, dry, and intact. Wound is granulating nicely with no gross pus. No succus within the dressing. The dressing is at least 12 hr old and has essentially minimal contamination. Fistula catheter remains in good position functioning well. Extremities show no clubbing or cyanosis Objective Labs Result Diagrams: 07/02/18 05:45 07/02/18 18:05 Labs: Laboratory Results - last 24 hr 07/02/18 07/02/18 18:05 18:05 Creatinine 1.00 Estimated GFR 58.5 L Random Vancomycin 17.3 Vancomycin level is appropriate. No new laboratory or radiographic studies for review otherwise today. 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 She has no signs of sepsis. Cultures show gram-positive cocci but no further identification as yet. We will continue the TPN and lipids on the current cycle. Clamped the gastrostomy tube in attempt to convert back to oral Dilaudid, but we will unclamped this a few hours per shift or as needed for nausea/vomiting. Continue oral fluid restrictions at 500 cc per shift. If he tolerates this well then we will discontinue the Dilaudid ICT SECURITY SPECIALIST and saline lock the IV so that she can be more mobile. Continue fistula drainage as above. Twice daily wet-to-dry dressing changes are in place and working well. She is actually healing relatively nicely at this point. I hope to stop the intravenous antibiotics over the next 2-3 days once the cultures are finalized. Hopefully we will be able to discharge her home later this week in the next several days on the above regimen. I discussed this with her in detail. All questions were answered to her satisfaction, and she voiced understanding. Orders were written.
--- NOTE | 2018-07-03 09:04 | P.PN_ITS ---
Subjective Date Patient Seen: 07/03/18 Time Patient Seen: 08:59 Interval history: Patient denies any nausea or vomiting. Continues to pass a small amount of flatus intermittently only. No bowel function per rectum. Still somewhat hungry and wishes to drink but remains on her fluid restriction orally. Pain is controlled with MECHANICAL APPLICATIONS ENGINEER. No further fevers, chills, or rigors. Exam Vital Signs (past 8 hours): - 07/03/18 04:00 07/03/18 05:45 07/03/18 07:45 Temperature 98.2 F 98.4 F Pulse Rate 82 84 Respiratory Rate 16 14 Blood Pressure 104/66 104/54 L Pulse Oximetry 96 99 96 Oxygen Delivery Method Room Air Oxygen Flow Rate 0 Narrative Exam Narrative: Well-nourished well-developed moderately obese female lying in bed in no acute distress. She is easily arousable and alert oriented x3. She is overall somewhat depressed which is not unanticipated. No fevers. No tachycardia. Blood pressure is normal. Good urine output Fistula drainage is actually minimal. The best I can ascertain from the record as well as what is in the container currently is only about 100-200 cc over the last 24 hr. Output is consistent with succus however. Gastrostomy tube output is less bilious today. Abdomen is soft and nondistended. She is appropriately but minimally tender to palpation. No guarding or rebound. Gastrostomy tube site is clean, dry, and intact. Wound is granulating nicely with no gross pus. No succus within the dressing. The dressing is at least 12 hr old and has essentially minimal contamination. Fistula catheter remains in good position functioning well. Extremities show no clubbing or cyanosis Objective Labs Result Diagrams: 07/02/18 05:45 07/02/18 18:05 Labs: Laboratory Results - last 24 hr 07/02/18 07/02/18 18:05 18:05 Creatinine 1.00 Estimated GFR 58.5 L Random Vancomycin 17.3 Vancomycin level is appropriate. No new laboratory or radiographic studies for review otherwise today. 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 She has no signs of sepsis. Cultures show gram-positive cocci but no further identification as yet. We will continue the TPN and lipids on the current cycle. Clamped the gastrostomy tube in attempt to convert back to oral Dilaudid , but we will unclamped this a few hours per shift or as needed for nausea/ vomiting. Continue oral fluid restrictions at 500 cc per shift. If he tolerates this well then we will discontinue the Dilaudid MECHANICAL APPLICATIONS ENGINEER and saline lock the IV so that she can be more mobile. Continue fistula drainage as above. Twice daily wet-to-dry dressing changes are in place and working well. She is actually healing relatively nicely at this point. I hope to stop the intravenous antibiotics over the next 2-3 days once the cultures are finalized. Hopefully we will be able to discharge her home later this week in the next several days on the above regimen. I discussed this with her in detail. All questions were answered to her satisfaction, and she voiced understanding. Orders were written.
[2018-07-03] MEDS: LISINOPRIL 10 MG TABLET PO (09:23)
[2018-07-03] MEDS: HYDROMORPHONE 2 MG TABLET PO ×2 (09:23→13:47)
[2018-07-03] MEDS: CITALOPRAM 20 MG TABLET PO (09:24)
[2018-07-03] MEDS: levoFLOXacin 750 MG/150 ML PIGGYBACK 100 MG IV (14:02)
--- NOTE | 2018-07-03 14:30 | PC.NURSE ---
Pt given 2mg of po dilaudid for pain, stated that the dilaudid earlier this morning was not really effective for pain. Just given another dilaudid about a half hour ago and clamped pts gastrostomy tube. 15 minutes later pt complained of nausea and had a 720cc emesis. Given 1mg of iv ativan. Gastrostomy tube unclamped with greenish colored bile coming out of tube. SENIOR ACCOUNTS PAYABLE CLERK of dilaudid hooked back up at 0.3/10/6. Will check patients pain level in 30 minutes
--- NOTE | 2018-07-03 15:29 | CM.DPC ---
DCP/continued: Reviewed chart. Reviewed notes from Dr. Levy today. Received call from Jennifer/RN ph# [phone] from [facility] re: patient's wound care needs at home. Jennifer reports that [facility] concerned on whether or not patient/family can be taught to do dressings changes also what type of support patient has at home. Provided Jennifer with name/numbers of both Dr. Levy and manager oncology/Amanda. Jennifer plans to call to confirm dressing change orders and determine if [facility] can accept referral. In addition, spoke with Kiran at [facility] they continue to be on board for TPN in the home. Kiran also reports that they can do PICC dressing changes and lab draws if needed. Kiran plans to meet with patient today to touch base re: TPN and continue to follow. P: Pending. Do not suggest this patient be discharged over the weekend secondary to home needs. [facility] has not accepted referral for wound care. They would like to review updated information and confirm that patient can safely manage prior to acceptance. BRENDAN Lan
[2018-07-03] MEDS: LORazepam 2 MG/ML SYRINGE 1 MG IV ×2 (16:44→23:06)
[2018-07-03] MEDS: ENOXAPARIN 40 MG/0.4 ML SYRINGE SUBCUT (16:44)
[2018-07-03] MEDS: [UNRECOGNIZED DRUG - OTHER] IV (18:08)
[2018-07-03] MEDS: SODIUM CHLORIDE 0.9% IV (18:08)
[2018-07-03] MEDS: CALCIUM IV (18:08)
[2018-07-03] MEDS: LYTES IV (18:08)
[2018-07-03] MEDS: DEXT IV (18:08)
[2018-07-03] MEDS: HYDROMORPHONE PCA 6 MG/30 ML PCA.VIAL 3.9 MG IV (23:07)
--- NOTE | 2018-07-03 23:45 | PC.NURSE ---
Wet to dry drsg changed, pako-skin clean and dry, wound bed pink and dry, fistula drain in place draining brown/green; gastrostomy tube draining brown to gravity; IV Ativan for wound care and bed time; TPN infusing; NS TKO for ASSOCIATE STORE MANAGER; pt used 3.9 mg Dilaudid during shift; LS clear, O2 RA=97% and daughter visited at dinner time; call light within reach
[2018-07-04] VITALS (8 sets, daily range): BP systolic 100–137; BP diastolic 55–78; PULSE 76–83; RESP 16–18; TEMP 36.6–37.3; O2SAT 95–98
[2018-07-04] MEDS: CLINDAMYCIN 600 MG/50 ML PIGGYBACK 50 MG IV ×3 (03:33→18:59)
[2018-07-04] MEDS: HYDROMORPHONE PCA 6 MG/30 ML PCA.VIAL IV ×3 (06:14→21:18)
[2018-07-04] MEDS: LORazepam 2 MG/ML SYRINGE 1 MG IV ×2 (06:15→21:17)
[2018-07-04 06:16] LABS: Add Manual Diff / Slide Review NO; Basophils Absolute Auto 100 /uL (0-100); Basophils Percent Auto 1.1 % (0-2); Eosinophils Absolute Auto 300 /uL (0-450); Hematocrit 24.7 % (36-46); Hemoglobin 8.4 g/dL (12.0-16.0); Lymphocytes Absolute Auto 1800 /uL (1100-4500); Lymphocytes Percent Auto 34.7 % (25-40); Mean Corpuscular HGB Conc 34.1 % (30-36); Mean Corpuscular Hemoglobin 28.1 PG (26-34); Mean Corpuscular Volume 82.3 fL (80-100); Monocytes Absolute Auto 500 /uL (0-900); Monocytes Percent Auto 9.9 % (3-14); Neutrophils Absolute Auto 2500 /uL (1500-7000); Neutrophils Percent Auto 49.3 % (50-75); Platelet Count 367 X10^3/uL (150-400); Red Cell Distribution Width 16.6 % (11.6-14.8); White Blood Cell Count 5.1 X10^3/uL (4.5-11.0)
[2018-07-04 06:38] LABS: Blood Urea Nitrogen 17 mg/dL (7-17); Calcium 8.5 mg/dL (8.4-10.2); Carbon Dioxide 28 mmol/L (22-32); Chloride 102 mmol/L (98-107); Estimated Glomerular Filt Rate 58.5 mL/min (>60); Glucose 113 mg/dL (70-100); HEMOLYSIS < 15 (0-50); Sodium 136 mmol/L (137-145)
--- NOTE | 2018-07-04 06:44 | PC.NURSE ---
0615 Requested 1 mg. of Lorazepam for nausea, cleared 1.2 mg. of her Dilaudid CHANNEL MARKETING SPECIALIST. Will cont. POC & monitor.
[2018-07-04 06:54] LABS: Magnesium 1.6 mg/dL (1.6-2.3)
--- NOTE | 2018-07-04 08:54 | PM.PN.1 ---
Subjective Date Patient Seen: 07/04/18 Time Patient Seen: 08:55 Interval history: Patient had significant nausea and episode of bilious emesis last evening after clamping her gastrostomy tube. G-tube is now back to gravity. No flatus or bowel function per rectum. Fistula output remains minimal. Patient continues to drink water at the volume restriction indicated which is mostly draining into the gastrostomy tube. However, gastrostomy tube output is now bilious. Denies any subjective fever or chills. No chest pain or shortness of breath. Abdominal pain is minimal. Exam Vital Signs (past 8 hours): - 07/04/18 06:10 07/04/18 08:06 Temperature 97.9 F 98.0 F Pulse Rate 76 77 Respiratory Rate 16 16 Blood Pressure 107/64 108/64 Pulse Oximetry 96 98 Oxygen Delivery Method Room Air Oxygen Flow Rate 0 Narrative Exam Narrative: Obese female lying in bed in no acute distress. She remains with a relatively flat affect but is otherwise appropriate and alert. Oriented x3. Chest clear to auscultation bilaterally. No crackles or wheezes. Abdomen is soft and nondistended. She is appropriately tender around the wound. Gastrostomy tube site is clean without erythema. Output is as above. I personally change the wound dressing which shows excellent granulation along the wound bed. The wound is actually closing and becoming more superficial. The skin is completely intact without erythema. Fistula catheter remains in place with minimal output. I flushed the catheter today with some saline and it is clearly patent. Extremities show no clubbing or cyanosis. No edema. Objective Labs Result Diagrams: 07/04/18 05:45 07/04/18 05:45 Labs: Laboratory Results - last 24 hr 07/04/18 07/04/18 07/04/18 05:45 05:45 05:45 WBC 5.1 RBC 3.00 L Hgb 8.4 L Hct 24.7 L MCV 82.3 MCH 28.1 MCHC 34.1 RDW 16.6 H Plt Count 367 Neut % (Auto) 49.3 L Lymph % (Auto) 34.7 [place] % (Auto) 9.9 Eos % (Auto) 5.0 H Baso % (Auto) 1.1 Neut # (Auto) 2500 Lymph # (Auto) 1800 [place] # (Auto) 500 Eos # (Auto) 300 Baso # (Auto) 100 Sodium 136 L Potassium 4.0 Chloride 102 Carbon Dioxide 28 BUN 17 Creatinine 1.00 Estimated GFR 58.5 L BUN/Creatinine Ratio 17.0 Glucose 113 H Calcium 8.5 Magnesium 1.6 Assessment & Plan Plan: Assessment/Plan Narrative: 53-year-old female with ongoing enterocutaneous fistula status post laparotomy. However, she may still have issues with partial small bowel obstruction as evidence by her nausea, vomiting, and bilious gastrostomy tube output. At this point we will leave the gastrostomy tube to gravity drainage without any an effort to clamp it. I will need to find alternative to oral analgesia so that I can continue to wean the STUDIO DIRECTOR. Obviously, she cannot be discharged home on a STUDIO DIRECTOR. I will add a fentanyl patch today and potentially add sublingual morphine tomorrow and discontinue the STUDIO DIRECTOR. Likely discontinue the antibiotics tomorrow as well. She has no new culture data other than a staphylococcal species that is sensitive to all current antibiotics. Continue to cycle the TPN on the current formula. Her electrolytes laboratory studies are essentially normal. Her white blood cell count is completely normal as well. Anemia is stable. I see no evidence of abscess or other infectious issues. Continue to be out of bed. I am hoping to discharge her home with the above regimen within the next 2 days or so. I discussed the case with discharge coordinators. Orders were written today. All the above discussed with the patient in detail. She was agreeable to the plan.
--- NOTE | 2018-07-04 08:59 | P.PN_ITS ---
Subjective Date Patient Seen: 07/04/18 Time Patient Seen: 08:55 Interval history: Patient had significant nausea and episode of bilious emesis last evening after clamping her gastrostomy tube. G-tube is now back to gravity. No flatus or bowel function per rectum. Fistula output remains minimal. Patient continues to drink water at the volume restriction indicated which is mostly draining into the gastrostomy tube. However, gastrostomy tube output is now bilious. Denies any subjective fever or chills. No chest pain or shortness of breath. Abdominal pain is minimal. Exam Vital Signs (past 8 hours): - 07/04/18 06:10 07/04/18 08:06 Temperature 97.9 F 98.0 F Pulse Rate 76 77 Respiratory Rate 16 16 Blood Pressure 107/64 108/64 Pulse Oximetry 96 98 Oxygen Delivery Method Room Air Oxygen Flow Rate 0 Narrative Exam Narrative: Obese female lying in bed in no acute distress. She remains with a relatively flat affect but is otherwise appropriate and alert. Oriented x3. Chest clear to auscultation bilaterally. No crackles or wheezes. Abdomen is soft and nondistended. She is appropriately tender around the wound. Gastrostomy tube site is clean without erythema. Output is as above. I personally change the wound dressing which shows excellent granulation along the wound bed. The wound is actually closing and becoming more superficial. The skin is completely intact without erythema. Fistula catheter remains in place with minimal output. I flushed the catheter today with some saline and it is clearly patent. Extremities show no clubbing or cyanosis. No edema. Objective Labs Result Diagrams: 07/04/18 05:45 07/04/18 05:45 Labs: Laboratory Results - last 24 hr 07/04/18 07/04/18 07/04/18 05:45 05:45 05:45 WBC 5.1 RBC 3.00 L Hgb 8.4 L Hct 24.7 L MCV 82.3 MCH 28.1 MCHC 34.1 RDW 16.6 H Plt Count 367 Neut % (Auto) 49.3 L Lymph % (Auto) 34.7 [place] % (Auto) 9.9 Eos % (Auto) 5.0 H Baso % (Auto) 1.1 Neut # (Auto) 2500 Lymph # (Auto) 1800 [place] # (Auto) 500 Eos # (Auto) 300 Baso # (Auto) 100 Sodium 136 L Potassium 4.0 Chloride 102 Carbon Dioxide 28 BUN 17 Creatinine 1.00 Estimated GFR 58.5 L BUN/Creatinine Ratio 17.0 Glucose 113 H Calcium 8.5 Magnesium 1.6 Assessment & Plan Plan: Assessment/Plan Narrative: 53-year-old female with ongoing enterocutaneous fistula status post laparotomy. However, she may still have issues with partial small bowel obstruction as evidence by her nausea, vomiting, and bilious gastrostomy tube output. At this point we will leave the gastrostomy tube to gravity drainage without any an effort to clamp it. I will need to find alternative to oral analgesia so that I can continue to wean the GASKET MAKER. Obviously, she cannot be discharged home on a GASKET MAKER. I will add a fentanyl patch today and potentially add sublingual morphine tomorrow and discontinue the GASKET MAKER. Likely discontinue the antibiotics tomorrow as well. She has no new culture data other than a staphylococcal species that is sensitive to all current antibiotics. Continue to cycle the TPN on the current formula. Her electrolytes laboratory studies are essentially normal. Her white blood cell count is completely normal as well. Anemia is stable. I see no evidence of abscess or other infectious issues. Continue to be out of bed. I am hoping to discharge her home with the above regimen within the next 2 days or so. I discussed the case with discharge coordinators. Orders were written today. All the above discussed with the patient in detail. She was agreeable to the plan.
[2018-07-04] MEDS: CITALOPRAM 20 MG TABLET PO (09:39)
[2018-07-04] MEDS: fentaNYL 25 MCG/PATCH TOP (09:54)
--- NOTE | 2018-07-04 10:16 | PC.NURSE ---
Student nurse note: Pt enjoyed her one red popsicle per day at 10:15am.
--- NOTE | 2018-07-04 11:52 | PC.NURSE ---
Addendum entered by Camilla Banks R.N. 07/04/18 14:47: Pts gastrostomy tube leaking around insertion site. This also happened last evening. Drainage a very small amount. Dressed area with abd pad, pt had 225cc of greenish colored bile out. Fistula drain to wall suction with 40cc of brownish colored drainage. Pt has not been nauseated this shift and has not required any ativan. Original Note: Pts gastrostomy tube to left side of abdomen with greenish colored drainage. Incision to midline is cdi and changed her dressing this morning. Fistula drain is hooked up to wall suction and draining a brown colored drainage. Pt states that she does not have nausea at this time and is tolerating her new fentanyl patch 25mcg well.
[2018-07-04] MEDS: levoFLOXacin 750 MG/150 ML PIGGYBACK 100 MG IV (13:44)
[2018-07-04] MEDS: SODIUM CHLORIDE 0.9% IV (18:10)
[2018-07-04] MEDS: LYTES IV (18:10)
[2018-07-04] MEDS: DEXT IV (18:10)
[2018-07-04] MEDS: [UNRECOGNIZED DRUG - OTHER] IV (18:10)
[2018-07-04] MEDS: CALCIUM IV (18:10)
[2018-07-04] MEDS: ENOXAPARIN 40 MG/0.4 ML SYRINGE SUBCUT (18:10)
[2018-07-04] MEDS: FAT EMULSIONS 50 GM/250 ML EMULSION IV (18:57)
[2018-07-04] MEDS: ONDANSETRON 4 MG ODT SL (21:17)
[2018-07-05] VITALS (8 sets, daily range): BP systolic 86–150; BP diastolic 50–94; PULSE 77–89; RESP 14–18; TEMP 36.6–37.2; O2SAT 95–98
--- NOTE | 2018-07-05 | DI.RAD.S_ITS ---
PROCEDURE: XR ABDOMEN MIN 2V INDICATIONS: acute severe pain, vomiting TECHNIQUE: 2 views of the abdomen were acquired. COMPARISON: None. FINDINGS: Surgical changes and devices: An abdominal drain is projected over the left abdomen. Bowel: There are multiple gas-filled, dilated loops of small bowel within the midabdomen. Some gas is present within the ascending and transverse colon. No pneumoperitoneum. Soft tissues: No masses; visualized solid organ contours appear normal in size. No suspicious abdominal calcifications. Bones: No suspicious bony abnormalities. IMPRESSION: 1. Dilated small bowel with trace amount of gas in the colon. Differential considerations include partial small bowel obstruction versus ileus. Dictated by: Kiana Dave M.D. on 07/05/2018 at 18:29 Approved by: Kiana Dave M.D. on 07/05/2018 at 18:30
[2018-07-05] MEDS: LORazepam 2 MG/ML SYRINGE 1 MG IV (02:38)
--- NOTE | 2018-07-05 03:31 | PC.NURSE ---
0315 Pt. awake & up to the BSC. Dressings x2 changed noted scant, leakage @ gastrostomy site. Wet to dry drsg. changed wound clean & pink. Medicated with 1 mg. of Lorazepam IVP & used her Dilaudid SECURITY GUARD DISPATCHER prior to drsg. changed. Will cont. POC & monitor.
[2018-07-05] MEDS: HYDROMORPHONE PCA 6 MG/30 ML PCA.VIAL IV (05:41)
--- NOTE | 2018-07-05 09:02 | PM.PN.1 ---
Subjective Date Patient Seen: 07/05/18 Time Patient Seen: 09:03 Interval history: Patient denies any significant pain, fever, chills, rigors, or shortness of breath. She is somewhat frustrated about limited ambulation since the nursing staff did not disconnect the suction from the fistula catheter thereby limiting her mobility. Tolerating some clear liquids by mouth with G-tube to gravity. Passing some small amount of flatus but no bowel movements. No dysuria or hematuria. Exam Vital Signs (past 8 hours): - 07/05/18 06:00 Temperature 98.1 F Pulse Rate 78 Respiratory Rate 17 Blood Pressure 100/67 Pulse Oximetry 97 Oxygen Delivery Method Room Air Oxygen Flow Rate 0 Narrative Exam Narrative: Patient resting comfortably in bed in no acute distress. Alert oriented x3. She is obviously depressed and somewhat tearful during my visit. Remains afebrile and otherwise hemodynamically stable with normal blood pressure in no tachycardia Good urine output Gastrostomy tube has drained approximately 1 L in the last day or so. Fistula output is hard to quantitate but nursing records show approximately 900 cc output yesterday. Unfortunately the canister has been changed and I cannot corroborate that volume. Dressing was changed at approximately 2:00 a.m. this morning although patient states it was not saturated. Current dressing is completely clean and intact. I personally change this and flushed the fistula catheter as well without difficulty. Patient tolerated this well. The wound itself is granulating nicely and continues to close becoming more superficial in nature. Skin is completely intact without erythema. Gastrostomy tube site is also clean. G-tube output is less bilious today. Extremities show no clubbing, cyanosis, or edema Chest is clear to auscultation bilateral Objective Labs Result Diagrams: 07/04/18 05:45 07/04/18 05:45 Labs: Culture results so staphylococcal species as before. The anaerobic cultures now growing a gram negative bacillus which is yet to be identified. Assessment & Plan Plan: Assessment/Plan Narrative: 53-year-old female who is doing well with no evidence of infections or other complications at this time. Cultures are still pending with regard to final report. However, she has no evidence of sepsis and I have stopped her antibiotics last evening. I believe she has been appropriately treated. Wound is healing nicely. Continue wet-to-dry twice daily dressing changes. Continue fistula catheter to suction although this can be capped while she is up and ambulating. I have clarified this with the nursing staff as well as in the orders. Convert to oral analgesia with sublingual morphine in addition to the fentanyl patch today. Convert oral Ativan as well as she cannot be discharged on intravenous medications. I discussed this with her and she voiced understanding. Discontinue the LAUNDROMAT MANAGER. Ambulate aggressively. We will leave the gastrostomy tube to gravity for now as she may still be somewhat partially obstructed but she is having some flatus. Continue to cycle TPN at current regimen. Repeat CBC and complete metabolic panel tomorrow. I informed the patient that I tentatively had planned for discharge home with home health nursing and infusion therapy. I have repeatedly discussed this plan with the discharge coordinators over the last 1-2 weeks. After my visit with the patient and writing the above orders I once again met with the move coordinator to discuss the plan. I am informed at this time that the [facility] health services believe that the patient now is too high acuity for them to be comfortable with her care in the home environment. I am just learning this for the 1st time although apparently this has been related to other staff over the last week or so. I will defer to the expertise of the discharge coordinators to find alternatives, but by my understanding this would entail most likely a long-term facility. I do not believe the patient will tolerate that well and may very likely refuse. I will await alternative plans were to discharge coordinating team and discussed them with the patient as they develop. In the interim we will proceed as above. All the patient's questions were answered to her satisfaction today, and she voiced understanding. Again, she was agreeable to the home health plan at the time of my visit earlier this morning. Orders were written.
--- NOTE | 2018-07-05 09:10 | P.PN_ITS ---
Subjective Date Patient Seen: 07/05/18 Time Patient Seen: 09:03 Interval history: Patient denies any significant pain, fever, chills, rigors, or shortness of breath. She is somewhat frustrated about limited ambulation since the nursing staff did not disconnect the suction from the fistula catheter thereby limiting her mobility. Tolerating some clear liquids by mouth with G-tube to gravity. Passing some small amount of flatus but no bowel movements. No dysuria or hematuria. Exam Vital Signs (past 8 hours): - 07/05/18 06:00 Temperature 98.1 F Pulse Rate 78 Respiratory Rate 17 Blood Pressure 100/67 Pulse Oximetry 97 Oxygen Delivery Method Room Air Oxygen Flow Rate 0 Narrative Exam Narrative: Patient resting comfortably in bed in no acute distress. Alert oriented x3. She is obviously depressed and somewhat tearful during my visit. Remains afebrile and otherwise hemodynamically stable with normal blood pressure in no tachycardia Good urine output Gastrostomy tube has drained approximately 1 L in the last day or so. Fistula output is hard to quantitate but nursing records show approximately 900 cc output yesterday. Unfortunately the canister has been changed and I cannot corroborate that volume. Dressing was changed at approximately 2:00 a.m. this morning although patient states it was not saturated. Current dressing is completely clean and intact. I personally change this and flushed the fistula catheter as well without difficulty. Patient tolerated this well. The wound itself is granulating nicely and continues to close becoming more superficial in nature. Skin is completely intact without erythema. Gastrostomy tube site is also clean. G- tube output is less bilious today. Extremities show no clubbing, cyanosis, or edema Chest is clear to auscultation bilateral Objective Labs Result Diagrams: 07/04/18 05:45 07/04/18 05:45 Labs: Culture results so staphylococcal species as before. The anaerobic cultures now growing a gram negative bacillus which is yet to be identified. Assessment & Plan Plan: Assessment/Plan Narrative: 53-year-old female who is doing well with no evidence of infections or other complications at this time. Cultures are still pending with regard to final report. However, she has no evidence of sepsis and I have stopped her antibiotics last evening. I believe she has been appropriately treated. Wound is healing nicely. Continue wet-to-dry twice daily dressing changes. Continue fistula catheter to suction although this can be capped while she is up and ambulating. I have clarified this with the nursing staff as well as in the orders. Convert to oral analgesia with sublingual morphine in addition to the fentanyl patch today. Convert oral Ativan as well as she cannot be discharged on intravenous medications. I discussed this with her and she voiced understanding. Discontinue the MANAGER APPLICATION. Ambulate aggressively. We will leave the gastrostomy tube to gravity for now as she may still be somewhat partially obstructed but she is having some flatus. Continue to cycle TPN at current regimen. Repeat CBC and complete metabolic panel tomorrow. I informed the patient that I tentatively had planned for discharge home with home health nursing and infusion therapy. I have repeatedly discussed this plan with the discharge coordinators over the last 1-2 weeks. After my visit with the patient and writing the above orders I once again met with the medical coordinator pesticide use to discuss the plan. I am informed at this time that the [facility] health services believe that the patient now is too high acuity for them to be comfortable with her care in the home environment. I am just learning this for the 1st time although apparently this has been related to other staff over the last week or so. I will defer to the expertise of the discharge coordinators to find alternatives, but by my understanding this would entail most likely a group home facility. I do not believe the patient will tolerate that well and may very likely refuse. I will await alternative plans were to discharge coordinating team and discussed them with the patient as they develop. In the interim we will proceed as above. All the patient's questions were answered to her satisfaction today, and she voiced understanding. Again, she was agreeable to the home health plan at the time of my visit earlier this morning. Orders were written.
[2018-07-05] MEDS: CITALOPRAM 20 MG TABLET PO (09:11)
[2018-07-05] MEDS: LORazepam 1 MG TABLET PO ×2 (09:18→15:54)
[2018-07-05] MEDS: MORPHINE 10 MG/0.5 ML ORAL SYRINGE PO ×3 (10:51→18:30)
--- NOTE | 2018-07-05 13:17 | CM.DPNOTE ---
Reviewed notes. Reviewed DCP coordination efforts w/ Dr Levy and Amanda Sellers this morning. Amanda has been in close contact w/ Jennifer at [facility]. Amanda is advocating for pt to return home next week and will be collaborating w/Dr Levy to get alexandro's nursing staff information about the current wound care and anticipated length of time for each RN visit. [facility] will not be available over night or on the weekends to provide any consultation. As of now, 1320, Amanda feels [facility] will accept pt's HH care next week, and alexandro can provide 3 nursing visits per week. Amanda visiting pt today and has an idea on how pt could DC w/o the suction device, more to come on this. Amanda also anticipates seeing pt in clinic once a week, it's possible Dr Levy could combine his weekly visit w/ the one at wound care, D. Updated pt on efforts to get her DC home next week. This LOG CHAIN FEEDER asked, in case all efforts fall through; would she be willing to consider SNF? Pt became very teary, as this LOG CHAIN FEEDER anticipated, and said she would consider if I had to. Pt then explained that she has a few friends she feels would be willing to do two things 1. drive her to scheduled outpt appts. and 2. Provide hands on wound care for her. This LOG CHAIN FEEDER encouraged pt to ask her people to come in and begin to watch and learn the wound care needed for a home DC. Strongly encouraged pt to get commitment from her family and friends re: what they are capable of ? In order for the DC planning team to coordinate a realistic/feasible outpt plan. Pt voiced understanding. Contacted Dr Levy and asked if DC goal could be early next week? Dr Levy agreeable and advocating for pt to return home per pt's wishes. This LOG CHAIN FEEDER updated Kiran w/[facility] on anticipated DC date and confirmed that they can provide PICC management and labs. Efforts continue in advocating for pt's safe return home. Dr Levy made aware today that pt's clinical needs/wound care are acute to the point that [facility] requesting a lot of clarifying information from DC planners and Amanda Sellers. [facility] will be providing HH management that they will not get fully reimbursed for d/t pt's Medicaid insurance. P: Home next week w/ alexandro SALDANA x3 weekly, [facility] for TPN, 1-2 weekly clinic visits, friends and family for addtl. wound care, and hopefully no suction needed upon DC. Following. BRENDAN Verde
--- NOTE | 2018-07-05 14:08 | PC.NURSE ---
Wound Ostom Nurse Note I was notified by JUNIOR Rodriguez, ALLY from [facility] regarding discharge planning for Mrs. Reyes. Jennifer states that Mrs. Reyes's nursing need may be to high in acuity to manage in a home care setting. The plan would be for Mrs. Reyes to have her fistula drain attached to suction, GT to gravity, wound care and IV infusion of TPN. [facility] would be responsible for fistula management, wound care and GT care and [facility] would be responsible for TPN infusion. Jennifer states that there is no way they can accommodate a Monday discharge from [facility] and that at most they would only be able to see the patient three times a week with no PRN visits. Jennifer states that if the patient was to have a problem during the night or on the weekend there would be no nursing support and the patient would have to return to the ER and possibly be re-admitted. I went up to Care Management and spoke with whom is managing Mrs. Reyes today. I relayed [facility] concerns and also voiced my concerns about discharging Mrs. Reyes tomorrow. [facility] also would like to know what the approximate length of each visit would be and they would like a clear cut statement of nursing orders, as well who is in the home that can help with Mrs. Reyes's fistula management, GT management and wound care in between times when [facility] can not be providing care beyond three times a week. As we were discussing the issues for discharge Dr. Levy arrived and I told him that I spoke with [facility] wound/ostomy nurse and her concerns for having this patient discharge home. Dr Levy stated that he already spoke to Mrs. Reyes telling her that she would be discharged tomorrow. Dr. Levy stated that we should come up with a plan for discharge and speak to Mrs. Reyes. has been communicating with the Care Management team for over two weeks discussing discharge planning and was not pleased that [facility] is not will to admit Mrs. Reyes to their services tomorrow or over the weekend. I told I would contact [employer] and ask about a product they have for fistula management and that I would also speak with JUNIOR Rodriguez from [facility] again to once again review their concerns. I did speak with the [employer] vendor and their product would not, at this time work for this particular fistula. I spoke again with Jennifer and she reiterated that they need a specific statement with the nursing orders, and again has concerns that they can only see the patient three times a week and that Mrs. Reyes will need daily nursing care. At best she said it might be possible for an admission to their services on July 09, although Jennifer has concerns with Mrs. Reyes's needs and acuity for home care. I spoke with Dr. Diego about the possibility of having Mrs. Reyes come to the wound care center once a week and he said that was possible. I also spoke to Soni Wills the Auto Polisher of the wound care center and she also agreed that we could see the patient if Dr. Diego agreed. I went over to [facility] to speak to Dr. Levy about discharge planning and my conversation I have had with BRENDAN Alvarado and JUNIOR Rodriguez from [facility]. I also wanted to ask him if I could help with the nursing care and order for wound care and fistula management. I let him know that Radha would like clear statement nursing care and orders and that Dr. Diego is willing to see Mrs. Reyes at the wound care center to help with wound care and fistula management. Dr. Levy agreed to having Mrs. Reyes go to the wound care center and he would also come do the the wound care center ([facility]) to see patient during her wound care visit. I also stated that she would need to have her fistula tube clamped for this visit as there is no wall suction to contain the fistula effluent. I spoke to again stating that I spoke with Dr. Levy and that I will be able to help with the wound care, fistula and GT management for discharge as well as Dr. Diego willing to see the patient at the [facility]. I went to the floor and spoke with Mrs. Reyes stating that we are working on a plan for discharge for July 09. I asked if she had friends that would be able to help her and she said yes. Her room was dark, her television was on and she did not open her eyes when I was speaking to her or examining her dressing. She has a very flat affect. I told her I would return around 6:00 to help change her dressing so I could assess her wound and fistula. When I returned to my office I was feeling apprehensive about her plan to discharge to home health. I had reviewed her chart and she has had 900cc/24 hours from her fistula, which is considered a HIGH output fistula. (>500cc/24 h) I have concerns about her friends helping to manage her care. I have concerns that she may not do well at home and need a re-admission. I do understands concern for her mental wellness and that being home can produce help with her depression. I called BRENDAN Alvarado and told her I do have many concerns and feel that it would be good to have a Case Conference including the surgical team, care management, wound care, ethics committee, hospitalist and other care providers that have been involved in her care here at [facility] to make sure we are providing a viable transfer. Upon returning to my office I was still feeling
--- NOTE | 2018-07-05 14:32 | PC.NURSE ---
Patient was tearful this morning and withdrawn after talking with case management about discharge planning. Patient given oral ativan for anxiety per prn orders and tolerated well. C/o stomach pain and cramping and medicated with oral morphine per prn orders (dilaudid buckle stapler was dc'd), with good pain relief. Patient has been encouraged to ambulate this shift, refused ambulation with this RN 4 times today, but agrees at this point to try and get up and walk before change of shift. Fistula to suction can be capped when patient is up ambulating. G tube intact and to gravity. BSC for spontaneous void without difficulty, sb assistance. call light within reach, continue to monitor.
--- NOTE | 2018-07-05 16:34 | PC.NURSE ---
Addendum entered by Hamzah Mcleod R.N. 07/05/18 19:04: ABD PAIN MUCH BETTER,ORAL MORPHINE GIVEN AFTER XRAY Original Note: Addendum entered by Hamzah Mcleod R.N. 07/05/18 16:59: UPDATED,WILL ORDER IV PAIN MED, AND ABD XRAY Original Note: PATIENT IS BACK IN BED AFTER AMBULATION IN HALLS AT CHANGE OF SHIFT,HAVING LOTS OF ABD CRAMPING NOW,WARM BLANKET PLACED, ZOFRAN AND ATIVAN GIVEN ORAL. FISTULA SUCTION IN PLACE GTUBE TO GRAVITY DRAIN.
[2018-07-05] MEDS: ONDANSETRON 4 MG ODT SL (16:48)
[2018-07-05] MEDS: ENOXAPARIN 40 MG/0.4 ML SYRINGE SUBCUT (17:19)
[2018-07-05] MEDS: HYDROMORPHONE 2 MG INJ 1 MG IV ×2 (17:21→21:04)
[2018-07-05] MEDS: DEXT IV (18:45)
[2018-07-05] MEDS: CALCIUM IV (18:45)
[2018-07-05] MEDS: POTASSIUM CHLORIDE IV (18:45)
[2018-07-05] MEDS: LYTES IV (18:45)
[2018-07-05] MEDS: [UNRECOGNIZED DRUG - OTHER] IV (18:45)
[2018-07-05] MEDS: SODIUM CHLORIDE 0.9% 1,800 ML 112.5 ML IV (18:49)
--- NOTE | 2018-07-05 18:49 | PC.NURSE ---
Wound Ostomy Nursing Note Mrs. Reyes in bed. Hamzah and I changed her abdominal dressing. I am very pleases with the way her wound looks and with the amount of fistula drainage. Her fistula tube has less than 25cc in the canister which was not on wall suction while she was down at x-ray and when we re-applied the wall suction there was no drainage from the fistula tube. Her wound measure 9.0 x2.0 x2.0. It is beefy red, moist with granulation tissue. The wound edges are attached. There was a small amount of serous drainage. The wound bed is clean without slough. The fistula tube is in place at the proximal end of the wound. The GT is draining to gravity with green drainage. Mrs. Reyes recently had dilaudid for abdominal pain. She is not currently in pain. I feel that Mrs. Reyes would be able to have her nursing care managed by home health. I asked her about her two friends and she said they would learn how to take care of her dressings. I feel that her wound could be manage by the [facility] surgical team and that she does not need to be seen in the wound care center as it is healing very nicely. I did tell Mrs. Reyes that I had reservations about her being discharged to home health, but now after assessing her wounds and fistula drainage that I feel confident that [facility] can manage her care. I will speak with Care Management tomorrow morning as well as Dr. Levy.
--- NOTE | 2018-07-05 20:39 | PC.NURSE ---
Addendum entered by Rosibel Reese R.N. 07/05/18 20:56: At 2035 this RN documented 0 under both drains. This was the only way the names of the drains could be changed. The output of each drain will be documented later in the evening shift. Original Note: Drains- under I&O the drain out put names where changed from lower medial abdomen and abdomen to Drain A and Drain B. The wall suction for the fistula should be documented under drain A, which has been marked on the wall suction canister as drain A. The Gastrostomy tube that is draining into a wallis bag will be documented under drain B, which also has been marked as drain B on the wallis bag.
[2018-07-06] VITALS (8 sets, daily range): BP systolic 102–131; BP diastolic 61–74; PULSE 73–97; RESP 16–18; TEMP 36.6–36.8; O2SAT 97–99
[2018-07-06] MEDS: HYDROMORPHONE 2 MG INJ 1 MG IV (00:02)
[2018-07-06] MEDS: LORazepam 1 MG TABLET PO ×3 (02:18→22:47)
--- NOTE | 2018-07-06 05:59 | PC.NURSE ---
Pt is A and O x 4, rating pain 8/10, she had IVP dilaudid with good results and Ativan for sleep aid. Blood sugars (121, 120). Voiding, drinking and able to sleep.
[2018-07-06 06:12] LABS: Add Manual Diff / Slide Review NO; Basophils Absolute Auto 100 /uL (0-100); Basophils Percent Auto 1.4 % (0-2); Eosinophils Absolute Auto 200 /uL (0-450); Eosinophils Percent Auto 4.3 % (2-4); Hematocrit 25.3 % (36-46); Hemoglobin 8.6 g/dL (12.0-16.0); Lymphocytes Absolute Auto 2000 /uL (1100-4500); Lymphocytes Percent Auto 38.8 % (25-40); Mean Corpuscular HGB Conc 33.8 % (30-36); Mean Corpuscular Hemoglobin 27.8 PG (26-34); Mean Corpuscular Volume 82.2 fL (80-100); Monocytes Absolute Auto 500 /uL (0-900); Monocytes Percent Auto 9.2 % (3-14); Neutrophils Absolute Auto 2400 /uL (1500-7000); Neutrophils Percent Auto 46.3 % (50-75); Platelet Count 310 X10^3/uL (150-400); Red Blood Cell Count 3.08 X10^6/uL (4.0-5.2); Red Cell Distribution Width 17.2 % (11.6-14.8); White Blood Cell Count 5.3 X10^3/uL (4.5-11.0)
[2018-07-06 06:30] LABS: Alanine Aminotransferase 23 IU/L (9-52); Albumin 2.6 g/dL (3.5-5.0); Albumin Globulin Ratio 0.8 (1.0-2.8); Alkaline Phosphatase 60 U/L (38-126); Aspartate Aminotransferase 15 IU/L (14-36); Bilirubin Total 0.2 mg/dL (0.2-1.3); Blood Urea Nitrogen 16 mg/dL (7-17); Calcium 8.3 mg/dL (8.4-10.2); Carbon Dioxide 30 mmol/L (22-32); Chloride 102 mmol/L (98-107); Estimated Glomerular Filt Rate > 60.0 mL/min (>60); Globulin 3.1 g/dL (1.7-4.1); Glucose 103 mg/dL (70-100); HEMOLYSIS < 15 (0-50); Sodium 138 mmol/L (137-145); Total Protein 5.7 g/dL (6.3-8.2)
[2018-07-06] MEDS: MORPHINE 10 MG/0.5 ML ORAL SYRINGE PO ×3 (11:35→18:56)
[2018-07-06] MEDS: CITALOPRAM 20 MG TABLET PO (11:36)
[2018-07-06] MEDS: SODIUM CHLORIDE 0.9% FLUSH 10 ML IV (11:41)
[2018-07-06] MEDS: LISINOPRIL 10 MG TABLET PO (11:49)
--- NOTE | 2018-07-06 11:53 | P.PN_ITS ---
Subjective Date Patient Seen: 07/06/18 Time Patient Seen: 11:49 Interval history: Patient had nausea and vomiting last evening at the time of my visit but none since. Gastrostomy tube output is approximately 900 cc but less bilious today. Patient continues to take some amount of popsicle and water by mouth. She seems to be tolerating this this morning. She is no longer having any crampy abdominal pain but has received some medication for some diffuse mild abdominal pain. Denies any soilage of her dressing. No dysuria or hematuria. No chest pain or shortness of breath. No rigors or fevers. No chills. Denies any flatus or bowel function per rectum. Exam Vital Signs (past 8 hours): - 07/06/18 06:12 07/06/18 08:10 07/06/18 11:07 Temperature 97.9 F 98.2 F 98.1 F Pulse Rate 97 H 73 78 Respiratory Rate 18 16 18 Blood Pressure 117/67 102/61 117/72 Pulse Oximetry 97 98 97 Oxygen Delivery Method Room Air Oxygen Flow Rate 0 Narrative Exam Narrative: Patient lying in bed in no acute distress. However, she is clearly depressed with a somewhat flat affect. Remains afebrile and without tachycardia. Blood pressure normal Adequate urine output Fistula output is essentially minimal at less than 100 cc per 24 hr. Nevertheless the fluid in the suction canister is consistent with succus. Gastrostomy tube output is as above in HPI Chest clear to auscultation bilaterally with regular rate and rhythm. No murmurs , gallops, rubs Abdomen is soft and nondistended. She is appropriately tender in the central portion of the abdomen today but without guarding or rebound. Dressing is clean , dry, and intact. Catheter remains in good position within the fistula. Extremities show no clubbing or cyanosis Objective Labs Result Diagrams: 07/06/18 05:54 07/06/18 05:54 Labs: Laboratory Results - last 24 hr 07/06/18 07/06/18 05:54 05:54 WBC 5.3 RBC 3.08 L Hgb 8.6 L Hct 25.3 L MCV 82.2 MCH 27.8 MCHC 33.8 RDW 17.2 H Plt Count 310 Neut % (Auto) 46.3 L Lymph % (Auto) 38.8 Dupage % (Auto) 9.2 Eos % (Auto) 4.3 H Baso % (Auto) 1.4 Neut # (Auto) 2400 Lymph # (Auto) 2000 Dupage # (Auto) 500 Eos # (Auto) 200 Baso # (Auto) 100 Sodium 138 Potassium 4.0 Chloride 102 Carbon Dioxide 30 BUN 16 Creatinine 0.80 Estimated GFR > 60.0 BUN/Creatinine Ratio 20.0 Glucose 103 H Calcium 8.3 L Total Bilirubin 0.2 AST 15 ALT 23 Alkaline Phosphatase 60 Total Protein 5.7 L Albumin 2.6 L Globulin 3.1 Albumin/Globulin Ratio 0.8 L No new culture data Assessment & Plan Plan: Assessment/Plan Narrative: 53-year-old female with 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 She is still somewhat partially obstructed through the small bowel which is not unanticipated given the nature of her disease process and recent operation. We will continue the gastrostomy tube to gravity. Continue her oral clear liquid limited intake. She understands we will not advance her diet probably for several months until this completely resolves. Continue wound care. Will relocate her PICC line today as previously discussed with her. She is off antibiotics and doing well. White blood cell count remained stable and she is afebrile. No evidence of intra-abdominal infection. All questions were answered to her satisfaction, and she voiced understanding. Orders were written.
--- NOTE | 2018-07-06 12:31 | CM.DPC ---
Addendum entered by BRENDAN Daniels 07/06/18 15:46: ADD: Return call from [facility] and they received the clinicals and formula and they do not anticipate any issues with pt's d/c. Return call from Lillie at [facility] who confirms that they can accept the pt at d/c and just need the F2F and d/c summ at discharge with plan of seeing the pt on Monday07/09/18 in the home if pt discharges. BF Original Note: DCP Cont: Per , pt remains stable and has been in close contact with Amanda Wound RN. Per Amanda, pt's fistula has low output (which is good) and her wound looks very good and Dr. Levy would like to continue with suction but this can likely be discontinued shortly after discharge from the hospital. Amanda states that she updated Dr. Levy that after seeing the pt she feels that pt can safely d/c home with HH district manager primary care sales, 2 friends available for wound teaching, and pt does not neccessarily even need outpt wound clinic care. Amanda though feels that pt should not d/c until possibly Mon when HH RN can see pt (since HH RN not available over the w/e). Amanda plans to call [facility] RN and update on above information and recommendations. DAVI called [facility] liaison Lillie and updated on above information and Lillie requested and [facility] note to review and further discuss with their HH RN Jennifer who will be doing the pt's wound care at d/ to confirm that they can successfully accept the pt to service in the home with her limited [facility] insurance coverage. DAVI spoke to [facility] and updated on possible timeline of d/c home with TPN (but no IV-Abx) Mon or Monday and faxed pt's current formulary for TPN to review and lipids. [facility] will review and call back. Plan: DAVI to follow closely for return calls from [facility] and [facility] to confirm that they can accept and will have everything needed for possible d/c Mon or Mon if pt is still medically stable. DAVI to follow for MD signature on F2F for . BRENDAN Daniels
--- NOTE | 2018-07-06 12:57 | PC.NURSE ---
Day Shift- Gastrostomy tube to gravity, clamped at [id number] for medication administration. Mid abd fistula tube to continuous low wall suction, dressing CDI. Enc OOB movement with SBA. BSX4, states passing little flatus this AM. PICC dressing to BRANDON CDI, last changed 07/03. Tapered TPN,IVF per order on AUG.
--- NOTE | 2018-07-06 13:27 | PC.NURSE ---
Wound Ostomy Nursing Note Spoke with Margaret from Care Management this morning telling her I fee that Mrs. Reyes is appropriate for discharge to [facility]. After reviewing the patient's chart and her wound and fistula last evening, I feel [facility] will be able to manage her care. I called Chiquita Zinc the Nursing Patient Safety Tech from [facility] and told her that Mrs. Woodall fistula output was in fact only 25cc/24 hours and that her wound is healing and filling in very well. She stated that they would not be able to do daily dressing changes and I did tell her that did say she has two friends that will help out with dressing changes and that we could also change the actual dressing to something that could provide moist wound healing and remain in the wound for 2-3 days at a time. Chiquita said to let Care Management know that they can call over the weekend for discharge planning.
[2018-07-06] MEDS: ENOXAPARIN 40 MG/0.4 ML SYRINGE SUBCUT (15:55)
--- NOTE | 2018-07-06 16:22 | DI.RAD.S_ITS ---
PROCEDURE: XR CHEST FOR PICC 1V INDICATIONS: line placement TECHNIQUE: One view of the chest was acquired. COMPARISON: [facility], CR, XR CHEST 1V, 06/09/2018, 20:44. FINDINGS: Surgical changes and devices: Left-sided PICC line catheter appears to be unchanged with the tip overlying the high superior vena cava. There has been interval placement of a right-sided PICC line catheter with the tip overlying the same location along the upper aspect of the right superior vena cava. Lungs and pleura: Aeration of the lungs appears to be similar to the prior study. No lobar consolidation or effusion is evident. No obvious pneumothorax is appreciated. Mediastinum: Mediastinal contours appear normal. Heart size is mildly enlarged. Bones and chest wall: No suspicious bony lesions. Overlying soft tissues appear unremarkable. IMPRESSION: New right-sided PICC line catheter is positioned with the tip overlying the high superior vena cava. The left-sided PICC line catheter is positioned at the same level. Dictated by: Javier Gonzáles M.D. on 07/06/2018 at 16:06 Approved by: Javier Gonzáles M.D. on 07/06/2018 at 16:07
--- NOTE | 2018-07-06 17:27 | PC.NURSE ---
Wound Ostomy Nurse Note Received a phone call from JUNIOR Nolan with [facility]. She will be opening Mrs. Reyes on July 09 and she wanted to receive a report on her status. I told her the wound measures 9.0 x 2.0 2.0 cm with clean beefy red granulation tissue. There is not slough in the wound. I also told her that the fistula tube is in place with wall suction and that when I last read her progress note there was around 25cc in 24 hours. I told her her GTube is draining to gravity. I was up on the floor this evening. Her friends and family will be in at 7:30 to watch how to change the dressing. Her evening nurse will do the instructions. I did see Carol and I have not seen her look so well engaged. She is very please to go home. I reinforced with her that I know An and Jennifer from [facility] and they are strong nurses and are very good about keeping myself and the surgeon aware of how their patients are doing. I also reinforced that [facility] is also a very good nursing team. Carol seems very pleased.
[2018-07-06] MEDS: CALCIUM IV (17:46)
[2018-07-06] MEDS: LYTES IV (17:46)
[2018-07-06] MEDS: [UNRECOGNIZED DRUG - OTHER] IV (17:46)
[2018-07-06] MEDS: SODIUM CHLORIDE 0.9% 1,800 ML 60 ML IV (17:46)
[2018-07-06] MEDS: POTASSIUM CHLORIDE IV (17:46)
[2018-07-06] MEDS: DEXT IV (17:46)
[2018-07-06] MEDS: FAT EMULSIONS 50 GM/250 ML EMULSION IV (17:47)
[2018-07-07] VITALS (9 sets, daily range): BP systolic 108–157; BP diastolic 67–96; PULSE 63–83; RESP 16–18; TEMP 36.4–36.9; O2SAT 93–98
[2018-07-07] MEDS: MORPHINE 10 MG/0.5 ML ORAL SYRINGE PO ×6 (00:25→20:31)
[2018-07-07] MEDS: INSULIN ASPART 100 UNIT/ML INSULN PEN SUBCUT (06:12)
[2018-07-07] MEDS: LISINOPRIL 10 MG TABLET PO (09:04)
[2018-07-07] MEDS: SODIUM CHLORIDE 0.9% FLUSH 10 ML IV ×2 (09:04→20:29)
[2018-07-07] MEDS: CITALOPRAM 20 MG TABLET PO (09:04)
[2018-07-07] MEDS: LORazepam 1 MG TABLET PO ×2 (11:21→17:45)
[2018-07-07] MEDS: ACETAMINOPHEN 325 MG TABLET 650 MG PO (11:23)
--- NOTE | 2018-07-07 12:58 | P.PN_ITS ---
Subjective Date Patient Seen: 07/07/18 Time Patient Seen: 12:53 Interval history: Patient in better spirits today. Denies any significant pain. No chest pain or shortness of breath. No dysuria or hematuria. She is more ambulatory over the last day or so. Has some mild skin irritation causing some itching around the gastrostomy tube itself. No further nausea or vomiting. Crampy abdominal pain has resolved over the last 24 hr. She denies any flatus or bowel movement per rectum however. Exam Vital Signs (past 8 hours): - 07/07/18 07:56 07/07/18 08:22 07/07/18 11:00 Temperature 98.1 F 98.4 F Pulse Rate 83 74 Respiratory Rate 16 16 Blood Pressure 108/67 118/74 Pulse Oximetry 98 96 96 Oxygen Delivery Method Room Air Oxygen Flow Rate 0 Narrative Exam Narrative: Well-nourished well-developed female in no acute distress lying comfortably in bed. Alert oriented x3 Patient seen with the attending nurse, Tanesha Titus Chest clear to auscultation bilaterally with regular rate and rhythm. No murmurs , gallops, rubs. No crackles or wheezes. Abdomen is soft and nondistended. She has active bowel sounds. She is minimally tender to palpation. No guarding or rebound tenderness. Fistula catheter remains in place with minimal output. Total output has been recorded as 50 cc over the last 24 hr. Fluid in the suction canister appears less opaque today but is still consistent with succus. Gastrostomy tube has some irritation due to the Prolene suture which I removed today. She tolerated this without any issue. No evidence of cellulitis anywhere along the abdominal wall. Midline wound is clean with excellent beefy granulation. Small amount of drainage in the base of the wound which was removed. Catheter is in good position and patent. Wet-to-dry dressing was changed by me personally today. 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 Partial small bowel obstruction is stable with adequate relief via gastrostomy tube. Plan currently is discharged home with home health nursing in place at the beginning of next week. I hope to remove the fistula catheter within a week or so after discharge if the output remains small and convert to basic wound care without a catheter. Gastrostomy tube, of course, will remain to gravity drainage indefinitely for now. She is stable off of antibiotics. We will continue her current TPN regimen as the formula is working well and she is tolerating the cycling. Ambulate as much as possible. All questions were otherwise answered to her satisfaction, and she voiced understanding. Her oral analgesia is working well for her currently and I would plan to send her home on the sublingual morphine and fentanyl patch as currently prescribed. Orders were written.
--- NOTE | 2018-07-07 14:20 | CM.DPC ---
DCP Cont: MD confirmed pt's TPN will remain the same for discharge and [facility] received our notes for pt's formula yesterday and F2F has been signed although no PCP listed. DAVI updated MD on [facility] RN to see pt on Monday and [facility] following for TPN. SW met bedside with pt and updated on HH and [facility] at discharge and pt appreciative and states she is ready to be home and confirms that she has transportation once she is finally discharged from the hospital. SW inquired about her PCP and pt states that she was in the process of getting established with PCP and was wanting to establish with Kavita Cazares. SW unsure if pt's current lack of PCP will be a barrier to HH but will follow with [facility] and possibly pt's preferred clinic prior to d/c. SW left [facility] for [facility]. Plan: SW to follow closely for likely pt d/c in the next 1-2 days with [facility] RN to see pt in the home on Monday and [facility] to work with pt on her TPN. SW to follow for helping pt to establish with PCP for discharge follow up. Margaret Krishnan, ELECTRIC DOLLY OPERATOR
--- NOTE | 2018-07-07 16:27 | PC.NURSE ---
Addendum entered by Meghana Resendiz R.N. 07/07/18 21:46: Relatively uneventful evening. TPN & lipids infusing as per orders. Dsg to abd changed per protocol. Incision red, appears to be healing well. Gasto. tube and fistula tube intact/patent. Med @ 2020 w/ MS w/fair relief. Call light w/in reach, bed alarm on for pt safety. Original Note: Pt awake, watching TV. Lungs clear, SpO2 96% RA. Med at this time w/ MS elixir as per orders. G-tube and fistula tube intact/patent. PASCALE PICC intact/ patent. Call light w/in reach.
[2018-07-07] MEDS: ENOXAPARIN 40 MG/0.4 ML SYRINGE SUBCUT (17:26)
[2018-07-07] MEDS: FAT EMULSIONS 50 GM/250 ML EMULSION IV (17:26)
[2018-07-07] MEDS: [UNRECOGNIZED DRUG - OTHER] IV (17:27)
[2018-07-07] MEDS: LYTES IV (17:27)
[2018-07-07] MEDS: DEXT IV (17:27)
[2018-07-07] MEDS: POTASSIUM CHLORIDE IV (17:27)
[2018-07-07] MEDS: CALCIUM IV (17:27)
[2018-07-08] VITALS (9 sets, daily range): BP systolic 112–135; BP diastolic 66–78; PULSE 67–76; RESP 16–20; TEMP 36.2–36.8; O2SAT 95–97
[2018-07-08] MEDS: MORPHINE 10 MG/0.5 ML ORAL SYRINGE PO ×6 (00:16→20:47)
--- NOTE | 2018-07-08 09:30 | PC.NURSE ---
Pt states that she is feeling better today. Dressing to lower mid incision changed and inner open incision beefy red with only bloody drainage to 4x4. We are using wet to dry 4x4's, covering area with telfa and then abdominal pad. Gastrostomy tube is putting out bile colored drainage. We are clamping pts tube off when we giving her po medications for an hour. TPN ended at 1030 with last hour infusing at 41cc/hr. Pt up to void x1 and she is resting now.
[2018-07-08] MEDS: CITALOPRAM 20 MG TABLET PO (10:51)
[2018-07-08] MEDS: LISINOPRIL 10 MG TABLET PO (10:51)
[2018-07-08] MEDS: SODIUM CHLORIDE 0.9% FLUSH 10 ML IV ×2 (10:52→21:38)
--- NOTE | 2018-07-08 11:02 | P.PN_ITS ---
Subjective Date Patient Seen: 07/08/18 Time Patient Seen: 08:09 Interval history: Patient rested well. Denies nausea or vomiting. No abdominal pain this morning. Denies chest pain or shortness of breath. No fever or chills subjectively. Exam Vital Signs (past 8 hours): - 07/08/18 05:35 07/08/18 08:00 Temperature 97.9 F 97.8 F Pulse Rate 75 76 Respiratory Rate 20 16 Blood Pressure 117/69 112/66 Pulse Oximetry 96 95 Oxygen Delivery Method Room Air Oxygen Flow Rate 0 Narrative Exam Narrative: Patient lying comfortably in bed in no acute distress. Alert oriented x3 No fevers or tachycardia. Blood pressure is stable. She has good urine output Gastrostomy tube is still collecting approximately 1 L of fluid per day but some of this is the oral liquid she is ingesting. Nevertheless the fluid appears bilious. Fistula output is essentially 0 even to suction. Abdomen is soft, nondistended, and minimally tender. No guarding or rebound. Dressing is clean, dry, and intact. I did not change the dressing today as it had been done per nursing staff. Objective Labs Result Diagrams: 07/06/18 05:54 07/06/18 05:54 Labs: No new laboratory, radiographic, or culture data available today. Assessment & Plan Plan: Assessment/Plan Narrative: 53-year-old female with low output enterocutaneous fistula after recent laparotomy complicated by ongoing partial small-bowel obstruction well controlled by gastrostomy tube who remains without evidence of sepsis or ongoing significant infection at this time. Her nutritional status is stable on TPN. She has been off of antibiotics for multiple days now without any issues. I will repeat her CBC and complete metabolic panel tomorrow in anticipation of her discharge home with home nursing. Continue twice daily wet- to-dry saline dressing changes. Continue the fistula catheter to suction although I anticipate that when I see her in the office within the week after discharge we will be able to remove the catheter and revert to a simple dressing in conjunction with the wound care nurse. Gastrostomy tube will remain to gravity drainage indefinitely for now. She will continue her oral intake limitations at 500 cc per shift. She may ambulate aggressively today which I encouraged her to do throughout the afternoon. All questions were otherwise answered to her satisfaction. Orders were written. Anticipate discharge tomorrow as planned.
[2018-07-08] MEDS: LORazepam 1 MG TABLET PO ×2 (16:25→22:56)
[2018-07-08] MEDS: ENOXAPARIN 40 MG/0.4 ML SYRINGE SUBCUT (17:47)
[2018-07-08] MEDS: LYTES IV (17:49)
[2018-07-08] MEDS: DEXT IV (17:49)
[2018-07-08] MEDS: POTASSIUM CHLORIDE IV (17:49)
[2018-07-08] MEDS: CALCIUM IV (17:49)
[2018-07-08] MEDS: [UNRECOGNIZED DRUG - OTHER] IV (17:49)
[2018-07-09 00:20] VITALS: O2SAT 93
[2018-07-09] MEDS: MORPHINE 10 MG/0.5 ML ORAL SYRINGE PO ×3 (05:06→12:21)
[2018-07-09 05:10] VITALS: BP 109/62; PULSE 68; RESP 20; TEMP 36.6; O2SAT 97
[2018-07-09 05:37] LABS: Add Manual Diff / Slide Review NO; Basophils Absolute Auto 100 /uL (0-100); Basophils Percent Auto 1.4 % (0-2); Eosinophils Absolute Auto 300 /uL (0-450); Eosinophils Percent Auto 5.9 % (2-4); Hematocrit 31.2 % (36-46); Hemoglobin 10.5 g/dL (12.0-16.0); Lymphocytes Absolute Auto 1800 /uL (1100-4500); Mean Corpuscular HGB Conc 33.5 % (30-36); Mean Corpuscular Hemoglobin 27.5 PG (26-34); Mean Corpuscular Volume 81.9 fL (80-100); Monocytes Absolute Auto 500 /uL (0-900); Monocytes Percent Auto 10.9 % (3-14); Neutrophils Absolute Auto 2200 /uL (1500-7000); Neutrophils Percent Auto 45.8 % (50-75); Platelet Count 307 X10^3/uL (150-400); Red Blood Cell Count 3.81 X10^6/uL (4.0-5.2); White Blood Cell Count 4.9 X10^3/uL (4.5-11.0)
[2018-07-09 05:53] LABS: Alanine Aminotransferase 20 IU/L (9-52); Albumin Globulin Ratio 0.8 (1.0-2.8); Alkaline Phosphatase 71 U/L (38-126); Aspartate Aminotransferase 23 IU/L (14-36); BUN Creatinine Ratio 22.5 (6-22); Bilirubin Total 0.3 mg/dL (0.2-1.3); Blood Urea Nitrogen 18 mg/dL (7-17); Calcium 9.1 mg/dL (8.4-10.2); Carbon Dioxide 32 mmol/L (22-32); Chloride 98 mmol/L (98-107); Estimated Glomerular Filt Rate > 60.0 mL/min (>60); Globulin 3.7 g/dL (1.7-4.1); Glucose 109 mg/dL (70-100); HEMOLYSIS < 15 (0-50); Magnesium 1.9 mg/dL (1.6-2.3); Potassium 4.2 mmol/L (3.4-5.1); Sodium 138 mmol/L (137-145); Total Protein 6.7 g/dL (6.3-8.2)
[2018-07-09 08:47] VITALS: BP 127/77; PULSE 69; RESP 16; TEMP 36.6; O2SAT 97
[2018-07-09 08:55] VITALS: O2SAT 97
[2018-07-09] MEDS: LISINOPRIL 10 MG TABLET PO (09:04)
[2018-07-09] MEDS: SODIUM CHLORIDE 0.9% FLUSH 10 ML IV (09:04)
[2018-07-09] MEDS: CITALOPRAM 20 MG TABLET PO (09:04)
--- NOTE | 2018-07-09 11:12 | PM.DS.1 ---
History of Present Illness Date Patient Seen: 07/09/18 Time Patient Seen: 11:13 Chief complaint: abd pain Narrative: 53-year-old female well known to me from exploratory laparotomy with extensive lysis of adhesions for bowel obstruction approximately 6 weeks ago now who presents yet again to the emergency department this evening with a 24 hr history of progressive diffuse abdominal pain, distention, and nausea. She has not vomited. She moved her bowels 2 days ago which she describes as diarrhea. She has not moved her bowels today. No melena, hematochezia, bright red blood per rectum. Appetite has been severely diminished over the last 48 hr. She is tolerating only a few bites of food here where there but cannot ingest any more due to nausea and crampy abdominal pain. Unfortunately this represents approximately the 4th or 5th time she has been back to the hospital since discharge from her original operation. She also had hospital stay in [place], [place] at [facility] for what appeared to be a recurrent partial small-bowel obstruction as well. Interestingly, her symptoms resolve after several days in the hospital with each episode but then occur again shortly thereafter. No fever or chills. No dysuria or hematuria. No chest pain or shortness of breath. Discharge Providers Date of admission: 06/08/18 20:16 Consults: 06/14/18 08:45 Consult to Physical Therapy Evaluate & Treat Comment: Physician Instructions: Evaluate and Treat 06/21/18 09:22 Consult to Wound Care Routine Comment: enterocutaneous fistula Consulting Provider: [facility] 07/06/18 11:13 Consult to PICC Line RN Routine Comment: relocate line to right arm if possible 06/09/18 11:30 Consult to PICC Line RN Routine Comment: Discharge provider: Tate Levy MD Discharge Date: 07/09/18 Summary Discharge Diagnosis: Depression Recurrent high-grade small-bowel obstruction due to adhesions Re-exploration laparotomy with lysis of adhesions on June 13, 2018 Placement of Mago gastrostomy tube June 13, 2018 Incomplete resolution of partial small bowel obstruction following laparotomy June 13, 2018 Enterocutaneous fistula following laparotomy on June 13, 2018, subsequently controlled Superficial wound infection status post laparotomy growing enterococcus and Bacteroides species Moderate protein calorie malnutrition, improving with TPN Anxiety disorder (Acute) Morbid obesity with BMI of 45.0-49.9, adult (Acute) Small bowel obstruction due to adhesions (Acute) HTN (hypertension) (Chronic) Migraine (Chronic) Postoperative ileus (Resolved) Status post exploratory laparotomy (Acute) Status post appendectomy (Resolved) Status post hysterectomy (Resolved) Hospital Course: 53-year-old female who was admitted on June 08, 2018 with evidence of recurrent small-bowel obstruction. She had actually been readmitted at least 4 or 5 times to this institution and another institution for recurrent nausea, vomiting, abdominal pain, distention, and findings consistent with small-bowel obstruction following a laparotomy approximately March 2018 for significant bowel obstruction at that time. She had significant adhesions which were completely lysed complicated by prolonged postoperative ileus that subsequently resolved. Nevertheless, she continued to return to the emergency department and the outpatient clinic with the above symptoms. Following admission on June 08, 2018 she was treated with nasogastric tube decompression, bowel rest, and IV fluid resuscitation. She was also begun once again on TPN. Small-bowel follow-through continue to show evidence of bowel obstruction as did admission imaging. Despite the above measures she remains symptomatic and had high nasogastric tube output that was completely bilious in nature. She remained tender to palpation on examination. Because of her inability to resolve the bowel obstruction after multiple admissions it was decided to return to the operating room for laparotomy. Unfortunately, she had an extremely hostile abdomen and the bowel obstruction could not be completely relieved due to significant adhesions and inflammation. Gastrostomy tube was inserted at that time. Within several days after surgery the gastrostomy tube was draining nicely in the nasogastric tube was discontinued. She had significant issues with pain control, anxiety, and progressive depression. We eventually were able to control her pain with CONSULTANT and supplemental narcotic pain medications. She began to have low-grade fevers and evidence of erythema at the wound. Nikki were removed and she had evidence of wound infection, and cultures showed the above species. She was begun on broad-spectrum antibiotics with good results. However, she also had evidence of enterocutaneous fistula at the time that the wound was opened and irrigated. With the assistance of the wound care team we were able to control the fistula with a catheter placed to suction as well as dressings. She was placed on bowel rest and the gastrostomy tube was left to gravity drainage. TPN was continued. We were eventually able to find a stable formula and she has normal electrolytes and renal function at time of discharge. She is also being cycled on the TPN with 8 hr a day off so that she can be ambulatory without the IV. She has had PICC lines placed including 1 several days before discharge so that it may be used long-term. We limited her oral intake to 500 mL per 8 hr shift in order to diminish fistula output as well as control nausea and vomiting. Most of the oral intake is now being drained per gravity through the gastrostomy tube. She does have ongoing evidence radiographically and clinically of partial small bowel obstruction. She is having a small amount of flatus but no stool per rectum. Regardless the midline open wound shows no evidence of infection at the time of discharge while she has been off of antibiotics for nearly 1 week prior to discharge. She is receiving wet-to-dry dressing changes and is showing excellent granulation and secondary closure of the wound. Her exam shows her to be nondistended and minimally tender at the open wound. Gastrostomy tube site is healing nicely. There is bilious output in the gravity bag however. Eventually she was converted to fentanyl patch and sublingual oral morphine for pain control which worked well. Ativan is controlling her anxiety. She is ambulating with the assistance of physical therapy and is now mostly independent in that regard. Now that the fistula is well controlled and showing evidence of closure along with control of the partial small-bowel obstruction and no evidence of residual wound infection she is stable for discharge. Of note, she also had a CT scan approximately 1 week prior to discharge showed no evidence of any free air or intra-abdominal abscess. She will be discharged home on TPN as per current formula via the existing PICC line. Home Health has also been instituted to provide wound care and fistula suction. She will follow up in the surgery office in 3 days then weekly thereafter. She understands to call or return sooner, however, if she has any issues with fever or chills, recurrent nausea or vomiting, progressive abdominal pain, or any other concerns with the incisions. All questions were answered satisfaction, and she voiced understanding. Status at Discharge Cognitive/behavioral status at discharge: Alert, oriented x3 Functional status at discharge: independent ambulation Overall status at discharge: patient is progressing back to baseline Time Spent with Patient Greater than 30 minutes Exam Vital Signs (past 8 hours): - 07/09/18 05:10 07/09/18 08:47 07/09/18 08:55 Temperature 97.8 F 97.8 F Pulse Rate 68 69 Respiratory Rate 20 16 Blood Pressure 109/62 127/77 Pulse Oximetry 97 97 97 Oxygen Delivery Method Room Air Oxygen Flow Rate 0 Narrative Exam Narrative: Well-nourished well-developed moderately obese female in no acute distress lying comfortably in bed. Family is at the bedside. Alert oriented x3. She is in good spirits today in anticipation of being discharged home. Remains afebrile with maximal temperature 97.8?. No tachycardia. Blood pressure is normal. Good urine output Fistula output remains essentially minimal with far less 100 cc per day Gastrostomy tube has some bilious output but the site is clean, dry, and intact Midline wound is clean and granulating nicely. Catheter remains in good position. Skin is completely viable without erythema. She is minimally tender to palpation near the wound but certainly without guarding or rebound. Abdomen is essentially nondistended. Extremities show no clubbing, cyanosis, or edema Objective Labs Result Diagrams: 07/09/18 05:13 07/09/18 05:13 Labs: Laboratory Results - last 24 hr 07/09/18 07/09/18 05:13 05:13 WBC 4.9 RBC 3.81 L Hgb 10.5 L Hct 31.2 L MCV 81.9 MCH 27.5 MCHC 33.5 RDW 18.0 H Plt Count 307 Neut % (Auto) 45.8 L Lymph % (Auto) 36.0 Fajardo % (Auto) 10.9 Eos % (Auto) 5.9 H Baso % (Auto) 1.4 Neut # (Auto) 2200 Lymph # (Auto) 1800 Fajardo # (Auto) 500 Eos # (Auto) 300 Baso # (Auto) 100 Sodium 138 Potassium 4.2 Chloride 98 Carbon Dioxide 32 BUN 18 H Creatinine 0.80 Estimated GFR > 60.0 BUN/Creatinine Ratio 22.5 H Glucose 109 H Calcium 9.1 Magnesium 1.9 Total Bilirubin 0.3 AST 23 ALT 20 Alkaline Phosphatase 71 Total Protein 6.7 Albumin 3.0 L Globulin 3.7 Albumin/Globulin Ratio 0.8 L Discharge Plan Discharge Plan Patient Disposition: Home Health Service [facility] to: [facility] Discharge comment: [facility] will manage daily TPN per formula and cycling infusion rates per [facility] pharmacy provided on the chart as part of the discharge instructions/orders [facility] services will provide daily wound care along with the patient's family, gastrostomy tube management, and fistula catheter management including suction Discharge Med Rec/Prescriptions Prescriptions: New acetaminophen 325 mg Tablet 650 mg PO Q6HR PRN (Reason: As Needed For Fever/Mild Pain) Qty: 60 RF: 1 citalopram 20 mg Tablet 20 mg PO DAILY Qty: 30 RF: 1 lisinopril 10 mg Tablet 10 mg PO DAILY Qty: 30 RF: 1 lorazepam 1 mg Tablet 1 mg PO Q4HR PRN (Reason: Anxiety) Qty: 30 RF: 1 ondansetron 4 mg Tablet,Disintegrating 4 mg Sublingual Q4HR PRN (Reason: Nausea) Qty: 30 RF: 0 Continue lisinopril 10 mg Tablet 10 mg PO DAILY RF: 0 sennosides [Senokot] 8.6 mg tablet 8.6 mg PO BEDTIME Qty: 10 RF: 1 docusate sodium [Colace] 100 mg capsule 100 mg PO BID Qty: 14 RF: 1 pantoprazole [Protonix] 40 mg tablet,delayed release (DR/EC) 40 mg PO DAILY Qty: 30 RF: 0 Discontinued ibuprofen 800 mg tablet 800 mg PO QID PRN (Reason: pain) Qty: 60 RF: 0 ondansetron HCl [Zofran] 4 mg tablet 4 mg PO Q6-8H PRN (Reason: nausea and vomiting) Qty: 14 RF: 0 Follow up/Referrals: Tate Levy MD [Physician] - 07/12/18 4:00 pm Provider Discharge Instructions Diet: Clear Liquid Diet comment: Do not exceed more than 500 mL of oral liquid intake every 8 hr. Activity: No lifting more than 12 lb No driving May walk as much as desired May climb stairs Other treatments: Gastrostomy tube located in the left upper side of your abdomen will remain to gravity bag drainage until further notice. However, clamp the gastrostomy tube for 1 hr after oral medications then returned to gravity bag drainage as before. May clamp the gastrostomy tube for no more than 1 hr if traveling to appointments. Return to gravity drain afterwards. Fistula catheter within the open wound is to be placed on low continuous suction with home suction device. However, catheter may be disconnected from suction and clamped with drain plug while ambulating or showering. Skin/Wound/Dressing Care Report to your healthcare provider any signs of infection, such as:: chills, fever, night sweats, increased pain, unusual drainage and unusual redness Dressing: At least once daily if not twice daily wet-to-dry saline 4 x 4 gauze packing into the midline open wound below the fistula catheter then cover with dry ABD pad and minimal paper tape. Leave skin barrier adjacent to the wound in place. No dressing needed around gastrostomy tube site in the left upper abdomen Other wound treatment: May shower Do not soak incision in bathtub or pool or hot tub until further notice Visit Report/Discharge Packet Visit Report Forms: Stroke Signs & Symptoms Discharge Data Attending Provider: Tate Levy Admit Date/Time: 06/08/18 20:16
--- NOTE | 2018-07-09 15:32 | CM.DPC ---
DCP/continued: Reviewed chart. Spoke with Dr. Levy this AM. Patient medically stable for discharge home today on TPN through [facility] and HH through [facility]. HAIR MIXER met with patient to confirm the above plan. Patient alert, oriented and aware and agreeable. Patient will be scheduled to see Dr. Levy as outpatient on 07-12-18. HAIR MIXER placed call to [facility] and confirmed that they did get updated TPN orders from pharmacy today. In addition, placed call to [facility], spoke with Lillie she confirms that they can see patient in the residence tomorrow. Asked PRINCESS/Liliya to fax d/c summary, F2F, and orders to [facility] . No additional needs identified at this time. Provided patient with [facility] brochure and [facility]. Patient reports that she currently does not have PCP. Provided her with PCP list and encouraged her to call [facility] to find out which providers are contracted. Patient agreeable. Patient provided with insurance information because she did not have information with her. P: Home today on TPN provided by [facility] and HH provided by [facility]. BRENDAN Lan
--- NOTE | 2018-07-09 15:33 | PC.NURSE ---
Discharge Pt stated morphine kept pain controlled. Did not have fentanyl patch in place, MD notified and ok to apply one at home when she gets d/c Rx filled. gastrostomy tube plugged and bag given to pt to go home, wound in incision with drain was plugged and dressing changed this AM. pt left with all her belongings. PICC in place at d/c as pt is to receive TPN at home. HH to come to pt's house tomorrow, MD aware that drain will not be to suction until tomorrow. D.c instructions provided to pt. aware of f/u apt with MD. Also aware to contact MD with any additional questions or concerns. pt left in w/c with friend and RN escort to private vehicle.
== END 2018-07-09 14:40 | disposition home health service (06) | DRG 222 ==
LOC: ED 20:13 → AC 20:17 → ICU 06-09 08:06 → AC 06-12 14:47 → ICU 06-13 14:23 → AC 06-18 10:45 → ICU 05-28 07:49 → AC 05-28 07:50
PROVIDERS: Anesthesiology; Specialist; Surgery; Admitting Provider Surgery; Emergency Provider Nurse Practitioner Family; Visit Provider Surgery
PROC: 0DN80ZZ Release Small Intestine, Open Approach (ICD-10-PCS; CPT 49000; principal; 2018-06-13 13:15)
DX: K56.50 Intestinal adhesions [bands], unspecified as to partial versus complete obstruction (principal); E66.01 Morbid (severe) obesity due to excess calories; Z68.41 Body mass index [BMI] 40.0-44.9, adult; K63.2 Fistula of intestine; T81.49XA Infection following a procedure, other surgical site, initial encounter; E43 Unspecified severe protein-calorie malnutrition; F41.9 Anxiety disorder, unspecified; I10 Essential (primary) hypertension; Z87.891 Personal history of nicotine dependence; K91.71 Accidental puncture and laceration of a digestive system organ or structure during a digestive system procedure; F32.9 Major depressive disorder, single episode, unspecified; B95.2 Enterococcus as the cause of diseases classified elsewhere
CPT/HCPCS: 36415; 36573; 36591; 36592; 71045; 74019; 74021; 74160; 80048; 80053; 80170; 80202; 82565; 82962; 83605; 83690; 83735; 84100; 85014; 85018; 85025; 86850; 86900; 86901; 87040; 87070; 87075; 87077; 87186; 87205; 87797; 94760; 96361; 96374; 96375; 96376; 97110; 97116; 97163; 97530; 99283; 99284; 99406; B4189; C9113; J0330; J1100; J1170; J1450; J1642; J1650; J1885; J1956; J2060; J2250; J2405; J2704; J3010; J3370; J3475; J3480; Q9967

== ENCOUNTER → 2018-07-18 14:11 | Outpatient (CLI) | payer OTHER, MEDICAID, SELFPAY ==
[2018-07-12 16:23] VITALS: BMI 43.0
[2018-07-18 14:54] LABS: Add Manual Diff / Slide Review NO; Basophils Absolute Auto 100 /uL (0-100); Basophils Percent Auto 1.3 % (0-2); Eosinophils Absolute Auto 300 /uL (0-450); Eosinophils Percent Auto 4.6 % (2-4); Hematocrit 34.2 % (36-46); Hemoglobin 11.4 g/dL (12.0-16.0); Lymphocytes Absolute Auto 1900 /uL (1100-4500); Lymphocytes Percent Auto 32.7 % (25-40); Mean Corpuscular HGB Conc 33.3 % (30-36); Mean Corpuscular Hemoglobin 27.8 PG (26-34); Mean Corpuscular Volume 83.4 fL (80-100); Monocytes Absolute Auto 500 /uL (0-900); Neutrophils Absolute Auto 3000 /uL (1500-7000); Neutrophils Percent Auto 52.4 % (50-75); Platelet Count 234 X10^3/uL (150-400); Red Cell Distribution Width 19.2 % (11.6-14.8); White Blood Cell Count 5.7 X10^3/uL (4.5-11.0)
[2018-07-18 15:16] LABS: Alanine Aminotransferase 35 IU/L (9-52); Albumin 3.7 g/dL (3.5-5.0); Albumin Globulin Ratio 0.9 (1.0-2.8); Alkaline Phosphatase 91 U/L (38-126); Aspartate Aminotransferase 39 IU/L (14-36); Bilirubin Total 0.5 mg/dL (0.2-1.3); Blood Urea Nitrogen 23 mg/dL (7-17); Calcium 9.6 mg/dL (8.4-10.2); Carbon Dioxide 27 mmol/L (22-32); Chloride 97 mmol/L (98-107); Estimated Glomerular Filt Rate 58.5 mL/min (>60); Globulin 3.9 g/dL (1.7-4.1); Glucose 106 mg/dL (70-100); HEMOLYSIS < 15 (0-50); Magnesium 1.6 mg/dL (1.6-2.3); Phosphorous 4.9 mg/dL (2.5-4.5); Potassium 4.1 mmol/L (3.4-5.1); Sodium 134 mmol/L (137-145); Total Protein 7.6 g/dL (6.3-8.2)
== END ==
PROVIDERS: Visit Provider Surgery
DX: K56.609 Unspecified intestinal obstruction, unspecified as to partial versus complete obstruction (principal)
CPT/HCPCS: 36415; 80053; 83735; 84100; 85025

== ENCOUNTER 2018-07-22 15:27 | Emergency (ER) | payer OTHER, MEDICAID, SELFPAY ==
[2018-07-12 16:23] VITALS: BMI 43.0
[2018-07-22 15:38] VITALS: BP 161/83; PULSE 114; RESP 24; O2SAT 99
[2018-07-22 15:55] LABS: Add Manual Diff / Slide Review NO; Basophils Absolute Auto 100 /uL (0-100); Eosinophils Absolute Auto 0 /uL (0-450); Eosinophils Percent Auto 0.1 % (2-4); Hematocrit 35.8 % (36-46); Hemoglobin 11.8 g/dL (12.0-16.0); Lymphocytes Absolute Auto 2200 /uL (1100-4500); Lymphocytes Percent Auto 21.3 % (25-40); Mean Corpuscular Hemoglobin 27.2 PG (26-34); Mean Corpuscular Volume 82.4 fL (80-100); Monocytes Absolute Auto 400 /uL (0-900); Monocytes Percent Auto 3.5 % (3-14); Neutrophils Absolute Auto 7600 /uL (1500-7000); Neutrophils Percent Auto 74.1 % (50-75); Platelet Count 328 X10^3/uL (150-400); Red Blood Cell Count 4.34 X10^6/uL (4.0-5.2); Red Cell Distribution Width 18.2 % (11.6-14.8); White Blood Cell Count 10.2 X10^3/uL (4.5-11.0)
[2018-07-22] MEDS: ONDANSETRON 4 MG/2 ML INJ IV (15:56)
[2018-07-22 16:00] VITALS: BP 145/82; PULSE 105; RESP 25; O2SAT 100
--- NOTE | 2018-07-22 16:00 | DI.CT.S_ITS ---
PROCEDURE: CT ABDOMEN PELVIS W CON INDICATIONS: abdominal pain, recent abdominal surgery, dehis, peg tube TECHNIQUE: After the administration of intravenous contrast, 5 mm thick sections acquired from the diaphragm to the symphysis. 5 mm coronal and sagittal reformats were acquired. For radiation dose reduction, the following was used: automated exposure control, adjustment of mA and/or kV according to patient size. COMPARISON: [facility], CT, CT ABDOMEN W CON, 07/01/2018, 14:24. FINDINGS: Image quality: Excellent. ABDOMEN: Lung bases: Lung bases are clear. Heart size is normal. Solid organs: Liver is normal in size and enhancement. Gallbladder negative. Biliary system is non dilated. Pancreas enhances normally. Spleen is normal in size and enhancement. No adrenal nodules. Kidneys demonstrate normal size and enhancement, without hydronephrosis. Peritoneum and bowel: Incidental note of PEG tube. There multiple dilated small bowel loops filled with fluid and with scattered air-fluid levels. There is equalization of small bowel loops. The colon is relatively decompressed. Nodes and vessels: No retroperitoneal or mesenteric adenopathy by size criteria. Aorta and inferior vena cava are normal in size. Miscellaneous: Large midline ventral abdominal wall incision, as before PELVIS: Genitourinary: Bladder wall thickness is normal. Miscellaneous: No inguinal hernias or adenopathy. Bones: No suspicious bony lesions. No vertebral body compression fractures. IMPRESSION: Overall, redemonstration of dilated fluid and gas-filled central small bowel loops, slightly progressed since the prior study in keeping with persistent bowel obstruction. Exact transition point is not well-visualized. Elsewhere, no significant interval change since 07/01/18. Dictated by: Eloy Alexis M.D. on 07/22/2018 at 17:40 Approved by: Eloy Alexis M.D. on 07/22/2018 at 17:46
--- NOTE | 2018-07-22 16:03 | ED.ABDPAIN ---
HPI - Abdominal Pain General Chief Complaint: Abdominal Pain Stated Complaint: CRAMPING VOMITTING BOWL OBSTRUCTION Time Seen by Provider: 07/22/18 15:29 Source: patient and old records reviewed Mode of arrival: ambulatory Limitations: no limitations History of Present Illness HPI narrative: This is a 53-year-old female comes to the emergency department with abdominal pain. Patient has history of recurrent high-grade bowel obstruction. 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 It has been healing currently. Patient denies any fevers, states that she has had increasing abdominal pain today. Patient has been vomiting. She states she has not had a bowel movement several months. She does pass flatus regularly. This is consistent with her last surgical office visit. Patient does have drainage from the gastrostomy tube normally. She is not having any currently. Patient has not had any fevers. She denies any chest pain or shortness of breath. No back pain. No urinary symptoms. Related Data Home Medications Medication Instructions Recorded Confirmed lisinopril 10 mg PO DAILY 04/21/18 07/12/18 Previous Rx's Medication Instructions Recorded docusate sodium [Colace] 100 mg PO BID #14 cap 05/10/18 pantoprazole [Protonix] 40 mg PO DAILY #30 tab 05/10/18 sennosides [Senokot] 8.6 mg PO BEDTIME #10 tab 05/10/18 acetaminophen 650 mg PO Q6HR PRN #60 tab 07/09/18 citalopram 20 mg PO DAILY #30 tab 07/09/18 fentanyl 1 patch TRANSDERMAL Q72H #5 each 07/09/18 lisinopril 10 mg PO DAILY #30 tab 07/09/18 lorazepam 1 mg PO Q4HR PRN #30 tab 07/09/18 morphine 15 mg immediate release 15 mg PO Q4-6H PRN #40 tab 07/09/18 tablet ondansetron 4 mg SUBLINGUAL Q4HR PRN #30 tab 07/09/18 Allergies Allergy/AdvReac Type Severity Reaction Status Date / Time Penicillins Allergy Intermediate Hives Verified 06/08/18 17:15 ranitidine [From Zantac] Allergy Intermediate Hives Verified 06/08/18 17:15 Review of Systems Review of Systems ROS Unobtainable: All systems reviewed & are unremarkable except as noted in HPI and below Constitutional Denies chills, Denies fever(s), Denies lethargy and Denies weakness Cardiovascular Denies chest pain, Denies edema and Denies dyspnea Respiratory Denies chest congestion, Denies cough, Denies dyspnea and Denies wheezing Gastrointestinal Gastrointestinal: Reports abdominal pain, Denies melena, Denies hematochezia, Denies change in bowel habits, Reports constipation (no BM for months per patient, does have flatus, on tpn), Denies diarrhea, Reports nausea, Reports vomiting and Reports other (peg tube, recent surgery) Genitourinary Denies hematuria, Denies flank pain, Denies urinary incontinence and Denies urinary urgency Integumentary/Breasts Reports wounds Neurologic Denies weakness Allergic/Immunologic Denies wheezing [facility] Medical History Anxiety disorder (Acute) Morbid obesity with BMI of 45.0-49.9, adult (Acute) Small bowel obstruction due to adhesions (Acute) HTN (hypertension) (Chronic) Migraine (Chronic) Postoperative ileus (Resolved) Surgical History Status post exploratory laparotomy (Acute) Status post appendectomy (Resolved) Status post hysterectomy (Resolved) Family History Mother Hypertension Diabetes mellitus Father Cancer Social History household members: significant other and family Smoking Status: Former smoker Social History household members: significant other and family Smoking Status: Former smoker Exam Narrative Exam Narrative: GENERAL: Alert and oriented x three, obese female in severe distress. Patient is moaning but answers questions. HEENT: Head normocephalic, atraumatic, EOMI, pupils reactive, face symmetric, moist mucous membranes NECK: Supple, full range of motion CARDIOVASCULAR: Regular rate and rhythm without murmurs, rubs or gallops. RESPIRATORY: Breath sounds equal bilaterally, no wheezes rales or rhonchi. ABDOMEN: Soft, mildly tender to palpation midabdomen, peg tube in place, surrounding area appears clean, dry and intact. Nursing flushed without issue but could not pull back. Hypoactive bowel sounds all 4 quadrants. No guarding or rebound, rigidity, no mass, patient has wound dehiscence of ventral abdomen with bandages applies, pink granulation tissue centrally without any exposure of bowel. No surrounding erythema. Serosanguineous drainage. : No CVA tenderness EXTREMITIES: Normal range of motion, no clubbing or edema. Neurovascularly intact NEUROLOGICAL: Cranial nerves II through XII grossly intact. Moving all extremities SKIN: Warm, dry, no petechiae, no rashes or lesions. Initial Vital Signs Initial Vital Signs: Vital Signs Pulse Rate 114 H 07/22/18 15:38 Respiratory Rate 24 07/22/18 15:38 Blood Pressure 161/83 H 07/22/18 15:38 Pulse Oximetry 99 07/22/18 15:38 Course Orders Ordered: ED Orders 07/22/18 15:45 Complete Blood Count AUTO DIFF Stat Comprehensive Metabolic Panel Stat Lipase Stat Partial Thromboplastin Time Stat Prothrombin Time INR Stat 07/22/18 16:00 CT abdomen pelvis w con Stat 07/22/18 16:09 Lactate (Lactic Acid) Stat 07/22/18 16:20 Blood Culture Stat 07/22/18 17:05 Ictotest Urine Stat Urine Microscopic Stat 07/22/18 18:25 Lactate (Lactic Acid) Stat Discontinued Medications Hydromorphone HCl (Dilaudid) 1 mg IV NOW ONE Stop: 07/22/18 16:02 Last Admin: 07/22/18 16:11 Dose: 1 mg Hydromorphone HCl (Dilaudid) 1 mg IV NOW ONE Stop: 07/22/18 16:50 Last Admin: 07/22/18 16:53 Dose: 1 mg Sodium Chloride (Normal Saline 0.9%) 1,000 mls @ 1,000 mls/hr IV BOLUS ONE Stop: 07/22/18 17:00 Last Infusion: 07/22/18 17:32 Dose: 0 mls/hr Admin: 07/22/18 16:12 Dose: 1,000 mls/hr Sodium Chloride (Normal Saline 0.9%) 1,000 mls @ 1,000 mls/hr IV BOLUS ONE Stop: 07/22/18 18:31 Last Admin: 07/22/18 17:33 Dose: 1,000 mls/hr Metoclopramide HCl (Reglan) 5 mg PO NOW ONE Stop: 07/22/18 18:53 Ondansetron HCl (Zofran) 4 mg IV NOW ONE Stop: 07/22/18 15:34 Last Admin: 07/22/18 15:56 Dose: 4 mg Vital Signs - 8 hr 07/22/18 15:38 07/22/18 16:00 07/22/18 17:00 Pulse Rate 114 H 105 H 106 H Respiratory Rate 24 25 H 15 Blood Pressure 161/83 H Blood Pressure [Left Arm] 145/82 H 91/50 L Pulse Oximetry 99 100 96 07/22/18 17:44 07/22/18 18:00 Pulse Rate 98 H 104 H Respiratory Rate 16 8 L Blood Pressure Blood Pressure [Left Arm] 113/64 105/63 Pulse Oximetry 95 97 MDM - Abdominal Pain Lab Data Attestation: I reviewed the patient's lab results. Result diagrams: 07/22/18 15:45 07/22/18 15:45 Lab Results 07/22/18 07/22/18 07/22/18 Range/Units 15:45 15:45 15:45 WBC 10.2 (4.5-11.0) X10^3/uL RBC 4.34 (4.0-5.2) X10^6/uL Hgb 11.8 L (12.0-16.0) g/dL Hct 35.8 L (36-46) % MCV 82.4 (80-100) fL MCH 27.2 (26-34) PG MCHC 33.0 (30-36) % RDW 18.2 H (11.6-14.8) % Plt Count 328 (150-400) X10^3/uL Neut % (Auto) 74.1 (50-75) % Lymph % (Auto) 21.3 L (25-40) % Sherman % (Auto) 3.5 (3-14) % Eos % (Auto) 0.1 L (2-4) % Baso % (Auto) 1.0 (0-2) % Neut # (Auto) 7600 H (0120-2054) /uL Lymph # (Auto) 2200 (1686-2189) /uL Sherman # (Auto) 400 (0-900) /uL Eos # (Auto) 0 (0-450) /uL Baso # (Auto) 100 (0-100) /uL PT 13.8 H (10.1-12.7) SECONDS INR 1.2 (0.9-1.3) APTT 30 (26.4-36.2) SECONDS Sodium 136 L (137-145) mmol/L Potassium 3.9 (3.4-5.1) mmol/L Chloride 99 (98-107) mmol/L Carbon Dioxide 22 (22-32) mmol/L BUN 29 H (7-17) mg/dL Creatinine 0.70 (0.52-1.04) mg/dL Estimated GFR > 60.0 (>60) mL/min BUN/Creatinine Ratio 41.4 H (6-22) Glucose 195 H (70-100) mg/dL Lactate (0.7-2.1) mmol/L Calcium 9.6 (8.4-10.2) mg/dL Total Bilirubin 0.3 (0.2-1.3) mg/dL AST 24 (14-36) IU/L ALT 28 (9-52) IU/L Alkaline Phosphatase 96 (38-126) U/L Total Protein 7.7 (6.3-8.2) g/dL Albumin 3.8 (3.5-5.0) g/dL Globulin 3.9 (1.7-4.1) g/dL Albumin/Globulin Ratio 1.0 (1.0-2.8) Lipase 92 (23-300) U/L Urine Ictotest (Negative) Urine RBC (0-5/HPF) Urine WBC (0-5/HPF) Ur Squamous Epith Cells Urine Bacteria (None) Hyaline Casts (None) Urine Mucus (Negative) Ur Culture Indicated? 07/22/18 07/22/18 07/22/18 Range/Units 16:09 17:05 18:25 WBC (4.5-11.0) X10^3/uL RBC (4.0-5.2) X10^6/uL Hgb (12.0-16.0) g/dL Hct (36-46) % MCV (80-100) fL MCH (26-34) PG MCHC (30-36) % RDW (11.6-14.8) % Plt Count (150-400) X10^3/uL Neut % (Auto) (50-75) % Lymph % (Auto) (25-40) % Sherman % (Auto) (3-14) % Eos % (Auto) (2-4) % Baso % (Auto) (0-2) % Neut # (Auto) (3951-6097) /uL Lymph # (Auto) (0875-7109) /uL Sherman # (Auto) (0-900) /uL Eos # (Auto) (0-450) /uL Baso # (Auto) (0-100) /uL PT (10.1-12.7) SECONDS INR (0.9-1.3) APTT (26.4-36.2) SECONDS Sodium (137-145) mmol/L Potassium (3.4-5.1) mmol/L Chloride (98-107) mmol/L Carbon Dioxide (22-32) mmol/L BUN (7-17) mg/dL Creatinine (0.52-1.04) mg/dL Estimated GFR (>60) mL/min BUN/Creatinine Ratio (6-22) Glucose (70-100) mg/dL Lactate 3.0 H 1.6 (0.7-2.1) mmol/L Calcium (8.4-10.2) mg/dL Total Bilirubin (0.2-1.3) mg/dL AST (14-36) IU/L ALT (9-52) IU/L Alkaline Phosphatase (38-126) U/L Total Protein (6.3-8.2) g/dL Albumin (3.5-5.0) g/dL Globulin (1.7-4.1) g/dL Albumin/Globulin Ratio (1.0-2.8) Lipase (23-300) U/L Urine Ictotest Negative (Negative) Urine RBC None seen (0-5/HPF) Urine WBC 1-5/hpf (0-5/HPF) Ur Squamous Epith Cells 5-10 /hpf H Urine Bacteria Moderate (10-30) H (None) Hyaline Casts 1-5/lpf (None) Urine Mucus 1+ H (Negative) Ur Culture Indicated? Cult not indicated Point of care testing: Urine Dip Bedside Urine Glucose Negative Bedside Urine Bilirubin + 1 Bedside Urine Ketone + 15 Urine Specific [place] 1.020 Bedside Urine Occult Blood - Negative Bedside Urine pH 6.0 Bedside Urine Protein +/- 15 Bedside Urine Urobilinogen +/- 1mg Bedside Urine Nitrite - Negative Bedside Urine Leukocytes - Negative Esterase Imaging Data CT abd/pelvis: Radiologist's impression: [address] [address] [address] Scan Report Signed Patient: Carol Reyes LMR#: [id number] : 1965Acct:[id number] Age/Sex: 53 / FDate of Service: 07/22/18 Loc: ED Accession Number: [id number] Procedure: CT abdomen pelvis w con Ordering Provider: Veronique Puente D.O. PROCEDURE: CT ABDOMEN PELVIS W CON INDICATIONS: abdominal pain, recent abdominal surgery, dehis, peg tube TECHNIQUE: After the administration of intravenous contrast, 5 mm thick sections acquired from the diaphragm to the symphysis. 5 mm coronal and sagittal reformats were acquired. For radiation dose reduction, the following was used: automated exposure control, adjustment of mA and/or kV according to patient size. COMPARISON: [facility], CT, CT ABDOMEN W CON, 07/01/2018, 14:24. FINDINGS: Image quality: Excellent. ABDOMEN: Lung bases: Lung bases are clear. Heart size is normal. Solid organs: Liver is normal in size and enhancement. Gallbladder negative. Biliary system is non dilated. Pancreas enhances normally. Spleen is normal in size and enhancement. No adrenal nodules. Kidneys demonstrate normal size and enhancement, without hydronephrosis. Peritoneum and bowel: Incidental note of PEG tube. There multiple dilated small bowel loops filled with fluid and with scattered air-fluid levels. There is equalization of small bowel loops. The colon is relatively decompressed. Nodes and vessels: No retroperitoneal or mesenteric adenopathy by size criteria. Aorta and inferior vena cava are normal in size. Miscellaneous: Large midline ventral abdominal wall incision, as before PELVIS: Genitourinary: Bladder wall thickness is normal. Miscellaneous: No inguinal hernias or adenopathy. Bones: No suspicious bony lesions. No vertebral body compression fractures. IMPRESSION: Overall, redemonstration of dilated fluid and gas-filled central small bowel loops, slightly progressed since the prior study in keeping with persistent bowel obstruction. Exact transition point is not well-visualized. Elsewhere, no significant interval change since 07/01/18. Dictated by: Eloy Alexis M.D. on 07/22/2018 at 17:40 Approved by: Eloy Alexis M.D. on 07/22/2018 at 17:46 [facility] Narrative Medical decision making narrative: 53-year-old female with complicated abdominal surgical history. Patient has had rapid increasing pain in her abdomen recently and has not had much drainage from a gastrotomy tube. Plan for CT of abdomen pelvis, lab work and consultation with surgery. Concern for recurrent bowel obstruction, complication with gastrotomy. Labs are normal other than elevated lactate at 3, CT shows Dr. Cantu consulted, discussed that patient lactate is elevated at 3 but labs are otherwise not elevated. CT shows demonstration of dilated fluid gas-filled central small bowel loops which is slightly progressed since prior study with persistent consistent with persistent bowel obstruction. Patient has hysterotomy 2. It has been draining not as much as it normally does but still continuing. Patient's emesis has stopped after Zofran and her pain is controlled here in the ER after 2 doses of Dilaudid. Plan is to repeat lactate if it is improving after 2 L of fluid plan is for patient to follow up tomorrow, with Dr. Levy. Patient states she has an appointment on Monday but is happy to call tomorrow morning. She would prefer to return home and not be admitted to the hospital. We did discuss that she has had Reglan in the past that that might be helpful so we may give her a dose for home. She has Zofran at home. While awaiting lactate patient's gastrostomy tube started draining more fluid than it had before but appears same in consistency and color. Patient states it did feel as if it gave some relief. She is more comfortable at this time. Discharge Plan Departure Patient Disposition: Home Clinical Impression: Abdominal pain, Vomiting Activity Restrictions/Additional Instructions: Call Dr. Levy's office tomorrow for recheck. They may wish to move your appointment to earlier in the week. Continue fluids and TPN as prescribed. Continue home medications as prescribed, continue zofran as needed for nausea. You may take one additional dose of reglan if needed for nausea at home. Return to ER for fevers greater than 100.4F, worsening pain, persistent vomiting, new back, chest pain or shortness of breath. If your g-tube is not draining or other new or concerning symptoms. Prescriptions: No Action morphine 15 mg tablet 15 mg PO Q4-6H PRN (Reason: pain) Qty: 40 RF: 0 lisinopril 10 mg Tablet 10 mg PO DAILY RF: 0 sennosides [Senokot] 8.6 mg tablet 8.6 mg PO BEDTIME Qty: 10 RF: 1 docusate sodium [Colace] 100 mg capsule 100 mg PO BID Qty: 14 RF: 1 pantoprazole [Protonix] 40 mg tablet,delayed release (DR/EC) 40 mg PO DAILY Qty: 30 RF: 0 acetaminophen 325 mg Tablet 650 mg PO Q6HR PRN (Reason: As Needed For Fever/Mild Pain) Qty: 60 RF: 1 citalopram 20 mg Tablet 20 mg PO DAILY Qty: 30 RF: 1 lisinopril 10 mg Tablet 10 mg PO DAILY Qty: 30 RF: 1 lorazepam 1 mg Tablet 1 mg PO Q4HR PRN (Reason: Anxiety) Qty: 30 RF: 1 ondansetron 4 mg Tablet,Disintegrating 4 mg Sublingual Q4HR PRN (Reason: Nausea) Qty: 30 RF: 0 fentanyl 25 mcg/hr patch 72 hour 1 patch Transdermal Q72H Qty: 5 RF: 0 Referrals: Tate Levy MD [Physician] -
--- NOTE | 2018-07-22 16:07 | ED_ITS ---
HPI - Abdominal Pain General Chief Complaint: Abdominal Pain Stated Complaint: CRAMPING VOMITTING BOWL OBSTRUCTION Time Seen by Provider: 07/22/18 15:29 Source: patient and old records reviewed Mode of arrival: ambulatory Limitations: no limitations History of Present Illness HPI narrative: This is a 53-year-old female comes to the emergency department with abdominal pain. Patient has history of recurrent high-grade bowel obstruction. 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 It has been healing currently. Patient denies any fevers, states that she has had increasing abdominal pain today. Patient has been vomiting. She states she has not had a bowel movement several months. She does pass flatus regularly. This is consistent with her last surgical office visit. Patient does have drainage from the gastrostomy tube normally. She is not having any currently. Patient has not had any fevers. She denies any chest pain or shortness of breath. No back pain. No urinary symptoms. Related Data Home Medications Medication Instructions Recorded Confirmed lisinopril 10 mg PO DAILY 04/21/18 07/12/18 Previous Rx's Medication Instructions Recorded docusate sodium [Colace] 100 mg PO BID #14 cap 05/10/18 pantoprazole [Protonix] 40 mg PO DAILY #30 tab 05/10/18 sennosides [Senokot] 8.6 mg PO BEDTIME #10 tab 05/10/18 acetaminophen 650 mg PO Q6HR PRN #60 tab 07/09/18 citalopram 20 mg PO DAILY #30 tab 07/09/18 fentanyl 1 patch TRANSDERMAL Q72H #5 each 07/09/18 lisinopril 10 mg PO DAILY #30 tab 07/09/18 lorazepam 1 mg PO Q4HR PRN #30 tab 07/09/18 morphine 15 mg immediate release 15 mg PO Q4-6H PRN #40 tab 07/09/18 tablet ondansetron 4 mg SUBLINGUAL Q4HR PRN #30 tab 07/09/18 Allergies Allergy/AdvReac Type Severity Reaction Status Date / Time Penicillins Allergy Intermediate Hives Verified 06/08/18 17:15 ranitidine [From Zantac] Allergy Intermediate Hives Verified 06/08/18 17:15 Review of Systems Review of Systems ROS Unobtainable: All systems reviewed & are unremarkable except as noted in HPI and below Constitutional Denies chills, Denies fever(s), Denies lethargy and Denies weakness Cardiovascular Denies chest pain, Denies edema and Denies dyspnea Respiratory Denies chest congestion, Denies cough, Denies dyspnea and Denies wheezing Gastrointestinal Gastrointestinal: Reports abdominal pain, Denies melena, Denies hematochezia, Denies change in bowel habits, Reports constipation (no BM for months per patient, does have flatus, on tpn), Denies diarrhea, Reports nausea, Reports vom iting and Reports other (peg tube, recent surgery) Genitourinary Denies hematuria, Denies flank pain, Denies urinary incontinence and Denies urinary urgency Integumentary/Breasts Reports wounds Neurologic Denies weakness Allergic/Immunologic Denies wheezing [facility] Medical History Anxiety disorder (Acute) Morbid obesity with BMI of 45.0-49.9, adult (Acute) Small bowel obstruction due to adhesions (Acute) HTN (hypertension) (Chronic) Migraine (Chronic) Postoperative ileus (Resolved) Surgical History Status post exploratory laparotomy (Acute) Status post appendectomy (Resolved) Status post hysterectomy (Resolved) Family History Mother Hypertension Diabetes mellitus Father Cancer Social History household members: significant other and family Smoking Status: Former smoker Social History household members: significant other and family Smoking Status: Former smoker Exam Narrative Exam Narrative: GENERAL: Alert and oriented x three, obese female in severe dis tress. Patient is moaning but answers questions. HEENT: Head normocephalic, atraumatic, EOMI, pupils reactive, face symmetric, moist mucous membranes NECK: Supple, full range of motion CARDIOVASCULAR: Regular rate and rhythm without murmurs, rubs or gallops. RESPIRATORY: Breath sounds equal bilaterally, no wheezes rales or rhonchi. ABDOMEN: Soft, mildly tender to palpation midabdomen, peg tube in place, surrounding area appears clean, dry and intact. Nursing flushed without issue but could not pull back. Hypoactive bowel sounds all 4 quadrants. No guarding or rebound, rigidity, no mass, patient has wound dehiscence of ventral abdomen with bandages applies, pink granulation tissue centrally without any exposure of bowel. No surrounding erythema. Serosanguineous drainage. : No CVA tenderness EXTREMITIES: Normal range of motion, no clubbing or edema. Neurovascularly intact NEUROLOGICAL: Cranial nerves II through XII grossly intact. Moving all extremities SKIN: Warm, dry, no petechiae, no rashes or lesions. Initial Vital Signs Initial Vital Signs: Vital Signs Pulse Rate 114 H 07/22/18 15:38 Respiratory Rate 24 07/22/18 15:38 Blood Pressure 161/83 H 07/22/18 15:38 Pulse Oximetry 99 07/22/18 15:38 Course Orders Ordered: ED Orders 07/22/18 15:45 Complete Blood Count AUTO DIFF Stat Comprehensive Metabolic Panel Stat Lipase Stat Partial Thromboplastin Time Stat Prothrombin Time INR Stat 07/22/18 16:00 CT abdomen pelvis w con Stat 07/22/18 16:09 Lactate (Lactic Acid) Stat 07/22/18 16:20 Blood Culture Stat 07/22/18 17:05 Ictotest Urine Stat Urine Microscopic Stat 07/22/18 18:25 Lactate (Lactic Acid) Stat Discontinued Medications Hydromorphone HCl (Dilaudid) 1 mg IV NOW ONE Stop: 07/22/18 16:02 Last Admin: 07/22/18 16:11 Dose: 1 mg Hydromorphone HCl (Dilaudid) 1 mg IV NOW ONE Stop: 07/22/18 16:50 Last Admin: 07/22/18 16:53 Dose: 1 mg Sodium Chloride (Normal Saline 0.9%) 1,000 mls @ 1,000 mls/hr IV BOLUS ONE Stop: 07/22/18 17:00 Last Infusion: 07/22/18 17:32 Dose: 0 mls/hr Admin: 07/22/18 16:12 Dose: 1,000 mls/hr Sodium Chloride (Normal Saline 0.9%) 1,000 mls @ 1,000 mls/hr IV BOLUS ONE Stop: 07/22/18 18:31 Last Admin: 07/22/18 17:33 Dose: 1,000 mls/hr Metoclopramide HCl (Reglan) 5 mg PO NOW ONE Stop: 07/22/18 18:53 Ondansetron HCl (Zofran) 4 mg IV NOW ONE Stop: 07/22/18 15:34 Last Admin: 07/22/18 15:56 Dose: 4 mg Vital Signs - 8 hr 07/22/18 15:38 07/22/18 16:00 07/22/18 17:00 Pulse Rate 114 H 105 H 106 H Respiratory Rate 24 25 H 15 Blood Pressure 161/83 H Blood Pressure [Left Arm] 145/82 H 91/50 L Pulse Oximetry 99 100 96 07/22/18 17:44 07/22/18 18:00 Pulse Rate 98 H 104 H Respiratory Rate 16 8 L Blood Pressure Blood Pressure [Left Arm] 113/64 105/63 Pulse Oximetry 95 97 MDM - Abdominal Pain Lab Data Attestation: I reviewed the patient's lab results. Result diagrams: 07/22/18 15:45 07/22/18 15:45 Lab Results 07/22/18 07/22/18 07/22/18 Range/Units 15:45 15:45 15:45 WBC 10.2 (4.5-11.0) X10^3/uL RBC 4.34 (4.0-5.2) X10^6/uL Hgb 11.8 L (12.0-16.0) g/dL Hct 35.8 L (36-46) % MCV 82.4 (80-100) fL MCH 27.2 (26-34) PG MCHC 33.0 (30-36) % RDW 18.2 H (11.6-14.8) % Plt Count 328 (150-400) X10^3/uL Neut % (Auto) 74.1 (50-75) % Lymph % (Auto) 21.3 L (25-40) % [place] % (Auto) 3.5 (3-14) % Eos % (Auto) 0.1 L (2-4) % Baso % (Auto) 1.0 (0-2) % Neut # (Auto) 7600 H (1328-7566) /uL Lymph # (Auto) 2200 (0087-3103) /uL [place] # (Auto) 400 (0-900) /uL Eos # (Auto) 0 (0-450) /uL Baso # (Auto) 100 (0-100) /uL PT 13.8 H (10.1-12.7) SECONDS INR 1.2 (0.9-1.3) APTT 30 (26.4-36.2) SECONDS Sodium 136 L (137-145) mmol/L Potassium 3.9 (3.4-5.1) mmol/L Chloride 99 (98-107) mmol/L Carbon Dioxide 22 (22-32) mmol/L BUN 29 H (7-17) mg/dL Creatinine 0.70 (0.52-1.04) mg/dL Estimated GFR > 60.0 (>60) mL/min BUN/Creatinine Ratio 41.4 H (6-22) Glucose 195 H (70-100) mg/dL Lactate (0.7-2.1) mmol/L Calcium 9.6 (8.4-10.2) mg/dL Total Bilirubin 0.3 (0.2-1.3) mg/dL AST 24 (14-36) IU/L ALT 28 (9-52) IU/L Alkaline Phosphatase 96 (38-126) U/L Total Protein 7.7 (6.3-8.2) g/dL Albumin 3.8 (3.5-5.0) g/dL Globulin 3.9 (1.7-4.1) g/dL Albumin/Globulin Ratio 1.0 (1.0-2.8) Lipase 92 (23-300) U/L Urine Ictotest (Negative) Urine RBC (0-5/HPF) Urine WBC (0-5/HPF) Ur Squamous Epith Cells Urine Bacteria (None) Hyaline Casts (None) Urine Mucus (Negative) Ur Culture Indicated? 07/22/18 07/22/18 07/22/18 Range/Units 16:09 17:05 18:25 WBC (4.5-11.0) X10^3/uL RBC (4.0-5.2) X10^6/uL Hgb (12.0-16.0) g/dL Hct (36-46) % MCV (80-100) fL MCH (26-34) PG MCHC (30-36) % RDW (11.6-14.8) % Plt Count (150-400) X10^3/uL Neut % (Auto) (50-75) % Lymph % (Auto) (25-40) % [place] % (Auto) (3-14) % Eos % (Auto) (2-4) % Baso % (Auto) (0-2) % Neut # (Auto) (9394-1035) /uL Lymph # (Auto) (0449-0861) /uL [place] # (Auto) (0-900) /uL Eos # (Auto) (0-450) /uL Baso # (Auto) (0-100) /uL PT (10.1-12.7) SECONDS INR (0.9-1.3) APTT (26.4-36.2) SECONDS Sodium (137-145) mmol/L Potassium (3.4-5.1) mmol/L Chloride (98-107) mmol/L Carbon Dioxide (22-32) mmol/L BUN (7-17) mg/dL Creatinine (0.52-1.04) mg/dL Estimated GFR (>60) mL/min BUN/Creatinine Ratio (6-22) Glucose (70-100) mg/dL Lactate 3.0 H 1.6 (0.7-2.1) mmol/L Calcium (8.4-10.2) mg/dL Total Bilirubin (0.2-1.3) mg/dL AST (14-36) IU/L ALT (9-52) IU/L Alkaline Phosphatase (38-126) U/L Total Protein (6.3-8.2) g/dL Albumin (3.5-5.0) g/dL Globulin (1.7-4.1) g/dL Albumin/Globulin Ratio (1.0-2.8) Lipase (23-300) U/L Urine Ictotest Negative (Negative) Urine RBC None seen (0-5/HPF) Urine WBC 1-5/hpf (0-5/HPF) Ur Squamous Epith Cells 5-10 /hpf H Urine Bacteria Moderate (10-30) H (None) Hyaline Casts 1-5/lpf (None) Urine Mucus 1+ H (Negative) Ur Culture Indicated? Cult not indicated Point of care testing: Urine Dip Bedside Urine Glucose Negative Bedside Urine Bilirubin + 1 Bedside Urine Ketone + 15 Urine Specific [place] 1.020 Bedside Urine Occult Blood - Negative Bedside Urine pH 6.0 Bedside Urine Protein +/- 15 Bedside Urine Urobilinogen +/- 1mg Bedside Urine Nitrite - Negative Bedside Urine Leukocytes - Negative Esterase Imaging Data CT abd/pelvis: Radiologist's impression: [address] [address] [address] Scan Report Signed Patient: Carol Reyes LMR#: [id number] : 1965Acct:[id number] Age/Sex: 53 / FDate of Service: 07/22/18 Loc: ED Accession Number: [id number] Procedure: CT abdomen pelvis w con Ordering Provider: Veronique Puente D.O. PROCEDURE: CT ABDOMEN PELVIS W CON INDICATIONS: abdominal pain, recent abdominal surgery, dehis, peg tube TECHNIQUE: After the administration of intravenous contrast, 5 mm thick sections acquired from the diaphragm to the symphysis. 5 mm coronal and sagittal reformats were acquired. For radiation dose reduction, the following was used: automated exposure control, adjustment of mA and/or kV according to patient size. COMPARISON: [facility], CT, CT ABDOMEN W CON, 07/01/2018, 14:24. FINDINGS: Image quality: Excellent. ABDOMEN: Lung bases: Lung bases are clear. Heart size is normal. Solid organs: Liver is normal in size and enhancement. Gallbladder negative. Biliary system is non dilated. Pancreas enhances normally. Spleen is normal in size and enhancement. No adrenal nodules. Kidneys demonstrate normal size and en hancement, without hydronephrosis. Peritoneum and bowel: Incidental note of PEG tube. There multiple dilated small bowel loops filled with fluid and with scattered air-fluid levels. There is equ alization of small bowel loops. The colon is relatively decompressed. Nodes and vessels: No retroperitoneal or mesenteric adenopathy by size criteria. Aorta and inferior vena cava are normal in size. Miscellaneous: Large midline ventral abdominal wall incision, as before PELVIS: Genitourinary: Bladder wall thickness is normal. Miscellaneous: No inguinal hernias or adenopathy. Bones: No suspicious bony lesions. No vertebral body compression fractures. IMPRESSION: Overall, redemonstration of dilated fluid and gas-filled central small bowel loops, slightly progressed since the prior study in keeping with persistent bowel obstruction. Exact transition point is not well-visualized. Elsewhere, no significant interval change since 07/01/18. Dictated by: Eloy Alexis M.D. on 07/22/2018 at 17:40 Approved by: Eloy Alexis M.D. on 07/22/2018 at 17:46 [facility] Narrative Medical decision making narrative: 53-year-old female with complicated abdominal surgical history. Patient has had rapid increasing pain in her abdomen recently and has not had much drainage from a gastrotomy tube. Plan for CT of abdomen pelvis, lab work and consultation with surgery. Concern for recurrent bowel obstruction, complication with gastrotomy. Labs are normal other than elevated lactate at 3, CT shows Dr. Cantu consulted, discussed that patient lactate is elevated at 3 but labs are otherwise not elevated. CT shows demonstration of dilated fluid gas-filled central small bowel loops which is slightly progressed since prior study with persistent consistent with persistent bowel obstruction. Patient has hysterotomy 2. It has been draining not as much as it normally does but still continuing. Patient's emesis has stopped after Zofran and her pain is controlled here in the ER after 2 doses of Dilaudid. Plan is to repeat lactate if it is improving after 2 L of fluid plan is for patient to follow up tomorrow, with Dr. Levy. Patient states she has an appointment on Monday but is happy to call tomorrow morning. She would prefer to return home and not be admitted to the hospital. We did discuss that she has had Reglan in the past that that might be helpful so we may give her a dose for home. She has Zofran at home. While awaiting lactate patient's gastrostomy tube started draining more fluid than it had before but appears same in consistency and color. Patient states it did feel as if it gave some relief. She is more comfortable at this time. Discharge Plan Departure Patient Disposition: Home Clinical Impression: Abdominal pain, Vomiting Activity Restrictions/Additional Instructions: Call Dr. Levy's office tomorrow for recheck. They may wish to move your appointment to earlier in the week. Continue fluids and TPN as prescribed. Continue home medications as prescribed, continue zofran as needed for nausea. You may take one additional dose of reglan if needed for nausea at home. Return to ER for fevers greater than 100.4F, worsening pain, persistent vomiting, new back, chest pain or shortness of breath. If your g-tube is not draining or other new or concerning symptoms. Prescriptions: No Action morphine 15 mg tablet 15 mg PO Q4-6H PRN (Reason: pain) Qty: 40 RF: 0 lisinopril 10 mg Tablet 10 mg PO DAILY RF: 0 sennosides [Senokot] 8.6 mg tablet 8.6 mg PO BEDTIME Qty: 10 RF: 1 docusate sodium [Colace] 100 mg capsule 100 mg PO BID Qty: 14 RF: 1 pantoprazole [Protonix] 40 mg tablet,delayed release (DR/EC) 40 mg PO DAILY Qty: 30 RF: 0 acetaminophen 325 mg Tablet 650 mg PO Q6HR PRN (Reason: As Needed For Fever/Mild Pain) Qty: 60 RF: 1 citalopram 20 mg Tablet 20 mg PO DAILY Qty: 30 RF: 1 lisinopril 10 mg Tablet 10 mg PO DAILY Qty: 30 RF: 1 lorazepam 1 mg Tablet 1 mg PO Q4HR PRN (Reason: Anxiety) Qty: 30 RF: 1 ondansetron 4 mg Tablet,Disintegrating 4 mg Sublingual Q4HR PRN (Reason: Nausea) Qty: 30 RF: 0 fentanyl 25 mcg/hr patch 72 hour 1 patch Transdermal Q72H Qty: 5 RF: 0 Referrals: Tate Levy MD [Physician] -
[2018-07-22 16:10] LABS: INR 1.2 (0.9-1.3); Prothrombin Time 13.8 SECONDS (10.1-12.7)
[2018-07-22] MEDS: HYDROMORPHONE 1 MG INJ IV ×2 (16:11→16:53)
[2018-07-22] MEDS: SODIUM CHLORIDE 0.9% 1,000 ML 1000 ML IV ×2 (16:12→17:33)
[2018-07-22 16:13] LABS: PTT Partial Thromboplastin Tim 30 SECONDS (26.4-36.2)
[2018-07-22 16:14] LABS: Alanine Aminotransferase 28 IU/L (9-52); Albumin 3.8 g/dL (3.5-5.0); Alkaline Phosphatase 96 U/L (38-126); Aspartate Aminotransferase 24 IU/L (14-36); BUN Creatinine Ratio 41.4 (6-22); Bilirubin Total 0.3 mg/dL (0.2-1.3); Blood Urea Nitrogen 29 mg/dL (7-17); Calcium 9.6 mg/dL (8.4-10.2); Carbon Dioxide 22 mmol/L (22-32); Chloride 99 mmol/L (98-107); Estimated Glomerular Filt Rate > 60.0 mL/min (>60); Globulin 3.9 g/dL (1.7-4.1); Glucose 195 mg/dL (70-100); HEMOLYSIS < 15 (0-50); Lipase 92 U/L (23-300); Potassium 3.9 mmol/L (3.4-5.1); Sodium 136 mmol/L (137-145); Total Protein 7.7 g/dL (6.3-8.2)
[2018-07-22 17:00] VITALS: BP 91/50; PULSE 106; RESP 15; O2SAT 96
[2018-07-22 17:06] LABS: RBC Urine None Seen (0-5/HPF)
[2018-07-22 17:17] LABS: Bacteria Urine Moderate (10-30); Hyaline Casts Urine 1-5/LPF; Ictotest Urine Negative (Negative); Mucus Urine 1+ (Negative); Squamous Epithelial Cell Urine 5-10 /HPF; WBC Urine 1-5/HPF (0-5/HPF)
[2018-07-22 17:18] LABS: Culture Indicated Urine Cult Not Indicated
[2018-07-22 17:44] VITALS: BP 113/64; PULSE 98; RESP 16; O2SAT 95
[2018-07-22 18:00] VITALS: BP 105/63; PULSE 104; RESP 8; O2SAT 97
[2018-07-22 18:45] LABS: Lactate (Lactic Acid) 1.6 mmol/L (0.7-2.1)
[2018-07-22] MEDS: METOCLOPRAMIDE HCL 5 MG TABLET PO (19:30)
[2018-07-22] MEDS: HYDROMORPHONE 1 MG INJ 0.5 MG IV (19:53)
[2018-07-22 20:02] VITALS: BP 102/49; PULSE 98; RESP 16; TEMP 36.7; O2SAT 97
[2018-07-22 20:19] LABS: Reflexed Lactate in 2 Hours Y
== END 2018-07-22 20:04 | disposition home or self-care (01) ==
PROVIDERS: Internal Medicine; Emergency Provider Emergency Medicine
DX: R10.9 Unspecified abdominal pain (principal); R11.10 Vomiting, unspecified; Z93.1 Gastrostomy status
CPT/HCPCS: 36415; 74177; 80053; 81003; 81015; 83605; 83690; 85025; 85610; 85730; 87040; 96361; 96374; 96375; 96376; 99283; 99285; J1170; J2405; Q9967

== ENCOUNTER 2018-07-23 11:18 | Inpatient (IN) | payer OTHER, MEDICAID, SELFPAY ==
[2018-07-12 16:23] VITALS: BMI 43.0
[2018-07-23] VITALS (8 sets, daily range): BP systolic 117–171; BP diastolic 62–109; PULSE 80–109; RESP 17–30; TEMP 36.6–37; O2SAT 95–100; BMI 34.1
[2018-07-23] MEDS: ONDANSETRON 4 MG/2 ML INJ IV ×2 (11:32→21:02)
[2018-07-23] MEDS: HYDROMORPHONE 1 MG INJ IV ×2 (11:32→13:25)
[2018-07-23] MEDS: SODIUM CHLORIDE 0.9% 1,000 ML 1000 ML IV (11:32)
--- NOTE | 2018-07-23 11:42 | PC.NURSE ---
Patient request we use her in place PICC line for medications. MD garcia. Called lab for draw. after administration of zofran and pain medication patient is no longer dry heaving and asks for lights to be turned off. Pt appears to be resting comfortably. Respirations even and unlabored.
[2018-07-23 12:05] LABS: Add Manual Diff / Slide Review NO; Basophils Absolute Auto 100 /uL (0-100); Basophils Percent Auto 0.8 % (0-2); Eosinophils Absolute Auto 0 /uL (0-450); Eosinophils Percent Auto 0.5 % (2-4); Hematocrit 30.4 % (36-46); Hemoglobin 10.4 g/dL (12.0-16.0); Lymphocytes Absolute Auto 700 /uL (1100-4500); Lymphocytes Percent Auto 10.7 % (25-40); Mean Corpuscular HGB Conc 34.4 % (30-36); Mean Corpuscular Hemoglobin 27.4 PG (26-34); Mean Corpuscular Volume 79.9 fL (80-100); Monocytes Absolute Auto 300 /uL (0-900); Monocytes Percent Auto 5.3 % (3-14); Neutrophils Absolute Auto 5200 /uL (1500-7000); Neutrophils Percent Auto 82.7 % (50-75); Platelet Count 246 X10^3/uL (150-400); Red Cell Distribution Width 18.7 % (11.6-14.8); White Blood Cell Count 6.4 X10^3/uL (4.5-11.0)
[2018-07-23] MEDS: METOCLOPRAMIDE 10 MG/2 ML INJ IV (12:06)
[2018-07-23 12:16] LABS: Alanine Aminotransferase 27 IU/L (9-52); Albumin 3.4 g/dL (3.5-5.0); Alkaline Phosphatase 83 U/L (38-126); Aspartate Aminotransferase 20 IU/L (14-36); BUN Creatinine Ratio 38.6 (6-22); Bilirubin Total 0.3 mg/dL (0.2-1.3); Blood Urea Nitrogen 27 mg/dL (7-17); Calcium 8.9 mg/dL (8.4-10.2); Carbon Dioxide 23 mmol/L (22-32); Chloride 104 mmol/L (98-107); Estimated Glomerular Filt Rate > 60.0 mL/min (>60); Globulin 3.5 g/dL (1.7-4.1); Glucose 173 mg/dL (70-100); HEMOLYSIS < 15 (0-50); Potassium 3.4 mmol/L (3.4-5.1); Sodium 138 mmol/L (137-145); Total Protein 6.9 g/dL (6.3-8.2)
[2018-07-23 12:17] LABS: Lactate (Lactic Acid) 2.2 mmol/L (0.7-2.1)
--- NOTE | 2018-07-23 12:50 | ED.ABDPAIN ---
HPI - Abdominal Pain General Chief Complaint: Abdominal Pain Stated Complaint: sever abdominal pain and vomitting Time Seen by Provider: 07/23/18 11:27 Source: patient and family Mode of arrival: ambulatory Limitations: no limitations History of Present Illness HPI narrative: This is a 53-year-old female was seen by myself yesterday for a nausea vomiting abdominal pain. Patient has had a complicated history with chronic bowel obstruction, she has a G-tube in place to drain upper secretions and gastric secretions. 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 Patient had a CT yesterday which showed continued bowel obstruction but no other inflammatory or infectious changes. She was improved after Zofran and 2 doses of Dilaudid. She had some nausea and received a 3rd dose prior to discharge. Today she started having vomiting and abdominal pain again. Surgery was consulted to Dr. Cantu yesterday. Patient states last night after she was discharged her pain was fine she did have any nausea started having some this morning she started having nausea, vomiting abdominal pain started all about the same time. She has not had any fevers. She continues to have flatus but no stool output which is normal for her. She states she has continued to have output from her G-tube she is not sure about the mouth. Patient states it is just sort of lower abdominal pain more than anything. Related Data Previous Rx's Medication Instructions Recorded pantoprazole [Protonix] 40 mg PO DAILY #30 tab 05/10/18 sennosides [Senokot] 8.6 mg PO BEDTIME #10 tab 05/10/18 acetaminophen 650 mg PO Q6HR PRN #60 tab 07/09/18 citalopram 20 mg PO DAILY #30 tab 07/09/18 fentanyl 1 patch TRANSDERMAL Q72H #5 each 07/09/18 lisinopril 10 mg PO DAILY #30 tab 07/09/18 lorazepam 1 mg PO Q4HR PRN #30 tab 07/09/18 morphine 15 mg immediate release 15 mg PO Q4-6H PRN #40 tab 07/09/18 tablet ondansetron 4 mg SUBLINGUAL Q4HR PRN #30 tab 07/09/18 Allergies Allergy/AdvReac Type Severity Reaction Status Date / Time Penicillins Allergy Intermediate Hives Verified 07/23/18 11:27 ranitidine [From Zantac] Allergy Intermediate Hives Verified 07/23/18 11:27 Review of Systems Review of Systems ROS Unobtainable: All systems reviewed & are unremarkable except as noted in HPI and below Constitutional Denies chills, Denies fever(s), Denies lethargy and Denies weakness Cardiovascular Denies chest pain, Denies palpitations, Denies dyspnea and Denies dyspnea on exertion Respiratory Denies cough, Denies dyspnea, Denies dyspnea on exertion and Denies wheezing Gastrointestinal Gastrointestinal: Reports abdominal pain, Denies melena, Denies hematochezia, Denies change in bowel habits, Reports constipation (no BM for months, does have flatus regularly), Denies diarrhea, Reports nausea, Reports vomiting and Reports other (g-tube has continued output.) Genitourinary Denies hematuria, Denies dysuria, Denies flank pain, Denies urinary incontinence and Denies urinary urgency Musculoskeletal Denies back pain Neurologic Denies weakness Endocrine Denies palpitations Allergic/Immunologic Denies wheezing [facility] Medical History Anxiety disorder (Acute) Morbid obesity with BMI of 45.0-49.9, adult (Acute) Small bowel obstruction due to adhesions (Acute) HTN (hypertension) (Chronic) Migraine (Chronic) Postoperative ileus (Resolved) Surgical History Status post exploratory laparotomy (Acute) Status post appendectomy (Resolved) Status post hysterectomy (Resolved) Family History Mother Hypertension Diabetes mellitus Father Cancer Social History household members: significant other and family Smoking Status: Former smoker Family History Mother Hypertension Diabetes mellitus Father Cancer Social History household members: significant other and family Smoking Status: Former smoker Exam Narrative Exam Narrative: GENERAL: Alert and oriented x three, obese female in moderate distress. HEENT: Head normocephalic, atraumatic, EOMI, pupils reactive, face symmetric, moist mucous membranes NECK: Supple, full range of motion CARDIOVASCULAR: Regular rate and rhythm without murmurs, rubs or gallops. RESPIRATORY: Breath sounds equal bilaterally, no wheezes rales or rhonchi. ABDOMEN: Soft, nontender to palpation. Hypoactive bowel sounds all 4 quadrants. No guarding or rebound, rigidity. No mass noted. Patient has a G-tube from the left upper quadrant that appears clean dry and intact draining bilious fluid. There is about 400-600 cc in the bag fluid actively moving through her tubing. Patient's lower abdomen has a ventral incision below the umbilicus that appears to be chronically dehisced. There is pink granulation tissue. There does not appear to be any foul odor or discharge. Patient does not have any signs of erythema or cellulitis of the surrounding area. : No CVA tenderness EXTREMITIES: Normal range of motion, no clubbing or edema. Neurovascularly intact NEUROLOGICAL: Cranial nerves II through XII grossly intact. Moving all extremities SKIN: Warm, dry, no petechiae, no rashes or lesions. Initial Vital Signs Initial Vital Signs: Vital Signs Temperature 97.8 F 07/23/18 11:25 Pulse Rate 109 H 07/23/18 11:25 Respiratory Rate 30 H 07/23/18 11:25 Blood Pressure 150/98 H 07/23/18 11:25 Pulse Oximetry 100 07/23/18 11:25 Course Orders Ordered: ED Orders 07/23/18 11:55 Complete Blood Count AUTO DIFF Stat Comprehensive Metabolic Panel Stat Lactate (Lactic Acid) Stat 07/23/18 14:04 Consult to Discharge Planning Routine 07/23/18 16:22 Lactate 4HR (Lactic Acid Rflx) Stat 07/24/18 Basic Metabolic Panel Routine Complete Blood Count AUTO DIFF Routine Magnesium Routine Citalopram Hydrobromide (Celexa) 20 mg PO DAILY [facility] Dextrose (D50w) 25 gm IV PRN PRN; Protocol PRN Reason: Hypoglycemia Diphenhydramine HCl (Benadryl) 25 mg IV Q6HR PRN PRN Reason: Itching Enoxaparin Sodium (Lovenox) 40 mg SUBCUT DAILY [facility] Fentanyl (Duragesic) 25 mcg TOP Q72H [facility] Last Admin: 07/23/18 15:45 Dose: 25 mcg Hydromorphone HCl (Dilaudid) 0.5 mg IV Q4HR PRN PRN Reason: Pain, Severe (7-10) Last Admin: 07/23/18 17:20 Dose: 0.5 mg Dextrose/Sodium Chloride (Dextrose 5%-0.45% Ns) 1,000 mls @ 125 mls/hr IV CONT MUKUL Last Admin: 07/23/18 15:46 Dose: 125 mls/hr Multivitamins 10 ml/ Chromium/Copper/Manganese/Seleni/Zn 1 ml/ Amino Acids/Electrolytes 1,011 mls @ 42.125 mls/hr IV 1800 MUKUL Stop: 07/24/18 17:59 Last Admin: 07/23/18 18:06 Dose: 42.125 mls/hr Fat Emulsion Intravenous (Intralipid) 50 gm in 250 mls @ 25 mls/hr IV 1800 MUKUL Stop: 07/24/18 03:59 Last Admin: 07/23/18 18:06 Dose: 25 mls/hr Insulin Aspart (Novolog Flexpen) 0 unit SUBCUT 0000,0600,1200,1800 MUKUL; Protocol Last Admin: 07/23/18 18:04 Dose: Not Given Lisinopril (Zestril) 10 mg PO DAILY [facility] Lorazepam (Ativan) 1 mg IV Q4HR PRN PRN Reason: Anxiety Naloxone HCl (Narcan) 0.2 mg IV Q2MIN PRN PRN Reason: Opiate Reversal Ondansetron HCl (Zofran) 4 mg IV Q4HR PRN PRN Reason: Nausea And Vomiting Pantoprazole Sodium (Protonix) 40 mg IV DAILY MUKUL Discontinued Medications Hydromorphone HCl (Dilaudid) 1 mg IV NOW ONE Stop: 07/23/18 11:28 Last Admin: 07/23/18 11:32 Dose: 1 mg Hydromorphone HCl (Dilaudid) 1 mg IV NOW ONE Stop: 07/23/18 13:23 Last Admin: 07/23/18 13:25 Dose: 1 mg Sodium Chloride (Normal Saline 0.9%) 1,000 mls @ 1,000 mls/hr IV BOLUS ONE Stop: 07/23/18 12:26 Last Infusion: 07/23/18 12:55 Dose: 0 mls/hr Admin: 07/23/18 11:32 Dose: 1,000 mls/hr Insulin Aspart (Novolog Flexpen) 0 unit SUBCUT Q6H MUKUL; Protocol Last Admin: 07/23/18 17:53 Dose: Not Given Metoclopramide HCl (Reglan) 10 mg IV NOW ONE Stop: 07/23/18 12:04 Last Admin: 07/23/18 12:06 Dose: 10 mg Metoclopramide HCl (Reglan) 10 mg IV NOW ONE Stop: 07/23/18 12:10 Last Admin: 07/23/18 13:20 Dose: Not Given Ondansetron HCl (Zofran) 4 mg IV NOW ONE Stop: 07/23/18 11:28 Last Admin: 07/23/18 11:32 Dose: 4 mg Vital Signs - 8 hr 07/23/18 12:10 07/23/18 14:19 07/23/18 15:00 Temperature Pulse Rate 100 H 89 Respiratory Rate 20 17 Blood Pressure Blood Pressure [Left Wrist] 171/109 H 117/62 Pulse Oximetry 99 97 98 07/23/18 16:00 Temperature 98.6 F Pulse Rate 88 Respiratory Rate 18 Blood Pressure 129/76 Blood Pressure [Left Wrist] Pulse Oximetry 99 MDM - Abdominal Pain Lab Data Attestation: I reviewed the patient's lab results. Result diagrams: 07/23/18 11:55 07/23/18 11:55 Lab Results 07/23/18 07/23/18 07/23/18 Range/Units 11:55 11:55 11:55 WBC 6.4 (4.5-11.0) X10^3/uL RBC 3.80 L (4.0-5.2) X10^6/uL Hgb 10.4 L (12.0-16.0) g/dL Hct 30.4 L (36-46) % MCV 79.9 L (80-100) fL MCH 27.4 (26-34) PG MCHC 34.4 (30-36) % RDW 18.7 H (11.6-14.8) % Plt Count 246 (150-400) X10^3/uL Neut % (Auto) 82.7 H (50-75) % Lymph % (Auto) 10.7 L (25-40) % [place] % (Auto) 5.3 (3-14) % Eos % (Auto) 0.5 L (2-4) % Baso % (Auto) 0.8 (0-2) % Neut # (Auto) 5200 (3641-0595) /uL Lymph # (Auto) 700 L (2760-5165) /uL [place] # (Auto) 300 (0-900) /uL Eos # (Auto) 0 (0-450) /uL Baso # (Auto) 100 (0-100) /uL Sodium 138 (137-145) mmol/L Potassium 3.4 (3.4-5.1) mmol/L Chloride 104 (98-107) mmol/L Carbon Dioxide 23 (22-32) mmol/L BUN 27 H (7-17) mg/dL Creatinine 0.70 (0.52-1.04) mg/dL Estimated GFR > 60.0 (>60) mL/min BUN/Creatinine Ratio 38.6 H (6-22) Glucose 173 H (70-100) mg/dL Lactate 2.2 H (0.7-2.1) mmol/L Calcium 8.9 (8.4-10.2) mg/dL Total Bilirubin 0.3 (0.2-1.3) mg/dL AST 20 (14-36) IU/L ALT 27 (9-52) IU/L Alkaline Phosphatase 83 (38-126) U/L Total Protein 6.9 (6.3-8.2) g/dL Albumin 3.4 L (3.5-5.0) g/dL Globulin 3.5 (1.7-4.1) g/dL Albumin/Globulin Ratio 1.0 (1.0-2.8) 07/23/18 Range/Units 16:22 WBC (4.5-11.0) X10^3/uL RBC (4.0-5.2) X10^6/uL Hgb (12.0-16.0) g/dL Hct (36-46) % MCV (80-100) fL MCH (26-34) PG MCHC (30-36) % RDW (11.6-14.8) % Plt Count (150-400) X10^3/uL Neut % (Auto) (50-75) % Lymph % (Auto) (25-40) % [place] % (Auto) (3-14) % Eos % (Auto) (2-4) % Baso % (Auto) (0-2) % Neut # (Auto) (6974-4427) /uL Lymph # (Auto) (3941-8840) /uL [place] # (Auto) (0-900) /uL Eos # (Auto) (0-450) /uL Baso # (Auto) (0-100) /uL Sodium (137-145) mmol/L Potassium (3.4-5.1) mmol/L Chloride (98-107) mmol/L Carbon Dioxide (22-32) mmol/L BUN (7-17) mg/dL Creatinine (0.52-1.04) mg/dL Estimated GFR (>60) mL/min BUN/Creatinine Ratio (6-22) Glucose (70-100) mg/dL Lactate 1.1 (0.7-2.1) mmol/L Calcium (8.4-10.2) mg/dL Total Bilirubin (0.2-1.3) mg/dL AST (14-36) IU/L ALT (9-52) IU/L Alkaline Phosphatase (38-126) U/L Total Protein (6.3-8.2) g/dL Albumin (3.5-5.0) g/dL Globulin (1.7-4.1) g/dL Albumin/Globulin Ratio (1.0-2.8) Point of care testing: Point of Care Testing Glucose POC 107 Urine Dip Bedside Urine Glucose Negative Bedside Urine Bilirubin - Negative Bedside Urine Ketone - Negative Urine Specific [place] 1.025 Bedside Urine Occult Blood - Negative Bedside Urine pH 6.0 Bedside Urine Protein +/- 15 Bedside Urine Urobilinogen - Negative Bedside Urine Nitrite - Negative Bedside Urine Leukocytes - Negative Esterase Imaging Data CT scan - abdomen: Radiologist's impression: [place] [address] CT Scan Report Signed Patient: Carol Reyes LMR#: [id number] : 1965Acct:[id number] Age/Sex: 53 / FDate of Service: 07/22/18 Loc: ED Accession Number: [id number] Procedure: CT abdomen pelvis w con Ordering Provider: Veronique Puente D.O. PROCEDURE: CT ABDOMEN PELVIS W CON INDICATIONS: abdominal pain, recent abdominal surgery, dehis, peg tube TECHNIQUE: After the administration of intravenous contrast, 5 mm thick sections acquired from the diaphragm to the symphysis. 5 mm coronal and sagittal reformats were acquired. For radiation dose reduction, the following was used: automated exposure control, adjustment of mA and/or kV according to patient size. COMPARISON: [facility], CT, CT ABDOMEN W CON, 07/01/2018, 14:24. FINDINGS: Image quality: Excellent. ABDOMEN: Lung bases: Lung bases are clear. Heart size is normal. Solid organs: Liver is normal in size and enhancement. Gallbladder negative. Biliary system is non dilated. Pancreas enhances normally. Spleen is normal in size and enhancement. No adrenal nodules. Kidneys demonstrate normal size and enhancement, without hydronephrosis. Peritoneum and bowel: Incidental note of PEG tube. There multiple dilated small bowel loops filled with fluid and with scattered air-fluid levels. There is equalization of small bowel loops. The colon is relatively decompressed. Nodes and vessels: No retroperitoneal or mesenteric adenopathy by size criteria. Aorta and inferior vena cava are normal in size. Miscellaneous: Large midline ventral abdominal wall incision, as before PELVIS: Genitourinary: Bladder wall thickness is normal. Miscellaneous: No inguinal hernias or adenopathy. Bones: No suspicious bony lesions. No vertebral body compression fractures. IMPRESSION: Overall, redemonstration of dilated fluid and gas-filled central small bowel loops, slightly progressed since the prior study in keeping with persistent bowel obstruction. Exact transition point is not well-visualized. Elsewhere, no significant interval change since 07/01/18. Dictated by: Eloy Alexis M.D. on 07/22/2018 at 17:40 Approved by: Eloy Alexis M.D. on 07/22/2018 at 17:46 MDM Narrative Medical decision making narrative: Patient has recurrence of symptoms from yesterday. CT yesterday evening showed continued bowel obstruction potentially slightly worse. Patient has continued to have output from her of her G-tube. She has had vomiting here in the department. She is not had any other changes to her bowel movements and is having flatus. Lab work appears similar except for her lactate has elevated again to 2.2, she was at 3 yesterday came down to normal range after 2 L of fluid and is slightly elevated again today. Spoke with Dr. Roslyn fuchs for Dr. Levy, she evaluated patient in ED and plan for admission. Discharge Plan Departure Patient Disposition: Admitted as Observation Clinical Impression: Bowel obstruction, Vomiting Discharge Date/Time: 07/23/18 15:10 Interventions: ED Discharge Assessment Last Done: 07/23/18 15:10 Admit Date/Time: 07/23/18 13:51 Admit Provider: Kary Mcgowan
--- NOTE | 2018-07-23 13:56 | PM.HP.1 ---
History of Present Illness Date Patient Seen: 07/23/18 Time Patient Seen: 13:56 Chief complaint: sever abdominal pain and vomitting Narrative: Carol is an unfortunate 53-year-old lady who is well known to our service from prior visits. She has a history of recurrent bowel obstructions as well as an enterocutaneous fistula and has been managed at home with G-tube decompression and TPN. She reports that last evening she began experiencing abdominal pain with nausea and vomiting. When I ask her more pointedly about the pain, she says it is not really pain it is just that she has been dry heaving a lot and it has made her abdomen sore. Without the nausea, she really does not have abdominal pain. The infusion nurse came to her house today to draw some labs and help with TPN but found her extremely uncomfortable and waiting on her boyfriend to come and bring her to the emergency room. Apparently last evening the emergency room she received antiemetics and fluids and did well overnight. Carol said she actually felt pretty well until this morning when she started becoming nauseated once again. There was some concern that her G-tube was not working and then it was noted that she had had somewhere between 508 100 cc of output and it seemed to be working okay. Body denies any fever. She says she has been feeling okay and has been managing with her TPN. The fistula in the middle of her abdomen she says drains only very little. She does not keep it dressed but has a towel in case a little bit of drainage should come out. Patient History Medical History Anxiety disorder (Acute) Morbid obesity with BMI of 45.0-49.9, adult (Acute) Small bowel obstruction due to adhesions (Acute) HTN (hypertension) (Chronic) Migraine (Chronic) Postoperative ileus (Resolved) Surgical History Status post exploratory laparotomy (Acute) Status post appendectomy (Resolved) Status post hysterectomy (Resolved) Family History Mother Hypertension Diabetes mellitus Father Cancer Social History household members: significant other and family Smoking Status: Former smoker Family & Social History Family History Mother Hypertension Diabetes mellitus Father Cancer Social History: household members significant other,family Safety & Behavioral: Feels Safe in Current Yes Environment Been Physically Hurt or No Threatened By a Person Tobacco & Substance use: Smoking Status Former smoker alcohol intake frequency holiday/special occasion Substance Use Type does not use Meds Home Medications Medication Instructions Recorded Confirmed Type pantoprazole [Protonix] 40 mg PO DAILY #30 tab 05/10/18 07/12/18 Rx sennosides [Senokot] 8.6 mg PO BEDTIME #10 tab 05/10/18 07/12/18 Rx acetaminophen 650 mg PO Q6HR PRN #60 tab 07/09/18 07/23/18 Rx citalopram 20 mg PO DAILY #30 tab 07/09/18 07/23/18 Rx fentanyl 1 patch TRANSDERMAL Q72H #5 each 07/09/18 07/23/18 Rx lisinopril 10 mg PO DAILY #30 tab 07/09/18 07/12/18 Rx lorazepam 1 mg PO Q4HR PRN #30 tab 07/09/18 07/23/18 Rx morphine 15 mg immediate release 15 mg PO Q4-6H PRN #40 tab 07/09/18 07/23/18 Rx tablet ondansetron 4 mg SUBLINGUAL Q4HR PRN #30 tab 07/09/18 07/23/18 Rx Allergies Allergy/AdvReac Type Severity Reaction Status Date / Time Penicillins Allergy Intermediate Hives Verified 07/23/18 11:27 ranitidine [From Zantac] Allergy Intermediate Hives Verified 07/23/18 11:27 Review of Systems Review of Systems Carol denies any blood in the emesis. In fact she says she is producing very little emesis but a lot of dry heaving. She has not had any bloody stools. Has not passed flatus in several days but does occasionally pass a little. She denies any known sick contacts. Exam Vital Signs (past 8 hours): - 07/23/18 11:25 07/23/18 12:10 Temperature 97.8 F Pulse Rate 109 H 100 H Respiratory Rate 30 H 20 Blood Pressure 150/98 H Blood Pressure [Left Wrist] 171/109 H Pulse Oximetry 100 99 Oxygen Delivery Method Room Air Narrative Exam Narrative: Ill-appearing lady lying on her left side. Her G-tube is draining gastric fluid. She denies any abdominal pain at this time and repeat semi that her abdomen is sore from dry heaving but otherwise is not painful. HEENT: Normocephalic and atraumatic, pupils equal round and reactive to light accommodation with anicteric sclera Lungs: Clear to auscultation bilaterally Heart: Regular rate and rhythm without murmur rub or gallop Abdomen: Soft, few scattered bowel sounds. Minimal tenderness to palpation most specifically around the incision sites. Again the G-tube site is clean and seems to be working well. No abdominal distention can be appreciated. The enterocutaneous fistula is greatly improved. There is minimal skin irritation around the opening which is quite small. Minimal drainage. Extremities: No calf tenderness. No edema of either lower extremity. Full range of motion. Objective Labs Result Diagrams: 07/23/18 11:55 07/23/18 11:55 Labs: Laboratory Results - last 24 hr 07/23/18 07/23/18 07/23/18 11:55 11:55 11:55 WBC 6.4 RBC 3.80 L Hgb 10.4 L Hct 30.4 L MCV 79.9 L MCH 27.4 MCHC 34.4 RDW 18.7 H Plt Count 246 Neut % (Auto) 82.7 H Lymph % (Auto) 10.7 L [place] % (Auto) 5.3 Eos % (Auto) 0.5 L Baso % (Auto) 0.8 Neut # (Auto) 5200 Lymph # (Auto) 700 L [place] # (Auto) 300 Eos # (Auto) 0 Baso # (Auto) 100 Sodium 138 Potassium 3.4 Chloride 104 Carbon Dioxide 23 BUN 27 H Creatinine 0.70 Estimated GFR > 60.0 BUN/Creatinine Ratio 38.6 H Glucose 173 H Lactate 2.2 H Calcium 8.9 Total Bilirubin 0.3 AST 20 ALT 27 Alkaline Phosphatase 83 Total Protein 6.9 Albumin 3.4 L Globulin 3.5 Albumin/Globulin Ratio 1.[address] [address] [address] Scan Report Signed Patient: Carol Reyes MR#: [id number] : 1965 Acct:[id number] Age/Sex: 53 / F Date of Service: 07/22/18 Loc: ED Accession Number: [id number] Procedure: CT abdomen pelvis w con Ordering Provider: Veronique Puente D.O. PROCEDURE: CT ABDOMEN PELVIS W CON INDICATIONS: abdominal pain, recent abdominal surgery, dehis, peg tube TECHNIQUE: After the administration of intravenous contrast, 5 mm thick sections acquired from the diaphragm to the symphysis. 5 mm coronal and sagittal reformats were acquired. For radiation dose reduction, the following was used: automated exposure control, adjustment of mA and/or kV according to patient size. COMPARISON: [facility], CT, CT ABDOMEN W CON, 07/01/2018, 14:24. FINDINGS: Image quality: Excellent. ABDOMEN: Lung bases: Lung bases are clear. Heart size is normal. Solid organs: Liver is normal in size and enhancement. Gallbladder negative. Biliary system is non dilated. Pancreas enhances normally. Spleen is normal in size and enhancement. No adrenal nodules. Kidneys demonstrate normal size and enhancement, without hydronephrosis. Peritoneum and bowel: Incidental note of PEG tube. There multiple dilated small bowel loops filled with fluid and with scattered air-fluid levels. There is equalization of small bowel loops. The colon is relatively decompressed. Nodes and vessels: No retroperitoneal or mesenteric adenopathy by size criteria. Aorta and inferior vena cava are normal in size. Miscellaneous: Large midline ventral abdominal wall incision, as before PELVIS: Genitourinary: Bladder wall thickness is normal. Miscellaneous: No inguinal hernias or adenopathy. Bones: No suspicious bony lesions. No vertebral body compression fractures. IMPRESSION: Overall, redemonstration of dilated fluid and gas-filled central small bowel loops, slightly progressed since the prior study in keeping with persistent bowel obstruction. Exact transition point is not well-visualized. Elsewhere, no significant interval change since 07/01/18. Dictated by: Eloy Alexis M.D. on 07/22/2018 at 17:40 Approved by: Eloy Alexis M.D. on 07/22/2018 at 17:46 Assessment & Plan Assessment Narrative: 53-year-old lady with known severe abdominal adhesive disease and recurrent bowel obstructions. She presents with nausea and vomiting but without significant abdominal pain. Her CT scan is reassuring in that it is essentially unchanged for at least 2 weeks. There is certainly no evidence of a new intra-abdominal catastrophe. She is slightly volume contracted which is easily corrected. Plan Narrative: Admit to med surge for hydration and supportive care. Resume TPN. IV antiemetics. Watchful waiting.
--- NOTE | 2018-07-23 14:01 | P.HP_ITS ---
History of Present Illness Date Patient Seen: 07/23/18 Time Patient Seen: 13:56 Chief complaint: sever abdominal pain and vomitting Narrative: Carol is an unfortunate 53-year-old lady who is well known to our service from prior visits. She has a history of recurrent bowel obstructions as well as an enterocutaneous fistula and has been managed at home with G-tube decompression and TPN. She reports that last evening she began experiencing abdominal pain with nausea and vomiting. When I ask her more pointedly about the pain, she says it is not really pain it is just that she has been dry heaving a lot and it has made her abdomen sore. Without the nausea, she really does not have abdominal pain. The infusion nurse came to her house today to draw some labs and help with TPN but found her extremely uncomfortable and waiting on her boyfriend to come and bring her to the emergency room. Apparently last evening the emergency room she received antiemetics and fluids and did well ov ernight. Carol said she actually felt pretty well until this morning when she started becoming nauseated once again. There was some concern that her G-tube was not working and then it was noted that she had had somewhere between 508 100 cc of output and it seemed to be working okay. Body denies any fever. She says she has been feeling okay and has been managing with her TPN. The fistula in t he middle of her abdomen she says drains only very little. She does not keep it dressed but has a towel in case a little bit of drainage should come out. Patient History Medical History Anxiety disorder (Acute) Morbid obesity with BMI of 45.0-49.9, adult (Acute) Small bowel obstruction due to adhesions (Acute) HTN (hypertension) (Chronic) Migraine (Chronic) Postoperative ileus (Resolved) Surgical History Status post exploratory laparotomy (Acute) Status post appendectomy (Resolved) Status post hysterectomy (Resolved) Family History Mother Hypertension Diabetes mellitus Father Cancer Social History household members: significant other and family Smoking Status: Former smoker Family & Social History Family History Mother Hypertension Diabetes mellitus Father Cancer Social History: household members significant other,family Safety & Behavioral: Feels Safe in Current Yes Environment Been Physically Hurt or No Threatened By a Person Tobacco & Substance use: Smoking Status Former smoker alcohol intake frequency holiday/special occasion Substance Use Type does not use Meds Home Medications Medication Instructions Recorded Confirmed Type pantoprazole [Protonix] 40 mg PO DAILY #30 tab 05/10/18 07/12/18 Rx sennosides [Senokot] 8.6 mg PO BEDTIME #10 tab 05/10/18 07/12/18 Rx acetaminophen 650 mg PO Q6HR PRN #60 tab 07/09/18 07/23/18 Rx citalopram 20 mg PO DAILY #30 tab 07/09/18 07/23/18 Rx fentanyl 1 patch TRANSDERMAL Q72H #5 each 07/09/18 07/23/18 Rx lisinopril 10 mg PO DAILY #30 tab 07/09/18 07/12/18 Rx lorazepam 1 mg PO Q4HR PRN #30 tab 07/09/18 07/23/18 Rx morphine 15 mg immediate release 15 mg PO Q4-6H PRN #40 tab 07/09/18 07/23/18 Rx tablet ondansetron 4 mg SUBLINGUAL Q4HR PRN #30 tab 07/09/18 07/23/18 Rx Allergies Allergy/AdvReac Type Severity Reaction Status Date / Time Penicillins Allergy Intermediate Hives Verified 07/23/18 11:27 ranitidine [From Zantac] Allergy Intermediate Hives Verified 07/23/18 11:27 Review of Systems Review of Systems Carol denies any blood in the emesis. In fact she says she is producing very little emesis but a lot of dry heaving. She has not had any bloody stools. Has not passed flatus in several days but does occasionally pass a little. She denies any known sick contacts. Exam Vital Signs (past 8 hours): - 07/23/18 11:25 07/23/18 12:10 Temperature 97.8 F Pulse Rate 109 H 100 H Respiratory Rate 30 H 20 Blood Pressure 150/98 H Blood Pressure [Left Wrist] 171/109 H Pulse Oximetry 100 99 Oxygen Delivery Method Room Air Narrative Exam Narrative: Ill-appearing lady lying on her left side. Her G-tube is draining gastric fluid. She denies any abdominal pain at this time and repeat semi that her abdomen is sore from dry heaving but otherwise is not painful. HEENT: Normocephalic and atraumatic, pupils equal round and reactive to light accommodation with anicteric sclera Lungs: Clear to auscultation bilaterally Heart: Regular rate and rhythm without murmur rub or gallop Abdomen: Soft, few scattered bowel sounds. Minimal tenderness to palpation most specifically around the incision sites. Again the G-tube site is clean and seems to be working well. No abdominal distention can be appreciated. The enterocutaneous fistula is greatly improved. There is minimal skin irritation a round the opening which is quite small. Minimal drainage. Extremities: No calf tenderness. No edema of either lower extremity. Full range of motion. Objective Labs Result Diagrams: 07/23/18 11:55 07/23/18 11:55 Labs: Laboratory Results - last 24 hr 07/23/18 07/23/18 07/23/18 11:55 11:55 11:55 WBC 6.4 RBC 3.80 L Hgb 10.4 L Hct 30.4 L MCV 79.9 L MCH 27.4 MCHC 34.4 RDW 18.7 H Plt Count 246 Neut % (Auto) 82.7 H Lymph % (Auto) 10.7 L [place] % (Auto) 5.3 Eos % (Auto) 0.5 L Baso % (Auto) 0.8 Neut # (Auto) 5200 Lymph # (Auto) 700 L [place] # (Auto) 300 Eos # (Auto) 0 Baso # (Auto) 100 Sodium 138 Potassium 3.4 Chloride 104 Carbon Dioxide 23 BUN 27 H Creatinine 0.70 Estimated GFR > 60.0 BUN/Creatinine Ratio 38.6 H Glucose 173 H Lactate 2.2 H Calcium 8.9 Total Bilirubin 0.3 AST 20 ALT 27 Alkaline Phosphatase 83 Total Protein 6.9 Albumin 3.4 L Globulin 3.5 Albumin/Globulin Ratio 1.[address] [address] [address] Scan Report Signed Patient: Carol Reyes MR#: [id number] : 1965 Acct:[id number] Age/Sex: 53 / F Date of Service: 07/22/18 Loc: ED Accession Number: [id number] Procedure: CT abdomen pelvis w con Ordering Provider: Veronique Puente D.O. PROCEDURE: CT ABDOMEN PELVIS W CON INDICATIONS: abdominal pain, recent abdominal surgery, dehis, peg tube TECHNIQUE: After the administration of intravenous contrast, 5 mm thick sections acquired from the diaphragm to the symphysis. 5 mm coronal and sagittal reformats were acquired. For radiation dose reduction, the following was used: automated exposure control, adjustment of mA and/or kV according to patient size. COMPARISON: [facility], CT, CT ABDOMEN W CON, 07/01/2018, 14:24. FINDINGS: Image quality: Excellent. ABDOMEN: Lung bases: Lung bases are clear. Heart size is normal. Solid organs: Liver is normal in size and enhancement. Gallbladder negative. Biliary system is non dilated. Pancreas enhances normally. Spleen is normal in size and enhancement. No adrenal nodules. Kidneys demonstrate normal size and enhancement, without hydronephrosis. Peritoneum and bowel: Incidental note of PEG tube. There multiple dilated small bowel loops filled with fluid and with scattered air-fluid levels. There is equalization of small bowel loops. The colon is relatively decompressed. Nodes and vessels: No retroperitoneal or mesenteric adenopathy by size criteria. Aorta and inferior vena cava are normal in size. Miscellaneous: Large midline ventral abdominal wall incision, as before PELVIS: Genitourinary: Bladder wall thickness is normal. Miscellaneous: No inguinal hernias or adenopathy. Bones: No suspicious bony lesions. No vertebral body compression fractures. IMPRESSION: Overall, redemonstration of dilated fluid and gas-filled central small bowel loops, slightly progressed since the prior study in keeping with persistent bowel obstruction. Exact transition point is not well-visualized. Elsewhere, no significant interval change since 07/01/18. Dictated by: Eloy Alexis M.D. on 07/22/2018 at 17:40 Approved by: Eloy Alexis M.D. on 07/22/2018 at 17:46 Assessment & Plan Assessment Narrative: 53-year-old lady with known severe abdominal adhesive disease and recurrent bowel obstructions. She presents with nausea and vomiting but without significant abdominal pain. Her CT scan is reassuring in that it is essentially unchanged for at least 2 weeks. There is certainly no evidence of a new intra-abdominal catastrophe. She is slightly volume contracted which is easily corrected. Plan Narrative: [place] [facility] [place]. Resume TPN. IV antiemetics. Watchful waiting.
--- NOTE | 2018-07-23 15:29 | PC.NURSE ---
Day shift: On unit from ED at approx 1500. She is ambulatory. ABD dressing saturated and needs to be changed. Output in g-tube bag dark greenish brown with approx 350ml in it. Pt c/o ABD pain at this time. PICC line remains in place. Oriented to room and call light. HFR for now.
[2018-07-23] MEDS: fentaNYL 25 MCG/PATCH TOP (15:45)
[2018-07-23] MEDS: DEXTROSE 5%-0.45% NS 1,000 ML 125 ML IV ×2 (15:46→23:34)
[2018-07-23 16:02] LABS: Reflexed Lactate in 2 Hours Y
[2018-07-23 16:40] LABS: Lactate 2HR (Lactic Acid Rflx) 1.1 mmol/L (0.7-2.1)
[2018-07-23] MEDS: HYDROMORPHONE 1 MG INJ 0.5 MG IV ×2 (17:20→20:58)
[2018-07-23] MEDS: FAT EMULSIONS 50 GM/250 ML EMULSION IV (18:06)
[2018-07-23] MEDS: AA 5 %/CALCIUM/LYTES/DEXT 20 % 1,000 ML with MULTIVITAMIN 10 ML, TRACE ELEMENTS 1 ML 42.125 ML IV (18:06)
--- NOTE | 2018-07-23 18:43 | PC.NURSE ---
Kimberlee shift note: Patient awake, alert, and pleasant. C/O pain to abdomen, described as an ache, generalized. No nausea. Tolerating ice chips. IVF infusing, resumed TPN and lipids as per home regimen. 10 cm healing incisional wound to mid abdomen extending to umbilicus, with a draining fistula, approximately 2 cm diameter. Incision pink with mild drainage, non odorous. Above umbilicus healed incision approximately 5 cm. Dressing changed, wound cleaned. Stoma cleaned and placed a 4 x 4 sponge gauze to Gtube to left upper quadrant. Continue NPO. Oriented to room, environment, and plan of care.
[2018-07-23] MEDS: LORazepam 2 MG/ML SYRINGE 1 MG IV (23:44)
[2018-07-24] VITALS (9 sets, daily range): BP systolic 96–156; BP diastolic 56–85; PULSE 80–86; RESP 16–19; TEMP 36.4–36.8; O2SAT 96–99
--- NOTE | 2018-07-24 01:36 | PC.NURSE ---
Addendum entered by Lisa Triplett R.N. 07/24/18 06:51: Complains of 7/10 abdominal pain; medicated with Dilaudid and warm blanket applied for comfort. Original Note: Addendum entered by Lisa Triplett R.N. 07/24/18 04:37: Weight is 96.5kg which is a discrepancy from admission weight but bed was not at 0 when checked so was rezeroed. Original Note: Addendum entered by Lisa Triplett R.N. 07/24/18 04:35: Medicated with Ativan for 6/10 abdominal pain and sleep. Reminded Dilaudid is available again at 0618. Original Note: Addendum entered by Lisa Triplett R.N. 07/24/18 02:19: Up to bathroom. States pain is still 7/10 so administered IV Dilaudid. Original Note: 2350 Patient seen and assessed. Is alert and oriented. Breath sounds diminished but CTA with RA sat of 95%. HRR. BP elevated at 153/77. Complains of slight nausea but no emesis; medicated with Ativan for both sleep and nausea per patient request. BT present and abdomen is soft. Denies dysuria, frequency, urgency or incontinence. Is able to turn herself but is up with SBA. Gastrostomy tube to gravity drainage with green/brown liquid in bag. Dressing to lower abdomen is CDI. Currently NPO except for ice and is receiving TPN + Lipids. States pain is 7/10 but too early for Dilaudid so felt Ativan would help her sleep; is aware she can have Dilaudid again at 0100 or if needs something sooner MD can be contacted. CBG 112. HOB is elevated. Refusing SCD's Fall risk score is moderate; calls for assist appropriately and significant other is in room.
[2018-07-24] MEDS: HYDROMORPHONE 1 MG INJ 0.5 MG IV ×2 (02:18→06:48)
[2018-07-24] MEDS: LORazepam 2 MG/ML SYRINGE 1 MG IV ×3 (04:30→16:46)
[2018-07-24 06:24] LABS: Add Manual Diff / Slide Review NO; Basophils Absolute Auto 100 /uL (0-100); Basophils Percent Auto 1.8 % (0-2); Eosinophils Absolute Auto 200 /uL (0-450); Eosinophils Percent Auto 3.6 % (2-4); Hematocrit 28.9 % (36-46); Hemoglobin 9.3 g/dL (12.0-16.0); Lymphocytes Absolute Auto 1500 /uL (1100-4500); Mean Corpuscular HGB Conc 32.1 % (30-36); Mean Corpuscular Hemoglobin 27.7 PG (26-34); Mean Corpuscular Volume 86.1 fL (80-100); Monocytes Absolute Auto 500 /uL (0-900); Monocytes Percent Auto 9.5 % (3-14); Neutrophils Absolute Auto 2600 /uL (1500-7000); Neutrophils Percent Auto 54.1 % (50-75); Platelet Count 225 X10^3/uL (150-400); Red Blood Cell Count 3.36 X10^6/uL (4.0-5.2); Red Cell Distribution Width 18.8 % (11.6-14.8); White Blood Cell Count 4.8 X10^3/uL (4.5-11.0)
[2018-07-24 06:30] LABS: BUN Creatinine Ratio 22.9 (6-22); Blood Urea Nitrogen 16 mg/dL (7-17); Calcium 8.4 mg/dL (8.4-10.2); Carbon Dioxide 26 mmol/L (22-32); Chloride 103 mmol/L (98-107); Estimated Glomerular Filt Rate > 60.0 mL/min (>60); Glucose 138 mg/dL (70-100); HEMOLYSIS < 15 (0-50); Magnesium 1.6 mg/dL (1.6-2.3); Potassium 3.2 mmol/L (3.4-5.1); Sodium 137 mmol/L (137-145)
[2018-07-24] MEDS: INSULIN ASPART 100 UNIT/ML INSULN PEN SUBCUT ×2 (06:43→11:58)
[2018-07-24] MEDS: DEXTROSE 5%-0.45% NS 1,000 ML 125 ML IV (07:13)
[2018-07-24] MEDS: PANTOPRAZOLE 40 MG VIAL IV (08:39)
[2018-07-24] MEDS: ENOXAPARIN 40 MG/0.4 ML SYRINGE SUBCUT (08:39)
[2018-07-24] MEDS: HYDROMORPHONE PCA (6MG/30ML) 6 MG/30 ML PCA.VIAL IV ×2 (10:40→22:13)
[2018-07-24] MEDS: CITALOPRAM 20 MG TABLET PO (10:47)
[2018-07-24] MEDS: LISINOPRIL 10 MG TABLET PO (10:48)
--- NOTE | 2018-07-24 10:54 | PC.NURSE ---
Day Shift- Pt A&OX4, able to make needs known using call light. Anxious this Am regarding pain management. Pain reported to lower abd cramping. Prn Ativan given at 0835 for anxiety and nausea. Nausea settled upon reassessment. NPO except ice chips. Dr. Levy paged at 0943 for change in pain management. Order for BANANA EXPERT rec'd and set up at bedside with pt instructions on proper use at 1040. Pain at that time was 7/10. Telephone order rec'd for pt to have oral meds with sips of water and to clamp G-tube for 1 hour after administration. G-tube then clamped at 1045. Pt wants to rest now and plan for PICC dressing change early this afternoon.
--- NOTE | 2018-07-24 15:04 | PM.PN.1 ---
Subjective Date Patient Seen: 07/24/18 Time Patient Seen: 15:04 Interval history: Patient was complaining of persistent crampy abdominal pain in the periumbilical area not well controlled with intermittent intravenous Dilaudid. Denies any further nausea or vomiting. No further dry heaving. Dilaudid TAPER OPERATOR was instituted this morning and she is experiencing much better analgesia this afternoon. Denies flatus or bowel function per rectum. Remains concerned that the gastrostomy tube is not functioning. No subjective fever chills. No chest pain or shortness of breath. No significant drainage from the midline incision. Exam Vital Signs (past 8 hours): - 07/24/18 08:00 07/24/18 08:40 07/24/18 10:48 Temperature 98.1 F Pulse Rate 80 86 Respiratory Rate 16 Blood Pressure 145/85 H 146/69 H Pulse Oximetry 98 99 07/24/18 12:11 Temperature 97.9 F Pulse Rate 84 Respiratory Rate 16 Blood Pressure 132/77 Pulse Oximetry 97 Oxygen Delivery Method Room Air Oxygen Flow Rate 0 Narrative Exam Narrative: Well-nourished well-developed moderately obese female lying comfortably in bed in no acute distress. Alert oriented x3 Regular rate and rhythm. She has had no fevers since admission. No wheezes Abdomen is soft and nondistended. She is minimally tender in the central portion of the abdomen but certainly without guarding or rebound. I changed her midline wound dressing, and she has excellent granulation and of relatively superficial wound at this point. In fact, the wound has closed even further since my visit with her in the office last week. The residual fistula at the superior aspect of the open wound adjacent to the umbilicus has no significant drainage. Skin is without erythema or cellulitis. Gastrostomy tube site is clean and intact. I easily flushed the tube with 60 cc of saline irrigation which she tolerated quite well without pain or other problems. Tube was replaced to gravity drainage. Extremities show no clubbing or cyanosis Objective Labs Result Diagrams: 07/24/18 06:08 07/24/18 06:08 Labs: Laboratory Results - last 24 hr 07/23/18 07/24/18 07/24/18 16:22 06:08 06:08 WBC 4.8 RBC 3.36 L Hgb 9.3 L Hct 28.9 L MCV 86.1 D MCH 27.7 MCHC 32.1 RDW 18.8 H Plt Count 225 Neut % (Auto) 54.1 D Lymph % (Auto) 31.0 D [place] % (Auto) 9.5 Eos % (Auto) 3.6 Baso % (Auto) 1.8 Neut # (Auto) 2600 Lymph # (Auto) 1500 [place] # (Auto) 500 Eos # (Auto) 200 Baso # (Auto) 100 Sodium 137 Potassium 3.2 L Chloride 103 Carbon Dioxide 26 BUN 16 Creatinine 0.70 Estimated GFR > 60.0 BUN/Creatinine Ratio 22.9 H Glucose 138 H Lactate 1.1 Calcium 8.4 Magnesium 1.6 Electrolytes are unremarkable other than mild hypokalemia. Hemoglobin is stable. She has no white blood cell count of significance or left shift. Lactate is normal. I also personally reviewed her CT scan from admission which shows no significant difference as previously documented. Findings would suggest partial small bowel obstruction however. Assessment & Plan Assessment Narrative: 53-year-old female with abdominal pain likely secondary to persistent partial small bowel obstruction, but clinically she does not appear to be much different than at the time of her discharge a couple of weeks ago. In fact, she continues to heal nicely with no evidence of significant fistula output. Gastrostomy tube appears to be working well. I will continue current G-tube management as well as TPN with lipids. Change IV fluids. No evidence of infection requiring antibiotics or other intervention. Continue wet-to-dry saline dressing changes at least once daily. I will obtain a Gastrografin small-bowel follow-through tomorrow per the gastrostomy tube. Plan add methylene blue dye to the Gastrografin contrast in order to assess any fistula output. If tomorrow study is unremarkable then I will begin to transition her back to her usual home regimen with cycled TPN in anticipation of discharge. I discussed this with her. All questions were answered to her satisfaction, and she voiced understanding. Orders were written.
[2018-07-24] MEDS: KCL 20 MEQ IN NS 1,000 ML 60 MEQ IV (17:39)
[2018-07-24] MEDS: FAT EMULSIONS 50 GM/250 ML EMULSION IV (18:43)
[2018-07-24] MEDS: AA 5 %/CALCIUM/LYTES/DEXT 20 % 1,000 ML with MULTIVITAMIN 10 ML, TRACE ELEMENTS 1 ML 42.125 ML IV (18:43)
[2018-07-25] VITALS (8 sets, daily range): BP systolic 99–149; BP diastolic 53–83; PULSE 79–90; RESP 14–18; TEMP 36.3–36.8; O2SAT 90–97
--- NOTE | 2018-07-25 | DI.RAD.S_ITS ---
PROCEDURE: [place] SMALL BOWEL FOLLOW THROUGH INDICATIONS: SBO, vomiting COMPARISON: [facility], , [place] SMALL BOWEL FOLLOW THROUGH, 05/28/2018, 11:51. [facility], , [place] SMALL BOWEL FOLLOW THROUGH, 05/05/2018, 10:55. FINDINGS: KUB: Preprocedural unmanned aircraft systems roboticist film demonstrates a normal bowel gas pattern. No suspicious abdominal calcifications. Visualized solid organ contours appear normal. No suspicious bony abnormalities. A gastrostomy tube is in place at the left upper quadrant. The water-soluble oral contrast utilized included methylene blue. Small bowel: There is abnormally prolonged 6 hour transit time of barium through the small bowel, without entering the colon. Small bowel dilatation persists as has been previously the case.. Small bowel loops are of normal caliber throughout. Mucosal folds are smooth and of normal thickness. No strictures, intraluminal masses, or extrinsic mass effects are noted. The terminal ileum is identified, and is normal in morphology. IMPRESSION: The transit time from contrast entering the stomach through a gastrostomy tube to completion of this study is at least 6 hours, and at no point over the course of the examination was contrast seen to extend into the colon. The oral contrast utilized was a combination of water-soluble Gastrografin and methylene blue to assist in detecting fistulous communication to the midline wound. Small bowel dilatation is present, moderate in severity, without evidence of pneumatosis. No free air or extravasation of contrast into the peritoneal space is seen. Findings were called to Dr. Levy, surgeon caring for the patient, and discussed in detail. Dictated by: Delroy Flores M.D. on 07/25/2018 at 16:10 Approved by: Delroy Flores M.D. on 07/25/2018 at 16:17
[2018-07-25] MEDS: LORazepam 2 MG/ML SYRINGE 1 MG IV ×5 (00:57→22:40)
--- NOTE | 2018-07-25 02:49 | PC.NURSE ---
Pt with nausea @ 1645, medicated with ativan 1mg IVP, effective. BT+, flatus+, G-tube draining to gravity, changed ABD drsg, due to leakage of tube connection. Reinforced tubing with skin prep and fabric tape, changed linen, gown, and T-drsg under G-tube. PASCALE dbl PICC with TPN @ 42.1, and NS + 20KCL @ 60 infusing. CBG Q-6hr 1800-81, 0000-93. SBA FWW to BRP to void clear yellow urine. 99%RA, LS clear. NPO status with ice chips ok. Significant other rooming in, bed alarm on for safety.
[2018-07-25] MEDS: HYDROMORPHONE PCA (6MG/30ML) 6 MG/30 ML PCA.VIAL IV ×3 (06:13→22:43)
--- NOTE | 2018-07-25 06:37 | PC.NURSE ---
SPINNING AND WINDING SUPERVISOR/TORCH SOLDERER eMar documentation: Assumed care at 0300. Patient sleeping most of shift, using TORCH SOLDERER as needed. Patient using 0.8mg dilaudid this shift. Previous shift was cleared with 1.4 mg used per TORCH SOLDERER history. This is not reflected in the eMar. Patient denies additional complaint.
[2018-07-25] MEDS: ONDANSETRON 4 MG/2 ML INJ IV (08:59)
[2018-07-25] MEDS: PANTOPRAZOLE 40 MG VIAL IV (09:10)
[2018-07-25] MEDS: ENOXAPARIN 40 MG/0.4 ML SYRINGE SUBCUT (09:11)
[2018-07-25] MEDS: KCL 20 MEQ IN NS 1,000 ML 60 MEQ IV (09:35)
--- NOTE | 2018-07-25 09:53 | PC.NURSE ---
Morning oral medications not given. Pt going for procedure for G tube which will not be clamped as necessary for oral meds.
[2018-07-25] MEDS: INSULIN ASPART 100 UNIT/ML INSULN PEN SUBCUT (13:33)
--- NOTE | 2018-07-25 14:50 | PC.NURSE ---
Pt has been in process of her gastric study today having been taken to diagnostics twice for imaging with contrast. Morning PO meds were not administered as clamping the tube for absorption would not have been conducive to her study. Pt was reported to have had 1000mls emesis while in transport between and at approx. 1100. Pt then had a repeat espisode of 1000mls of emesis of liquid stool. Dr. Levy was notified of emesis and placed order for scopolamine patch which was applied at approx. 1500
[2018-07-25] MEDS: SCOPOLAMINE 1 PATCH TOP (14:55)
--- NOTE | 2018-07-25 18:10 | P.PN_ITS ---
Subjective Date Patient Seen: 07/25/18 Time Patient Seen: 18:05 Interval history: Patient is seen twice today including this morning and within the last 15 min. She has completed Gastrografin small-bowel follow-through via her gastrostomy tube throughout the course of the day today. She currently is quite nauseated. In fact, she had several episodes of bilious emesis during the exam. Gastrostomy tube is been returned to gravity drainage but she continues to feel slightly distended. No output per rectum. Complaining of some crampy abdominal pain throughout the course of the test today. No chest pain or shortness of breath. Exam Vital Signs (past 8 hours): - 07/25/18 12:32 07/25/18 16:00 Temperature 97.3 F L 97.9 F Pulse Rate 90 86 Respiratory Rate 16 18 Blood Pressure 135/80 149/83 H Pulse Oximetry 95 90 L Oxygen Delivery Method Room Air Oxygen Flow Rate 0 Narrative Exam Narrative: Patient lying in bed somewhat somnolent and obviously does not appear well but in no acute distress. Alert oriented x3 Regular rate and rhythm Abdomen is slightly more distended when compared to yesterday's exam. However, she remains soft and mildly diffusely tender throughout the entire central abdomen. No masses. No guarding or rebound. Gastrostomy tube is draining a small amount of dark bilious fluid. Her wound is granulating well and has no evidence of increased drainage with today's study. Methylene blue was placed in the contrast as well and there is no evidence of any blue drainage in the dressing. Objective Labs Result Diagrams: 07/24/18 06:08 07/24/18 06:08 Labs: I personally reviewed the small-bowel follow-through study and discussed the findings with the staff radiologist, Dr. Flores. She has distended loops of small bowel with progression of the contrast from the stomach to the distal small bowel where it abruptly ends and does not traverse into the colon. No extravasation. No evidence of fistula. Small-bowel wall thickening is not present. No free air on weaver narrow fabrics films. Gastrostomy tube is in good position within the stomach. No extravasation from around the tube. Assessment & Plan Assessment & Plan narrative: 53-year-old female with recurrent progressive small bowel obstruction which I believe resulted in her recent crampy abdominal pain and nausea with dry heaving that necessitated this admission. At this point she continues to heal well along the midline wound with ongoing closure of the low output enterocutaneous fistula. At this stage we will continue to treat her symptomatic we and leave the gastrostomy tube to drainage. 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 Continue TPN. Repeat laboratory studies tomorrow. Check follow-up three view abdominal series tomorrow in the hope that some of the contrast will traverse through the point of obstruction. I discussed all this with the patient in detail. All questions were answered to her satisfaction, and she voiced understanding. Case reviewed with the attending nurse this evening, Joanne. Orders were written.
[2018-07-25] MEDS: AA 5 %/CALCIUM/LYTES/DEXT 20 % 1,000 ML with MULTIVITAMIN 10 ML, TRACE ELEMENTS 1 ML 42.125 ML IV (18:29)
--- NOTE | 2018-07-25 22:49 | PC.NURSE ---
Patient was having difficulty controlling her pain level today as she was consistently sitting at a 6/10. Patients bowel sounds were diminished in her lower quadrants but were very loud in the upper quadrants. No abnormal sounds were noted in the lungs. Lung sounds were diminished. Patients moral seemed to be high as she was telling jokes and was fairly talkative. Mouth was really dry and color was slightly pale on the tongue and gums. Abdominal wound seems to be healing very well and is pink on wound edges. Patient has been vomited stool twice during this shift and patient is continuously nauseous.
[2018-07-26] VITALS (10 sets, daily range): BP systolic 102–154; BP diastolic 64–98; PULSE 79–97; RESP 16–18; TEMP 36.3–37.1; O2SAT 95–98; BMI 35.2
--- NOTE | 2018-07-26 | DI.RAD.S_ITS ---
PROCEDURE: XR ACUTE ABDOMEN SERIES INDICATIONS: Small-bowel obstruction TECHNIQUE: One view chest and two views of the abdomen were acquired. COMPARISON: [facility], CT, CT ABDOMEN PELVIS W CON, 07/22/2018, 16:16. [facility], RF, [place] SMALL BOWEL FOLLOW THROUGH, 07/25/2018, 9:41. [facility], CR, XR ACUTE ABDOMEN SERIES, 05/28/2018, 5:24. FINDINGS: Surgical changes and devices: There is a right PICC with the tip in SVC. Chest: Lungs are clear. Heart size is normal. No pleural effusions. No pneumoperitoneum. Abdomen: There is a catheter in the area of the left ostomy. Small bowel loops contain oral contrast and are distended measuring up to 4.6 cm. There are multiple air-fluid levels. No suspicious calcifications. Visualized solid organ contours appear normal. Bones: No suspicious bony lesions. IMPRESSION: Persistent small bowel obstruction. Dictated by: Nirali Canchola M.D. on 07/26/2018 at 12:13 Approved by: Nirali Canchola M.D. on 07/26/2018 at 12:16
--- NOTE | 2018-07-26 00:10 | PC.NURSE ---
Pt with gereralized weakness r/t been to imaging for gastric study with contrast, twice during AM shift, which she reportedly had 2 episodes of 1000mL emesis. [id number], no intervention needed, BT+ flatus +, ABD drsg changed, 3 2x2's to incision, 2 4x4's on top secured with paper tape and mesh panties, G-tube drsg CDI, G- tube with minimal drainage 25-30mL in bag, tubing secured with fabric tape and holding up from yesterday. 1830- Pt with 500mL stool emesis, and nausea, medicated with ativan 1mg IVP, which was effective. PASCALE dbl PICC with TPN infusing @ 42.1 and NS + 40KCL @ 60. SBA to BRP to void dark green urine r/t contrast given for gastric study. Dilaudid IT OPERATIONS ANALYST 0.2/11/15 for pain chronic 11/19, 3mg used this shift. 93% RA, LS clear, pt appears pale and weak, but pleasant and cooperative with care. NPO status with ice chips ok. Bed alarm on for safety and uses call light appropriately.
[2018-07-26] MEDS: ONDANSETRON 4 MG/2 ML INJ IV ×3 (00:15→09:45)
[2018-07-26] MEDS: KCL 20 MEQ IN NS 1,000 ML 60 MEQ IV ×2 (02:09→18:11)
[2018-07-26] MEDS: LORazepam 2 MG/ML SYRINGE 1 MG IV ×5 (02:10→21:57)
[2018-07-26 06:17] LABS: Add Manual Diff / Slide Review NO; Basophils Absolute Auto 100 /uL (0-100); Basophils Percent Auto 0.9 % (0-2); Eosinophils Absolute Auto 100 /uL (0-450); Eosinophils Percent Auto 1.5 % (2-4); Hematocrit 31.9 % (36-46); Hemoglobin 10.6 g/dL (12.0-16.0); Lymphocytes Absolute Auto 1400 /uL (1100-4500); Mean Corpuscular HGB Conc 33.4 % (30-36); Mean Corpuscular Hemoglobin 27.6 PG (26-34); Mean Corpuscular Volume 82.6 fL (80-100); Monocytes Absolute Auto 600 /uL (0-900); Monocytes Percent Auto 8.9 % (3-14); Neutrophils Absolute Auto 4600 /uL (1500-7000); Neutrophils Percent Auto 67.7 % (50-75); Platelet Count 292 X10^3/uL (150-400); Red Blood Cell Count 3.86 X10^6/uL (4.0-5.2); Red Cell Distribution Width 18.5 % (11.6-14.8); White Blood Cell Count 6.8 X10^3/uL (4.5-11.0)
[2018-07-26 06:27] LABS: Alanine Aminotransferase 37 IU/L (9-52); Albumin 3.2 g/dL (3.5-5.0); Albumin Globulin Ratio 0.9 (1.0-2.8); Alkaline Phosphatase 77 U/L (38-126); Aspartate Aminotransferase 33 IU/L (14-36); BUN Creatinine Ratio 25.7 (6-22); Bilirubin Total 0.3 mg/dL (0.2-1.3); Blood Urea Nitrogen 18 mg/dL (7-17); Calcium 9.2 mg/dL (8.4-10.2); Carbon Dioxide 31 mmol/L (22-32); Chloride 104 mmol/L (98-107); Estimated Glomerular Filt Rate > 60.0 mL/min (>60); Globulin 3.5 g/dL (1.7-4.1); Glucose 106 mg/dL (70-100); HEMOLYSIS < 15 (0-50); Magnesium 1.8 mg/dL (1.6-2.3); Potassium 4.1 mmol/L (3.4-5.1); Sodium 141 mmol/L (137-145); Total Protein 6.7 g/dL (6.3-8.2)
--- NOTE | 2018-07-26 07:43 | PC.NURSE ---
Addendum entered by Mae Armstrong R.N. 07/27/18 06:51: LATE ENTRY. CAP UNABLE TO BE CHANGED DURING MORNING BLOOD DRAW ON 07/26. CAP IS STUCK ON. HEMOSTATS NOT USED R/T RISK OF DAMAGING PICC. Original Note: ASSUMED CARE OF PT AT 2300. PT RESTING IN BED DURING HAND-0FF REPORT. ZOFRAN AND ATIVAN FOR N/V. TPN AND IVF INFUSING PER ORDERS. DRSG TO G-TUBE CHANGED THIS SHIFT. SMALL AMT OF DRAINAGE IN COLLECTION BAG. USING [employer] CRM DEVELOPER APPROPRIATELY. CALLING FOR NEEDS. HAND-OFF REPORT GIVEN TO BRYEC PACHECO.
[2018-07-26] MEDS: PANTOPRAZOLE 40 MG VIAL IV (08:11)
[2018-07-26] MEDS: ENOXAPARIN 40 MG/0.4 ML SYRINGE SUBCUT (08:11)
--- NOTE | 2018-07-26 09:46 | P.PN_ITS ---
Subjective Date Patient Seen: 07/26/18 Time Patient Seen: 09:38 Interval history: Patient with ongoing nausea and resulting headache but no further emesis overnight. She continues to have some crampy abdominal pain and subjective mild distension since the small-bowel follow-through done yesterday. She has passed nothing per rectum including flatus. No dysuria or hematuria. No chest pain or shortness of breath. Exam Vital Signs (past 8 hours): - 07/26/18 06:00 07/26/18 08:08 Temperature 97.5 F L 98.7 F Pulse Rate 79 91 H Respiratory Rate 18 16 Blood Pressure 133/78 154/84 H Pulse Oximetry 98 97 Oxygen Delivery Method Room Air Oxygen Flow Rate 0 Narrative Exam Narrative: Patient is seen and examined with the attending nurse She remains afebrile with no tachycardia or hypotension. Urine output is adequate. Gastrostomy tube output has not been significant despite her vomiting. What fl uid there is in the drainage bag is bilious however. No blood. No crackles or wheezes Abdomen is soft but mildly distended. She is not tympanitic. She is appropriately tender throughout the central abdomen but certainly without guarding or rebound. Gastrostomy tube site is clean. Output is as above. Lower midline abdominal wound continues to granulate and epithelialize nicely with ongoing closure. The wound is quite superficial at this point. There is no significant drainage from the area. Certainly nothing to suggest succus or blue tinged contrast that was administered yesterday. No pus. Extremities show no clubbing or cyanosis Objective Labs Result Diagrams: 07/26/18 06:00 07/26/18 06:00 Labs: Laboratory Results - last 24 hr 07/26/18 07/26/18 06:00 06:00 WBC 6.8 RBC 3.86 L Hgb 10.6 L Hct 31.9 L MCV 82.6 D MCH 27.6 MCHC 33.4 RDW 18.5 H Plt Count 292 Neut % (Auto) 67.7 Lymph % (Auto) 21.0 L [place] % (Auto) 8.9 Eos % (Auto) 1.5 L Baso % (Auto) 0.9 Neut # (Auto) 4600 Lymph # (Auto) 1400 [place] # (Auto) 600 Eos # (Auto) 100 Baso # (Auto) 100 Sodium 141 Potassium 4.1 Chloride 104 Carbon Dioxide 31 BUN 18 H Creatinine 0.70 Estimated GFR > 60.0 BUN/Creatinine Ratio 25.7 H Glucose 106 H Calcium 9.2 Phosphorus 5.0 H Magnesium 1.8 Total Bilirubin 0.3 AST 33 ALT 37 Alkaline Phosphatase 77 Total Protein 6.7 Albumin 3.2 L Globulin 3.5 Albumin/Globulin Ratio 0.9 L I have reviewed her abdominal x-rays from this morning. Compared to yesterday small-bowel follow-through, especially the 4 hr films, there is not significant difference in the sense that the contrast remains distributed throughout the entire small bowel with no transition to the colon at all. No free air. There continued to be dilated loops of small bowel throughout with air-fluid levels. Stomach remains mildly dilated. Lung beckman are clear. The small bowel loops, however, are somewhat less dilated compared to yesterday's x-rays. Contrast is more dilute. Assessment & Plan Assessment & Plan narrative: 53-year-old female with recurrent significant small-bowel obstruction now complicated by nausea and vomiting after small-bowel follow-through yesterday. Her gastrostomy tube is not fully draining her stomach, especially when she is supine. However with her current symptoms she is not fully able to sit upright in the bed her ambulate which I believe would potentially assist in decompressing her stomach. We discussed the insertion of a nasogastric tube, but she is quite hesitant to proceed in that manner. Fortunately her bowel gas pattern is slightly improved from yesterday and she is not vomiting at the moment. We will therefore continue our current management. TPN has been ordered with current formula since her electrolytes and renal function are well within normal limits at this point. Continue local wound care as I believe the fistula is completely closed or at the worse nearly completely closed. Clearly she is not a surgical candidate at this point given the absolute hostile nature of her abdomen and what I suspect would be frozen bowel loops. Fortunately she has no evidence of infectious complications, perforation, or bowel ischemia. I am hopeful that her current symptoms will eventually resolve and we can return to her usual home regimen with which she was doing quite well prior to readmission several days ago. I suspect that she may eventually require reoperation long-term as previously discussed with the patient, but this clearly would need to be done at a tertiary level facility and at some point, in my opinion, many months from now once the inflammatory component has resolved and scar tissue has matured intra-abdominally. For now we will continue the current management and monitor her closely. Orders were written. Discussed all the above with the patient and the attending nurse today. Questions were answered to the patient's satisfaction, and she voiced understanding.
--- NOTE | 2018-07-26 10:21 | PC.NURSE ---
Morning oral meds not given due to increased nausea. Pt received zofran, will try oral meds later in the day
[2018-07-26] MEDS: LISINOPRIL 10 MG TABLET PO (13:11)
[2018-07-26] MEDS: CITALOPRAM 20 MG TABLET PO (13:11)
[2018-07-26] MEDS: fentaNYL 25 MCG/PATCH TOP (13:27)
[2018-07-26] MEDS: AA 5 %/CALCIUM/LYTES/DEXT 20 % 1,000 ML with MULTIVITAMIN 10 ML, TRACE ELEMENTS 1 ML 42.125 ML IV (18:01)
[2018-07-26] MEDS: FAT EMULSIONS 50 GM/250 ML EMULSION IV (18:02)
--- NOTE | 2018-07-26 19:02 | PC.NURSE ---
Addendum entered by Meghana Resendiz R.N. 07/26/18 22:19: Pt resting at intervals. Med at 2150 w/ativan for nausea. TPN & Lipids infusing via pump as per orders. PICC intact/patent Relatively uneventful evening. Call light w/in reach/ bed alarm on for pt safety. Continue w/plan of care. Original Note: Pt visiting w/family. ARCHITECTURE INSTRUCTOR effective for discomfort. Ativan @ 1700 effective for nausea. PASCALE PICC intact/patent. TPN & lipids up @ 1800 w/o incidence. Call light w/in reach.
--- NOTE | 2018-07-26 20:37 | PC.NURSE ---
Addendum entered by Shayne House 07/26/18 23:02: 6/10 for pain is due to abdominal cramps and the healing sight in her lower abdomen. patient experiences more pain when moving. Original Note: Patient today seems much less sedated. patient reports how she is frustrated about how she cannot get well. patient also seemed like she was in high spirits today as well. Patient has reported nausea. Bowel sounds were diminished in the lower abdominals while the upper quadrants were active. Respiratory and heart sounds were without adventitious sounds. Skin around the feet seems a little tight but there was no imprinting edema on on the feet. Patient is still reporting a 6/10 for pain
[2018-07-26] MEDS: HYDROMORPHONE PCA (6MG/30ML) 6 MG/30 ML PCA.VIAL IV (22:09)
[2018-07-27] VITALS (8 sets, daily range): BP systolic 103–144; BP diastolic 59–87; PULSE 75–90; RESP 16–20; TEMP 36.6–36.8; O2SAT 94–99
[2018-07-27] MEDS: ONDANSETRON 4 MG/2 ML INJ IV ×2 (00:39→09:23)
--- NOTE | 2018-07-27 02:07 | PC.NURSE ---
Addendum entered by Mae Armstrong R.N. 07/27/18 06:46: VERY SCANT DRAINAGE FROM G-TUBE, NOT ENOUGH TO MEASURE. NAUSEA W/O EMESIS THROUGH-OUT SHIFT, MEDICATING PER AUG. Original Note: ASSUMED CARE OF PT ON 07/26 AT 2300. PT SLEEPING DURING BEDSIDE HAND-OFF. TPN, LIPID, IVF, AND ARC WELDING MACHINE OPERATOR PER ORDERS. DRSGS C/D/I. G-TUBE WITH SCANT DRAINAGE. URINE LIGHT GREEN. REPORTS NAUSEA W/O EMESIS THIS SHIFT THUS FAR. CALLING APPROPRIATELY FOR NEEDS. CALL LIGHT WITHIN REACH. BED ALARM ON.
[2018-07-27] MEDS: LORazepam 2 MG/ML SYRINGE 1 MG IV ×4 (02:17→20:42)
[2018-07-27] MEDS: SODIUM CHLORIDE 0.9% FLUSH 10 ML IV ×2 (02:17→06:24)
[2018-07-27] MEDS: PANTOPRAZOLE 40 MG VIAL IV (09:23)
[2018-07-27] MEDS: ENOXAPARIN 40 MG/0.4 ML SYRINGE SUBCUT (09:23)
[2018-07-27] MEDS: KCL 20 MEQ IN NS 1,000 ML 60 MEQ IV (11:10)
[2018-07-27] MEDS: LORazepam 2 MG/ML SYRINGE IV (12:35)
--- NOTE | 2018-07-27 13:38 | PM.PN.1 ---
Subjective Date Patient Seen: 07/27/18 Time Patient Seen: 13:39 Interval history: Patient continues to feel poorly. In fact, she states she is feeling worse than she did several days ago earlier in the week. Continues to have nausea almost continuously. She had 1400 cc of bilious emesis prior to my arrival as reported by the nursing staff. She continues to have subjective distention and crampy abdominal pain throughout the entire abdomen. Gastrostomy tube is not draining much. Notes no significant wound drainage. No dysuria or hematuria. Overall, she is quite distraught and depressed regarding her current clinical situation. Exam Vital Signs (past 8 hours): - 07/27/18 07:34 07/27/18 09:30 07/27/18 12:20 Temperature 98.1 F 98.1 F Pulse Rate 82 90 Respiratory Rate 16 20 Blood Pressure 139/87 132/86 Pulse Oximetry 96 94 95 Oxygen Delivery Method Room Air Oxygen Flow Rate 0 Narrative Exam Narrative: Afebrile and hemodynamically stable. Patient lying in bed somnolent but in no acute distress. She appears mildly acutely ill. She is complaining of nausea at the time of my visit. Alert oriented x3. She is tearful throughout the entire interview. Regular rate and rhythm. No wheezes Abdomen remains mildly distended but not particularly tympanitic. She is diffusely tender to palpation but certainly with no guarding or rebound. Wound dressing is clean and intact. I did not change this today. Gastrostomy tube remains in place draining a scant amount of bilious fluid. 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 She has quite a hostile abdomen and, in my opinion, is not a surgical candidate for quite some time in the absence of a true intra-abdominal catastrophe. Fortunately she has no evidence of such at the moment. Nevertheless, she continues to have nausea and vomiting of bilious emesis due to the obstruction. The gastrostomy tube is not adequately decompressing her. I discussed this with her in detail, and I reiterated recommendation for nasogastric tube insertion. I explained the reasoning behind it as well as the process once again. Obviously she is hesitant to have this reinserted due to discomfort. However, after lengthy discussion she agreed to proceed and she was premedicated with intravenous Ativan 2 mg as well as her Dilaudid SECURITY PROFESSIONAL. With the assistance of the staff nurse, Deja, I inserted an 18 [place] nasogastric tube without difficulty via the left nostril. Position was confirmed by auscultation and we immediately received 800 cc of bilious fluid into the canister. Tube was secured in position with tape to the nose. Patient actually tolerated this quite well. I am hopeful that the nasogastric tube will adequately decompress the upper gastrointestinal tract and alleviate her nausea and vomiting. Furthermore, it will reduce the risk of rebecca aspiration with vomiting although I explained will not entirely eliminate the risk. I am also hopeful that the decompression of the upper gastrointestinal tract will help to resolve the small-bowel obstruction that persists currently. Again, goal of therapy this admission is to return her to her status that she was enjoying in the home environment up to last week with cycle home TPN and wound care. Continue current TPN formula for her moderate protein calorie malnutrition. 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 I will repeat her laboratory studies tomorrow along with abdominal x-rays. We discussed potential transfer to a tertiary center for 2nd surgical opinion, but I did mention that it is unlikely that they would recommend surgery under the current conditions for the reasons given above. She had a multitude of questions which I answered to her satisfaction. We will continue the current care otherwise and monitor. Overall, we will simply have to be patient and support her through this process over the upcoming months. She voiced understanding. Orders were written.
--- NOTE | 2018-07-27 14:00 | PC.NURSE ---
Addendum entered by Deja Gill R.N. 07/27/18 14:48: CLIENT DEVELOPMENT MANAGER Dilaudid 1.4mg used for shift totals. Original Note: Day Shift- Pt nauseated this AM, Zofran IV prn given at 0920, pt vomited approx 1400mls of brown foul smelling fluid at 0938. Ativan IV prn given at 1010. Scopolamine patch present behind right ear. TPN and IVF infusing well to PASCALE PICC. Ativan IV prn given at 1235 2mg per verbal order by Dr. Levy at bedside prior to NGT insertion. NGT inserted through left nare by Dr. Levy with this writers assist. Air by syringe placed into NGT opening by Dr. Levy and this senior writer auscultated for large amount of gurgle sounds to stomach. Approx 800mls of brown fluid emptied. Plan for NGT to low LIS at 50-55. CLIENT DEVELOPMENT MANAGER Dilaudid in place, effective pain management. Lower abd dressing CDI. Gastrostomy tube clamped at 1250 per verbal order by Dr. Levy.
[2018-07-27] MEDS: TETRACAINE/BENZOCAINE/BUTAMBEN (CETACAINE) BOTTLE 1 SPRAY TOP ×2 (14:43→19:19)
--- NOTE | 2018-07-27 17:29 | DI.RAD.S_ITS ---
PROCEDURE: XR CHEST 1V INDICATIONS: Ng placement TECHNIQUE: One view of the chest was acquired. COMPARISON: [facility], CR, XR CHEST FOR PICC 1V, 07/06/2018, 16:25. FINDINGS: Surgical changes and devices: There is a nasogastric tube coiled within the stomach. A right upper extremity PICC line redemonstrated with the tip at the cavoatrial junction. Lungs and pleura: Lungs are clear. No pleural effusions or pneumothorax. Mediastinum: Mediastinal contours appear normal. Heart size is normal. Bones and chest wall: No suspicious bony lesions. Overlying soft tissues appear unremarkable. IMPRESSION: 1. Nasogastric tube extends into the stomach. Dictated by: Curtis Linton M.D. on 07/27/2018 at 18:49 Approved by: Curtis Linton M.D. on 07/27/2018 at 18:50
[2018-07-27] MEDS: AA 5 %/CALCIUM/LYTES/DEXT 20 % 1,000 ML with MULTIVITAMIN 10 ML, TRACE ELEMENTS 1 ML 42.125 ML IV (18:22)
[2018-07-27] MEDS: HYDROMORPHONE PCA (6MG/30ML) 6 MG/30 ML PCA.VIAL IV (22:18)
[2018-07-28] VITALS (10 sets, daily range): BP systolic 110–142; BP diastolic 64–84; PULSE 70–86; RESP 13–18; TEMP 36.6–37.1; O2SAT 94–98
--- NOTE | 2018-07-28 | DI.RAD.S_ITS ---
PROCEDURE: XR ABDOMEN 3V INDICATIONS: NG tube placement, small bowel obstruction TECHNIQUE: One view chest and two views of the abdomen were acquired. COMPARISON: None. FINDINGS: Surgical changes and devices: Abdominal drain projects over the left upper abdomen as before. A nasogastric tube is in place extending below the level of the diaphragm with the distal tip projecting over the left upper abdomen. Chest: Lungs are clear. Heart size is normal. No pleural effusions. No pneumoperitoneum. Abdomen: Multiple loops of dilated small bowel seen throughout the abdomen with scattered air in the colon. No suspicious calcifications. Visualized solid organ contours appear normal. Bones: No suspicious bony lesions. IMPRESSION: 1. Nasogastric tube placement as above. 2. Numerous dilated bowel loops which may represent small bowel obstruction versus ileus. Dictated by: Negrito Hanna M.D. on 07/28/2018 at 8:04 Approved by: Negrito Hanna M.D. on 07/28/2018 at 8:19
[2018-07-28] MEDS: HYDROMORPHONE PCA (6MG/30ML) 6 MG/30 ML PCA.VIAL IV ×2 (00:29→20:12)
[2018-07-28] MEDS: LORazepam 2 MG/ML SYRINGE 1 MG IV ×5 (01:28→22:40)
[2018-07-28] MEDS: KCL 20 MEQ IN NS 1,000 ML 60 MEQ IV (04:04)
[2018-07-28 06:28] LABS: Add Manual Diff / Slide Review NO; Basophils Absolute Auto 0 /uL (0-100); Basophils Percent Auto 0.2 % (0-2); Eosinophils Absolute Auto 300 /uL (0-450); Eosinophils Percent Auto 5.2 % (2-4); Hematocrit 28.5 % (36-46); Hemoglobin 9.5 g/dL (12.0-16.0); Lymphocytes Absolute Auto 1600 /uL (1100-4500); Lymphocytes Percent Auto 28.3 % (25-40); Mean Corpuscular HGB Conc 33.3 % (30-36); Mean Corpuscular Volume 84.2 fL (80-100); Monocytes Absolute Auto 500 /uL (0-900); Monocytes Percent Auto 9.1 % (3-14); Neutrophils Absolute Auto 3300 /uL (1500-7000); Neutrophils Percent Auto 57.2 % (50-75); Platelet Count 243 X10^3/uL (150-400); Red Blood Cell Count 3.38 X10^6/uL (4.0-5.2); Red Cell Distribution Width 17.9 % (11.6-14.8); White Blood Cell Count 5.7 X10^3/uL (4.5-11.0)
[2018-07-28 06:36] LABS: BUN Creatinine Ratio 28.6 (6-22); Blood Urea Nitrogen 20 mg/dL (7-17); Calcium 8.4 mg/dL (8.4-10.2); Carbon Dioxide 31 mmol/L (22-32); Chloride 100 mmol/L (98-107); Estimated Glomerular Filt Rate > 60.0 mL/min (>60); Glucose 104 mg/dL (70-100); HEMOLYSIS < 15 (0-50); Potassium 3.7 mmol/L (3.4-5.1); Sodium 138 mmol/L (137-145)
--- NOTE | 2018-07-28 07:18 | PC.NURSE ---
NOC Shift: Stable shift until this AM pt accidently pulled out NG tube while blowing nose. Discussed advantages of having NG replaced and pt agreed to have tube replaced. 16F NG placed to left nares w/o difficulty placed to LIS and pale brown, yellow output. Will confirm w/xray.
--- NOTE | 2018-07-28 10:26 | PM.PN.1 ---
Subjective Date Patient Seen: 07/28/18 Time Patient Seen: 09:26 Interval history: Patient inadvertently removed her nasogastric tube earlier this morning while blowing her nose. Tube was replaced per the attending nurse at that time without difficulty, although she inserted a 16 [place] tube rather than the 18 Micronesian tube I had placed yesterday. Patient currently denies any nausea or vomiting. Her crampy abdominal pain has subsided significantly. Of note, she states she is passing a small amount of flatus but no stool per rectum. G-tube remains clamped after placement of nasogastric tube yesterday. No significant wound drainage. In fact, her dressing has not been changed for over 24 hr now. No subjective fever or chills. No chest pain or shortness of breath. Exam Vital Signs (past 8 hours): - 07/28/18 06:33 07/28/18 09:30 Temperature 98.5 F Pulse Rate 84 Respiratory Rate 16 Blood Pressure 142/84 H Pulse Oximetry 97 97 Oxygen Delivery Method Room Air Oxygen Flow Rate 0 Narrative Exam Narrative: Patient seen and examined with the assistance of the attending nurseJenny Patient remains afebrile with no tachycardia and normal blood pressure. Adequate urine output. Nasogastric tube output has been approximately 900 cc of bilious fluid since insertion yesterday. There is a scant amount of only about 100 cc in the suction canister currently since it was reinserted early this morning as above. Personally flushed the nasogastric tube with 60 cc of saline and pop the blue port with air several times. The tube is functioning well and by auscultation is in good position in the stomach. Chest is clear to auscultation bilaterally with regular rate and rhythm. No murmurs, gallops, rubs. No crackles or wheezes Abdomen is soft and much less distended. She is minimally tender to palpation in certainly has no guarding or rebound. Gastrostomy tube site is clean, dry, and intact. I personally changed her midline abdominal wound dressing which shows excellent granulation tissue and a relatively superficial wound. The edges continue to epithelialize well. Sterile swabs were used the probe the superior and inferior wound tracks. 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 However, there does appear to be a small amount of succus expressed after the swab is inserted. The inferior tract does not appear to be part of the fistula and has no evidence of drainage or pus. No evidence of dehiscence. Extremities show no clubbing, cyanosis, or edema Objective Labs Result Diagrams: 07/28/18 06:18 07/28/18 06:18 Labs: Laboratory Results - last 24 hr 07/28/18 07/28/18 06:18 06:18 WBC 5.7 RBC 3.38 L Hgb 9.5 L Hct 28.5 L MCV 84.2 MCH 28.0 MCHC 33.3 RDW 17.9 H Plt Count 243 Neut % (Auto) 57.2 Lymph % (Auto) 28.3 [place] % (Auto) 9.1 Eos % (Auto) 5.2 H Baso % (Auto) 0.2 Neut # (Auto) 3300 Lymph # (Auto) 1600 [place] # (Auto) 500 Eos # (Auto) 300 Baso # (Auto) 0 Sodium 138 Potassium 3.7 Chloride 100 Carbon Dioxide 31 BUN 20 H Creatinine 0.70 Estimated GFR > 60.0 BUN/Creatinine Ratio 28.6 H Glucose 104 H Calcium 8.4 Abdominal x-ray studies were done this morning after replacement of the nasogastric tube. The current tube was in good position in the stomach. No free air. Stomach appears to be decompressed appropriately. There are some residual air-fluid levels with dilated loops of small bowel throughout the abdomen, but the dilatation and air-fluid levels arm much diminished compared to previous films. She actually has some air in the colon. Contrast appears to have passed or at least been suctioned accordingly through the nasogastric tube. No pulmonary infiltrates. 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 Her moderate protein calorie malnutrition remains stable with ongoing TPN support. Electrolytes are appropriate today and we will continue the current formula along with lipids. Eventually we will plan to return to her usual formula and volume as per the home regimen prior to readmission. I would plan to cycle the TPN 12 hr on and 12 hr off at home once again. Continue nasogastric tube decompression for now she appears to be responding appropriately. NPO except ice and and occasional popsicle for oral comfort. Out of bed as tolerated. Continue wet-to-dry dressings to the midline wound. I anticipate that the very low output fistula below ventrally close spontaneously. I suspect she requires hospitalization for at least several more days until the nasogastric tube can be adequately discontinued and she returns to her intermittent gastric decompression with the existing gastrostomy tube. 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 In my opinion, she is not a surgical candidate for quite some time given the significant hostile inflammatory and scar tissue intra-abdominally. All questions were answered to her satisfaction, and she voiced understanding. Orders were written.
--- NOTE | 2018-07-28 10:35 | P.PN_ITS ---
Subjective Date Patient Seen: 07/28/18 Time Patient Seen: 09:26 Interval history: Patient inadvertently removed her nasogastric tube earlier this morning while blowing her nose. Tube was replaced per the attending nurse at that time without difficulty, although she inserted a 16 [place] tube rather than the 18 [place] tube I had placed yesterday. Patient currently denies any nausea or vomiting. Her crampy abdominal pain has subsided significantly. Of note, she states she is passing a small amount of flatus but no stool per rectum. G-tube remains clamped after placement of nasogastric tube yesterday. No significant wound drainage. In fact, her dressing has not been changed for o rajeev 24 hr now. No subjective fever or chills. No chest pain or shortness of breath. Exam Vital Signs (past 8 hours): - 07/28/18 06:33 07/28/18 09:30 Temperature 98.5 F Pulse Rate 84 Respiratory Rate 16 Blood Pressure 142/84 H Pulse Oximetry 97 97 Oxygen Delivery Method Room Air Oxygen Flow Rate 0 Narrative Exam Narrative: Patient seen and examined with the assistance of the attending nurseJenny Patient remains afebrile with no tachycardia and normal blood pressure. Adequate urine output. Nasogastric tube output has been approximately 900 cc of bilious fluid since insertion yesterday. There is a scant amount of only about 100 cc in the suction canister currently since it was reinserted early this morning as above. Personally flushed the nasogastric tube with 60 cc of saline and pop the blue port with air several times. The tube is functioning well and by auscultation is in good position in the stomach. Chest is clear to auscultation bilaterally with regular rate and rhythm. No murmurs, gallops, rubs. No crackles or wheezes Abdomen is soft and much less distended. She is minimally tender to palpation in certainly has no guarding or rebound. Gastrostomy tube site is clean, dry, a nd intact. I personally changed her midline abdominal wound dressing which shows excellent granulation tissue and a relatively superficial wound. The edges continue to epithelialize well. Sterile swabs were used the probe the superior and inferior wound tracks. 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 However, there does appear to be a small amount of succus expressed after the swab is inserted. The inferior tract does not appear to be part of the fistula and has no evidence of drainage or pus. No evidence of dehiscence. Extremities show no clubbing, cyanosis, or edema Objective Labs Result Diagrams: 07/28/18 06:18 07/28/18 06:18 Labs: Laboratory Results - last 24 hr 07/28/18 07/28/18 06:18 06:18 WBC 5.7 RBC 3.38 L Hgb 9.5 L Hct 28.5 L MCV 84.2 MCH 28.0 MCHC 33.3 RDW 17.9 H Plt Count 243 Neut % (Auto) 57.2 Lymph % (Auto) 28.3 [place] % (Auto) 9.1 Eos % (Auto) 5.2 H Baso % (Auto) 0.2 Neut # (Auto) 3300 Lymph # (Auto) 1600 [place] # (Auto) 500 Eos # (Auto) 300 Baso # (Auto) 0 Sodium 138 Potassium 3.7 Chloride 100 Carbon Dioxide 31 BUN 20 H Creatinine 0.70 Estimated GFR > 60.0 BUN/Creatinine Ratio 28.6 H Glucose 104 H Calcium 8.4 Abdominal x-ray studies were done this morning after replacement of the n asogastric tube. The current tube was in good position in the stomach. No free air. Stomach appears to be decompressed appropriately. There are some residual air-fluid levels with dilated loops of small bowel throughout the abdomen, but the dilatation and air-fluid levels arm much diminished compared to previous films. She actually has some air in the colon. Contrast appears to have passed or at least been suctioned accordingly through the nasogastric tube. No pulmonary infiltrates. 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 Her moderate protein calorie malnutrition remains stable with ongoing TPN support. Electrolytes are appropriate today and we will continue th e current formula along with lipids. Eventually we will plan to return to her usual formula and volume as per the home regimen prior to readmission. I would plan to cycle the TPN 12 hr on and 12 hr off at home once again. Continue nasogastric tube decompression for now she appears to be responding appropriately. NPO except ice and and occasional popsicle for oral comfort. Out of bed as tolerated. Continue wet-to-dry dressings to the midline wound. I anticipate that the very low output fistula below ventrally close spontaneously. I suspect she requires hospitalization for at least several more days until the nasogastric tube can be adequately discontinued and she returns to her intermi ttent gastric decompression with the existing gastrostomy tube. 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 In my opinion, she is not a surgical candidate for quite some time given the significant hostile inflammatory and scar tissue intra-abdominally. All questions were answered to her satisfaction, and she voiced understanding. Orders were written.
[2018-07-28] MEDS: CITALOPRAM 20 MG TABLET PO (10:40)
[2018-07-28] MEDS: ENOXAPARIN 40 MG/0.4 ML SYRINGE SUBCUT (10:40)
[2018-07-28] MEDS: PANTOPRAZOLE 40 MG VIAL IV (10:41)
[2018-07-28] MEDS: INSULIN ASPART 100 UNIT/ML INSULN PEN SUBCUT (12:57)
--- NOTE | 2018-07-28 15:02 | CM.DPNOTE ---
Received VM from [facility], left on Monday. Reviewed chart. Placed call to Mary at [facility] to relay update per Dr Levy's note; pt is expected to remain admitted at least through the w/e. She will return home w/resumption of TPN -cycle 12 on and 12 off. Mary appreciative and will check in w/ PUBLIC HEALTH DIETITIAN Monday. MARCO
[2018-07-28] MEDS: FAT EMULSIONS 50 GM/250 ML EMULSION IV (18:15)
[2018-07-28] MEDS: AA 5 %/CALCIUM/LYTES/DEXT 20 % 1,000 ML with MULTIVITAMIN 10 ML, TRACE ELEMENTS 1 ML 42.125 ML IV (18:16)
[2018-07-28] MEDS: TETRACAINE/BENZOCAINE/BUTAMBEN (CETACAINE) BOTTLE 1 SPRAY TOP (22:40)
[2018-07-29] VITALS (9 sets, daily range): BP systolic 114–159; BP diastolic 65–88; PULSE 81–93; RESP 14–20; TEMP 36.6–37.6; O2SAT 90–98
[2018-07-29] MEDS: LORazepam 2 MG/ML SYRINGE 1 MG IV ×5 (02:37→22:43)
[2018-07-29] MEDS: ENOXAPARIN 40 MG/0.4 ML SYRINGE SUBCUT (09:45)
[2018-07-29] MEDS: PANTOPRAZOLE 40 MG VIAL IV (09:45)
--- NOTE | 2018-07-29 11:41 | PM.PN.1 ---
Subjective Date Patient Seen: 07/29/18 Time Patient Seen: 11:41 Interval history: Patient complaining of some mild nausea at the time of my visit. However she is much improved in that regard and has had no further emesis since placement of the nasogastric tube. I popped the blue port with air several times and started continuous suction at approximately 65-70 mm Hg with immediate drainage of approximately 200-300 cc of mildly bilious fluid. She achieves some relief with this maneuver. Otherwise she is not having any significant pain other than some occasional mid abdominal cramping. Pain is well controlled with her fentanyl patch and Dilaudid QUALITY ASSURANCE ANALYST. Major complaint remains sore throat irritation from the nasogastric tube. G-tube remains clamped. She is having no dysuria or hematuria. No subjective fever or chills. No chest pain or shortness of breath. Denies any significant wound drainage. The dressing that is currently in place is the 1 that I personally applied yesterday. Patient is ambulating with assistance without any difficulty. Exam Vital Signs (past 8 hours): - 07/29/18 04:20 07/29/18 08:00 07/29/18 09:35 Temperature 98.6 F 98.5 F Pulse Rate 81 81 Respiratory Rate 16 18 Blood Pressure 114/67 127/65 Pulse Oximetry 95 97 97 Oxygen Delivery Method Room Air Oxygen Flow Rate 0 Narrative Exam Narrative: Patient is seen and examined with the attending nurseGinny Patient is lying in bed in no acute distress. Alert oriented x3. She is somewhat calmer and more relaxed today and is certainly not as somnolent as yesterday. Sclera nonicteric Regular rate and rhythm. No wheezes Abdomen is much softer and less distended. She is minimally tender to palpation today. Certainly no guarding or rebound. No masses. Gastrostomy tube site is clean and intact. Midline abdominal wound continues to close nicely with good granulation. There is minimal drainage on the gauze, but it does appear to be consistent with a small amount of succus from a still patent enterocutaneous fistula. Obviously, the fistulas low output however. Extremities show no clubbing or cyanosis Objective Labs Result Diagrams: 07/28/18 06:18 07/28/18 06:18 Labs: No new laboratory or radiographic studies for review today. Her blood sugar overnight did dropped to 50 however. She is not receiving any insulin in the TPN. Furthermore, she received only 1 unit of subcutaneous insulin on her sliding scale protocol. Assessment & Plan Assessment & Plan narrative: 53-year-old female with multiple recurrent small bowel obstruction. Recent small-bowel follow-through and symptoms were consistent with complete obstruction but no evidence of ischemic bowel at that time. She has since responded nicely to nasogastric tube decompression, and she is now passing some flatus intermittently. No stool per rectum. Overall she is improved but still has evidence of partial small-bowel obstruction given the nature of the nasogastric tube output even though it is much less voluminous. No evidence of infectious complications. I will stop the sliding scale insulin and simply check twice daily fingerstick glucose levels. She has not been symptomatic even with her blood sugar of 50 however. Continue her current analgesia. Continue current wound care. I personally change the dressing today which he tolerated quite well. At some point I will likely need to obtain a fistulogram to better define her anatomy as well as potential patency of the fistula tract itself. Given the low output I suspect that the fistula is below the point of obstruction somewhere in the small bowel. Continue current TPN. I do not wish to return to cycling the TPN at this point given the mild hypoglycemia. If this is stable then we will try to return to her home formula with the cycle schedule that she was previously using before this admission. If the NGT output continues to decline then we will give her some trials of clamping while returning the gastrostomy tube to gravity drainage. Hopefully we will be able to discontinue the NG within the next couple of days or so. Repeat basic metabolic panel tomorrow. Discussed all the above with the patient in detail. All questions were answered to her satisfaction, and she voiced understanding. Orders were written.
[2018-07-29] MEDS: fentaNYL 25 MCG/PATCH TOP (14:22)
[2018-07-29] MEDS: AA 5 %/CALCIUM/LYTES/DEXT 20 % 1,000 ML with MULTIVITAMIN 10 ML, TRACE ELEMENTS 1 ML 42.125 ML IV (17:59)
[2018-07-29] MEDS: HYDROMORPHONE PCA (6MG/30ML) 6 MG/30 ML PCA.VIAL IV (21:06)
[2018-07-30] VITALS (9 sets, daily range): BP systolic 102–130; BP diastolic 56–74; PULSE 82–95; RESP 14–18; TEMP 36.7–37.7; O2SAT 90–96
[2018-07-30] MEDS: LORazepam 2 MG/ML SYRINGE 1 MG IV ×4 (03:36→21:27)
[2018-07-30] MEDS: KCL 20 MEQ IN NS 1,000 ML 60 MEQ IV ×2 (03:43→22:57)
[2018-07-30] MEDS: HYDROMORPHONE PCA (6MG/30ML) 6 MG/30 ML PCA.VIAL IV ×3 (06:16→17:08)
[2018-07-30 06:46] LABS: Blood Urea Nitrogen 14 mg/dL (7-17); Calcium 8.6 mg/dL (8.4-10.2); Carbon Dioxide 30 mmol/L (22-32); Chloride 97 mmol/L (98-107); Estimated Glomerular Filt Rate > 60.0 mL/min (>60); Glucose 110 mg/dL (70-100); HEMOLYSIS < 15 (0-50); Potassium 3.7 mmol/L (3.4-5.1); Sodium 133 mmol/L (137-145)
[2018-07-30] MEDS: CITALOPRAM 20 MG TABLET PO (09:04)
[2018-07-30] MEDS: ENOXAPARIN 40 MG/0.4 ML SYRINGE SUBCUT (09:04)
[2018-07-30] MEDS: LISINOPRIL 10 MG TABLET PO (09:05)
[2018-07-30] MEDS: PANTOPRAZOLE 40 MG VIAL IV (09:05)
--- NOTE | 2018-07-30 12:43 | P.PN_ITS ---
Subjective Date Patient Seen: 07/30/18 Time Patient Seen: 12:36 Interval history: Patient has no nausea or vomiting today. Pain is still well controlled but requires SENIOR TECHNICAL SUPPORT ENGINEER since she is NPO status. Nasogastric tube remains in place draining approximately 300 cc per shift of bilious fluid. Patient passing flatus however. No stool per rectum. No significant drainage from the lower midline wound, but she is now having some progressive pain at the abdominal wall near the umbilicus and the superior aspect of her scar. Exam Vital Signs (past 8 hours): - 07/30/18 08:00 07/30/18 08:26 07/30/18 12:00 Temperature 98.1 F 98.6 F Pulse Rate 86 84 Respiratory Rate 16 16 Blood Pressure 118/56 L 123/74 Pulse Oximetry 94 92 94 Oxygen Delivery Method Room Air Oxygen Flow Rate 0 Narrative Exam Narrative: Well-nourished well-developed female lying comfortably in bed in no acute distress. Alert oriented x3. Appears mildly depressed as anticipated however. Sclera nonicteric Regular rate and rhythm Abdomen is soft and nondistended. She is tender focally at the superior aspect of the midline abdominal incision where the skin has actually closed. However, there is some erythema and fullness. The dressing placed yesterday remains in the lower midline wound and is clean, dry, and intact. However, I probed the fistula track at the superior aspect of the open wound and immediately received expression of rebecca pus. Specimen was sent for culture. Area was drained and packing was placed. She tolerated this quite well. Extremities show no clubbing or cyanosis Objective Labs Result Diagrams: 07/28/18 06:18 07/30/18 06:30 Labs: Laboratory Results - last 24 hr 07/30/18 06:30 Sodium 133 L Potassium 3.7 Chloride 97 L Carbon Dioxide 30 BUN 14 Creatinine 0.70 Estimated GFR > 60.0 BUN/Creatinine Ratio 20.0 Glucose 110 H Calcium 8.6 Assessment & Plan Assessment & Plan narrative: 53-year-old female with multiple recurrent small bowel obstruction now slowly improving with conservative measures. We will attempt to clamp the NG tube periodically and replaced the gastrostomy tube to gravity drainage with the hope that we can discontinue the nasogastric tube over the next 1-2 days. She is otherwise afebrile and hemodynamically stable. She is tolerating TPN well. We will continue TPN, but resume her usual home formula with the addition of sodium chloride as previously prescribed. I have discussed this with pharmacy. No planned cycle the TPN currently but we will increase the volume as per her previous home regimen. She will benefit from the additional sodium chloride as well based on her electrolyte panel today. She now has evidence of wound infection which I suspect is likely the maturation of the new enterocutaneous fistula or the existing fistula that is simply expressing itself as different portion of the scar. I suspect this is a result of the partial or near complete small bowel obstruction. We will await cultures but in the interim I will begin empiric antibiotic therapy for enteric organisms, especially staff and Enterococcus. She likely has some anaerobic component as well given the bowel obstruction. Therefore vancomycin and clindamycin were ordered. Repeat laboratory studies tomorrow. We will have to await maturation of the wound, but I advised her that she may require return to the operating room to open the incision and achieve adequate drainage of the abscess if this progresses or does not resolve accordingly. Out of bed and ambulate as much as possible. I will discontinue the saline wet-to-dry dressing changes at the inferior aspect of the incision at this point since it is essentially closed at that level. If she does have increased patency of the new enterocutaneous fistula we will simply have to await maturation and monitor output. May require a pouching system if the output is significant along with fistulogram as previously noted. Will continue to monitor for now. I discussed all the above with the patient in detail. All questions were answered to her satisfaction, and she voiced understanding. Orders were written.
[2018-07-30] MEDS: CLINDAMYCIN 600 MG/50 ML PIGGYBACK 50 MG IV ×2 (14:03→21:28)
--- NOTE | 2018-07-30 14:33 | CM.DPC ---
DCP Cont: Per Dr. Levy today, pt still with NG tube and hopeful to discontinue within the next 1-2 days. Pt now has an infection and started on IV-Abx and if it doesn't resolve then pt may need I&D to fully clean out. Pt started back on her home TPN with added sodium due to her electrolyte levels. DAVI met with Kiran from [facility] and updated on pt status and provided the MD prog note from today and Kiran met bedside with the pt and checked in. Plan: SW to follow closely for possible NG to be discontinued soon and to determine if pt will require I&D for her infection. Pt likely to d/c back home with Resume [facility] for TPN (and possible IV-Abx?) and possible Resume Radha Krishnan MSW
[2018-07-30] MEDS: VANCOMYCIN 1,000 MG/200 ML FROZ.PIGGY 200 MG IV ×2 (15:55→22:55)
[2018-07-30] MEDS: SCOPOLAMINE 1 PATCH TOP (16:48)
[2018-07-30] MEDS: DEXT IV (18:30)
[2018-07-30] MEDS: LYTES IV (18:30)
[2018-07-30] MEDS: CALCIUM IV (18:30)
[2018-07-30] MEDS: SODIUM CHLORIDE 0.9% IV (18:30)
[2018-07-30] MEDS: [UNRECOGNIZED DRUG - OTHER] IV (18:30)
[2018-07-30] MEDS: TETRACAINE/BENZOCAINE/BUTAMBEN (CETACAINE) BOTTLE 1 SPRAY TOP (22:01)
[2018-07-31] VITALS (9 sets, daily range): BP systolic 90–118; BP diastolic 45–74; PULSE 71–92; RESP 14–18; TEMP 36.6–37.4; O2SAT 92–97
--- NOTE | 2018-07-31 00:13 | PC.NURSE ---
1500-assumed care of pt from outgoing shift. PT awake and alert. Pt uses call light. pt sleeps, but arouses easily. pt reports pain is managed with COMPENSATION ANALYST. Pt sba to bsc. NGT hooked up to int low sx per order/ nausea. 100 out. gastronomy tube rehooked and taped to tongue depressor for support because the connections keeps coming . this allowed 100ml of gastric drainage. Pt dressing changed (outer gauze) to abdominal wound. bloody drainage. pt has very tender skin around wound. redness/tender/excoriation to upper left side of wound, along abdominal fold. Pt up out of bed multiple times for voiding. pt given ice chips. Pt cooperative but anxious and sad about everything that is happening. will continue to monitor pt fro safety.
[2018-07-31] MEDS: LORazepam 2 MG/ML SYRINGE 1 MG IV ×4 (02:37→17:37)
[2018-07-31] MEDS: CLINDAMYCIN 600 MG/50 ML PIGGYBACK 50 MG IV ×3 (06:15→20:36)
[2018-07-31 06:33] LABS: Add Manual Diff / Slide Review NO; Basophils Absolute Auto 100 /uL (0-100); Basophils Percent Auto 1.3 % (0-2); Eosinophils Absolute Auto 100 /uL (0-450); Eosinophils Percent Auto 1.6 % (2-4); Hematocrit 28.5 % (36-46); Hemoglobin 9.3 g/dL (12.0-16.0); Lymphocytes Absolute Auto 1400 /uL (1100-4500); Lymphocytes Percent Auto 14.4 % (25-40); Mean Corpuscular HGB Conc 32.6 % (30-36); Mean Corpuscular Volume 82.9 fL (80-100); Monocytes Absolute Auto 900 /uL (0-900); Neutrophils Absolute Auto 7000 /uL (1500-7000); Neutrophils Percent Auto 73.7 % (50-75); Platelet Count 234 X10^3/uL (150-400); Red Blood Cell Count 3.43 X10^6/uL (4.0-5.2); Red Cell Distribution Width 17.9 % (11.6-14.8); White Blood Cell Count 9.5 X10^3/uL (4.5-11.0)
[2018-07-31 06:42] LABS: Alanine Aminotransferase 33 IU/L (9-52); Albumin 2.8 g/dL (3.5-5.0); Albumin Globulin Ratio 0.8 (1.0-2.8); Alkaline Phosphatase 77 U/L (38-126); Aspartate Aminotransferase 16 IU/L (14-36); BUN Creatinine Ratio 22.9 (6-22); Bilirubin Total 0.7 mg/dL (0.2-1.3); Blood Urea Nitrogen 16 mg/dL (7-17); Calcium 8.5 mg/dL (8.4-10.2); Carbon Dioxide 28 mmol/L (22-32); Chloride 99 mmol/L (98-107); Estimated Glomerular Filt Rate > 60.0 mL/min (>60); Globulin 3.3 g/dL (1.7-4.1); Glucose 87 mg/dL (70-100); HEMOLYSIS < 15 (0-50); Magnesium 1.6 mg/dL (1.6-2.3); Phosphorous 4.3 mg/dL (2.5-4.5); Potassium 4.2 mmol/L (3.4-5.1); Sodium 134 mmol/L (137-145); Total Protein 6.1 g/dL (6.3-8.2)
--- NOTE | 2018-07-31 06:49 | PC.NURSE ---
Patient's NGT clamped for 4 hours with 100cc of bile drainage. To be hooked back up to low intermittent suction. Some slight nausea but states it's not too bad compared to usual. Ativan helping with nausea. TPN running at 203mL/hr Dilaudid MUFFLER TENDER with 2.2mg used. Abdominal wound dressing changed at midnight that had some bloody drainage on it. New 2x2 and 4x4 gauzes applied. Slightly red above site, pt stating its a bit itchy. Gastrostomy Tube connected to gravity with 170mL of brown fecal smelling drainage.
[2018-07-31] MEDS: VANCOMYCIN 1,000 MG/200 ML FROZ.PIGGY 200 MG IV ×3 (07:16→22:55)
[2018-07-31] MEDS: ENOXAPARIN 40 MG/0.4 ML SYRINGE SUBCUT (09:39)
[2018-07-31] MEDS: PANTOPRAZOLE 40 MG VIAL IV (09:40)
[2018-07-31] MEDS: SODIUM CHLORIDE 0.9% FLUSH 10 ML IV ×2 (11:20→11:35)
[2018-07-31 14:15] LABS: Vancomycin Trough 18.1 ug/mL (10-20)
[2018-07-31] MEDS: HYDROMORPHONE PCA (6MG/30ML) 6 MG/30 ML PCA.VIAL IV (14:21)
--- NOTE | 2018-07-31 15:45 | PC.NURSE ---
Addendum entered by Deja Gill R.N. 07/31/18 16:05: Above lower abd dressing, area marked for pink/redness, did not exceed marked lines during shift. Redness also noted on previous shifts. Original Note: Day Shift- Pt interactive with conversation, awake, making eye contact. OOB with SBA to BSC, offered to assist to recliner chair now or throughout shift and pt stated sounds like a good idea, maybe later, I'm tired right now. NGT taped and secured at 50cm, previously clamped this AM by night RN, unclamped at 0930, pt mild nausea at that time. NGT placed back to LIS 50-55 per order. NGT output total was approx 50mls of green/brown fluid. Gastrostomy tube to gravity, was leaking small amount, pt reported. Re-taped tubes and then placed tongue depressor against ube as support and taped to tubing. No further leaking noted. Approx 75mls emptied for shift total and pt had approx 1 cup of ice for shift. HADOOP ADMIN Dilaudid in place and effective, pt used 2.4mg=12mls. Reported to evening RN to clarify NGT clamping instructions when physician team rounds on pt.
[2018-07-31] MEDS: ONDANSETRON 4 MG/2 ML INJ IV (15:47)
--- NOTE | 2018-07-31 17:40 | P.PN_ITS ---
Subjective Date Patient Seen: 07/31/18 Time Patient Seen: 17:35 Interval history: Patient remains moderately depressed and is not ambulating significantly during the day. Spends very little time out of bed as well. Does get up to bedside commode periodically. No subjective fever or chills. Pain is controlled with HYPNOTHERAPIST. No chest pain or shortness of breath. No dysuria. Continues to have some tenderness and discomfort at the central portion of the abdomen at the level the abdominal wall. No further cramping abdominal pain. No significant wound drainage. Tolerating clamping of the nasogastric tube every 4 hr on and off without significant nausea. Exam Vital Signs (past 8 hours): - 07/31/18 11:31 07/31/18 12:00 07/31/18 16:00 Temperature 97.9 F 98.5 F Pulse Rate 86 88 79 Respiratory Rate 18 18 Blood Pressure 113/63 113/63 90/45 L Pulse Oximetry 93 92 Oxygen Delivery Method Room Air Oxygen Flow Rate 0 Narrative Exam Narrative: Patient seen and examined with the attending nurseJenny Patient lying in bed in no acute distress but obviously feeling lethargic Regular rate and rhythm. No wheezes Abdomen is not distended or tympanitic currently. She does have erythema over the central portion of the abdomen in the periumbilical region consistent with the abscess that was partially drained yesterday. Packing is removed. There is an area of the old scar the above the existing fistula site that now shows evidence of skin breakdown with some mildly purulent drainage after being probed with a sterile swab. The trach is contiguous with a cavity deep to the wound. I do not appreciate any fascial dehiscence. Inferior portion of the wound continues to granulate and epithelialize nicely. That element of the wound is essentially closed. She does have erythema as above which has been marked. Appropriately tender at the site but nontender elsewhere. Gastrostomy tube is draining minimal amount of bilious fluid. Nasogastric output is clear bilious fluid at this point. Output is only been a couple 100 cc throughout the day. Extremities show no clubbing or cyanosis Objective Labs Result Diagrams: 07/31/18 06:27 07/31/18 06:27 Labs: Laboratory Results - last 24 hr 07/31/18 07/31/18 07/31/18 06:27 06:27 13:30 WBC 9.5 RBC 3.43 L Hgb 9.3 L Hct 28.5 L MCV 82.9 MCH 27.0 MCHC 32.6 RDW 17.9 H Plt Count 234 Neut % (Auto) 73.7 Lymph % (Auto) 14.4 L [place] % (Auto) 9.0 Eos % (Auto) 1.6 L Baso % (Auto) 1.3 Neut # (Auto) 7000 Lymph # (Auto) 1400 [place] # (Auto) 900 Eos # (Auto) 100 Baso # (Auto) 100 Sodium 134 L Potassium 4.2 Chloride 99 Carbon Dioxide 28 BUN 16 Creatinine 0.70 Estimated GFR > 60.0 BUN/Creatinine Ratio 22.9 H Glucose 87 Calcium 8.5 Phosphorus 4.3 Magnesium 1.6 Total Bilirubin 0.7 AST 16 ALT 33 Alkaline Phosphatase 77 Total Protein 6.1 L Albumin 2.8 L Globulin 3.3 Albumin/Globulin Ratio 0.8 L Vancomycin Trough 18.1 Vancomycin level is appropriate. Cultures are showing skin delfin only at this point although clearly this was rebecca pus that was drained yesterday. Assessment & Plan Assessment & Plan narrative: 53-year-old female with multiple recurrent bowel obstruction secondary to adhesions. She has an ongoing partial small bowel obstruction currently which is slowly resolving. However, I am concerned that she is developing a new enterocutaneous fistula at the more superior aspect of the incision, possibly contiguous with the previous site near the umbilicus. I appreciate no undrained cavities of pus at this time although this certainly possible. I reiterated the possibility that she may require return to the operating room to open the wound for incision and drainage, irrigation, and packing. Continue current antibiotics. Await final cultures. Continue packing changes daily. I change the packing personally this evening which she tolerated well at the bedside. Continue NG clamping trials. Hopefully discontinue the NG in the next 1-2 days and leave the G-tube to gravity. She is tolerating her current TPN formula quite nicely so we will continue this as per her home regimen. Begin to cycle the TPN at some point in the next day or so as well. All the above discussed with the patient in detail. Questions were answered to her satisfaction, and she voiced understanding. Orders were written.
[2018-07-31] MEDS: LYTES IV (18:06)
[2018-07-31] MEDS: DEXT IV (18:06)
[2018-07-31] MEDS: SODIUM CHLORIDE 0.9% IV (18:06)
[2018-07-31] MEDS: [UNRECOGNIZED DRUG - OTHER] IV (18:06)
[2018-07-31] MEDS: CALCIUM IV (18:06)
[2018-07-31] MEDS: KCL 20 MEQ IN NS 1,000 ML 60 MEQ IV (20:36)
--- NOTE | 2018-07-31 21:20 | PC.NURSE ---
1500- assumed care of pt from outgoing shift. PT awake and alert. arouses to voice. bed alarm off as pt oriented and calls and waits. steady on feet. to bsc. Pt cooperative. MD in to see pt, changed dressing(two ribbon gauze placed, 4x4 and abd pad). some bloody discharge. no smell. tolerated well. pt using BOILER FITTER. Pt has ngt on. clamp at 7pm. will continue to monitor.
[2018-08-01] VITALS (10 sets, daily range): BP systolic 99–109; BP diastolic 56–73; PULSE 72–82; RESP 15–24; TEMP 36.3–36.9; O2SAT 93–98
--- NOTE | 2018-08-01 | DI.RAD.S_ITS ---
PROCEDURE: XR ACUTE ABDOMEN SERIES INDICATIONS: sbo TECHNIQUE: One view chest and two views of the abdomen were acquired. COMPARISON: [facility], CT, CT ABDOMEN PELVIS W CON, 07/22/2018, 16:16. [facility], CR, XR ACUTE ABDOMEN SERIES, 07/26/2018, 8:49. [facility], CR, XR ACUTE ABDOMEN SERIES, 05/28/2018, 5:24. FINDINGS: Surgical changes and devices: There is what appears to be a gastrostomy tube overlying the left upper abdomen. Air-fluid levels are seen scattered within large and small bowel loops, and the degree of gaseous filling of small bowel loops appear slightly improved. No free air is seen.. Chest: Lungs are clear. Heart size is normal. No pleural effusions. No pneumoperitoneum. Abdomen: Bowel gas pattern is normal. No suspicious calcifications. Visualized solid organ contours appear normal. Bones: No suspicious bony lesions. IMPRESSION: A small degree of improvement in the degree of generalized gas prominence within the small bowel is present. Stable appearing gastrostomy tube left upper abdomen. No free air found. No definite obstruction seen. Dictated by: Delroy Flores M.D. on 08/01/2018 at 10:05 Approved by: Delroy Flores M.D. on 08/01/2018 at 10:06
[2018-08-01] MEDS: LORazepam 2 MG/ML SYRINGE 1 MG IV ×5 (00:36→19:49)
--- NOTE | 2018-08-01 02:48 | PC.NURSE ---
Addendum entered by Jaylene Escobar 08/01/18 02:53: Pt. denies nausea at this time. Original Note: pt A/O x 4, c/o pain, requesting ativan. IV ativan given. Will monitor pain control.
--- NOTE | 2018-08-01 03:45 | PC.NURSE ---
pt up to bsc with bsa without difficulty. C/o of pain states 7 on pain scale. Asking for IV Ativan, explained to pt. a little bit early, pt. stated that she could wait. Will give at appropriate time and monitor pain control. No c/o nausea.
[2018-08-01] MEDS: CLINDAMYCIN 600 MG/50 ML PIGGYBACK 50 MG IV ×3 (06:32→21:38)
[2018-08-01] MEDS: ONDANSETRON 4 MG/2 ML INJ IV ×2 (06:35→18:23)
--- NOTE | 2018-08-01 06:37 | PC.NURSE ---
Addendum entered by Karime Stoddard R.N. 08/01/18 07:38: Nausea x1 at end of shift. Medicated. HEAVY EQUIPMENT RENTAL ASSOCIATE in use. Dr odonnell into see Pt. Updated on overnight care. OK to remove precautions for mixed skin delfin. TPN rate to decrease @ 0900, AM shift aware. Original Note: NOC shift Pt with anxiety, ativan given per request. TPN infusing, IVF, Dressing with serosang drainage from midline abd. Adam. tube with thick drainage collecting to tubing. NG patent. Following cylce orders of LIS and clamping. No nausea thus far. Restinf comfortably at present.
--- NOTE | 2018-08-01 08:26 | PM.PN.1 ---
Subjective Date Patient Seen: 08/01/18 Time Patient Seen: 08:26 Interval history: Patient in slightly better spirits today. Has multiple questions regarding her long-term continuity of care with surgery Services. Pain is controlled with POWER ORIGINATOR. Still having some intermittent mild nausea but no vomiting. Nausea controlled with Ativan. States that the Zofran is not particularly effective. Passing some flatus but no stool per rectum. Minimal drainage from the midline wound. Nasogastric tube output has been relatively minimal and she is tolerating 4 hr of clamping intermittently. Denies any chest pain or shortness of breath. No fevers or chills. Exam Vital Signs (past 8 hours): - 08/01/18 01:42 08/01/18 03:47 08/01/18 08:13 Temperature 97.6 F 97.4 F L Pulse Rate 72 75 Respiratory Rate 16 16 Blood Pressure 99/63 109/73 Pulse Oximetry 97 97 96 Oxygen Delivery Method Room Air Oxygen Flow Rate 0 Narrative Exam Narrative: Well-nourished well-developed female in no acute distress. Alert oriented x3. Chest clear to auscultation bilaterally without crackles or wheezes. Regular rate and rhythm Abdomen is soft and nondistended but obese. She is appropriately tender around the midline incision. The erythema has diminished mildly but remains at about the same size within the previously marked borders. The erythema has definitely not worsened or extended beyond the previous markings. Inferior aspect of the wound continues to granulate and essentially closed. There are 2 open wound tracks now the umbilicus and above the umbilicus which are again probed with sterile swabs. A small amount of purulent material but no rebecca pus. No undrained pockets are appreciated. Packing is replaced without difficulty which the patient tolerates well. Extremities show no clubbing or cyanosis Objective Labs Result Diagrams: 07/31/18 06:27 07/31/18 06:27 Labs: Laboratory Results - last 24 hr 07/31/18 13:30 Vancomycin Trough 18.1 Vancomycin level is appropriate yesterday. Remains with normal white count and no left shift. Anemia is stable. Electrolytes are perfectly normal including creatinine. Sugars are well controlled. Culture showed mixed skin delfin only. I discussed all this with the patient today. 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 We will continue the TPN at the current formula with 16 hr cycling. Lipids today as well. Out of bed as tolerated. Wound care as above with packing changes daily. Continue G-tube to gravity and continuously clamp the nasogastric tube today. Hopefully remove the nasogastric tube tomorrow if she tolerates this. Will obtain abdominal x-rays tomorrow prior to discontinuing the NG tube to check bowel gas pattern. Still unclear whether the wound will need to be opened and irrigated and formally packed in the operating room, but she is improving at the moment. Continue current antibiotics. Plan a 1 week course. Patient also had questions about continuity of care following my departure from this institution in the next month or so. We discussed options. At this time she expresses a desire to be seen in consultation hopefully as an outpatient sometime after discharge from this admission at the [facility]. She can therefore establish care, and if at any point she requires reoperation then she would certainly require tertiary center of that magnitude. I will make those arrangements during follow-up in the surgery clinic within the next several weeks or so. All questions were answered to her satisfaction, and she voiced understanding. She was agreeable to the plan. Orders were written.
[2018-08-01] MEDS: VANCOMYCIN 1,000 MG/200 ML FROZ.PIGGY 200 MG IV ×2 (09:11→16:50)
[2018-08-01] MEDS: CITALOPRAM 20 MG TABLET PO (09:13)
[2018-08-01] MEDS: ENOXAPARIN 40 MG/0.4 ML SYRINGE SUBCUT (09:13)
[2018-08-01] MEDS: PANTOPRAZOLE 40 MG VIAL IV (09:13)
--- NOTE | 2018-08-01 10:01 | PC.NURSE ---
Lisinopirl: pt refused morning lisinopril. BP 107/73
[2018-08-01] MEDS: KCL 20 MEQ IN NS 1,000 ML 60 MEQ IV (13:10)
[2018-08-01] MEDS: fentaNYL 25 MCG/PATCH TOP (13:46)
[2018-08-01] MEDS: HYDROMORPHONE PCA (6MG/30ML) 6 MG/30 ML PCA.VIAL IV ×2 (13:50→21:38)
--- NOTE | 2018-08-01 17:10 | PC.NURSE ---
Addendum entered by Maria G Read R.N. 08/01/18 21:57: Pt reports nausea persists despite zofran and ativan. Discussed with pt returning to LIS per NG and pt in agreement. This was accomplished. Original Note: Pt mostly sleeping, but rouses easily independently to toilet. Standby assistance only to commode. Reports passing flatus. Bowel tones are present with soft abdomen. Pt admits to little bit of nausea. Reviewed with pt scheduling of ativan as pt requests this med. Pt positions self onto left side in bed. G-tube to gravity wallis bag without any drainage. NG clamped. NPO except ice sparingly. Dressing to abdomen is dry and intact.
[2018-08-01] MEDS: SODIUM CHLORIDE 0.9% FLUSH 10 ML IV (18:24)
[2018-08-01] MEDS: DEXT IV (18:34)
[2018-08-01] MEDS: SODIUM CHLORIDE 0.9% IV (18:34)
[2018-08-01] MEDS: [UNRECOGNIZED DRUG - OTHER] IV (18:34)
[2018-08-01] MEDS: CALCIUM IV (18:34)
[2018-08-01] MEDS: LYTES IV (18:34)
[2018-08-01] MEDS: FAT EMULSIONS 50 GM/250 ML EMULSION IV (18:35)
[2018-08-02] VITALS (9 sets, daily range): BP systolic 107–135; BP diastolic 58–80; PULSE 75–84; RESP 16–20; TEMP 36.6–37.4; O2SAT 93–99
--- NOTE | 2018-08-02 | DI.RAD.S_ITS ---
PROCEDURE: XR ABDOMEN 3V INDICATIONS: small bowel obstruction TECHNIQUE: One view chest and two views of the abdomen were acquired. COMPARISON: [facility], CT, CT ABDOMEN PELVIS W CON, 07/22/2018, 16:16. [facility], CR, XR ACUTE ABDOMEN SERIES, 08/01/2018, 8:42. [facility], CR, XR ABDOMEN 3V, 07/28/2018, 7:40. FINDINGS: Surgical changes and devices: There is a right PICC with the tip in the area of the SVC. An NG tube is noted with the tip in the distal esophagus. There is a percutaneous gastrostomy. Chest: Lungs are clear. Heart size is normal. No pleural effusions. No pneumoperitoneum. Abdomen: There is abundant small bowel and colonic gas. A few air-fluid levels are noted. No suspicious calcifications. Visualized solid organ contours appear normal. Bones: No suspicious bony lesions. IMPRESSION: 1. Tubes and lines are as described. The tip of the NG tube appears to be the distal esophagus. 2. Nonspecific bowel gas pattern. Dictated by: Nirali Canchola M.D. on 08/02/2018 at 8:23 Approved by: Nirali Canchola M.D. on 08/02/2018 at 8:29
[2018-08-02] MEDS: LORazepam 2 MG/ML SYRINGE 1 MG IV ×6 (00:40→21:40)
[2018-08-02] MEDS: VANCOMYCIN 1,000 MG/200 ML FROZ.PIGGY 200 MG IV ×3 (00:53→17:58)
--- NOTE | 2018-08-02 01:34 | PC.NURSE ---
[place] Worker Note: 0040: Awake, resting in bed. resting at bedside. Vital signs stable. PICC in place in rt upper arm, with dressing cdi; TPN infusing at 203cc/hr and NS/KCL infusing at 60cc/hr. Midline dressing in place. Gastrostomy to gravity drainage, with small amt brown secretions in bag. Fentanyl patch located on rt arm. NGT to low intermittent suction checked for placement; tube is patent. REFERRAL AND INFORMATION AIDE in line and pt using it for pain relief.
[2018-08-02] MEDS: KCL 20 MEQ IN NS 1,000 ML 60 MEQ IV (05:03)
[2018-08-02] MEDS: CLINDAMYCIN 600 MG/50 ML PIGGYBACK 50 MG IV (05:03)
--- NOTE | 2018-08-02 08:41 | PM.PN.1 ---
Subjective Date Patient Seen: 08/02/18 Time Patient Seen: 08:42 Interval history: Has some mild nausea this morning but has tolerated NG tube clamping essentially for 24 hr now. Small amount of flatus but no bowel function. No vomiting. No subjective abdominal distention. Pain is controlled and diminishing at the central portion of the abdomen. No significant wound drainage. G-tube remains to gravity. No dysuria. No chest pain or shortness of breath. Exam Vital Signs (past 8 hours): - 08/02/18 05:05 08/02/18 07:48 08/02/18 07:50 Temperature 97.9 F Pulse Rate 75 77 Respiratory Rate 20 16 Blood Pressure 113/72 116/80 Pulse Oximetry 93 99 99 08/02/18 08:01 Temperature 99.4 F Pulse Rate Respiratory Rate Blood Pressure Pulse Oximetry Oxygen Delivery Method Room Air Oxygen Flow Rate 0 Narrative Exam Narrative: Remains afebrile and otherwise hemodynamically stable with normal blood pressure in no tachycardia. Adequate urine output G-tube output is minimal. Nasogastric tube output is bile tinged only and minimal. Chest clear to auscultation. Regular rate and rhythm Abdomen is soft and nondistended. Appropriately tender at the incision. Wound is intact with packing in place. No significant purulent drainage. The erythema has markedly improved. Remains appropriately tender at the site. Gastrostomy tube site is clean, dry, and intact. G-tube output is bilious. I personally replaced the packing and wound dressing today. She tolerated this well at the bedside. Extremities show no clubbing or cyanosis Objective Labs Result Diagrams: 07/31/18 06:27 07/31/18 06:27 Labs: Abdominal x-rays today are personally reviewed. She has stool and air throughout the colon. No significant dilated loops of small bowel. No significant air-fluid levels. Atelectasis bilaterally but no infiltrates in the lung beckman. No pleural effusions. I discussed this with the patient today. Assessment & Plan Assessment & Plan narrative: 53-year-old female with slowly resolving recurrent bowel obstruction complicated by enterocutaneous fistula and wound abscess. Cultures are showing skin delfin only. However she is responding to the current antibiotic regimen and wound care. We will continue those for now. Likely stop the antibiotics once the wound is clean and no erythema persists. Repeat laboratory studies tomorrow. Continue TPN on cycled regimen for now. Discontinue the nasogastric tube. Continue to monitor her with G-tube to gravity. Out of bed as much as possible. At some point we will need to wean the MAINTENANCE APPRENTICE and convert back to the oral morphine regimen she was receiving at home prior to this admission. Continue fentanyl patch for now although it appears that her insurance company will not approve this medication beyond this hospital stay. We will find some alternative, and I discussed this with her as well. Reiterated the plan to return to her home regimen that she was tolerating quite well prior to this admission. Will then consult tertiary center, likely [facility], in the general surgery department for long-term management as previously documented in prior notes this week. Patient is agreeable to this plan. Case again reviewed with the attending nurse as well as the discharge coordinators. Orders written.
--- NOTE | 2018-08-02 08:46 | P.PN_ITS ---
Subjective Date Patient Seen: 08/02/18 Time Patient Seen: 08:42 Interval history: Has some mild nausea this morning but has tolerated NG tube clamping essentially for 24 hr now. Small amount of flatus but no bowel function. No vomiting. No subjective abdominal distention. Pain is controlled and diminishing at the central portion of the abdomen. No significant wound drainage. G-tube remains to gravity. No dysuria. No chest pain or shortness of breath. Exam Vital Signs (past 8 hours): - 08/02/18 05:05 08/02/18 07:48 08/02/18 07:50 Temperature 97.9 F Pulse Rate 75 77 Respiratory Rate 20 16 Blood Pressure 113/72 116/80 Pulse Oximetry 93 99 99 08/02/18 08:01 Temperature 99.4 F Pulse Rate Respiratory Rate Blood Pressure Pulse Oximetry Oxygen Delivery Method Room Air Oxygen Flow Rate 0 Narrative Exam Narrative: Remains afebrile and otherwise hemodynamically stable with normal blood pressure in no tachycardia. Adequate urine output G-tube output is minimal. Nasogastric tube output is bile tinged only and minimal. Chest clear to auscultation. Regular rate and rhythm Abdomen is soft and nondistended. Appropriately tender at the incision. Wound is intact with packing in place. No significant purulent drainage. The erythema has markedly improved. Remains appropriately tender at the site. Gastrostomy tube site is clean, dry, and intact. G-tube output is bilious. I personally replaced the packing and wound dressing today. She tolerated this well at the bedside. Extremities show no clubbing or cyanosis Objective Labs Result Diagrams: 07/31/18 06:27 07/31/18 06:27 Labs: Abdominal x-rays today are personally reviewed. She has stool and air throughout the colon. No significant dilated loops of small bowel. No significant air-fluid levels. Atelectasis bilaterally but no infiltrates in the lung beckman. No pleural effusions. I discussed this with the patient today. Assessment & Plan Assessment & Plan narrative: 53-year-old female with slowly resolving recurrent bowel obstruction complicated by enterocutaneous fistula and wound abscess. Cultures are showing skin delfin only. However she is responding to the current antibiotic regimen and wound care. We will continue those for now. Likely stop the antibiotics once the wound is clean and no erythema persists. Repeat laboratory studies tomorrow. Continue TPN on cycled regimen for now. Discontinue the nasogastric tube. Continue to monitor her with G-tube to gravity. Out of bed as much as possible. At some point we will need to wean the FIREARMS INSPECTOR and convert back to the oral morphine regimen she was receiving at home prior to this admission. Continue fentanyl patch for now although it appears that her insurance company will not approve this medication beyond this hospital stay. We will find some alternative, and I discussed this with her as well. Reiterated the plan to return to her home regimen that she was tolerating quite well prior to this admission. Will then consult tertiary center, likely [facility], in the general surgery department for long- term management as previously documented in prior notes this week. Patient is agreeable to this plan. Case again reviewed with the attending nurse as well as the discharge coordinators. Orders written.
[2018-08-02] MEDS: ENOXAPARIN 40 MG/0.4 ML SYRINGE SUBCUT (10:03)
[2018-08-02] MEDS: CITALOPRAM 20 MG TABLET PO (10:03)
[2018-08-02] MEDS: PANTOPRAZOLE 40 MG VIAL IV (10:04)
[2018-08-02] MEDS: CLINDAMYCIN IV ×2 (13:55→21:40)
[2018-08-02] MEDS: WATER IV ×2 (13:55→21:40)
[2018-08-02] MEDS: DEXTROSE 5% IV ×2 (13:55→21:40)
[2018-08-02] MEDS: HYDROMORPHONE PCA (6MG/30ML) 6 MG/30 ML PCA.VIAL IV ×2 (14:00→21:45)
--- NOTE | 2018-08-02 14:38 | CM.SWNOTE ---
Met w/pt this afternoon, requested by JUNIOR Harper because pt was feeling anxious and teary today re: medical POC. Had lengthy conversation w/Carol; she shared that she is feeling overwhelmed about intermodal dispatcher plan and feeling anxious about Dr Levy leaving the practice in a few months. Pt has additional questions for Dr Levy re: current plan of care and his ideas about transferring pt's ongoing (not current) care to . Pt explains she likes to plan way ahead if possible and reiterates that changing providers is making her very anxious. A few of the questions pt relays to this PARQUET FLOOR LAYER: Who would be caring for me at and does that require a referral process in order for my insurance to cover? Why is another fistula developing? Why aren't I getting better? How long will I have this drain in place? What can I expect as the prison plan for me and my medical needs? Pt is the most concerned that when Dr Levy meets w/her, she forgets questions she has for him. Pt requests this PARQUET FLOOR LAYER be with her during a visit w/ Dr Levy if possible so some of the above stated questions/concerns can be relayed. This PARQUET FLOOR LAYER will attempt to meet this request the best I can time permitting, and coordination w/Dr Levy pending. Following closely and attempting to support pt and staff as needed and requested. BRENDAN Verde
--- NOTE | 2018-08-02 17:30 | PC.NURSE ---
FENTANYL PATCH REMOVED PER VERBAL ORDER
[2018-08-02] MEDS: [UNRECOGNIZED DRUG - OTHER] IV (17:55)
[2018-08-02] MEDS: CALCIUM IV (17:55)
[2018-08-02] MEDS: LYTES IV (17:55)
[2018-08-02] MEDS: SODIUM CHLORIDE 0.9% IV (17:55)
[2018-08-02] MEDS: DEXT IV (17:55)
[2018-08-03] VITALS (9 sets, daily range): BP systolic 112–131; BP diastolic 56–80; PULSE 77–88; RESP 16–18; TEMP 36.4–37.4; O2SAT 95–97
[2018-08-03] MEDS: VANCOMYCIN 1,000 MG/200 ML FROZ.PIGGY 200 MG IV (01:02)
[2018-08-03] MEDS: HYDROMORPHONE PCA (6MG/30ML) 6 MG/30 ML PCA.VIAL IV ×2 (01:09→21:44)
[2018-08-03] MEDS: KCL 20 MEQ IN NS 1,000 ML 60 MEQ IV ×2 (03:17→18:16)
[2018-08-03] MEDS: LORazepam 2 MG/ML SYRINGE 1 MG IV ×5 (05:13→22:58)
[2018-08-03] MEDS: CLINDAMYCIN IV ×3 (05:14→22:04)
[2018-08-03] MEDS: DEXTROSE 5% IV ×3 (05:14→22:04)
[2018-08-03] MEDS: WATER IV ×3 (05:14→22:04)
[2018-08-03] MEDS: ENOXAPARIN 40 MG/0.4 ML SYRINGE SUBCUT (09:34)
[2018-08-03] MEDS: LISINOPRIL 10 MG TABLET PO (09:34)
[2018-08-03] MEDS: CITALOPRAM 20 MG TABLET PO (09:35)
[2018-08-03] MEDS: PANTOPRAZOLE 40 MG VIAL IV (09:38)
[2018-08-03 09:57] LABS: Vancomycin Trough 23.3 ug/mL (10-20)
--- NOTE | 2018-08-03 10:30 | PC.NURSE ---
Patient reported nausea and abdominal pain and requested ativan. Ativan given at 1000. She reports she feels she is not making progress and feels like she can't deal with feeling like this forever. She is hopeful that she will get transferred to [facility].
[2018-08-03] MEDS: VANCOMYCIN TROUGH 1 REQUEST MISC (11:09)
[2018-08-03 12:12] LABS: Add Manual Diff / Slide Review NO; Basophils Absolute Auto 0 /uL (0-100); Basophils Percent Auto 0.8 % (0-2); Eosinophils Absolute Auto 100 /uL (0-450); Eosinophils Percent Auto 1.7 % (2-4); Hematocrit 27.8 % (36-46); Hemoglobin 9.1 g/dL (12.0-16.0); Lymphocytes Absolute Auto 900 /uL (1100-4500); Lymphocytes Percent Auto 18.2 % (25-40); Mean Corpuscular HGB Conc 32.6 % (30-36); Mean Corpuscular Hemoglobin 26.8 PG (26-34); Mean Corpuscular Volume 82.1 fL (80-100); Monocytes Absolute Auto 600 /uL (0-900); Monocytes Percent Auto 11.1 % (3-14); Neutrophils Absolute Auto 3500 /uL (1500-7000); Neutrophils Percent Auto 68.2 % (50-75); Platelet Count 242 X10^3/uL (150-400); Red Blood Cell Count 3.38 X10^6/uL (4.0-5.2); Red Cell Distribution Width 17.8 % (11.6-14.8); White Blood Cell Count 5.1 X10^3/uL (4.5-11.0)
[2018-08-03 12:16] LABS: INR 1.3 (0.9-1.3); Prothrombin Time 15.6 SECONDS (10.1-12.7)
[2018-08-03 12:19] LABS: PTT Partial Thromboplastin Tim 34 SECONDS (26.4-36.2)
[2018-08-03 12:21] LABS: Alanine Aminotransferase 29 IU/L (9-52); Albumin 2.8 g/dL (3.5-5.0); Albumin Globulin Ratio 0.8 (1.0-2.8); Alkaline Phosphatase 68 U/L (38-126); Aspartate Aminotransferase 13 IU/L (14-36); Bilirubin Total 0.3 mg/dL (0.2-1.3); Blood Urea Nitrogen 12 mg/dL (7-17); Calcium 8.8 mg/dL (8.4-10.2); Carbon Dioxide 29 mmol/L (22-32); Chloride 99 mmol/L (98-107); Estimated Glomerular Filt Rate > 60.0 mL/min (>60); Globulin 3.4 g/dL (1.7-4.1); Glucose 119 mg/dL (70-100); HEMOLYSIS < 15 (0-50); Magnesium 1.6 mg/dL (1.6-2.3); Phosphorous 5.1 mg/dL (2.5-4.5); Potassium 4.4 mmol/L (3.4-5.1); Sodium 134 mmol/L (137-145); Total Protein 6.2 g/dL (6.3-8.2)
--- NOTE | 2018-08-03 15:01 | PC.NURSE ---
agree with Shanika SN note. pt reports increased dizziness when OOB to BSC. VSS
[2018-08-03] MEDS: [UNRECOGNIZED DRUG - OTHER] IV (18:08)
[2018-08-03] MEDS: DEXT IV (18:08)
[2018-08-03] MEDS: CALCIUM IV (18:08)
[2018-08-03] MEDS: SODIUM CHLORIDE 0.9% IV (18:08)
[2018-08-03] MEDS: LYTES IV (18:08)
[2018-08-03] MEDS: FAT EMULSIONS 50 GM/250 ML EMULSION IV (18:11)
--- NOTE | 2018-08-03 19:49 | PC.NURSE ---
Pt. is mostly sleeping, not wanting to get up and around says she is dizzy. Pain Level 3/10. Has flat affect.
[2018-08-03] MEDS: VANCOMYCIN 1,250 MG in SODIUM CHLORIDE 0.9% 250 ML 166.667 ML IV (20:23)
--- NOTE | 2018-08-03 20:23 | PC.NURSE ---
Dr. Chris in to perform dressing change to abdomen.
--- NOTE | 2018-08-03 20:41 | P.PN_ITS ---
Subjective Date Patient Seen: 08/03/18 Time Patient Seen: 20:36 Interval history: Patient seen earlier today. She was complaining of abdominal pain. Her drainage is purulent around the mame placed in the 2 openings in her abdominal wall. This evening she complained of dizziness. She is not having quite some much pain. She was concerned about it and I wondered if there had been any changes in her medication. She stated that she did have a fentanyl patch on until today and that may well be the source of her dizziness. Only occurs when she tries to get up. Exam Vital Signs (past 8 hours): - 08/03/18 14:00 08/03/18 18:11 08/03/18 19:37 Temperature 98.2 F 98.0 F Pulse Rate 77 88 Respiratory Rate 18 16 Blood Pressure 124/71 112/63 Pulse Oximetry 95 97 96 Oxygen Delivery Method Room Air Oxygen Flow Rate 0 Narrative Exam Narrative: Very flat affect. Redness seems to have pretty much resolved around our upper incision. A probe the depth than it is at least 2 years or so in depth. I irrigated these 2 cavities and I think they interconnect in a small way because flushing in the lower of the 2 openings brings a small amount of fluid from the upper. Objective Labs Result Diagrams: 08/03/18 12:00 08/03/18 12:00 Labs: Laboratory Results - last 24 hr 08/03/18 08/03/18 08/03/18 08:55 12:00 12:00 WBC 5.1 RBC 3.38 L Hgb 9.1 L Hct 27.8 L MCV 82.1 MCH 26.8 MCHC 32.6 RDW 17.8 H Plt Count 242 Neut % (Auto) 68.2 Lymph % (Auto) 18.2 L Hutchinson % (Auto) 11.1 Eos % (Auto) 1.7 L Baso % (Auto) 0.8 Neut # (Auto) 3500 Lymph # (Auto) 900 L Hutchinson # (Auto) 600 Eos # (Auto) 100 Baso # (Auto) 0 PT 15.6 H INR 1.3 APTT 34 D Sodium Potassium Chloride Carbon Dioxide BUN Creatinine Estimated GFR BUN/Creatinine Ratio Glucose Calcium Phosphorus Magnesium Total Bilirubin AST ALT Alkaline Phosphatase Total Protein Albumin Globulin Albumin/Globulin Ratio Vancomycin Trough 23.3 H* 08/03/18 12:00 WBC RBC Hgb Hct MCV MCH MCHC RDW Plt Count Neut % (Auto) Lymph % (Auto) Hutchinson % (Auto) Eos % (Auto) Baso % (Auto) Neut # (Auto) Lymph # (Auto) Hutchinson # (Auto) Eos # (Auto) Baso # (Auto) PT INR APTT Sodium 134 L Potassium 4.4 Chloride 99 Carbon Dioxide 29 BUN 12 Creatinine 0.80 Estimated GFR > 60.0 BUN/Creatinine Ratio 15.0 Glucose 119 H Calcium 8.8 Phosphorus 5.1 H Magnesium 1.6 Total Bilirubin 0.3 AST 13 L ALT 29 Alkaline Phosphatase 68 Total Protein 6.2 L Albumin 2.8 L Globulin 3.4 Albumin/Globulin Ratio 0.8 L Vancomycin Trough Assessment & Plan Post-op Postoperative Postoperative status narrative: Not clear for dealing with a strict infection, new fistula forming or other process. Her original fistula opening is still open. But is not draining anything that looks like succus. Postoperative plan narrative: Consider fistulogram. Consider operation to unroof these tracts to see if we are dealing with a fistula related to a suture 3 0. Patient is terrified of any major operation and affect took her to the OR I certainly would limit my procedure to dealing with things in the fascia and above. Consider CT scanning 1st depending on when her last scan was.
[2018-08-04] VITALS (12 sets, daily range): BP systolic 120–135; BP diastolic 64–79; PULSE 76–87; RESP 16–18; TEMP 36.6–37.3; O2SAT 95–98
[2018-08-04] MEDS: LORazepam 2 MG/ML SYRINGE 1 MG IV ×4 (04:24→19:10)
[2018-08-04] MEDS: WATER IV (04:25)
[2018-08-04] MEDS: DEXTROSE 5% IV (04:25)
[2018-08-04] MEDS: CLINDAMYCIN IV (04:25)
[2018-08-04] MEDS: LISINOPRIL 10 MG TABLET PO (09:36)
[2018-08-04] MEDS: CITALOPRAM 20 MG TABLET PO (09:36)
[2018-08-04] MEDS: SODIUM CHLORIDE 0.9% FLUSH 10 ML IV (09:37)
[2018-08-04] MEDS: ENOXAPARIN 40 MG/0.4 ML SYRINGE SUBCUT (09:37)
[2018-08-04] MEDS: PANTOPRAZOLE 40 MG VIAL IV (09:37)
--- NOTE | 2018-08-04 10:19 | CM.DPC ---
Addendum entered by BRENDAN Daniels 08/04/18 14:40: ADD: SW spoke to [facility] and confirmed that they will only need [facility] orders at d/c for ongoing wound care. SW faxed pt's H&P and most recent MD prog note for review since pt has been admitted since 07/23/18 and still not stable for discharge yet. Plan: SW to fax d/c summary and [facility] orders to [facility] at discharge. BRENDAN Daniels Original Note: DCP Cont: Per Dr. Levy, waiting for scan to confirm if pt's fissures will require surgical intervention. Pt very upset over possibility of further surgery. Previous SW met with pt bedside to further support pt in her concerns and questions and may need further support if decision made for further surgery. Current plan has been return home when medically stable with [facility] for TPN and [facility] for ongoing wound care. SW left message for [facility] to clarify if they need Resume orders or new HH orders at discharge. Plan: SW to follow closely for return call from [facility] on they type of orders they need at d/c. SW to follow for possible surgical intervention for the pt. BRENDAN Daniels
[2018-08-04] MEDS: CLINDAMYCIN 600 MG/50 ML PIGGYBACK 100 MG IV ×2 (11:59→21:32)
[2018-08-04] MEDS: KCL 20 MEQ IN NS 1,000 ML 60 MEQ IV (14:08)
[2018-08-04] MEDS: HYDROMORPHONE PCA (6MG/30ML) 6 MG/30 ML PCA.VIAL IV ×2 (14:18→21:36)
--- NOTE | 2018-08-04 15:49 | PN_ITS ---
DATE OF SERVICE: 08/04/2017 SUBJECTIVE: Patient's in with bowel obstruction, some cutaneous fistulae. She has been on chronic home TPN. Currently today, she's resting comfortably. Gastrostomy dreamed about 500 cc over the last 24 hours. LABORATORY DATA: The patient has white count that is 5000, hemoglobin 9.1. Laboratory data otherwise is within normal range for her continued TPN which I have reordered. Her potassium is 4.4. Discussed it with the pharmacist. PLAN: TPN is reordered with her lipids. She's resting comfortably in bed at the moment Carol Reyes - /tera/ doc#: [id number]/job#: [id number] dd: 08/04/2018 10:45:00 dt: 08/04/2018 15:44:00 DICTATING /COPIES TO: Jarocho Cantu MD COPIES MNE: J LUIS
[2018-08-04] MEDS: FAT EMULSIONS 50 GM/250 ML EMULSION IV (17:43)
[2018-08-04] MEDS: SODIUM CHLORIDE 0.9% IV (17:44)
[2018-08-04] MEDS: DEXT IV (17:44)
[2018-08-04] MEDS: [UNRECOGNIZED DRUG - OTHER] IV (17:44)
[2018-08-04] MEDS: CALCIUM IV (17:44)
[2018-08-04] MEDS: LYTES IV (17:44)
[2018-08-05] VITALS (8 sets, daily range): BP systolic 125–154; BP diastolic 70–80; PULSE 68–88; RESP 16–20; TEMP 36.4–37; O2SAT 95–97
[2018-08-05] MEDS: LORazepam 2 MG/ML SYRINGE 1 MG IV ×5 (02:00→21:41)
[2018-08-05] MEDS: SODIUM CHLORIDE 0.9% FLUSH 10 ML IV ×2 (02:01→09:24)
[2018-08-05] MEDS: CLINDAMYCIN 600 MG/50 ML PIGGYBACK 100 MG IV ×3 (05:40→21:54)
[2018-08-05] MEDS: KCL 20 MEQ IN NS 1,000 ML 60 MEQ IV ×2 (05:42→21:43)
[2018-08-05 06:01] LABS: BUN Creatinine Ratio 15.7 (6-22); Blood Urea Nitrogen 11 mg/dL (7-17); Calcium 8.5 mg/dL (8.4-10.2); Carbon Dioxide 26 mmol/L (22-32); Chloride 102 mmol/L (98-107); Estimated Glomerular Filt Rate > 60.0 mL/min (>60); Glucose 117 mg/dL (70-100); HEMOLYSIS < 15 (0-50); Potassium 4.1 mmol/L (3.4-5.1); Sodium 136 mmol/L (137-145)
[2018-08-05 08:33] LABS: Vancomycin Trough 6.3 ug/mL (10-20)
[2018-08-05] MEDS: PANTOPRAZOLE 40 MG VIAL IV (09:17)
[2018-08-05] MEDS: CITALOPRAM 20 MG TABLET PO (09:17)
[2018-08-05] MEDS: LISINOPRIL 10 MG TABLET PO (09:17)
[2018-08-05] MEDS: ENOXAPARIN 40 MG/0.4 ML SYRINGE SUBCUT (09:17)
--- NOTE | 2018-08-05 12:37 | PN_ITS ---
DATE OF SERVICE: 08/05/2018 SUBJECTIVE: Patient's and with chronic bowel obstruction, on TPN. Subjectively, she's comfortable, has no abdominal pain. No nausea, vomiting. She actually had a bowel movement yesterday, or last evening. Her laboratory data looks excellent today with normal electrolytes. I have renewed her TPN. OBJECTIVE: Gastrostomy drainage was diminished yesterday to about 250 cc. She's afebrile today. She has 2 subcutaneous wounds on her abdomen that are being cleansed and repacked by the nurses. PLAN: She's afebrile, doing fairly well, in a stable condition. Carol Reyes - Sven/ doc#: [id number]/job#: [id number] dd: 08/05/2018 10:40:00 dt: 08/05/2018 12:31:00 DICTATING /COPIES TO: Jarocho Cantu MD COPIES MNE: J LUIS
--- NOTE | 2018-08-05 13:46 | PC.NURSE ---
Day shift: Per Dr Keller changed Pt's diet to clear liquids with only sips of the clear liquids at a time.
[2018-08-05] MEDS: HYDROMORPHONE PCA (6MG/30ML) 6 MG/30 ML PCA.VIAL IV ×2 (13:50→21:43)
[2018-08-05] MEDS: CALCIUM IV (18:28)
[2018-08-05] MEDS: [UNRECOGNIZED DRUG - OTHER] IV (18:28)
[2018-08-05] MEDS: LYTES IV (18:28)
[2018-08-05] MEDS: DEXT IV (18:28)
[2018-08-05] MEDS: SODIUM CHLORIDE 0.9% IV (18:28)
[2018-08-05] MEDS: FAT EMULSIONS 50 GM/250 ML EMULSION IV (18:28)
[2018-08-06] VITALS (9 sets, daily range): BP systolic 118–133; BP diastolic 67–75; PULSE 71–80; RESP 16–20; TEMP 36.6–37.1; O2SAT 95–98
[2018-08-06] MEDS: LORazepam 2 MG/ML SYRINGE 1 MG IV ×3 (02:52→18:35)
[2018-08-06] MEDS: CLINDAMYCIN 600 MG/50 ML PIGGYBACK 100 MG IV ×3 (04:40→20:51)
[2018-08-06] MEDS: ENOXAPARIN 40 MG/0.4 ML SYRINGE SUBCUT (09:28)
[2018-08-06] MEDS: PANTOPRAZOLE 40 MG VIAL IV (09:28)
[2018-08-06] MEDS: SODIUM CHLORIDE 0.9% FLUSH 10 ML IV (09:28)
[2018-08-06] MEDS: CITALOPRAM 20 MG TABLET PO (09:28)
[2018-08-06] MEDS: LISINOPRIL 10 MG TABLET PO (09:28)
--- NOTE | 2018-08-06 09:56 | PM.PN.1 ---
Subjective Date Patient Seen: 08/06/18 Interval history: Patient has been in the hospital for several days now for observation of small-bowel obstruction and continuing TPN. She describes no abdominal pain no nausea vomiting. Patient is having stools. She is actually tolerating a small amount of clear liquids orally. Exam Vital Signs (past 8 hours): - 08/06/18 06:00 08/06/18 07:40 08/06/18 09:52 Temperature 98.0 F 98.1 F Pulse Rate 74 80 Respiratory Rate 16 18 Blood Pressure 118/75 123/69 Pulse Oximetry 98 96 95 Oxygen Delivery Method Room Air Oxygen Flow Rate 0 Narrative Exam Narrative: On exam today she is afebrile she has no new complaints. Abdomen is soft. Gastrostomy is producing only a moderate amount. Objective Labs Result Diagrams: 08/03/18 12:00 08/05/18 05:18 Assessment & Plan Assessment & Plan narrative: Assessment the patient seems to be resolving her small-bowel obstruction in that she is tolerating a clear liquid diet and having only a moderate amount of gastrostomy drainage. My plan will be to continue her TPN which is ordered again today. We will advance her to sips of full liquid diet. And try clamping the gastrostomy tube. Of course if she has pain then we will on clamped the gastrostomy.
--- NOTE | 2018-08-06 10:05 | PM.PN.1 ---
Subjective Date Patient Seen: 08/06/18 Time Patient Seen: 10:06 Interval history: Patient continues to complain of dizziness/vertigo. Feels unstable when she stands to ambulate. This will pass to some extent but persists even when she is supine in bed. No nausea or vomiting however. Denies any fever chills. No chest pain or shortness of breath. 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 No dysuria or hematuria. Of note, she is passing flatus and semi solid bowel movements over the last 24-48 hours now. Exam Vital Signs (past 8 hours): - 08/06/18 06:00 08/06/18 07:40 08/06/18 09:52 Temperature 98.0 F 98.1 F Pulse Rate 74 80 Respiratory Rate 16 18 Blood Pressure 118/75 123/69 Pulse Oximetry 98 96 95 Oxygen Delivery Method Room Air Oxygen Flow Rate 0 Narrative Exam Narrative: Remains afebrile and hemodynamically stable. No tachycardia Lying comfortably in bed in no acute distress. Alert oriented x3. Affect is not as flat today. Chest clear to auscultation bilaterally with regular rate rhythm. No wheezes. Abdomen shows bowel sounds throughout. She is nondistended. Appropriately tender along the incision. No guarding or rebound however. Gastrostomy tube output is minimal and mildly bilious. Midline incision is nearly closed other than the 2 existing sinus tracts near the umbilicus. Minimal amount of drainage from the inferior sinus tract consistent with the known enterocutaneous fistula. Does not appear to be rebecca succus however. Superior cavity is closing without evidence of any obvious pus. Erythema has resolved. I personally change the packing and dressing today. Extremities show no clubbing or cyanosis Objective Labs Result Diagrams: 08/03/18 12:00 08/05/18 05:18 Labs: No new radiographic or laboratory studies for review today. Assessment & Plan Assessment & Plan narrative: 53-year-old female with closing midline abdominal wound but persistent low output enterocutaneous fistula and resolving abscess cavity. Her small-bowel obstruction appears to be resolved currently as well. Overall she is improved. Continue G-tube to gravity with NPO status. Change to oral morphine as per her previous regimen. 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 Continue antibiotics for now until full course is completed. We will arrange for abscessogram as previously planned later this week. I discussed this with her. I will discuss with Radiology as well. Plan consultation otolaryngology for vertigo. Begin meclizine as needed as well. Unsure as to the source of her vertigo unless she has middle ear effusion from recent nasogastric tube insertion. Continue TPN at current regimen. Repeat laboratory studies in the next couple of days or so. Continue discharge planning to resume her home regimen as was in place prior to this admission. Have also initiated the outpatient general surgery referral to [facility] as previously discussed. Patient is aware. All questions were answered to her satisfaction, and she voiced understanding. Orders were written. Case reviewed with the attending nurse.
[2018-08-06] MEDS: MECLIZINE HCL 12.5 MG TABLET 25 MG PO (10:46)
[2018-08-06] MEDS: MORPHINE 10 MG/0.5 ML ORAL SYRINGE PO ×2 (10:46→15:56)
[2018-08-06] MEDS: KCL 20 MEQ IN NS 1,000 ML 60 MEQ IV (10:47)
[2018-08-06] MEDS: ONDANSETRON 4 MG/2 ML INJ IV (12:02)
--- NOTE | 2018-08-06 12:22 | PC.NURSE ---
Day shift: Per MD orders the gastro tube was clamped 2 hours ago. Pt is having nausea now. Gave IV Zofran and nausea still present. Unclamped the tube at 1215. Will continue to monitor and assess nausea.
--- NOTE | 2018-08-06 17:18 | PC.NURSE ---
1500- Safe handoff from day RN; g-tube present draining to gravity. Pt on clear liquid diet w/ supplemental TPN; abdom wounds covered and c/d/i w/ qshift dressing changes. Orders to clamp g-tube, pt states she gets severely nauseas when this occurs. 2 lumen PICC running NS w/ K+. Moving SBA to BSC; PO liquid morphine used for pain control. 1550- PO liquid morphine administered to pt w/o difficulty. Pt voiding in BSC; denies any nausea at this time. 1800- PICC dressing changed; abdominal wound re packed per orders. Pt given IV ativan for inc anxiety. 2100- Clindamycin IV hung; pt resting more comfortably in bed. States she does not want us to clamp her g-tube for fear of becoming nauseas.
--- NOTE | 2018-08-06 17:23 | PC.NURSE ---
Addendum entered by Meghana Resendiz R.N. 08/06/18 17:32: Original Note: kkkk
[2018-08-06] MEDS: SODIUM CHLORIDE 0.9% IV (17:58)
[2018-08-06] MEDS: LYTES IV (17:58)
[2018-08-06] MEDS: DEXT IV (17:58)
[2018-08-06] MEDS: CALCIUM IV (17:58)
[2018-08-06] MEDS: [UNRECOGNIZED DRUG - OTHER] IV (17:58)
[2018-08-07] VITALS (10 sets, daily range): BP systolic 121–153; BP diastolic 61–94; PULSE 73–90; RESP 16–20; TEMP 36.6–37.7; O2SAT 94–100
--- NOTE | 2018-08-07 00:11 | CONS_ITS ---
DATE OF SERVICE: 08/06/2018 OTOLARYNGOLOGY CONSULTATION CHIEF COMPLAINT: Vertigo. HISTORY OF PRESENT ILLNESS: A 53-year-old female admitted for bowel obstruction, began to notice spinning vertigo with head movement 2 days ago, without known preceding event. Only precipitated by head movement, spinning vertigo lasts a few seconds, does not seem to be related to what direction she turns her head. No concurrent hearing loss, ear pressure, tinnitus, otalgia, or otorrhea. No other neurologic symptoms, specifically denies headaches or visual changes. Evidently, the fentanyl was decreased, without obvious change; no other obvious electrolyte abnormalities. Dr. Tate Levy requested the consultation. PAST MEDICAL HISTORY: Reviewed, on the electronic medical record. MEDICATIONS: Reviewed, on the electronic medical record. ALLERGIES: REVIEWED, ON THE ELECTRONIC MEDICAL RECORD. SOCIAL HISTORY: Reviewed, on the electronic medical record. FAMILY HISTORY: Reviewed, on the electronic medical record. REVIEW OF SYSTEMS: Reviewed, on the electronic medical record. PHYSICAL EXAMINATION: GENERAL APPEARANCE: Well-developed, well-nourished, tired, but alert, once awakened, female, lying in bed, but able to sit up. Seems alert and oriented. HEENT: Head is normocephalic, atraumatic. External ears are normal. Normal ear canals and clear tympanic membranes, with clear middle ears. No spontaneous nystagmus. No refixation saccades with head thrust maneuver. Normal test for skew. ASSESSMENT: Positional vertigo, not classic for benign positional vertigo, possibly non-otologic source, as no visible nystagmus, despite some symptoms. Low suspicion for central process. PLAN: As discussed with the patient and Dr. Tate Levy, p.r.n. meclizine reasonable at this point, may require imaging of the brain with worsening or other concerning features. Consider follow up as an outpatient if persistent and desired. The patient and Dr. Tate Levy agree with the plan, understand, and are appreciative. ReyesCarol - DANNY/tera/kin doc#: [id number]/job#: [id number] dd: 08/06/2018 18:07:00 dt: 08/06/2018 23:57:00 DICTATING MD/COPIES TO: Rd Sharma MD COPIES MNE: ROGER
[2018-08-07] MEDS: CLINDAMYCIN 600 MG/50 ML PIGGYBACK 100 MG IV ×3 (04:28→20:27)
[2018-08-07] MEDS: KCL 20 MEQ IN NS 1,000 ML 60 MEQ IV ×2 (04:28→19:00)
[2018-08-07] MEDS: MECLIZINE HCL 12.5 MG TABLET 25 MG PO (04:35)
[2018-08-07] MEDS: MORPHINE 10 MG/0.5 ML ORAL SYRINGE PO ×3 (04:36→18:51)
--- NOTE | 2018-08-07 04:47 | PC.NURSE ---
Addendum entered by Lisa Triplett R.N. 08/07/18 06:53: Requesting something to help me sleep. Discussed that she has already had Ativan and nothing is ordered for sleep and at this time a sleep aid is not something that would be given. Patient began crying and saying it's just so hard. Allowed to vent and encouraged her to discuss medication regimen with MD today. Original Note: Addendum entered by Lisa Triplett R.N. 08/07/18 05:35: Requesting Ativan for nausea; medicated as requested. States pain improved and now down to 4/10 Original Note: Addendum entered by Lisa Triplett R.N. 08/07/18 05:06: Patient also states she is still feeling dizzy so medicated with Meclizine. Original Note: Patient has been mostly sleeping tonight. Now awakened for assessment/vitals and reports slight nausea (declines antiemetic) and states abdominal pain is 6/10 so medicated with Morphine. Is alert and oriented although has flat affect. Breath sounds diminished but CTA with RA sat of 98%. HRR. BT present and did have BM yesterday. Voiding on BSC; denies dysuria, frequency or urgency. Turns self in bed and transfers to BSC with SBA; does seem generally weak. Refuses SCD's. TPN infusing. Fall risk score is moderate; calls for assistance appropriately. Gastrostomy tube to gravity drain. Dressing to lower abdomen is CDI. HOB elevated to 22 degrees.
[2018-08-07] MEDS: LORazepam 2 MG/ML SYRINGE 1 MG IV ×2 (05:31→09:45)
[2018-08-07] MEDS: CITALOPRAM 20 MG TABLET PO (09:05)
[2018-08-07] MEDS: LISINOPRIL 10 MG TABLET PO (09:05)
[2018-08-07] MEDS: ENOXAPARIN 40 MG/0.4 ML SYRINGE SUBCUT (09:05)
[2018-08-07] MEDS: PANTOPRAZOLE 40 MG VIAL IV (09:06)
[2018-08-07] MEDS: HYDROMORPHONE 1 MG INJ IV ×2 (13:30→22:36)
[2018-08-07] MEDS: diphenhydrAMINE 50 MG/ML VIAL 25 MG IV (14:49)
--- NOTE | 2018-08-07 18:22 | P.PN_ITS ---
Subjective Date Patient Seen: 08/07/18 Time Patient Seen: 18:19 Interval history: Patient seen earlier this afternoon. She had been sleeping this morning at the time I initial visit. Has no new complaints. Nausea subsiding. Dizziness has subsided slightly also with meclizine. Continues to pass flatus but no further bowel movement. No dysuria. Pain controlled with oral morphine. Exam Vital Signs (past 8 hours): - 08/07/18 13:23 08/07/18 16:30 Temperature 99.8 F H 98.1 F Pulse Rate 90 76 Respiratory Rate 16 20 Blood Pressure 121/61 128/76 Pulse Oximetry 94 97 Oxygen Delivery Method Room Air Oxygen Flow Rate 0 Narrative Exam Narrative: Resting comfortably in bed in no acute distress. Alert oriented x3 Remains afebrile with no tachycardia. Normal blood pressure. Adequate urine output. G-tube output is minimal Abdomen soft and nondistended. Minimally tender to palpation. I did not change the dressing today. Objective Labs Result Diagrams: 08/03/18 12:00 08/05/18 05:18 Assessment & Plan Assessment & Plan narrative: Patient continues to slowly improve with resolving partial small-bowel obstruction. Continue current regimen was cycled TPN. Discontinue antibiotics after tomorrow's doses. Plan fistulogram tomorrow although she may simply just have cutaneous abscess from foreign body reaction the stitches or small minimal output fistula. Overall she is improving however. Repeat laboratory studies tomorrow. Tentatively plan discharged home on her previous home health and TPN regimen within the next 24-48 hours. Case reviewed with nursing program coordinator. Of note, I have initiated outpatient consultation with [facility] general surgery department as per previous plan and discussion with the patient.
[2018-08-07] MEDS: DEXT IV (18:35)
[2018-08-07] MEDS: CALCIUM IV (18:35)
[2018-08-07] MEDS: [UNRECOGNIZED DRUG - OTHER] IV (18:35)
[2018-08-07] MEDS: LYTES IV (18:35)
[2018-08-07] MEDS: SODIUM CHLORIDE 0.9% IV (18:35)
[2018-08-07] MEDS: FAT EMULSIONS 50 GM/250 ML EMULSION IV (18:41)
--- NOTE | 2018-08-07 22:04 | PC.NURSE ---
Pt resting quietly at intervals through evening. Med w/MS elixir x 1 w/good relief. TPN & Lipide infusing via pumps as per orders. Dsg to mid abdomen changed as per orders w/o incidence. Relatively uneventful evening, condition remains essentially uchanged. Call light w/in reach. Calls appropriately for requests. Continue w/plan of care.
[2018-08-08] VITALS (9 sets, daily range): BP systolic 123–140; BP diastolic 69–82; PULSE 74–83; RESP 16–18; TEMP 36.7–37.1; O2SAT 95–100
--- NOTE | 2018-08-08 | DI.RAD.S_ITS ---
PROCEDURE: FL FISTULA/ABSCESS/SINUS TRACT COMPARISON: None. INDICATIONS: Patient with multiple prior abdominal surgeries and prior enterocutaneous fistula who now presents with a midline lower abdominal wound tract with minimal discharge. Evaluation for possible enterocutaneous fistula. FINDINGS: Referring provider Dr. Tate Levy was present for the entirety of the exam. On physical exam the patient demonstrates a midline lower abdominal wound with surrounding erythema. Attempts to catheterize this region with larger bore catheters was unsuccessful. A 5 Welsh pediatric feeding catheter was subsequently successfully passed through the wound tract/possible fistula. Injection of water soluble radiopaque contrast through the feeding catheter demonstrates an approximately 2.5 cm transverse by 3.5 cm anteroposterior by 4.5 cm craniocaudal irregular wound cavity within the anterior abdominal soft tissues, but no enterocutaneous fistulous connection. The catheter coils within the wound cavity. Continued injection of water soluble contrast resulted in refluxing out from the wound cavity onto the patient's lower abdominal skin surface. IMPRESSION: Catheterization of the patient's lower midline abdominal wound tract demonstrates an approximately 4.5 cm irregular subcutaneous/soft tissue wound cavity, but no convincing enterocutaneous fistula is identified. These findings were discussed with the referring provider Dr. Tate Levy at the time of the exam in person by Dr. Best, as Dr. Levy was present for the entirety of the exam. Dictated by: Yoseph Best M.D. on 08/08/2018 at 14:00 Approved by: Yoseph Best M.D. on 08/08/2018 at 14:26
[2018-08-08] MEDS: LORazepam 2 MG/ML SYRINGE 1 MG IV ×3 (00:03→16:20)
--- NOTE | 2018-08-08 00:12 | PC.NURSE ---
Addendum entered by Lisa Triplett R.N. 08/08/18 06:48: Slept most of shift. Gastrostomy tube pulled apart x 2 this shift necessitating retaping of connector due to leakage. 10cc from gastrostomy this shift; has been to gravity. Patient fell asleep while RN working on tubing. Original Note: Patient is alert and oriented; affect brighter tonight. Breath sounds CTA with RA sat of 96%. HRR. BP elevated at 149/89. Denies nausea. BT present and abdomen is soft; passing flatus. Gastrostomy tube to gravity; skin around tube intact and without redness. Dressing to lower abdomen is CDI. Complains of 1/10 stabbing pain in lower abdomen but improved after having received Dilaudid at shift change. Independent with bed mobility and SBA when up to BSC due to weakness. Refusing SCD's. TPN/Lipids infusing via DL PICC. HOB is elevated 20 degrees. Fall risk score is moderate; calls for assist appropriately. Requested/medicated with Ativan for sleep.
[2018-08-08] MEDS: CLINDAMYCIN 600 MG/50 ML PIGGYBACK 100 MG IV ×3 (04:52→20:37)
[2018-08-08 07:23] LABS: Add Manual Diff / Slide Review NO; Basophils Absolute Auto 100 /uL (0-100); Basophils Percent Auto 1.2 % (0-2); Eosinophils Absolute Auto 200 /uL (0-450); Eosinophils Percent Auto 3.5 % (2-4); Hematocrit 28.7 % (36-46); Hemoglobin 9.3 g/dL (12.0-16.0); Lymphocytes Absolute Auto 1400 /uL (1100-4500); Lymphocytes Percent Auto 26.2 % (25-40); Mean Corpuscular HGB Conc 32.5 % (30-36); Mean Corpuscular Hemoglobin 26.9 PG (26-34); Mean Corpuscular Volume 82.7 fL (80-100); Monocytes Absolute Auto 500 /uL (0-900); Neutrophils Absolute Auto 3200 /uL (1500-7000); Neutrophils Percent Auto 60.1 % (50-75); Platelet Count 313 X10^3/uL (150-400); Red Blood Cell Count 3.47 X10^6/uL (4.0-5.2); White Blood Cell Count 5.4 X10^3/uL (4.5-11.0)
[2018-08-08 07:43] LABS: BUN Creatinine Ratio 17.1 (6-22); Blood Urea Nitrogen 12 mg/dL (7-17); Carbon Dioxide 28 mmol/L (22-32); Chloride 102 mmol/L (98-107); Estimated Glomerular Filt Rate > 60.0 mL/min (>60); Glucose 108 mg/dL (70-100); HEMOLYSIS < 15 (0-50); Magnesium 1.6 mg/dL (1.6-2.3); Potassium 4.6 mmol/L (3.4-5.1); Sodium 138 mmol/L (137-145)
[2018-08-08 08:06] LABS: Procalcitonin < 0.05 ng/mL (<0.5)
[2018-08-08] MEDS: PANTOPRAZOLE 40 MG VIAL IV (09:14)
[2018-08-08] MEDS: CITALOPRAM 20 MG TABLET PO (09:14)
[2018-08-08] MEDS: ENOXAPARIN 40 MG/0.4 ML SYRINGE SUBCUT (09:14)
[2018-08-08] MEDS: LISINOPRIL 10 MG TABLET PO (09:15)
[2018-08-08] MEDS: HYDROMORPHONE 1 MG INJ IV ×2 (09:30→18:33)
[2018-08-08] MEDS: MORPHINE 10 MG/0.5 ML ORAL SYRINGE PO ×3 (11:18→20:39)
--- NOTE | 2018-08-08 12:59 | PM.PN.1 ---
Subjective Date Patient Seen: 08/08/18 Time Patient Seen: 11:31 Interval history: Dizziness is slowly improving. Pain remains stable but controlled with oral morphine. No nausea or vomiting. Gastrostomy tube output remains bilious but not particularly voluminous. She notes no particular drainage from the midline wound. No subjective fever or chills. No chest pain or shortness of breath Exam Vital Signs (past 8 hours): - 08/08/18 07:00 08/08/18 07:18 08/08/18 11:00 Temperature 98.8 F Pulse Rate 74 83 Respiratory Rate 18 16 Blood Pressure 132/77 123/69 Pulse Oximetry 96 97 95 Oxygen Delivery Method Room Air Oxygen Flow Rate 0 Narrative Exam Narrative: She remains afebrile and hemodynamically stable with no tachycardia. Adequate urine output Some flatus but no further bowel movements Patient is examined in the radiology suite is at time of her fistulogram today. Abdomen is soft and nondistended. Minimally tender to palpation. Midline wound continues to close and heal nicely. Certainly no evidence of any erythema or other abnormalities at this point other than the open sinus tract. Fistulogram was attempted with multiple size small catheters and imaging essentially showed subcutaneous pocket only. There was no obvious connection to intra-abdominal structures, including intestine. I discussed this with her at the time of the study. Nonetheless she remains quite depressed and emotionally labile which is understandable given her prolonged illness. Objective Labs Result Diagrams: 08/08/18 06:30 08/08/18 06:30 Labs: Laboratory Results - last 24 hr 08/08/18 08/08/18 08/08/18 06:30 06:30 06:30 WBC 5.4 RBC 3.47 L Hgb 9.3 L Hct 28.7 L MCV 82.7 MCH 26.9 MCHC 32.5 RDW 18.0 H Plt Count 313 Neut % (Auto) 60.1 Lymph % (Auto) 26.2 Grainger % (Auto) 9.0 Eos % (Auto) 3.5 Baso % (Auto) 1.2 Neut # (Auto) 3200 Lymph # (Auto) 1400 Grainger # (Auto) 500 Eos # (Auto) 200 Baso # (Auto) 100 Sodium 138 Potassium 4.6 Chloride 102 Carbon Dioxide 28 BUN 12 Creatinine 0.70 Estimated GFR > 60.0 BUN/Creatinine Ratio 17.1 Glucose 108 H Calcium 9.0 Magnesium 1.6 Procalcitonin < 0.05 Fistulogram today as above. Assessment & Plan Assessment & Plan narrative: 53-year-old female with apparently closed and nearly healed enterocutaneous fistula. No evidence of further infection. Episode may have simply been a stitch abscess, but this is unclear. Discontinue antibiotics today. Continue current regimen with G-tube to gravity and TPN. We will hopefully be able to make arrangements for discharge back to home with home health and home TPN along with physical therapy later this week. I am hopeful that by August 10, 2018 we can make arrangements for discharge. All questions were answered to her satisfaction, and she voiced understanding.
--- NOTE | 2018-08-08 17:56 | PC.NURSE ---
Brandin, scant blood to 2X2 drsg at abdomen, packed drsg intact and open to air; gastrostomy tube positioned correctly and draining to gravity; pt reports moderate to severe pain to abdomen, improved with PO morphine elixir; IV ativan for anxiety; therapeutic listening provided by this RN, pt expresses anxiety r/t long-term healing process, and sadness r/t missing family and participating in daily activities; pt understands MD report regarding fistulogram, with possible d/c later in week
[2018-08-08] MEDS: SODIUM CHLORIDE 0.9% IV (18:16)
[2018-08-08] MEDS: CALCIUM IV (18:16)
[2018-08-08] MEDS: [UNRECOGNIZED DRUG - OTHER] IV (18:16)
[2018-08-08] MEDS: DEXT IV (18:16)
[2018-08-08] MEDS: LYTES IV (18:16)
[2018-08-08] MEDS: diphenhydrAMINE 50 MG/ML VIAL 25 MG IV (22:15)
[2018-08-09] VITALS (10 sets, daily range): BP systolic 120–158; BP diastolic 70–89; PULSE 75–89; RESP 16–18; TEMP 36.6–37.5; O2SAT 95–98
[2018-08-09] MEDS: MORPHINE 10 MG/0.5 ML ORAL SYRINGE PO ×2 (01:19→07:59)
--- NOTE | 2018-08-09 01:28 | PC.NURSE ---
Addendum entered by Lisa Triplett R.N. 08/09/18 06:20: Bed rezeroed this morning and now weight is 97kg which is up from 92.5kg. No edema noted. Breath sounds are CTA. Original Note: Addendum entered by Lisa Triplett R.N. 08/09/18 02:51: Requesting Bendaryl for sleep, but had at 2215 and is ordered q6h prn so too early to repeat; medicated instead with Ativan. Original Note: Patient is alert and oriented with continued brighter affect. Breath sounds CTA with RA sat of 96%. HRR. Denies nausea. BT present and abdomen is soft; passing flatus. Does state she is having 6/10 abdominal pain so medicated with po Morphine. Gastrostomy tube intact to gravity drainage. Abdominal dressing intact with dried sanguinous drainage noted at top of gauze packing. Denies dysuria, frequency or urgency. Able to turn self in bed and receives SBA to BSC. Refuses SCD's. TPN currently infusing via DL PICC. HOB is elevated at 20 degrees. Fall risk score is moderate; calls for assistance appropriately.
[2018-08-09] MEDS: LORazepam 2 MG/ML SYRINGE 1 MG IV (02:46)
[2018-08-09] MEDS: KCL 20 MEQ IN NS 1,000 ML 60 MEQ IV ×2 (06:38→22:37)
[2018-08-09] MEDS: LISINOPRIL 10 MG TABLET PO (07:58)
[2018-08-09] MEDS: ENOXAPARIN 40 MG/0.4 ML SYRINGE SUBCUT (07:58)
[2018-08-09] MEDS: CITALOPRAM 20 MG TABLET PO (07:59)
[2018-08-09] MEDS: PANTOPRAZOLE 40 MG PACKET PO (08:07)
--- NOTE | 2018-08-09 12:05 | PM.PN.1 ---
Subjective Date Patient Seen: 08/09/18 Time Patient Seen: 12:06 Interval history: Patient having some mild crampy abdominal pain this afternoon but no nausea or vomiting. Feels that the morphine is not quite lasting long enough but otherwise pain is controlled. Tolerating a few clear liquids by mouth as ordered. No significant gastrostomy tube output. Continues to pass flatus but no stool. No significant wound drainage. No chest pain or shortness of breath. Her dizziness has essentially nearly resolved as well. Ambulating more frequently today. Exam Vital Signs (past 8 hours): - 08/09/18 05:07 08/09/18 07:20 08/09/18 07:58 Temperature 98.1 F 98.3 F Pulse Rate 82 75 82 Respiratory Rate 18 16 Blood Pressure 136/77 122/79 136/77 Pulse Oximetry 97 96 08/09/18 08:16 Temperature Pulse Rate Respiratory Rate Blood Pressure Pulse Oximetry 96 Oxygen Delivery Method Room Air Oxygen Flow Rate 0 Narrative Exam Narrative: Patient lying in bed in no acute distress. Alert oriented x3 Chest clear to auscultation bilaterally with regular rate and rhythm. No murmurs. No crackles or wheezes. Abdomen is soft and nondistended. She is appropriately tender. Dressing is clean. Extremities show no clubbing or cyanosis Objective Labs Result Diagrams: 08/08/18 06:30 08/08/18 06:30 Labs: No new laboratory or radiographic studies for review today. Assessment & Plan Assessment & Plan narrative: 53-year-old female with resolved recurrent small bowel obstruction. We will continue her current care and cycled TPN formula. Increase morphine dosage back to the baseline dosage she was receiving prior to this admission. Fentanyl patch has been off for a number of days now. Convert to all oral medications as per her previous regimen. Tentatively plan for discharge tomorrow. Case reviewed with the dye and chemical coordinator today. All the above discussed with the patient at length. Questions were answered to her satisfaction, and she voiced understanding. Orders were written.
--- NOTE | 2018-08-09 12:08 | P.PN_ITS ---
Subjective Date Patient Seen: 08/09/18 Time Patient Seen: 12:06 Interval history: Patient having some mild crampy abdominal pain this afternoon but no nausea or vomiting. Feels that the morphine is not quite lasting long enough but otherwise pain is controlled. Tolerating a few clear liquids by mouth as ordered. No significant gastrostomy tube output. Continues to pass flatus but no stool. No significant wound drainage. No chest pain or shortness of breath. Her dizziness has essentially nearly resolved as well. Ambulating more frequently today. Exam Vital Signs (past 8 hours): - 08/09/18 05:07 08/09/18 07:20 08/09/18 07:58 Temperature 98.1 F 98.3 F Pulse Rate 82 75 82 Respiratory Rate 18 16 Blood Pressure 136/77 122/79 136/77 Pulse Oximetry 97 96 08/09/18 08:16 Temperature Pulse Rate Respiratory Rate Blood Pressure Pulse Oximetry 96 Oxygen Delivery Method Room Air Oxygen Flow Rate 0 Narrative Exam Narrative: Patient lying in bed in no acute distress. Alert oriented x3 Chest clear to auscultation bilaterally with regular rate and rhythm. No m urmurs. No crackles or wheezes. Abdomen is soft and nondistended. She is appropriately tender. Dressing is clean. Extremities show no clubbing or cyanosis Objective Labs Result Diagrams: 08/08/18 06:30 08/08/18 06:30 Labs: No new laboratory or radiographic studies for review today. Assessment & Plan Assessment & Plan narrative: 53-year-old female with resolved recurrent small bowel obstruction. We will continue her current care and cycled TPN formula. Increase morphine dosage back to the baseline dosage she was receiving prior to this admission. Fentanyl patch has been off for a number of days now. Convert to all oral medications as per her previous regimen. Tentatively plan for discharge tomorrow. Case reviewed with the family services coordinator today. All the above discussed with the patient at length. Questions were answered to her satisfaction, and she voiced understanding. Orders were written.
[2018-08-09] MEDS: MORPHINE 10 MG/0.5 ML ORAL SYRINGE 15 MG PO ×3 (12:16→19:51)
[2018-08-09] MEDS: LORazepam 1 MG TABLET PO (16:37)
--- NOTE | 2018-08-09 18:05 | PC.NURSE ---
Wound care/dressing change: 4 4x4 gauze dressings removed from abdominal wound. No packing was found within abdominal wound. Small amount of serosanguineous drainage was observed on dressing and in wound bed. Wet to dry dressing done using sterile water and 2 2x2 gauze dressings placed within abdominal wound. No packing. ABD pad applied with paper tape over wound.
[2018-08-09] MEDS: DEXT IV (18:39)
[2018-08-09] MEDS: LYTES IV (18:39)
[2018-08-09] MEDS: FAT EMULSIONS 50 GM/250 ML EMULSION IV (18:39)
[2018-08-09] MEDS: SODIUM CHLORIDE 0.9% IV (18:39)
[2018-08-09] MEDS: CALCIUM IV (18:39)
[2018-08-09] MEDS: [UNRECOGNIZED DRUG - OTHER] IV (18:39)
[2018-08-09] MEDS: diphenhydrAMINE 25 MG TABLET PO (22:03)
[2018-08-10] VITALS (7 sets, daily range): BP systolic 98–135; BP diastolic 55–78; PULSE 73–78; RESP 14–18; TEMP 36.4–36.8; O2SAT 95–97
[2018-08-10] MEDS: MORPHINE 10 MG/0.5 ML ORAL SYRINGE 15 MG PO ×3 (01:21→11:46)
--- NOTE | 2018-08-10 01:43 | PC.NURSE ---
Addendum entered by Lisa Triplett R.N. 08/10/18 06:41: Slept well most of night although up to BSC several times. Expresses mixed emotions regarding potential discharge today. Medicated this morning with scheduled po Protonix so gastrostomy tube clamped for next hour as per MD order. Original Note: Patient is alert and oriented. Breath sounds diminished but CTA with RA sat of 96%. HRR. Denies nausea. BT present and passing flatus. Gastrostomy intact and draining to gravity. Dressing to lower abdomen is CDI. Independent with bed mobility and SBA when up to BSC. Denies dysuria, frequency or urgency. TPN + Lipids infusing via DL PICC. Complains of 6/10 abdominal pain; medicated with Morphine elixer. Fall risk score is moderate; patient calls for assist appropriately
[2018-08-10] MEDS: PANTOPRAZOLE 40 MG PACKET PO (06:37)
[2018-08-10] MEDS: LISINOPRIL 10 MG TABLET PO (08:42)
[2018-08-10] MEDS: CITALOPRAM 20 MG TABLET PO (08:42)
[2018-08-10] MEDS: ENOXAPARIN 40 MG/0.4 ML SYRINGE SUBCUT (08:42)
--- NOTE | 2018-08-10 09:04 | P.DS_ITS ---
History of Present Illness Date Patient Seen: 08/10/18 Time Patient Seen: 08:42 Chief complaint: sever abdominal pain and vomiting Narrative: 53-year-old female status post laparotomy in approximately April 2018 for significant small-bowel obstruction subsequently complicated by multiple recurrent partial small-bowel obstructions requiring multiple hospital admissions for bowel rest, nasogastric tube decompression, and IV fluid support. She also required TPN throughout due to prolonged NPO status. She subsequent return with yet again another partial small bowel obstruction, nausea, vomiting, and severe crampy abdominal pain with distention with examination and evaluation consistent with yet another recurrent partial small bowel obstruction. At that time she had at least for readmissions for recurrent partial small bowel obstruction and required attempts at laparotomy in approximately June 2018 but was found to have an extremely hostile abdomen with inability to completely mobilize the bowel without undue risk of injury. 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 She actually did quite well and was healing nicely at home but returned to our emergency department within the last couple of weeks or so with new onset crampy abdominal pain, nausea, and bilious emesis. Once again she had evidence of recurrent small bowel obstruction was admitted. Discharge Providers Date of admission: 07/23/18 13:51 Discharge Date: 08/10/18 Consults: 07/23/18 14:04 Consult to Discharge Planning Routine Comment: 08/06/18 09:57 Consult to Physician Routine Comment: Consulting Provider: Rd Sharma Reason for consultation: vertigo Has provider been notified: Yes Discharge provider: Tate Levy MD Summary Discharge Diagnosis: Enterocutaneous fistula complicating laparotomy, resolved Superficial abdominal wound infection, possible stitch abscess, showing mixed skin delfin on culture, resolved Multiple recurrent small bowel obstruction, resolved Depression, chronic Moderate protein calorie malnutrition, improved Vertigo, resolved Status post exploratory laparotomy x2 with lysis of adhesions Status post placement of Mago gastrostomy tube Anxiety disorder (Acute) Morbid obesity with BMI of 45.0-49.9, adult (Acute) Small bowel obstruction due to adhesions (Acute) HTN (hypertension) (Chronic) Migraine (Chronic) Postoperative ileus (Resolved) Status post exploratory laparotomy (Acute) Status post appendectomy (Resolved) Status post hysterectomy (Resolved) Hospital Course: Patient was readmitted as above with bowel obstruction. Gastrostomy tube was left to gravity and she was placed on bowel rest. She was continued on her usual TPN that she had been receiving at home. Electrolytes were meticulously followed and these normalized. She has been stable on her current TPN formula for at least 1 week now and has returned to her cycle regimen without issue. No hyperglycemia. She is receiving lipids every other day. However, the patient continued to have ongoing abdominal distention with nausea and bilious emesis. Symptoms were controlled but she had significant bilious output in the gastrostomy tube. Small-bowel follow-through with G astrografin was attempted through the gastrostomy tube but she showed evidence of complete small bowel obstruction distally at that time. After 2-3 days the contrast eventually was reabsorbed and passed into the colon. However, she required nasogastric tube decompression to assist with this process given ongoing significant voluminous bilious emesis. Eventually the nasogastric tube was discontinued as her symptoms resolved. She was maintained on minimal oral intake with shoe clear liquids for oral comfort however. She tolerated this well and gastrostomy output diminished. She is passing flatus at the time of discharge. In fact, she has also had several small minimally formed bowel mov ements but with no regularity. She did have some vertigo of unclear etiology. This was felt to be due to significant narcotic requirement and her fentanyl patch was discontinued. Otolaryngology consultation was obtained which showed no obvious pathology, and the patient began to improve significantly with discontinuation of the narcotic patch as above along with intermittent dose of meclizine. She is ambulating but will continue her physical therapy and occupational therapy as an outpatient due to her relative protein calorie malnutrition and debilitation from multiple hospital stays. During this admission she did develop a superficial wound abscess with mild cellulitis that was drained at the bedside and felt initially to be consistent with new enterocutaneous fistula although the output from the old fistula tract had essentially resolved in her fistula catheter had been discontinued. Cultures are as above but showed only mixed delfin. She received wound packing for approximately 1 week and then this was discontinued as the cellulitis, abscess, and subcutaneous cavity resolved and healed nicely. She was then taken for fistulogram in the radiology department which actually showed only a small subcutaneous pocket consistent with the wound infection/abscess but no evidence of enterocutaneous fistula. The fistulous tract had clearly closed at this time. In addition, the wound has essentially closed as well and there is only a minimal few mm of granulation tissue left near the umbilicus that I expect will epithelialize over the next week or 2. She responded nicely to intravenous antibiotics for about 1 week as the wound healed and the infection resolved. Antibiotics have been discontinued several days prior to discharge and she tolerated this well with no evidence of recurrent infection. In fact, her white blood cell count of been completely normal with no significant left shift, and procalcitonin levels are also normal. She has subsequently remained completely afebrile and hemodynamically stable as well. Given her significant improvement she is discharged home today with resumption of her home TPN, home health services, simple dry gauze dressing over the wound, gastrostomy tube to drainage, and limited clear liquid oral intake as before. She will also continue her physical therapy and occupational therapy as an outpatient. She will follow up in the surgery clinic next week and then weekly thereafter. In addition, given her significant complex surgical history we have initiated outpatient referral and consultation to the [facility] general surgery department in [place], [place] in the event that she would require any further surgical procedure for her abdominal issues. This will also preserve her continuity of care since she understands that I will be leaving this general surgery practice within the next month or so. I am hopeful that she will continue to heal accordingly and have no further issues with bowel obstructions that will require any type of abdominal surgery. Nevertheless, she will then have establish care at a tertiary center which I believe would be appropriate in the event she does require any future surgeries of that nature. She is agreeable to that plan. All questions were answered to her satisfaction, and she voiced understanding. Orders were written. However, she understands to call or return sooner at any time if she has new issues with nausea, vomiting, progressive pain, fever, chills, or recurrent wound drainage. Status at Discharge Cognitive/behavioral status at discharge: Alert, oriented x3 Remains chronically depressed and anxious, however, but symptoms are well controlled with her Ativan and citalopram Functional status at discharge: independent ambulation Overall status at discharge: patient is not back to baseline Time Spent with Patient Greater than 30 minutes Exam Vital Signs (past 8 hours): - 08/10/18 01:11 08/10/18 01:24 08/10/18 06:44 Temperature 97.5 F L 97.9 F Pulse Rate 77 73 Respiratory Rate 18 18 Blood Pressure 118/67 100/55 L Pulse Oximetry 97 96 97 Oxygen Delivery Method Room Air Oxygen Flow Rate 0 Narrative Exam Narrative: Well-nourished well-developed moderately obese female in no acute distress. Alert oriented x3 Sclera nonicteric Neck is supple Chest clear to auscultation bilaterally with regular rate rhythm. No murmurs. No wheezes. No crackles. No flank tenderness Abdomen is nondistended. She has bowel sounds throughout. Gastrostomy tube site is clean, dry, and intact without erythema. Gastrostomy tube drainage is only several cc per shift but bilious in nature. Output increases slightly when she takes oral clear liquids as anticipated. Abdomen is otherwise soft and minimally tender to palpation only at the incision. Certainly no guarding or rebound. No masses. Midline wound is closing nicely with minimal granulation left near the umbilicus. Wound is otherwise closed. Former abscess cavity at the superior aspect of the incision is also closing nicely with excellent granulation in the remaining tract. No significant drainage of any type noted at the wound. Surrounding skin of the entire abdominal wall is clean without evidence of cellulitis or ulceration. Extremities show no clubbing, cyanosis, or edema Objective Imaging CT scan - abdomen: Radiologist's impression: Patient had CT scans at admission and repeated thereafter which showed no evidence of intra-abdominal abscess or free air. There was normal inflammatory postoperative changes as anticipated. No evidence of compromised bowel or other issues. Subsequent small-bowel follow-through as described as above. Repeat plain abdominal x-rays following small-bowel follow-through showed a ventral resolution of dilated small bowel and air-fluid levels with passage of the contrast. Air and stool were seen in the colon. Labs Result Diagrams: 08/08/18 06:30 08/08/18 06:30 Discharge Plan Discharge Plan Patient Disposition: Home Health Service Transfer to: [facility] Discharge comment: Patient discharged home with home health several times per week Fistula catheter has been discontinued and fistula is now closed Wound care consists only of dry gauze dressing once daily and as needed Continue daily TPN cycle 12 hr on and 12 hr off with current formula as provided to [facility] Routine PICC line care and flushes Will plan to continue physical therapy and occupational therapy at home Gastrostomy tube remains to gravity drainage with intermittent clamping as t olerated for medications and travel Patient remains on clear liquid diet with volume limitations of 500 mL per every 8 hr Discharge Med Rec/Prescriptions Prescriptions: New meclizine 12.5 mg Tablet 25 mg PO TID PRN (Reason: Vertigo) Qty: 60 RF: 0 diphenhydramine HCl [Allergy (diphenhydramine)] 25 mg Tablet 25 mg PO Q6HR PRN (Reason: Itching) Qty: 30 RF: 0 pantoprazole 40 mg tablet,delayed release (DR/EC) 40 mg PO DAILY Qty: 30 RF: 1 Continued sennosides [Senokot] 8.6 mg tablet 8.6 mg PO BEDTIME Qty: 10 RF: 1 acetaminophen 325 mg Tablet 650 mg PO Q6HR PRN (Reason: As Needed For Fever/Mild Pain) Qty: 60 RF: 1 citalopram 20 mg Tablet 20 mg PO DAILY Qty: 30 RF: 1 lisinopril 10 mg Tablet 10 mg PO DAILY Qty: 30 RF: 1 lorazepam 1 mg Tablet 1 mg PO Q4HR PRN (Reason: Anxiety) Qty: 30 RF: 1 morphine 15 mg tablet 15 mg PO Q4-6H PRN (Reason: pain) Qty: 40 RF: 0 ondansetron 4 mg Tablet,Disintegrating 4 mg Sublingual Q4HR PRN (Reason: Nausea) Qty: 30 RF: 0 Discontinued fentanyl 25 mcg/hr patch 72 hour 1 patch Transdermal Q72H Qty: 5 RF: 0 Follow up/Referrals: Tate Levy MD [Physician] - 08/16/18 9:00 am Provider Discharge Instructions Diet: Clear Liquid Diet comment: Patient to limit intake to 500 mL per every 8 hr Activity: As tolerated Other treatments: TPN as per formula provided with prescriptions Skin/Wound/Dressing Care Report to your healthcare provider any signs of infection, such as:: chills, fever, night sweats, increased pain, unusual drainage and unusual redness Dressin x 4 dry gauze dressing over midline incision once daily and as needed for soilage Other wound treatment: None Discharge Data Attending Provider: Kary Mcgowan Admit Date/Time: 07/23/18 13:51
--- NOTE | 2018-08-10 14:03 | PC.NURSE ---
Pt ready for discharge home with friend. Discharge care has been confirmed with [facility] and [facility]. Went over d/c instructions with Pt - discussed d/c meds, time of last dose, fluid restriction of 500cc per 8 hours, wound care, and reviewed stroke education. Pt denies further questions and is ready to be taken out. Pt out via w/c by RN [employer] with friend and all belongings.
--- NOTE | 2018-08-10 15:37 | CM.DPNOTE ---
Reviewed DCP w/ Dr Levy and on day of DC, Monday. DC order placed today. Updated Kiran w/[facility], he can access clinical information and they have all docs/Rx needed at this time and will f/u w/pt once she is home. TC placed to [facility], alerted her to pt's DC and faxed DC summary and resume HH order per request. [facility] and [facility] notified as stated above and both stating no addtl. information or clinical docs needed. Met w/pt, friend at bedside, she is very eager to go home and states no addtl. needs. P: DC home today w/ family via pov, alexandro RN/PT/OT, wound care, [facility] for TPN management, close outpt f/u w/ Dr Levy and eventual f/u w/ surgery at per Dr Levy. BRENDAN Verde
== END 2018-08-10 14:05 | disposition home health service (06) | DRG 247 ==
LOC: ED 13:36 → AC 16:07
PROVIDERS: Specialist; Surgery; Admitting Provider Surgery; Emergency Provider Emergency Medicine; Visit Provider Surgery
DX: K56.50 Intestinal adhesions [bands], unspecified as to partial versus complete obstruction (principal); K63.2 Fistula of intestine; E44.0 Moderate protein-calorie malnutrition; Z68.36 Body mass index [BMI] 36.0-36.9, adult; T81.41XA Infection following a procedure, superficial incisional surgical site, initial encounter; F41.9 Anxiety disorder, unspecified; I10 Essential (primary) hypertension
CPT/HCPCS: 36415; 36592; 71045; 74021; 74022; 74250; 76080; 80048; 80053; 80202; 81003; 82962; 83605; 83735; 84100; 84145; 85025; 85610; 85730; 87070; 87205; 96374; 96375; 96376; 99283; 99285; B4189; C9113; J1170; J1200; J1650; J2060; J2405; J2765; J3370; J3480; S0077

== ENCOUNTER 2018-08-15 17:41 | Inpatient (IN) | payer OTHER, MEDICAID, SELFPAY ==
[2018-07-23 18:17] VITALS: BMI 34.1
[2018-08-15] VITALS (7 sets, daily range): BP systolic 113–161; BP diastolic 68–105; PULSE 79–107; RESP 16–20; TEMP 36.3–37.2; O2SAT 96–98; BMI 38.2
--- NOTE | 2018-08-15 18:07 | ED.ABDPAIN ---
HPI - Abdominal Pain General Chief Complaint: Abdominal Pain Stated Complaint: ABD PAIN, VOMITING Time Seen by Provider: 08/15/18 18:06 Source: patient Mode of arrival: ambulatory Limitations: no limitations History of Present Illness HPI narrative: The patient presents with abdominal pain and nausea/vomiting. The patient has unfortunate history of multiple small-bowel obstructions. She is required to surgeries in the past for bowel obstruction, her only other abdominal surgery was an appendectomy greater than 10 years ago. Along with the multiple small-bowel obstructions she has also previously developed an enterocutaneous fistula and has been managed at home with G-tube decompression and TPN. She was recently released from the hospital for her most recent bout of small-bowel obstruction. The G-tube seems to be function intermittently, at times appearing clogged. With emesis today there is no hematemesis. She did have 1 bowel movement today, diarrhea without blood. With her current symptoms she has substantial abdominal pain. She denies fever or chills. She has no URI symptoms, chest pain, cough or dyspnea. She has no urinary complaints. She is well known to the local surgery group due to frequent interactions. Related Data Previous Rx's Medication Instructions Recorded acetaminophen 650 mg PO Q6HR PRN #60 tab 08/10/18 citalopram 20 mg PO DAILY #30 tab 08/10/18 diphenhydramine HCl [Allergy 25 mg PO Q6HR PRN #30 tab 08/10/18 (diphenhydramine)] lisinopril 10 mg PO DAILY #30 tab 08/10/18 lorazepam 1 mg PO Q4HR PRN #30 tab 08/10/18 meclizine 25 mg PO TID PRN #60 tab 08/10/18 morphine 15 mg PO Q4-6H PRN #40 tab 08/10/18 ondansetron 4 mg SUBLINGUAL Q4HR PRN #30 tab 08/10/18 pantoprazole 40 mg PO DAILY #30 tab 08/10/18 sennosides [Senokot] 8.6 mg PO BEDTIME #10 tab 08/10/18 Allergies Allergy/AdvReac Type Severity Reaction Status Date / Time Penicillins Allergy Intermediate Hives Verified 07/23/18 11:27 ranitidine [From Zantac] Allergy Intermediate Hives Verified 07/23/18 11:27 Review of Systems Review of Systems ROS Unobtainable: All systems reviewed & are unremarkable except as noted in HPI and below Constitutional Denies chills, Reports fatigue, Denies fever(s), Denies headache(s), Denies lethargy and Denies weakness ENT Ears, Nose, Mouth, and Throat: Denies headache(s), Denies sinus pressure and Denies sore throat Cardiovascular Denies chest pain, Denies irregular heart rhythm, Denies lightheadedness, Denies palpitations, Denies dyspnea, Denies dyspnea on exertion and Denies orthopnea Respiratory Denies cough, Denies dyspnea, Denies dyspnea on exertion and Denies wheezing Gastrointestinal Gastrointestinal: Reports abdominal pain, Reports cramping, Reports diarrhea, Reports nausea, Reports vomiting and Denies hematemesis Genitourinary Denies dysuria Musculoskeletal Denies back pain, Denies muscle weakness and Denies numbness Integumentary/Breasts Denies erythema and Denies rash Neurologic Denies confusion, Denies headache(s), Denies numbness and Denies weakness Psychiatric Denies anxiety, Denies confusion and Denies depression Endocrine Reports fatigue and Denies palpitations Allergic/Immunologic Denies wheezing [facility] Medical History Anxiety disorder (Acute) Morbid obesity with BMI of 45.0-49.9, adult (Acute) Small bowel obstruction due to adhesions (Acute) HTN (hypertension) (Chronic) Migraine (Chronic) Postoperative ileus (Resolved) Surgical History Status post exploratory laparotomy (Acute) Status post appendectomy (Resolved) Status post hysterectomy (Resolved) Family History Mother Hypertension Diabetes mellitus Father Cancer Social History household members: significant other and family Smoking Status: Former smoker Social History household members: significant other and family Smoking Status: Former smoker Exam Initial Vital Signs Initial Vital Signs: Vital Signs Temperature 99.0 F 08/15/18 17:53 Pulse Rate 106 H 08/15/18 17:53 Respiratory Rate 18 08/15/18 17:53 Blood Pressure 158/100 H 08/15/18 17:53 Pulse Oximetry 98 08/15/18 17:53 Const General: cooperative and well developed Nutritional Appearance: well nourished Orientation: alert, awake, oriented x3 and not confused [facility] Head: normocephalic and atraumatic Ears: external ears normal and TM's normal bilaterally Nose: external nose normal and No nasal discharge Face and sinus: sinuses nontender, face symmetric, no sinus tenderness and No dry mucous membranes Mouth: oral mucosae normal and moist mucous membranes Teeth and gingiva: dentition normal Throat: tonsils normal and uvula midline Eyes Conjunctivae: conjunctivae normal (No icterus) Chest Chest: normal inspection of the chest Resp Effort & Inspection: normal respiratory effort, able to speak in complete sentences and no respiratory distress Auscultation: clear to auscultation bilaterally, no rales, no rhonchi and no wheezes Cardio Rate: regular rate Rhythm: regular rhythm Heart Sounds: no click, no gallops, no murmurs and no rubs Pulses: normal peripheral pulses GI Inspection: non-distended, large pannus and obesity Palpation: soft, no hepatosplenomegaly, No guarding, No pulsatile mass and No tender (Generalized) Auscultation: other (Rushing bowel sounds) Other: The G-tube insertion site is intact. There is drainage in the bag. Back/Spine/Pelvis Back: No CVA tenderness Skin General: no rashes or lesions noted and No erythema Neuro General: alert, oriented x3, gait normal and no focal motor deficits Speech: speech normal Course Course Narrative: The patient has a history of recurrent bowel obstructions. Back exam, and x-ray findings she once again has a bowel obstruction. She has been treated with IV fluids, Reglan and Dilaudid here in the ER. This is helped her symptoms of pain and vomiting. I discussed her care with the on-call surgeon, Dr. Chris. The patient be admitted to the surgery service under Dr. Chris. Orders Ordered: ED Orders 08/15/18 18:32 Complete Blood Count AUTO DIFF Stat Comprehensive Metabolic Panel Stat Lipase Stat Partial Thromboplastin Time Stat Prothrombin Time INR Stat 08/15/18 18:35 XR acute abdomen series Stat Hydromorphone HCl (Dilaudid) 1 mg IV Q4HR PRN PRN Reason: Abdominal pain Sodium Chloride (Normal Saline 0.9%) 1,000 mls @ 150 mls/hr IV CONT MUKUL Metoclopramide HCl (Reglan) 10 mg IV Q6HR PRN PRN Reason: Nausea And Vomiting Discontinued Medications Diphenhydramine HCl (Benadryl) 25 mg IV NOW ONE Stop: 08/15/18 18:36 Last Admin: 08/15/18 18:40 Dose: 25 mg Hydromorphone HCl (Dilaudid) 1 mg IV NOW ONE Stop: 08/15/18 18:36 Last Admin: 08/15/18 18:40 Dose: 1 mg Sodium Chloride (Normal Saline 0.9%) 1,000 mls @ 1,000 mls/hr IV BOLUS ONE Stop: 08/15/18 19:33 Last Infusion: 08/15/18 19:47 Dose: 0 mls/hr Admin: 08/15/18 18:40 Dose: 1,000 mls/hr Metoclopramide HCl (Reglan) 10 mg IV NOW ONE Stop: 08/15/18 18:37 Last Admin: 08/15/18 18:40 Dose: 10 mg Ondansetron HCl (Zofran) 4 mg IV NOW ONE Stop: 08/15/18 18:12 Last Admin: 08/15/18 19:26 Dose: Not Given Vital Signs - 8 hr 08/15/18 17:53 08/15/18 18:00 08/15/18 19:10 Temperature 99.0 F Pulse Rate 106 H 107 H 88 Respiratory Rate 18 18 16 Blood Pressure 158/100 H Blood Pressure [Right Arm] 161/105 H 153/90 H Pulse Oximetry 98 96 98 08/15/18 20:17 Temperature Pulse Rate 99 H Respiratory Rate 16 Blood Pressure Blood Pressure [Right Arm] 113/98 H Pulse Oximetry 98 MDM - Abdominal Pain Lab Data Result diagrams: 08/15/18 18:32 08/15/18 18:32 Lab Results 08/15/18 08/15/18 08/15/18 Range/Units 18:32 18:32 18:32 WBC 7.5 (4.5-11.0) X10^3/uL RBC 4.38 (4.0-5.2) X10^6/uL Hgb 11.6 L (12.0-16.0) g/dL Hct 35.2 L (36-46) % MCV 80.4 (80-100) fL MCH 26.5 (26-34) PG MCHC 33.0 (30-36) % RDW 18.0 H (11.6-14.8) % Plt Count 427 H (150-400) X10^3/uL Neut % (Auto) 74.3 (50-75) % Lymph % (Auto) 17.2 L (25-40) % Frio % (Auto) 7.4 (3-14) % Eos % (Auto) 0.1 L (2-4) % Baso % (Auto) 1.0 (0-2) % Neut # (Auto) 5600 (4544-5688) /uL Lymph # (Auto) 1300 (8900-1788) /uL Frio # (Auto) 600 (0-900) /uL Eos # (Auto) 0 (0-450) /uL Baso # (Auto) 100 (0-100) /uL PT 15.3 H (10.1-12.7) SECONDS INR 1.3 (0.9-1.3) APTT 30 D (26.4-36.2) SECONDS Sodium 136 L (137-145) mmol/L Potassium 3.8 (3.4-5.1) mmol/L Chloride 100 (98-107) mmol/L Carbon Dioxide 24 (22-32) mmol/L BUN 22 H (7-17) mg/dL Creatinine 0.70 (0.52-1.04) mg/dL Estimated GFR > 60.0 (>60) mL/min BUN/Creatinine Ratio 31.4 H (6-22) Glucose 139 H (70-100) mg/dL Calcium 9.6 (8.4-10.2) mg/dL Total Bilirubin 0.4 (0.2-1.3) mg/dL AST 29 (14-36) IU/L ALT 21 (9-52) IU/L Alkaline Phosphatase 88 (38-126) U/L Total Protein 8.2 (6.3-8.2) g/dL Albumin 3.9 (3.5-5.0) g/dL Globulin 4.3 H (1.7-4.1) g/dL Albumin/Globulin Ratio 0.9 L (1.0-2.8) Lipase 93 (23-300) U/L Discharge Plan Departure Patient Disposition: Admitted As Inpatient Clinical Impression: SBO (small bowel obstruction) Prescriptions: No Action meclizine 12.5 mg Tablet 25 mg PO TID PRN (Reason: Vertigo) Qty: 60 RF: 0 diphenhydramine HCl [Allergy (diphenhydramine)] 25 mg Tablet 25 mg PO Q6HR PRN (Reason: Itching) Qty: 30 RF: 0 sennosides [Senokot] 8.6 mg tablet 8.6 mg PO BEDTIME Qty: 10 RF: 1 acetaminophen 325 mg Tablet 650 mg PO Q6HR PRN (Reason: As Needed For Fever/Mild Pain) Qty: 60 RF: 1 citalopram 20 mg Tablet 20 mg PO DAILY Qty: 30 RF: 1 pantoprazole 40 mg tablet,delayed release (DR/EC) 40 mg PO DAILY Qty: 30 RF: 1 lisinopril 10 mg Tablet 10 mg PO DAILY Qty: 30 RF: 1 lorazepam 1 mg Tablet 1 mg PO Q4HR PRN (Reason: Anxiety) Qty: 30 RF: 1 morphine 15 mg tablet 15 mg PO Q4-6H PRN (Reason: pain) Qty: 40 RF: 0 ondansetron 4 mg Tablet,Disintegrating 4 mg Sublingual Q4HR PRN (Reason: Nausea) Qty: 30 RF: 0
--- NOTE | 2018-08-15 18:35 | DI.RAD.S_ITS ---
PROCEDURE: XR ACUTE ABDOMEN SERIES INDICATIONS: Abd pain with vomiting. Recurrent SBO. TECHNIQUE: One view chest and two views of the abdomen were acquired. COMPARISON: [facility], CR, XR ACUTE ABDOMEN SERIES, 08/01/2018, 8:42. [facility], CR, XR ABDOMEN 3V, 08/02/2018, 5:17. FINDINGS: Surgical changes and devices: None. Chest: Lungs are clear. Heart size is normal. No pleural effusions. No pneumoperitoneum. Abdomen: Small bowel dilatation with air-fluid levels. No suspicious calcifications. Visualized solid organ contours appear normal. Bones: No suspicious bony lesions. IMPRESSION: Small bowel obstruction. Dictated by: Elif Peña M.D. on 08/15/2018 at 19:35 Approved by: Elif Peña M.D. on 08/15/2018 at 19:35
[2018-08-15] MEDS: HYDROMORPHONE 1 MG INJ IV ×2 (18:40→20:47)
[2018-08-15] MEDS: METOCLOPRAMIDE 10 MG/2 ML INJ IV (18:40)
[2018-08-15] MEDS: SODIUM CHLORIDE 0.9% 1,000 ML 1000 ML IV (18:40)
[2018-08-15] MEDS: diphenhydrAMINE 50 MG/ML VIAL 25 MG IV (18:40)
[2018-08-15 18:43] LABS: Add Manual Diff / Slide Review NO; Basophils Absolute Auto 100 /uL (0-100); Eosinophils Absolute Auto 0 /uL (0-450); Eosinophils Percent Auto 0.1 % (2-4); Hematocrit 35.2 % (36-46); Hemoglobin 11.6 g/dL (12.0-16.0); Lymphocytes Absolute Auto 1300 /uL (1100-4500); Lymphocytes Percent Auto 17.2 % (25-40); Mean Corpuscular Hemoglobin 26.5 PG (26-34); Mean Corpuscular Volume 80.4 fL (80-100); Monocytes Absolute Auto 600 /uL (0-900); Monocytes Percent Auto 7.4 % (3-14); Neutrophils Absolute Auto 5600 /uL (1500-7000); Neutrophils Percent Auto 74.3 % (50-75); Platelet Count 427 X10^3/uL (150-400); Red Blood Cell Count 4.38 X10^6/uL (4.0-5.2); White Blood Cell Count 7.5 X10^3/uL (4.5-11.0)
[2018-08-15 18:58] LABS: Alanine Aminotransferase 21 IU/L (9-52); Albumin 3.9 g/dL (3.5-5.0); Albumin Globulin Ratio 0.9 (1.0-2.8); Alkaline Phosphatase 88 U/L (38-126); Aspartate Aminotransferase 29 IU/L (14-36); BUN Creatinine Ratio 31.4 (6-22); Bilirubin Total 0.4 mg/dL (0.2-1.3); Blood Urea Nitrogen 22 mg/dL (7-17); Calcium 9.6 mg/dL (8.4-10.2); Carbon Dioxide 24 mmol/L (22-32); Chloride 100 mmol/L (98-107); Estimated Glomerular Filt Rate > 60.0 mL/min (>60); Globulin 4.3 g/dL (1.7-4.1); Glucose 139 mg/dL (70-100); HEMOLYSIS 29 (0-50); Lipase 93 U/L (23-300); Potassium 3.8 mmol/L (3.4-5.1); Sodium 136 mmol/L (137-145); Total Protein 8.2 g/dL (6.3-8.2)
[2018-08-15 19:02] LABS: INR 1.3 (0.9-1.3); Prothrombin Time 15.3 SECONDS (10.1-12.7)
[2018-08-15 19:04] LABS: PTT Partial Thromboplastin Tim 30 SECONDS (26.4-36.2)
--- NOTE | 2018-08-15 21:58 | P.HP_ITS ---
History of Present Illness Date Patient Seen: 08/15/18 Time Patient Seen: 21:30 Chief complaint: ABD PAIN, VOMITING Narrative: The patient is a woman who has had multiple abdominal procedures including an appendectomy, a hysterectomy about 15 years ago followed by an adhesiolysis 04/25/2018 and a 2nd adhesiolysis 06/13/2018. 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 She developed other fistula but they do not appear to connect to the intestine. Recent fistulogram performed failed to show any connection and appears they knee are isolated to the skin and the anterior abdominal wall. She has been in and out of the hospital with symptoms of a bowel obstruction. She was discharged on 08/10 after an extended hospitalization during which time she was fed intravenously. She was discharged on continued TPN with the ability to drink fluids but was to drain her stomach with a gastrostomy tube. She developed crampy abdominal pain that precipitated this visit to the ER. She was found to have air-fluid levels in her small intestine suggestive of a bowel obstruction. She had a bowel movement today actually. She said it was diarrheal stool. But she has been nauseated and vomiting. Her gastric drainage tube does not seem to work all the time. She is brought in for resuscitation and to see if we can improve on her condition. Patient History Medical History Anxiety disorder (Acute) Morbid obesity with BMI of 45.0-49.9, adult (Acute) Small bowel obstruction due to adhesions (Acute) HTN (hypertension) (Chronic) Migraine (Chronic) Postoperative ileus (Resolved) Surgical History Status post exploratory laparotomy (Acute) Status post appendectomy (Resolved) Status post hysterectomy (Resolved) Family History Mother Hypertension Diabetes mellitus Father Cancer Social History household members: significant other and family Smoking Status: Former smoker Family & Social History Family History Mother Hypertension Diabetes mellitus Father Cancer Social History: household members significant other,family Tobacco & Substance use: Smoking Status Former smoker alcohol intake frequency holiday/special occasion Substance Use Type does not use Meds Home Medications Medication Instructions Recorded Confirmed Type acetaminophen 650 mg PO Q6HR PRN #60 tab 08/10/18 08/15/18 Rx citalopram 20 mg PO DAILY #30 tab 08/10/18 08/15/18 Rx diphenhydramine HCl [Allergy 25 mg PO Q6HR PRN #30 tab 08/10/18 08/15/18 Rx (diphenhydramine)] lisinopril 10 mg PO DAILY #30 tab 08/10/18 Rx lorazepam 1 mg PO Q4HR PRN #30 tab 08/10/18 08/15/18 Rx meclizine 25 mg PO TID PRN #60 tab 08/10/18 08/15/18 Rx morphine 15 mg PO Q4-6H PRN #40 tab 08/10/18 08/15/18 Rx ondansetron 4 mg SUBLINGUAL Q4HR PRN #30 tab 08/10/18 08/15/18 Rx pantoprazole 40 mg PO DAILY #30 tab 08/10/18 08/15/18 Rx sennosides [Senokot] 8.6 mg PO BEDTIME #10 tab 08/10/18 08/15/18 Rx Allergies Allergy/AdvReac Type Severity Reaction Status Date / Time Penicillins Allergy Intermediate Hives Verified 07/23/18 11:27 ranitidine [From Zantac] Allergy Intermediate Hives Verified 07/23/18 11:27 Review of Systems Review of Systems Patient denies any breathing issues like cough cold or asthma. She stop smoking when she had her last operation. She has no chest pain or heart problems she is aware of. No black or bloody bowel movements. No seizures or blackouts. She has been getting dizzy and that was treated with meclizine with a fairly good result. Exam Vital Signs (past 8 hours): - 08/15/18 17:53 08/15/18 18:00 08/15/18 19:10 Temperature 99.0 F Pulse Rate 106 H 107 H 88 Respiratory Rate 18 18 16 Blood Pressure 158/100 H Blood Pressure [Right Arm] 161/105 H 153/90 H Pulse Oximetry 98 96 98 08/15/18 20:17 08/15/18 21:33 Temperature Pulse Rate 99 H 87 Respiratory Rate 16 18 Blood Pressure Blood Pressure [Right Arm] 113/98 H 120/68 Pulse Oximetry 98 96 Oxygen Delivery Method Room Air Narrative Exam Narrative: Patient in no distress at this time. Her eyes are nonicteric. Lungs are clear to auscultation. No rales or rhonchi. Heart regular rate and rhythm without murmur or gallop. Her PICC line site in her right upper arm is healthy without cellulitis. Abdomen is protuberant soft. She has some small fistulous tracts draining purulent brownish material. Most of her incision is closed. No cellulitis. She has no tenderness at this time. No cyanosis of her extremities. She is alert and oriented. There were affect is flat she does not seems depressed as the last time I saw her. Objective Imaging Abdominal x-ray: My impression: Air fluid levels. Mild dilatation of the small bowel. X- rays are difficult to compare with prior films but do not appear any worst to my eye. Labs Result Diagrams: 08/15/18 18:32 08/15/18 18:32 Labs: Laboratory Results - last 24 hr 08/15/18 08/15/18 08/15/18 18:32 18:32 18:32 WBC 7.5 RBC 4.38 Hgb 11.6 L Hct 35.2 L MCV 80.4 MCH 26.5 MCHC 33.0 RDW 18.0 H Plt Count 427 H Neut % (Auto) 74.3 Lymph % (Auto) 17.2 L [place] % (Auto) 7.4 Eos % (Auto) 0.1 L Baso % (Auto) 1.0 Neut # (Auto) 5600 Lymph # (Auto) 1300 [place] # (Auto) 600 Eos # (Auto) 0 Baso # (Auto) 100 PT 15.3 H INR 1.3 APTT 30 D Sodium 136 L Potassium 3.8 Chloride 100 Carbon Dioxide 24 BUN 22 H Creatinine 0.70 Estimated GFR > 60.0 BUN/Creatinine Ratio 31.4 H Glucose 139 H Calcium 9.6 Total Bilirubin 0.4 AST 29 ALT 21 Alkaline Phosphatase 88 Total Protein 8.2 Albumin 3.9 Globulin 4.3 H Albumin/Globulin Ratio 0.9 L Lipase 93 Assessment & Plan Assessment & Plan narrative: Patient with intermittent bowel obstruction symp toms. I think she is actually doing pretty well but does need to be admitted and rehydrated. Process is underway to transfer her care to the [facility]. At this time I find no evidence or concern for ischemic gut. We will continue her outpatient meds and her TPN. She has been on the same formula for a prolonged period with stable and acceptable limits.
[2018-08-15] MEDS: SODIUM CHLORIDE 0.9% 1,000 ML 150 ML IV (21:59)
[2018-08-15 22:44] LABS: RBC Urine None Seen (0-5/HPF)
[2018-08-15 22:47] LABS: Appearance Urine UA CLEAR; Bilirubin Urine UA NEGATIVE (NEGATIVE); Color Urine UA YELLOW; Glucose Urine UA NEGATIVE (Negative); Ketones Urine UA NEGATIVE (NEGATIVE); Leukocyte Esterase Urine UA NEGATIVE (NEGATIVE); Nitrite Urine UA NEGATIVE (Negative); Occult Blood Urine UA NEGATIVE (Negative); Protein Urine UA NEGATIVE (Negative); Specific Gravity Urine UA 1.015 (1.000-1.035)
--- NOTE | 2018-08-15 22:47 | PC.NURSE ---
Pt arrived at 2148: A&Ox3. 96%RA. slight nausea and abd cramping. abd dressing and gastrostomy dressing cdi. Clamp tube when giving her PO morning meds. oriented pt to the room. call light in reach.
[2018-08-15] MEDS: LORazepam 2 MG/ML SYRINGE 1 MG IV (23:00)
[2018-08-15 23:09] LABS: Bacteria Urine Few (2-10); Culture Indicated Urine Cult Not Indicated; Squamous Epithelial Cell Urine 1-5 /HPF; WBC Urine 1-5/HPF (0-5/HPF)
--- NOTE | 2018-08-16 01:22 | PC.NURSE ---
2300- Pt admitted this evening for abdom pain, naus, vomiting. Has chronic 2 lumen PICC on R upper arm (used at home for TPN therapy, NPO @ baseline); chronic SBO; chronic g-tube in place. Midline wound healing, w/ dry gauze covering. Gauze to be changed qday. note says TPN therapy will start tomorrow per MD note. NS running as ordered into PICC. Diluadid IV used for abdom pain at this time. 0500- Pt CO pain, g-tube leaking. Pt states she applied her own tape at home to keep it secure. Tape removed, tubing cleaned, and chest tube tape applied to keep in place. IV Dilaudid ordered as 2mg, we do not carry 2mg vials, so 1mg vial removed. New order will need to be placed in MAR; aware.
[2018-08-16 04:52] VITALS: BP 132/75; PULSE 76; RESP 18; TEMP 36.6; O2SAT 96
[2018-08-16] MEDS: SODIUM CHLORIDE 0.9% 1,000 ML 150 ML IV ×2 (04:56→12:05)
[2018-08-16] MEDS: HYDROMORPHONE 2 MG INJ 1 MG IV (05:02)
[2018-08-16] MEDS: LORazepam 2 MG/ML SYRINGE 1 MG IV ×3 (07:59→21:11)
[2018-08-16 08:00] VITALS: BP 102/61; PULSE 72; RESP 16; TEMP 36.4; O2SAT 99
--- NOTE | 2018-08-16 08:59 | P.PN_ITS ---
Subjective Date Patient Seen: 08/16/18 Time Patient Seen: 08:54 Interval history: Patient in bed this morning very tearful and emotionally distraught due to readmission within 1 week for recurrent small-bowel obstruction. Obviously, she is quite frustrated by this whole process. She tells me this morning that she was actually doing relatively well at home following her recent discharge last week but then began yesterday to experience crampy abdominal pain in the left lower quadrant region followed by nausea and vomiting. Pain is currently controlled. She is not nauseated at the moment. She states that her gastrostomy tube occasionally will not draining adequately and she feels that this will exacerbate her symptoms. Otherwise she was passing flatus at home. She did have couple small volume loose stools yesterday at home also. No dysuria or hematuria. She is having no issues with her incision with regard to drainage. No subjective fever or chills at any time. Exam Vital Signs (past 8 hours): - 08/16/18 04:52 08/16/18 08:00 Temperature 97.9 F 97.5 F L Pulse Rate 76 72 Respiratory Rate 18 16 Blood Pressure 132/75 102/61 Pulse Oximetry 96 99 Oxygen Delivery Method Room Air Oxygen Flow Rate 0 Narrative Exam Narrative: She remains afebrile with no tachycardia and normal blood pressure. Adequate urine output Regular rate and rhythm without wheezes Abdomen is essentially nondistended and soft today. She is mildly tender in the left lower quadrant region but certainly without guarding or rebound. Gastrostomy tube site is clean, dry, and intact with bilious fluid in the bag. Her midline incision is essentially healed. There is 1 small area of superficial granulation measuring a few mm near the old fistula site below the umbilicus. However the skin is without erythema or edema. The rest of the incision is entirely closed. Extremities show no clubbing or cyanosis Objective Labs Result Diagrams: 08/15/18 18:32 08/15/18 18:32 Labs: Laboratory Results - last 24 hr 08/15/18 08/15/18 08/15/18 18:32 18:32 18:32 WBC 7.5 RBC 4.38 Hgb 11.6 L Hct 35.2 L MCV 80.4 MCH 26.5 MCHC 33.0 RDW 18.0 H Plt Count 427 H Neut % (Auto) 74.3 Lymph % (Auto) 17.2 L [place] % (Auto) 7.4 Eos % (Auto) 0.1 L Baso % (Auto) 1.0 Neut # (Auto) 5600 Lymph # (Auto) 1300 [place] # (Auto) 600 Eos # (Auto) 0 Baso # (Auto) 100 PT 15.3 H INR 1.3 APTT 30 D Sodium 136 L Potassium 3.8 Chloride 100 Carbon Dioxide 24 BUN 22 H Creatinine 0.70 Estimated GFR > 60.0 BUN/Creatinine Ratio 31.4 H Glucose 139 H Calcium 9.6 Total Bilirubin 0.4 AST 29 ALT 21 Alkaline Phosphatase 88 Total Protein 8.2 Albumin 3.9 Globulin 4.3 H Albumin/Globulin Ratio 0.9 L Lipase 93 Urine Color Urine Appearance Urine pH Ur Specific [place] Urine Protein Urine Glucose (UA) Urine Ketones Urine Occult Blood Urine Nitrate Urine Bilirubin Urine Urobilinogen Ur Leukocyte Esterase Urine RBC Urine WBC Ur Squamous Epith Cells Urine Bacteria Ur Culture Indicated? 08/15/18 22:00 WBC RBC Hgb Hct MCV MCH MCHC RDW Plt Count Neut % (Auto) Lymph % (Auto) [place] % (Auto) Eos % (Auto) Baso % (Auto) Neut # (Auto) Lymph # (Auto) [place] # (Auto) Eos # (Auto) Baso # (Auto) PT INR APTT Sodium Potassium Chloride Carbon Dioxide BUN Creatinine Estimated GFR BUN/Creatinine Ratio Glucose Calcium Total Bilirubin AST ALT Alkaline Phosphatase Total Protein Albumin Globulin Albumin/Globulin Ratio Lipase Urine Color Yellow Urine Appearance Clear Urine pH 6.0 Ur Specific [place] 1.015 Urine Protein Negative Urine Glucose (UA) Negative Urine Ketones Negative Urine Occult Blood Negative Urine Nitrate Negative Urine Bilirubin Negative Urine Urobilinogen 1.0 Ur Leukocyte Esterase Negative Urine RBC None seen Urine WBC 1-5/hpf Ur Squamous Epith Cells 1-5 /hpf Urine Bacteria Few (2-10) H Ur Culture Indicated? Cult not indicated Assessment & Plan Assessment & Plan narrative: 53-year-old female with ongoing issues of multiple recurrent partial small-bowel obstructions necessitating hospitalization for pain control and hydration. I suspect this may be an ongoing issue for many months, but in my opinion to reoperate on her abdomen would be fraught with potential significant complications including short gut syndrome, sepsis, recurrent fistulas, or even . We continue to work toward outpatient consultation with the [facility] surgery team in the event that she does require reoperation at some point in the future for ongoing recurring obstructions. For now we will continue her IV fluid resuscitation and analgesia with IV Dilaudid. Restart her TPN per her usual home regimen this evening. I discussed all the above with her, and she voiced understanding. Orders were written.
[2018-08-16 09:24] VITALS: BP 126/78; PULSE 78
[2018-08-16] MEDS: CITALOPRAM 20 MG TABLET PO (09:24)
[2018-08-16] MEDS: LISINOPRIL 10 MG TABLET PO (09:24)
[2018-08-16] MEDS: PANTOPRAZOLE 40 MG PACKET PO (09:24)
[2018-08-16] MEDS: HYDROMORPHONE 1 MG INJ IV ×5 (09:30→22:56)
[2018-08-16] MEDS: ENOXAPARIN 40 MG/0.4 ML SYRINGE SUBCUT (10:29)
[2018-08-16 12:13] VITALS: BP 121/73; PULSE 77; RESP 16; TEMP 36.7; O2SAT 99
[2018-08-16 16:00] VITALS: BP 113/68; PULSE 77; RESP 16; TEMP 36.8; O2SAT 97
[2018-08-16] MEDS: FAT EMULSIONS 50 GM/250 ML EMULSION IV (18:23)
[2018-08-16] MEDS: CALCIUM IV (18:24)
[2018-08-16] MEDS: LYTES IV (18:24)
[2018-08-16] MEDS: SODIUM CHLORIDE 0.9% IV (18:24)
[2018-08-16] MEDS: [UNRECOGNIZED DRUG - OTHER] IV (18:24)
[2018-08-16] MEDS: DEXT IV (18:24)
[2018-08-16 21:00] VITALS: BP 130/82; PULSE 68; RESP 16; TEMP 36.4; O2SAT 97
[2018-08-16] MEDS: diphenhydrAMINE 50 MG/ML VIAL 25 MG IV (21:05)
--- NOTE | 2018-08-17 | DI.RAD.S_ITS ---
PROCEDURE: XR PELVIS 1-2V INDICATIONS: missed bed fell/sat to floor. tender right posterior pelvis TECHNIQUE: Single frontal view of the pelvis acquired. COMPARISON: None. FINDINGS: Bones: No fractures or dislocations. No suspicious bony lesions. Soft tissues: Visualized bowel gas pattern is normal. No suspicious soft tissue calcifications. IMPRESSION: Mild to moderate symmetric hip joint osteoarthritis bilaterally, no trauma found. Somewhat limited quality of visualization, and if there is clinical concern for hip fracture followup by dedicated screening MRI may be warranted. Dictated by: Delroy Flores M.D. on 08/17/2018 at 14:39 Approved by: Delroy Flores M.D. on 08/17/2018 at 14:41
--- NOTE | 2018-08-17 | DI.RAD.S_ITS ---
PROCEDURE: XR ABDOMEN 3V INDICATIONS: Small bowel obstruction TECHNIQUE: One view chest and two views of the abdomen were acquired. COMPARISON: [facility], CR, XR ABDOMEN 3V, 08/02/2018, 5:17. [facility], CR, XR ABDOMEN 3V, 07/28/2018, 7:40. FINDINGS: Surgical changes and devices: None. Chest: Lungs are clear. Heart size is normal. No pleural effusions. No pneumoperitoneum. Abdomen: Bowel gas pattern is nonspecific with mild prominence of small bowel loops that are not gas-distended by size criteria. No suspicious calcifications. Visualized solid organ contours appear normal. Bones: No suspicious bony lesions. IMPRESSION: Nonspecific bowel gas pattern. Mild gas prominence within small bowel loops without true distention or pneumatosis. Large body habitus, depending on the clinical status followed by CT scanning may be warranted. Dictated by: Delroy Flores M.D. on 08/17/2018 at 8:55 Approved by: Delroy Flores M.D. on 08/17/2018 at 8:56
--- NOTE | 2018-08-17 | DI.RAD.S_ITS ---
PROCEDURE: XR LUMBAR SPINE 2-3V INDICATIONS: missed bed fell/sat to the floor. pain LS spine TECHNIQUE: 3 views of the lumbar spine were acquired. COMPARISON: None. FINDINGS: Bones: 5 [id number] vertebrae are present. There is normal bony alignment. No vertebral body compression fractures. No suspicious bony lesions. Degenerative disc disease is present, mild, and best seen at T12-L1 and L1-L2. Soft tissues: Overlying bowel gas pattern is normal. No suspicious soft tissue calcifications. IMPRESSION: No definite trauma seen. Quality visualization is somewhat limited by prominent bowel gas over the abdomen and pelvis on the frontal view. Thoracolumbar junction degenerative disc disease as discussed. Please correlate clinically to determine whether followup by advanced imaging such as MR may be warranted. Dictated by: Delroy Flores M.D. on 08/17/2018 at 14:41 Approved by: Delroy Flores M.D. on 08/17/2018 at 14:42
[2018-08-17 00:09] VITALS: BP 113/66; PULSE 76; RESP 18; TEMP 36.9; O2SAT 94
[2018-08-17] MEDS: HYDROMORPHONE 1 MG INJ IV ×2 (02:08→05:13)
[2018-08-17 04:52] VITALS: BP 131/63; PULSE 73; RESP 18; TEMP 36.3; O2SAT 94
[2018-08-17] MEDS: LORazepam 2 MG/ML SYRINGE 1 MG IV (06:09)
[2018-08-17 06:27] LABS: Add Manual Diff / Slide Review NO; Basophils Absolute Auto 0 /uL (0-100); Basophils Percent Auto 0.8 % (0-2); Eosinophils Absolute Auto 100 /uL (0-450); Eosinophils Percent Auto 2.4 % (2-4); Hematocrit 28.4 % (36-46); Hemoglobin 9.1 g/dL (12.0-16.0); Lymphocytes Absolute Auto 1600 /uL (1100-4500); Lymphocytes Percent Auto 32.4 % (25-40); Mean Corpuscular HGB Conc 32.1 % (30-36); Mean Corpuscular Hemoglobin 26.6 PG (26-34); Mean Corpuscular Volume 82.7 fL (80-100); Monocytes Absolute Auto 500 /uL (0-900); Monocytes Percent Auto 10.5 % (3-14); Neutrophils Absolute Auto 2700 /uL (1500-7000); Neutrophils Percent Auto 53.9 % (50-75); Platelet Count 275 X10^3/uL (150-400); Red Blood Cell Count 3.43 X10^6/uL (4.0-5.2); White Blood Cell Count 5.1 X10^3/uL (4.5-11.0)
[2018-08-17 06:40] LABS: BUN Creatinine Ratio 18.6 (6-22); Blood Urea Nitrogen 13 mg/dL (7-17); Calcium 8.5 mg/dL (8.4-10.2); Carbon Dioxide 24 mmol/L (22-32); Chloride 107 mmol/L (98-107); Estimated Glomerular Filt Rate > 60.0 mL/min (>60); Glucose 120 mg/dL (70-100); HEMOLYSIS < 15 (0-50); Potassium 3.8 mmol/L (3.4-5.1); Sodium 138 mmol/L (137-145)
[2018-08-17] MEDS: PANTOPRAZOLE 40 MG PACKET PO (06:55)
[2018-08-17 08:40] VITALS: BP 116/67; PULSE 74; RESP 16; TEMP 36.8; O2SAT 97
--- NOTE | 2018-08-17 08:57 | PM.DS.1 ---
History of Present Illness Date Patient Seen: 08/17/18 Time Patient Seen: 08:57 Chief complaint: ABD PAIN, VOMITING Narrative: 53-year-old female who presented emergency department 6 days after recent discharge from the hospital with recurrent crampy abdominal pain, nausea, and bilious emesis. Examination and evaluation were consistent with progressive partial small bowel obstruction with which she has had significant difficulties over the last several months following 2 laparotomies. She was admitted for IV fluid resuscitation and pain control. Discharge Providers Date of admission: 08/15/18 21:15 Discharge Date: 08/17/18 Discharge provider: Tate Levy MD Summary Discharge Diagnosis: Recurrent partial small bowel obstruction, improved Enterocutaneous fistula complicating laparotomy, resolved Superficial abdominal wound infection, possible stitch abscess, showing mixed skin delfin on culture, resolved Multiple recurrent small bowel obstruction, resolved Depression, chronic Moderate protein calorie malnutrition, improved Vertigo, resolved Status post exploratory laparotomy x2 with lysis of adhesions Status post placement of [place] gastrostomy tube Anxiety disorder (Acute) Morbid obesity with BMI of 45.0-49.9, adult (Acute) Small bowel obstruction due to adhesions (Acute) HTN (hypertension) (Chronic) Migraine (Chronic) Postoperative ileus (Resolved) Status post exploratory laparotomy (Acute) Status post appendectomy (Resolved) Status post hysterectomy (Resolved) Hospital Course: patient was admitted from the emergency department for IV fluid resuscitation, bowel rest, ongoing gastrostomy tube drainage, and pain control. She received intravenous normal saline and Dilaudid which were effective. By hospital day 2 her symptoms had resolved and she was back to Previous baseline. She has had no issues with fever or chills. Gastrostomy tube continues to drain some bilious fluid. She is passing flatus. Wound continues to heal nicely with only superficial small several mm open area that is granulating. No evidence of fistula tract or infection. She has otherwise been afebrile and hemodynamically stable with no tachycardia normal blood pressure. Adequate urine output. Her laboratory studies have been completely normal as well with no evidence of electrolyte disturbances or renal insufficiency. She was restarted on her usual home cycled TPN regimen which he tolerated well. Because of her improved status she is discharged home on hospital day 2. Resume all previous medications and TPN as previously prescribed. No changes. However, she continues have significant difficulty with emotional lability, depression, and anxiety. I have been unable to control this adequately with citalopram and Ativan. I believe she would benefit from psychiatry consultation. Outpatient consultation has been arranged. I discussed all this with her in extreme detail, and she voiced understanding. She was quite agreeable to the plan. In the interim we have arranged outpatient consultation with [facility] surgery department in the event that she requires ongoing care and eventual reoperation. Hopefully that will not be the case, but they have agreed to see her in consultation in their clinic in [place], [place] on approximately October 08, 2018. she is aware of such. The [facility] clinic will contact her to confirm the exact appointment. She will follow up with me in the surgery Clinic here at [facility] next week. However, she understands to call or return sooner for any recurrent symptoms such as fever, chills, progressive pain or vomiting. Status at Discharge Cognitive/behavioral status at discharge: oriented Functional status at discharge: independent ambulation Overall status at discharge: patient is progressing back to baseline Time Spent with Patient Less than 30 minutes Exam Vital Signs (past 8 hours): - 08/17/18 04:52 08/17/18 08:40 Temperature 97.4 F L 98.2 F Pulse Rate 73 74 Respiratory Rate 18 16 Blood Pressure 131/63 116/67 Pulse Oximetry 94 97 Oxygen Delivery Method Room Air Oxygen Flow Rate 0 Narrative Exam Narrative: Well-nourished well-developed female in no acute distress. Alert oriented x3. Affect is somewhat flat and she remains depressed as above. The depression is clearly not unanticipated given the significant issue she has experienced in the last several months. Sclera nonicteric chest clear to auscultation bilaterally. Regular rate rhythm abdomen soft, nondistended, minimally tender. Gastrostomy tube site is clean and intact. Wound is as above with no evidence of fistula or drainage. No cellulitis or infection. Superficial area granulating nicely. extremities show no clubbing or cyanosis PICC line site is clean, dry, and intact Objective Labs Result Diagrams: 08/17/18 06:02 08/17/18 06:02 Labs: Laboratory Results - last 24 hr 08/17/18 08/17/18 06:02 06:02 WBC 5.1 RBC 3.43 L Hgb 9.1 L Hct 28.4 L MCV 82.7 MCH 26.6 MCHC 32.1 RDW 18.0 H Plt Count 275 Neut % (Auto) 53.9 D Lymph % (Auto) 32.4 [place] % (Auto) 10.5 Eos % (Auto) 2.4 Baso % (Auto) 0.8 Neut # (Auto) 2700 Lymph # (Auto) 1600 [place] # (Auto) 500 Eos # (Auto) 100 Baso # (Auto) 0 Sodium 138 Potassium 3.8 Chloride 107 Carbon Dioxide 24 BUN 13 Creatinine 0.70 Estimated GFR > 60.0 BUN/Creatinine Ratio 18.6 Glucose 120 H Calcium 8.5 repeat abdominal x-rays today demonstrate improved bowel gas pattern with air and stool in the colon. Few minimal residual loops of small bowel or visible but much less dilated with no air-fluid levels. Discharge Plan Discharge Plan Patient Disposition: Home Health Service Transfer to: [facility] Discharge comment: resume home TPN per [facility] beginning this evening no changes in TPN formula no changes to previous medications as recently prescribed Discharge Med Rec/Prescriptions Prescriptions: Continued meclizine 12.5 mg Tablet 25 mg PO TID PRN (Reason: Vertigo) Qty: 60 RF: 0 diphenhydramine HCl [Allergy (diphenhydramine)] 25 mg Tablet 25 mg PO Q6HR PRN (Reason: Itching) Qty: 30 RF: 0 sennosides [Senokot] 8.6 mg tablet 8.6 mg PO BEDTIME Qty: 10 RF: 1 acetaminophen 325 mg Tablet 650 mg PO Q6HR PRN (Reason: As Needed For Fever/Mild Pain) Qty: 60 RF: 1 citalopram 20 mg Tablet 20 mg PO DAILY Qty: 30 RF: 1 pantoprazole 40 mg tablet,delayed release (DR/EC) 40 mg PO DAILY Qty: 30 RF: 1 lorazepam 1 mg Tablet 1 mg PO Q4HR PRN (Reason: Anxiety) Qty: 30 RF: 1 morphine 15 mg tablet 15 mg PO Q4-6H PRN (Reason: pain) Qty: 40 RF: 0 ondansetron 4 mg Tablet,Disintegrating 4 mg Sublingual Q4HR PRN (Reason: Nausea) Qty: 30 RF: 0 lisinopril 10 mg tablet 10 mg PO BEDTIME RF: 0 Follow up/Referrals: Tate Levy MD [Physician] - 03/14/19 ( Please call office for exact appointment date and time) Cami Sinha ARNP [[facility] [employer]] - 2 Weeks (Please call office for exact appointment date and time. My office will forward records prior to your visit.) Provider Discharge Instructions Diet: Clear Liquid Diet comment: limit clear liquid intake to only 500 mL every 8 hr Activity: as tolerated no driving may walk as much as desired and climb stairs may ride in vehicle continue outpatient physical therapy/occupational therapy per previous regimen Other treatments: routine PICC line care and flushes per home health services outpatient consultation referral has been initiated for psychiatry services Skin/Wound/Dressing Care Report to your healthcare provider any signs of infection, such as:: chills, fever, night sweats, increased pain, unusual drainage and unusual redness Dressing: dry gauze dressing around gastrostomy tube and over incision once daily may change dressing as often as needed for soilage Other wound treatment: none Discharge Data Attending Provider: Kelechi Chris Admit Date/Time: 08/15/18 21:15
[2018-08-17 09:29] VITALS: BP 116/67
[2018-08-17] MEDS: ENOXAPARIN 40 MG/0.4 ML SYRINGE SUBCUT (09:29)
[2018-08-17] MEDS: CITALOPRAM 20 MG TABLET PO (09:29)
[2018-08-17] MEDS: LISINOPRIL 10 MG TABLET PO (09:29)
[2018-08-17] MEDS: MORPHINE 10 MG/0.5 ML ORAL SYRINGE PO (10:40)
[2018-08-17] MEDS: LORazepam 1 MG TABLET PO (11:16)
[2018-08-17 12:04] VITALS: BP 121/69; PULSE 83; RESP 16; TEMP 37.2; O2SAT 98
--- NOTE | 2018-08-17 12:20 | CM.IDA ---
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 No Advance Directives on File No History Provided By Patient Medical Record Prior Living Arrangements House Household Members significant other family children Type of transporation used prior to Drives own vehicle admit Independent with ADL's Yes: Needs assist w/wound dressing changes, low activity tolerance Is patient alert and oriented? Yes Needs Assistance With Home Chores / Shopping Comment Wound care Caregiver for Another Yes: Taking care of grandchildren/ CPS case Comment Patient was typically Independent at baseline but since her admit in Apr 2018 pt has been in and out of the hospital for SBO issues and needing assist from family. Patient/Family Preference Home with Home Health Barriers to Discharge No Comment Pt admitted w/abdominal cramping w/recurrent SBO. DC today by Dr Levy. Payer: [facility]. Pt eager to get back home, aware and agreeable to all of Dr Levy's recommendations which are somewhat identical to the resumptions of outpt services ordered upon pt's last DC from . TC to Ayush at [facility]; Updated on pt's DC home and faxed resume HH orders along with DC Summary. TC to Kiran at [facility]; Updated w/DC today, he will check medical record and print summary indicating resumption of TPN. P: DC back home w/ family and friends, [facility], [facility] for TPN, and close outpt f/u w/ Dr Levy. BRENDAN Verde Discharge Plan Home Transportation Arrangement Family Referrals Initiated Home Health
[2018-08-17 12:38] VITALS: BP 176/91; PULSE 95; RESP 18; O2SAT 99
== END 2018-08-17 15:00 | disposition home health service (06) | DRG 247 ==
LOC: ED 20:24 → AC 21:15
PROVIDERS: Surgery; Admitting Provider Specialist; Emergency Provider Emergency Medicine; Visit Provider Specialist
DX: K56.50 Intestinal adhesions [bands], unspecified as to partial versus complete obstruction (principal); F41.9 Anxiety disorder, unspecified; I10 Essential (primary) hypertension; Z93.1 Gastrostomy status; F32.9 Major depressive disorder, single episode, unspecified; E44.0 Moderate protein-calorie malnutrition; Z68.37 Body mass index [BMI] 37.0-37.9, adult; Z87.891 Personal history of nicotine dependence
CPT/HCPCS: 36591; 36592; 72100; 72170; 74021; 74022; 80048; 80053; 81001; 82962; 83690; 85025; 85610; 85730; 96361; 96374; 96375; 99283; 99284; B4189; J1170; J1200; J1650; J2060; J2765; J3480

== ENCOUNTER 2018-09-06 13:22 | Emergency (ER) | payer OTHER, MEDICAID, SELFPAY ==
[2018-08-15 22:02] VITALS: BMI 38.2
[2018-09-06 13:25] VITALS: BP 152/103; PULSE 98; RESP 19; TEMP 37.1; O2SAT 99; BMI 39.4
--- NOTE | 2018-09-06 14:22 | ED_ITS ---
HPI - Abdominal Pain General Chief Complaint: Abdominal Pain Stated Complaint: abd pain/vomiting today Time Seen by Provider: 09/06/18 13:58 Source: patient and old records reviewed Mode of arrival: ambulatory Limitations: no limitations History of Present Illness HPI narrative: Patient is a 53-year-old female presenting with abdominal cramping nausea vomiting. She has recurrent high-grade bowel obstruction she has a gastrotomy tube that is placed secondary to this. She gets home TPN and has a right arm PICC line. She says this just started around 4:00 a.m. she actually had a bowel movement this morning. She says she usually gets these cramps. She was actually seen evaluated at [facility] and just 3 days ago she was told that she is not a surgical candidate until December she must wait for surgery to heal. They actually told her that she may start eating things that are on the approved list so she did have some tuna which she said she did have any problems with she said she had oatmeal as well which she thinks caused the problem. She tried irrigating her gastrostomy tube out and the oatmeal was stuck. And then this problem started. MD complaint: abdominal pain Quality: cramping Radiation: none Related Data Home Medications Medication Instructions Recorded Confirmed lisinopril 10 mg PO BEDTIME 08/15/18 09/06/18 acetaminophen 325 mg PO Q6HR PRN 09/06/18 09/06/18 meclizine 25 mg PO TID PRN 09/06/18 09/06/18 Previous Rx's Medication Instructions Recorded citalopram 20 mg PO DAILY #30 tab 08/10/18 diphenhydramine HCl [Allergy 25 mg PO Q6HR PRN #30 tab 08/10/18 (diphenhydramine)] ondansetron 4 mg SUBLINGUAL Q4HR PRN #30 tab 08/10/18 pantoprazole 40 mg PO DAILY #30 tab 08/10/18 sennosides [Senokot] 8.6 mg PO BEDTIME #10 tab 08/10/18 morphine 15 mg immediate release 15 mg PO Q4-6H PRN #40 tab 08/23/18 tablet lorazepam 1 mg tablet 1 mg PO Q4HR PRN #30 tab 09/03/18 promethazine 25 mg PO Q6H PRN #10 tab 09/06/18 Allergies Allergy/AdvReac Type Severity Reaction Status Date / Time Penicillins Allergy Intermediate Hives Verified 07/23/18 11:27 ranitidine [From Zantac] Allergy Intermediate Hives Verified 07/23/18 11:27 Review of Systems Review of Systems GENERAL: Denies chills, fatigue, malaise, fever, sweats, travel HEENT: Denies sinus pain, ear pain, sore throat, difficulty swallowing, neck pain RESPIRATORY: Denies dyspnea, cough, wheezing, hemoptysis, sputum. CARDIOVASCULAR: Denies chest pain, palpitations, orthopnea, edema GASTROINTESTINAL: See HPI : Denies dysuria, frequency, incontinence, hematuria, urinary retention, flank pain. MUSCULOSKELETAL: Denies weakness, joint pain, or bony pain SKIN: No rash, no erythema, no pruritus NEUROLOGIC: Denies weakness, dizziness, headache, numbness, change in speech, confusion PSYCHIATRIC: No concerning psychosocial issues. 12 point review of systems is negative except for those stated above and HPI PFSH Medical History Anxiety disorder (Acute) Morbid obesity with BMI of 45.0-49.9, adult (Acute) Small bowel obstruction due to adhesions (Acute) HTN (hypertension) (Chronic) Migraine (Chronic) Postoperative ileus (Resolved) Surgical History Status post exploratory laparotomy (Acute) Status post appendectomy (Resolved) Status post hysterectomy (Resolved) Family History Mother Hypertension Diabetes mellitus Father Cancer Social History household members: significant other, family and children Smoking Status: Former smoker Family History Mother Hypertension Diabetes mellitus Father Cancer Social History household members: significant other, family and children Smoking Status: Former smoker Exam Initial Vital Signs Initial Vital Signs: Vital Signs Temperature 98.8 F 09/06/18 13:25 Pulse Rate 98 H 09/06/18 13:25 Respiratory Rate 19 09/06/18 13:25 Blood Pressure 152/103 H 09/06/18 13:25 Pulse Oximetry 99 09/06/18 13:25 GENERAL: Patient appears in pain HEENT: Head atraumatic,EOMI, pupils reactive, CARDIOVASCULAR: Regular rate and rhythm without murmurs, rubs or gallops. RESPIRATORY: Breath sounds equal bilaterally, no wheezes rales or rhonchi. ABDOMEN: Soft, gastrotomy to noted diffusely tender noted significant distension EXTREMITIES: Normal range of motion, no clubbing or edema. Neurovascularly intact NEUROLOGICAL: Alert and oriented x4.Normal gait and speech. SKIN: Warm, dry, no laceration, no petechiae, no rashes or lesions. Course Orders Ordered: ED Orders 09/06/18 14:15 Complete Blood Count AUTO DIFF Stat Comprehensive Metabolic Panel Stat Lipase Stat 09/06/18 14:27 XR acute abdomen series Stat Sodium Chloride (Normal Saline 0.9%) 1,000 mls @ 1,000 mls/hr IV CONT MUKUL Last Infusion: 09/06/18 19:02 Dose: 0 mls/hr Admin: 09/06/18 15:26 Dose: 1,000 mls/hr Discontinued Medications Hydromorphone HCl (Dilaudid) 1 mg IV NOW ONE Stop: 09/06/18 14:23 Last Admin: 09/06/18 14:23 Dose: 1 mg Hydromorphone HCl (Dilaudid) 1 mg IV NOW ONE Stop: 09/06/18 16:45 Last Admin: 09/06/18 16:56 Dose: 1 mg Hydromorphone HCl (Dilaudid) 1 mg IV NOW ONE Stop: 09/06/18 19:22 Ondansetron HCl (Zofran) 4 mg IV NOW ONE Stop: 09/06/18 14:23 Last Admin: 09/06/18 14:23 Dose: 4 mg Consultations Consultation #1: Dr. Mccarty, surgery at the [facility] who has reviewed patient's case. She states that patient despite her recurrent small- bowel obstruction is not a surgical candidate still. In fact she is extremely high risk. Recommends conservative treatment with TPN and pain control if needed. Time: 16:57 Consultation #2: Dr. Chris has been made aware of patient in [facility] recommendations. He is in the ED to see and evaluate patient. This time recommends a Fleet's enema and draining the gastric tube to see if it helps. If does not help he will admit Time: 17:25 Vital Signs - 8 hr 09/06/18 13:25 09/06/18 16:40 09/06/18 18:21 Temperature 98.8 F Pulse Rate 98 H 90 78 Respiratory Rate 19 11 L 12 Blood Pressure 152/103 H Blood Pressure [Right Arm] 118/66 124/74 Pulse Oximetry 99 98 98 MDM - Abdominal Pain Lab Data Attestation: I reviewed the patient's lab results. Result diagrams: 09/06/18 14:15 09/06/18 14:15 Lab Results 09/06/18 09/06/18 Range/Units 14:15 14:15 WBC 7.9 (4.5-11.0) X10^3/uL RBC 4.68 (4.0-5.2) X10^6/uL Hgb 12.8 (12.0-16.0) g/dL Hct 38.5 (36-46) % MCV 82.2 (80-100) fL MCH 27.3 (26-34) PG MCHC 33.3 (30-36) % RDW 17.4 H (11.6-14.8) % Plt Count 308 (150-400) X10^3/uL Neut % (Auto) 81.4 H (50-75) % Lymph % (Auto) 13.4 L (25-40) % [place] % (Auto) 3.8 (3-14) % Eos % (Auto) 0.5 L (2-4) % Baso % (Auto) 0.9 (0-2) % Neut # (Auto) 6400 (8396-1984) /uL Lymph # (Auto) 1100 (1110-2038) /uL [place] # (Auto) 300 (0-900) /uL Eos # (Auto) 0 (0-450) /uL Baso # (Auto) 100 (0-100) /uL Sodium 137 (137-145) mmol/L Potassium 4.0 (3.4-5.1) mmol/L Chloride 104 (98-107) mmol/L Carbon Dioxide 24 (22-32) mmol/L BUN 23 H (7-17) mg/dL Creatinine 0.90 (0.52-1.04) mg/dL Estimated GFR > 60.0 (>60) mL/min BUN/Creatinine Ratio 25.6 H (6-22) Glucose 112 H (70-100) mg/dL Calcium 9.6 (8.4-10.2) mg/dL Total Bilirubin 0.2 (0.2-1.3) mg/dL AST 32 (14-36) IU/L ALT 32 (9-52) IU/L Alkaline Phosphatase 96 (38-126) U/L Total Protein 7.8 (6.3-8.2) g/dL Albumin 3.9 (3.5-5.0) g/dL Globulin 3.9 (1.7-4.1) g/dL Albumin/Globulin Ratio 1.0 (1.0-2.8) Lipase 175 (23-300) U/L Imaging Data Abdominal x-ray: Radiologist's impression: PROCEDURE: XR ACUTE ABDOMEN SERIES INDICATIONS: pain history of chronic small bowel obstructions. TECHNIQUE: One view chest and two views of the abdomen were acquired. COMPARISON: [facility], , XR ACUTE ABDOMEN SERIES, 08/15/2018, 18:37. FINDINGS: Surgical changes and devices: Possible gastrostomy tube is seen, suggest clinical correlation. Chest: Lungs are clear. Heart size is normal. No pleural effusions. No pneumoperitoneum. Abdomen: Multiple air fluid levels and mild to moderately air distended small bowel loops are again noted throughout abdomen consistent with distal small bowel obstruction. No gross peritoneal free air. No suspicious calcifications. Visualized solid organ contours appear normal. Bones: No suspicious bony lesions. IMPRESSION: Findings suggestive of distal small bowel structure and. No gross free air. Dictated by: Luciano Barahona M.D. on 09/06/2018 at 14:47 MDM Narrative Medical decision making narrative: The patient is overall feeling better wants to go home. She did not have much relief with Fleet enema or drainage of the tube. However she would like to go home she has TPN at home not a surgical candidate. Not clearly dehydrated. She has pain control at home as well. Discharge Plan Departure Patient Disposition: Home Clinical Impression: Small bowel obstruction Instructions: DI for Small Bowel Obstruction Activity Restrictions/Additional Instructions: *You have been diagnosed with small bowel obstruction *What to do: At this time no further intervention recommended her TPN. *Continue to take medications as directed Phenergan 25 mg every 6 hours if needed for nausea--> SENT TO [facility] *Follow up with your primary care provider in 2-3 days *Return to ER if you should have increasing abdominal pain and vomiting, fever or any new, worsening or concerning symptoms Prescriptions: New promethazine 25 mg tablet 25 mg PO Q6H PRN (Reason: nausea and vomiting) Qty: 10 RF: 0 No Action lorazepam 1 mg tablet 1 mg PO Q4HR PRN (Reason: Anxiety) Qty: 30 RF: 1 morphine 15 mg tablet 15 mg PO Q4-6H PRN (Reason: pain) Qty: 40 RF: 0 meclizine 25 mg tablet 25 mg PO TID PRN (Reason: Dizziness) RF: 0 acetaminophen 325 mg tablet 325 mg PO Q6HR PRN (Reason: As Needed For Fever/Mild Pain) RF: 0 diphenhydramine HCl [Allergy (diphenhydramine)] 25 mg Tablet 25 mg PO Q6HR PRN (Reason: Itching) Qty: 30 RF: 0 sennosides [Senokot] 8.6 mg tablet 8.6 mg PO BEDTIME Qty: 10 RF: 1 citalopram 20 mg Tablet 20 mg PO DAILY Qty: 30 RF: 1 pantoprazole 40 mg tablet,delayed release (DR/EC) 40 mg PO DAILY Qty: 30 RF: 1 ondansetron 4 mg Tablet,Disintegrating 4 mg Sublingual Q4HR PRN (Reason: Nausea) Qty: 30 RF: 0 lisinopril 10 mg tablet 10 mg PO BEDTIME RF: 0
[2018-09-06] MEDS: ONDANSETRON 4 MG/2 ML INJ IV (14:23)
[2018-09-06] MEDS: HYDROMORPHONE 1 MG INJ IV ×3 (14:23→19:25)
--- NOTE | 2018-09-06 14:27 | DI.RAD.S_ITS ---
PROCEDURE: XR ACUTE ABDOMEN SERIES INDICATIONS: pain history of chronic small bowel obstructions. TECHNIQUE: One view chest and two views of the abdomen were acquired. COMPARISON: [facility], CR, XR ACUTE ABDOMEN SERIES, 08/15/2018, 18:37. FINDINGS: Surgical changes and devices: Possible gastrostomy tube is seen, suggest clinical correlation. Chest: Lungs are clear. Heart size is normal. No pleural effusions. No pneumoperitoneum. Abdomen: Multiple air fluid levels and mild to moderately air distended small bowel loops are again noted throughout abdomen consistent with distal small bowel obstruction. No gross peritoneal free air. No suspicious calcifications. Visualized solid organ contours appear normal. Bones: No suspicious bony lesions. IMPRESSION: Findings suggestive of distal small bowel structure and. No gross free air. Dictated by: Luciano Barahona M.D. on 09/06/2018 at 14:47 Approved by: Luciano Barahona M.D. on 09/06/2018 at 14:48
[2018-09-06 15:25] LABS: Add Manual Diff / Slide Review NO; Basophils Absolute Auto 100 /uL (0-100); Basophils Percent Auto 0.9 % (0-2); Eosinophils Absolute Auto 0 /uL (0-450); Eosinophils Percent Auto 0.5 % (2-4); Hematocrit 38.5 % (36-46); Hemoglobin 12.8 g/dL (12.0-16.0); Lymphocytes Absolute Auto 1100 /uL (1100-4500); Lymphocytes Percent Auto 13.4 % (25-40); Mean Corpuscular HGB Conc 33.3 % (30-36); Mean Corpuscular Hemoglobin 27.3 PG (26-34); Mean Corpuscular Volume 82.2 fL (80-100); Monocytes Absolute Auto 300 /uL (0-900); Monocytes Percent Auto 3.8 % (3-14); Neutrophils Absolute Auto 6400 /uL (1500-7000); Neutrophils Percent Auto 81.4 % (50-75); Platelet Count 308 X10^3/uL (150-400); Red Blood Cell Count 4.68 X10^6/uL (4.0-5.2); Red Cell Distribution Width 17.4 % (11.6-14.8); White Blood Cell Count 7.9 X10^3/uL (4.5-11.0)
[2018-09-06] MEDS: SODIUM CHLORIDE 0.9% 1,000 ML 1000 ML IV (15:26)
[2018-09-06 15:34] LABS: Alanine Aminotransferase 32 IU/L (9-52); Albumin 3.9 g/dL (3.5-5.0); Alkaline Phosphatase 96 U/L (38-126); Aspartate Aminotransferase 32 IU/L (14-36); BUN Creatinine Ratio 25.6 (6-22); Bilirubin Total 0.2 mg/dL (0.2-1.3); Blood Urea Nitrogen 23 mg/dL (7-17); Calcium 9.6 mg/dL (8.4-10.2); Carbon Dioxide 24 mmol/L (22-32); Chloride 104 mmol/L (98-107); Estimated Glomerular Filt Rate > 60.0 mL/min (>60); Globulin 3.9 g/dL (1.7-4.1); Glucose 112 mg/dL (70-100); HEMOLYSIS < 15 (0-50); Lipase 175 U/L (23-300); Sodium 137 mmol/L (137-145); Total Protein 7.8 g/dL (6.3-8.2)
[2018-09-06 16:40] VITALS: BP 118/66; PULSE 90; RESP 11; O2SAT 98
[2018-09-06 18:21] VITALS: BP 124/74; PULSE 78; RESP 12; O2SAT 98
--- NOTE | 2018-09-06 19:18 | PC.NURSE ---
irrigated pt g-tube per dr goins, with 100ml water, rec'd 100ml water. hooked up wallis catheter tubing for drainage collection per dr goins. performed mineral oil enema per dr goins with no results.
--- NOTE | 2018-09-06 19:21 | PC.NURSE ---
pt has pic line to rt upper arm, draws blood well, flushed with 10ml saline.
[2018-09-06] MEDS: FLEETS ENEMA 1 EACH PR (19:28)
[2018-09-06 19:32] VITALS: BP 114/58; PULSE 87; RESP 14; O2SAT 99
== END 2018-09-06 19:33 | disposition home or self-care (01) ==
PROVIDERS: Emergency Provider Emergency Medicine
DX: K56.609 Unspecified intestinal obstruction, unspecified as to partial versus complete obstruction (principal); R11.2 Nausea with vomiting, unspecified
CPT/HCPCS: 74022; 80053; 83690; 85025; 96361; 96374; 96375; 96376; 99283; 99284; J1170; J2405

== ENCOUNTER 2018-09-07 09:02 | Emergency (ER) | payer OTHER, MEDICAID, SELFPAY ==
[2018-08-15 22:02] VITALS: BMI 38.2
--- NOTE | 2018-09-07 09:16 | ED.ABDPAIN ---
HPI - Abdominal Pain General Chief Complaint: Abdominal Pain Stated Complaint: throwing up,abdominal cramps Time Seen by Provider: 09/07/18 09:14 Source: patient, RN notes reviewed and old records reviewed Mode of arrival: ambulatory Limitations: no limitations History of Present Illness HPI narrative: 53-year-old female comes to the emergency department with complaint of abdominal pain and vomiting. patient has a known chronic bowel obstruction. She has a G-tube which there was concern that it was blocked up yesterday after starting to eat solid foods which she states that there is an approved list and she had started. She was here at the ER, evaluated and seen by surgery. They contacted [facility] and were told that she has a nonsurgical candidate. That she can be admitted here if needed. Patient had TPN at home and preferred to return home rather than stay. She states that her pain was improved overnight but began to increase this morning and she began vomiting this morning. She states no vomiting overnight. She denies any fevers, no chest pain or shortness of breath. Pain is in her typical location. She states she typically has about 400 cc out overnight she had several 100 out last night. She has started making some stool. Related Data Home Medications Medication Instructions Recorded Confirmed lisinopril 10 mg PO BEDTIME 08/15/18 09/06/18 acetaminophen 325 mg PO Q6HR PRN 09/06/18 09/06/18 meclizine 25 mg PO TID PRN 09/06/18 09/06/18 Previous Rx's Medication Instructions Recorded citalopram 20 mg PO DAILY #30 tab 08/10/18 diphenhydramine HCl [Allergy 25 mg PO Q6HR PRN #30 tab 08/10/18 (diphenhydramine)] ondansetron 4 mg SUBLINGUAL Q4HR PRN #30 tab 08/10/18 pantoprazole 40 mg PO DAILY #30 tab 08/10/18 sennosides [Senokot] 8.6 mg PO BEDTIME #10 tab 08/10/18 morphine 15 mg immediate release 15 mg PO Q4-6H PRN #40 tab 08/23/18 tablet lorazepam 1 mg tablet 1 mg PO Q4HR PRN #30 tab 09/03/18 promethazine 25 mg PO Q6H PRN #10 tab 09/06/18 metoclopramide HCl [Reglan] 10 mg PO Q6H #20 tab 09/07/18 Allergies Allergy/AdvReac Type Severity Reaction Status Date / Time Penicillins Allergy Intermediate Hives Verified 09/07/18 10:09 ranitidine [From Zantac] Allergy Intermediate Hives Verified 09/07/18 10:09 Review of Systems Review of Systems ROS Unobtainable: All systems reviewed & are unremarkable except as noted in HPI and below Constitutional Denies chills, Denies fever(s), Denies lethargy and Denies weakness Cardiovascular Denies chest pain, Denies syncope, Denies edema, Denies dyspnea and Denies dyspnea on exertion Respiratory Denies chest congestion, Denies cough, Denies excessive phlegm production, Denies dyspnea, Denies dyspnea on exertion, Denies stridor and Denies wheezing Gastrointestinal Gastrointestinal: Reports abdominal pain, Denies melena, Denies hematochezia, Reports change in bowel habits, Reports nausea and Reports vomiting Genitourinary Denies hematuria, Denies urinary frequency, Denies dysuria, Denies flank pain, Denies urinary incontinence and Denies urinary urgency Neurologic Denies syncope and Denies weakness Allergic/Immunologic Denies wheezing PFSH Medical History Anxiety disorder (Acute) Morbid obesity with BMI of 45.0-49.9, adult (Acute) Small bowel obstruction due to adhesions (Acute) HTN (hypertension) (Chronic) Migraine (Chronic) Postoperative ileus (Resolved) Surgical History Status post exploratory laparotomy (Acute) Status post appendectomy (Resolved) Status post hysterectomy (Resolved) Family History Mother Hypertension Diabetes mellitus Father Cancer Social History household members: significant other, family and children Smoking Status: Former smoker Family History Mother Hypertension Diabetes mellitus Father Cancer Social History household members: significant other, family and children Smoking Status: Former smoker Exam Narrative Exam Narrative: GENERAL: Alert and oriented x three, obese female in moderate distress. HEENT: Head normocephalic, atraumatic, EOMI, pupils reactive, face symmetric, moist mucous membranes NECK: Supple, full range of motion CARDIOVASCULAR: Regular rate and rhythm without murmurs, rubs or gallops. RESPIRATORY: Breath sounds equal bilaterally, no wheezes rales or rhonchi. ABDOMEN: Soft, Generalized tenderness. gastrotomy noted. no significant distention. No mass. : No CVA tenderness EXTREMITIES: Normal range of motion, no clubbing or edema. Neurovascularly intact. the patient has PICC line in her right upper extremity which appears clean dry and intact with no redness or signs of infection. NEUROLOGICAL: Cranial nerves II through XII grossly intact. Moving all extremities SKIN: Warm, dry, no petechiae, no rashes or lesions. Initial Vital Signs Initial Vital Signs: Vital Signs Temperature 98.7 F 09/07/18 09:19 Pulse Rate 100 H 09/07/18 09:19 Respiratory Rate 24 09/07/18 09:19 Blood Pressure 161/131 H 09/07/18 09:19 Pulse Oximetry 99 09/07/18 09:19 Course Orders Ordered: Discontinued Medications Hydromorphone HCl (Dilaudid) 1 mg IV NOW ONE Stop: 09/07/18 09:20 Last Admin: 09/07/18 09:35 Dose: 1 mg Hydromorphone HCl (Dilaudid) 1 mg IV NOW ONE Stop: 09/07/18 10:56 Last Admin: 09/07/18 11:05 Dose: 1 mg Sodium Chloride (Normal Saline 0.9%) 1,000 mls @ 150 mls/hr IV CONT MUKUL Last Infusion: 09/07/18 12:35 Dose: 0 mls/hr Admin: 09/07/18 09:39 Dose: 150 mls/hr Ondansetron HCl (Zofran) 4 mg IV NOW ONE Stop: 09/07/18 09:20 Last Admin: 09/07/18 09:35 Dose: 4 mg Vital Signs - 8 hr 09/07/18 11:18 09/07/18 12:05 09/07/18 12:38 Temperature 97.4 F L Pulse Rate 91 H 91 H 88 Respiratory Rate 17 14 18 Blood Pressure 120/64 Blood Pressure [Left Wrist] 149/85 H 126/75 Pulse Oximetry 98 98 98 MDM - Abdominal Pain Lab Data Attestation: I reviewed the patient's lab results. Result diagrams: 09/07/18 09:30 09/07/18 09:30 Lab Results 09/07/18 09/07/18 Range/Units 09:30 09:30 WBC 11.4 H (4.5-11.0) X10^3/uL RBC 4.55 (4.0-5.2) X10^6/uL Hgb 12.3 (12.0-16.0) g/dL Hct 37.4 (36-46) % MCV 82.1 (80-100) fL MCH 27.1 (26-34) PG MCHC 33.0 (30-36) % RDW 18.4 H (11.6-14.8) % Plt Count 291 (150-400) X10^3/uL Neut % (Auto) 77.9 H (50-75) % Lymph % (Auto) 15.6 L (25-40) % [place] % (Auto) 5.3 (3-14) % Eos % (Auto) 0.4 L (2-4) % Baso % (Auto) 0.8 (0-2) % Neut # (Auto) 8900 H (4825-2023) /uL Lymph # (Auto) 1800 (1752-9293) /uL [place] # (Auto) 600 (0-900) /uL Eos # (Auto) 0 (0-450) /uL Baso # (Auto) 100 (0-100) /uL Sodium 138 (137-145) mmol/L Potassium 4.0 (3.4-5.1) mmol/L Chloride 103 (98-107) mmol/L Carbon Dioxide 23 (22-32) mmol/L BUN 31 H (7-17) mg/dL Creatinine 0.80 (0.52-1.04) mg/dL Estimated GFR > 60.0 (>60) mL/min BUN/Creatinine Ratio 38.8 H (6-22) Glucose 153 H (70-100) mg/dL Calcium 9.6 (8.4-10.2) mg/dL Total Bilirubin 0.3 (0.2-1.3) mg/dL AST 26 (14-36) IU/L ALT 24 (9-52) IU/L Alkaline Phosphatase 96 (38-126) U/L Total Protein 7.8 (6.3-8.2) g/dL Albumin 3.9 (3.5-5.0) g/dL Globulin 3.9 (1.7-4.1) g/dL Albumin/Globulin Ratio 1.0 (1.0-2.8) Lipase 203 (23-300) U/L Point of care testing: Urine Dip Bedside Urine Glucose Negative Bedside Urine Bilirubin + 1 Bedside Urine Ketone - Negative Urine Specific [place] 1.030 Bedside Urine Occult Blood - Negative Bedside Urine pH 5.5 Bedside Urine Protein +/- 15 Bedside Urine Urobilinogen - Negative Bedside Urine Nitrite - Negative Bedside Urine Leukocytes - Negative Esterase Imaging Data Abdominal x-ray: My impression: [address] [address] XRay Report Signed Patient: Carol Reyes LMR#: [id number] : 1965Acct:[id number] Age/Sex: 53 / FDate of Service: 09/07/18 Loc: ED Accession Number: [id number] Procedure: XR abdomen min 2V Ordering Provider: Veronique Puente D.O. PROCEDURE: XR ABDOMEN MIN 2V INDICATIONS: abdominal pain, history of bowel obstructions and clogged gtube TECHNIQUE: 2 views of the abdomen were acquired. COMPARISON: [facility], CR, XR ACUTE ABDOMEN SERIES, 09/06/2018, 14:32. [facility], CR, XR ABDOMEN 3V, 08/17/2018, 5:44. FINDINGS: Surgical changes and devices: Possible gastrostomy tube in left upper quadrant abdomen is again seen. Bowel: Air distended small bowel loops are again noted throughout abdomen with multiple air fluid level is. Findings not significantly changed from previous day and is suggestive of persistent distal small bowel structures.. Soft tissues: No masses; visualized solid organ contours appear normal in size. No suspicious abdominal calcifications. Bones: No suspicious bony abnormalities. IMPRESSION: Findings consistent with distal small bowel obstruction not significantly changed from previous day. No gross free air. Dictated by: Luciano Barahona M.D. on 09/07/2018 at 10:16 Approved by: Luciano Barahona M.D. on 09/07/2018 at 10:17 MDM Narrative Medical decision making narrative: Patient's x-ray does not show any new changes. Lab work shows slight elevation of white count 11.4. Patient's G-tube flushes but does not drain. Patient's vomiting has stopped after doses Zofran. She has had 2 doses of Dilaudid she is feeling more comfortable. Spoke with General surgery, Dr. Cantu. Patient has been having some drainage although decreased. After Zofran and Dilaudid in the department she is no longer vomiting and is feeling comfortable. Patient ordered prefer to return home and plan to DC home. Dr. Cantu recommended trying Reglan regularly to see if this would help with emptying and she starting to have bowel movements. Discussed with patient and she is willing to try. She states she has had before in the hospital but does not normally take it. Discharge Plan Departure Patient Disposition: Home Clinical Impression: SBO (small bowel obstruction) Discharge Date/Time: 09/07/18 12:38 Interventions: ED Discharge Assessment Last Done: 09/07/18 12:38 Instructions: DI for Small Bowel Obstruction Activity Restrictions/Additional Instructions: Follow up with your physician at your scheduled appointment. Continue home medications as prescribed. Your prescription was sent to [facility] in [place]. You may try Reglan every 6 hours to see if this will help with emptying. It is also an antinausea medication. Return to the emergency department for fevers, persistent vomiting black or bloody vomit or stools rapidly worsening pain, passing new shortness of breath or chest pain or other new or concerning symptoms. Prescriptions: New metoclopramide HCl [Reglan] 10 mg tablet 10 mg PO Q6H Qty: 20 RF: 0 No Action lorazepam 1 mg tablet 1 mg PO Q4HR PRN (Reason: Anxiety) Qty: 30 RF: 1 morphine 15 mg tablet 15 mg PO Q4-6H PRN (Reason: pain) Qty: 40 RF: 0 meclizine 25 mg tablet 25 mg PO TID PRN (Reason: Dizziness) RF: 0 acetaminophen 325 mg tablet 325 mg PO Q6HR PRN (Reason: As Needed For Fever/Mild Pain) RF: 0 promethazine 25 mg tablet 25 mg PO Q6H PRN (Reason: nausea and vomiting) Qty: 10 RF: 0 diphenhydramine HCl [Allergy (diphenhydramine)] 25 mg Tablet 25 mg PO Q6HR PRN (Reason: Itching) Qty: 30 RF: 0 sennosides [Senokot] 8.6 mg tablet 8.6 mg PO BEDTIME Qty: 10 RF: 1 citalopram 20 mg Tablet 20 mg PO DAILY Qty: 30 RF: 1 pantoprazole 40 mg tablet,delayed release (DR/EC) 40 mg PO DAILY Qty: 30 RF: 1 ondansetron 4 mg Tablet,Disintegrating 4 mg Sublingual Q4HR PRN (Reason: Nausea) Qty: 30 RF: 0 lisinopril 10 mg tablet 10 mg PO BEDTIME RF: 0
[2018-09-07 09:19] VITALS: BP 161/131; PULSE 100; RESP 24; TEMP 37.1; O2SAT 99
[2018-09-07] MEDS: HYDROMORPHONE 1 MG INJ IV ×2 (09:35→11:05)
[2018-09-07] MEDS: ONDANSETRON 4 MG/2 ML INJ IV (09:35)
[2018-09-07] MEDS: SODIUM CHLORIDE 0.9% 1,000 ML 150 ML IV (09:39)
--- NOTE | 2018-09-07 09:42 | ED_ITS ---
HPI - Abdominal Pain General Chief Complaint: Abdominal Pain Stated Complaint: throwing up,abdominal cramps Time Seen by Provider: 09/07/18 09:14 Source: patient, RN notes reviewed and old records reviewed Mode of arrival: ambulatory Limitations: no limitations History of Present Illness HPI narrative: 53-year-old female comes to the emergency department with complaint of abdominal pain and vomiting. patient has a known chronic bowel obstruction. She has a G-tube which there was concern that it was blocked up yesterday after starting to eat solid foods which she states that there is an approved list and she had started. She was here at the ER, evaluated and seen by surgery. They contacted [facility] and were told that she has a nonsurgical candidate. That she can be admitted here if needed. Patient had TPN at home and preferred to return home rather than stay. She states that her pain was improved overnight but began to increase this morning and she began vomiting this morning. She states no vomiting overnight. She denies any fevers, no chest pain or shortness of breath. Pain is in her typical location. She states she typically has about 400 cc out overnight she had several 100 out last night. She has started making some stool. Related Data Home Medications Medication Instructions Recorded Confirmed lisinopril 10 mg PO BEDTIME 08/15/18 09/06/18 acetaminophen 325 mg PO Q6HR PRN 09/06/18 09/06/18 meclizine 25 mg PO TID PRN 09/06/18 09/06/18 Previous Rx's Medication Instructions Recorded citalopram 20 mg PO DAILY #30 tab 08/10/18 diphenhydramine HCl [Allergy 25 mg PO Q6HR PRN #30 tab 08/10/18 (diphenhydramine)] ondansetron 4 mg SUBLINGUAL Q4HR PRN #30 tab 08/10/18 pantoprazole 40 mg PO DAILY #30 tab 08/10/18 sennosides [Senokot] 8.6 mg PO BEDTIME #10 tab 08/10/18 morphine 15 mg immediate release 15 mg PO Q4-6H PRN #40 tab 08/23/18 tablet lorazepam 1 mg tablet 1 mg PO Q4HR PRN #30 tab 09/03/18 promethazine 25 mg PO Q6H PRN #10 tab 09/06/18 metoclopramide HCl [Reglan] 10 mg PO Q6H #20 tab 09/07/18 Allergies Allergy/AdvReac Type Severity Reaction Status Date / Time Penicillins Allergy Intermediate Hives Verified 09/07/18 10:09 ranitidine [From Zantac] Allergy Intermediate Hives Verified 09/07/18 10:09 Review of Systems Review of Systems ROS Unobtainable: All systems reviewed & are unremarkable except as noted in HPI and below Constitutional Denies chills, Denies fever(s), Denies lethargy and Denies weakness Cardiovascular Denies chest pain, Denies syncope, Denies edema, Denies dyspnea and Denies dyspnea on exertion Respiratory Denies chest congestion, Denies cough, Denies excessive phlegm production, Denies dyspnea, Denies dyspnea on exertion, Denies stridor and Denies wheezing Gastrointestinal Gastrointestinal: Reports abdominal pain, Denies melena, Denies hematochezia, Reports change in bowel habits, Reports nausea and Reports vomiting Genitourinary Denies hematuria, Denies urinary frequency, Denies dysuria, Denies flank pain, Denies urinary incontinence and Denies urinary urgency Neurologic Denies syncope and Denies weakness Allergic/Immunologic Denies wheezing PFSH Medical History Anxiety disorder (Acute) Morbid obesity with BMI of 45.0-49.9, adult (Acute) Small bowel obstruction due to adhesions (Acute) HTN (hypertension) (Chronic) Migraine (Chronic) Postoperative ileus (Resolved) Surgical History Status post exploratory laparotomy (Acute) Status post appendectomy (Resolved) Status post hysterectomy (Resolved) Family History Mother Hypertension Diabetes mellitus Father Cancer Social History household members: significant other, family and children Smoking Status: Former smoker Family History Mother Hypertension Diabetes mellitus Father Cancer Social History household members: significant other, family and children Smoking Status: Former smoker Exam Narrative Exam Narrative: GENERAL: Alert and oriented x three, obese female in moderate distress. HEENT: Head normocephalic, atraumatic, EOMI, pupils reactive, face symmetric, moist mucous membranes NECK: Supple, full range of motion CARDIOVASCULAR: Regular rate and rhythm without murmurs, rubs or gallops. RESPIRATORY: Breath sounds equal bilaterally, no wheezes rales or rhonchi. ABDOMEN: Soft, Generalized tenderness. gastrotomy noted. no significant distention. No mass. : No CVA tenderness EXTREMITIES: Normal range of motion, no clubbing or edema. Neurovascularly intact. the patient has PICC line in her right upper extremity which appears clean dry and intact with no redness or signs of infection. NEUROLOGICAL: Cranial nerves II through XII grossly intact. Moving all extremities SKIN: Warm, dry, no petechiae, no rashes or lesions. Initial Vital Signs Initial Vital Signs: Vital Signs Temperature 98.7 F 09/07/18 09:19 Pulse Rate 100 H 09/07/18 09:19 Respiratory Rate 24 09/07/18 09:19 Blood Pressure 161/131 H 09/07/18 09:19 Pulse Oximetry 99 09/07/18 09:19 Course Orders Ordered: Discontinued Medications Hydromorphone HCl (Dilaudid) 1 mg IV NOW ONE Stop: 09/07/18 09:20 Last Admin: 09/07/18 09:35 Dose: 1 mg Hydromorphone HCl (Dilaudid) 1 mg IV NOW ONE Stop: 09/07/18 10:56 Last Admin: 09/07/18 11:05 Dose: 1 mg Sodium Chloride (Normal Saline 0.9%) 1,000 mls @ 150 mls/hr IV CONT MUKUL Last Infusion: 09/07/18 12:35 Dose: 0 mls/hr Admin: 09/07/18 09:39 Dose: 150 mls/hr Ondansetron HCl (Zofran) 4 mg IV NOW ONE Stop: 09/07/18 09:20 Last Admin: 09/07/18 09:35 Dose: 4 mg Vital Signs - 8 hr 09/07/18 11:18 09/07/18 12:05 09/07/18 12:38 Temperature 97.4 F L Pulse Rate 91 H 91 H 88 Respiratory Rate 17 14 18 Blood Pressure 120/64 Blood Pressure [Left Wrist] 149/85 H 126/75 Pulse Oximetry 98 98 98 MDM - Abdominal Pain Lab Data Attestation: I reviewed the patient's lab results. Result diagrams: 09/07/18 09:30 09/07/18 09:30 Lab Results 09/07/18 09/07/18 Range/Units 09:30 09:30 WBC 11.4 H (4.5-11.0) X10^3/uL RBC 4.55 (4.0-5.2) X10^6/uL Hgb 12.3 (12.0-16.0) g/dL Hct 37.4 (36-46) % MCV 82.1 (80-100) fL MCH 27.1 (26-34) PG MCHC 33.0 (30-36) % RDW 18.4 H (11.6-14.8) % Plt Count 291 (150-400) X10^3/uL Neut % (Auto) 77.9 H (50-75) % Lymph % (Auto) 15.6 L (25-40) % [place] % (Auto) 5.3 (3-14) % Eos % (Auto) 0.4 L (2-4) % Baso % (Auto) 0.8 (0-2) % Neut # (Auto) 8900 H (4746-9616) /uL Lymph # (Auto) 1800 (1373-4983) /uL [place] # (Auto) 600 (0-900) /uL Eos # (Auto) 0 (0-450) /uL Baso # (Auto) 100 (0-100) /uL Sodium 138 (137-145) mmol/L Potassium 4.0 (3.4-5.1) mmol/L Chloride 103 (98-107) mmol/L Carbon Dioxide 23 (22-32) mmol/L BUN 31 H (7-17) mg/dL Creatinine 0.80 (0.52-1.04) mg/dL Estimated GFR > 60.0 (>60) mL/min BUN/Creatinine Ratio 38.8 H (6-22) Glucose 153 H (70-100) mg/dL Calcium 9.6 (8.4-10.2) mg/dL Total Bilirubin 0.3 (0.2-1.3) mg/dL AST 26 (14-36) IU/L ALT 24 (9-52) IU/L Alkaline Phosphatase 96 (38-126) U/L Total Protein 7.8 (6.3-8.2) g/dL Albumin 3.9 (3.5-5.0) g/dL Globulin 3.9 (1.7-4.1) g/dL Albumin/Globulin Ratio 1.0 (1.0-2.8) Lipase 203 (23-300) U/L Point of care testing: Urine Dip Bedside Urine Glucose Negative Bedside Urine Bilirubin + 1 Bedside Urine Ketone - Negative Urine Specific [place] 1.030 Bedside Urine Occult Blood - Negative Bedside Urine pH 5.5 Bedside Urine Protein +/- 15 Bedside Urine Urobilinogen - Negative Bedside Urine Nitrite - Negative Bedside Urine Leukocytes - Negative Esterase Imaging Data Abdominal x-ray: My impression: [address] [address] XRay Report Signed Patient: Carol Reyes LMR#: [id number] : 1965Acct:[id number] Age/Sex: 53 / FDate of Service: 09/07/18 Loc: ED Accession Number: [id number] Procedure: XR abdomen min 2V Ordering Provider: Veronique Puente D.O. PROCEDURE: XR ABDOMEN MIN 2V INDICATIONS: abdominal pain, history of bowel obstructions and clogged gtube TECHNIQUE: 2 views of the abdomen were acquired. COMPARISON: [facility], CR, XR ACUTE ABDOMEN SERIES, 09/06/2018, 14:32. [facility], CR, XR ABDOMEN 3V, 08/17/2018, 5:44. FINDINGS: Surgical changes and devices: Possible gastrostomy tube in left upper quadrant abdomen is again seen. Bowel: Air distended small bowel loops are again noted throughout abdomen with multiple air fluid level is. Findings not significantly changed from previous day and is suggestive of persistent distal small bowel structures.. Soft tissues: No masses; visualized solid organ contours appear normal in size. No suspicious abdominal calcifications. Bones: No suspicious bony abnormalities. IMPRESSION: Findings consistent with distal small bowel obstruction not significantly changed from previous day. No gross free air. Dictated by: Luciano Barahona M.D. on 09/07/2018 at 10:16 Approved by: Luciano Barahona M.D. on 09/07/2018 at 10:17 MDM Narrative Medical decision making narrative: Patient's x-ray does not show any new changes. Lab work shows slight elevation of white count 11.4. Patient's G-tube flushes but does not drain. Patient's vomiting has stopped after doses Zofran. She has had 2 doses of Dilaudid she is feeling more comfortable. Spoke with General surgery, Dr. Cantu. Patient has been having some drainage although decreased. After Zofran and Dilaudid in the department she is no longer vomiting and is feeling comfortable. Patient ordered prefer to return home and plan to DC home. Dr. Cantu recommended trying Reglan regularly to see if this would help with emptying and she starting to have bowel movements. Discussed with patient and she is willing to try. She states she has had before in the hospital but does not normally take it. Discharge Plan Departure Patient Disposition: Home Clinical Impression: SBO (small bowel obstruction) Discharge Date/Time: 09/07/18 12:38 Interventions: ED Discharge Assessment Last Done: 09/07/18 12:38 Instructions: DI for Small Bowel Obstruction Activity Restrictions/Additional Instructions: Follow up with your physician at your scheduled appointment. Continue home medications as prescribed. Your prescription was [facility] to [facility] in [place]. You may try Reglan every 6 hours to see if this will help with emptying. It is also an antinausea medication. Return to the emergency department for fevers, persistent vomiting black or bloody vomit or stools rapidly worsening pain, passing new shortness of breath or chest pain or other new or concerning symptoms. Prescriptions: New metoclopramide HCl [Reglan] 10 mg tablet 10 mg PO Q6H Qty: 20 RF: 0 No Action lorazepam 1 mg tablet 1 mg PO Q4HR PRN (Reason: Anxiety) Qty: 30 RF: 1 morphine 15 mg tablet 15 mg PO Q4-6H PRN (Reason: pain) Qty: 40 RF: 0 meclizine 25 mg tablet 25 mg PO TID PRN (Reason: Dizziness) RF: 0 acetaminophen 325 mg tablet 325 mg PO Q6HR PRN (Reason: As Needed For Fever/Mild Pain) RF: 0 promethazine 25 mg tablet 25 mg PO Q6H PRN (Reason: nausea and vomiting) Qty: 10 RF: 0 diphenhydramine HCl [Allergy (diphenhydramine)] 25 mg Tablet 25 mg PO Q6HR PRN (Reason: Itching) Qty: 30 RF: 0 sennosides [Senokot] 8.6 mg tablet 8.6 mg PO BEDTIME Qty: 10 RF: 1 citalopram 20 mg Tablet 20 mg PO DAILY Qty: 30 RF: 1 pantoprazole 40 mg tablet,delayed release (DR/EC) 40 mg PO DAILY Qty: 30 RF: 1 ondansetron 4 mg Tablet,Disintegrating 4 mg Sublingual Q4HR PRN (Reason: Nausea) Qty: 30 RF: 0 lisinopril 10 mg tablet 10 mg PO BEDTIME RF: 0
[2018-09-07 09:53] LABS: Add Manual Diff / Slide Review NO; Basophils Absolute Auto 100 /uL (0-100); Basophils Percent Auto 0.8 % (0-2); Eosinophils Absolute Auto 0 /uL (0-450); Eosinophils Percent Auto 0.4 % (2-4); Hematocrit 37.4 % (36-46); Hemoglobin 12.3 g/dL (12.0-16.0); Lymphocytes Absolute Auto 1800 /uL (1100-4500); Lymphocytes Percent Auto 15.6 % (25-40); Mean Corpuscular Hemoglobin 27.1 PG (26-34); Mean Corpuscular Volume 82.1 fL (80-100); Monocytes Absolute Auto 600 /uL (0-900); Monocytes Percent Auto 5.3 % (3-14); Neutrophils Absolute Auto 8900 /uL (1500-7000); Neutrophils Percent Auto 77.9 % (50-75); Platelet Count 291 X10^3/uL (150-400); Red Blood Cell Count 4.55 X10^6/uL (4.0-5.2); Red Cell Distribution Width 18.4 % (11.6-14.8); White Blood Cell Count 11.4 X10^3/uL (4.5-11.0)
[2018-09-07 10:00] LABS: Alanine Aminotransferase 24 IU/L (9-52); Albumin 3.9 g/dL (3.5-5.0); Alkaline Phosphatase 96 U/L (38-126); Aspartate Aminotransferase 26 IU/L (14-36); BUN Creatinine Ratio 38.8 (6-22); Bilirubin Total 0.3 mg/dL (0.2-1.3); Blood Urea Nitrogen 31 mg/dL (7-17); Calcium 9.6 mg/dL (8.4-10.2); Carbon Dioxide 23 mmol/L (22-32); Chloride 103 mmol/L (98-107); Estimated Glomerular Filt Rate > 60.0 mL/min (>60); Globulin 3.9 g/dL (1.7-4.1); Glucose 153 mg/dL (70-100); HEMOLYSIS < 15 (0-50); Lipase 203 U/L (23-300); Sodium 138 mmol/L (137-145); Total Protein 7.8 g/dL (6.3-8.2)
[2018-09-07 10:07] VITALS: BP 157/97; PULSE 91; RESP 16; O2SAT 98
[2018-09-07 11:18] VITALS: BP 149/85; PULSE 91; RESP 17; O2SAT 98
--- NOTE | 2018-09-07 11:18 | PC.NURSE ---
Flushed GT with 60 cc Saline, flushes easily, unable to get any of the return back in the syringe. tube collapses on itself. pt reports that is the trouble she has been having, Dr. Puente aware.
[2018-09-07 12:05] VITALS: BP 126/75; PULSE 91; RESP 14; O2SAT 98
[2018-09-07 12:38] VITALS: BP 120/64; PULSE 88; RESP 18; TEMP 36.3; O2SAT 98
== END 2018-09-07 12:38 | disposition home or self-care (01) ==
PROVIDERS: Emergency Provider Emergency Medicine
CPT/HCPCS: 36591; 74019; 80053; 81003; 83690; 85025; 99283; J1170; J2405

== ENCOUNTER 2018-09-08 00:03 | Inpatient (IN) | payer OTHER, MEDICAID, SELFPAY ==
[2018-08-15 22:02] VITALS: BMI 38.2
[2018-09-08] VITALS (8 sets, daily range): BP systolic 98–166; BP diastolic 44–93; PULSE 67–105; RESP 12–22; TEMP 36.2–36.9; O2SAT 94–98; BMI 36.9
--- NOTE | 2018-09-08 00:26 | ED.ABDPAIN ---
HPI - Abdominal Pain General Chief Complaint: Abdominal Pain Stated Complaint: abdominal cramps, vomiting for 24 hours Time Seen by Provider: 09/08/18 00:22 Source: patient and family Mode of arrival: ambulatory Limitations: no limitations History of Present Illness HPI narrative: 53-year-old female, former smoker presents with family in the chief complaint of ongoing abdominal pain, nausea and vomiting. She has had trouble with chronic small bowel obstruction since April and has a G tube. She was seen earlier today and had a consult with General surgery. She most recently had a surgery in June for the same and is a nonsurgical candidate until December. She is being followed by the [facility]. She has severe abdominal pain, worse with motion, improved with rest. MD complaint: abdominal pain Onset (ago): day(s) Pain Consistency: constant Location: diffuse Severity: severe Quality: cramping and stabbing Radiation: none Migration to: no migration Relieving factors: nothing Exacerbating factors: movement Associated symptoms: nausea and vomiting Related Data Home Medications Medication Instructions Recorded Confirmed lisinopril 10 mg PO BEDTIME 08/15/18 09/06/18 acetaminophen 325 mg PO Q6HR PRN 09/06/18 09/06/18 meclizine 25 mg PO TID PRN 09/06/18 09/06/18 Previous Rx's Medication Instructions Recorded citalopram 20 mg PO DAILY #30 tab 08/10/18 diphenhydramine HCl [Allergy 25 mg PO Q6HR PRN #30 tab 08/10/18 (diphenhydramine)] ondansetron 4 mg SUBLINGUAL Q4HR PRN #30 tab 08/10/18 pantoprazole 40 mg PO DAILY #30 tab 08/10/18 sennosides [Senokot] 8.6 mg PO BEDTIME #10 tab 08/10/18 morphine 15 mg immediate release 15 mg PO Q4-6H PRN #40 tab 08/23/18 tablet lorazepam 1 mg tablet 1 mg PO Q4HR PRN #30 tab 09/03/18 promethazine 25 mg PO Q6H PRN #10 tab 09/06/18 metoclopramide HCl [Reglan] 10 mg PO Q6H #20 tab 09/07/18 Allergies Allergy/AdvReac Type Severity Reaction Status Date / Time Penicillins Allergy Intermediate Hives Verified 09/08/18 00:12 ranitidine [From Zantac] Allergy Intermediate Hives Verified 09/08/18 00:12 Review of Systems Constitutional Denies chills, Denies fever(s), Denies lethargy and Denies weakness Eyes Denies change in vision, Denies eye discharge, Denies irritation and Denies loss of vision ENT Ears, Nose, Mouth, and Throat: Denies change in voice, Denies neck pain and Denies sore throat Cardiovascular Denies chest pain, Denies irregular heart rhythm, Denies lightheadedness, Denies palpitations, Denies dyspnea, Denies dyspnea on exertion and Denies orthopnea Respiratory Denies cough, Denies dyspnea, Denies dyspnea on exertion and Denies wheezing Gastrointestinal Gastrointestinal: Reports abdominal pain, Denies change in bowel habits, Denies diarrhea, Reports nausea and Reports vomiting Genitourinary Denies hematuria, Denies flank pain, Denies urinary incontinence and Denies urinary urgency Musculoskeletal Denies neck pain Integumentary/Breasts Denies pruritus, Denies erythema, Denies rash and Denies wounds Neurologic Denies confusion, Denies loss of vision and Denies weakness Psychiatric Denies anxiety, Denies confusion, Denies depression, Denies homicidal ideation and Denies suicidal ideation Endocrine Denies palpitations Hematologic/Lymphatic Denies easy bruising Allergic/Immunologic Denies wheezing [facility] Medical History Anxiety disorder (Acute) Morbid obesity with BMI of 45.0-49.9, adult (Acute) Small bowel obstruction due to adhesions (Acute) HTN (hypertension) (Chronic) Migraine (Chronic) Postoperative ileus (Resolved) Surgical History Status post exploratory laparotomy (Acute) Status post appendectomy (Resolved) Status post hysterectomy (Resolved) Family History Mother Hypertension Diabetes mellitus Father Cancer Social History household members: significant other, family and children Smoking Status: Former smoker Family History Mother Hypertension Diabetes mellitus Father Cancer Social History household members: significant other, family and children Smoking Status: Former smoker Exam Narrative Exam Narrative: GENERAL: 53-year-old female appears older than stated age, obviously quite uncomfortable and rocking back and forth in her car. HEAD: Atraumatic. Normocephalic. No temporal or scalp tenderness. EYES: Pupils equal round and reactive. Extraocular motions intact. No scleral icterus. No injection or drainage. ENT: Nose without bleeding, purulent drainage or septal hematoma. Throat without erythema, tonsillar hypertrophy or exudate. Uvula midline. Airway patent. NECK: Trachea midline. No JVD or lymphadenopathy. Supple, nontender, no meningeal signs. CARDIOVASCULAR: Regular rate and rhythm without murmurs, gallops, or rubs. RESPIRATORY: Clear to auscultation. Breath sounds equal bilaterally. No wheezes, rales, or rhonchi. GASTROINTESTINAL: Abdomen soft, tender, decreased output from G-tube, nondistended. No hepato-splenomegaly, or palpable masses. No guarding. EXTREMITIES: No clubbing, cyanosis, or edema. No joint tenderness, effusion, or edema noted. BACK: Nontender without deformity or crepitance. No flank tenderness. NEURO: AOx3. SKIN: No rash or erythema. Initial Vital Signs Initial Vital Signs: Vital Signs Temperature 98.4 F 09/08/18 00:10 Pulse Rate 105 H 09/08/18 00:10 Respiratory Rate 22 09/08/18 00:10 Blood Pressure 166/93 H 09/08/18 00:10 Pulse Oximetry 98 09/08/18 00:10 Course Orders Ordered: ED Orders 09/08/18 00:28 XR acute abdomen series Stat 09/08/18 00:54 Basic Metabolic Panel Stat Complete Blood Count AUTO DIFF Stat 09/08/18 01:17 Lactate (Lactic Acid) Stat Ondansetron HCl (Zofran) 4 mg IV Q4HR PRN PRN Reason: Nausea And Vomiting Last Admin: 09/08/18 01:07 Dose: 4 mg Discontinued Medications Hydromorphone HCl (Dilaudid) 1 mg IV NOW ONE Stop: 09/08/18 01:40 Last Admin: 09/08/18 01:45 Dose: 1 mg Sodium Chloride (Normal Saline 0.9%) 1,000 mls @ 1,000 mls/hr IV BOLUS ONE Stop: 09/08/18 01:26 Last Admin: 09/08/18 01:06 Dose: 1,000 mls/hr Consultations Consultation #1: Dr. Cantu is happy to accept patient on her service Vital Signs - 8 hr 09/08/18 00:10 Temperature 98.4 F Pulse Rate 105 H Respiratory Rate 22 Blood Pressure 166/93 H Pulse Oximetry 98 MDM - Abdominal Pain Medical Records Attestation: I reviewed the patient's medical records. Lab Data Attestation: I reviewed the patient's lab results. Result diagrams: 09/08/18 00:54 09/08/18 00:54 Lab Results 09/08/18 09/08/18 09/08/18 Range/Units 00:54 00:54 01:17 WBC 9.2 (4.5-11.0) X10^3/uL RBC 4.34 (4.0-5.2) X10^6/uL Hgb 11.8 L (12.0-16.0) g/dL Hct 35.3 L (36-46) % MCV 81.4 (80-100) fL MCH 27.1 (26-34) PG MCHC 33.3 (30-36) % RDW 18.2 H (11.6-14.8) % Plt Count 279 (150-400) X10^3/uL Neut % (Auto) 73.3 (50-75) % Lymph % (Auto) 19.0 L (25-40) % Kay % (Auto) 6.6 (3-14) % Eos % (Auto) 0.3 L (2-4) % Baso % (Auto) 0.8 (0-2) % Neut # (Auto) 6700 (6238-9561) /uL Lymph # (Auto) 1700 (9245-2534) /uL Kay # (Auto) 600 (0-900) /uL Eos # (Auto) 0 (0-450) /uL Baso # (Auto) 100 (0-100) /uL Sodium 138 (137-145) mmol/L Potassium 3.6 (3.4-5.1) mmol/L Chloride 105 (98-107) mmol/L Carbon Dioxide 24 (22-32) mmol/L BUN 23 H (7-17) mg/dL Creatinine 0.70 (0.52-1.04) mg/dL Estimated GFR > 60.0 (>60) mL/min BUN/Creatinine Ratio 32.9 H (6-22) Glucose 94 (70-100) mg/dL Lactate 1.1 (0.7-2.1) mmol/L Calcium 9.3 (8.4-10.2) mg/dL Imaging Data Abdominal x-ray: My impression: SBO Discharge Plan Departure Patient Disposition: Admitted As Inpatient Clinical Impression: Small bowel obstruction
--- NOTE | 2018-09-08 00:28 | DI.RAD.S_ITS ---
PROCEDURE: XR ACUTE ABDOMEN SERIES INDICATIONS: Abdominal pain TECHNIQUE: One view chest and two views of the abdomen were acquired. COMPARISON: [facility], CT, CT ABDOMEN PELVIS W CON, 07/22/2018, 16:16. [facility], CR, XR ACUTE ABDOMEN SERIES, 09/06/2018, 14:32. FINDINGS: Surgical changes and devices: Gastrostomy tube. Chest: Lungs are clear. Heart size is normal. No pleural effusions. No pneumoperitoneum. Abdomen: Numerous air-fluid levels present. Gas present in both large and small bowel. Findings may represent ileus versus gastroenteritis. Bones: No suspicious bony lesions. IMPRESSION: Numerous nondilated loops of bowel with air-fluid levels. Gas present throughout the colon. Findings may represent ileus pattern versus gastroenteritis. Dictated by: Bassam Lorenz M.D. on 09/08/2018 at 9:05 Approved by: Bassam Lorenz M.D. on 09/08/2018 at 9:07
[2018-09-08] MEDS: SODIUM CHLORIDE 0.9% 1,000 ML 1000 ML IV (01:06)
[2018-09-08] MEDS: ONDANSETRON 4 MG/2 ML INJ IV (01:07)
[2018-09-08 01:08] LABS: Add Manual Diff / Slide Review NO; Basophils Absolute Auto 100 /uL (0-100); Basophils Percent Auto 0.8 % (0-2); Eosinophils Absolute Auto 0 /uL (0-450); Eosinophils Percent Auto 0.3 % (2-4); Hematocrit 35.3 % (36-46); Hemoglobin 11.8 g/dL (12.0-16.0); Lymphocytes Absolute Auto 1700 /uL (1100-4500); Mean Corpuscular HGB Conc 33.3 % (30-36); Mean Corpuscular Hemoglobin 27.1 PG (26-34); Mean Corpuscular Volume 81.4 fL (80-100); Monocytes Absolute Auto 600 /uL (0-900); Monocytes Percent Auto 6.6 % (3-14); Neutrophils Absolute Auto 6700 /uL (1500-7000); Neutrophils Percent Auto 73.3 % (50-75); Platelet Count 279 X10^3/uL (150-400); Red Blood Cell Count 4.34 X10^6/uL (4.0-5.2); Red Cell Distribution Width 18.2 % (11.6-14.8); White Blood Cell Count 9.2 X10^3/uL (4.5-11.0)
[2018-09-08 01:13] LABS: BUN Creatinine Ratio 32.9 (6-22); Blood Urea Nitrogen 23 mg/dL (7-17); Calcium 9.3 mg/dL (8.4-10.2); Carbon Dioxide 24 mmol/L (22-32); Chloride 105 mmol/L (98-107); Estimated Glomerular Filt Rate > 60.0 mL/min (>60); Glucose 94 mg/dL (70-100); HEMOLYSIS < 15 (0-50); Potassium 3.6 mmol/L (3.4-5.1); Sodium 138 mmol/L (137-145)
[2018-09-08 01:30] LABS: Lactate (Lactic Acid) 1.1 mmol/L (0.7-2.1)
[2018-09-08] MEDS: HYDROMORPHONE 1 MG INJ IV (01:45)
--- NOTE | 2018-09-08 02:50 | PC.NURSE ---
Gastric tube irrigated with NS. Instilled 100ml of NS and obtained 25 ml of greenish semi thick gastric content and pt tolerated well
[2018-09-08] MEDS: HYDROMORPHONE PCA (6MG/30ML) 6 MG/30 ML PCA.VIAL IV ×2 (03:33→16:30)
[2018-09-08] MEDS: SODIUM CHLORIDE 0.9% 1,000 ML 125 ML IV (03:42)
--- NOTE | 2018-09-08 04:05 | PC.NURSE ---
0100- Pt admit from ED for chronic SBO w/ inc abdom pain & emesis. Arrived to the unit walking, denies any dizziness. 2 lumen PICC present in R upper arm. Admit assessment complete, pt denies nausea just states some cramping is present. 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
--- NOTE | 2018-09-08 08:13 | PM.HP.1 ---
History of Present Illness Date Patient Seen: 09/08/18 Time Patient Seen: 08:13 Chief complaint: abdominal cramps, vomiting for 24 hours Narrative: 53-year-old white female patient with a very unfortunate history of recurring bowel obstructions. She had a hysterectomy about 15 years ago and an appendectomy. She had a bowel obstruction enterolysis in April of 2018 and a 2nd enterolysis in June of 2018 she has been in and out of this hospital repeatedly subsequent to that. Had an enterocutaneous fistula which finally closed spontaneously. She comes in this time with the same symptoms of crampy abdominal pain and vomiting. Abdominal x-rays taken last night in the emergency room revealed air-fluid levels in the small bowel however there is clearly gas in the colon and rectum. Therefore she has a partial small bowel obstruction. she was seen at the [facility] surgery. department. This past week. They have recommended waiting another 3 months before exploratory laparotomy with necessary enterolysis and or resections. That seems like a prudent recommendation. I have explained this to the patient she understands. Patient History Medical History Anxiety disorder (Acute) Morbid obesity with BMI of 45.0-49.9, adult (Acute) Small bowel obstruction due to adhesions (Acute) HTN (hypertension) (Chronic) Migraine (Chronic) Postoperative ileus (Resolved) Surgical History Status post exploratory laparotomy (Acute) Status post appendectomy (Resolved) Status post hysterectomy (Resolved) Family History Mother Hypertension Diabetes mellitus Father Cancer Social History household members: significant other, family and children Smoking Status: Former smoker Family & Social History Family History Mother Hypertension Diabetes mellitus Father Cancer Social History: household members significant other,family,children Prior Living Arrangements House Safety & Behavioral: Feels Safe in Current Yes Environment Been Physically Hurt or No Threatened By a Person Suicidal Ideation Description None Suicide Plan Description No Plan Tobacco & Substance use: Smoking Status Former smoker alcohol intake frequency holiday/special occasion Substance Use Type does not use Meds Home Medications Medication Instructions Recorded Confirmed Type citalopram 20 mg PO DAILY #30 tab 08/10/18 09/08/18 Rx diphenhydramine HCl [Allergy 25 mg PO Q6HR PRN #30 tab 08/10/18 09/08/18 Rx (diphenhydramine)] ondansetron 4 mg SUBLINGUAL Q4HR PRN #30 tab 08/10/18 09/08/18 Rx pantoprazole 40 mg PO DAILY #30 tab 08/10/18 09/08/18 Rx sennosides [Senokot] 8.6 mg PO BEDTIME #10 tab 08/10/18 09/08/18 Rx lisinopril 10 mg PO BEDTIME 08/15/18 09/08/18 History morphine 15 mg immediate release 15 mg PO Q4-6H PRN #40 tab 08/23/18 09/08/18 Rx tablet lorazepam 1 mg tablet 1 mg PO Q4HR PRN #30 tab 09/03/18 09/08/18 Rx acetaminophen 325 mg PO Q6HR PRN 09/06/18 09/08/18 History meclizine 25 mg PO TID PRN 09/06/18 09/08/18 History promethazine 25 mg PO Q6H PRN #10 tab 09/06/18 09/08/18 Rx metoclopramide HCl [Reglan] 10 mg PO Q6H #20 tab 09/07/18 09/08/18 Rx Allergies Allergy/AdvReac Type Severity Reaction Status Date / Time Penicillins Allergy Intermediate Hives Verified 09/08/18 00:12 ranitidine [From Zantac] Allergy Intermediate Hives Verified 09/08/18 00:12 Review of Systems Review of Systems All systems reviewed & are unremarkable except as noted in HPI and below Exam Vital Signs (past 8 hours): - 09/08/18 02:49 09/08/18 03:17 Temperature 98.4 F Pulse Rate 89 91 H Respiratory Rate 16 16 Blood Pressure 130/71 Blood Pressure [Left Arm] 123/58 L Pulse Oximetry 96 97 Oxygen Delivery Method Room Air Narrative Exam Narrative: On exam she is comfortable this morning with only minimal abdominal pain and no more vomiting. Lungs are clear heart regular rhythm no murmur abdomen is soft with some left lower quadrant tenderness no guarding no rebound. Objective Labs Result Diagrams: 09/08/18 00:54 09/08/18 00:54 Labs: Laboratory Results - last 24 hr 09/08/18 09/08/18 09/08/18 00:54 00:54 01:17 WBC 9.2 RBC 4.34 Hgb 11.8 L Hct 35.3 L MCV 81.4 MCH 27.1 MCHC 33.3 RDW 18.2 H Plt Count 279 Neut % (Auto) 73.3 Lymph % (Auto) 19.0 L [place] % (Auto) 6.6 Eos % (Auto) 0.3 L Baso % (Auto) 0.8 Neut # (Auto) 6700 Lymph # (Auto) 1700 [place] # (Auto) 600 Eos # (Auto) 0 Baso # (Auto) 100 Sodium 138 Potassium 3.6 Chloride 105 Carbon Dioxide 24 BUN 23 H Creatinine 0.70 Estimated GFR > 60.0 BUN/Creatinine Ratio 32.9 H Glucose 94 Lactate 1.1 Calcium 9.3 Assessment & Plan Assessment & Plan narrative: Patient has recurring partial small bowel obstruction. she definitely needs exploratory surgery possible resection and certainly an enterolysis this has been scheduled for 3 months from now at [facility] which I think is a good plan. she is certainly at high risk patient. Quality VTE Deep Vein Thrombosis/Pulmonary Embolism Present on Admission: No
[2018-09-08] MEDS: SODIUM CHLORIDE 0.9% 1,000 ML 100 ML IV (12:32)
--- NOTE | 2018-09-08 15:12 | PC.NURSE ---
Pt has denied pain or abdominal cramps all shift. She used 2.6mg of her Dilaudid WATER SAFETY INSTRUCTOR . Up with 1 PA and steady on her feet with iv pole. Dr Cantu into see patient and he has started her on tpn and she will also start bs q 6 Hours. Resting comfortably.
[2018-09-08] MEDS: [UNRECOGNIZED DRUG - OTHER] IV (18:53)
[2018-09-08] MEDS: LYTES IV (18:53)
[2018-09-08] MEDS: DEXT IV (18:53)
[2018-09-08] MEDS: SODIUM CHLORIDE 0.9% IV (18:53)
[2018-09-08] MEDS: CALCIUM IV (18:53)
[2018-09-08] MEDS: FAT EMULSIONS 50 GM/250 ML EMULSION IV (18:53)
[2018-09-08] MEDS: LORazepam 2 MG/ML SYRINGE 1 MG IV (21:59)
[2018-09-08] MEDS: DEXTROSE 5%-0.45% NS 1,000 ML 75 ML IV (22:00)
--- NOTE | 2018-09-08 22:34 | PC.NURSE ---
Evening notes: Carol is awake, drowsy, Ox3, tearful at times, expressed a lot of anxiety about her condition, being back in hospital again. Reports intermittent abd cramping, using CHIEF HYDROELECTRIC STATION OPERATOR as needs, used 2.4 mg total last 8 hours. Rates pain /10. I notified Dr Keller about patient's emotions & request for Ativan, Ativan then ordered and administered. He also ordered to change IVF (maintenance) to D5-1/2 and infuse at 75 ml/hour, except when TPN infusing, he ordered to run D5-1/2 at TKO while TPN infusing. Patient ambulated hallways twice tonight, needing only SBA, reports steady when ambulating. Her VS remain stable, Lungs clear but diminished posterior bases. Gastrostomy tube remains capped tonight, she mentioned earlier that she normally empties it once each day. Denies further concerns or needs at this time, spouse at bedside visiting. Pt instructed to call if she needs anything at all tonight--she agrees to this plan.
--- NOTE | 2018-09-09 00:42 | PC.NURSE ---
2300- TPN + Lipids running as ordered w/ D5 1/2 NS (see MAR for details) into designated lumen of R upper arm PICC. FLOORING HELPER pump totals cleared, button within reach, pt states her pain is controlled at this time. G-tube capped, pt stated she will drain it when she feels it needs to be done. Will cont to monitor; remains NPO/ice chips only. Moving independently/SBA w/ IV pole. 0520- IV PRN Ativan administered into PICC for pt's inc anxiety. Ordered as BID, pt states she takes the medication more often than that. Will pass onto oncoming RN & MD. 0630- FLOORING HELPER cleared, pt states her pain feels very well managed.
[2018-09-09 05:14] VITALS: BP 139/85; PULSE 76; RESP 20; TEMP 36.6; O2SAT 97
[2018-09-09] MEDS: LORazepam 2 MG/ML SYRINGE 1 MG IV ×2 (05:20→16:21)
[2018-09-09 07:40] VITALS: BP 116/79; PULSE 66; RESP 16; TEMP 36.2; O2SAT 100
[2018-09-09] MEDS: ONDANSETRON 4 MG/2 ML INJ IV (08:53)
--- NOTE | 2018-09-09 10:02 | PM.PN.1 ---
Subjective Date Patient Seen: 09/09/18 Time Patient Seen: 10:02 Interval history: Patient hospitalized with chronic intermittent small bowel obstruction subjectively she is feeling somewhat better today has nausea but no vomiting. She did have a large diarrhea stool. Exam Vital Signs (past 8 hours): - 09/09/18 05:14 Temperature 97.9 F Pulse Rate 76 Respiratory Rate 20 Blood Pressure 139/85 Pulse Oximetry 97 Oxygen Delivery Method Room Air Narrative Exam Narrative: Patient is afebrile abdomen is soft with some left-sided abdominal tenderness gastrostomy putting out minimal clear fluid. Objective Labs Result Diagrams: 09/08/18 00:54 09/08/18 00:54 Assessment & Plan Assessment & Plan narrative: Patient has chronic persistent small-bowel obstruction which causes her a great deal of intermittent abdominal pain. at some point I think she should have a laparotomy and resection. She has been seen at the [facility] surgery [facility] and they have recommended the same after waiting and additional 3 months. Not certain that the patient can wait that long. I will discuss this with another surgeon here at this facility. It could be that with 2 fully trained surgeons operating on her together we should be able to safely resect the offending portion of small bowel. Quality VTE Deep Vein Thrombosis/Pulmonary Embolism Present on Admission: No
[2018-09-09 11:33] LABS: BUN Creatinine Ratio 21.4 (6-22); Blood Urea Nitrogen 15 mg/dL (7-17); Calcium 8.8 mg/dL (8.4-10.2); Carbon Dioxide 28 mmol/L (22-32); Chloride 105 mmol/L (98-107); Estimated Glomerular Filt Rate > 60.0 mL/min (>60); Glucose 100 mg/dL (70-100); HEMOLYSIS < 15 (0-50); Potassium 4.3 mmol/L (3.4-5.1); Sodium 139 mmol/L (137-145)
--- NOTE | 2018-09-09 13:22 | PC.NURSE ---
Pts gastrostomy tube hooked up to gravity and putting out a greenish/clear bile. She is up to bathroom with sba and steady on her feet. TPN stopped after being decreased to 101. Pt is tolerating clear liquids. Given zofran for complaints of nausea and pt is better. Resting
[2018-09-09 15:59] VITALS: BP 131/85; PULSE 76; RESP 18; TEMP 36.7; O2SAT 100
--- NOTE | 2018-09-09 16:07 | CM.IDA ---
Initial DCP Assessment Note: Pt is a 53 yo female, resident of [facility], admitted again for abd cramping/SBO. Payer: [employer]icaid. Pt familiar to this team from multiple admissions to after an initial abd surgery in April 2018. She is sustained at home by TPN. Attempted to meet w/pt, she was on the phone and someone was visiting at bedside. Reviewed chart and spoke w/Dr Cantu. He explained that pt had been to [facility] this week to discuss additional surgery and they suggested she be scheduled in December for removal (partial vs complete?) of small bowell. Dr Cantu feels strongly that pt requires surgery. He plans to review this case w/ Dr Chris Monday to determine next steps. We discussed the decreased quality of life Carol has been experiencing and Dr Cantu agrees that pt should be presented w/the options available to her once they are determined here at [facility]. Pt should have the right to move forward w/surgery at [facility] if it is offered and the risks and possible benefits should be reviewed in detail. SUPERVISOR CHAR HOUSE team will be following closely and will remain available to address any DC needs or concerns that arise, especially as the medical POC unfolds. SUPERVISOR [employer]SE team will also need to take an active role in patient advocacy and support for pt and medical staff. BRENDAN Verde
[2018-09-09] MEDS: DEXTROSE 5%-0.45% NS 1,000 ML 75 ML IV (16:37)
[2018-09-09] MEDS: CALCIUM IV (18:16)
[2018-09-09] MEDS: DEXT IV (18:16)
[2018-09-09] MEDS: [UNRECOGNIZED DRUG - OTHER] IV (18:16)
[2018-09-09] MEDS: LYTES IV (18:16)
[2018-09-09] MEDS: SODIUM CHLORIDE 0.9% IV (18:16)
[2018-09-09] MEDS: FAT EMULSIONS 50 GM/250 ML EMULSION IV (18:17)
[2018-09-10] VITALS (8 sets, daily range): BP systolic 115–133; BP diastolic 63–87; PULSE 68–81; RESP 16–20; TEMP 36.1–36.7; O2SAT 96–99
[2018-09-10] MEDS: LORazepam 2 MG/ML SYRINGE 1 MG IV ×4 (04:41→21:29)
--- NOTE | 2018-09-10 06:47 | PC.NURSE ---
Cannot add to ERECTOR OPERATOR infusion as last vial change was not scanned therefore vial is beyond totaling. Pt used 2mg on clinical systems analyst.
[2018-09-10] MEDS: ONDANSETRON 4 MG/2 ML INJ IV (09:12)
--- NOTE | 2018-09-10 09:50 | PM.PN.1 ---
Subjective Date Patient Seen: 09/10/18 Time Patient Seen: 09:51 Interval history: This very complicated patient who has been readmitted again for small bowel obstruction with symptoms of vomiting and severe abdominal pain. since admission 2 days ago she is resolving her pain and has had some liquid stools. She has stopped vomiting. Exam Vital Signs (past 8 hours): - 09/10/18 06:00 09/10/18 08:00 Temperature 97 F L 97.7 F Pulse Rate 75 78 Respiratory Rate 18 16 Blood Pressure 120/64 115/75 Pulse Oximetry 96 99 Oxygen Delivery Method Room Air Oxygen Flow Rate 0 Narrative Exam Narrative: Patient is afebrile her abdomen is soft with minimal tenderness no masses are palpated her incision is fully healed Objective Labs Result Diagrams: 09/08/18 00:54 09/09/18 11:15 Labs: Laboratory Results - last 24 hr 09/09/18 11:15 Sodium 139 Potassium 4.3 Chloride 105 Carbon Dioxide 28 BUN 15 Creatinine 0.70 Estimated GFR > 60.0 BUN/Creatinine Ratio 21.4 Glucose 100 Calcium 8.8 Assessment & Plan Assessment & Plan narrative: This is a complex patient. She had an exploratory laparotomy for bowel obstruction in April of 2018 and again in June of 2018 after which she developed an enterocutaneous fistula. She has been seen at the [facility] last week in the recognize that she has incomplete or partial small bowel obstruction and I have advised a laparotomy to be done several months from now actually 3 months from now. This patient has failed her conservative management at this point is continually requiring readmission to the hospital. She is on home TPN and TPN while here. She only stays home for a few weeks and then gets readmitted to the hospital with abdominal pain and vomiting. She has a PICC line in the right arm which has now developed some swelling. she has already had a PICC line in the left arm for TPN. I am likely going to have a new PICC line placed in the left arm we will ultrasound the right venous system to rule out clot. Although all signs indicate a small bowel obstruction the patient's family is concerned that she may have some form of colonic obstruction as well. therefore I have ordered a barium enema with only saline enemas for prep. Patient will not tolerate drinking a p.o. prep for colonoscopy or barium enema. So we will study her by cleansing an evaluation from below. My impression is this patient is failing this conservative management and needs an operation. I will be discussing this with 1 of my colleagues here at this institution and if he agrees we will operate on her together in the next week or so. I have also encouraged the patient and her family to re-contact the surgeons at [facility] to see if they would reconsider a more urgent approach. Quality VTE Deep Vein Thrombosis/Pulmonary Embolism Present on Admission: No
--- NOTE | 2018-09-10 09:57 | P.PN_ITS ---
Subjective Date Patient Seen: 09/10/18 Time Patient Seen: 09:51 Interval history: This very complicated patient who has been readmitted again for small bowel obstruction with symptoms of vomiting and severe abdominal pain. since admission 2 days ago she is resolving her pain and has had some liquid stools. She has stopped vomiting. Exam Vital Signs (past 8 hours): - 09/10/18 06:00 09/10/18 08:00 Temperature 97 F L 97.7 F Pulse Rate 75 78 Respiratory Rate 18 16 Blood Pressure 120/64 115/75 Pulse Oximetry 96 99 Oxygen Delivery Method Room Air Oxygen Flow Rate 0 Narrative Exam Narrative: Patient is afebrile her abdomen is soft with minimal tenderness no masses are palpated her incision is fully healed Objective Labs Result Diagrams: 09/08/18 00:54 09/09/18 11:15 Labs: Laboratory Results - last 24 hr 09/09/18 11:15 Sodium 139 Potassium 4.3 Chloride 105 Carbon Dioxide 28 BUN 15 Creatinine 0.70 Estimated GFR > 60.0 BUN/Creatinine Ratio 21.4 Glucose 100 Calcium 8.8 Assessment & Plan Assessment & Plan narrative: This is a complex patient. She had an exploratory laparotomy for bowel obstruction in April of 2018 and again in June of 2018 after which she developed an enterocutaneous fistula. She has been seen at the [facility] last week in the recognize that she has incomplete or partial small bowel obstruction and I have advised a laparotomy to be done several months from now actually 3 months from now. This patient has failed her conservative management at this point is continually requiring readmission to the hospital. She is on home TPN and TPN while here. She only stays home for a few weeks and then gets readmitted to the hospital with abdominal pain and vomiting. She has a PICC line in the right arm which has now developed some swelling. she has already had a PICC line in the left arm for TPN. I am likely going to have a new PICC line placed in the left arm we will ultrasound the right venous system to rule out clot. Although all signs indicate a small bowel obstruction the patient's family is concerned that she may have some form of colonic obstruction as well. therefore I have ordered a barium enema with only saline enemas for prep. Patient will not tolerate drinking a p.o. prep for colonoscopy or barium enema. So we will study her by cleansing an evaluation from below. My impression is this patient is failing this conservative management and needs an operation. I will be discussing this with 1 of my colleagues here at this nstitution and if he agrees we will operate on her together in the next week or so. I have also encouraged the patient and her family to re-contact the surgeons at [facility] to see if they would reconsider a more urgent approach. Quality VTE Deep Vein Thrombosis/Pulmonary Embolism Present on Admission: No
[2018-09-10] MEDS: HYDROMORPHONE PCA (6MG/30ML) 6 MG/30 ML PCA.VIAL IV (10:06)
--- NOTE | 2018-09-10 10:53 | DI.RAD.S_ITS ---
PROCEDURE: XR CHEST FOR PICC 1V INDICATIONS: PICC PLACEMENT COMPARISON: [facility], CR, XR CHEST FOR PICC 1V, 07/06/2018, 16:25. [facility], CR, XR CHEST FOR PICC 1V, 05/02/2018, 10:19. [facility], CR, XR ACUTE ABDOMEN SERIES, 09/08/2018, 0:33. FINDINGS: Left arm PICC catheter is present, tip of which is in the upper SVC. Right arm PICC has been placed, tip of which appears to be in the right brachiocephalic vein. Heart is enlarged. Lungs are clear. No pleural effusions or pneumothoraces. IMPRESSION: Bilateral PICC catheters as described above. Dictated by: Elif Peña M.D. on 09/10/2018 at 11:40 Approved by: Elif Peña M.D. on 09/10/2018 at 11:41
[2018-09-10] MEDS: DEXTROSE 5%-0.45% NS 1,000 ML 75 ML IV (12:25)
--- NOTE | 2018-09-10 14:35 | DI.US.S_ITS ---
PROCEDURE: US PERIPH VENOUS UP EXTREM RT INDICATIONS: rule out clot at present picc line TECHNIQUE: Real-time imaging, as well as color and pulse Doppler interrogation, was performed of the right upper extremity deep veins from the inferior neck to the antecubital fossa. COMPARISON: None. FINDINGS: The internal jugular vein, visualized portions of the subclavian vein, axillary, and brachial veins are free of intraluminal thrombus. Where physically possible, the veins are normally compressible. Color and pulse Doppler demonstrate normal intraluminal flow, with expected phasicity and pulsatility. Additional scanning of the cephalic and basilic veins of the superficial system demonstrate normal compressibility, without thrombus. The PICC line catheter is seen within the right basilic vein no drainable or loculated fluid collections within the right upper arm are imaged. IMPRESSION: No evidence of a deep vein thrombosis within the right upper extremity. Dictated by: Javier Gonzáles M.D. on 09/10/2018 at 14:25 Approved by: Javier Gonzáles M.D. on 09/10/2018 at 14:26
[2018-09-10] MEDS: FAT EMULSIONS 50 GM/250 ML EMULSION IV (18:00)
[2018-09-10] MEDS: LYTES IV (18:03)
[2018-09-10] MEDS: [UNRECOGNIZED DRUG - OTHER] IV (18:03)
[2018-09-10] MEDS: CALCIUM IV (18:03)
[2018-09-10] MEDS: SODIUM CHLORIDE 0.9% IV (18:03)
[2018-09-10] MEDS: DEXT IV (18:03)
--- NOTE | 2018-09-10 22:51 | PC.NURSE ---
VENKATA [facility] dc'd@ [phone]. abdominal pain 10/19, pt used 4.6mg of her NUTRITION SERVICES ASSISTANT.
--- NOTE | 2018-09-11 | DI.RAD.S_ITS ---
PROCEDURE: FL ABDOMEN 1V (BARIUM ENEMA) INDICATIONS: possible colon obstruction, has small bowel obstruction TECHNIQUE: One view of the abdomen acquired. COMPARISON: [facility], , US PERIPH VENOUS UP EXTREM RT, 09/10/2018, 14:49. FINDINGS: Surgical changes and devices: There is a percutaneous gastrostomy. Bowel: Bowel gas pattern is nonobstructive. There is abundant bowel gas in the distal colon. Large amount of stool is present in proximal colon. Soft tissues: Multiple pelvic calcifications are most likely phleboliths. Visualized solid organ contours appear normal in size. Bones: No suspicious bony lesions. IMPRESSION: 1. Nonobstructive bowel gas pattern. There is a large amount of stool in the right colon. 2. Percutaneous gastrostomy. Dictated by: Nirali Canchola M.D. on 09/11/2018 at 14:26 Approved by: Nirali Canchola M.D. on 09/11/2018 at 14:28
[2018-09-11] MEDS: LORazepam 2 MG/ML SYRINGE 1 MG IV ×5 (02:33→22:37)
--- NOTE | 2018-09-11 02:56 | PC.NURSE ---
Shift Note: Received pt from evening shift. Performed enema on pt (her 3rd so far) and was still producing stool at this time. Pt became very tearful when discussing course of treatment and the options regarding surgery. Pt reports feeling unsure if she can wait til December to have surgery at [facility] or if going ahead with surgery now is best. Allowed pt to voice feelings and concerns.
[2018-09-11] MEDS: HYDROMORPHONE PCA (6MG/30ML) 6 MG/30 ML PCA.VIAL IV ×2 (03:10→21:56)
[2018-09-11 07:30] VITALS: BP 128/79; PULSE 80; RESP 18; TEMP 37.1; O2SAT 98
[2018-09-11] MEDS: DEXTROSE 5%-0.45% NS 1,000 ML 75 ML IV (13:27)
--- NOTE | 2018-09-11 13:35 | PC.NURSE ---
pt left at 1330 for imaging, SL at this time.
[2018-09-11] MEDS: FLEETS ENEMA 1 EACH PR (13:59)
[2018-09-11] MEDS: MAGNESIUM CITRATE 300 ML SOLUTION 150 ML PO (15:42)
[2018-09-11 15:56] VITALS: BP 136/75; PULSE 76; RESP 17; TEMP 36.8; O2SAT 99
[2018-09-11] MEDS: SODIUM CHLORIDE 0.9% IV (17:57)
[2018-09-11] MEDS: CALCIUM IV (17:57)
[2018-09-11] MEDS: LYTES IV (17:57)
[2018-09-11] MEDS: [UNRECOGNIZED DRUG - OTHER] IV (17:57)
[2018-09-11] MEDS: DEXT IV (17:57)
[2018-09-11] MEDS: FAT EMULSIONS 50 GM/250 ML EMULSION IV (17:59)
--- NOTE | 2018-09-11 18:18 | PM.PN.1 ---
Subjective Date Patient Seen: 09/11/18 Time Patient Seen: 18:18 Interval history: Line back in her bed. She is somewhat tearful. She complains of minimal nausea. Her G-tube is currently clamped and she says that is because she has been drinking. She is not nauseated enough that she would like it opened. She has been having small stools throughout the day and has had 1 large stool. She has received at least 2 enemas. Exam Vital Signs (past 8 hours): - 09/11/18 15:56 Temperature 98.2 F Pulse Rate 76 Respiratory Rate 17 Blood Pressure 136/75 Pulse Oximetry 99 Oxygen Delivery Method Room Air Oxygen Flow Rate 0 Narrative Exam Narrative: Abdomen is soft and distended. Globally tender. Previously open wound has closed. Hypoactive bowel tones. Objective ECG Impression: Unable to perform barium enema today due to the large amount of stool [place] [address] XRay Report Signed Patient: Carol Reyes LMR#: [id number] : [id number]:[id number] Age/Sex: 53 / FDate of Service: 09/11/18 Loc: [id number] Accession Number: [id number] Procedure: FL abdomen 1v (barium enema) Ordering Provider: Jarocho Cantu MD PROCEDURE: FL ABDOMEN 1V (BARIUM ENEMA) INDICATIONS: possible colon obstruction, has small bowel obstruction TECHNIQUE: One view of the abdomen acquired. COMPARISON: [facility], , PERIPH VENOUS UP EXTREM RT, 09/10/2018, 14:49. FINDINGS: Surgical changes and devices: There is a percutaneous gastrostomy. Bowel: Bowel gas pattern is nonobstructive. There is abundant bowel gas in the distal colon. Large amount of stool is present in proximal colon. Soft tissues: Multiple pelvic calcifications are most likely phleboliths. Visualized solid organ contours appear normal in size. Bones: No suspicious bony lesions. IMPRESSION: 1. Nonobstructive bowel gas pattern. There is a large amount of stool in the right colon. 2. Percutaneous gastrostomy. Dictated by: Nirali Canchola M.D. on 09/11/2018 at 14:26 Approved by: Nirali Canchola M.D. on 09/11/2018 at 14:28 Labs Result Diagrams: 09/08/18 00:54 09/09/18 11:15 Assessment & Plan Assessment & Plan narrative: Recurrent admission with a diagnosis of small-bowel obstruction. Her picture is confusing. I have discussed this again today with Dr. Chris. The barium enema was ordered because of concern for a possible colonic obstruction. There does not appear to be such an issue. I will cancel the barium enema for now. The patient has received a dose of magnesium citrate and so far is tolerating it well. We can follow her films and when her right colon is clear, we could always reconsider a different study. We will continue the TPN for now. It has been reordered. Recheck labs in the a.m.. Quality VTE Deep Vein Thrombosis/Pulmonary Embolism Present on Admission: No
[2018-09-11 20:25] VITALS: BP 121/74; PULSE 75; RESP 16; TEMP 36.3; O2SAT 95
--- NOTE | 2018-09-11 21:40 | PC.NURSE ---
pt drank 150cc of mag citrate then she had a small to medium size liquid stool. Barium enema cancelled per Dr. Mcgowan. call light in reach. bed alarm active. TPN will be infusing for 14 hrs @ 203cc/hr.
[2018-09-12] VITALS: BP 140/87; PULSE 77; RESP 15; TEMP 37.2; O2SAT 96
[2018-09-12] MEDS: LORazepam 2 MG/ML SYRINGE 1 MG IV ×5 (04:23→21:44)
[2018-09-12 05:50] LABS: Add Manual Diff / Slide Review NO; Basophils Absolute Auto 100 /uL (0-100); Eosinophils Absolute Auto 100 /uL (0-450); Eosinophils Percent Auto 2.9 % (2-4); Hematocrit 31.8 % (36-46); Hemoglobin 10.8 g/dL (12.0-16.0); Lymphocytes Absolute Auto 1400 /uL (1100-4500); Lymphocytes Percent Auto 27.6 % (25-40); Mean Corpuscular HGB Conc 33.9 % (30-36); Mean Corpuscular Volume 82.8 fL (80-100); Monocytes Absolute Auto 400 /uL (0-900); Monocytes Percent Auto 8.3 % (3-14); Neutrophils Absolute Auto 3100 /uL (1500-7000); Neutrophils Percent Auto 60.2 % (50-75); Platelet Count 196 X10^3/uL (150-400); Red Blood Cell Count 3.85 X10^6/uL (4.0-5.2); Red Cell Distribution Width 18.2 % (11.6-14.8); White Blood Cell Count 5.1 X10^3/uL (4.5-11.0)
[2018-09-12 06:00] LABS: Alanine Aminotransferase 28 IU/L (9-52); Albumin 2.9 g/dL (3.5-5.0); Albumin Globulin Ratio 0.9 (1.0-2.8); Alkaline Phosphatase 69 U/L (38-126); Aspartate Aminotransferase 20 IU/L (14-36); BUN Creatinine Ratio 17.1 (6-22); Bilirubin Total 0.2 mg/dL (0.2-1.3); Blood Urea Nitrogen 12 mg/dL (7-17); Calcium 8.7 mg/dL (8.4-10.2); Carbon Dioxide 33 mmol/L (22-32); Chloride 100 mmol/L (98-107); Estimated Glomerular Filt Rate > 60.0 mL/min (>60); Globulin 3.2 g/dL (1.7-4.1); Glucose 114 mg/dL (70-100); HEMOLYSIS < 15 (0-50); Magnesium 1.9 mg/dL (1.6-2.3); Potassium 3.6 mmol/L (3.4-5.1); Sodium 138 mmol/L (137-145); Total Protein 6.1 g/dL (6.3-8.2)
[2018-09-12 06:16] VITALS: BP 136/88; PULSE 82; RESP 15; TEMP 37; O2SAT 95
[2018-09-12] MEDS: cloNIDine TTS 0.1 MG PATCH TOP (10:48)
--- NOTE | 2018-09-12 10:48 | PM.PN.1 ---
Subjective Date Patient Seen: 09/12/18 Time Patient Seen: 10:48 Interval history: Carol reports she had some watery bowel movements last evening followed by a very large movement. She reports her abdomen is feeling better today. We talked specifically about what we are treating with morphine. Carol describes her discomfort as cramps and this is the reason she needs the medication. Today, she is comfortable. She is hungry and would like to start a diet if possible. When she saw the surgeons at , she was given a list of foods to try. Cream of wheat was on that list so she would like to start with that today. Exam Vital Signs (past 8 hours): - 09/12/18 06:16 Temperature 98.6 F Pulse Rate 82 Respiratory Rate 15 Blood Pressure 136/88 Pulse Oximetry 95 Oxygen Delivery Method Room Air Oxygen Flow Rate 0 Narrative Exam Narrative: Lungs: clear bilaterally Abd: soft, active bowel sounds, incisions are closed. Very minimal tenderness to palpation Objective Labs Result Diagrams: 09/12/18 05:10 09/12/18 05:10 Labs: Laboratory Results - last 24 hr 09/12/18 09/12/18 05:10 05:10 WBC 5.1 RBC 3.85 L Hgb 10.8 L Hct 31.8 L MCV 82.8 MCH 28.0 MCHC 33.9 RDW 18.2 H Plt Count 196 Neut % (Auto) 60.2 Lymph % (Auto) 27.6 [place] % (Auto) 8.3 Eos % (Auto) 2.9 Baso % (Auto) 1.0 Neut # (Auto) 3100 Lymph # (Auto) 1400 [place] # (Auto) 400 Eos # (Auto) 100 Baso # (Auto) 100 Sodium 138 Potassium 3.6 Chloride 100 Carbon Dioxide 33 H BUN 12 Creatinine 0.70 Estimated GFR > 60.0 BUN/Creatinine Ratio 17.1 Glucose 114 H Calcium 8.7 Magnesium 1.9 Total Bilirubin 0.2 AST 20 ALT 28 Alkaline Phosphatase 69 Total Protein 6.1 L Albumin 2.9 L Globulin 3.2 Albumin/Globulin Ratio 0.9 L Assessment & Plan Assessment & Plan narrative: 1. Decrease IV fluid and continue TPN at current rate. 2. I have cancelled BE for now. 3. Start with cream of wheat today and advance or continue as tolerated. 4. 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 5. Clonidine 0.1 mg patch. Will resume oral Morphine as she has been on it at home for a number of weeks. Will decrease the dose from 15 mg q 6 to 10 mg q 6 hours prn and look to wean her off of the medication over time. Quality VTE Deep Vein Thrombosis/Pulmonary Embolism Present on Admission: No
--- NOTE | 2018-09-12 10:55 | P.PN_ITS ---
Subjective Date Patient Seen: 09/12/18 Time Patient Seen: 10:48 Interval history: Carol reports she had some watery bowel movements last evening followed by a very large movement. She reports her abdomen is feeling better today. We talked specifically about what we are treating with morphine. Carol describes her discomfort as cramps and this is the reason she needs the medication. Today, she is comfortable. She is hungry and would like to start a diet if possible. When she saw the surgeons at , she was given a list of foods to try. Cream of wheat was on that list so she would like to start with that today. Exam Vital Signs (past 8 hours): - 09/12/18 06:16 Temperature 98.6 F Pulse Rate 82 Respiratory Rate 15 Blood Pressure 136/88 Pulse Oximetry 95 Oxygen Delivery Method Room Air Oxygen Flow Rate 0 Narrative Exam Narrative: Lungs: clear bilaterally Abd: soft, active bowel sounds, incisions are closed. Very minimal tenderness to palpation Objective Labs Result Diagrams: 09/12/18 05:10 09/12/18 05:10 Labs: Laboratory Results - last 24 hr 09/12/18 09/12/18 05:10 05:10 WBC 5.1 RBC 3.85 L Hgb 10.8 L Hct 31.8 L MCV 82.8 MCH 28.0 MCHC 33.9 RDW 18.2 H Plt Count 196 Neut % (Auto) 60.2 Lymph % (Auto) 27.6 [place] % (Auto) 8.3 Eos % (Auto) 2.9 Baso % (Auto) 1.0 Neut # (Auto) 3100 Lymph # (Auto) 1400 [place] # (Auto) 400 Eos # (Auto) 100 Baso # (Auto) 100 Sodium 138 Potassium 3.6 Chloride 100 Carbon Dioxide 33 H BUN 12 Creatinine 0.70 Estimated GFR > 60.0 BUN/Creatinine Ratio 17.1 Glucose 114 H Calcium 8.7 Magnesium 1.9 Total Bilirubin 0.2 AST 20 ALT 28 Alkaline Phosphatase 69 Total Protein 6.1 L Albumin 2.9 L Globulin 3.2 Albumin/Globulin Ratio 0.9 L Assessment & Plan Assessment & Plan narrative: 1. Decrease IV fluid and continue TPN at current rate. 2. I have cancelled BE for now. 3. Start with cream of wheat today and advance or continue as tolerated. 4. 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 5. Clonidine 0.1 mg patch. Will resume oral Morphine as she has been on it at [facility] for a number of weeks. Will decrease the dose from 15 mg q 6 to 10 mg q 6 hours prn and look to wean her off of the medication over time. Quality VTE Deep Vein Thrombosis/Pulmonary Embolism Present on Admission: No
[2018-09-12] MEDS: POLYETHYLENE GLYCOL 3350 17 GM POWD.PACK PO (11:43)
[2018-09-12] MEDS: CITALOPRAM 20 MG TABLET PO (11:44)
[2018-09-12] MEDS: PANTOPRAZOLE 40 MG VIAL IV (11:44)
[2018-09-12] MEDS: MORPHINE 10 MG/0.5 ML ORAL SYRINGE PO (11:48)
[2018-09-12 12:00] VITALS: BP 141/90; PULSE 80; RESP 16; TEMP 36.3; O2SAT 97
[2018-09-12 17:15] VITALS: BP 125/91; PULSE 81; RESP 16; TEMP 36.3; O2SAT 98
[2018-09-12] MEDS: CALCIUM IV (18:26)
[2018-09-12] MEDS: LYTES IV (18:26)
[2018-09-12] MEDS: SODIUM CHLORIDE 0.9% IV (18:26)
[2018-09-12] MEDS: DEXT IV (18:26)
[2018-09-12] MEDS: [UNRECOGNIZED DRUG - OTHER] IV (18:26)
[2018-09-12] MEDS: MORPHINE 15 MG IR TABLET 7.5 MG PO (18:27)
[2018-09-12] MEDS: FAT EMULSIONS 50 GM/250 ML EMULSION IV (18:27)
[2018-09-12 20:15] VITALS: BP 134/79; PULSE 82; RESP 16; TEMP 36.6; O2SAT 99
[2018-09-12 21:39] VITALS: BP 134/79; PULSE 82
[2018-09-12] MEDS: LISINOPRIL 10 MG TABLET PO (21:39)
[2018-09-13] VITALS (7 sets, daily range): BP systolic 107–129; BP diastolic 59–78; PULSE 70–80; RESP 15–16; TEMP 36.2–37.1; O2SAT 93–100
[2018-09-13] MEDS: MORPHINE 15 MG IR TABLET 7.5 MG PO ×4 (00:30→21:14)
[2018-09-13] MEDS: DEXTROSE 5%-0.45% NS 1,000 ML 25 ML IV (02:25)
[2018-09-13] MEDS: LORazepam 2 MG/ML SYRINGE 1 MG IV ×5 (03:55→21:53)
[2018-09-13] MEDS: CITALOPRAM 20 MG TABLET PO (08:33)
[2018-09-13] MEDS: PANTOPRAZOLE 40 MG VIAL IV (08:33)
[2018-09-13] MEDS: POLYETHYLENE GLYCOL 3350 17 GM POWD.PACK PO (08:33)
--- NOTE | 2018-09-13 13:11 | PM.PN.1 ---
Subjective Date Patient Seen: 09/13/18 Time Patient Seen: 13:11 Interval history: Carol is feeling a little depressed today. She says that she still is passing gas. She has only fleeting nausea. She tolerated cream of wheat and 8 most of a bowl of soup for lunch. She has not been out of bed yet today. She says that she is having more cramping today than yesterday. She understands that we decreased her pain medicine and she does not necessarily disagree with the plan. She says her boyfriend will be by later and would like to talk this afternoon. Exam Vital Signs (past 8 hours): - 09/13/18 06:09 09/13/18 07:57 Temperature 97.9 F 97.1 F L Pulse Rate 80 72 Respiratory Rate 15 16 Blood Pressure 113/66 121/59 L Pulse Oximetry 93 100 Oxygen Delivery Method Room Air Oxygen Flow Rate 0 Narrative Exam Narrative: Lungs are clear bilaterally. Poor respiratory effort Abdomen: Soft, global mild tenderness to palpation. Hypoactive bowel tones. Wound is closed. G-tube site has some hypergranulation tissue developing at the skin opening. We will dress this with Silvadene cream and dry gauze. Extremities: No edema Objective Labs Result Diagrams: 09/12/18 05:10 09/12/18 05:10 Assessment & Plan Assessment & Plan narrative: 1. There seems to be a slow trend toward improvement. This does not mean that she does not have any cramping at all but it certainly in her best interest to try to decrease the amount of narcotics she is taking. I have stopped her Reglan and hopefully this will help with cramping. 2. We need to continue TPN. She is taking minimal p.o. and certainly not enough to sustain herself. 3. Lab studies are reassuring. Glucose has been controlled. 4. Continue watchful waiting. Patience is certainly a virtue in this situation. 5. Encourage patient to ambulate and to shower this evening. Quality VTE Deep Vein Thrombosis/Pulmonary Embolism Present on Admission: No
[2018-09-13] MEDS: HYDROMORPHONE 2 MG INJ 1 MG IV (15:19)
--- NOTE | 2018-09-13 16:33 | PC.NURSE ---
Addendum entered by Destini Booth R.N. 09/13/18 18:40: Encourage patient to walk in room and take a shower. Prior to dinner, patient was a bit tearful and emotional, states feels overwhelmed. Reassurance provided. Encouraged to eat dinner, sitting at bedside having cream of wheat with moderate appetite, no nausea. Original Note: Kimberlee shift note: Dr. Mcgowan at bedside at 1530, G-tube replacement. Patient tolerated procedure well, pre medicated prior. Barrier cream applied to surrounding g-tube site.
[2018-09-13] MEDS: DEXT IV (17:54)
[2018-09-13] MEDS: [UNRECOGNIZED DRUG - OTHER] IV (17:54)
[2018-09-13] MEDS: CALCIUM IV (17:54)
[2018-09-13] MEDS: FAT EMULSIONS 50 GM/250 ML EMULSION IV (17:54)
[2018-09-13] MEDS: LYTES IV (17:54)
[2018-09-13] MEDS: SODIUM CHLORIDE 0.9% IV (17:54)
--- NOTE | 2018-09-13 18:47 | P.PN_ITS ---
Subjective Date Patient Seen: 09/13/18 Time Patient Seen: 18:43 Interval history: Patient reports her Gtube has been leaking. Exam Vital Signs (past 8 hours): - 09/13/18 15:15 09/13/18 15:40 Temperature 98.7 F 97.7 F Pulse Rate 74 72 Respiratory Rate 16 16 Blood Pressure 107/60 119/72 Pulse Oximetry 97 96 Oxygen Delivery Method Room Air Oxygen Flow Rate 0 Narrative Exam Narrative: The dressing was removed from the gastrostomy tube and the skin and the surrounding area cleaned. The balloon was deflated and the tube removed. A 22F balloon gastrostomy tube was placed in the opening. The balloon was inflated with 10 cc of sterile water. The skin opening was dressed with skin protective ointment and dry gauze. The patient tolerated the procedure well. Objective Labs Result Diagrams: 09/12/18 05:10 09/12/18 05:10 Assessment & Plan Assessment & Plan narrative: Carol is hoping to be discharged tomorrow. I spoke with the home health care case manager this evening. Everything is already set up at home. Carol has requested a refill of her medications and says that she is weaning herself off of her morphine at home. She is using 1 and only sometimes 2 tablets a day. I offered to refill her prescription at a slightly lower dose of 10 mg and she will attempt to use no more than 1 of those tablets each day. She can follow up with Dr. Chris after discharge. Quality VTE Deep Vein Thrombosis/Pulmonary Embolism Present on Admission: No
[2018-09-13] MEDS: LISINOPRIL 10 MG TABLET PO (21:15)
[2018-09-14] VITALS: BP 96/54; PULSE 72; RESP 16; TEMP 36.9; O2SAT 96
[2018-09-14] MEDS: LORazepam 2 MG/ML SYRINGE 1 MG IV ×3 (02:14→13:48)
[2018-09-14] MEDS: MORPHINE 15 MG IR TABLET 7.5 MG PO ×2 (05:08→11:00)
[2018-09-14 08:00] VITALS: BP 104/55; PULSE 72; RESP 16; TEMP 36.9; O2SAT 96
[2018-09-14] MEDS: PANTOPRAZOLE 40 MG VIAL IV (09:26)
[2018-09-14] MEDS: CITALOPRAM 20 MG TABLET PO (09:26)
[2018-09-14] MEDS: POLYETHYLENE GLYCOL 3350 17 GM POWD.PACK PO (09:26)
--- NOTE | 2018-09-14 13:50 | CM.DPC ---
DCP Cont: Faxed TPN order info to [facility] at fax # [phone]. Fax confirmation scanned in. Alicia Rae, [facility] Physician
--- NOTE | 2018-09-14 14:51 | PC.NURSE ---
Discharge PICC line flushed with NS and clamped. positive blood return on both lumens and easy flush. TPN to resume at home as previously ordered, EDITOR aware and order in place for home TPN. pt took all belongings with her. D/c instructions provided to pt and boyfriend. aware of f/u apt with MD and to contact MD with any additional questions or concerns. pt left in w/c with RN escort to private vehicle.
--- NOTE | 2018-09-14 15:54 | CM.DPNOTE ---
Spoke w/ Dr Mcgowan and pt in yesterday to review DCP. Dr Mcgowan wanted to DC pt Monday, resume TPN, no changes . Pt explains she doesn't think she needs Home Health and may not be home bound. No HH wound care needed. Updated Kiran at [facility] yesterday that pt would be DC today. Today, Dr Brower completed the DC order for pt to return home w/resumption of her TPN. This order was faxed to [facility], DC summary is still not available to fax. Updated Kiran at [facility] that pt was indeed going home today. P: Home today w/family, close outpt f/u and resumption of TPN. No HH needed. BRENDAN Verde
--- NOTE | 2018-09-15 09:15 | P.DS_ITS ---
History of Present Illness Date Patient Seen: 09/14/18 Time Patient Seen: 09:06 Chief complaint: abdominal cramps, vomiting for 24 hours Narrative: Carol is an unfortunate 53 year old lady with a history of recurrent small bowel obstruction. She has a profoundly hostile abdomen and has been seen both here and at the [facility] for profound adhesive disease. She has been on home TPN with G tube for decompression for several weeks after healing a fistula. On the day of admission, she presented to the ED with recurrent nausea, vomiting, and abdominal pain. Discharge Providers Date of admission: 09/08/18 02:29 Discharge Date: 09/14/18 Consults: 09/10/18 09:48 Consult to PICC Line RN Routine Comment: Discharge provider: Kary Mcgowan MD Summary Discharge Diagnosis: Recurrent small bowel obstruction Hospital Course: The patient was admitted and started on bowel rest and pain control. She began to improve almost immediately. By the time of discharge, she is eating a full liquid diet and has minimal nausea. She has continued to pass flatus and have small bowel movements. She is tolerating her po meds without difficulty. Her nausea is minimal. She will continue TPN at home as has been previously arranged. gave her a list of foods to try and she has been taking cream of wheat. She will continue to wean herself off of narcotics for pain control. She has a follow up appointment with Dr. Chris Status at Discharge Cognitive/behavioral status at discharge: oriented Functional status at discharge: independent ambulation Overall status at discharge: patient is progressing back to baseline Time Spent with Patient Less than 30 minutes Exam Vital Signs (past 8 hours): Oxygen Delivery Method Room Air Oxygen Flow Rate 0 Objective Labs Result Diagrams: 09/12/18 05:10 09/12/18 05:10 Discharge Plan Discharge Plan Patient Disposition: Home Discharge Med Rec/Prescriptions Prescriptions: New morphine 15 mg tablet 15 mg PO Q12H PRN (Reason: pain) Qty: 30 RF: 0 Continued meclizine 25 mg tablet 25 mg PO TID PRN (Reason: Dizziness) RF: 0 acetaminophen 325 mg tablet 325 mg PO Q6HR PRN (Reason: As Needed For Fever/Mild Pain) RF: 0 pantoprazole 40 mg tablet,delayed release (DR/EC) 40 mg PO DAILY Qty: 30 RF: 1 promethazine 25 mg tablet 25 mg PO Q6H PRN (Reason: nausea and vomiting) Qty: 10 RF: 0 lorazepam 1 mg tablet 1 mg PO Q4HR PRN (Reason: Anxiety) Qty: 30 RF: 1 ondansetron 4 mg Tablet,Disintegrating 4 mg Sublingual Q4HR PRN (Reason: Nausea) Qty: 30 RF: 0 citalopram 20 mg Tablet 20 mg PO DAILY Qty: 30 RF: 1 lisinopril 10 mg tablet 10 mg PO BEDTIME Qty: 30 RF: 0 diphenhydramine HCl [Allergy (diphenhydramine)] 25 mg Tablet 25 mg PO Q6HR PRN (Reason: Itching) Qty: 30 RF: 0 Discontinued morphine 15 mg tablet 15 mg PO Q4-6H PRN (Reason: pain) Qty: 40 RF: 0 metoclopramide HCl [Reglan] 10 mg tablet 10 mg PO Q6H Qty: 20 RF: 0 sennosides [Senokot] 8.6 mg tablet 8.6 mg PO BEDTIME Qty: 10 RF: 1 Follow up/Referrals: Kelechi Chris MD [Physician] - 09/21/18 2:15 pm Provider Discharge Instructions Diet: Full Liquid Activity: as tolerated Other treatments: continue TPN at pre admission levels and instructions Skin/Wound/Dressing Care Report to your healthcare provider any signs of infection, such as:: chills, fever, night sweats, increased pain, unusual drainage and unusual redness Visit Report/Discharge Packet Instructions: DI for Small Bowel Obstruction, Full Liquid Diet Discharge Data Attending Provider: Jarocho Cantu Admit Date/Time: 09/08/18 02:29 Discharges patient from system. Discharge Date/Time: 09/14/18 14:45 Quality VTE Deep Vein Thrombosis/Pulmonary Embolism Present on Admission: No
== END 2018-09-14 14:45 | disposition home or self-care (01) | DRG 247 ==
LOC: ED 01:55 → AC 02:29
PROVIDERS: Surgery; Admitting Provider Surgery; Emergency Provider Emergency Medicine; Visit Provider Surgery
DX: K56.600 Partial intestinal obstruction, unspecified as to cause (principal); M79.621 Pain in right upper arm; M79.89 Other specified soft tissue disorders; E66.9 Obesity, unspecified; Z68.36 Body mass index [BMI] 36.0-36.9, adult; I10 Essential (primary) hypertension; Z87.891 Personal history of nicotine dependence
CPT/HCPCS: 36415; 36573; 36591; 36592; 74018; 74019; 74022; 80048; 80053; 81003; 82962; 83605; 83690; 83735; 85025; 93971; 96361; 96374; 96375; 99283; 99284; B4189; C9113; J1170; J2060; J2405; J3480

== ENCOUNTER 2018-09-26 06:27 | Emergency (ER) | payer OTHER, MEDICAID, SELFPAY ==
[2018-09-08 03:09] VITALS: BMI 36.9
[2018-09-26 06:42] VITALS: BP 157/88; PULSE 117; RESP 18; TEMP 37.1; O2SAT 95; BMI 39.4
--- NOTE | 2018-09-26 07:08 | ED_ITS ---
HPI - Abdominal Pain General Chief Complaint: Abdominal Pain Stated Complaint: ABD PAIN X1 DAY Time Seen by Provider: 09/26/18 07:01 Source: patient and old records reviewed Mode of arrival: ambulatory Limitations: no limitations History of Present Illness HPI narrative: Patient is a 53-year-old female who has recurrent small-bowel obstructions on home TPN and G-tube at presenting with vomiting and pain. She has had this multiple times. She started having cramping yesterday and vomiting today.Her last admission was 09/08/2018 through 09/15/2018. For the same. She has been evaluated at [facility] not a surgical candidate at this time waiting until December. She denies any fever. MD complaint: abdominal pain Onset (ago): day(s) (1) Location: diffuse Severity: similar to previous episodes Radiation: none Migration to: no migration Relieving factors: nothing Exacerbating factors: nothing Related Data Home Medications Medication Instructions Recorded Confirmed acetaminophen 325 mg PO Q6HR PRN 09/06/18 09/26/18 meclizine 25 mg PO TID PRN 09/06/18 09/26/18 Previous Rx's Medication Instructions Recorded citalopram 20 mg PO DAILY #30 tab 09/13/18 lisinopril 10 mg PO BEDTIME #30 tab 09/13/18 lorazepam 1 mg PO Q4HR PRN #30 tab 09/13/18 morphine 15 mg PO Q12H PRN #30 tab 09/13/18 ondansetron 4 mg SUBLINGUAL Q4HR PRN #30 tab 09/13/18 pantoprazole 40 mg PO DAILY #30 tab 09/13/18 promethazine 25 mg PO Q6H PRN #10 tab 09/13/18 Allergies Allergy/AdvReac Type Severity Reaction Status Date / Time Penicillins Allergy Intermediate Hives Verified 09/08/18 00:12 ranitidine [From Zantac] Allergy Intermediate Hives Verified 09/08/18 00:12 Review of Systems Review of Systems GENERAL: Denies chills, fatigue, malaise, fever, sweats, travel HEENT: Denies sinus pain, ear pain, sore throat, difficulty swallowing, neck pain RESPIRATORY: Denies dyspnea, cough, wheezing, hemoptysis, sputum. CARDIOVASCULAR: Denies chest pain, palpitations, orthopnea, edema GASTROINTESTINAL: See HPI : Denies dysuria, frequency, incontinence, hematuria, urinary retention, flank pain. MUSCULOSKELETAL: Denies weakness, joint pain, or bony pain SKIN: No rash, no erythema, no pruritus NEUROLOGIC: Denies weakness, dizziness, headache, numbness, change in speech, confusion PSYCHIATRIC: No concerning psychosocial issues. 12 point review of systems is negative except for those stated above and HPI [facility] Medical History Anxiety disorder (Acute) Morbid obesity with BMI of 45.0-49.9, adult (Acute) Small bowel obstruction due to adhesions (Acute) HTN (hypertension) (Chronic) Migraine (Chronic) Postoperative ileus (Resolved) Surgical History Status post exploratory laparotomy (Acute) Status post appendectomy (Resolved) Status post hysterectomy (Resolved) Family History Mother Hypertension Diabetes mellitus Father Cancer Social History household members: significant other, family and children Smoking Status: Former smoker Family History Mother Hypertension Diabetes mellitus Father Cancer Social History household members: significant other, family and children Smoking Status: Former smoker Exam Initial Vital Signs Initial Vital Signs: Vital Signs Temperature 98.8 F 09/26/18 06:42 Pulse Rate 117 H 09/26/18 06:42 Respiratory Rate 18 09/26/18 06:42 Blood Pressure 157/88 H 09/26/18 06:42 Pulse Oximetry 95 09/26/18 06:42 GENERAL: Alert female appears in pain HEENT: Head atraumatic,EOMI, pupils reactive, face symmetric, CARDIOVASCULAR: Regular rate and rhythm without murmurs, rubs or gallops. RESPIRATORY: Breath sounds equal bilaterally, no wheezes rales or rhonchi. ABDOMEN: Increased bowel sounds, G-tube in place diffusely tender EXTREMITIES: Normal range of motion, no clubbing or edema. Neurovascularly intact NEUROLOGICAL: Alert and oriented x4.Normal gait and speech. Cranial nerves II through XII grossly intact. SKIN: Warm, dry, no laceration, no petechiae, no rashes or lesions. Course Orders Ordered: ED Orders 09/26/18 07:12 XR abdomen min 2V Stat 09/26/18 07:25 Complete Blood Count AUTO DIFF Stat Comprehensive Metabolic Panel Stat Lipase Stat Discontinued Medications Diphenhydramine HCl (Benadryl) 25 mg PO NOW ONE Stop: 09/26/18 10:42 Last Admin: 09/26/18 10:47 Dose: 25 mg Hydromorphone HCl (Dilaudid) 1 mg IV NOW ONE Stop: 09/26/18 07:12 Last Admin: 09/26/18 07:24 Dose: 1 mg Hydromorphone HCl (Dilaudid) 1 mg IV NOW ONE Stop: 09/26/18 08:50 Last Admin: 09/26/18 09:00 Dose: 1 mg Hydromorphone HCl (Dilaudid) 1 mg IV NOW ONE Stop: 09/26/18 09:44 Last Admin: 09/26/18 10:08 Dose: 1 mg Sodium Chloride (Normal Saline 0.9%) 1,000 mls @ 1,000 mls/hr IV CONT MUKUL Last Infusion: 09/26/18 08:21 Dose: 0 mls/hr Admin: 09/26/18 07:24 Dose: 1,000 mls/hr Ondansetron HCl (Zofran) 4 mg IV NOW ONE Stop: 09/26/18 07:26 Last Admin: 09/26/18 07:29 Dose: 4 mg Vital Signs - 8 hr 09/26/18 06:42 09/26/18 08:09 09/26/18 10:56 Temperature 98.8 F Pulse Rate 117 H 100 H 98 H Respiratory Rate 18 15 18 Blood Pressure 157/88 H 114/73 Blood Pressure [Right Wrist] 122/82 Pulse Oximetry 95 95 96 MDM - Abdominal Pain Lab Data Attestation: I reviewed the patient's lab results. Result diagrams: 09/26/18 07:25 09/26/18 07:25 Lab Results 09/26/18 09/26/18 Range/Units 07:25 07:25 WBC 12.9 H (4.5-11.0) X10^3/uL RBC 5.05 (4.0-5.2) X10^6/uL Hgb 13.8 (12.0-16.0) g/dL Hct 41.6 (36-46) % MCV 82.4 (80-100) fL MCH 27.3 (26-34) PG MCHC 33.2 (30-36) % RDW 17.1 H (11.6-14.8) % Plt Count 408 H (150-400) X10^3/uL Neut % (Auto) 75.4 H (50-75) % Lymph % (Auto) 14.7 L (25-40) % [place] % (Auto) 8.3 (3-14) % Eos % (Auto) 0.7 L (2-4) % Baso % (Auto) 0.9 (0-2) % Neut # (Auto) 9700 H (4221-8446) /uL Lymph # (Auto) 1900 (4817-6483) /uL [place] # (Auto) 1100 H (0-900) /uL Eos # (Auto) 100 (0-450) /uL Baso # (Auto) 100 (0-100) /uL Sodium 137 (137-145) mmol/L Potassium 4.7 (3.4-5.1) mmol/L Chloride 102 (98-107) mmol/L Carbon Dioxide 21 L (22-32) mmol/L BUN 37 H (7-17) mg/dL Creatinine 0.90 (0.52-1.04) mg/dL Estimated GFR > 60.0 (>60) mL/min BUN/Creatinine Ratio 41.1 H (6-22) Glucose 108 H (70-100) mg/dL Calcium 9.9 (8.4-10.2) mg/dL Total Bilirubin 0.2 (0.2-1.3) mg/dL AST 31 (14-36) IU/L ALT 40 (9-52) IU/L Alkaline Phosphatase 106 (38-126) U/L Total Protein 8.2 (6.3-8.2) g/dL Albumin 4.1 (3.5-5.0) g/dL Globulin 4.1 (1.7-4.1) g/dL Albumin/Globulin Ratio 1.0 (1.0-2.8) Lipase 146 (23-300) U/L Imaging Data Abdominal x-ray: Radiologist's impression: PROCEDURE: XR ABDOMEN MIN 2V INDICATIONS: recurrent small bowel obstructions TECHNIQUE: 2 views of the abdomen were acquired. COMPARISON: [facility], CR, XR ABDOMEN MIN 2V, 09/07/2018, 9:21. [facility], CR, XR ABDOMEN 3V, 08/17/2018, 5:44. FINDINGS: Surgical changes and devices: Feeding tube device overlies the midabdomen and upper abdomen, perhaps gastrostomy tube. Bowel: No pneumoperitoneum. The bowel gas pattern is abnormal, with multiple small air-fluid levels scattered across the mid abdomen small bowel area. Mild right- sided colonic obstipation is present.. Soft tissues: No masses; visualized solid organ contours appear normal in size. No suspicious abdominal calcifications. Bones: No suspicious bony abnormalities. IMPRESSION: Multiple small bowel air-fluid levels across the midabdomen, in this patient with a previous similar bowel gas pattern from plain film imaging earlier this year. No free air seen. Mild right-sided colonic obstipation. Presumed gastrostomy tube again noted across the abdomen.. Dictated by: Delroy Flores M.D. on 09/26/2018 at 8:36 MDM Narrative Medical decision making narrative: Patient overall is feeling better after Dilaudid but is requesting more. Able to tolerate ice chips. X-ray looks relatively the same. I spoke with her about admission versus going home at this time she would like to go home she has been through this process many times. She will return if needed. She has TPN pain medication and nausea medication at home. Discharge Plan Departure Patient Disposition: Home Clinical Impression: Small bowel obstruction Discharge Date/Time: 09/26/18 10:57 Interventions: ED Discharge Assessment Last Done: 09/26/18 10:56 Instructions: Small Bowel Obstruction Activity Restrictions/Additional Instructions: *You have been diagnosed with chronic small bowel obstruction *What to do: Pain control, increase fluids as tolerated *Continue to take medications as directed *Follow up with your primary care provider in 2-3 days *Return to ER if you should have persistent vomiting, inability keep down fluids, worsening pain or any new, worsening or concerning symptoms Prescriptions: No Action meclizine 25 mg tablet 25 mg PO TID PRN (Reason: Dizziness) RF: 0 acetaminophen 325 mg tablet 325 mg PO Q6HR PRN (Reason: As Needed For Fever/Mild Pain) RF: 0 pantoprazole 40 mg tablet,delayed release (DR/EC) 40 mg PO DAILY Qty: 30 RF: 1 promethazine 25 mg tablet 25 mg PO Q6H PRN (Reason: nausea and vomiting) Qty: 10 RF: 0 lorazepam 1 mg tablet 1 mg PO Q4HR PRN (Reason: Anxiety) Qty: 30 RF: 1 ondansetron 4 mg Tablet,Disintegrating 4 mg Sublingual Q4HR PRN (Reason: Nausea) Qty: 30 RF: 0 morphine 15 mg tablet 15 mg PO Q12H PRN (Reason: pain) Qty: 30 RF: 0 citalopram 20 mg Tablet 20 mg PO DAILY Qty: 30 RF: 1 lisinopril 10 mg tablet 10 mg PO BEDTIME Qty: 30 RF: 0 Referrals: [facility] [Provider Group]
--- NOTE | 2018-09-26 07:12 | DI.RAD.S_ITS ---
PROCEDURE: XR ABDOMEN MIN 2V INDICATIONS: recurrent small bowel obstructions TECHNIQUE: 2 views of the abdomen were acquired. COMPARISON: [facility], CR, XR ABDOMEN MIN 2V, 09/07/2018, 9:21. [facility], CR, XR ABDOMEN 3V, 08/17/2018, 5:44. FINDINGS: Surgical changes and devices: Feeding tube device overlies the midabdomen and upper abdomen, perhaps gastrostomy tube. Bowel: No pneumoperitoneum. The bowel gas pattern is abnormal, with multiple small air-fluid levels scattered across the mid abdomen small bowel area. Mild right-sided colonic obstipation is present.. Soft tissues: No masses; visualized solid organ contours appear normal in size. No suspicious abdominal calcifications. Bones: No suspicious bony abnormalities. IMPRESSION: Multiple small bowel air-fluid levels across the midabdomen, in this patient with a previous similar bowel gas pattern from plain film imaging earlier this year. No free air seen. Mild right-sided colonic obstipation. Presumed gastrostomy tube again noted across the abdomen.. Dictated by: Delroy Flores M.D. on 09/26/2018 at 8:36 Approved by: Delroy Flores M.D. on 09/26/2018 at 8:37
[2018-09-26] MEDS: SODIUM CHLORIDE 0.9% 1,000 ML 1000 ML IV (07:24)
[2018-09-26] MEDS: HYDROMORPHONE 1 MG INJ IV ×3 (07:24→10:08)
[2018-09-26] MEDS: ONDANSETRON 4 MG/2 ML INJ IV (07:29)
[2018-09-26 07:32] LABS: Add Manual Diff / Slide Review NO; Basophils Absolute Auto 100 /uL (0-100); Basophils Percent Auto 0.9 % (0-2); Eosinophils Absolute Auto 100 /uL (0-450); Eosinophils Percent Auto 0.7 % (2-4); Hematocrit 41.6 % (36-46); Hemoglobin 13.8 g/dL (12.0-16.0); Lymphocytes Absolute Auto 1900 /uL (1100-4500); Lymphocytes Percent Auto 14.7 % (25-40); Mean Corpuscular HGB Conc 33.2 % (30-36); Mean Corpuscular Hemoglobin 27.3 PG (26-34); Mean Corpuscular Volume 82.4 fL (80-100); Monocytes Absolute Auto 1100 /uL (0-900); Monocytes Percent Auto 8.3 % (3-14); Neutrophils Absolute Auto 9700 /uL (1500-7000); Neutrophils Percent Auto 75.4 % (50-75); Platelet Count 408 X10^3/uL (150-400); Red Blood Cell Count 5.05 X10^6/uL (4.0-5.2); Red Cell Distribution Width 17.1 % (11.6-14.8); White Blood Cell Count 12.9 X10^3/uL (4.5-11.0)
[2018-09-26 07:43] LABS: Alanine Aminotransferase 40 IU/L (9-52); Albumin 4.1 g/dL (3.5-5.0); Alkaline Phosphatase 106 U/L (38-126); Aspartate Aminotransferase 31 IU/L (14-36); BUN Creatinine Ratio 41.1 (6-22); Bilirubin Total 0.2 mg/dL (0.2-1.3); Blood Urea Nitrogen 37 mg/dL (7-17); Calcium 9.9 mg/dL (8.4-10.2); Carbon Dioxide 21 mmol/L (22-32); Chloride 102 mmol/L (98-107); Estimated Glomerular Filt Rate > 60.0 mL/min (>60); Globulin 4.1 g/dL (1.7-4.1); Glucose 108 mg/dL (70-100); HEMOLYSIS < 15 (0-50); Lipase 146 U/L (23-300); Potassium 4.7 mmol/L (3.4-5.1); Sodium 137 mmol/L (137-145); Total Protein 8.2 g/dL (6.3-8.2)
[2018-09-26 08:09] VITALS: BP 122/82; PULSE 100; RESP 15; O2SAT 95
[2018-09-26] MEDS: diphenhydrAMINE 25 MG TABLET PO (10:47)
[2018-09-26 10:56] VITALS: BP 114/73; PULSE 98; RESP 18; O2SAT 96
== END 2018-09-26 10:57 | disposition home or self-care (01) ==
PROVIDERS: Emergency Provider Emergency Medicine
CPT/HCPCS: 74019; 80053; 83690; 85025; J1170; J2405

== ENCOUNTER 2018-09-26 20:34 | Inpatient (IN) | payer OTHER, MEDICAID, SELFPAY ==
[2018-09-08 03:09] VITALS: BMI 36.9
[2018-09-26 20:52] VITALS: BP 135/92; PULSE 116; RESP 20; TEMP 36.3; O2SAT 96
--- NOTE | 2018-09-26 20:52 | ED_ITS ---
HPI - Abdominal Pain General Chief Complaint: Abdominal Pain Stated Complaint: SEVERE ABDOMINAL CRAMPS Time Seen by Provider: 09/26/18 20:48 Source: patient Mode of arrival: ambulatory Limitations: no limitations History of Present Illness HPI narrative: Patient is a 53-year-old female who was seen here in this doctors hospital department earlier today for abdominal cramping and nausea. Patient has a significant abdominal history in the past to include 2 prior surgeries for lysis of adhesions and then multiple admissions to the hospital since then for bowel obstructions. She has been evaluated by the [facility] and the patient states that they are not going to do surgery until she ?heals ?from her prior surgeries. She currently has a left upper extremity PICC line in place for TPN that she receives at night. She also has a G-tube in place to drain her gastric contents. None of these are new. She was seen here earlier today for similar symptoms that she has been seen in the past. Her last admission was at the beginning of this month for similar symptoms. She received multiple doses of pain medication earlier today and was sent home. She returns today stating that her pain is worsening. She states that she tried to drain her G-tube but only a small amount of material returned. Related Data Home Medications Medication Instructions Recorded Confirmed acetaminophen 325 mg PO Q6HR PRN 09/06/18 09/27/18 meclizine 25 mg PO TID PRN 09/06/18 09/27/18 Previous Rx's Medication Instructions Recorded citalopram 20 mg PO DAILY #30 tab 09/13/18 lisinopril 10 mg PO BEDTIME #30 tab 09/13/18 lorazepam 1 mg PO Q4HR PRN #30 tab 09/13/18 morphine 15 mg PO Q12H PRN #30 tab 09/13/18 ondansetron 4 mg SUBLINGUAL Q4HR PRN #30 tab 09/13/18 pantoprazole 40 mg PO DAILY #30 tab 09/13/18 promethazine 25 mg PO Q6H PRN #10 tab 09/13/18 Allergies Allergy/AdvReac Type Severity Reaction Status Date / Time Penicillins Allergy Intermediate Hives Verified 09/08/18 00:12 ranitidine [From Zantac] Allergy Intermediate Hives Verified 09/08/18 00:12 Review of Systems Constitutional Denies fever(s) and Denies headache(s) ENT Ears, Nose, Mouth, and Throat: Denies vertigo, Denies dizziness and Denies headache(s) Cardiovascular Denies chest pain, Denies syncope and Denies dyspnea Respiratory Denies dyspnea Gastrointestinal Gastrointestinal: Reports abdominal pain, Denies change in stool character, Reports nausea and Denies vomiting Musculoskeletal Denies myalgias and Denies arthralgias Integumentary/Breasts Denies rash Neurologic Denies vertigo, Denies dizziness, Denies syncope and Denies headache(s) Hematologic/Lymphatic Denies easy bleeding and Denies easy bruising [facility] Medical History Anxiety disorder (Acute) Morbid obesity with BMI of 45.0-49.9, adult (Acute) Small bowel obstruction due to adhesions (Acute) HTN (hypertension) (Chronic) Migraine (Chronic) Postoperative ileus (Resolved) Surgical History Status post exploratory laparotomy (Acute) Status post appendectomy (Resolved) Status post hysterectomy (Resolved) Family History Mother Hypertension Diabetes mellitus Father Cancer Social History household members: significant other, family and children Smoking Status: Former smoker Family History Mother Hypertension Diabetes mellitus Father Cancer Social History household members: significant other, family and children Smoking Status: Former smoker Exam Initial Vital Signs Initial Vital Signs: Vital Signs Temperature 97.4 F L 09/26/18 20:52 Pulse Rate 116 H 09/26/18 20:52 Respiratory Rate 20 09/26/18 20:52 Blood Pressure 135/92 H 09/26/18 20:52 Pulse Oximetry 96 09/26/18 20:52 Const General: cooperative, well developed, well groomed and No acute distress Orientation: alert, awake and oriented x3 HENMT Head: normal to inspection and normocephalic Resp Effort & Inspection: normal respiratory effort Auscultation: clear to auscultation bilaterally Cardio Rate: tachycardic Rhythm: regular rhythm GI Inspection: non-distended Palpation: soft and tender (Generalized tenderness) Skin Lesions: no lesions Rashes: no rashes Neuro General: alert, awake and oriented x3 Cognition: normal cognition Speech: speech normal Extrem General: normal to inspection and capillary refill normal Psych Appearance: grossly normal and well kempt Course Orders Ordered: ED Orders 09/26/18 22:26 CT abdomen pelvis w con Stat 09/26/18 23:11 Complete Blood Count AUTO DIFF Stat Comprehensive Metabolic Panel Stat Lactate (Lactic Acid) Stat Lipase Stat Hydromorphone HCl (Dilaudid) 1 mg IV Q4HR PRN PRN Reason: Pain, Mild (1-3) Sodium Chloride (Normal Saline 0.9%) 1,000 mls @ 125 mls/hr IV CONT MUKUL Last Admin: 09/27/18 01:32 Dose: 125 mls/hr Ondansetron HCl (Zofran) 4 mg IV Q4HR PRN PRN Reason: Nausea And Vomiting Discontinued Medications Hydromorphone HCl (Dilaudid) 1 mg IV NOW ONE Stop: 09/26/18 21:01 Last Admin: 09/26/18 21:08 Dose: 1 mg Hydromorphone HCl (Dilaudid) 1 mg IV NOW ONE Stop: 09/26/18 22:51 Last Admin: 09/26/18 23:02 Dose: 1 mg Hydromorphone HCl (Dilaudid) 1 mg IV NOW ONE Stop: 09/27/18 00:56 Last Admin: 09/27/18 01:00 Dose: 1 mg Sodium Chloride (Normal Saline 0.9%) 1,000 mls @ 1,000 mls/hr IV BOLUS ONE Stop: 09/26/18 22:05 Last Infusion: 09/26/18 22:06 Dose: 1,000 mls/hr Admin: 09/26/18 21:00 Dose: 1,000 mls/hr Ondansetron HCl (Zofran) 4 mg IV NOW ONE Stop: 09/26/18 21:01 Last Admin: 09/26/18 21:08 Dose: 4 mg Vital Signs - 8 hr 09/26/18 20:52 09/26/18 22:00 09/27/18 00:00 Temperature 97.4 F L Pulse Rate 116 H 100 H 102 H Respiratory Rate 20 16 15 Blood Pressure 135/92 H Blood Pressure [Right Arm] 144/50 H 146/52 H Pulse Oximetry 96 97 97 09/27/18 01:00 09/27/18 01:06 Temperature 99.1 F Pulse Rate 99 H 101 H Respiratory Rate 17 16 Blood Pressure 129/76 112/74 Blood Pressure [Right Arm] Pulse Oximetry 95 96 MDM - Abdominal Pain Lab Data Attestation: I reviewed the patient's lab results. Result diagrams: 09/26/18 23:11 09/26/18 23:11 Lab Results 09/26/18 09/26/18 09/26/18 Range/Units 22:43 23:11 23:11 WBC Cancelled RBC Cancelled Hgb Cancelled Hct Cancelled MCV Cancelled MCH Cancelled MCHC Cancelled RDW Cancelled Plt Count Cancelled Neut % (Auto) Cancelled Lymph % (Auto) Cancelled [place] % (Auto) Cancelled Eos % (Auto) Cancelled Baso % (Auto) Cancelled Neut # (Auto) Cancelled Lymph # (Auto) Cancelled [place] # (Auto) Cancelled Eos # (Auto) Cancelled Baso # (Auto) Cancelled Sodium 135 L (137-145) mmol/L Potassium 4.3 (3.4-5.1) mmol/L Chloride 101 (98-107) mmol/L Carbon Dioxide 24 (22-32) mmol/L BUN 31 H (7-17) mg/dL Creatinine 0.90 (0.52-1.04) mg/dL Estimated GFR > 60.0 (>60) mL/min BUN/Creatinine Ratio 34.4 H (6-22) Glucose 114 H (70-100) mg/dL Lactate 1.1 (0.7-2.1) mmol/L Calcium 9.0 (8.4-10.2) mg/dL Total Bilirubin 0.3 (0.2-1.3) mg/dL AST 24 (14-36) IU/L ALT 33 (9-52) IU/L Alkaline Phosphatase 92 (38-126) U/L Total Protein 7.1 (6.3-8.2) g/dL Albumin 3.5 (3.5-5.0) g/dL Globulin 3.6 (1.7-4.1) g/dL Albumin/Globulin Ratio 1.0 (1.0-2.8) Lipase 56 D (23-300) U/L 09/26/18 Range/Units 23:11 WBC 10.5 RBC 4.41 Hgb 11.8 L Hct 36.2 MCV 82.2 MCH 26.8 MCHC 32.7 RDW 17.0 H Plt Count 311 Neut % (Auto) 79.3 H Lymph % (Auto) 12.2 L [place] % (Auto) 7.6 Eos % (Auto) 0.4 L Baso % (Auto) 0.5 Neut # (Auto) 8300 H Lymph # (Auto) 1300 [place] # (Auto) 800 Eos # (Auto) 0 Baso # (Auto) 100 Sodium (137-145) mmol/L Potassium (3.4-5.1) mmol/L Chloride (98-107) mmol/L Carbon Dioxide (22-32) mmol/L BUN (7-17) mg/dL Creatinine (0.52-1.04) mg/dL Estimated GFR (>60) mL/min BUN/Creatinine Ratio (6-22) Glucose (70-100) mg/dL Lactate (0.7-2.1) mmol/L Calcium (8.4-10.2) mg/dL Total Bilirubin (0.2-1.3) mg/dL AST (14-36) IU/L ALT (9-52) IU/L Alkaline Phosphatase (38-126) U/L Total Protein (6.3-8.2) g/dL Albumin (3.5-5.0) g/dL Globulin (1.7-4.1) g/dL Albumin/Globulin Ratio (1.0-2.8) Lipase (23-300) U/L Imaging Data CT scan - abdomen: Radiologist's impression: High-grade partial small bowel obstruction with transition zone in the proximal ileum. Findings have worsened since prior films. MDM Narrative Medical decision making narrative: Patient with CT scan concerning for high- grade small bowel obstruction. Labs are relatively unremarkable. She received several doses of pain medication here in the emergency department without any improvement of her symptoms. I discussed the case with with General surgery who accepts the patient for admission. Holding orders were placed. Di scussed the admission with patient who expressed understanding and agreement. The patient declined an NG tube. Discharge Plan Departure Patient Disposition: Admitted As Inpatient Clinical Impression: Small bowel obstruction Interventions: ED Discharge Assessment Last Done: 09/27/18 01:00 Admit Date/Time: 09/27/18 00:02 Admit Provider: Suzan Lozoya
[2018-09-26] MEDS: SODIUM CHLORIDE 0.9% 1,000 ML 1000 ML IV (21:00)
[2018-09-26] MEDS: HYDROMORPHONE 1 MG INJ IV ×2 (21:08→23:02)
[2018-09-26] MEDS: ONDANSETRON 4 MG/2 ML INJ IV (21:08)
[2018-09-26 22:00] VITALS: BP 144/50; PULSE 100; RESP 16; O2SAT 97
--- NOTE | 2018-09-26 22:26 | DI.CT.S_ITS ---
PROCEDURE: CT ABDOMEN PELVIS W CON INDICATIONS: Generalized abdominal pain TECHNIQUE: After the administration of intravenous contrast, 5 mm thick sections acquired from the diaphragm to the symphysis. 5 mm coronal and sagittal reformats were acquired. For radiation dose reduction, the following was used: automated exposure control, adjustment of mA and/or kV according to patient size. COMPARISON: [facility], CT, CT ABDOMEN PELVIS W CON, 07/22/2018, 16:16. FINDINGS: Image quality: Excellent. ABDOMEN: Lung bases: Lung bases are clear. Heart size is normal. Solid organs: Liver is normal in size and enhancement. Gallbladder is normal. Biliary system is slightly dilated. Pancreas enhances normally. Spleen is normal in size and enhancement. Stable subcentimeter hypodensity in the caudal spleen. No adrenal nodules. Kidneys demonstrate normal size and enhancement, without hydronephrosis. Peritoneum and bowel: Gastrostomy tube present in the distal stomach. The proximal stomach is distended with fluid. There are multiple dilated small bowel loops containing air-fluid levels. Distal small bowel is decompressed and a transition point in the left abdomen is suspected. Normal to decreased amount of solid stool is present throughout the colon. No pneumatosis, free fluid, or free air. Nodes and vessels: No retroperitoneal or mesenteric adenopathy by size criteria. Aorta and inferior vena cava are normal in size. Miscellaneous: No ventral hernias. PELVIS: Genitourinary: Bladder wall thickness is normal. Uterus appears normal. Miscellaneous: No inguinal hernias or adenopathy. Bones: No suspicious bony lesions. No vertebral body compression fractures. IMPRESSION: 1. High-grade bowel obstruction with a probable left lower quadrant transition point. Degree of bowel dilatation is greater compared to the prior study, however there is less mesenteric edema and no free fluid present. Decompression via gastrostomy tube is recommended. 2. New, mild biliary dilatation. Correlate with LFTs to determine clinical significance. 3. Stable, nonspecific, subcentimeter splenic hypodensity. This is likely benign cyst, lymphangioma, or hemangioma. Concordant with preliminary report. Dictated by: Martha Jimenez M.D. on 09/27/2018 at 7:59 Approved by: Martha Jimenez M.D. on 09/27/2018 at 8:14
--- NOTE | 2018-09-26 22:30 | PC.NURSE ---
Medication reconciliation attempted pt stated did not have her medication list with her and will have it brought in.
[2018-09-26 23:28] LABS: Add Manual Diff / Slide Review NO; Basophils Absolute Auto 100 /uL (0-100); Basophils Percent Auto 0.5 % (0-2); Eosinophils Absolute Auto 0 /uL (0-450); Eosinophils Percent Auto 0.4 % (2-4); Hematocrit 36.2 % (36-46); Hemoglobin 11.8 g/dL (12.0-16.0); Lymphocytes Absolute Auto 1300 /uL (1100-4500); Lymphocytes Percent Auto 12.2 % (25-40); Mean Corpuscular HGB Conc 32.7 % (30-36); Mean Corpuscular Hemoglobin 26.8 PG (26-34); Mean Corpuscular Volume 82.2 fL (80-100); Monocytes Absolute Auto 800 /uL (0-900); Monocytes Percent Auto 7.6 % (3-14); Neutrophils Absolute Auto 8300 /uL (1500-7000); Neutrophils Percent Auto 79.3 % (50-75); Platelet Count 311 X10^3/uL (150-400); Red Blood Cell Count 4.41 X10^6/uL (4.0-5.2); White Blood Cell Count 10.5 X10^3/uL (4.5-11.0)
[2018-09-26 23:36] LABS: Lactate (Lactic Acid) 1.1 mmol/L (0.7-2.1)
[2018-09-26 23:39] LABS: Alanine Aminotransferase 33 IU/L (9-52); Albumin 3.5 g/dL (3.5-5.0); Alkaline Phosphatase 92 U/L (38-126); Aspartate Aminotransferase 24 IU/L (14-36); BUN Creatinine Ratio 34.4 (6-22); Bilirubin Total 0.3 mg/dL (0.2-1.3); Blood Urea Nitrogen 31 mg/dL (7-17); Carbon Dioxide 24 mmol/L (22-32); Chloride 101 mmol/L (98-107); Estimated Glomerular Filt Rate > 60.0 mL/min (>60); Globulin 3.6 g/dL (1.7-4.1); Glucose 114 mg/dL (70-100); HEMOLYSIS < 15 (0-50); Lipase 56 U/L (23-300); Potassium 4.3 mmol/L (3.4-5.1); Sodium 135 mmol/L (137-145); Total Protein 7.1 g/dL (6.3-8.2)
[2018-09-27] VITALS (8 sets, daily range): BP systolic 112–146; BP diastolic 52–82; PULSE 99–110; RESP 15–18; TEMP 36.8–38; O2SAT 93–97; BMI 40.0
[2018-09-27] MEDS: HYDROMORPHONE 0.5 MG INJ 1 MG IV (01:00)
[2018-09-27] MEDS: SODIUM CHLORIDE 0.9% 1,000 ML 125 ML IV ×3 (01:32→18:04)
--- NOTE | 2018-09-27 02:03 | PC.NURSE ---
Addendum entered and electronically signed by Qasim Zambrano R.N. 09/27/18 04:36: Dressing changed and cleaned w/ normal saline around G tube Original Note: Addendum entered and electronically signed by Qasim Zambrano R.N. 09/27/18 03:40: Dr. Lozoya phoned regarding ice chip order, ativan, and tylenol. Pt's pain is not controlled by 1mg dilaudid. did not want to increase pain med dosage. Verbal order taken for Q4 PRN Ativan 1mg and 650mg Tylenol Q4hrs. Original Note: Safe patient hand off at 0106. Pt. has abdominal pain 8/10 and complains of nausea. Pt is on NS 125ml/hr. Pt is alert and orientated. Pt has temp of 99.1 , P 101, R 16, BP 112/74. Dilaudid 1 mg Q4 hrs for pain
[2018-09-27] MEDS: ONDANSETRON 4 MG/2 ML INJ IV ×4 (02:17→15:04)
[2018-09-27] MEDS: HYDROMORPHONE 2 MG INJ 1 MG IV (02:17)
[2018-09-27] MEDS: LORazepam 2 MG/ML SYRINGE 1 MG IV ×2 (04:21→16:14)
[2018-09-27] MEDS: ACETAMINOPHEN 325 MG TABLET 650 MG PO (04:27)
[2018-09-27] MEDS: HYDROMORPHONE 1 MG INJ IV ×4 (06:42→20:07)
--- NOTE | 2018-09-27 09:47 | PM.HP.1 ---
History of Present Illness Date Patient Seen: 09/27/18 Time Patient Seen: 08:47 Chief complaint: SEVERE ABDOMINAL CRAMPS Narrative: 53yo F known to the practice but new to me. She has a complex surgical history starting with remote (>15yrs) appendectomy and partial hysterectomy. About 6mo ago, she developed an SBO and underwent an ex lap with ANA ROSA. She had more episodes and underwent surgery again in Jun for same. She had an ECF that apparently closed spontaneously. She has a venting G-tube in place and a PICC for TPN. She was seen at [facility] and cleared for some PO intake of 'approved foods' and she says this has been trial and error of what she tolerates. Sometimes her tube gets clogged and thus she is back in the ED every few weeks with cramping pain issues. She is on PO morphine and lorazepam at home and per previous notes has been on a plan to wean these but does not seem as though this has happened. All told, she has lost about 45lbs since onset of this course 6mo ago; this has leveled off. Imaging now and at other admissions suggests obstructive points in her bowels but these have resolved with non-surgical mgmt. She has been described by my colleagues as having a hostile abdomen which fits her history and limits our realistic options. Another surgery for her would be at best a last resort. She is non-toxic per labs and vitals as well as exam. Abd is soft, flat, no peritoneal signs. She says this AM she got a good amount of fluid out of her G-tube and also had a large BM and feels better. She does still c/o cramps. NGTs are apparently traumatic for her and she said she would not allow placement except with sedation. Patient History Medical History Anxiety disorder (Acute) Morbid obesity with BMI of 45.0-49.9, adult (Acute) Small bowel obstruction due to adhesions (Acute) HTN (hypertension) (Chronic) Migraine (Chronic) Postoperative ileus (Resolved) Surgical History Status post exploratory laparotomy (Acute) Status post appendectomy (Resolved) Status post hysterectomy (Resolved) Family History Mother Hypertension Diabetes mellitus Father Cancer Social History household members: significant other, family and children Smoking Status: Former smoker Family & Social History Family History Mother Hypertension Diabetes mellitus Father Cancer Social History: household members significant other,family,children Safety & Behavioral: Feels Safe in Current Yes Environment Been Physically Hurt or No Threatened By a Person Suicidal Ideation Description None Suicide Plan Description No Plan Tobacco & Substance use: Smoking Status Former smoker alcohol intake frequency holiday/special occasion Substance Use Type does not use Meds Home Medications Medication Instructions Recorded Confirmed Type acetaminophen 325 mg PO Q6HR PRN 09/06/18 09/27/18 History meclizine 25 mg PO TID PRN 09/06/18 09/27/18 History citalopram 20 mg PO DAILY #30 tab 09/13/18 09/27/18 Rx lisinopril 10 mg PO BEDTIME #30 tab 09/13/18 09/27/18 Rx lorazepam 1 mg PO Q4HR PRN #30 tab 09/13/18 09/27/18 Rx morphine 15 mg PO Q12H PRN #30 tab 09/13/18 09/27/18 Rx ondansetron 4 mg SUBLINGUAL Q4HR PRN #30 tab 09/13/18 09/27/18 Rx pantoprazole 40 mg PO DAILY #30 tab 09/13/18 09/27/18 Rx promethazine 25 mg PO Q6H PRN #10 tab 09/13/18 09/27/18 Rx Allergies Allergy/AdvReac Type Severity Reaction Status Date / Time Penicillins Allergy Intermediate Hives Verified 09/08/18 00:12 ranitidine [From Zantac] Allergy Intermediate Hives Verified 09/08/18 00:12 Review of Systems Constitutional Constitutional: Reports as per HPI Exam Vital Signs (past 8 hours): - 09/27/18 03:37 09/27/18 07:30 Temperature 99.0 F 98.3 F Pulse Rate 110 H 110 H Respiratory Rate 16 16 Blood Pressure 141/82 H 112/72 Pulse Oximetry 95 93 Oxygen Delivery Method Room Air Oxygen Flow Rate 0 Narrative Exam Narrative: AAO, NAD but covering eyes with hands and rolling in bed, morbidly obese female EOMI, MMM, no scleral icterus unlabored RA soft, nd, c/o diffuse ttp, no peritoneal signs, deep midline scar, G-tube clamped with clear greenish fluid in drain MAEW Objective Labs Result Diagrams: 09/26/18 23:11 09/26/18 23:11 Labs: Laboratory Results - last 24 hr 09/26/18 09/26/18 09/26/18 22:43 23:11 23:11 WBC Cancelled RBC Cancelled Hgb Cancelled Hct Cancelled MCV Cancelled MCH Cancelled MCHC Cancelled RDW Cancelled Plt Count Cancelled Neut % (Auto) Cancelled Lymph % (Auto) Cancelled [place] % (Auto) Cancelled Eos % (Auto) Cancelled Baso % (Auto) Cancelled Neut # (Auto) Cancelled Lymph # (Auto) Cancelled [place] # (Auto) Cancelled Eos # (Auto) Cancelled Baso # (Auto) Cancelled Sodium 135 L Potassium 4.3 Chloride 101 Carbon Dioxide 24 BUN 31 H Creatinine 0.90 Estimated GFR > 60.0 BUN/Creatinine Ratio 34.4 H Glucose 114 H Lactate 1.1 Calcium 9.0 Total Bilirubin 0.3 AST 24 ALT 33 Alkaline Phosphatase 92 Total Protein 7.1 Albumin 3.5 Globulin 3.6 Albumin/Globulin Ratio 1.0 Lipase 56 D 09/26/18 23:11 WBC 10.5 RBC 4.41 Hgb 11.8 L Hct 36.2 MCV 82.2 MCH 26.8 MCHC 32.7 RDW 17.0 H Plt Count 311 Neut % (Auto) 79.3 H Lymph % (Auto) 12.2 L [place] % (Auto) 7.6 Eos % (Auto) 0.4 L Baso % (Auto) 0.5 Neut # (Auto) 8300 H Lymph # (Auto) 1300 [place] # (Auto) 800 Eos # (Auto) 0 Baso # (Auto) 100 Sodium Potassium Chloride Carbon Dioxide BUN Creatinine Estimated GFR BUN/Creatinine Ratio Glucose Lactate Calcium Total Bilirubin AST ALT Alkaline Phosphatase Total Protein Albumin Globulin Albumin/Globulin Ratio Lipase Assessment & Plan Assessment & Plan narrative: - complex surgical history with hostile abd & h/o recurrent SBOs --> 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 Happily in these scenarios of frozen abdomens, obstructions generally resolve with more conservative measures Quality VTE Deep Vein Thrombosis/Pulmonary Embolism Present on Admission: No
[2018-09-27] MEDS: SODIUM CHLORIDE 0.9% FLUSH 10 ML IV (10:57)
[2018-09-27] MEDS: LYTES IV (18:03)
[2018-09-27] MEDS: SODIUM CHLORIDE 0.9% IV (18:03)
[2018-09-27] MEDS: CALCIUM IV (18:03)
[2018-09-27] MEDS: FAT EMULSIONS 50 GM/250 ML EMULSION IV (18:03)
[2018-09-27] MEDS: [UNRECOGNIZED DRUG - OTHER] IV (18:03)
[2018-09-27] MEDS: DEXT IV (18:03)
[2018-09-28] VITALS (7 sets, daily range): BP systolic 95–125; BP diastolic 60–67; PULSE 95–105; RESP 16–18; TEMP 36.8–38.2; O2SAT 96–97
[2018-09-28] MEDS: LORazepam 2 MG/ML SYRINGE 1 MG IV ×3 (00:04→17:19)
[2018-09-28] MEDS: ONDANSETRON 4 MG/2 ML INJ IV ×3 (00:07→10:11)
[2018-09-28] MEDS: HYDROMORPHONE 1 MG INJ IV ×5 (00:09→21:55)
[2018-09-28] MEDS: SODIUM CHLORIDE 0.9% 1,000 ML 125 ML IV ×3 (04:07→17:19)
[2018-09-28 05:34] LABS: Add Manual Diff / Slide Review NO; Basophils Absolute Auto 0 /uL (0-100); Basophils Percent Auto 0.4 % (0-2); Eosinophils Absolute Auto 0 /uL (0-450); Eosinophils Percent Auto 0.4 % (2-4); Hematocrit 30.9 % (36-46); Hemoglobin 10.2 g/dL (12.0-16.0); Lymphocytes Absolute Auto 1300 /uL (1100-4500); Lymphocytes Percent Auto 16.5 % (25-40); Mean Corpuscular HGB Conc 33.1 % (30-36); Mean Corpuscular Hemoglobin 27.2 PG (26-34); Mean Corpuscular Volume 82.3 fL (80-100); Monocytes Absolute Auto 1000 /uL (0-900); Monocytes Percent Auto 12.5 % (3-14); Neutrophils Absolute Auto 5700 /uL (1500-7000); Neutrophils Percent Auto 70.2 % (50-75); Platelet Count 242 X10^3/uL (150-400); Red Blood Cell Count 3.75 X10^6/uL (4.0-5.2); Red Cell Distribution Width 16.8 % (11.6-14.8); White Blood Cell Count 8.1 X10^3/uL (4.5-11.0)
[2018-09-28 05:46] LABS: BUN Creatinine Ratio 25.7 (6-22); Blood Urea Nitrogen 18 mg/dL (7-17); Calcium 8.1 mg/dL (8.4-10.2); Carbon Dioxide 25 mmol/L (22-32); Chloride 104 mmol/L (98-107); Estimated Glomerular Filt Rate > 60.0 mL/min (>60); Glucose 128 mg/dL (70-100); HEMOLYSIS < 15 (0-50); Sodium 135 mmol/L (137-145)
[2018-09-28] MEDS: ACETAMINOPHEN 325 MG TABLET 650 MG PO ×2 (07:44→21:50)
[2018-09-28] MEDS: SODIUM CHLORIDE 0.9% FLUSH 10 ML IV (07:46)
[2018-09-28] MEDS: ENOXAPARIN 40 MG/0.4 ML SYRINGE SUBCUT (07:46)
--- NOTE | 2018-09-28 09:30 | PM.PN.1 ---
Subjective Date Patient Seen: 09/28/18 Time Patient Seen: 09:30 Interval history: HPI: Pt with hostile abdomen known to service for two ex lap & LOAs with numerous subsequent partial SBOs. Here with same. Update: still some crampy pains overnight but overall improving, BMs ongoing and now loose, G tube to drainage and has a bilious component. Pt is having nausea and she vomited twice despite this drainage. Exam Vital Signs (past 8 hours): - 09/28/18 04:20 09/28/18 07:30 Temperature 98.3 F 100.7 F H Pulse Rate 100 H 105 H Respiratory Rate 18 16 Blood Pressure 101/64 122/67 Pulse Oximetry 96 96 Oxygen Delivery Method Room Air Oxygen Flow Rate 0 Narrative Exam Narrative: AAO, NAD, mobidly obese female EOMI, MMM, no scleral icterus unlabored RA soft, nd, minimal diffuse ttp but no peritoneal signs; G-tube in place with bilious and gastric drainage MAEW; PICC in place Objective Labs Result Diagrams: 09/28/18 05:08 09/28/18 05:08 Labs: Laboratory Results - last 24 hr 09/28/18 09/28/18 05:08 05:08 WBC 8.1 RBC 3.75 L Hgb 10.2 L Hct 30.9 L MCV 82.3 MCH 27.2 MCHC 33.1 RDW 16.8 H Plt Count 242 Neut % (Auto) 70.2 Lymph % (Auto) 16.5 L [place] % (Auto) 12.5 Eos % (Auto) 0.4 L Baso % (Auto) 0.4 Neut # (Auto) 5700 Lymph # (Auto) 1300 [place] # (Auto) 1000 H Eos # (Auto) 0 Baso # (Auto) 0 Sodium 135 L Potassium 4.0 Chloride 104 Carbon Dioxide 25 BUN 18 H Creatinine 0.70 Estimated GFR > 60.0 BUN/Creatinine Ratio 25.7 H Glucose 128 H Calcium 8.1 L Assessment & Plan Assessment & Plan narrative: - recurrent issue for pt with hostile abdomen --> continue conservative mgmt, drainage via G-tube for now but still vomited this AM so may need NGT but pt is reticent; pain, rather than a true obstruction, seems to be her main issue --> TPN home formula via PICC - OOB, ambulate - bowels moving, abd soft - labs and vitals unremarkable other than minimal temp elevation to 100.7 this AM- no signs of infection, will monitor Quality VTE Deep Vein Thrombosis/Pulmonary Embolism Present on Admission: No
[2018-09-28] MEDS: SODIUM CHLORIDE 0.9% IV (17:19)
[2018-09-28] MEDS: DEXT IV (17:19)
[2018-09-28] MEDS: [UNRECOGNIZED DRUG - OTHER] IV (17:19)
[2018-09-28] MEDS: CALCIUM IV (17:19)
[2018-09-28] MEDS: LYTES IV (17:19)
[2018-09-29] VITALS (13 sets, daily range): BP systolic 106–140; BP diastolic 58–90; PULSE 92–120; RESP 16–22; TEMP 36.8–39.3; O2SAT 95–98
[2018-09-29] MEDS: ONDANSETRON 4 MG/2 ML INJ IV ×3 (00:04→09:55)
[2018-09-29] MEDS: LORazepam 2 MG/ML SYRINGE 1 MG IV ×5 (01:14→21:33)
[2018-09-29] MEDS: SODIUM CHLORIDE 0.9% 1,000 ML 125 ML IV ×3 (01:17→17:27)
[2018-09-29] MEDS: HYDROMORPHONE 1 MG INJ IV (06:02)
[2018-09-29] MEDS: ACETAMINOPHEN 325 MG TABLET 650 MG PO ×4 (06:02→21:32)
[2018-09-29] MEDS: ENOXAPARIN 40 MG/0.4 ML SYRINGE SUBCUT (08:18)
[2018-09-29] MEDS: SODIUM CHLORIDE 0.9% FLUSH 10 ML IV (08:25)
--- NOTE | 2018-09-29 09:09 | CM.IDA ---
Initial DCP Assessment Note: Per the last Initial DCP Assessment done 09/09/18: Pt is a 53 yo female, resident of [place], admitted for abd cramping/SBO/pain. Payer: [place]/Medicaid. Pt familiar to this team from multiple admissions to after an initial abd surgery in April 2018. She is sustained at home by TPN, services provided through [facility]. No significant changes for Carol since last admission. Pt lives at home w/SO and children. She is sustained nutritionally by TPN via PICC. She awaits abdominal surgery at this summer. Carol continues to readmit w/symptoms of cramping, pain and often SBO. Prog notes indicate Carol's greatest barrier to DC back home this time is pain and cramping, no SBO indicated or confirmed at this time. Following closely for coordination of DCP to include resumption of [facility] for Carol's TPN via PICC. BRENDAN Verde Discharge Planning/Care Management CM Discharge Assessment Start: 09/29/18 09:01 Freq: Status: Active Protocol: Document 09/29/18 09:01 MARCO (Rec: 09/29/18 09:08 [id number]) Discharge Planning Assessment Assigned Relief Captain BRENDAN Sanchez DPOA/Assigned Designee Name Jarrell Serna STUART Contact Information [phone] Advance Directives? No Advance Directives on File No History Provided By Patient Medical Record Has Patient been admitted in last 30 Yes days? Comment Pt DC from 4.5. Prior Living Arrangements House Household Members significant other family children Independent with ADL's Yes Is patient alert and oriented? Yes Needs Assistance With Home Chores / Shopping Comment Patient Independent at baseline but since her admit in Apr 2018, after surgery and multiple hospital admissions for SBO/pain issues she has needed assist from family. Patient/Family Preference Home with Home Health Barriers to Discharge Yes Discharge Plan Home Transportation Arrangement Family Referrals Initiated Home Health Additional Comment Infusion services SNF/HH Preference [facility] for TPN
--- NOTE | 2018-09-29 10:47 | PM.PN.1 ---
Subjective Date Patient Seen: 09/29/18 Time Patient Seen: 10:50 Interval history: Still c/o crampy abd pain but bowels moving, some nausea but no more vomiting. Wants avinash da. Says she is walking some. Exam Vital Signs (past 8 hours): - 09/29/18 05:40 09/29/18 06:02 09/29/18 06:45 Temperature 102 F H 100.2 F H 100.5 F H Pulse Rate 120 H Respiratory Rate 22 Blood Pressure 140/75 Pulse Oximetry 98 09/29/18 08:10 Temperature 98.3 F Pulse Rate 96 H Respiratory Rate 18 Blood Pressure 110/65 Pulse Oximetry 96 Oxygen Delivery Method Room Air Oxygen Flow Rate 0 Narrative Exam Narrative: AAO, NAD, morbidly obese female; stays tucked under covers during interview EOMI, MMM unlabored RA soft, nt/nd, G-tube with gastric drainage MAEW Objective Labs Result Diagrams: 09/28/18 05:08 09/28/18 05:08 Assessment & Plan Assessment & Plan narrative: - to [facility], cont' home TPN - ambulate, OOB - SCDs, lovenox - stop dilaudid, to home PO morphine - prn anti-emtics Quality VTE Deep Vein Thrombosis/Pulmonary Embolism Present on Admission: No
[2018-09-29] MEDS: MORPHINE ER 15 MG TABLET PO ×2 (11:29→21:11)
[2018-09-29] MEDS: SODIUM CHLORIDE 0.9% IV (18:11)
[2018-09-29] MEDS: [UNRECOGNIZED DRUG - OTHER] IV (18:11)
[2018-09-29] MEDS: LYTES IV (18:11)
[2018-09-29] MEDS: DEXT IV (18:11)
[2018-09-29] MEDS: CALCIUM IV (18:11)
[2018-09-29] MEDS: FAT EMULSIONS 50 GM/250 ML EMULSION IV (18:12)
--- NOTE | 2018-09-29 21:50 | PC.NURSE ---
2145- Dr. Lozoya notified of elevated temp of 102.8. Order received for lab in AM. Patient medicated per order with tylenol po.
[2018-09-30] VITALS (19 sets, daily range): BP systolic 116–149; BP diastolic 63–84; PULSE 94–111; RESP 14–19; TEMP 36.9–39.4; O2SAT 94–97
--- NOTE | 2018-09-30 | DI.RAD.S_ITS ---
PROCEDURE: XR CHEST 1V INDICATIONS: fever TECHNIQUE: One view of the chest was acquired. COMPARISON: [facility], CR, XR CHEST FOR PICC 1V, 09/10/2018, 11:26. FINDINGS: Surgical changes and devices: PICC line in satisfactory position.. Lungs and pleura: Patchy right basilar atelectasis versus consolidation. No pleural effusions or pneumothorax. Mediastinum: Mediastinal contours appear normal. Heart size is normal. Bones and chest wall: No suspicious bony lesions. Overlying soft tissues appear unremarkable. IMPRESSION: Patchy right basilar atelectasis versus consolidation. Dictated by: Bassam Lorenz M.D. on 09/30/2018 at 8:47 Approved by: Bassam Lorenz M.D. on 09/30/2018 at 8:48
[2018-09-30] MEDS: SODIUM CHLORIDE 0.9% 1,000 ML 125 ML IV ×3 (01:26→16:40)
[2018-09-30] MEDS: ACETAMINOPHEN 325 MG TABLET 650 MG PO ×4 (01:49→23:57)
[2018-09-30] MEDS: LORazepam 2 MG/ML SYRINGE 1 MG IV ×5 (01:49→20:59)
[2018-09-30] MEDS: ONDANSETRON 4 MG/2 ML INJ IV ×3 (03:59→14:20)
[2018-09-30 05:53] LABS: Hematocrit 26.6 % (36-46); Hemoglobin 8.8 g/dL (12.0-16.0); Mean Corpuscular Hemoglobin 27.3 PG (26-34); Mean Corpuscular Volume 82.7 fL (80-100); Platelet Count 214 X10^3/uL (150-400); Red Blood Cell Count 3.21 X10^6/uL (4.0-5.2); Red Cell Distribution Width 16.5 % (11.6-14.8); White Blood Cell Count 8.5 X10^3/uL (4.5-11.0)
[2018-09-30 06:25] LABS: Neutrophils Absolute Manual 6715 /uL (3000-5900); Total Cells Counted 100
[2018-09-30 06:26] LABS: Anisocytosis 1+
[2018-09-30 08:54] LABS: Lactate (Lactic Acid) 1.1 mmol/L (0.7-2.1)
[2018-09-30 08:57] LABS: WBC Urine None Seen (0-5/HPF)
[2018-09-30] MEDS: ENOXAPARIN 40 MG/0.4 ML SYRINGE SUBCUT (09:18)
[2018-09-30] MEDS: SODIUM CHLORIDE 0.9% FLUSH 10 ML IV (09:18)
[2018-09-30 09:39] LABS: Procalcitonin < 0.05 ng/mL (<0.5)
--- NOTE | 2018-09-30 09:53 | CM.DPC ---
DCP Cont: Per MD and insurance defense attorney, pt continues to have fevers and and source of infection unknown even after multiple tests and scans. MD to round today to attempt to transfer pt to higher level of care for ongoing complex medical needs and continuously failing outpt measures. Plan: SW to follow closely to determine if pt can successfully be transferred for higher level of care and to keep [facility] and [facility] updated. BRENDAN Daniels
[2018-09-30] MEDS: HYDROMORPHONE 0.5 MG INJ IV ×4 (10:04→23:56)
[2018-09-30 10:12] LABS: Appearance Urine UA CLEAR; Bilirubin Urine UA NEGATIVE (NEGATIVE); Color Urine UA YELLOW; Glucose Urine UA NEGATIVE (Negative); Ketones Urine UA NEGATIVE (NEGATIVE); Leukocyte Esterase Urine UA NEGATIVE (NEGATIVE); Nitrite Urine UA NEGATIVE (Negative); Occult Blood Urine UA TRACE-LYSED (Negative); Protein Urine UA NEGATIVE (Negative); Urobilinogen Urine UA 0.2 E.U./dL (0.2); pH Urine UA 5.5 (4.5-8.0)
[2018-09-30 10:42] LABS: Bacteria Urine Few (2-10); Culture Indicated Urine Cult Not Indicated; RBC Urine 0-1/HPF (0-5/HPF); Squamous Epithelial Cell Urine 5-10 /HPF (0-5/HPF)
--- NOTE | 2018-09-30 12:49 | PM.PN.1 ---
Subjective Date Patient Seen: 09/30/18 Time Patient Seen: 09:25 Interval history: Febrile last evening and again this AM to 102s. Still c/o only abd pain and says she 'feels different' than usual. She is uncomfortable and has a cold compress on her forehead. Some nausea but no vomiting. Exam Vital Signs (past 8 hours): - 09/30/18 07:30 09/30/18 07:51 09/30/18 08:56 Temperature 102.8 F H 102.8 F H 100.3 F H Pulse Rate 110 H Respiratory Rate 18 Blood Pressure 139/84 Pulse Oximetry 94 09/30/18 09:09 09/30/18 10:22 09/30/18 11:24 Temperature 101.3 F H 98.4 F 98.8 F Pulse Rate 96 H Respiratory Rate 16 Blood Pressure 127/78 Pulse Oximetry 95 Oxygen Delivery Method Room Air Oxygen Flow Rate 0 Narrative Exam Narrative: AAO, uncomfortable but no distress, morbidly obese female EOMI, MMM unlabored RA abd soft, non-distended, minimal diffuse ttp with no peritoneal signs, G-tube with gastric contents MAEW, calves soft and equal, PICC line LUE clean with no erythema or swelling Objective Labs Result Diagrams: 09/30/18 05:23 09/28/18 05:08 Labs: Laboratory Results - last 24 hr 09/30/18 09/30/18 09/30/18 05:23 08:30 08:30 WBC 8.5 RBC 3.21 L Hgb 8.8 L Hct 26.6 L MCV 82.7 MCH 27.3 MCHC 33.0 RDW 16.5 H Plt Count 214 Total Counted 100 Seg Neutrophils % 78.0 H Band Neutrophils % 1.0 L Lymphocytes % (Manual) 16.0 L Monocytes % (Manual) 5.0 Neutrophils # (Manual) 6715 H RBC Morphology See below Anisocytosis 1+ H Lactate 1.1 Procalcitonin < 0.05 Urine Color Urine Appearance Urine pH Ur Specific [place] Urine Protein Urine Glucose (UA) Urine Ketones Urine Occult Blood Urine Nitrate Urine Bilirubin Urine Urobilinogen Ur Leukocyte Esterase Urine RBC Urine WBC Ur Squamous Epith Cells Urine Bacteria Ur Culture Indicated? 09/30/18 08:53 WBC RBC Hgb Hct MCV MCH MCHC RDW Plt Count Total Counted Seg Neutrophils % Band Neutrophils % Lymphocytes % (Manual) Monocytes % (Manual) Neutrophils # (Manual) RBC Morphology Anisocytosis Lactate Procalcitonin Urine Color Yellow Urine Appearance Clear Urine pH 5.5 Ur Specific [place] 1.010 Urine Protein Negative Urine Glucose (UA) Negative Urine Ketones Negative Urine Occult Blood Trace-lysed Urine Nitrate Negative Urine Bilirubin Negative Urine Urobilinogen 0.2 Ur Leukocyte Esterase Negative Urine RBC 0-1/hpf Urine WBC None seen Ur Squamous Epith Cells 5-10 /hpf H Urine Bacteria Few (2-10) H Ur Culture Indicated? Cult not indicated Assessment & Plan Assessment & Plan narrative: - concerning due to intermittent fevers --> no leukocytosis but does have a shift, lactate and procal normal, CXR unremarkable, UA neg, no apparent respiratory issues, skin exam clear, no evidence of DVT, abd exam unremarkable --> main concern in this patient is certainly ischemia or perforation but other than the fevers, no objective data support a worsening process nor does her exam- she is no more tender than previous days and is in no way showing peritoneal signs, has bowel sounds, bowels moving, no vomiting and G tube is draining, and has no distension --> blood cultures pending --> may rescan abdomen if continues - temp has come down intermittently and is currently normal - will monitor closely; discussed with pt and family present that surgery remains last resort and high risk, if needed we will transfer to [facility] where she has previously been seen for the necessary higher level of care. at this time, nothing indicates surgery or other interventions beyond Tylenol and cooling prn are needed. she is non-toxic and clinically stable. Quality VTE Deep Vein Thrombosis/Pulmonary Embolism Present on Admission: No
--- NOTE | 2018-09-30 14:23 | PM.EVENT ---
Date Patient Seen: 09/30/18 Time Patient Seen: 14:23 SURGERY PROGRESS NOTE Pt feels better, last few temps normal. All current labs unremarkable and not indicative of worsening process. Pt even ready to take a shower.
--- NOTE | 2018-09-30 16:48 | PC.NURSE ---
Addendum entered by Lorenza Stewart R.N. 09/30/18 21:04: Temp is now 98.9. Patient is sleeping comfortably in bed. Call light in reach. Original Note: Addendum entered by Lorenza Stewart R.N. 09/30/18 18:55: Temp is now 100.7. Call light in reach, will continue to recheck temps and monitor closely. Original Note: Addendum entered by Lorenza Stewart R.N. 09/30/18 18:20: Called Dr. Lozoya at 1800; continue to monitor and recheck temps Q1H and call if no changes despite interventions (tylenol, ice packs, cool shower, fan). Original Note: Temp is 100.7 temporal at 1550, rechecked at 1640, temp is 102.9 oral, gave 650 mg of tylenol PO, GT is clamped. Will recheck temp again at 1740, and unclamp GT. Will call physician if temp does not go down.
[2018-09-30] MEDS: [UNRECOGNIZED DRUG - OTHER] IV (17:48)
[2018-09-30] MEDS: SODIUM CHLORIDE 0.9% IV (17:48)
[2018-09-30] MEDS: DEXT IV (17:48)
[2018-09-30] MEDS: LYTES IV (17:48)
[2018-09-30] MEDS: CALCIUM IV (17:48)
[2018-09-30] MEDS: PROMETHAZINE 25 MG TABLET PO (17:57)
[2018-10-01] VITALS (18 sets, daily range): BP systolic 118–160; BP diastolic 63–95; PULSE 95–119; RESP 19–24; TEMP 37.1–39.6; O2SAT 93–99
[2018-10-01] MEDS: ONDANSETRON 4 MG/2 ML INJ IV ×2 (00:05→07:17)
[2018-10-01] MEDS: SODIUM CHLORIDE 0.9% 1,000 ML 125 ML IV ×3 (01:40→18:08)
[2018-10-01] MEDS: LORazepam 2 MG/ML SYRINGE 1 MG IV ×5 (02:16→22:07)
[2018-10-01 03:45] LABS: Acinetobacter baumannii Not Detected (Not Detect); Candida albicans Not Detected (Not Detect); Candida glabrata Not Detected (Not Detect); Candida krusei Not Detected (Not Detect); Candida parapsilosis Not Detected (Not Detect); Candida tropicalis Not Detected (Not Detect); E. coli Not Detected (Not Detect); Enterobacter cloacae complex Not Detected (Not Detect); Enterobacteriaceae species Not Detected (Not Detect); Enterococcus species Not Detected (Not Detect); Haemophilus influenzae Not Detected (Not Detect); Listeria monocytogenes Not Detected (Not Detect); Methicillin-resistant gene Not Detected (Not Detect); Neisseria meningitidis Not Detected (Not Detect); Proteus species Not Detected (Not Detect); Pseudomonas aeruginosa Not Detected (Not Detect); Serratia marcescens Not Detected (Not Detect); Staphylococcus species Detected (Not Detect); Streptococcus agalactiae (Gr B Not Detected (Not Detect); Streptococcus pneumonia Not Detected (Not Detect); Streptococcus pyogenes (Gr A) Not Detected (Not Detect); Streptococcus species Not Detected (Not Detect)
[2018-10-01] MEDS: VANCOMYCIN 1,500 MG in SODIUM CHLORIDE 0.9% 500 ML 333.333 ML IV ×2 (05:48→18:10)
[2018-10-01] MEDS: ACETAMINOPHEN 325 MG TABLET 650 MG PO ×4 (05:49→19:16)
[2018-10-01] MEDS: HYDROMORPHONE 0.5 MG INJ IV ×6 (05:49→21:38)
[2018-10-01 06:51] LABS: Add Manual Diff / Slide Review NO; Basophils Absolute Auto 0 /uL (0-100); Basophils Percent Auto 0.4 % (0-2); Eosinophils Absolute Auto 0 /uL (0-450); Eosinophils Percent Auto 0.1 % (2-4); Hematocrit 25.3 % (36-46); Hemoglobin 8.5 g/dL (12.0-16.0); Lymphocytes Absolute Auto 800 /uL (1100-4500); Lymphocytes Percent Auto 7.8 % (25-40); Mean Corpuscular HGB Conc 33.5 % (30-36); Mean Corpuscular Hemoglobin 27.4 PG (26-34); Mean Corpuscular Volume 81.8 fL (80-100); Monocytes Absolute Auto 700 /uL (0-900); Monocytes Percent Auto 6.7 % (3-14); Neutrophils Absolute Auto 9300 /uL (1500-7000); Platelet Count 236 X10^3/uL (150-400); Red Cell Distribution Width 16.4 % (11.6-14.8); White Blood Cell Count 10.9 X10^3/uL (4.5-11.0)
[2018-10-01 07:03] LABS: BUN Creatinine Ratio 12.9 (6-22); Blood Urea Nitrogen 9 mg/dL (7-17); Carbon Dioxide 25 mmol/L (22-32); Chloride 102 mmol/L (98-107); Estimated Glomerular Filt Rate > 60.0 mL/min (>60); Glucose 136 mg/dL (70-100); HEMOLYSIS < 15 (0-50); Potassium 3.7 mmol/L (3.4-5.1); Sodium 135 mmol/L (137-145)
[2018-10-01] MEDS: ENOXAPARIN 40 MG/0.4 ML SYRINGE SUBCUT (09:26)
--- NOTE | 2018-10-01 09:44 | PC.NURSE ---
Addendum entered by Jenny Bay R.N. 10/01/18 14:09: TEMP - given ice pack behind neck for temp, excess blankets removed, 's nurse Charity notified and also informed that per Rosenda, the PICC will be replaced later this afternoon. G tube clamped after admin 650mg tylenol with sips water. Original Note: Addendum entered by Jenny Bay R.N. 10/01/18 11:04: INTEG/PAIN/ - discussed excoriation around g tube with Kessa, treated with normal saline cleaning, skin prep with stoma powder applied in layers as barrier protection and then t drain over, pt has dark pink area around umbilicus and per call to Dr. Lozoya, she is aware, per pt req, given 0.5mg iv dilaudid for abd discomfort. Original Note: AM NOTE - at bedside shift report, pt reports nausea, skin is damp and temp 101, given iv zofran and ice pack to back neck, +bt noted, abd soft, g tube producing cloudy red/light brown fluid, pt later also up to bsc w/liq stool mixed with urine, when zofran did not provide relief, given 1mg iv ativan, later when able grace a few sips, clamped g tibe and given 650mg tylenol, some excoriation around the g tube insertion, skin prep applied, tpn rate reduced to 101 for last hour.
[2018-10-01] MEDS: SODIUM CHLORIDE 0.9% FLUSH 10 ML IV ×3 (10:50→19:15)
--- NOTE | 2018-10-01 10:56 | CM.DANOTE ---
DCP/Continued: Reviewed chart. Patient on services with both [facility] and [facility]. TECHNICAL WRITER asked PRINCESS/Alicia to fax updated clinicals to both agencies for review. At this time d/c date and time unknown. P: Anticipate home when medically stable with resumed services through [facility] and [facility]. BRENDAN Lan
--- NOTE | 2018-10-01 10:59 | PM.PN.1 ---
Subjective Date Patient Seen: 10/01/18 Time Patient Seen: 10:33 Interval history: Ongoing fevers, blood cultures last night showed staph aureus. Vanc started. Pt still feels bad today but primarily chills and abd pains. Bowels moving, no nausea, G tube draining. Exam Vital Signs (past 8 hours): - 10/01/18 05:00 10/01/18 05:34 10/01/18 05:49 Temperature 102.9 F H 102.9 F H 102.9 F H Pulse Rate 118 H Respiratory Rate 20 Blood Pressure 140/95 H Pulse Oximetry 98 10/01/18 08:00 Temperature 101 F H Pulse Rate 110 H Respiratory Rate 20 Blood Pressure 123/63 Pulse Oximetry 93 Oxygen Delivery Method Room Air Oxygen Flow Rate 0 Narrative Exam Narrative: AAO, NAD, morbidly obese female EOMI, MMM unlabored RA soft, nd, G tube with gastric drainage; mild excoriation of skin around G tube MAEW Objective Labs Result Diagrams: 10/01/18 06:25 10/01/18 06:25 Labs: Laboratory Results - last 24 hr 10/01/18 10/01/18 10/01/18 06:25 06:25 08:30 WBC 10.9 RBC 3.10 L Hgb 8.5 L Hct 25.3 L MCV 81.8 MCH 27.4 MCHC 33.5 RDW 16.4 H Plt Count 236 Neut % (Auto) 85.0 H Lymph % (Auto) 7.8 L [place] % (Auto) 6.7 Eos % (Auto) 0.1 L Baso % (Auto) 0.4 Neut # (Auto) 9300 H Lymph # (Auto) 800 L [place] # (Auto) 700 Eos # (Auto) 0 Baso # (Auto) 0 Sodium 135 L Potassium 3.7 Chloride 102 Carbon Dioxide 25 BUN 9 Creatinine 0.70 Estimated GFR > 60.0 BUN/Creatinine Ratio 12.9 Glucose 136 H Calcium 8.0 L A. baumannii (PCR) Not detected [place] albicans (PCR) Not detected C. glabrata (PCR) Not detected C. krusei (PCR) Not detected C. parapsilosis (PCR) Not detected C. tropicalis (PCR) Not detected Enterobacteriac sp PCR Not detected E. cloacae complex PCR Not detected Enterococcus sp PCR Not detected E. coli (PCR) Not detected H. influenzae (PCR) Not detected Klebsiella oxytoca PCR Not detected Klebsiella pneumoniae Not detected List. monocytogenes PCR Not detected N. meningitidis (PCR) Not detected Proteus species (PCR) Not detected Serratia marcescens PCR Not detected Staphylococcus sp PCR Detected H Staph aureus (PCR) Detected H mecA-Methicil Res Gene Not detected Streptococcus sp PCR Not detected Group A Strep (PCR) Not detected Strep agalactiae (PCR) Not detected Strep pneumoniae (PCR) Not detected P. aeruginosa (PCR) Not detected [place]/B-Vanco Res Genes Not Reportable KPC-Carbap Res Gene PCR Not Reportable Assessment & Plan Assessment & Plan narrative: - Vanc started for staph aureus bacteremia --> sensitivities pending --> new PICC ordered - cont' TPN - ambulate/ OOB as tolerating when feeling better - wound care attended to excoriated skin around G-tube - bowels moving Quality VTE Deep Vein Thrombosis/Pulmonary Embolism Present on Admission: No
--- NOTE | 2018-10-01 13:45 | PC.NURSE ---
Addendum entered by Karime Stoddard R.N. 10/01/18 14:10: Edit- 103.1 F Temp Original Note: Medicated Pt for pain and nausea per request. Rigors noted. Pt with elevated temp 1003.1 Notified primary RN Jenny.
--- NOTE | 2018-10-01 15:10 | DIET.PN ---
Pt known to me from previous admits. has very complex medical hx and been on home TPN since Jun. Per notes is able to take select foods per eval at , but this is very limited. DX: hostile abdomin HX: SBOs, adhesions TPN: 16 hour on and 8 hours off. Home TPN is 3:1 solution. Current order here: 1200ml Clinimix 5/20, plus lipids daily Clinimix is mixed w/saline (1800ml) and electrolyte solution for approx 3044ml total daily Wt: 98kg Wt hx: Usual wt approx 250# Wt loss: approx 40-45# 16% change, prior to TPN Wt in Jun: 96kg (when started TPN) Assessment: Severe acute, becoming moderate chronic pcm r/t inflammation of dz w/recent GI surgeries, hostile abdomin; Wt loss w/16% change in approx 6mo; now stable X 4 month w/TPN tx. Some improvement in nutritional status w/TPN suggested by wt stabilizing, but continues to have increased inflammation/critical illness. Intervention: None at this time
--- NOTE | 2018-10-01 15:43 | DI.RAD.S_ITS ---
PROCEDURE: XR CHEST FOR PICC 1V INDICATIONS: picc placement COMPARISON: [facility], CR, XR CHEST FOR PICC 1V, 09/10/2018, 11:26. FINDINGS: PICC was placed by the intravenous therapy team from the right side of left side. The right-sided PICC line tip projects over the proximal SVC. The left-sided PICC line tip projects over the mid SVC.. IMPRESSION: Right-sided PICC line tip projects over the proximal SVC and left-sided PICC line tip projects over the mid SVC. Dictated by: Janell Abdalla MD, PhD on 10/01/2018 at 16:49 Approved by: Janell Abdalla MD, PhD on 10/01/2018 at 16:50
[2018-10-01] MEDS: [UNRECOGNIZED DRUG - OTHER] IV (18:00)
[2018-10-01] MEDS: DEXT IV (18:00)
[2018-10-01] MEDS: CALCIUM IV (18:00)
[2018-10-01] MEDS: LYTES IV (18:00)
[2018-10-01] MEDS: SODIUM CHLORIDE 0.9% IV (18:00)
[2018-10-01] MEDS: levoFLOXacin 750 MG/150 ML PIGGYBACK 100 MG IV (20:56)
[2018-10-01] MEDS: IBUPROFEN 600 MG TABLET PO (21:24)
--- NOTE | 2018-10-01 21:48 | PC.NURSE ---
Evening notes: @ 1630 new DL PICC placed by inhouse DI nurse, to patient's RUE. IVF and TPN infusing to PICC with no difficulties tonight. Old PICC to LUE removed as ordered, tip of catheter cut off with sterile scissors & sent to lab for culture. Carol still running fevers tonight, when 1st assessed she was 99.1. Later 103.0, patient with observable chattering of teeth, at that time G-tube was clamped & patient medicated with 2 Tylenol. Retaken now at 102.7, clamped G-tube once more & gave Ibuprofen 600 mg (see note below). Intermittent nausea, no emesis. Carol reports pain worse that is has been (considering recent hospitalizations) and said it is just different--I never had these temps before either. Rates pain 7 or 8/10, said has occasional sharp pain to LLQ. Old surgical scar is intact but perimeter around this incision site is pinkish-red and warm. G-tube site is CDI with T-drain drsg present. I notified DR Cantu via phone call about patient's continued pain, high fevers and I also described the redness around old surgical scar. He ordered to add Levaquin to regimen, as well as Ibuprofen prn for fevers. No other orders given.
[2018-10-02] VITALS (10 sets, daily range): BP systolic 115–171; BP diastolic 66–97; PULSE 77–120; RESP 18–22; TEMP 36.1–38.8; O2SAT 93–99
[2018-10-02] MEDS: HYDROMORPHONE 0.5 MG INJ IV ×5 (03:58→19:35)
[2018-10-02] MEDS: VANCOMYCIN 1,500 MG in SODIUM CHLORIDE 0.9% 500 ML 333.333 ML IV ×2 (05:35→19:25)
[2018-10-02] MEDS: LORazepam 2 MG/ML SYRINGE 1 MG IV ×3 (05:35→15:52)
[2018-10-02] MEDS: ACETAMINOPHEN 325 MG TABLET 650 MG PO ×2 (05:43→15:51)
[2018-10-02] MEDS: PROMETHAZINE 25 MG TABLET PO ×2 (07:53→15:55)
[2018-10-02] MEDS: IBUPROFEN 600 MG TABLET PO ×2 (07:53→15:52)
[2018-10-02] MEDS: ENOXAPARIN 40 MG/0.4 ML SYRINGE SUBCUT (10:27)
[2018-10-02] MEDS: SODIUM CHLORIDE 0.9% FLUSH 10 ML IV ×3 (10:27→21:37)
--- NOTE | 2018-10-02 11:58 | PC.NURSE ---
Addendum entered by Jenny Bay R.N. 10/02/18 14:06: PAIN - dozing and afebrile this afternoon, standby assist up to bsc, void mixed with some small stool particles, changed gown, ret to bed, given 1mg ativan for ongoing nausea, states the earlier promethazine did provide effective relief, given 0.5mg iv dilaudid for ongoing abd discomfort, some slight mucous drainage around the g tube, cleaned and placed t drain sponge. Original Note: AM NOTE - pt is lying l side, diaphoretic, moaning, uncomfortable, shivering and states she is cold, does have a number of blankets over, hr 120 and temp 101.9, abd discomfort, nausea present, dark, green thin fluid from g tube into wallis bag, ra 96%, bs are clear, removed the blankets and replaced with warm but thinner layers, and placed ice pack behind neck, given ibuprofen and promethazine po and the g tube clamped for 45 minutes, given 0.5mg iv dilaudid and at recheck pt was calm, no longer shivering for cold.
--- NOTE | 2018-10-02 12:29 | PM.PN.1 ---
Subjective Date Patient Seen: 10/02/18 Time Patient Seen: 10:40 Interval history: Still uncomfortable, marina when fevers spike. José Miguel clears, G tube draining, bowels moving. PICC changed yesterday. Exam Vital Signs (past 8 hours): - 10/02/18 07:53 10/02/18 08:00 10/02/18 11:55 Temperature 101 F H 101.9 F H 97 F L Pulse Rate 120 H 85 Respiratory Rate 20 20 Blood Pressure 171/83 H 117/68 Pulse Oximetry 93 93 Oxygen Delivery Method Room Air Oxygen Flow Rate 0 Narrative Exam Narrative: AAO, NAD, obese female EOMI, MMM unlabored RA soft, nt/nd, G tube draining MAEW mildly diaphoretic Objective Labs Result Diagrams: 10/01/18 06:25 10/01/18 06:25 Labs: Laboratory Results - last 24 hr 10/01/18 08:30 A. baumannii (PCR) Not detected Marianna albicans (PCR) Not detected C. glabrata (PCR) Not detected C. krusei (PCR) Not detected C. parapsilosis (PCR) Not detected C. tropicalis (PCR) Not detected Enterobacteriac sp PCR Not detected E. cloacae complex PCR Not detected Enterococcus sp PCR Not detected E. coli (PCR) Not detected H. influenzae (PCR) Not detected Klebsiella oxytoca PCR Not detected Klebsiella pneumoniae Not detected List. monocytogenes PCR Not detected N. meningitidis (PCR) Not detected Proteus species (PCR) Not detected Serratia marcescens PCR Not detected Staphylococcus sp PCR Detected H Staph aureus (PCR) Detected H mecA-Methicil Res Gene Not detected Streptococcus sp PCR Not detected Group A Strep (PCR) Not detected Strep agalactiae (PCR) Not detected Strep pneumoniae (PCR) Not detected P. aeruginosa (PCR) Not detected Assessment & Plan Assessment & Plan narrative: - PICC changed out - cont' Vanc until sensitivities and until improvement - TPN, CLD as tolerating - OOB when able Quality VTE Deep Vein Thrombosis/Pulmonary Embolism Present on Admission: No
[2018-10-02] MEDS: SODIUM CHLORIDE 0.9% 1,000 ML 125 ML IV (13:29)
--- NOTE | 2018-10-02 16:25 | PC.NURSE ---
Addendum entered by Yi Lopez R.N. 10/02/18 18:42: Patient able to sleep for last 2 hours, awakes easily to voice, reports nausea almost gone and pain much better. Still reports mild headache pain and intermittent abdomen pain. No tremor, now afebrile, not diaphoretic, cheeks flushed, HR tachycardic, regular rhythm, 102 bpm while asleep. Respirations relaxed at 15/minute. Vanco trough drawn per protocol, from PICC line VENKATA. PICC is drawing bright red blood return and flushing with no difficulty. Cap changed. Blood sent to lab. TPN/Lipids now infusing to 2nd port. Maintenance IVF infusing to other port as ordered. Original Note: Patient upset, tears streaming down face, appears very anxious & distraught. Has severe whole body tremors enough that whole bed was shaking. Temp 99.1, she is asking for warm blankets, I explained I would remove one blanket already on her (has 3) and that I don't want to heat her up, that I believe she is trying to spike another fever. Hypertensive, HR tachy at 110 bpm. She rates abdomen pain 8/10, also reports headache pain that has not gone away for days. Reports nausea, feel like I might be sick. Talked about medications available to her. I clamped her G-tube, then gave her PO Tylenol, Ibuprofen & Promethazine as well as pain med & Ativan per her request. She said she is quite miserable and the only time I don't feel the pain is when I am sleeping. PICC to VENKATA is patent, drsg CDI, IVF infusing. New orders in chart for TPN/Lipids tonight. Oriented x 3. Will recheck temp soon & monitor closely.
[2018-10-02] MEDS: SODIUM CHLORIDE 0.9% IV (18:25)
[2018-10-02] MEDS: LYTES IV (18:25)
[2018-10-02] MEDS: [UNRECOGNIZED DRUG - OTHER] IV (18:25)
[2018-10-02] MEDS: CALCIUM IV (18:25)
[2018-10-02] MEDS: FAT EMULSIONS 50 GM/250 ML EMULSION IV (18:25)
[2018-10-02] MEDS: DEXT IV (18:25)
[2018-10-02] MEDS: VANCOMYCIN TROUGH 1 REQUEST MISC (18:25)
[2018-10-02 18:56] LABS: Vancomycin Trough 9.9 ug/mL (10-20)
[2018-10-02] MEDS: levoFLOXacin 750 MG/150 ML PIGGYBACK 100 MG IV (21:37)
[2018-10-03] VITALS (11 sets, daily range): BP systolic 131–176; BP diastolic 71–107; PULSE 93–115; RESP 18–24; TEMP 36.9–39.3; O2SAT 94–100
--- NOTE | 2018-10-03 | DI.CT.S_ITS ---
PROCEDURE: CT CHEST ABD PEL W CON INDICATIONS: persistent fevers, chronic illness TECHNIQUE: After the administration of oral and intravenous contrast, 5 mm thick sections acquired from the lung apices to the symphysis. 5 mm coronal and sagittal reformats were performed, with additional 7 mm coronal MIP reformats through the lungs. For radiation dose reduction, the following was used: automated exposure control, adjustment of mA and/or kV according to patient size. COMPARISON: [facility], CT, CT ABDOMEN PELVIS W CON, 09/26/2018, 22:50. FINDINGS: Image quality: Moderately reduced in quality by absence of significant intravenous contrast and also absence of significant oral contrast. Large body habitus appears to contribute to this circumstance. CHEST: Lungs and pleura: No acute airspace opacities but there is mild bibasilar atelectasis associated with very small bilateral pleural effusions which are not sufficient for thoracentesis. No pneumothorax. Central and peripheral airways appear patent and normal in caliber. Mediastinum: Heart size is normal. No pericardial effusion. No mediastinal or hilar adenopathy by size criteria. Thoracic aorta and central pulmonary arteries are normal in size. Esophagus is normal in caliber. No hiatal hernia. Chest wall: No axillary or supraclavicular adenopathy by size criteria. Thyroid gland is normal where well visualized. ABDOMEN: Solid organs: Liver is normal in size and enhancement. Gallbladder appears somewhat wall thickened, not present . Biliary system is non dilated. Pancreas enhances normally. Spleen is normal in size and enhancement. No adrenal nodules. Kidneys demonstrate normal size and enhancement, without hydronephrosis. Peritoneum and bowel: Bowel loops demonstrate normal wall thickness and caliber. No free fluid or air. Gastrostomy tube in place. Nodes and vessels: No retroperitoneal or mesenteric adenopathy by size criteria. Aorta and inferior vena cava are normal in size. Miscellaneous: No ventral hernias. Clustered bowel loops at the anterior abdomen/pelvis junction are relatively poorly visualized with delineation between a number of the bowel loops and the borders of the adjacent bowel and body wall structures limited in quality. In this area inflammation appears present and it is possible that several small contained bubbles of air are present at the anterior midline, seen on series 3 image 87. PELVIS: Genitourinary: Bladder wall thickness is normal. Miscellaneous: No inguinal hernias or adenopathy. The pattern of peritoneal inflammation extends from the abdomen/pelvis junction anteriorly more inferiorly into the pelvis, and differentiation between bowel loops and possible contained free fluid is difficult, seen at the left lower hemipelvis anteriorly where a a fluid collection seen on series 3 image 89 measures up to 1.9 x 6.9 cm. This may extend to be contiguous with the area of several small midline gas bubbles are (see series 3 image 88). Bones: No suspicious bony lesions. No vertebral body compression fractures. IMPRESSION: 1. Mild lung base atelectasis posteriorly adjacent to small bilateral pleural effusions which are insufficient for ultrasound-guided thoracentesis. 2. Gastrostomy tube in normal position. 3. Gallbladder wall appears now thickened when compared to the recent comparison study from 09/26/18. Gallbladder ultrasound may be warranted. 4. At the left lower abdomen/pelvis body wall margin within the peritoneal space there are several gas bubbles that may be within bowel loops or contained within an immediate adjacent peritoneal space measuring 1.9 cm x 6.9 cm, which are relatively poorly visualized due to a low degree of intravenous contrast enhancement and a low amounts of oral contrast that appears present in this particular area. Depending on the clinical status this area may be accessible for CT-guided aspiration. Dictated by: Delroy Flores M.D. on 10/03/2018 at 14:26 Approved by: Delroy Flores M.D. on 10/03/2018 at 14:39
[2018-10-03] MEDS: HYDROMORPHONE 0.5 MG INJ IV ×8 (00:17→23:50)
[2018-10-03] MEDS: IBUPROFEN 600 MG TABLET PO (00:17)
[2018-10-03] MEDS: PROMETHAZINE 25 MG TABLET PO ×3 (00:17→17:53)
[2018-10-03] MEDS: SODIUM CHLORIDE 0.9% 1,000 ML 125 ML IV ×3 (00:19→19:45)
[2018-10-03] MEDS: LORazepam 2 MG/ML SYRINGE 1 MG IV ×5 (01:30→20:47)
[2018-10-03] MEDS: VANCOMYCIN 1,500 MG in SODIUM CHLORIDE 0.9% 500 ML 333.333 ML IV (03:41)
[2018-10-03] MEDS: ACETAMINOPHEN 325 MG TABLET 650 MG PO ×4 (06:03→23:46)
[2018-10-03 06:05] LABS: Add Manual Diff / Slide Review NO; Basophils Absolute Auto 100 /uL (0-100); Basophils Percent Auto 0.8 % (0-2); Eosinophils Absolute Auto 100 /uL (0-450); Eosinophils Percent Auto 1.1 % (2-4); Lymphocytes Absolute Auto 900 /uL (1100-4500); Lymphocytes Percent Auto 10.5 % (25-40); Mean Corpuscular Hemoglobin 27.2 PG (26-34); Mean Corpuscular Volume 82.4 fL (80-100); Monocytes Absolute Auto 700 /uL (0-900); Monocytes Percent Auto 8.2 % (3-14); Neutrophils Absolute Auto 6900 /uL (1500-7000); Neutrophils Percent Auto 79.4 % (50-75); Platelet Count 242 X10^3/uL (150-400); Red Blood Cell Count 2.93 X10^6/uL (4.0-5.2); Red Cell Distribution Width 16.3 % (11.6-14.8); White Blood Cell Count 8.7 X10^3/uL (4.5-11.0)
[2018-10-03 06:16] LABS: Hematocrit 24.1 % (36-46)
[2018-10-03 06:19] LABS: BUN Creatinine Ratio 14.3 (6-22); Blood Urea Nitrogen 10 mg/dL (7-17); Calcium 8.1 mg/dL (8.4-10.2); Carbon Dioxide 25 mmol/L (22-32); Chloride 107 mmol/L (98-107); Estimated Glomerular Filt Rate > 60.0 mL/min (>60); Glucose 108 mg/dL (70-100); HEMOLYSIS < 15 (0-50); Sodium 139 mmol/L (137-145)
--- NOTE | 2018-10-03 09:38 | PM.PN.1 ---
Subjective Date Patient Seen: 10/03/18 Time Patient Seen: 09:38 Interval history: Still feeling some chills but only elevated temp in 24 hrs was 100.7 x1. Says her abd is cramping but thinks it is hunger pains and wants some cottage cheese. Exam Vital Signs (past 8 hours): - 10/03/18 06:39 10/03/18 07:30 Temperature 100.7 F H 99.7 F H Pulse Rate 114 H 101 H Respiratory Rate 24 18 Blood Pressure 176/107 H 131/71 Pulse Oximetry 95 94 Oxygen Delivery Method Room Air Oxygen Flow Rate 0 Narrative Exam Narrative: AAO, NAD EOMI, MMM unlabored RA abd soft, nt/nd, G tube with gastric drainage MAEW skin dry Objective Labs Result Diagrams: 10/03/18 05:42 10/03/18 05:42 Labs: Laboratory Results - last 24 hr 10/02/18 10/03/18 10/03/18 18:10 05:42 05:42 WBC 8.7 RBC 2.93 L Hgb 8.0 L Hct 24.1 L MCV 82.4 MCH 27.2 MCHC 33.0 RDW 16.3 H Plt Count 242 Neut % (Auto) 79.4 H Lymph % (Auto) 10.5 L [facility] % (Auto) 8.2 Eos % (Auto) 1.1 L Baso % (Auto) 0.8 Neut # (Auto) 6900 Lymph # (Auto) 900 L [facility] # (Auto) 700 Eos # (Auto) 100 Baso # (Auto) 100 Sodium 139 Potassium 4.0 Chloride 107 Carbon Dioxide 25 BUN 10 Creatinine 0.70 Estimated GFR > 60.0 BUN/Creatinine Ratio 14.3 Glucose 108 H Calcium 8.1 L Vancomycin Trough 9.9 L Assessment & Plan Assessment & Plan narrative: - cont' abx --> Vanc to stop today, keep single agent Levaquin fo rnow --> WBC normal with left shift present, Tmax 100.7 over last 24 hrs --> s/p new PICC - TPN home regimen --> adding FLD per pt request - OOB, walk today - prn metoprolol for intermittent HTN Quality VTE Deep Vein Thrombosis/Pulmonary Embolism Present on Admission: No
[2018-10-03] MEDS: SODIUM CHLORIDE 0.9% FLUSH 10 ML IV ×2 (10:44→10:45)
[2018-10-03] MEDS: ENOXAPARIN 40 MG/0.4 ML SYRINGE SUBCUT (10:45)
--- NOTE | 2018-10-03 11:08 | DIET.PN ---
Pt requesting more variety of foods. Per H&P, pt was consulted at and they were allowing some specific foods; trial and error; easy to eat type foods along with her TPN. Today pt requested cottage cheese w/fruit DX: hostile abdomin, chronic TPN Diet: full liquid Nutrition Support: TPN (16hr on/8hr off) per home TPN rxn Assessment: Blending some foods will still adhere to full liquid order as long as they are also low in fiber. This may be pleasing to this patient who is so limited. Intervention: Try blended cottage cheese and peaches at lunch. Plan: monitor tolerance.
--- NOTE | 2018-10-03 11:16 | PC.NURSE ---
1100 Pt c/o feeling chilled. oral Temp of 102.6. reported this to Dr Lozoya, gave Tylenol 650mg.
[2018-10-03] MEDS: VANCOMYCIN 1,500 MG in SODIUM CHLORIDE 0.9% 500 ML 333 ML IV ×2 (12:16→19:46)
[2018-10-03] MEDS: ONDANSETRON 4 MG/2 ML INJ IV (19:14)
[2018-10-03] MEDS: SODIUM CHLORIDE 0.9% IV (19:15)
[2018-10-03] MEDS: LYTES IV (19:15)
[2018-10-03] MEDS: DEXT IV (19:15)
[2018-10-03] MEDS: CALCIUM IV (19:15)
[2018-10-03] MEDS: [UNRECOGNIZED DRUG - OTHER] IV (19:15)
[2018-10-03] MEDS: levoFLOXacin 750 MG/150 ML PIGGYBACK 100 MG IV (20:37)
[2018-10-04] VITALS (20 sets, daily range): BP systolic 111–175; BP diastolic 41–97; PULSE 68–121; RESP 16–26; TEMP 36.5–39.4; O2SAT 93–97
--- NOTE | 2018-10-04 | DI.CT.S_ITS ---
PROCEDURE: CT ABDOMEN PELVIS WO CON INDICATIONS: intraabdominal fluid collection TECHNIQUE: After the administration of oral contrast, 5 mm thick sections acquired from the diaphragms to the symphysis. 5 mm coronal and sagittal reformats were performed. For radiation dose reduction, the following was used: automated exposure control, adjustment of mA and/or kV according to patient size. COMPARISON: None. FINDINGS: Image quality: Excellent. ABDOMEN: Lung bases: Small bilateral pleural effusions. Mild compressive atelectasis. Heart size is normal. Solid organs: Liver is normal in size. Gallbladder is decompressed with minimal thickening of the gallbladder wall, likely related to incomplete distention. Pancreas is normal in size. Spleen is normal in size. No adrenal nodules. Both kidneys are normal in size, without hydronephrosis or nephrolithiasis. Peritoneum and bowel: Gastrostomy tube is unchanged in position. Oral contrast is present to the level of the rectum without evidence for obstruction. Bowel loops demonstrate normal wall thickness and caliber. No free air. Recently described poorly delineated fluid collection noted in the anterior left abdomen, superficial to multiple loops of bowel and deep to the abdominal wall musculature is again visualized but demonstrates significant decrease in size. As before, its margins are difficult to delineate from the adjacent loops of traversing bowel. There is suggestion of high density material within this collection best seen on image 47, series 2. This may represent a small amount of ingested oral contrast. There are persistent scattered locules of gas within this collection which appears to extend along the anterior abdomen to the region of prior ventral incision. There is thickening of subcutaneous soft tissues with mild surrounding stranding. No other suspicious fluid collections identified. Nodes and vessels: No retroperitoneal or mesenteric adenopathy by size criteria. Aorta and inferior vena cava are normal in size. Miscellaneous: No ventral hernias. PELVIS: Genitourinary: Bladder wall thickness is normal. Miscellaneous: No inguinal hernias or adenopathy. Bones: No suspicious bony lesions. No vertebral body compression fractures. IMPRESSION: 1. Significant interval decrease in size of fluid collection identified over the left anterior abdomen which is visualized superficial to several loops of adjacent bowel and deep to the musculature of the anterior abdominal wall. There is again suggestion of contiguity with the region of soft tissue thickening at the level of previous skin incision. Additionally, there is a subtle, dense focus within a tiny segment of this collection which may represent oral contrast versus proteinaceous material. No drainable fluid collections identified on today's exam. 2. Mild persistent gallbladder wall thickening which appears less prominent than recent study. The gallbladder is also decompressed which may contribute to this finding. 3. Small bilateral pleural effusions. Findings are discussed with Dr. Lozoya at 1300 hrs. Dictated by: Negrito Hanna M.D. on 10/04/2018 at 12:39 Approved by: Negrito Hanna M.D. on 10/04/2018 at 13:04
[2018-10-04] MEDS: LORazepam 2 MG/ML SYRINGE 1 MG IV ×5 (00:55→17:54)
--- NOTE | 2018-10-04 03:23 | PC.NURSE ---
Pt had fever of 103. at 2330, gave APAP 650 mg po and removed some blankets and had patient ambulate. Has come down to 101.8. Will encourage walking.
--- NOTE | 2018-10-04 05:04 | PC.NURSE ---
ophelia has a few flakes of bowel in it
[2018-10-04] MEDS: CEFAZOLIN 2 GM/100 ML FROZ.PIGGY IV ×3 (05:16→21:10)
[2018-10-04 05:29] LABS: Add Manual Diff / Slide Review NO; Basophils Absolute Auto 100 /uL (0-100); Basophils Percent Auto 0.7 % (0-2); Eosinophils Absolute Auto 0 /uL (0-450); Eosinophils Percent Auto 0.5 % (2-4); Hematocrit 22.7 % (36-46); Hemoglobin 7.8 g/dL (12.0-16.0); Lymphocytes Absolute Auto 1000 /uL (1100-4500); Lymphocytes Percent Auto 12.1 % (25-40); Mean Corpuscular HGB Conc 34.4 % (30-36); Mean Corpuscular Volume 81.4 fL (80-100); Monocytes Absolute Auto 1100 /uL (0-900); Monocytes Percent Auto 13.1 % (3-14); Neutrophils Absolute Auto 6200 /uL (1500-7000); Neutrophils Percent Auto 73.6 % (50-75); Platelet Count 258 X10^3/uL (150-400); Red Blood Cell Count 2.79 X10^6/uL (4.0-5.2); Red Cell Distribution Width 16.4 % (11.6-14.8); White Blood Cell Count 8.5 X10^3/uL (4.5-11.0)
[2018-10-04] MEDS: HYDROMORPHONE 0.5 MG INJ IV ×6 (05:31→21:10)
[2018-10-04] MEDS: ACETAMINOPHEN 325 MG TABLET 650 MG PO ×2 (05:32→09:45)
[2018-10-04 05:33] LABS: INR 1.7 (0.9-1.3); Prothrombin Time 19.6 SECONDS (10.1-12.7)
[2018-10-04 05:37] LABS: Alanine Aminotransferase 28 IU/L (9-52); Albumin 2.7 g/dL (3.5-5.0); Albumin Globulin Ratio 0.9 (1.0-2.8); Alkaline Phosphatase 72 U/L (38-126); Aspartate Aminotransferase 16 IU/L (14-36); Bilirubin Total 0.2 mg/dL (0.2-1.3); Blood Urea Nitrogen 8 mg/dL (7-17); Calcium 8.1 mg/dL (8.4-10.2); Carbon Dioxide 24 mmol/L (22-32); Chloride 103 mmol/L (98-107); Estimated Glomerular Filt Rate > 60.0 mL/min (>60); Globulin 3.1 g/dL (1.7-4.1); Glucose 104 mg/dL (70-100); HEMOLYSIS < 15 (0-50); Potassium 3.8 mmol/L (3.4-5.1); Sodium 135 mmol/L (137-145); Total Protein 5.8 g/dL (6.3-8.2)
[2018-10-04] MEDS: SODIUM CHLORIDE 0.9% 1,000 ML 125 ML IV ×2 (05:40→16:11)
--- NOTE | 2018-10-04 05:57 | PC.NURSE ---
Advised Dr. Painting of patient's temps for noc shift. No new orders.
--- NOTE | 2018-10-04 08:11 | PC.NURSE ---
0805 Pt transfered to ICU ,via bed . Report to be given to JUNIOR Lyons.
--- NOTE | 2018-10-04 08:12 | PC.NURSE ---
0800 Pt noted to have scant amt pale/ yellowish/white fluid from proximal end of the closed incision. skin around this site is warmto touch, slightly redened. called and reported same to Dr Lozoya.
--- NOTE | 2018-10-04 08:45 | DI.ECHO.S_ITS ---
[facility]---------+ [facility] +---------+ : : [address] : : : : [id number] : : : : Phone: [phone]+ Echocardiogram Report + + :Name: JONATAN JOHNS Study Date: 10/04/2018 Height: 60 in : :[facility] Exam Location: [facility] Weight: 238 lb : : Gender: Female BSA: 2.0 m2 : :: 1965 Age: 53 yrs BP: 155/52 mmHg: :Reason For Study: PERSISTENT FEVERS : : Performed By: Pio Jaffe : :Referring: TANG BRYANT : + + Interpretation Summary 1) Normal left ventricular size, wall motion, and systolic function (EF 55- 60%). 2) Normal right ventricular size and function. 3) Diastolic parameters suggest a pseudonormalization pattern, consistent with probable elevated filling pressures. 4) No significant valvular abnormalities. 5) Hypertension present during the study (BP 155/52mmHg). 6) No prior Echo available for comparison. Procedure: A two-dimensional transthoracic echocardiogram with color flow and Doppler was performed. The study quality was technically adequate. There is no prior echocardiogram noted for this patient. The patient was in normal sinus rhythm during the exam. Left Ventricle: The left ventricle is normal in size. There is normal left ventricular wall thickness. The ejection fraction is estimated to be 55-60%. Left ventricular systolic function is normal. There are no focal wall motion abnormalities. Diastolic parameters suggest a pseudonormalization pattern, consistent with probable elevated filling pressures. Right Ventricle: The right ventricle is normal in size and function. Atria: The left atrium is severely dilated. Right atrial size is normal. The interatrial septum is intact with no evidence for an atrial septal defect. Mitral Valve: The mitral valve is normal in structure and function. There is trace mitral regurgitation. Aortic Valve: The aortic valve is trileaflet. The aortic valve is slightly calcified. The aortic valve opens well. There is no aortic valve stenosis. No aortic regurgitation is present. Tricuspid Valve: The tricuspid valve is normal in structure and function. There is a trace or physiologic amount of tricuspid regurgitation. Pulmonary artery pressures cannot be estimated because of the lack of a measurable TR jet velocity. Pulmonic Valve: The pulmonic valve is normal in structure and function. There is trace pulmonic regurgitation. Great Vessels: The aortic root is normal size. The dimensions of the ascending aorta are normal. The pulmonary artery is normal size. The IVC is of normal diameter and collapses greater than 50% with a sniff. This suggests a low right atrial pressure of 3 mm Hg. Pericardium/ Pleura There are no echocardiographic indications of cardiac tamponade. There is no pericardial effusion. There is no pleural effusion. MMode/2D Measurements & Calculations LVIDd: 5.3 cm LVOT diam: 2.0 cm LVIDs: 3.6 cm Ao root diam: 2.9 cm FS: 31.1 % Aortic Jxn: 2.3 cm EPSS: 0.62 cm asc Aorta Diam: 3.2 cm IVSd: 0.85 cm LVPWd: 0.77 cm LV vo. diameter/BSA (cm/m^2): 2.6 LV sys. diameter/BSA (cm/m^2): 1.8 LA dimension: 4.2 cm RA long axis: 5.5 cm LA A2 area: 25.7 cm2 RA area: 19.6 cm2 LA A4 area: 28.9 cm2 RA vol: 59.0 ml LA length (vol): 6.3 cm RA : 29.4 ml/m2 LA vol: 100.4 ml IVC diam: 2.5 cm LA vol index: 50.0 ml/m2 RVD1 (basal): 3.3 cm RVD2 (mid): 2.7 cm Doppler Measurements & Calculations Ao V2 max: 171.0 cm/sec LVOT Max Enrrique: 127.8 cm/sec Ao V2 mean: 124.9 cm/sec LV V1 max P.5 mmHg Ao max P.7 mmHg LV V1 VTI: 25.0 cm Ao mean P.8 mmHg ALYSSA(I,D): 2.4 cm2 Ao V2 VTI: 32.6 cm ALYSSA(V,D): 2.3 cm2 sev ratio: 0.77 ALYSSA indexed to BSA (cm^2/m^2): 1.2 MV E max enrrique: 120.8 cm/sec PA V2 max: 94.5 cm/sec MV A max enrrique: 64.5 cm/sec PA V2 mean: 74.3 cm/sec MV E/A: 1.9 PA mean P.4 mmHg Med Peak E' Enrrique: 7.4 cm/sec PA pr(Accel): 34.1 mmHg E/E' med: 16.3 PA Accel Time: 0.10 sec Lat Peak E' Enrrique: 9.8 cm/sec E/E' lat: 12.3 E/e' average: 14.3 MV dec time: 0.14 sec SV(LVOT): 77.2 ml Reading Physician:04:27 PM
[2018-10-04] MEDS: PHYTONADIONE (VIT K1) 5 MG in DEXTROSE 5 % IN WATER 50 ML 101 ML IV (08:56)
--- NOTE | 2018-10-04 12:18 | P.PN_ITS ---
Subjective Date Patient Seen: 10/04/18 Time Patient Seen: 07:30 Interval history: spiking temps again overnight. WBC normal. Still feels unwell. Exam Vital Signs (past 8 hours): - 10/04/18 05:23 10/04/18 05:31 10/04/18 05:32 Temperature 102.7 F H 102.7 F H 102.7 F H Pulse Rate Respiratory Rate Blood Pressure Pulse Oximetry 10/04/18 07:45 10/04/18 08:36 10/04/18 09:38 Temperature 99.4 F 100.5 F H Pulse Rate 88 96 H 83 Respiratory Rate 20 16 26 H Blood Pressure 136/76 141/77 H 131/73 Pulse Oximetry 93 94 95 10/04/18 11:00 10/04/18 11:50 Temperature 99.1 F 98.5 F Pulse Rate 81 75 Respiratory Rate 21 22 Blood Pressure 140/75 131/76 Pulse Oximetry 94 96 Oxygen Delivery Method Room Air Oxygen Flow Rate 0 Narrative Exam Narrative: AAO, NAD, diaphoretic EOMI, MMM unlabored RA soft, nt/nd; G tube with gastric contents MAEW Objective Labs Result Diagrams: 10/04/18 05:12 10/04/18 05:12 Labs: Laboratory Results - last 24 hr 10/04/18 10/04/18 10/04/18 05:12 05:12 05:12 WBC 8.5 RBC 2.79 L Hgb 7.8 L Hct 22.7 L MCV 81.4 MCH 28.0 MCHC 34.4 RDW 16.4 H Plt Count 258 Neut % (Auto) 73.6 Lymph % (Auto) 12.1 L [place] % (Auto) 13.1 Eos % (Auto) 0.5 L Baso % (Auto) 0.7 Neut # (Auto) 6200 Lymph # (Auto) 1000 L [place] # (Auto) 1100 H Eos # (Auto) 0 Baso # (Auto) 100 PT 19.6 H INR 1.7 H Sodium 135 L Potassium 3.8 Chloride 103 Carbon Dioxide 24 BUN 8 Creatinine 0.80 Estimated GFR > 60.0 BUN/Creatinine Ratio 10.0 Glucose 104 H Calcium 8.1 L Total Bilirubin 0.2 AST 16 ALT 28 Alkaline Phosphatase 72 Total Protein 5.8 L Albumin 2.7 L Globulin 3.1 Albumin/Globulin Ratio 0.9 L Assessment & Plan Assessment & Plan narrative: - transfer to ICU for closer care - CT yesterday showed new abd fluid collection --> INR elevated to vit K ordered for possible aspiration --> discussed with radiology and concern for new or recurrent ECF is present so will re-scan with oral contrast - NPO for now, cont' TPN - cont' abx, changed per pharmacy recs today Quality VTE Deep Vein Thrombosis/Pulmonary Embolism Present on Admission: No
[2018-10-04] MEDS: SODIUM CHLORIDE 0.9% FLUSH 10 ML IV (14:00)
--- NOTE | 2018-10-04 14:41 | PC.NURSE ---
Pt rec'd from acute care to ICU rm [id number]. AO x3 with stable VS. T 100.5. Pt is diaphoretic and c/o ripping abd pain to bilat lower quadrants 7/10, requesting dilaudid. Administered with fair effect. Pt rates pain 5/10 post administration. Orders reviewed and noted NPO status with CT with oral contrast ordered. Called to Dr. Lozoya and clarified orders. Reported sm opening to prior surgical scar distal umbilicus draining purulent matter as well. Clamped g tube and adminstered oral contrast PO. Pt able to tolerate 1000 ML of contrast and was escorted to CT by RN and returned with g tube to gravity. Tolerated well. Per DI tech, radiologist states he will not take her back for aspiration of fluid collection as it has decreased since previous CT. Radiologist reported to Dr. Lozoya. Called Dr. Lozoya at 1440 and requested clarification for lovenox. She instructs to administer AM dose now. Reported continued drainage of abd wound including assessment of color. TORB to obtain fluid spec and send to lab for culture.
[2018-10-04] MEDS: ENOXAPARIN 40 MG/0.4 ML SYRINGE SUBCUT (14:52)
[2018-10-04] MEDS: FAT EMULSIONS 50 GM/250 ML EMULSION IV (17:47)
[2018-10-04] MEDS: CALCIUM IV (17:48)
[2018-10-04] MEDS: LYTES IV (17:48)
[2018-10-04] MEDS: [UNRECOGNIZED DRUG - OTHER] IV (17:48)
[2018-10-04] MEDS: DEXT IV (17:48)
[2018-10-04] MEDS: SODIUM CHLORIDE 0.9% IV (17:48)
--- NOTE | 2018-10-04 18:43 | PC.NURSE ---
Addendum entered by Misa Davis R.N. 10/04/18 22:22: 2100 - Pt up to [place]. Drsg to fistula site on mid-line incision leaking brown/yellow drainage. Drsg changed. Gastronomy tube emptied for 450cc. Pt tearful. States that she does not wish to have visitor except for her boyfriend, reassurance provided. Pt requesting dilaudid and ativan. Reinforced dose times. Comfort measures provided. Declines SCD's at this time. Call light in reach. Original Note: 1700 - Tabler into see pt. Drsg changed to mid-line incision area. Draining, yellow-brown, fecal-like material. Area with continuous drainage during care. Open area in skin fold along abd incision, discuss possible ostomy wafer and pouch to abd area to contain drainage during healing. Area may need build up of surrounding skin with stoma paste. Wound consult ordered. Foam drsg placed. Monitor. [place] [facility] [place] Void as well as liquid stool. Pt denies nausea, requesting PO intake. okay clear liquids, however encouraged slow intake. Pt requesting rx for pain and ativan. Reviewed dose times. Reinforced safety and call light use. Call light in reach.
[2018-10-05] VITALS (7 sets, daily range): BP systolic 151–189; BP diastolic 82–99; PULSE 72–86; RESP 13–22; TEMP 36.6–37.2; O2SAT 94–98
[2018-10-05] MEDS: SODIUM CHLORIDE 0.9% 1,000 ML 125 ML IV (00:05)
[2018-10-05] MEDS: HYDROMORPHONE 0.5 MG INJ IV ×9 (00:08→23:59)
[2018-10-05] MEDS: ACETAMINOPHEN 325 MG TABLET 650 MG PO ×2 (03:19→09:08)
[2018-10-05] MEDS: LORazepam 2 MG/ML SYRINGE 1 MG IV ×4 (05:02→21:12)
[2018-10-05 05:15] LABS: Add Manual Diff / Slide Review NO; Basophils Absolute Auto 0 /uL (0-100); Basophils Percent Auto 0.6 % (0-2); Eosinophils Absolute Auto 100 /uL (0-450); Eosinophils Percent Auto 2.6 % (2-4); Hemoglobin 7.1 g/dL (12.0-16.0); Lymphocytes Absolute Auto 900 /uL (1100-4500); Lymphocytes Percent Auto 19.2 % (25-40); Mean Corpuscular HGB Conc 33.8 % (30-36); Mean Corpuscular Hemoglobin 27.7 PG (26-34); Mean Corpuscular Volume 81.9 fL (80-100); Monocytes Absolute Auto 500 /uL (0-900); Monocytes Percent Auto 10.4 % (3-14); Neutrophils Absolute Auto 3300 /uL (1500-7000); Neutrophils Percent Auto 67.2 % (50-75); Platelet Count 265 X10^3/uL (150-400); Red Blood Cell Count 2.56 X10^6/uL (4.0-5.2); Red Cell Distribution Width 16.5 % (11.6-14.8); White Blood Cell Count 4.9 X10^3/uL (4.5-11.0)
[2018-10-05] MEDS: CEFAZOLIN 2 GM/100 ML FROZ.PIGGY IV ×3 (06:02→21:02)
--- NOTE | 2018-10-05 06:18 | PC.NURSE ---
NOC shift note: Pt rested and slept quietly a majority of the night. A/Ox4. Receiving TPN and NS per orders. Up to BSC with 1PA to void, 1200mls total. G-Tube drained 850mls of light brown liquid. Dressing changed to fistula on proximal portion of abd with skin protectant, foam, and coversite. Old dressing showed moderate amount of yellow/green drainage. NSR on tele. H/H continues to trend down now 7.07/02, will pass on to day shift for MD notification. Remained afebrile although did receive tylenol 650mg PRN for headache. Received Dilaudid and Ativan IV PRN pain and anxiety both with adequate stated relief. VSS.
[2018-10-05] MEDS: METOPROLOL IR 25 MG TABLET PO (06:33)
--- NOTE | 2018-10-05 08:24 | P.PN_ITS ---
Subjective Date Patient Seen: 10/05/18 Time Patient Seen: 08:22 Interval history: Afebrile overnight, c/o uncontrolled pain staying around 5-6. Output from abd midline seems to have lessened. Exam Vital Signs (past 8 hours): - 10/05/18 03:56 10/05/18 07:28 Temperature 99.0 F 98 F Pulse Rate 78 73 Respiratory Rate 18 13 Blood Pressure 161/93 H 154/96 H Pulse Oximetry 98 94 Oxygen Delivery Method Room Air Oxygen Flow Rate 0 Narrative Exam Narrative: AAO, NAD, morbidly obese EOMI, MMM unlabored RA soft, nd, ttp around midline with draining opening; G-tube with gastric contents MAEW skin dry Objective Labs Result Diagrams: 10/05/18 04:55 10/04/18 05:12 Labs: Laboratory Results - last 24 hr 10/04/18 10/05/18 08:25 04:55 WBC 4.9 RBC 2.56 L Hgb 7.1 L Hct 21.0 L MCV 81.9 MCH 27.7 MCHC 33.8 RDW 16.5 H Plt Count 265 Neut % (Auto) 67.2 Lymph % (Auto) 19.2 L [place] % (Auto) 10.4 Eos % (Auto) 2.6 Baso % (Auto) 0.6 Neut # (Auto) 3300 Lymph # (Auto) 900 L [place] # (Auto) 500 Eos # (Auto) 100 Baso # (Auto) 0 Nasal Screen MRSA (PCR) Negative for mrsa Assessment & Plan Assessment & Plan narrative: - afebrile overnight, vitals otherwise normal with occasional hypertension --> Hg drop likely hemodilutional, has had high IVFs due to poor to no enteral intake and high fevers, no hypotension and only tachycardic with fevers; also may have component of chronic disease - ok for CLD, drop MIVFs to 75 for now, cont' TPN for nutrition given inability to maintain nutrition via enteral route - air quality manager to see today to place ostomy appliance to presumed midline fistula, likely a re-opening of prior --> contents appeared enteral last night, scant brownish serosanginous look on dressings today --> bag will control leakage to skin, allow for quantification, and let pt get more mobile - abx changed yesterday, cont' for now - restart home PO morphine for better pain control - SCDs, lovenox - per pt's request, spoke with the surgeon she saw at , no current change in their long-term mgmt plans or need to transfer Quality VTE Deep Vein Thrombosis/Pulmonary Embolism Present on Admission: No
[2018-10-05] MEDS: MORPHINE ER 15 MG TABLET PO ×3 (08:42→21:02)
[2018-10-05] MEDS: ENOXAPARIN 40 MG/0.4 ML SYRINGE SUBCUT (08:43)
[2018-10-05] MEDS: SODIUM CHLORIDE 0.9% 1,000 ML 75 ML IV ×2 (08:43→21:02)
[2018-10-05] MEDS: SODIUM CHLORIDE 0.9% FLUSH 10 ML IV ×2 (08:43→12:00)
--- NOTE | 2018-10-05 12:09 | PC.NURSE ---
Addendum entered by Mary Winchester R.N. 10/05/18 12:59: pt verbalized having lack of control. pt crying. states was on anti depressant at home and it did help her. Original Note: Amanda RN here to check abd skin; fistula wafer and bag applied. pt in tears stating skin pain 8 out of 10.
--- NOTE | 2018-10-05 13:07 | PC.NURSE ---
Wound Ostomy Nurse Note Asked to see Carol for fistula management. I met Carol several months ago after her abdominal surgery for fistula management. Carol remembers me. She is lying in bed. She states that she has a pulling sensation in her abdomen and it is very painful to touch. Her abdomen is warm to touch and red. Zoie RN her nurse and I marked with a black pen the outline of the redness. Carol is crying and upset about her fistula. Zoie gave her some IV pain medication pre-dressing change. The fistula measures 0.6x 0.5x 1.0 there is a small amount of serosanguenous drainage on the dressing. Carol did say it was draining more with ambulation. I took pictures in progression on how I did the fistula pouching, please see chart. I fill her crease and her belly button with three pieces of one Will ring to make the crease more skin level. Then I covered the Will's with a hydrocolloid and another hydrocolloid on the right side of the fistula and below the fistula. Then cut a bigger hole on the wound/fistula pouch wafer and placed the wound/fistula pouch. I had to apply pressure to make sure that everything adheres to the skin and the hydrocolloid. I showed and explained this Carol and she verbalized understanding. Carol will be able to shower with this system in place. I will return later to the unit with some more Will rings and a clip to use for sealing the pouch. I will also return to see Carol on October 08.
--- NOTE | 2018-10-05 16:21 | PC.NURSE ---
Addendum entered by Misa Davis R.N. 10/05/18 21:18: 2100 - [place] [facility] [place] continues to c/o increased abd pain. 01/19. Rx given per pt request. G-tube clamped following po med administration. Drainage pouch to fistula site without measurable drainage. Erythema to abd within marked margins. ABX, IVF, TPN and Lipids infusing. Call light in reach. Addendum entered by Misa Davis R.N. 10/05/18 18:39: 1750 - Drainage appliance changed by wound nurse r/t leakage. Tearful and c/o pain during care. RX given. Following drsg change pt agreeable to shower. Up and ambulated with fww to shower room. Reports feeling mildly unsteady with some generalized weakness. SBA. Original Note: 3855 - Pt is tearful and anxious. States I just want this to be over. C/o abd pain, increasing since drainage appliance and wound care. No drainage in collection device at this time. Pt states that at home she was taking an antidepressant, and states, It seemed to be helping. Discussed treatment plan, mobility, and safety. Offered IS pt declined, encouraged deep breath and cough. Encouraged ambulation and SCD's use pt indicated that she maybe agreeable to these things later, requesting to be able to work on pain control and requesting to sleep. RX given as ordered. Call placed to Dr. Keller, order obtained to resume pt antidepressant medication per her home routine.
--- NOTE | 2018-10-05 18:16 | PC.NURSE ---
Wound Ostomy Nurse Note Come back to see how the fistula/wound pouch was doing, but it is leaking under the pouch. Removed the pouch and place a urostomy pouch. Used the crusting technique around the fistula and a hydrocolloid then the urostomy pouch as this is much more flexible. I will return on Monday to see how Carol is doing.
[2018-10-05] MEDS: FAT EMULSIONS 50 GM/250 ML EMULSION IV (18:46)
[2018-10-05] MEDS: SODIUM CHLORIDE 0.9% IV (18:51)
[2018-10-05] MEDS: LYTES IV (18:51)
[2018-10-05] MEDS: CALCIUM IV (18:51)
[2018-10-05] MEDS: DEXT IV (18:51)
[2018-10-05] MEDS: [UNRECOGNIZED DRUG - OTHER] IV (18:51)
[2018-10-06] VITALS (8 sets, daily range): BP systolic 143–167; BP diastolic 83–122; PULSE 73–79; RESP 16–19; TEMP 36.5–37.3; O2SAT 76–97
[2018-10-06] MEDS: METOPROLOL IR 25 MG TABLET PO ×3 (00:09→21:35)
[2018-10-06] MEDS: LORazepam 2 MG/ML SYRINGE 1 MG IV ×5 (01:06→23:33)
[2018-10-06] MEDS: HYDROMORPHONE 0.5 MG INJ IV ×7 (03:12→23:32)
[2018-10-06 04:58] LABS: Add Manual Diff / Slide Review NO; Basophils Absolute Auto 100 /uL (0-100); Basophils Percent Auto 1.1 % (0-2); Eosinophils Absolute Auto 200 /uL (0-450); Eosinophils Percent Auto 3.3 % (2-4); Hemoglobin 7.8 g/dL (12.0-16.0); Lymphocytes Absolute Auto 1100 /uL (1100-4500); Lymphocytes Percent Auto 22.2 % (25-40); Mean Corpuscular HGB Conc 34.1 % (30-36); Monocytes Absolute Auto 500 /uL (0-900); Monocytes Percent Auto 10.5 % (3-14); Neutrophils Absolute Auto 3100 /uL (1500-7000); Neutrophils Percent Auto 62.9 % (50-75); Platelet Count 287 X10^3/uL (150-400); Red Cell Distribution Width 16.5 % (11.6-14.8)
[2018-10-06 05:07] LABS: Alanine Aminotransferase 17 IU/L (9-52); Albumin 2.7 g/dL (3.5-5.0); Albumin Globulin Ratio 0.8 (1.0-2.8); Alkaline Phosphatase 62 U/L (38-126); Aspartate Aminotransferase 17 IU/L (14-36); Bilirubin Total 0.2 mg/dL (0.2-1.3); Blood Urea Nitrogen 6 mg/dL (7-17); Calcium 8.3 mg/dL (8.4-10.2); Carbon Dioxide 26 mmol/L (22-32); Chloride 105 mmol/L (98-107); Estimated Glomerular Filt Rate > 60.0 mL/min (>60); Globulin 3.3 g/dL (1.7-4.1); Glucose 112 mg/dL (70-100); HEMOLYSIS 18 (0-50); Magnesium 1.8 mg/dL (1.6-2.3); Potassium 3.9 mmol/L (3.4-5.1); Sodium 139 mmol/L (137-145)
[2018-10-06 05:20] LABS: Prealbumin 5.1 mg/dL (17.6-36.0)
[2018-10-06] MEDS: MORPHINE ER 15 MG TABLET PO ×3 (06:20→21:34)
[2018-10-06] MEDS: CEFAZOLIN 2 GM/100 ML FROZ.PIGGY IV ×3 (06:21→21:34)
[2018-10-06] MEDS: PROMETHAZINE 25 MG TABLET PO (08:24)
[2018-10-06] MEDS: IBUPROFEN 600 MG TABLET PO (08:24)
[2018-10-06] MEDS: CITALOPRAM 20 MG TABLET PO (08:25)
--- NOTE | 2018-10-06 09:40 | P.PN_ITS ---
Subjective Date Patient Seen: 10/06/18 Time Patient Seen: 09:38 Interval history: Patient with a chronic small bowel partial obstruction. 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 Today she is resting comfortably was sleeping when I enter the room awakened easily and is alert and oriented. She has minimal abdominal discomfort. Exam Vital Signs (past 8 hours): - 10/06/18 04:45 10/06/18 08:00 10/06/18 08:22 Temperature 97.7 F 99.1 F 99.1 F Pulse Rate 73 79 Respiratory Rate 16 16 Blood Pressure 143/83 H 164/122 H Pulse Oximetry 96 96 Oxygen Delivery Method Room Air Oxygen Flow Rate 0 Narrative Exam Narrative: Patient is afebrile. Abdominal exam reveals minimal clear drainage from the fistula into an ostomy bag. Her marked area of erythema is diminishing. She has slight tenderness around the erythematous skin. Objective Labs Result Diagrams: 10/06/18 04:40 10/06/18 04:40 Labs: Laboratory Results - last 24 hr 10/06/18 10/06/18 04:40 04:40 WBC 5.0 RBC 2.80 L Hgb 7.8 L Hct 23.0 L MCV 82.0 MCH 28.0 MCHC 34.1 RDW 16.5 H Plt Count 287 Neut % (Auto) 62.9 Lymph % (Auto) 22.2 L [place] % (Auto) 10.5 Eos % (Auto) 3.3 Baso % (Auto) 1.1 Neut # (Auto) 3100 Lymph # (Auto) 1100 [place] # (Auto) 500 Eos # (Auto) 200 Baso # (Auto) 100 Sodium 139 Potassium 3.9 Chloride 105 Carbon Dioxide 26 BUN 6 L Creatinine 0.60 Estimated GFR > 60.0 BUN/Creatinine Ratio 10.0 Glucose 112 H Calcium 8.3 L Magnesium 1.8 Total Bilirubin 0.2 AST 17 ALT 17 Alkaline Phosphatase 62 Total Protein 6.0 L Albumin 2.7 L Globulin 3.3 Albumin/Globulin Ratio 0.8 L Prealbumin 5.1 L Assessment & Plan Assessment & Plan narrative: Patient is stable right now. She is being maintained on chronic TPN. I have reordered her TPN for today her electrolytes are normal and her blood sugar is 112. Have slowed her saline infusion. Continue her antibiotic therapy. Quality VTE Deep Vein Thrombosis/Pulmonary Embolism Present on Admission: No
--- NOTE | 2018-10-06 11:07 | CM.DPNOTE ---
Reviewed chart. Pt w/new fistula requiring placement of an ostomy device and inpt management from wound care nurse Amanda Sellers, see her notes. This LOSS PREVENTION LEAD reviewed pt's current medical POC and anticipated DCP needs w/ RN Eri this morning. She explained there are some unknowns re: DC date and plan and RN suggested this LOSS PREVENTION LEAD wait to speak w/pt about this. RN indicated pt has been tearful about her current situation but in better spirits after walking around unit and in hallway and getting some fresh air this morning. Pt has also been struggling w/pain control. Pt sleeping this morning and this LOSS PREVENTION LEAD advised to allow her to sleep/rest today, so will not plan another visit today. LOSS PREVENTION LEAD team will continue to follow closely for support and coordination of safe DCP. Surgery at is still anticipated in November or December according to medical team. Ginny w/ [facility] updated re: pt's current medical status, DC date unknown at this time. P: DC home is expected w/resumption of TPN through [facility]. HH will likely be needed upon DC for assist in wound care and ostomy (?) management, close f/u at the wound care clinic is also expected. R/o need for ongoing IV abx. BRENDAN Verde
[2018-10-06] MEDS: ENOXAPARIN 40 MG/0.4 ML SYRINGE SUBCUT (13:59)
[2018-10-06] MEDS: SODIUM CHLORIDE 0.9% 1,000 ML 30 ML IV (14:02)
[2018-10-06] MEDS: CALCIUM IV (17:57)
[2018-10-06] MEDS: [UNRECOGNIZED DRUG - OTHER] IV (17:57)
[2018-10-06] MEDS: LYTES IV (17:57)
[2018-10-06] MEDS: SODIUM CHLORIDE 0.9% IV (17:57)
[2018-10-06] MEDS: DEXT IV (17:57)
[2018-10-06] MEDS: SODIUM CHLORIDE 0.9% FLUSH 10 ML IV (18:17)
[2018-10-07] VITALS (8 sets, daily range): BP systolic 149–167; BP diastolic 88–93; PULSE 70–85; RESP 15–19; TEMP 36.3–36.7; O2SAT 94–98
[2018-10-07] MEDS: HYDROMORPHONE 0.5 MG INJ IV ×6 (03:41→23:43)
[2018-10-07] MEDS: LORazepam 2 MG/ML SYRINGE 1 MG IV ×4 (03:41→23:42)
[2018-10-07] MEDS: SODIUM CHLORIDE 0.9% FLUSH 10 ML IV ×3 (03:42→23:44)
[2018-10-07] MEDS: MORPHINE ER 15 MG TABLET PO ×3 (05:58→22:03)
[2018-10-07] MEDS: CEFAZOLIN 2 GM/100 ML FROZ.PIGGY IV ×3 (05:58→22:04)
[2018-10-07] MEDS: IBUPROFEN 600 MG TABLET PO (06:05)
[2018-10-07] MEDS: METOPROLOL IR 25 MG TABLET PO ×2 (06:07→22:09)
--- NOTE | 2018-10-07 08:48 | P.PN_ITS ---
Subjective Date Patient Seen: 10/07/18 Time Patient Seen: 08:46 Interval history: Patient in the hospital with a chronic partial small bowel obstruction and new development of recurring enterocutaneous fistula. Subjectively she is resting comfortably in bed with minimal discomfort. Exam Vital Signs (past 8 hours): - 10/07/18 03:41 10/07/18 04:17 10/07/18 08:00 Temperature 97.9 F 97.8 F 97.4 F L Pulse Rate 76 74 Respiratory Rate 15 18 Blood Pressure 161/93 H 164/90 H Pulse Oximetry 96 94 Oxygen Delivery Method Room Air Oxygen Flow Rate 0 Narrative Exam Narrative: Patient is afebrile. Abdomen is essentially unchanged from yesterday where the erythema around this reopened enterocutaneous fistula is diminishing. There is very little if any drainage from the tract today. Objective Labs Result Diagrams: 10/06/18 04:40 10/06/18 04:40 Assessment & Plan Assessment & Plan narrative: Patient seems to be stabilized she is still on 2 antibiotics and has been afebrile for several days. Her TPN has been reordered. Because her blood pressure has slowly been creeping up I have restarted her briana e dose of lisinopril. Labs for tomorrow are ordered to monitor her TPN. Quality VTE Deep Vein Thrombosis/Pulmonary Embolism Present on Admission: No
[2018-10-07] MEDS: LISINOPRIL 10 MG TABLET PO (09:27)
[2018-10-07] MEDS: PROMETHAZINE 25 MG TABLET PO (09:28)
[2018-10-07] MEDS: ENOXAPARIN 40 MG/0.4 ML SYRINGE SUBCUT (09:28)
[2018-10-07] MEDS: CITALOPRAM 20 MG TABLET PO (09:29)
[2018-10-07] MEDS: SODIUM CHLORIDE 0.9% 1,000 ML 30 ML IV (14:15)
[2018-10-07] MEDS: [UNRECOGNIZED DRUG - OTHER] IV (18:14)
[2018-10-07] MEDS: DEXT IV (18:14)
[2018-10-07] MEDS: SODIUM CHLORIDE 0.9% IV (18:14)
[2018-10-07] MEDS: CALCIUM IV (18:14)
[2018-10-07] MEDS: LYTES IV (18:14)
[2018-10-08 03:15] VITALS: BP 162/87; PULSE 81; RESP 16; TEMP 36.2; O2SAT 93
[2018-10-08] MEDS: HYDROMORPHONE 0.5 MG INJ IV ×6 (03:17→20:29)
[2018-10-08] MEDS: SODIUM CHLORIDE 0.9% FLUSH 10 ML IV ×4 (05:10→21:39)
[2018-10-08] MEDS: CEFAZOLIN 2 GM/100 ML FROZ.PIGGY IV ×3 (05:58→20:12)
[2018-10-08] MEDS: MORPHINE ER 15 MG TABLET PO ×3 (05:58→23:07)
[2018-10-08] MEDS: IBUPROFEN 600 MG TABLET PO ×2 (05:59→18:13)
--- NOTE | 2018-10-08 07:36 | PC.NURSE ---
Dr. Lozoya on rounds at bedside. Reviewed last labs on 10/06/18. Assessed pt together at bedside and reviewed wound care reg, last BM, pt cont. requirements for PRN dilaudid. Reviewed d/c plan. Dr. Lozoya states poss d/c in the next 1-2 days. Plan for today is to mobilize pt as much as possible, attempt to wean PRN pain rx, stop IV abx and monitor for fevers/symptoms, and institute bowel med regimen. Pt verbalizes understanding of plan of care. VORB for bowel med regimen and dc abx.
[2018-10-08 07:58] VITALS: BP 148/105; PULSE 79; RESP 15; TEMP 37; O2SAT 94
[2018-10-08] MEDS: CITALOPRAM 20 MG TABLET PO (08:22)
[2018-10-08] MEDS: POLYETHYLENE GLYCOL 3350 17 GM POWD.PACK PO (08:22)
[2018-10-08] MEDS: LISINOPRIL 10 MG TABLET PO (08:22)
[2018-10-08] MEDS: ENOXAPARIN 40 MG/0.4 ML SYRINGE SUBCUT (08:22)
[2018-10-08] MEDS: DOCUSATE 100 MG CAPSULE PO ×2 (08:22→21:38)
--- NOTE | 2018-10-08 08:22 | PM.PN.1 ---
Subjective Date Patient Seen: 10/08/18 Time Patient Seen: 07:23 Interval history: Did well over the weekend, remained afebrile, grace CLD, scant output reported in ostomy appliance. Walking minimally but able to manage by herself well. Still c/o pain and using IV pushes quite a bit. Exam Vital Signs (past 8 hours): - 10/08/18 03:15 10/08/18 07:58 Temperature 97.1 F L 98.6 F Pulse Rate 81 79 Respiratory Rate 16 15 Blood Pressure 162/87 H 148/105 H Pulse Oximetry 93 94 Oxygen Delivery Method Room Air Oxygen Flow Rate 0 Narrative Exam Narrative: AAO, NAD EOMI, MMM unlabored RA soft, nt/nd, G tube clamped currently, ostomy appliance over midline presumed fistula with scant brownish drainage in bag MAEW skin dry Objective Labs Result Diagrams: 10/06/18 04:40 10/06/18 04:40 Assessment & Plan Assessment & Plan narrative: - afebrile, VSS --> HTN improving with meds - WBC normal --> redraw blood culture, may be able to stop abx unless PICC seeding has kept bacteremia present - TPN --> has malnutrition due to her chronic abd issues, prealbumin 5, lytes normal --> CLD as tolerating - presumed ECF with scant output since ostomy appliance placed Monday --> cont' to monitor --> rescan with fistulagram later this week - OOB, mobilize more --> pt walking well herself just not OOB much - need to reduce IV dilaudid use, stay on PO morphine per home regimen --> chronic use so tolerance acquired, need to start weaning down again as acute issues resolve Quality VTE Deep Vein Thrombosis/Pulmonary Embolism Present on Admission: No
[2018-10-08 09:30] LABS: BUN Creatinine Ratio 12.9 (6-22); Blood Urea Nitrogen 9 mg/dL (7-17); Calcium 8.7 mg/dL (8.4-10.2); Carbon Dioxide 33 mmol/L (22-32); Chloride 98 mmol/L (98-107); Estimated Glomerular Filt Rate > 60.0 mL/min (>60); Glucose 116 mg/dL (70-100); HEMOLYSIS < 15 (0-50); Potassium 4.1 mmol/L (3.4-5.1); Sodium 139 mmol/L (137-145)
[2018-10-08] MEDS: LORazepam 2 MG/ML SYRINGE 1 MG IV ×3 (10:30→21:38)
--- NOTE | 2018-10-08 10:52 | PC.NURSE ---
Patient medicated with IV dilaudid as ordered for severe breakthrough pain this morning. Requested to rest for longer prior to getting up and walking. Medicated with IV ativan for anxiety and nausea per patient request. Drank cranberry juice earlier this morning, up to void with SB assistance to BSC. Urine is clear and yellow. No BM reports, although patient has active bowel sounds through out and is passing gas. Bowel program started by Dr. Lozoya this morning. G Tube in place to gravity (clamped for 1 hour with po med administration). Patient able to call for assistance appropriately, needs encouragement to increase activity. call light within reach, continue to monitor.
[2018-10-08 12:22] VITALS: BP 119/56; PULSE 80; RESP 16; TEMP 36.6; O2SAT 95
--- NOTE | 2018-10-08 13:49 | PC.NURSE ---
Patient transferred upstairs to acute care for continued monitoring. Patient without complaint upon transfer. All belongings sent up to room. G tube and abdominal dressing remain intact without changes. Report given to accepting nurse Lily Langford to continue care.
[2018-10-08 15:48] VITALS: BP 151/93; PULSE 73; RESP 16; TEMP 36.4; O2SAT 93
[2018-10-08] MEDS: DEXT IV (18:09)
[2018-10-08] MEDS: CALCIUM IV (18:09)
[2018-10-08] MEDS: [UNRECOGNIZED DRUG - OTHER] IV (18:09)
[2018-10-08] MEDS: LYTES IV (18:09)
[2018-10-08] MEDS: SODIUM CHLORIDE 0.9% IV (18:09)
[2018-10-08 19:15] VITALS: BP 151/90; PULSE 73; RESP 14; TEMP 36.2; O2SAT 92
[2018-10-09] VITALS (8 sets, daily range): BP systolic 136–162; BP diastolic 81–89; PULSE 71–89; RESP 14–22; TEMP 36.3–36.9; O2SAT 92–96
--- NOTE | 2018-10-09 | DI.US.S_ITS ---
PROCEDURE: US PERIPH VENOUS UP EXTREM RT INDICATIONS: RIGHT ARM EDEMA; PICC IN PLACE TECHNIQUE: Real-time imaging, as well as color and pulse Doppler interrogation, was performed of the right upper extremity deep veins from the inferior neck to the antecubital fossa. COMPARISON: [facility], , [facility] VENOUS UP EXTREM RT, 09/10/2018, 14:49. FINDINGS: A PICC line is present in the right brachial vein extending proximally into the subclavian vein. Within the brachial vein, surrounding the PICC line, there is mildly hyperechoic intraluminal material resulting in partial compressibility of the vein suspicious for thrombus. The subclavian vein demonstrates normal phasicity without occlusive thrombus. There is no propagation of thrombus into other upper extremity veins. The internal jugular vein, visualized portions of the subclavian vein, axillary, veins are free of intraluminal thrombus. Additional scanning of the cephalic and basilic veins of the superficial system demonstrate normal compressibility, without thrombus. IMPRESSION: 1. There is thrombus in the right upper extremity deep venous system surrounding and attached to the existing PICC line, also seen in the subclavian vein adjacent to PICC line. Thrombus partially occludes the vein lumen outside PICC line. Patency of the PICC line is not assessed on this study. 2. Findings discussed with Dr. Chris covering for Dr. Lozoya at time of dictation. Dictated by: Martha Jimenez M.D. on 10/09/2018 at 19:45 Approved by: Martha Jimenez M.D. on 10/09/2018 at 20:09
[2018-10-09] MEDS: HYDROMORPHONE 0.5 MG INJ IV ×6 (00:22→22:10)
[2018-10-09] MEDS: SODIUM CHLORIDE 0.9% FLUSH 10 ML IV ×5 (00:23→21:23)
[2018-10-09] MEDS: CEFAZOLIN 2 GM/100 ML FROZ.PIGGY IV ×3 (04:26→19:41)
[2018-10-09 05:55] LABS: Add Manual Diff / Slide Review NO; Basophils Absolute Auto 0 /uL (0-100); Basophils Percent Auto 0.9 % (0-2); Eosinophils Absolute Auto 200 /uL (0-450); Hemoglobin 8.6 g/dL (12.0-16.0); Lymphocytes Absolute Auto 1200 /uL (1100-4500); Lymphocytes Percent Auto 30.2 % (25-40); Mean Corpuscular HGB Conc 33.5 % (30-36); Mean Corpuscular Hemoglobin 27.5 PG (26-34); Mean Corpuscular Volume 81.9 fL (80-100); Monocytes Absolute Auto 400 /uL (0-900); Monocytes Percent Auto 10.9 % (3-14); Neutrophils Absolute Auto 2100 /uL (1500-7000); Platelet Count 362 X10^3/uL (150-400); Red Blood Cell Count 3.12 X10^6/uL (4.0-5.2); Red Cell Distribution Width 16.3 % (11.6-14.8); White Blood Cell Count 3.9 X10^3/uL (4.5-11.0)
[2018-10-09 05:59] LABS: Alanine Aminotransferase 18 IU/L (9-52); Albumin 2.8 g/dL (3.5-5.0); Albumin Globulin Ratio 0.8 (1.0-2.8); Alkaline Phosphatase 65 U/L (38-126); Aspartate Aminotransferase 16 IU/L (14-36); BUN Creatinine Ratio 14.3 (6-22); Bilirubin Total 0.1 mg/dL (0.2-1.3); Blood Urea Nitrogen 10 mg/dL (7-17); Calcium 8.8 mg/dL (8.4-10.2); Carbon Dioxide 33 mmol/L (22-32); Chloride 100 mmol/L (98-107); Estimated Glomerular Filt Rate > 60.0 mL/min (>60); Globulin 3.4 g/dL (1.7-4.1); Glucose 118 mg/dL (70-100); HEMOLYSIS < 15 (0-50); Potassium 4.2 mmol/L (3.4-5.1); Sodium 139 mmol/L (137-145); Total Protein 6.2 g/dL (6.3-8.2)
[2018-10-09 06:03] LABS: Hematocrit 25.5 % (36-46)
[2018-10-09] MEDS: MORPHINE ER 15 MG TABLET PO ×3 (06:06→21:31)
[2018-10-09] MEDS: LORazepam 2 MG/ML SYRINGE 1 MG IV ×4 (06:07→22:10)
[2018-10-09] MEDS: ENOXAPARIN 40 MG/0.4 ML SYRINGE SUBCUT (08:37)
[2018-10-09] MEDS: LISINOPRIL 10 MG TABLET PO (08:37)
[2018-10-09] MEDS: CITALOPRAM 20 MG TABLET PO (08:38)
[2018-10-09] MEDS: DOCUSATE 100 MG CAPSULE PO ×2 (08:38→19:41)
--- NOTE | 2018-10-09 08:46 | PM.PN.1 ---
Subjective Date Patient Seen: 10/09/18 Time Patient Seen: 07:46 Interval history: Doing well, has been up walking more. José Miguel CLD. Scant output from midline. Exam Vital Signs (past 8 hours): - 10/09/18 06:00 10/09/18 08:34 Temperature 98.1 F 97.6 F Pulse Rate 71 80 Respiratory Rate 22 71 H Blood Pressure 155/81 H 162/89 H Pulse Oximetry 96 95 Oxygen Delivery Method Room Air Oxygen Flow Rate 0 Narrative Exam Narrative: AAO, NAD EOMI, MMM unlabored RA soft, nt/nd; G-tube with gastric contents; midline ostomy appliance with scant output MAEW Objective Labs Result Diagrams: 10/09/18 05:08 10/09/18 05:08 Labs: Laboratory Results - last 24 hr 10/08/18 10/09/18 10/09/18 08:52 05:08 05:08 WBC 3.9 L RBC 3.12 L Hgb 8.6 L Hct 25.5 L MCV 81.9 MCH 27.5 MCHC 33.5 RDW 16.3 H Plt Count 362 Neut % (Auto) 54.0 Lymph % (Auto) 30.2 [place] % (Auto) 10.9 Eos % (Auto) 4.0 Baso % (Auto) 0.9 Neut # (Auto) 2100 Lymph # (Auto) 1200 [place] # (Auto) 400 Eos # (Auto) 200 Baso # (Auto) 0 Sodium 139 139 Potassium 4.1 4.2 Chloride 98 100 Carbon Dioxide 33 H 33 H BUN 9 10 Creatinine 0.70 0.70 Estimated GFR > 60.0 > 60.0 BUN/Creatinine Ratio 12.9 14.3 Glucose 116 H 118 H Calcium 8.7 8.8 Total Bilirubin 0.1 L AST 16 ALT 18 Alkaline Phosphatase 65 Total Protein 6.2 L Albumin 2.8 L Globulin 3.4 Albumin/Globulin Ratio 0.8 L Assessment & Plan Assessment & Plan narrative: - AF, no leukocytosis - new blood cultures pending --> cont' abx for full 2 week course given MSSA - ambulate - TPN, CLD as tolerating --> malnutrition moderate to severe given chronic illness and inability to tolerate full enteral feedings - unclear if midline hole is a fistula, while it is presumed to be the output has been scant since the first day of opening; will rescan with a fistulagram in 1-2 days Quality VTE Deep Vein Thrombosis/Pulmonary Embolism Present on Admission: No
--- NOTE | 2018-10-09 13:37 | PC.NURSE ---
Pt complains of r.upper arm pain where picc line is inserted. Ultra sound ordered via verbal order. R.upper extremity not swollen and warm pack placed around arm. Pt given Dilaudid x2 for pain 12/19. Tpn down to 101 around 0900 and then stopped at 1030. Pt just now asking for iv ativan. She is lying on her side and other tierney comfortable.
[2018-10-09] MEDS: METOPROLOL IR 25 MG TABLET PO (17:21)
[2018-10-09] MEDS: CALCIUM IV (17:57)
[2018-10-09] MEDS: FAT EMULSIONS 50 GM/250 ML EMULSION IV (17:57)
[2018-10-09] MEDS: LYTES IV (17:57)
[2018-10-09] MEDS: DEXT IV (17:57)
[2018-10-09] MEDS: [UNRECOGNIZED DRUG - OTHER] IV (17:57)
[2018-10-09] MEDS: SODIUM CHLORIDE 0.9% IV (17:57)
[2018-10-09] MEDS: ENOXAPARIN 100 MG/ML SYRINGE SUBCUT (21:22)
[2018-10-10] VITALS (7 sets, daily range): BP systolic 116–165; BP diastolic 63–91; PULSE 74–84; RESP 16–18; TEMP 36.2–37.2; O2SAT 90–94
--- NOTE | 2018-10-10 | DI.CT.S_ITS ---
PROCEDURE: CT ABDOMEN PELVIS W CON INDICATIONS: evaluate for possible ECF TECHNIQUE: After the administration of oral and intravenous contrast, 5 mm thick sections acquired from the diaphragms to the symphysis. 5 mm thick coronal and sagittal reformats were performed. For radiation dose reduction, the following was used: automated exposure control, adjustment of mA and/or kV according to patient size. COMPARISON: [facility], CT, CT ABDOMEN PELVIS WO CON, 10/04/2018, 12:17. [facility], CT, CT CHEST ABD PEL W CON, 10/03/2018, 13:57. [facility], CT, CT ABDOMEN PELVIS W CON, 09/26/2018, 22:50. [facility], CT, CT ABDOMEN PELVIS W CON, 05/16/2018, 17:22. [facility], CT, CT ABDOMEN PELVIS W CON, 04/15/2018, 17:13. [facility], CT, KIDNEY/ URETER/BLADDER, 12/13/2009, 18:57. FINDINGS: Image quality: Diagnostic. ABDOMEN: Lung bases: Lung bases are clear. Heart size is normal. Solid organs: The liver is hypodense when compared to the spleen. Focal area of more pronounced hypodensity is identified along the falciform ligament of the left hepatic lobe, similar to prior studies. The liver, spleen, adrenals, pancreas, and kidneys are otherwise unchanged and unremarkable. Incidental note is made of a retroaortic left renal vein. Peritoneum and bowel: A gastrostomy tube is again identified and which is positioned within the body of the stomach. The small bowel loops are nondilated. Stool is seen within the colon. No definite free fluid or loculated fluid collection is seen within the abdomen. No free air is evident. Nodes and vessels: Borderline prominent retroperitoneal and mesenteric lymph nodes are identified without rebecca lymphadenopathy. Aorta and inferior vena cava are normal in caliber. There is aortic atherosclerosis. Bones: No acute fractures or suspicious osseous lesions are present. PELVIS: Soft tissues: A there continues to be a peripherally enhancing loculated fluid collection along the anterior left infraumbilical abdominal wall, which measures approximately 7 x 1 cm, similar to the previous examination (image 51, series 2). Small amount of air is contained within it this loculated fluid collection. No new fluid collections are identified. There is mild edema within the mesentery at this location. Skin thickening within the periumbilical region is identified. No free fluid is seen within the pelvis. The uterus and ovaries are not well evaluated, but do not appear to be enlarged. Bones: No suspicious bony lesions. No acute fractures are evident. IMPRESSION: 1. Intraperitoneal loculated fluid collection within the pelvis along the anterior abdominal wall is similar in size to the previous examination and is suspicious for a developing abscess. 2. Skin thickening within the periumbilical region may be postoperative in nature. Cellulitis may also have this appearance. 3. No bowel obstruction. 4. The bladder wall is within normal limits on the current study. 5. Previously seen pleural effusions have resolved. 6. Mild hepatic steatosis. 7. Gastrostomy tube is in appropriate position. Dictated by: Javier Gonzáles M.D. on 10/10/2018 at 10:53 Approved by: Javier Gonzáles M.D. on 10/10/2018 at 11:17
--- NOTE | 2018-10-10 00:06 | PC.NURSE ---
US ordered at 1325 by day shift RN, and this writer technical publications reordered US three times, once on phone with coordinator and once in front of US tax examining technician. Orders were not generating to imaging, they were generating under CARE. US done, and read by Dr. Jimenez @ 1945. This writer technical publications was notified by Dr. Jimenez as to positive results for DVT to Right upper arm surrounding PICC site. Dr. Jimenez notified Dr. Chris, and this writer technical publications received orders from Dr. Chris @ 2014 for lovonox 100mg Sub-Q NOW and Q-12hrs. Dr. Jimenez further informed subclavian vein is unknown of DVT (US did not show), and upper extremity arteries/veins are patent. Furthermore, [facility] PICC is patent and infusing TPN @ 203, and lipids @ 25, ABO @ 2000 and flushed well. CBG @ 1800-97. SBA to BSC to void. G-tube 750mL out, fistula umbilici ostomy bag drainage scant brown mucusish. Dilaudid for pain, ativan for nausea, and metoprolol for HTN SPB>150.
[2018-10-10] MEDS: CEFAZOLIN 2 GM/100 ML FROZ.PIGGY IV ×3 (03:46→21:21)
[2018-10-10] MEDS: HYDROMORPHONE 0.5 MG INJ IV ×3 (03:46→19:30)
[2018-10-10] MEDS: METOPROLOL IR 25 MG TABLET PO (05:20)
[2018-10-10] MEDS: LORazepam 2 MG/ML SYRINGE 1 MG IV ×4 (05:43→22:28)
[2018-10-10] MEDS: MORPHINE ER 15 MG TABLET PO ×2 (05:44→18:13)
--- NOTE | 2018-10-10 08:53 | PM.PN.1 ---
Subjective Date Patient Seen: 10/10/18 Time Patient Seen: 08:54 Interval history: Patient has not been out of bed much since return to the floor despite discussions. Complained of arm pain last night and US shows DVT in RUE. PICC still working. Anti-coagulation started. Exam Vital Signs (past 8 hours): - 10/10/18 03:50 10/10/18 07:00 Temperature 98 F 97.7 F Pulse Rate 80 80 Respiratory Rate 16 16 Blood Pressure 165/91 H 135/81 Pulse Oximetry 93 90 L Oxygen Delivery Method Room Air Oxygen Flow Rate 0 Narrative Exam Narrative: AAO, NAD EOMI, MMM unlabored RA soft, nt/nd; G tube draining gastric contents MAEW; mild swelling RUE > L Objective Labs Result Diagrams: 10/09/18 05:08 10/09/18 05:08 Assessment & Plan Assessment & Plan narrative: - AF --> IV abx for 2 week course given MSSA (to end 10/15), no growth on new blood cultures --> will need home health for abx - new RUE DVT from PICC and lack of mobility despite chemoprophylaxis --> on therapeutic lovenox now, will transition to likely eliquis on d/c - TPN for malnutrition and inability to tolerate enteral intake; CLD as tolerating - CT today to re-eval for possible ECF, drainage has been so scant since initial opening that fistula is questionable Quality VTE Deep Vein Thrombosis/Pulmonary Embolism Present on Admission: No
[2018-10-10] MEDS: CITALOPRAM 20 MG TABLET PO (08:54)
[2018-10-10] MEDS: ENOXAPARIN 100 MG/ML SYRINGE SUBCUT ×2 (08:55→21:23)
[2018-10-10] MEDS: DOCUSATE 100 MG CAPSULE PO ×2 (08:55→21:23)
[2018-10-10] MEDS: LISINOPRIL 10 MG TABLET PO (09:00)
[2018-10-10] MEDS: SODIUM CHLORIDE 0.9% FLUSH 10 ML IV ×2 (09:59→21:24)
--- NOTE | 2018-10-10 12:23 | PT.IPTN ---
Current Diagnoses Intestinal adhesions [bands], unspecified as to partial versus complete obstruction (09/27/18) Physical Therapy Treatment Note M3 PT-IP Subjective Start: 10/10/18 12:21 Freq: NEEDED Status: Active Protocol: Document 10/10/18 12:21 AB (Rec: 10/10/18 12:23 AB [id number]) Subjective Physical Therapy Visit Type Type Patient Refusal Notes checked on pt and stated that she just walked with nursing and that she does not need PT and agreed to d/c PT eval order. encouraged pt to ambulate with nursing and agreed. informed social media developer and nurse regarding PT eval d/c.
--- NOTE | 2018-10-10 13:30 | PC.NURSE ---
Pt is A&Ox3. She was crying earlier and complaining of significant pain to her abdomen and her r.upper extremity. She does have a clot to r.upper arm and area is slightly swollen. Not red or warm to touch. Pt is on lovenox sq and this was given earlier this morning. Surgeon into see patient this morning and stresses to ambulate patient and start her on stool softners. Pt did get andrei this am. She had a lot of contrast for a fistula gram earlier and this may also help promote a bm. Pts iv dilaudid is now routine every 6 hours after pt given around 12 she calmed right down. Fistula bag changed to r.side. Urostomy bag in place for drainage. Pt has not had much drainage out in the last two shift this rn as worked. Area cleaned up and looking better. Incision is red but starting to heal better. Powder applied around incision. Pt also has a gastrostomy tube that is putting out bile/ cranberry colored drainage. T dressing applied around site and area is pink. Pt is tolerating some clear liquids. Given Ativan earlier for nausea. She is resting comfortably at this time.
[2018-10-10] MEDS: LYTES IV (18:32)
[2018-10-10] MEDS: CALCIUM IV (18:32)
[2018-10-10] MEDS: [UNRECOGNIZED DRUG - OTHER] IV (18:32)
[2018-10-10] MEDS: SODIUM CHLORIDE 0.9% IV (18:32)
[2018-10-10] MEDS: DEXT IV (18:32)
[2018-10-11] VITALS: BP 125/72; PULSE 80; RESP 16; TEMP 36.6; O2SAT 95
[2018-10-11] MEDS: MORPHINE ER 15 MG TABLET PO ×4 (00:02→21:52)
[2018-10-11] MEDS: HYDROMORPHONE 0.5 MG INJ IV ×4 (00:02→17:50)
[2018-10-11] MEDS: CEFAZOLIN 2 GM/100 ML FROZ.PIGGY IV ×3 (04:23→19:24)
[2018-10-11 04:30] VITALS: BP 137/72; PULSE 69; RESP 16; TEMP 36.8; O2SAT 99
[2018-10-11] MEDS: LORazepam 2 MG/ML SYRINGE 1 MG IV ×3 (04:40→17:49)
[2018-10-11] MEDS: SODIUM CHLORIDE 0.9% FLUSH 10 ML IV ×3 (06:05→21:51)
[2018-10-11 08:00] VITALS: BP 120/67; PULSE 71; RESP 16; TEMP 36.7; O2SAT 96
[2018-10-11] MEDS: DOCUSATE 100 MG CAPSULE PO ×2 (08:37→21:51)
[2018-10-11] MEDS: ENOXAPARIN 100 MG/ML SYRINGE SUBCUT ×2 (08:37→21:51)
[2018-10-11] MEDS: CITALOPRAM 20 MG TABLET PO (08:37)
[2018-10-11] MEDS: LISINOPRIL 10 MG TABLET PO (08:38)
[2018-10-11] MEDS: PROMETHAZINE 25 MG TABLET PO (08:39)
[2018-10-11] MEDS: ACETAMINOPHEN 325 MG TABLET 650 MG PO (08:39)
--- NOTE | 2018-10-11 10:47 | PC.NURSE ---
Addendum entered by Jenny Bay R.N. 10/11/18 14:34: MS/PAIN - admin the 15mg morphine ER via PEG, clamped and then w/encouragement, pt up oob and ambul hallway w/fww, gait steady, student nurse standby, ret to chair. Discussed shower while tpn not running, would like before it is reconnected this zhou. Original Note: AM NOTE - pt is alert, standby assist to br w/void, states ongoing abd discomfort and nausea, discussed pain mgt, dosages and timing, given phenergen and added tylenol to other meds this am, peg tube clamped, some slight drainage around peg insertion site, cleaned with normal saline, skin prep and replaced t sponge, ostomy bag in place over mid abd area wound, no drainage in bag.
--- NOTE | 2018-10-11 11:17 | PM.PN.1 ---
Subjective Date Patient Seen: 10/11/18 Time Patient Seen: 10:17 Interval history: No changes, still not getting out of bed hardly at all despite our talks, would like to get home. Exam Vital Signs (past 8 hours): - 10/11/18 04:30 10/11/18 08:00 Temperature 98.2 F 98.1 F Pulse Rate 69 71 Respiratory Rate 16 16 Blood Pressure 137/72 120/67 Pulse Oximetry 99 96 Oxygen Delivery Method Room Air Oxygen Flow Rate 0 Narrative Exam Narrative: AAO, NAD, morbidly obese EOMI, MMM unlabored RA soft, nt/nd; G tube with gastric contents; ostomy appliance with no fluid in bag MAEW PICC in RUE with no erythema and minimal swelling of arm Objective Labs Result Diagrams: 10/09/18 05:08 10/09/18 05:08 Assessment & Plan Assessment & Plan narrative: - No evidence of ECF on repeat imaging and has only had scant drainage since first day --> ok to remove appliance and place dressing - will work on for IV abx needed through 10/15 due to MSSA --> recent blood cx no growth through 72 hrs; pt remains afebrile - therapeutic lovenox, will start Eliquis when pt going home for RUE DVT related to PICC --> PICC is still functioning - TPN for nutrition needs --> CLD as tolerating - discussed again the strong importance of walking more and being OOB Quality VTE Deep Vein Thrombosis/Pulmonary Embolism Present on Admission: No
[2018-10-11 12:00] VITALS: BP 113/72; PULSE 76; RESP 16; TEMP 37.3; O2SAT 94
--- NOTE | 2018-10-11 15:51 | CM.DPNOTE ---
According to chart review and conversation w/ JUNIOR Alvarado, pt wants to go home tomorrow. Met w/pt at bedside alongside Kiran from [facility] to review what pt was anticipating for her DC. Pt's affect very flat today. Pt explains she would like [facility] to continue to manage her TPN and any ongoing IV abx needs. According to Dr West's note today, pt is expected to need IV abx until 5.6.19, drug and dosing are not specified. Pt is on IV anceg Q8 here. Pt will also need HH to manage wound care, she will likely have the ostomy appliance removed before DC since drainage has almost completely stopped. director of infection control will still be helpful to pt, pt agrees. Pt anticipates she will f/u at next week to determine next steps w/that facility re: surgery. Pt eager to return home. She has not been very motivated to move according to notes but was seen by this COLD ROLL OPERATOR, after our visit, walking the hallway w/walker and ENVELOPE ADDRESSERStefany Vargas [facility], notified alexandro SALDANA that pt is expected to return home Monday w/ need for HH RN. This COLD ROLL OPERATOR will follow up w/ alexandro Monday morning. [facility] will need an order upon DC to resume TPN and an order for the ongoing need of IV abx, drug and dosing need to be specified. In addition, if Dr West will follow IV abx course, this needs to be specified upon DC. This COLD ROLL OPERATOR following closely for coordination of safe DCP. BRENDAN Verde
[2018-10-11 15:53] VITALS: BP 121/85; PULSE 73; RESP 18; TEMP 36.4; O2SAT 95
[2018-10-11] MEDS: [UNRECOGNIZED DRUG - OTHER] IV (17:50)
[2018-10-11] MEDS: LYTES IV (17:50)
[2018-10-11] MEDS: CALCIUM IV (17:50)
[2018-10-11] MEDS: DEXT IV (17:50)
[2018-10-11] MEDS: SODIUM CHLORIDE 0.9% IV (17:50)
[2018-10-11 20:44] VITALS: BP 152/87; PULSE 72; RESP 20; TEMP 36.4
[2018-10-12] VITALS: BP 132/79; PULSE 78; RESP 16; TEMP 36.8; O2SAT 94
[2018-10-12] MEDS: HYDROMORPHONE 0.5 MG INJ IV ×3 (00:10→12:05)
[2018-10-12] MEDS: LORazepam 2 MG/ML SYRINGE 1 MG IV ×4 (00:25→16:29)
[2018-10-12] MEDS: CEFAZOLIN 2 GM/100 ML FROZ.PIGGY IV ×2 (04:33→12:15)
[2018-10-12 04:45] VITALS: BP 134/81; PULSE 74; RESP 16; TEMP 36.7; O2SAT 96
[2018-10-12] MEDS: SODIUM CHLORIDE 0.9% FLUSH 10 ML IV ×6 (06:06→13:01)
[2018-10-12] MEDS: MORPHINE ER 15 MG TABLET PO ×2 (06:06→13:55)
[2018-10-12] MEDS: CITALOPRAM 20 MG TABLET PO (07:51)
[2018-10-12 07:52] VITALS: BP 146/83; PULSE 88
[2018-10-12] MEDS: DOCUSATE 100 MG CAPSULE PO (07:52)
[2018-10-12] MEDS: ENOXAPARIN 100 MG/ML SYRINGE SUBCUT (07:52)
[2018-10-12] MEDS: LISINOPRIL 10 MG TABLET PO (07:52)
[2018-10-12 08:00] VITALS: BP 146/83; PULSE 80; RESP 16; TEMP 36.7; O2SAT 96
--- NOTE | 2018-10-12 08:06 | PC.NURSE ---
Addendum entered by Deja Gill R.N. 10/12/18 15:47: Per Dr. Lozoya, dreaay to removed Midline ostomy appliance and change to coversite, or allevyn dressing. Evening RN aware. Addendum entered by Deja Gill R.N. 10/12/18 10:33: Decreased TPN rate to 101ml/hr at 0854 and stopped infusion at 1003 per AUG administration order. PICC lumens both flush easily with brisk blood return. Original Note: Day Shift- Pt A&OX3, rates 6-7/10 sore/tenderness to PASCALE PICC line area, elevated on pillow. 5/10 to abd. Ativan IV PRN given at 0745 for anxiety and nausea. Able to take pills earlier than scheduled 0900 time due to GT already clamped from previously given ER Morphine, therefore decrease clamp time. Pt agreeable. TPN currently infusing at 203mls/hr, plan to decrease rate around 0850 to 101mls/hr per AUG instructions/order.
--- NOTE | 2018-10-12 09:27 | PC.NURSE ---
Late Entry: This RN took care of pt on October 09 and October 10... Pts TPN was decreased to 101 at 0900 both times and then turned off at 10:00am. Worked with student rn who did comfirm with this RN that tpn was turned down. The numbers were not documented on the EMAR as this RN did not complete TPN. It was decreased both days. Pt tolerated her TPN well.
--- NOTE | 2018-10-12 10:30 | PC.NURSE ---
Late Entry: This RN took care of pt on Apirl and October 10... Pts TPN decreased to 101 from 203 at 0900 both days and then turned off at 1000am. Worked with student nurse who did comfirm this with RN april carcamo tpn was turned down and then off. The numbers were not documented in the AUG. Pt tolerated her TPN decrease and then eventually at 1000 being turned off at 100.
--- NOTE | 2018-10-12 12:03 | P.DS_ITS ---
History of Present Illness Chief complaint: SEVERE ABDOMINAL CRAMPS Narrative: 53yo F known to the practice but new to me. She has a complex surgical history starting with remote (>15yrs) appendectomy and partial hysterectomy. About 6mo ago, she developed an SBO and underwent an ex lap with ANA ROSA. She had more episodes and underwent surgery again in Jun for same. She had an ECF that apparently closed spontaneously. She has a venting G-tube in place and a PICC for TPN. She was seen at [facility] and cleared for some PO intake of 'approved foods' and she says this has been trial and error of what she tolerates. Sometimes her tube gets clogged and thus she is back in the ED every few weeks with cramping pain issues. She is on PO morphine and lorazepam at home and per previous notes has been on a plan to wean these but does not seem as though this has happened. All told, she has lost about 45lbs since onset of this course 6mo ago; this has leveled off. Imaging now and at other admissions suggests obstructive points in her bowels but these have resolved with non- surgical mgmt. She has been described by my colleagues as having a hostile abdomen which fits her history and limits our realistic options. Another surgery for her would be at best a last resort. She is non-toxic per labs and vitals as well as exam. Abd is soft, flat, no peritoneal signs. She says this AM she got a good amount of fluid out of her G-tube and also had a large BM and feels better. She does still c/o cramps. NGTs are apparently traumatic for her and she said she would not allow placement except with sedation. Discharge Providers Date of admission: 09/27/18 00:02 Discharge Date: 10/12/18 Consults: 10/04/18 16:46 Consult to Wound Care Routine Comment: ostomy pouch placement r/t fistula to abd incision Consulting Provider: [facility] 10/10/18 08:54 Consult to Physical Therapy Evaluate & Treat Comment: needs to ambulate more Physician Instructions: Evaluate and Treat 10/11/18 11:27 Consult to Direct Customer Service Representative Routine Comment: patient needs IV antibiotics through 10/15; has PICC Discharge provider: Suzan Lozoya MD Summary Discharge Diagnosis: 1. Chronic partial small bowel obstruction 2. MSSA bacteremia 3. Intraabdominal Abscess 4. RUE DVT Hospital Course: 53yo F with complex history detailed above presents with her usual chronic partial small bowel obstruction. She also developed an intraabdominal abscess investigated for possible recurrence of ECF but this was not borne out. She had another episode of an MSSA bacteremia, initially presumed to be related to her PICC, which was exchanged for a new one from her left to right arm. The intraabdominal abscess developed during this time and began to drain spontaneously and is unclear if this was the source. She is being treated with a full 2 week course of anti-biotics and will continue her last few days at home. She is able to walk without assistance but was unwilling to do this much during her stay despite our frequent encouragements. She was treated with chemoprophylaxis but developed a RUE DVT and was started on therapeutic anti-coagulation; home on Eliquis for at least a 6 month course. Pe r her request, I did discuss her case with her surgeon and she will see him in follow up on discharge. Status at Discharge Cognitive/behavioral status at discharge: at baseline, oriented Functional status at discharge: independent ambulation Overall status at discharge: patient is progressing back to baseline Time Spent with Patient Less than 30 minutes Exam Vital Signs (past 8 hours): - 10/12/18 04:45 10/12/18 07:52 10/12/18 08:00 Temperature 98.0 F 98.0 F Pulse Rate 74 88 80 Respiratory Rate 16 16 Blood Pressure 134/81 146/83 H 146/83 H Pulse Oximetry 96 96 Oxygen Delivery Method Room Air Oxygen Flow Rate 0 Objective Labs Result Diagrams: 10/09/18 05:08 10/09/18 05:08 Discharge Plan Discharge Plan Patient Disposition: Home Health Service Discharge comment: Pt will resume Home Health services for standing TPN & continue her antibiotic regimen through October 14, 2018 via her PICC (Cefazolin 2g in 100ml IV solution TID 0400, 1200, 2000). Antibiotic questions may be directed to [facility]. Discharge Med Rec/Prescriptions Prescriptions: New cefazolin in dextrose (iso-os) 2 gram/100 mL piggyback 2 gram IV Q8H Qty: 1200 RF: 0 docusate sodium 100 mg capsule 100 mg PO BID 60 Days Qty: 120 RF: 0 Eliquis 5 mg tablet See Rx Instructions .ROUTE .COMPLEX Qty: 120 RF: 1 Continued meclizine 25 mg tablet 25 mg PO TID PRN (Reason: Dizziness) RF: 0 acetaminophen 325 mg tablet 325 mg PO Q6HR PRN (Reason: As Needed For Fever/Mild Pain) RF: 0 pantoprazole 40 mg tablet,delayed release (DR/EC) 40 mg PO DAILY Qty: 30 RF: 1 promethazine 25 mg tablet 25 mg PO Q6H PRN (Reason: nausea and vomiting) Qty: 10 RF: 0 lorazepam 1 mg tablet 1 mg PO Q4HR PRN (Reason: Anxiety) Qty: 30 RF: 1 ondansetron 4 mg Tablet,Disintegrating 4 mg Sublingual Q4HR PRN (Reason: Nausea) Qty: 30 RF: 0 morphine 15 mg tablet 15 mg PO Q12H PRN (Reason: pain) Qty: 30 RF: 0 citalopram 20 mg Tablet 20 mg PO DAILY Qty: 30 RF: 1 lisinopril 10 mg tablet 10 mg PO BEDTIME Qty: 30 RF: 0 Follow up/Referrals: Edinson Grimes [Other] Suzan Lozoya MD [Physician] - Provider Discharge Instructions Diet: Clear Liquid Diet comment: ok for small volume intermittent thick liquids Activity: ambulate 4-6 times daily Other treatments: clamp G tube for 1 hour after PO medications Skin/Wound/Dressing Care Dressing: prn dressing to abdominal incision opening Discharge Data Attending Provider: Suzan Lozoya Admit Date/Time: 09/27/18 00:02 Quality VTE Deep Vein Thrombosis/Pulmonary Embolism Present on Admission: No
[2018-10-12 15:15] VITALS: BP 132/78; PULSE 75; RESP 16; TEMP 36.7; O2SAT 94
--- NOTE | 2018-10-12 15:45 | CM.DPNOTE ---
Addendum entered by BRENDAN Verde 10/12/18 15:53: Updated Lillie w/[facility] that no HH nursing needed at this time. Lillie appreciative and will discuss a new referral w/ PCP if needs arise. MARCO Original Note: DC Note: Pt eager to return home today. This OUTREACH CONSULTANT spoke w/Dr Lozoya; explained necessary orders today for DC to include resumption of TPN and specifics on IV abx order to include drug, dosing and duration. Requested that Dr Lozoya indicate who will be following up on this IV abx, she is the physician to provide f/u for [facility]. Requested that [facility], notify [facility] of DC and fax necessary clinical information and orders. [facility] staff often have access to DC summary. Pt remains aware and agreeable to DCP. RN from [facility] will be visiting pt in this afternoon before her DC home. According to Dr Lozoya, wound care ostomy appliance will be removed and pt has a very small wound that will not require HH healthcare consultant management. This will be shared w/pt. F/u will be recommended through the surgeon's office if any complications with this wound site arise. Reviewed above w/JUNIOR Short this afternoon. P: DC home w/family, resumption of [facility] service for TPN and new IV abx through 10.15.18. F/u w/ [facility] likely w/in the week for surgical consult/preparations (per pt's report). BRENDAN Verde
--- NOTE | 2018-10-12 17:51 | PC.NURSE ---
Evening shift Pt was givben discharge paperwork and teaching. Educational materials on VTE were given to patient. Ostomy appliance was removed from midline surgical wound and coversite dressing was applied. Pt informed this RN that her Morphine prescription was and promotional demonstrator doc gave prescription to patient. Pt ambulated to w/c and was a/o x 3 upon discharge. Family present at discharge. [facility] nurse came to go over infusion protocol with pt. pt left room 229 at 1755 via w/c.
== END 2018-10-12 17:55 | disposition home health service (06) | DRG 247 ==
LOC: ED 23:43 → AC 09-27 00:03 → ICU 10-04 14:04 → AC 10-08 14:01
PROVIDERS: Surgery; Admitting Provider Surgery; Emergency Provider Emergency Medicine; Visit Provider Surgery
DX: K56.51 Intestinal adhesions [bands], with partial obstruction (principal); K65.1 Peritoneal abscess; E43 Unspecified severe protein-calorie malnutrition; I82.621 Acute embolism and thrombosis of deep veins of right upper extremity; T82.868A Thrombosis due to vascular prosthetic devices, implants and grafts, initial encounter; R78.81 Bacteremia; K63.2 Fistula of intestine; F41.9 Anxiety disorder, unspecified; E66.01 Morbid (severe) obesity due to excess calories; Z68.41 Body mass index [BMI] 40.0-44.9, adult; I10 Essential (primary) hypertension; B95.61 Methicillin susceptible Staphylococcus aureus infection as the cause of diseases classified elsewhere; L03.311 Cellulitis of abdominal wall; Z87.891 Personal history of nicotine dependence
CPT/HCPCS: 36415; 36569; 36592; 71045; 71260; 74019; 74176; 74177; 80048; 80053; 80202; 81001; 82962; 83605; 83690; 83735; 84134; 84145; 85025; 85610; 87040; 87070; 87075; 87077; 87150; 87186; 87205; 87797; 93306; 93971; 96361; 96374; 96375; 96376; 99283; 99285; B4189; J0690; J1170; J1642; J1650; J1956; J2060; J2405; J3430; J3480; Q9967

== ENCOUNTER 2018-10-17 21:33 | Emergency (ER) | payer OTHER, MEDICAID, SELFPAY ==
[2018-09-27 01:37] VITALS: BMI 40.0
[2018-10-17 21:38] VITALS: BP 141/98; PULSE 102; RESP 20; TEMP 36.6; O2SAT 93; BMI 39.4
--- NOTE | 2018-10-17 21:58 | PC.NURSE ---
Pt states PICC Line site to right upper extremity is painful and swollen. Reports site was checked and working earlier today by home infusion team. States that she was discharged from hospital last [place] for bowel obstruction but was told she had a DVT in Right arm. PT arm appears to have small area of swelling around PICC line site. Denies fever.
--- NOTE | 2018-10-17 22:29 | ED.SKABFB ---
HPI - Skin/Abscess/Foreign Bdy General Chief complaint: Skin/Abscess/Foreign Body Stated complaint: ISSUES WITH PICC LINE Time Seen by Provider: 10/17/18 22:29 Source: patient Mode of arrival: ambulatory Limitations: no limitations History of Present Illness HPI narrative: Patient is a 53-year-old female with PICC line presenting with right arm pain and swelling. She was admitted to the hospital September 26 through October 12 during that hospital stay her left PICC line was removed and a new 1 was placed. She developed a DVT around the is PICC line. She was supposed to be discharged home on Eliquis according to discharge instructions however patient is sure that she is not taking that medication. She has been getting her IV antibiotics but she says she is not on a blood thinner, although discharge paperwork shows a new prescription for Eliquis. She has had increased swelling and pain at the PICC site. It is not red or swollen. She finished her IV antibiotics 2 days ago. She says that her abdomen is doing much better. Now complaining of pain at the PICC site. She denies any chest pain shortness of breath. No other signs or symptoms. Related Data Home Medications Medication Instructions Recorded Confirmed acetaminophen 325 mg PO Q6HR PRN 09/06/18 10/15/18 meclizine 25 mg PO TID PRN 09/06/18 10/15/18 Previous Rx's Medication Instructions Recorded citalopram 20 mg PO DAILY #30 tab 09/13/18 lisinopril 10 mg PO BEDTIME #30 tab 09/13/18 lorazepam 1 mg PO Q4HR PRN #30 tab 09/13/18 ondansetron 4 mg SUBLINGUAL Q4HR PRN #30 tab 09/13/18 pantoprazole 40 mg PO DAILY #30 tab 09/13/18 promethazine 25 mg PO Q6H PRN #10 tab 09/13/18 docusate sodium 100 mg PO BID 60 Days #120 cap 10/12/18 morphine 15 mg PO Q12H PRN #30 tab 10/12/18 lorazepam 1 mg tablet 1 mg PO Q4-6H PRN #30 tab 10/17/18 apixaban [Eliquis] 5 mg PO BID #60 tab 10/18/18 Allergies Allergy/AdvReac Type Severity Reaction Status Date / Time Penicillins Allergy Intermediate Hives Verified 10/15/18 15:44 ranitidine [From Zantac] Allergy Intermediate Hives Verified 10/15/18 15:44 Review of Systems Review of Systems ROS Unobtainable: All systems reviewed & are unremarkable except as noted in HPI and below Constitutional Denies chills, Denies fever(s), Denies lethargy and Denies weakness Eyes Denies change in vision, Denies eye discharge, Denies irritation and Denies loss of vision ENT Ears, Nose, Mouth, and Throat: Denies change in voice, Denies neck pain and Denies sore throat Cardiovascular Denies chest pain, Denies irregular heart rhythm, Denies lightheadedness, Denies palpitations, Denies dyspnea, Denies dyspnea on exertion and Denies orthopnea Respiratory Denies cough, Denies dyspnea, Denies dyspnea on exertion and Denies wheezing Gastrointestinal Gastrointestinal: Denies abdominal pain, Denies change in bowel habits, Denies diarrhea, Denies nausea and Denies vomiting Genitourinary Denies hematuria, Denies flank pain, Denies urinary incontinence and Denies urinary urgency Musculoskeletal Denies neck pain Integumentary/Breasts Reports as per HPI Neurologic Denies loss of vision and Denies weakness Endocrine Denies palpitations Allergic/Immunologic Denies wheezing [facility] Medical History DVT (deep venous thrombosis) (Acute) Anxiety disorder (Acute) Morbid obesity with BMI of 45.0-49.9, adult (Acute) Small bowel obstruction due to adhesions (Acute) HTN (hypertension) (Chronic) Migraine (Chronic) Postoperative ileus (Resolved) Surgical History Status post exploratory laparotomy (Acute) Status post appendectomy (Resolved) Status post hysterectomy (Resolved) Family History Mother Hypertension Diabetes mellitus Father Cancer Social History household members: significant other, family and children Smoking Status: Former smoker Family History Mother Hypertension Diabetes mellitus Father Cancer Social History household members: significant other, family and children Smoking Status: Former smoker Exam Initial Vital Signs Initial Vital Signs: Vital Signs Temperature 98 F 10/17/18 21:38 Pulse Rate 102 H 10/17/18 21:38 Respiratory Rate 20 10/17/18 21:38 Blood Pressure 141/98 H 10/17/18 21:38 Pulse Oximetry 93 10/17/18 21:38 GENERAL: Alert well-appearing female no distress HEENT: Head atraumatic,EOMI, pupils reactive CARDIOVASCULAR: Regular rate and rhythm without murmurs, rubs or gallops. RESPIRATORY: Breath sounds equal bilaterally, no wheezes rales or rhonchi. ABDOMEN: Soft, nontender. Normoactive bowel sounds all 4 quadrants. No guarding or rebound. EXTREMITIES: Normal range of motion, no clubbing or edema. Neurovascularly intact NEUROLOGICAL: Alert and oriented x4.Normal gait and speech. SKIN: Warm, dry, no laceration, no petechiae, no rashes or lesions. PICC line noted right arm and minimal swelling no erythema Course Orders Ordered: ED Orders 10/17/18 22:47 US periph venous up extrem rt Stat 10/17/18 22:49 XR chest 1V Stat Discontinued Medications Apixaban (Eliquis) 10 mg PO NOW ONE Stop: 10/18/18 00:08 Last Admin: 10/18/18 00:19 Dose: 10 mg Vital Signs - 8 hr 10/17/18 21:38 10/18/18 00:30 Temperature 98 F Pulse Rate 102 H 76 Respiratory Rate 20 18 Blood Pressure 141/98 H 145/87 H Pulse Oximetry 93 97 MDM - Skin/Abscess/Foreign Bdy Imaging Data Chest x-ray: Attestation: I personally reviewed and interpreted this imaging study as follows: My impression: PICC line in place no curling, lungs clear bilaterally no acute process Venous US: Radiologist's impression: shift supervisor rn report: Thrombus noted in brachial vein at the antecubital fossa surrounding the PICC line. No other thrombus noted. [facility] Narrative Medical decision making narrative: The patient is given dose of Eliquis. She has a DVT at the site of insertion have PICC line. Which is where she has some discomfort. She has not been on Eliquis for a few days. Her pharmacy is [facility] however she is adamant that [facility] does not have a prescription of Eliquis despite it being written on her discharge. she is given a new prescription. She has no appointment with her surgeon at [facility] on Monday which is in 5 days I told her she needed a refill of Eliquis and needs to be on it for 6 months Discharge Plan Departure Patient Disposition: Home Clinical Impression: Acute deep vein thrombosis (DVT) of brachial vein Qualifiers: Laterality: right Qualified Code(s): I82.621 - Acute embolism and thrombosis of deep veins of right upper extremity Discharge Date/Time: 10/18/18 00:30 Interventions: ED Discharge Assessment Last Done: 10/18/18 00:30 Instructions: DI for Deep Vein Thrombosis Activity Restrictions/Additional Instructions: *You have been diagnosed with right upper extremity DVT *What to do: *Continue to take medications as directed Eliquis 5 mg twice a day--you will need to be on this for 6 months, please see your PCP surgeon or refill. *Follow up with your primary care provider in 2-3 days *Return to ER if you should have redness, fever, with, numbness or tingling or any new, worsening or concerning symptoms Prescriptions: New Eliquis 5 mg tablet 5 mg PO BID Qty: 60 RF: 0 No Action lorazepam [Ativan] 1 mg tablet 1 mg PO Q4-6H PRN (Reason: anxiety) Qty: 30 RF: 1 meclizine 25 mg tablet 25 mg PO TID PRN (Reason: Dizziness) RF: 0 acetaminophen 325 mg tablet 325 mg PO Q6HR PRN (Reason: As Needed For Fever/Mild Pain) RF: 0 pantoprazole 40 mg tablet,delayed release (DR/EC) 40 mg PO DAILY Qty: 30 RF: 1 promethazine 25 mg tablet 25 mg PO Q6H PRN (Reason: nausea and vomiting) Qty: 10 RF: 0 lorazepam 1 mg tablet 1 mg PO Q4HR PRN (Reason: Anxiety) Qty: 30 RF: 1 ondansetron 4 mg Tablet,Disintegrating 4 mg Sublingual Q4HR PRN (Reason: Nausea) Qty: 30 RF: 0 citalopram 20 mg Tablet 20 mg PO DAILY Qty: 30 RF: 1 lisinopril 10 mg tablet 10 mg PO BEDTIME Qty: 30 RF: 0 docusate sodium 100 mg capsule 100 mg PO BID 60 Days Qty: 120 RF: 0 morphine 15 mg tablet 15 mg PO Q12H PRN (Reason: pain) Qty: 30 RF: 0
--- NOTE | 2018-10-17 22:32 | ED_ITS ---
HPI - Skin/Abscess/Foreign Bdy General Chief complaint: Skin/Abscess/Foreign Body Stated complaint: ISSUES WITH PICC LINE Time Seen by Provider: 10/17/18 22:29 Source: patient Mode of arrival: ambulatory Limitations: no limitations History of Present Illness HPI narrative: Patient is a 53-year-old female with PICC line presenting with right arm pain and swelling. She was admitted to the hospital September 26 throug h October 12 during that hospital stay her left PICC line was removed and a new 1 was placed. She developed a DVT around the is PICC line. She was supposed to be discharged home on Eliquis according to discharge instructions however patient is sure that she is not taking that medication. She has been getting her IV antibiotics but she says she is not on a blood thinner, although discharge paperwork shows a new prescription for Eliquis. She has had increased swelling and pain at the PICC site. It is not red or swollen. She finished her IV antibiotics 2 days ago. She says that her abdomen is doing much better. Now complaining of pain at the PICC site. She denies any chest pain shortness of breath. No other signs or symptoms. Related Data Home Medications Medication Instructions Recorded Confirmed acetaminophen 325 mg PO Q6HR PRN 09/06/18 10/15/18 meclizine 25 mg PO TID PRN 09/06/18 10/15/18 Previous Rx's Medication Instructions Recorded citalopram 20 mg PO DAILY #30 tab 09/13/18 lisinopril 10 mg PO BEDTIME #30 tab 09/13/18 lorazepam 1 mg PO Q4HR PRN #30 tab 09/13/18 ondansetron 4 mg SUBLINGUAL Q4HR PRN #30 tab 09/13/18 pantoprazole 40 mg PO DAILY #30 tab 09/13/18 promethazine 25 mg PO Q6H PRN #10 tab 09/13/18 docusate sodium 100 mg PO BID 60 Days #120 cap 10/12/18 morphine 15 mg PO Q12H PRN #30 tab 10/12/18 lorazepam 1 mg tablet 1 mg PO Q4-6H PRN #30 tab 10/17/18 apixaban [Eliquis] 5 mg PO BID #60 tab 10/18/18 Allergies Allergy/AdvReac Type Severity Reaction Status Date / Time Penicillins Allergy Intermediate Hives Verified 10/15/18 15:44 ranitidine [From Zantac] Allergy Intermediate Hives Verified 10/15/18 15:44 Review of Systems Review of Systems ROS Unobtainable: All systems reviewed & are unremarkable except as noted in HPI and below Constitutional Denies chills, Denies fever(s), Denies lethargy and Denies weakness Eyes Denies change in vision, Denies eye discharge, Denies irritation and Denies loss of vision ENT Ears, Nose, Mouth, and Throat: Denies change in voice, Denies neck pain and Denies sore throat Cardiovascular Denies chest pain, Denies irregular heart rhythm, Denies lightheadedness, Denies palpitations, Denies dyspnea, Denies dyspnea on exertion and Denies orthopnea Respiratory Denies cough, Denies dyspnea, Denies dyspnea on exertion and Denies wheezing Gastrointestinal Gastrointestinal: Denies abdominal pain, Denies change in bowel habits, Denies diarrhea, Denies nausea and Denies vomiting Genitourinary Denies hematuria, Denies flank pain, Denies urinary incontinence and Denies urinary urgency Musculoskeletal Denies neck pain Integumentary/Breasts Reports as per HPI Neurologic Denies loss of vision and Denies weakness Endocrine Denies palpitations Allergic/Immunologic Denies wheezing [facility] Medical History DVT (deep venous thrombosis) (Acute) Anxiety disorder (Acute) Morbid obesity with BMI of 45.0-49.9, adult (Acute) Small bowel obstruction due to adhesions (Acute) HTN (hypertension) (Chronic) Migraine (Chronic) Postoperative ileus (Resolved) Surgical History Status post exploratory laparotomy (Acute) Status post appendectomy (Resolved) Status post hysterectomy (Resolved) Family History Mother Hypertension Diabetes mellitus Father Cancer Social History household members: significant other, family and children Smoking Status: Former smoker Family History Mother Hypertension Diabetes mellitus Father Cancer Social History household members: significant other, family and children Smoking Status: Former smoker Exam Initial Vital Signs Initial Vital Signs: Vital Signs Temperature 98 F 10/17/18 21:38 Pulse Rate 102 H 10/17/18 21:38 Respiratory Rate 20 10/17/18 21:38 Blood Pressure 141/98 H 10/17/18 21:38 Pulse Oximetry 93 10/17/18 21:38 GENERAL: Alert well-appearing female no distress HEENT: Head atraumatic,EOMI, pupils reactive CARDIOVASCULAR: Regular rate and rhythm without murmurs, rubs or gallops. RESPIRATORY: Breath sounds equal bilaterally, no wheezes rales or rhonchi. ABDOMEN: Soft, nontender. Normoactive bowel sounds all 4 quadrants. No guarding or rebound. EXTREMITIES: Normal range of motion, no clubbing or edema. Neurovascularly intact NEUROLOGICAL: Alert and oriented x4.Normal gait and speech. SKIN: Warm, dry, no laceration, no petechiae, no rashes or lesions. PICC line noted right arm and minimal swelling no erythema Course Orders Ordered: ED Orders 10/17/18 22:47 US periph venous up extrem rt Stat 10/17/18 22:49 XR chest 1V Stat Discontinued Medications Apixaban (Eliquis) 10 mg PO NOW ONE Stop: 10/18/18 00:08 Last Admin: 10/18/18 00:19 Dose: 10 mg Vital Signs - 8 hr 10/17/18 21:38 10/18/18 00:30 Temperature 98 F Pulse Rate 102 H 76 Respiratory Rate 20 18 Blood Pressure 141/98 H 145/87 H Pulse Oximetry 93 97 MDM - Skin/Abscess/Foreign Bdy Imaging Data Chest x-ray: Attestation: I personally reviewed and interpreted this imaging study as follows: My impression: PICC line in place no curling, lungs clear bilaterally no acute process Venous US: Radiologist's impression: shift mgr report: Thrombus noted in brachial vein at the antecubital fossa surrounding the PICC line. No other thrombus noted. [facility] Narrative Medical decision making narrative: The patient is given dose of Eliquis. She has a DVT at the site of insertion have PICC line. Which is where she has some discomfort. She has not been on Eliquis for a few days. Her pharmacy is [facility] however she is adamant that [facility] does not have a prescription of Eliquis despite it being written on her discharge. she is given a new prescription. She has no appointment with her surgeon at [facility] on Monday which is in 5 days I told her she needed a refill of Eliquis and needs to be on it for 6 months Discharge Plan Departure Patient Disposition: Home Clinical Impression: Acute deep vein thrombosis (DVT) of brachial vein Qualifiers: Laterality: right Qualified Code(s): I82.621 - Acute embolism and thrombosis of deep veins of right upper extremity Discharge Date/Time: 10/18/18 00:30 Interventions: ED Discharge Assessment Last Done: 10/18/18 00:30 Instructions: DI for Deep Vein Thrombosis Activity Restrictions/Additional Instructions: *You have been diagnosed with right upper extremity DVT *What to do: *Continue to take medications as directed Eliquis 5 mg twice a day--you will need to be on this for 6 months, please see your PCP surgeon or refill. *Follow up with your primary care provider in 2-3 days *Return to ER if you should have redness, fever, with, numbness or tingling or any new, worsening or concerning symptoms Prescriptions: New Eliquis 5 mg tablet 5 mg PO BID Qty: 60 RF: 0 No Action lorazepam [Ativan] 1 mg tablet 1 mg PO Q4-6H PRN (Reason: anxiety) Qty: 30 RF: 1 meclizine 25 mg tablet 25 mg PO TID PRN (Reason: Dizziness) RF: 0 acetaminophen 325 mg tablet 325 mg PO Q6HR PRN (Reason: As Needed For Fever/Mild Pain) RF: 0 pantoprazole 40 mg tablet,delayed release (DR/EC) 40 mg PO DAILY Qty: 30 RF: 1 promethazine 25 mg tablet 25 mg PO Q6H PRN (Reason: nausea and vomiting) Qty: 10 RF: 0 lorazepam 1 mg tablet 1 mg PO Q4HR PRN (Reason: Anxiety) Qty: 30 RF: 1 ondansetron 4 mg Tablet,Disintegrating 4 mg Sublingual Q4HR PRN (Reason: Nausea) Qty: 30 RF: 0 citalopram 20 mg Tablet 20 mg PO DAILY Qty: 30 RF: 1 lisinopril 10 mg tablet 10 mg PO BEDTIME Qty: 30 RF: 0 docusate sodium 100 mg capsule 100 mg PO BID 60 Days Qty: 120 RF: 0 morphine 15 mg tablet 15 mg PO Q12H PRN (Reason: pain) Qty: 30 RF: 0
--- NOTE | 2018-10-17 22:47 | DI.US.S_ITS ---
PROCEDURE: US [facility] VENOUS UP EXTREM RT INDICATIONS: KNOWN DVT; INCREASED EDEMA TECHNIQUE: Real-time imaging, as well as color and pulse Doppler interrogation, was performed of the right upper extremity deep veins from the inferior neck to the antecubital fossa. COMPARISON: [facility], , [facility] VENOUS EXTREM RT, 10/09/2018, 18:32. FINDINGS: Grossly unchanged deep venous thrombosis surrounding the PICC catheter in the brachial vein Elsewhere, the internal jugular vein, visualized portions of the subclavian vein, axillary veins are free of intraluminal thrombus. Where physically possible, the veins are normally compressible. Color and pulse Doppler demonstrate normal intraluminal flow, with expected phasicity and pulsatility. Additional scanning of the cephalic and basilic veins of the superficial system demonstrate normal compressibility, without thrombus. IMPRESSION: Grossly unchanged right brachial vein deep venous thrombosis, at the level of the PICC line. Recommend clinical correlation to assess patency of the PICC. Dictated by: Eloy Alexis M.D. on 10/18/2018 at 8:15 Approved by: Eloy Alexis M.D. on 10/18/2018 at 8:17
--- NOTE | 2018-10-17 22:49 | DI.RAD.S_ITS ---
PROCEDURE: XR CHEST 1V INDICATIONS: picc placement TECHNIQUE: One view of the chest was acquired. COMPARISON: [facility], , XR CHEST FOR PICC 1V, 10/01/2018, 15:49. FINDINGS: Surgical changes and devices: Right PICC line with the tip projecting in the upper SVC Lungs and pleura: Lungs are clear. No pleural effusions or pneumothorax. Mediastinum: Mediastinal contours appear normal. Heart size is normal. Bones and chest wall: Bilateral shoulder degeneration. Overlying soft tissues appear unremarkable. IMPRESSION: No acute disease. Right PICC line with the tip projecting in the upper SVC. Dictated by: Eloy Alexis M.D. on 10/18/2018 at 7:59 Approved by: Eloy Alexis M.D. on 10/18/2018 at 8:01
[2018-10-18] MEDS: APIXABAN 5 MG TABLET 10 MG PO (00:19)
[2018-10-18 00:30] VITALS: BP 145/87; PULSE 76; RESP 18; O2SAT 97
== END 2018-10-18 00:30 | disposition home or self-care (01) ==
PROVIDERS: Emergency Provider Emergency Medicine
DX: I82.621 Acute embolism and thrombosis of deep veins of right upper extremity (principal)
CPT/HCPCS: 71045; 93971; 99282; 99283

== ENCOUNTER 2018-10-20 20:17 | Inpatient (IN) | payer OTHER, MEDICAID, SELFPAY ==
[2018-09-27 01:37] VITALS: BMI 40.0
[2018-10-20 20:24] VITALS: BP 135/95; PULSE 120; RESP 20; TEMP 37.3; O2SAT 99; BMI 39.4
--- NOTE | 2018-10-20 20:45 | ED_ITS ---
HPI - Abdominal Pain General Chief Complaint: Abdominal Pain Stated Complaint: cramping N/V Time Seen by Provider: 10/20/18 20:35 Source: patient Mode of arrival: ambulatory Limitations: no limitations History of Present Illness HPI narrative: Patient is a 53-year-old female known to myself for having multiple small-bowel obstructions. She has a gastrostomy tube in place that is draining to gravity. She also has a right-sided PICC line in place for TPN. I admitted her to the hospital in the middle of last month for similar symptoms that she presented to this evening. She was medically managed for the small- bowel obstruction. She returns this evening for similar symptoms to include abdominal pain and vomiting and minimal output from the G-tube. She states that she has an appointment on Monday with her surgeon down at [facility]. She states that she feels like if she gets her pain under control that she will not need to be admitted to the hospital. Related Data Home Medications Medication Instructions Recorded Confirmed acetaminophen 325 mg PO Q6HR PRN 09/06/18 10/15/18 meclizine 25 mg PO TID PRN 09/06/18 10/15/18 Previous Rx's Medication Instructions Recorded citalopram 20 mg PO DAILY #30 tab 09/13/18 lisinopril 10 mg PO BEDTIME #30 tab 09/13/18 lorazepam 1 mg PO Q4HR PRN #30 tab 09/13/18 ondansetron 4 mg SUBLINGUAL Q4HR PRN #30 tab 09/13/18 pantoprazole 40 mg PO DAILY #30 tab 09/13/18 promethazine 25 mg PO Q6H PRN #10 tab 09/13/18 docusate sodium 100 mg PO BID 60 Days #120 cap 10/12/18 morphine 15 mg PO Q12H PRN #30 tab 10/12/18 lorazepam 1 mg tablet 1 mg PO Q4-6H PRN #30 tab 10/17/18 apixaban [Eliquis] 5 mg PO BID #60 tab 10/18/18 Allergies Allergy/AdvReac Type Severity Reaction Status Date / Time Penicillins Allergy Intermediate Hives Verified 10/15/18 15:44 ranitidine [From Zantac] Allergy Intermediate Hives Verified 10/15/18 15:44 Review of Systems Constitutional Denies fever(s) Cardiovascular Denies chest pain and Denies dyspnea Respiratory Denies dyspnea Gastrointestinal Gastrointestinal: Reports abdominal pain, Reports nausea and Reports vomiting Musculoskeletal Denies myalgias and Denies arthralgias Integumentary/Breasts Denies rash Neurologic Denies behavioral changes Psychiatric Denies behavioral changes Hematologic/Lymphatic Denies easy bleeding and Denies easy bruising [facility] Medical History Anxiety disorder (Acute) DVT (deep venous thrombosis) (Acute) Morbid obesity with BMI of 45.0-49.9, adult (Acute) Small bowel obstruction due to adhesions (Acute) HTN (hypertension) (Chronic) Migraine (Chronic) Postoperative ileus (Resolved) Social History household members: significant other, family and children Smoking Status: Former smoker Exam Initial Vital Signs Initial Vital Signs: Vital Signs Temperature 99.2 F 10/20/18 20:24 Pulse Rate 120 H 10/20/18 20:24 Respiratory Rate 20 10/20/18 20:24 Blood Pressure 135/95 H 10/20/18 20:24 Pulse Oximetry 99 10/20/18 20:24 Const General: No comfortable (Uncomfortable), No acute distress and ill appearing Orientation: alert, awake and oriented x3 HENMT Head: normal to inspection and normocephalic Resp Effort & Inspection: normal respiratory effort Cardio Rate: tachycardic GI Inspection: non-distended Palpation: tender (Diffusely tender) Skin Lesions: no lesions Rashes: no rashes Neuro General: alert and awake Cognition: normal cognition Speech: speech normal Extrem General: normal to inspection and capillary refill normal Psych Appearance: grossly normal and well kempt Course Orders Ordered: ED Orders 10/20/18 20:55 Complete Blood Count AUTO DIFF Stat Comprehensive Metabolic Panel Stat Lactate (Lactic Acid) Stat Lipase Stat Procalcitonin Stat 10/20/18 21:25 Type and Screen Stat 10/20/18 23:59 Lactate (Lactic Acid) Stat 10/21/18 02:34 Consult to General Surgery Routine Hydromorphone HCl (Dilaudid) 2 mg IV Q4HR PRN PRN Reason: Pain, Mild (1-3) Sodium Chloride (Normal Saline 0.9%) 1,000 mls @ 125 mls/hr IV CONT MUKUL Last Infusion: 05/11/19 23:49 Dose: 0 mls/hr Infusion: 10/20/18 22:55 Dose: 999 mls/hr Admin: 10/20/18 21:06 Dose: 125 mls/hr Sodium Chloride (Normal Saline 0.9%) 1,000 mls @ 125 mls/hr IV CONT MUKUL Ondansetron HCl (Zofran) 4 mg IV Q4HR PRN PRN Reason: Nausea And Vomiting Discontinued Medications Hydromorphone HCl (Dilaudid) 2 mg IV NOW ONE Stop: 10/20/18 20:53 Last Admin: 10/20/18 21:05 Dose: 2 mg Hydromorphone HCl (Dilaudid) 1 mg IV NOW ONE Stop: 10/21/18 00:50 Last Admin: 10/21/18 00:58 Dose: 1 mg Hydromorphone HCl (Dilaudid) 1 mg IV NOW ONE Stop: 10/21/18 02:30 Sodium Chloride (Normal Saline 0.9%) 1,000 mls @ 1,000 mls/hr IV BOLUS ONE Stop: 10/20/18 23:44 Last Admin: 10/20/18 23:04 Dose: Not Given Ondansetron HCl (Zofran) 4 mg IV NOW ONE Stop: 10/20/18 20:53 Last Admin: 10/20/18 21:06 Dose: 4 mg Ondansetron HCl (Zofran) 4 mg IV NOW ONE Stop: 10/21/18 02:39 Vital Signs - 8 hr 10/20/18 20:24 10/20/18 21:26 10/20/18 22:30 Temperature 99.2 F Pulse Rate 120 H 111 H 117 H Respiratory Rate 20 14 15 Blood Pressure 135/95 H Blood Pressure [Left Arm] 121/74 132/91 H Pulse Oximetry 99 98 95 10/21/18 02:22 Temperature Pulse Rate 104 H Respiratory Rate 15 Blood Pressure Blood Pressure [Left Arm] 107/68 Pulse Oximetry 95 MDM - Abdominal Pain Lab Data Attestation: I reviewed the patient's lab results. Result diagrams: 10/20/18 20:55 10/20/18 20:55 Lab Results 10/20/18 10/20/18 10/20/18 Range/Units 20:55 20:55 20:55 WBC 12.8 H (4.5-11.0) X10^3/uL RBC 4.85 (4.0-5.2) X10^6/uL Hgb 13.1 (12.0-16.0) g/dL Hct 40.3 (36-46) % MCV 83.0 (80-100) fL MCH 26.9 (26-34) PG MCHC 32.4 (30-36) % RDW 17.5 H (11.6-14.8) % Plt Count 370 (150-400) X10^3/uL Neut % (Auto) 77.6 H (50-75) % Lymph % (Auto) 15.4 L (25-40) % [place] % (Auto) 5.7 (3-14) % Eos % (Auto) 0.4 L (2-4) % Baso % (Auto) 0.9 (0-2) % Neut # (Auto) 29252 H (0084-1171) /uL Lymph # (Auto) 2000 (3932-5956) /uL [place] # (Auto) 700 (0-900) /uL Eos # (Auto) 100 (0-450) /uL Baso # (Auto) 100 (0-100) /uL Sodium 138 (137-145) mmol/L Potassium 3.7 (3.4-5.1) mmol/L Chloride 101 (98-107) mmol/L Carbon Dioxide 20 L (22-32) mmol/L BUN 28 H (7-17) mg/dL Creatinine 0.90 (0.52-1.04) mg/dL Estimated GFR > 60.0 (>60) mL/min BUN/Creatinine Ratio 31.1 H (6-22) Glucose 165 H (70-100) mg/dL Lactate (0.7-2.1) mmol/L Calcium 10.7 H (8.4-10.2) mg/dL Total Bilirubin 0.5 (0.2-1.3) mg/dL AST 30 (14-36) IU/L ALT 18 (9-52) IU/L Alkaline Phosphatase 109 (38-126) U/L Total Protein 8.9 H (6.3-8.2) g/dL Albumin 4.3 (3.5-5.0) g/dL Globulin 4.6 H (1.7-4.1) g/dL Albumin/Globulin Ratio 0.9 L (1.0-2.8) Lipase 109 (23-300) U/L Procalcitonin < 0.05 (<0.5) ng/mL Blood Type Antibody Screen 10/20/18 10/20/18 10/20/18 Range/Units 20:55 21:25 23:59 WBC (4.5-11.0) X10^3/uL RBC (4.0-5.2) X10^6/uL Hgb (12.0-16.0) g/dL Hct (36-46) % MCV (80-100) fL MCH (26-34) PG MCHC (30-36) % RDW (11.6-14.8) % Plt Count (150-400) X10^3/uL Neut % (Auto) (50-75) % Lymph % (Auto) (25-40) % [place] % (Auto) (3-14) % Eos % (Auto) (2-4) % Baso % (Auto) (0-2) % Neut # (Auto) (3641-0383) /uL Lymph # (Auto) (2151-5710) /uL [place] # (Auto) (0-900) /uL Eos # (Auto) (0-450) /uL Baso # (Auto) (0-100) /uL Sodium (137-145) mmol/L Potassium (3.4-5.1) mmol/L Chloride (98-107) mmol/L Carbon Dioxide (22-32) mmol/L BUN (7-17) mg/dL Creatinine (0.52-1.04) mg/dL Estimated GFR (>60) mL/min BUN/Creatinine Ratio (6-22) Glucose (70-100) mg/dL Lactate 2.7 H 1.4 (0.7-2.1) mmol/L Calcium (8.4-10.2) mg/dL Total Bilirubin (0.2-1.3) mg/dL AST (14-36) IU/L ALT (9-52) IU/L Alkaline Phosphatase (38-126) U/L Total Protein (6.3-8.2) g/dL Albumin (3.5-5.0) g/dL Globulin (1.7-4.1) g/dL Albumin/Globulin Ratio (1.0-2.8) Lipase (23-300) U/L Procalcitonin (<0.5) ng/mL Blood Type AB Positive Antibody Screen Negative MDM Narrative Medical decision making narrative: Patient was given pain medication and nausea medication upon arrival. Her tachycardia did improve somewhat however her abdominal pain returned. She has diffuse abdominal pain. The G-tube appears to be in place. The right upper extremity PICC line appears to be in place. She does have a elevated white blood cell count. Did have an elevated lactate however this did improve with IV fluids. I did not obtain a CT scan today laila use her symptoms are consistent with her small bowel obstruction. The last time this happened she was medically managed. Patient is unable to be discharged home secondary to her lack of pain control after multiple doses of pain medication. I did discuss the case with Dr. Li with General surgery at the [facility] states that they would not operate on her if she came down there and they stated that they could get her a ?priority ?appointment with her general surgeon after she is discharged from our facility. I did discuss the case with Dr. Cantu with General surgery here at this facility who will admit. Discussed admission with the patient. She expressed understanding and agreement. Discharge Plan Departure Patient Disposition: Admitted As Inpatient Clinical Impression: Small bowel obstruction Abdominal pain Qualifiers: Abdominal location: generalized Qualified Code(s): R10.84 - Generalized abdominal pain Admit Date/Time: 10/21/18 02:40 Admit Provider: Jarocho Cantu
[2018-10-20] MEDS: HYDROMORPHONE 1 MG INJ 2 MG IV (21:05)
[2018-10-20] MEDS: ONDANSETRON 4 MG/2 ML INJ IV (21:06)
[2018-10-20] MEDS: SODIUM CHLORIDE 0.9% 1,000 ML 125 ML IV (21:06)
[2018-10-20 21:26] VITALS: BP 121/74; PULSE 111; RESP 14; O2SAT 98
[2018-10-20 21:26] LABS: Add Manual Diff / Slide Review NO; Basophils Absolute Auto 100 /uL (0-100); Basophils Percent Auto 0.9 % (0-2); Eosinophils Absolute Auto 100 /uL (0-450); Eosinophils Percent Auto 0.4 % (2-4); Hematocrit 40.3 % (36-46); Hemoglobin 13.1 g/dL (12.0-16.0); Lymphocytes Absolute Auto 2000 /uL (1100-4500); Lymphocytes Percent Auto 15.4 % (25-40); Mean Corpuscular HGB Conc 32.4 % (30-36); Mean Corpuscular Hemoglobin 26.9 PG (26-34); Monocytes Absolute Auto 700 /uL (0-900); Monocytes Percent Auto 5.7 % (3-14); Neutrophils Absolute Auto 10000 /uL (1500-7000); Neutrophils Percent Auto 77.6 % (50-75); Platelet Count 370 X10^3/uL (150-400); Red Blood Cell Count 4.85 X10^6/uL (4.0-5.2); Red Cell Distribution Width 17.5 % (11.6-14.8); White Blood Cell Count 12.8 X10^3/uL (4.5-11.0)
[2018-10-20 21:33] LABS: Lactate (Lactic Acid) 2.7 mmol/L (0.7-2.1)
[2018-10-20 21:38] LABS: Alanine Aminotransferase 18 IU/L (9-52); Albumin 4.3 g/dL (3.5-5.0); Albumin Globulin Ratio 0.9 (1.0-2.8); Alkaline Phosphatase 109 U/L (38-126); Aspartate Aminotransferase 30 IU/L (14-36); BUN Creatinine Ratio 31.1 (6-22); Bilirubin Total 0.5 mg/dL (0.2-1.3); Blood Urea Nitrogen 28 mg/dL (7-17); Calcium 10.7 mg/dL (8.4-10.2); Carbon Dioxide 20 mmol/L (22-32); Chloride 101 mmol/L (98-107); Estimated Glomerular Filt Rate > 60.0 mL/min (>60); Globulin 4.6 g/dL (1.7-4.1); Glucose 165 mg/dL (70-100); HEMOLYSIS < 15 (0-50); Lipase 109 U/L (23-300); Potassium 3.7 mmol/L (3.4-5.1); Sodium 138 mmol/L (137-145); Total Protein 8.9 g/dL (6.3-8.2)
[2018-10-20 21:54] LABS: Procalcitonin < 0.05 ng/mL (<0.5)
[2018-10-20 22:30] VITALS: BP 132/91; PULSE 117; RESP 15; O2SAT 95
[2018-10-20 23:20] LABS: Reflexed Lactate in 2 Hours Y
[2018-10-21] VITALS (8 sets, daily range): BP systolic 101–124; BP diastolic 63–79; PULSE 80–104; RESP 12–17; TEMP 36.6–36.9; O2SAT 95–98; BMI 39.4
[2018-10-21 00:22] LABS: Lactate (Lactic Acid) 1.4 mmol/L (0.7-2.1)
[2018-10-21] MEDS: HYDROMORPHONE 1 MG INJ IV ×2 (00:58→02:39)
[2018-10-21] MEDS: ONDANSETRON 4 MG/2 ML INJ IV ×2 (02:40→07:45)
[2018-10-21] MEDS: SODIUM CHLORIDE 0.9% 1,000 ML 125 ML IV (04:03)
[2018-10-21] MEDS: HYDROMORPHONE 2 MG INJ IV (06:58)
--- NOTE | 2018-10-21 09:39 | PM.HP.1 ---
History of Present Illness Date Patient Seen: 10/21/18 Time Patient Seen: 09:39 Chief complaint: cramping N/V Narrative: 53-year-old white female patient very well known to this hospital. She was operated in April of 2018 and again in June of 2018 for small bowel obstruction. 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 She has been in hospitalized numerous times for crampy abdominal pain nausea and vomiting and she comes in again today with the same complex of symptoms. She has been seen in the surgery department of the [facility] and they would like to wait until December to explore her abdomen to correct what appears to be a partial chronic small bowel obstruction. I tried to get her admitted there last night when she came to the emergency room here however Dr. Li refused at the [facility] to except the patient. she actually has an appointment there tomorrow which of course she will miss. Patient History Medical History Anxiety disorder (Acute) DVT (deep venous thrombosis) (Acute) Morbid obesity with BMI of 45.0-49.9, adult (Acute) Small bowel obstruction due to adhesions (Acute) HTN (hypertension) (Chronic) Migraine (Chronic) Postoperative ileus (Resolved) Surgical History Status post exploratory laparotomy (Acute) Status post appendectomy (Resolved) Status post hysterectomy (Resolved) Family History Mother Hypertension Diabetes mellitus Father Cancer Social History household members: significant other, family and children Smoking Status: Former smoker Family & Social History Family History Mother Hypertension Diabetes mellitus Father Cancer Social History: household members significant other,family,children Safety & Behavioral: Feels Safe in Current Yes Environment Suicidal Ideation Description None Suicide Plan Description No Plan Tobacco & Substance use: Smoking Status Former smoker alcohol intake frequency holiday/special occasion Substance Use Type does not use Meds Home Medications Medication Instructions Recorded Confirmed Type acetaminophen 325 mg PO Q6HR PRN 09/06/18 10/21/18 History meclizine 25 mg PO TID PRN 09/06/18 10/21/18 History citalopram 20 mg PO DAILY #30 tab 09/13/18 10/21/18 Rx lisinopril 10 mg PO BEDTIME #30 tab 09/13/18 10/21/18 Rx lorazepam 1 mg PO Q4HR PRN #30 tab 09/13/18 10/21/18 Rx ondansetron 4 mg SUBLINGUAL Q4HR PRN #30 tab 09/13/18 10/21/18 Rx pantoprazole 40 mg PO DAILY #30 tab 09/13/18 10/21/18 Rx promethazine 25 mg PO Q6H PRN #10 tab 09/13/18 10/21/18 Rx docusate sodium 100 mg PO BID 60 Days #120 cap 10/12/18 10/21/18 Rx morphine 15 mg PO Q12H PRN #30 tab 10/12/18 10/21/18 Rx lorazepam 1 mg tablet 1 mg PO Q4-6H PRN #30 tab 10/17/18 10/21/18 Rx apixaban [Eliquis] 5 mg PO BID #60 tab 10/18/18 10/21/18 Rx Allergies Allergy/AdvReac Type Severity Reaction Status Date / Time Penicillins Allergy Intermediate Hives Verified 10/15/18 15:44 ranitidine [From Zantac] Allergy Intermediate Hives Verified 10/15/18 15:44 Review of Systems Review of Systems All systems reviewed & are unremarkable except as noted in HPI and below Exam Vital Signs (past 8 hours): - 10/21/18 02:22 10/21/18 02:56 10/21/18 03:20 Temperature 98 F Pulse Rate 104 H 95 H 89 Respiratory Rate 15 12 16 Blood Pressure 121/79 Blood Pressure [Left Arm] 107/68 117/73 Pulse Oximetry 95 96 98 10/21/18 07:27 Temperature 98.4 F Pulse Rate 83 Respiratory Rate 16 Blood Pressure 101/71 Blood Pressure [Left Arm] Pulse Oximetry 96 Oxygen Delivery Method Room Air Oxygen Flow Rate 0 Narrative Exam Narrative: Patient is afebrile alert and oriented. complaining of crampy abdominal pain. Lungs have distant breath sounds but no audible rales. Heart regular rhythm no murmur no gallop Abdomen is somewhat distended. Diffuse mild tenderness. there is a gastrostomy in place and functioning. 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 there is mild cellulitis there. Remaining physical is unremarkable. Objective Labs Result Diagrams: 10/20/18 20:55 10/20/18 20:55 Labs: Laboratory Results - last 24 hr 10/20/18 10/20/18 10/20/18 20:55 20:55 20:55 WBC 12.8 H RBC 4.85 Hgb 13.1 Hct 40.3 MCV 83.0 MCH 26.9 MCHC 32.4 RDW 17.5 H Plt Count 370 Neut % (Auto) 77.6 H Lymph % (Auto) 15.4 L [place] % (Auto) 5.7 Eos % (Auto) 0.4 L Baso % (Auto) 0.9 Neut # (Auto) 80714 H Lymph # (Auto) 2000 [place] # (Auto) 700 Eos # (Auto) 100 Baso # (Auto) 100 Sodium 138 Potassium 3.7 Chloride 101 Carbon Dioxide 20 L BUN 28 H Creatinine 0.90 Estimated GFR > 60.0 BUN/Creatinine Ratio 31.1 H Glucose 165 H Lactate Calcium 10.7 H Total Bilirubin 0.5 AST 30 ALT 18 Alkaline Phosphatase 109 Total Protein 8.9 H Albumin 4.3 Globulin 4.6 H Albumin/Globulin Ratio 0.9 L Lipase 109 Procalcitonin < 0.05 Blood Type Antibody Screen 10/20/18 10/20/18 10/20/18 20:55 21:25 23:59 WBC RBC Hgb Hct MCV MCH MCHC RDW Plt Count Neut % (Auto) Lymph % (Auto) [place] % (Auto) Eos % (Auto) Baso % (Auto) Neut # (Auto) Lymph # (Auto) [place] # (Auto) Eos # (Auto) Baso # (Auto) Sodium Potassium Chloride Carbon Dioxide BUN Creatinine Estimated GFR BUN/Creatinine Ratio Glucose Lactate 2.7 H 1.4 Calcium Total Bilirubin AST ALT Alkaline Phosphatase Total Protein Albumin Globulin Albumin/Globulin Ratio Lipase Procalcitonin Blood Type AB Positive Antibody Screen Negative Assessment & Plan Assessment & Plan narrative: Patient has chronic partial small bowel obstruction. Has a functioning gastrostomy. She needs an exploratory laparotomy probable small bowel resection. This has been scheduled at the [facility] in their department of surgery for about 6 weeks from now. Recently the patient developed a DVT around her PICC line and was started on Eliquis which I have stopped now and just have the patient on Lovenox in case we have to do emergent surgery here. Patient is on home TPN which I have reordered. At this time I do not think she needs an emergent laparotomy. I have ordered plain films of the abdomen to be done later this afternoon.
--- NOTE | 2018-10-21 09:45 | P.HP_ITS ---
History of Present Illness Date Patient Seen: 10/21/18 Time Patient Seen: 09:39 Chief complaint: cramping N/V Narrative: 53-year-old white female patient very well known to this hospital. She was operated in April of 2018 and again in June of 2018 for small bowel obstruction. 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 She has been in hospitalized numerous times for crampy abdominal pain nausea and vomiting and she comes in again today with the same complex of symptoms. She has been seen in the surgery department of the [facility] and they would like to wait until December to explore her abdomen to correct what appears to be a partial chronic small bowel obstruction. I tried to get her admitted there last night when she came to the emergency room here however Dr. Li refused at the [facility] to except the patient. she actually has an appointment there tomorrow which of course she will miss. Patient History Medical History Anxiety disorder (Acute) DVT (deep venous thrombosis) (Acute) Morbid obesity with BMI of 45.0-49.9, adult (Acute) Small bowel obstruction due to adhesions (Acute) HTN (hypertension) (Chronic) Migraine (Chronic) Postoperative ileus (Resolved) Surgical History Status post exploratory laparotomy (Acute) Status post appendectomy (Resolved) Status post hysterectomy (Resolved) Family History Mother Hypertension Diabetes mellitus Father Cancer Social History household members: significant other, family and children Smoking Status: Former smoker Family & Social History Family History Mother Hypertension Diabetes mellitus Father Cancer Social History: household members significant other,family,children Safety & Behavioral: Feels Safe in Current Yes Environment Suicidal Ideation Description None Suicide Plan Description No Plan Tobacco & Substance use: Smoking Status Former smoker alcohol intake frequency holiday/special occasion Substance Use Type does not use Meds Home Medications Medication Instructions Recorded Confirmed Type acetaminophen 325 mg PO Q6HR PRN 09/06/18 10/21/18 History meclizine 25 mg PO TID PRN 09/06/18 10/21/18 History citalopram 20 mg PO DAILY #30 tab 09/13/18 10/21/18 Rx lisinopril 10 mg PO BEDTIME #30 tab 09/13/18 10/21/18 Rx lorazepam 1 mg PO Q4HR PRN #30 tab 09/13/18 10/21/18 Rx ondansetron 4 mg SUBLINGUAL Q4HR PRN #30 tab 09/13/18 10/21/18 Rx pantoprazole 40 mg PO DAILY #30 tab 09/13/18 10/21/18 Rx promethazine 25 mg PO Q6H PRN #10 tab 09/13/18 10/21/18 Rx docusate sodium 100 mg PO BID 60 Days #120 cap 10/12/18 10/21/18 Rx morphine 15 mg PO Q12H PRN #30 tab 10/12/18 10/21/18 Rx lorazepam 1 mg tablet 1 mg PO Q4-6H PRN #30 tab 10/17/18 10/21/18 Rx apixaban [Eliquis] 5 mg PO BID #60 tab 10/18/18 10/21/18 Rx Allergies Allergy/AdvReac Type Severity Reaction Status Date / Time Penicillins Allergy Intermediate Hives Verified 10/15/18 15:44 ranitidine [From Zantac] Allergy Intermediate Hives Verified 10/15/18 15:44 Review of Systems Review of Systems All systems reviewed & are unremarkable except as noted in HPI and below Exam Vital Signs (past 8 hours): - 10/21/18 02:22 10/21/18 02:56 10/21/18 03:20 Temperature 98 F Pulse Rate 104 H 95 H 89 Respiratory Rate 15 12 16 Blood Pressure 121/79 Blood Pressure [Left Arm] 107/68 117/73 Pulse Oximetry 95 96 98 10/21/18 07:27 Temperature 98.4 F Pulse Rate 83 Respiratory Rate 16 Blood Pressure 101/71 Blood Pressure [Left Arm] Pulse Oximetry 96 Oxygen Delivery Method Room Air Oxygen Flow Rate 0 Narrative Exam Narrative: Patient is afebrile alert and oriented. complaining of crampy abdominal pain. Lungs have distant breath sounds but no audible rales. Heart regular rhythm no murmur no gallop Abdomen is somewhat distended. Diffuse mild tenderness. there is a gastrostomy in place and functioning. 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 there is mild cellulitis there. Remaining physical is unremarkable. Objective Labs Result Diagrams: 10/20/18 20:55 10/20/18 20:55 Labs: Laboratory Results - last 24 hr 10/20/18 10/20/18 10/20/18 20:55 20:55 20:55 WBC 12.8 H RBC 4.85 Hgb 13.1 Hct 40.3 MCV 83.0 MCH 26.9 MCHC 32.4 RDW 17.5 H Plt Count 370 Neut % (Auto) 77.6 H Lymph % (Auto) 15.4 L [place] % (Auto) 5.7 Eos % (Auto) 0.4 L Baso % (Auto) 0.9 Neut # (Auto) 48458 H Lymph # (Auto) 2000 [place] # (Auto) 700 Eos # (Auto) 100 Baso # (Auto) 100 Sodium 138 Potassium 3.7 Chloride 101 Carbon Dioxide 20 L BUN 28 H Creatinine 0.90 Estimated GFR > 60.0 BUN/Creatinine Ratio 31.1 H Glucose 165 H Lactate Calcium 10.7 H Total Bilirubin 0.5 AST 30 ALT 18 Alkaline Phosphatase 109 Total Protein 8.9 H Albumin 4.3 Globulin 4.6 H Albumin/Globulin Ratio 0.9 L Lipase 109 Procalcitonin < 0.05 Blood Type Antibody Screen 10/20/18 10/20/18 10/20/18 20:55 21:25 23:59 WBC RBC Hgb Hct MCV MCH MCHC RDW Plt Count Neut % (Auto) Lymph % (Auto) [place] % (Auto) Eos % (Auto) Baso % (Auto) Neut # (Auto) Lymph # (Auto) [place] # (Auto) Eos # (Auto) Baso # (Auto) Sodium Potassium Chloride Carbon Dioxide BUN Creatinine Estimated GFR BUN/Creatinine Ratio Glucose Lactate 2.7 H 1.4 Calcium Total Bilirubin AST ALT Alkaline Phosphatase Total Protein Albumin Globulin Albumin/Globulin Ratio Lipase Procalcitonin Blood Type AB Positive Antibody Screen Negative Assessment & Plan Assessment & Plan narrative: Patient has chronic partial small bowel obstruction. Has a functioning gastrostomy. She needs an exploratory laparotomy probable small bowel resection. This has been scheduled at the [facility] in their department of surgery for about 6 weeks from now. Recently the patient developed a DVT around her PICC line and was started on Eliquis which I have stopped now and just have the patient on Lovenox in case we have to do emergent surgery here. Patient is on home TPN which I have reordered. At this time I do not think she needs an emergent laparotomy. I have ordered plain films of the abdomen to be done later this afternoon.
[2018-10-21] MEDS: ENOXAPARIN 40 MG/0.4 ML SYRINGE SUBCUT (11:22)
[2018-10-21] MEDS: PANTOPRAZOLE 40 MG VIAL IV (11:23)
[2018-10-21] MEDS: LACTATED RINGERS 1,000 ML 50 ML IV (11:24)
[2018-10-21] MEDS: HYDROMORPHONE PCA (6MG/30ML) 6 MG/30 ML PCA.VIAL IV (11:33)
--- NOTE | 2018-10-21 12:05 | PC.NURSE ---
Pt alert and oriented, makes needs and concerns known appropriately. Requests meds as needed. [employer] set up per orders. IV fluis changed per orders. Pt to get TPN as per usual routine this evening. Pt changed to clear liquid.
[2018-10-21] MEDS: LORazepam 2 MG/ML SYRINGE 1 MG IV ×2 (12:41→17:20)
--- NOTE | 2018-10-21 14:00 | DI.RAD.S_ITS ---
PROCEDURE: XR ABDOMEN 3V INDICATIONS: Small bowel obstruction TECHNIQUE: One view chest and two views of the abdomen were acquired. COMPARISON: [facility], CT, CT ABDOMEN PELVIS W CON, 10/10/2018, 11:17. [facility], CR, XR ABDOMEN MIN 2V, 09/26/2018, 7:25. FINDINGS: Surgical changes and devices: A percutaneous gastrostomy tube is seen. Chest: Lungs are clear. Heart size is normal. No pleural effusions. No pneumoperitoneum. Abdomen: Bowel gas pattern is normal. Mild residual contrast can be seen within the ascending colon. No suspicious calcifications. Visualized solid organ contours appear normal. Bones: No suspicious bony lesions. Age-appropriate bony degenerative changes are seen. IMPRESSION: A nonobstructive bowel gas pattern is seen. As clinically appropriate, please consider a repeat plain film study or a dedicated , repeat CT of the abdomen and pelvis, if the patient's symptoms persist or worsen. Gastrostomy tube noted. Dictated by: Dakotah Ghosh M.D. on 10/21/2018 at 9:14 Approved by: Dakotah Ghosh M.D. on 10/21/2018 at 9:15
--- NOTE | 2018-10-21 15:53 | CM.DANOTE ---
DCP Assessment Patient is a 53 year old female who was admitted on 10/21/18 for cramping N/V. Pt has [facility] [facility] and [employer] for insurance. EMR was reviewed. Per MD, when pt admitted to ED they attempted to transfer her to [facility] but they declined. Pt still on TPN and clear liquids and MD getting scan to confirm no emergent surg needed at this time. SW alerted [facility] of pt's admit today and they confirm that pt still receiving home TPN services with them but her IV-Abx were discontinued as they had run their full course. Pt not currently open with and pt had scheduled appointment with [facility] for tomorrow Monday10/25/18 and MD thinks pt likely will have to reschedule as likely will not allow pt to be transferred for that appointment. Plan: SW to follow closely for pt's POC to be determined and keeping [facility] updated on pt status. Margaret Krishnan MSW
[2018-10-21] MEDS: SODIUM CHLORIDE 0.9% IV (18:02)
[2018-10-21] MEDS: CALCIUM IV (18:02)
[2018-10-21] MEDS: LYTES IV (18:02)
[2018-10-21] MEDS: DEXT IV (18:02)
[2018-10-21] MEDS: [UNRECOGNIZED DRUG - OTHER] IV (18:02)
[2018-10-21] MEDS: FAT EMULSIONS 50 GM/250 ML EMULSION IV (18:03)
--- NOTE | 2018-10-21 18:19 | PC.NURSE ---
Evening notes: Carol reported increased nausea earlier, too early to give Ativan per q6 prn order. I notified Dr Cantu who changed order to q4prn. Ativan given, pt reports much better and able to doze intermittently since med given. Using [employer] COMM[employer]IONER as needs for abdomen pain, currently rates pain 4/10. CBG 81 prior to TPN initiation. PICC line to RUE patent, IV fluid pump beeping distal occlusion at times due to PICC position proximal to RAC. Both ports are patent. TPN/Lipids now infusing as ordered. She is tolerating sips of clears, popsicles and juice, otherwise denies much appetite tonight. VS stable, patient remains oriented x 3 & using call button appropriately, instructed to call staff if she needs to get OOB, fall precautions in place.
[2018-10-22] MEDS: LORazepam 2 MG/ML SYRINGE 1 MG IV ×3 (00:03→10:34)
[2018-10-22 04:29] VITALS: BP 101/63; PULSE 80; RESP 17; TEMP 36.7; O2SAT 97
[2018-10-22 06:12] LABS: Add Manual Diff / Slide Review NO; Basophils Absolute Auto 100 /uL (0-100); Basophils Percent Auto 1.8 % (0-2); Eosinophils Absolute Auto 200 /uL (0-450); Eosinophils Percent Auto 3.6 % (2-4); Hematocrit 29.8 % (36-46); Lymphocytes Absolute Auto 1500 /uL (1100-4500); Lymphocytes Percent Auto 34.8 % (25-40); Mean Corpuscular HGB Conc 33.7 % (30-36); Mean Corpuscular Hemoglobin 27.8 PG (26-34); Mean Corpuscular Volume 82.6 fL (80-100); Monocytes Absolute Auto 600 /uL (0-900); Monocytes Percent Auto 13.3 % (3-14); Neutrophils Absolute Auto 2000 /uL (1500-7000); Neutrophils Percent Auto 46.5 % (50-75); Platelet Count 201 X10^3/uL (150-400); Red Blood Cell Count 3.61 X10^6/uL (4.0-5.2); Red Cell Distribution Width 17.4 % (11.6-14.8); White Blood Cell Count 4.2 X10^3/uL (4.5-11.0)
[2018-10-22 06:19] LABS: Blood Urea Nitrogen 24 mg/dL (7-17); Calcium 8.6 mg/dL (8.4-10.2); Carbon Dioxide 30 mmol/L (22-32); Chloride 102 mmol/L (98-107); Estimated Glomerular Filt Rate > 60.0 mL/min (>60); Glucose 124 mg/dL (70-100); HEMOLYSIS < 15 (0-50); Potassium 3.9 mmol/L (3.4-5.1); Sodium 138 mmol/L (137-145)
[2018-10-22] MEDS: HYDROMORPHONE PCA (6MG/30ML) 6 MG/30 ML PCA.VIAL IV (06:40)
[2018-10-22] MEDS: LACTATED RINGERS 1,000 ML 50 ML IV (06:45)
[2018-10-22 07:40] VITALS: BP 127/71; PULSE 83; RESP 16; TEMP 36.8; O2SAT 95
--- NOTE | 2018-10-22 10:06 | PC.NURSE ---
Addendum entered by Karime Stoddard R.N. 10/22/18 14:40: Dr Lozoya into see Pt. With no obstructions, reduction in IV meds and enc mobilization. CONCEPTOR stopped. 1.6mg used. PO Morphine started. Original Note: Am shift 0830-Pt with flat affect, reports I just dont feel well, I would like to stay on my pain meds and rest Refused breakfast (Clear liq) tray, Using light for needs. TPN dosed down and off at start of shift. I will let you finish checking me out later UNable to complete full assessment at this time.
[2018-10-22] MEDS: ENOXAPARIN 100 MG/ML SYRINGE 90 MG SUBCUT ×2 (10:19→21:06)
[2018-10-22] MEDS: PANTOPRAZOLE 40 MG VIAL IV (10:19)
[2018-10-22 11:51] VITALS: BP 131/78; PULSE 82; RESP 16; TEMP 36.9; O2SAT 100
--- NOTE | 2018-10-22 11:51 | PM.PN.1 ---
Subjective Date Patient Seen: 10/22/18 Time Patient Seen: 11:51 Interval history: Readmitted for pain issues. No true obstruction, bowels have been moving. Missing appointment in [place] today. Noted ED visit a few days ago when she said she has not taken her Eliquis since discharge. She called the office about a refill of ativan and tylenol so I asked why she did not call about this and she says she did not think about it. Exam Vital Signs (past 8 hours): - 10/22/18 04:29 10/22/18 07:40 Temperature 98.1 F 98.2 F Pulse Rate 80 83 Respiratory Rate 17 16 Blood Pressure 101/63 127/71 Pulse Oximetry 97 95 Oxygen Delivery Method Room Air Oxygen Flow Rate 0 Narrative Exam Narrative: AAO but barely opens eyes during discussion, NAD, obese female EOMI, no scleral icterus unlabored RA soft, nt/nd; G tube with gastric contents MAEW visible skin dry and intact Objective Labs Result Diagrams: 10/22/18 05:42 10/22/18 05:42 Labs: Laboratory Results - last 24 hr 10/22/18 10/22/18 05:42 05:42 WBC 4.2 L D RBC 3.61 L Hgb 10.0 L Hct 29.8 L MCV 82.6 MCH 27.8 MCHC 33.7 RDW 17.4 H Plt Count 201 Neut % (Auto) 46.5 L D Lymph % (Auto) 34.8 Benzie % (Auto) 13.3 Eos % (Auto) 3.6 Baso % (Auto) 1.8 Neut # (Auto) 2000 Lymph # (Auto) 1500 Benzie # (Auto) 600 Eos # (Auto) 200 Baso # (Auto) 100 Sodium 138 Potassium 3.9 Chloride 102 Carbon Dioxide 30 BUN 24 H Creatinine 0.80 Estimated GFR > 60.0 BUN/Creatinine Ratio 30.0 H Glucose 124 H Calcium 8.6 Assessment & Plan (1) Abdominal pain: Current visit: Yes Status: Acute Assessment & Plan narrative: - worse episode of chronic crampy abd pain - remains with a chronic partial obstruction but no acute changes or obstruction --> has venting G tube - on therapeutic anti-coagulation; pt will go home with Eliquis again and knows to take it and the potential dangers of the DVT - TPN - alerted her [place] surgeon that she will need a new appointment - all IV meds stopped, on home PO morphine and ativan doses - must walk several times today and will go home in the morning, discussed with pt who states understanding
[2018-10-22] MEDS: MORPHINE ER 15 MG TABLET PO ×2 (14:42→21:05)
[2018-10-22 15:40] VITALS: BP 140/74; PULSE 86; RESP 15; TEMP 36.8; O2SAT 98
[2018-10-22] MEDS: LORazepam 1 MG TABLET PO ×2 (16:08→22:02)
[2018-10-22] MEDS: [UNRECOGNIZED DRUG - OTHER] IV (18:00)
[2018-10-22] MEDS: LYTES IV (18:00)
[2018-10-22] MEDS: DEXT IV (18:00)
[2018-10-22] MEDS: SODIUM CHLORIDE 0.9% IV (18:00)
[2018-10-22] MEDS: CALCIUM IV (18:00)
[2018-10-22 18:59] VITALS: BP 119/73; PULSE 90; RESP 16; TEMP 36.7; O2SAT 96
[2018-10-23] VITALS: BP 115/65; PULSE 81; RESP 16; TEMP 37.1; O2SAT 98
[2018-10-23] MEDS: LACTATED RINGERS 1,000 ML 50 ML IV (02:48)
[2018-10-23] MEDS: MORPHINE ER 15 MG TABLET PO (06:02)
[2018-10-23 06:22] VITALS: BP 137/76; PULSE 77; RESP 16; TEMP 36.6; O2SAT 97
[2018-10-23 07:35] VITALS: BP 122/77; PULSE 76; RESP 16; TEMP 36.4; O2SAT 97
--- NOTE | 2018-10-23 08:56 | PM.DS.1 ---
History of Present Illness Date Patient Seen: 10/23/18 Time Patient Seen: 07:56 Chief complaint: cramping N/V Narrative: 53yo F known to practice for chronic abdominal issues. Admitted for pain control due to cramping issues from a chronic partial small bowel obstruction. Discharge Providers Date of admission: 10/21/18 02:40 Discharge Date: 10/23/18 Consults: 10/21/18 02:34 Consult to General Surgery Routine Comment: Consulting Provider: Jarocho Cantu Reason for consultation: admission Has provider been notified: Yes Discharge provider: Suzan Lozoya MD Summary Discharge Diagnosis: 1. chronic partial small bowel obstruction 2. abdominal pain Hospital Course: 53yo F known to practice for chronic abdominal issues. Admitted for pain control due to cramping issues from a chronic partial small bowel obstruction. Improved to baseline quickly and discharged. Reviewed med regimen including Eliquis for provoked DVT of RUE. Has home health already set for long-term TPN use. Patient will call her [place] surgeon to re-set the appointment she missed while here. Status at Discharge Cognitive/behavioral status at discharge: at baseline, oriented Functional status at discharge: independent ambulation Overall status at discharge: patient is back to baseline Time Spent with Patient Less than 30 minutes Exam Vital Signs (past 8 hours): - 10/23/18 06:22 10/23/18 07:35 Temperature 98 F 97.6 F Pulse Rate 77 76 Respiratory Rate 16 16 Blood Pressure 137/76 122/77 Pulse Oximetry 97 97 Oxygen Delivery Method Room Air Oxygen Flow Rate 0 Narrative Exam Narrative: AAO but depressed affect, NAD, obese female EOMI, MMM, no scleral icterus unlabored RA soft, nt/nd; G tube with gastric contents; midline wound with no drainage MAEW visible skin dry and intact Objective Labs Result Diagrams: 10/22/18 05:42 10/22/18 05:42 Discharge Plan Discharge Plan Patient Disposition: Home Discharge Med Rec/Prescriptions Prescriptions: Continued lorazepam [Ativan] 1 mg tablet 1 mg PO Q4-6H PRN (Reason: anxiety) Qty: 30 RF: 1 meclizine 25 mg tablet 25 mg PO TID PRN (Reason: Dizziness) RF: 0 acetaminophen 325 mg tablet 325 mg PO Q6HR PRN (Reason: As Needed For Fever/Mild Pain) RF: 0 pantoprazole 40 mg tablet,delayed release (DR/EC) 40 mg PO DAILY Qty: 30 RF: 1 promethazine 25 mg tablet 25 mg PO Q6H PRN (Reason: nausea and vomiting) Qty: 10 RF: 0 lorazepam 1 mg tablet 1 mg PO Q4HR PRN (Reason: Anxiety) Qty: 30 RF: 1 ondansetron 4 mg Tablet,Disintegrating 4 mg Sublingual Q4HR PRN (Reason: Nausea) Qty: 30 RF: 0 citalopram 20 mg Tablet 20 mg PO DAILY Qty: 30 RF: 1 lisinopril 10 mg tablet 10 mg PO BEDTIME Qty: 30 RF: 0 docusate sodium 100 mg capsule 100 mg PO BID 60 Days Qty: 120 RF: 0 morphine 15 mg tablet 15 mg PO Q12H PRN (Reason: pain) Qty: 30 RF: 0 Eliquis 5 mg tablet 5 mg PO BID Qty: 60 RF: 0 Follow up/Referrals: Edinson Grimes [Other] (Pt missed her appointment with him, to call for new) Provider Discharge Instructions Diet: Clear Liquid Discharge Data Attending Provider: Jarocho Cantu Admit Date/Time: 10/21/18 02:40
[2018-10-23] MEDS: PANTOPRAZOLE 40 MG VIAL IV (09:12)
[2018-10-23] MEDS: ENOXAPARIN 100 MG/ML SYRINGE 90 MG SUBCUT (09:12)
[2018-10-23] MEDS: LORazepam 1 MG TABLET PO (09:12)
--- NOTE | 2018-10-23 10:24 | CM.DPNOTE ---
DCP/continued: Received notification from MD that patient okay to discharge home today. Asked PAPER FINAL INSPECTOR/Alicia to contact [facility] to inform them of d/c and fax needed information. Per notes, patient will be following up with for continued services. P: Home today. BRENDAN Lan
--- NOTE | 2018-10-23 11:05 | CM.DPNOTE ---
DCP/continued: Met briefly with patient to confirm d/c plan today. Patient aware and agreeable. Patient offered [facility] brochure but reports that she does not need. Per patient they are coming tomorrow to drop off TPN. No additional needs identified. PRINCESS/Alicia faxed updated clinical to [facility]. P: Home today. BRENDAN Lan
== END 2018-10-23 11:13 | disposition home or self-care (01) | DRG 247 ==
LOC: ED 10-21 02:34 → AC 10-21 02:41
PROVIDERS: Admitting Provider Surgery; Emergency Provider Emergency Medicine; Visit Provider Surgery
DX: K56.600 Partial intestinal obstruction, unspecified as to cause (principal); Z93.1 Gastrostomy status; E66.01 Morbid (severe) obesity due to excess calories; Z68.39 Body mass index [BMI] 39.0-39.9, adult; Z87.891 Personal history of nicotine dependence; I10 Essential (primary) hypertension; F41.9 Anxiety disorder, unspecified
CPT/HCPCS: 36415; 74021; 80048; 80053; 82962; 83605; 83690; 84145; 85025; 86850; 86900; 86901; 96361; 96374; 96375; 96376; 99283; B4189; C9113; J1170; J1650; J2060; J2405; J3480

== ENCOUNTER 2018-10-24 10:20 | Emergency (ER) | payer OTHER, MEDICAID, SELFPAY ==
[2018-10-21 03:21] VITALS: BMI 39.4
[2018-10-24 10:24] VITALS: BP 188/109; PULSE 110; RESP 24; TEMP 36.9; O2SAT 97; BMI 40.1
[2018-10-24] MEDS: ONDANSETRON 4 MG/2 ML INJ IV (10:41)
[2018-10-24] MEDS: HYDROMORPHONE 1 MG INJ IV (10:41)
--- NOTE | 2018-10-24 10:44 | PC.NURSE ---
Per MD, was just dc'd yesterday and labs done on 10/22. Will medicate pt for pain and nausea
[2018-10-24 11:00] VITALS: BP 136/81; PULSE 98; RESP 15; O2SAT 99
--- NOTE | 2018-10-24 11:33 | PC.NURSE ---
flushed g tube with 40ml water per pts request
--- NOTE | 2018-10-24 11:36 | PC.NURSE ---
Desats to 81%. Placed on 2l nc and MD made aware. States pt with poss sleep apnea. Pain meds route changed
--- NOTE | 2018-10-24 11:37 | ED_ITS ---
HPI - Abdominal Pain General Chief Complaint: Abdominal Pain Stated Complaint: ABDOMINAL CRAMPS,VOMITING RECENTLY DISCHARGED Time Seen by Provider: 10/24/18 10:30 Source: patient Mode of arrival: ambulatory Limitations: no limitations History of Present Illness HPI narrative: Patient presents the emergency department complaining of abdominal cramping and nausea and thinks her G-tube isn't flushing. Patient was just discharged from the hospital yesterday after being admitted for an exacerbation of chronic small bowel obstruction. Patient is well known to our hospital, and has had a complicated course with cyclical vomiting, chronic small bowel obstruction, and chronic abdominal pain with gastrostomy tube for decompression. Patient states that normally, her boyfriend flushes the tube to help decompress the stomach, but he is not here and was not able to do this for her. Patient states the pain and nausea started last night, but she can't get in until today. Related Data Home Medications Medication Instructions Recorded Confirmed acetaminophen 325 mg PO Q6HR PRN 09/06/18 10/24/18 meclizine 25 mg PO TID PRN 09/06/18 10/24/18 lorazepam 1 mg PO Q4-6H PRN 10/24/18 10/24/18 Previous Rx's Medication Instructions Recorded citalopram 20 mg PO DAILY #30 tab 09/13/18 lisinopril 10 mg PO BEDTIME #30 tab 09/13/18 ondansetron 4 mg SUBLINGUAL Q4HR PRN #30 tab 09/13/18 pantoprazole 40 mg PO DAILY #30 tab 09/13/18 promethazine 25 mg PO Q6H PRN #10 tab 09/13/18 docusate sodium 100 mg PO BID 60 Days #120 cap 10/12/18 morphine 15 mg PO Q12H PRN #30 tab 10/12/18 Eliquis 5 mg PO BID #60 tab 10/18/18 Allergies Allergy/AdvReac Type Severity Reaction Status Date / Time Penicillins Allergy Intermediate Hives Verified 10/15/18 15:44 ranitidine [From Zantac] Allergy Intermediate Hives Verified 10/15/18 15:44 Review of Systems Constitutional Denies chills, Denies fever(s), Denies lethargy and Denies weakness Eyes Denies change in vision, Denies eye discharge, Denies irritation and Denies loss of vision ENT Ears, Nose, Mouth, and Throat: Denies change in voice, Denies neck pain and Denies sore throat Cardiovascular Denies chest pain, Denies irregular heart rhythm, Denies lightheadedness, Denies palpitations, Denies dyspnea, Denies dyspnea on exertion and Denies orthopnea Respiratory Denies cough, Denies dyspnea, Denies dyspnea on exertion and Denies wheezing Gastrointestinal Gastrointestinal: Reports abdominal pain, Denies change in bowel habits, Denies diarrhea, Reports nausea and Reports vomiting Genitourinary Denies hematuria, Denies flank pain, Denies urinary incontinence and Denies urinary urgency Musculoskeletal Denies neck pain Integumentary/Breasts Denies pruritus, Denies erythema, Denies rash and Denies wounds Neurologic Denies confusion, Denies loss of vision and Denies weakness Psychiatric Denies anxiety, Denies confusion, Denies depression, Denies homicidal ideation and Denies suicidal ideation Endocrine Denies palpitations Hematologic/Lymphatic Denies easy bruising Allergic/Immunologic Denies wheezing [facility] Medical History Anxiety disorder (Acute) DVT (deep venous thrombosis) (Acute) Morbid obesity with BMI of 45.0-49.9, adult (Acute) Small bowel obstruction due to adhesions (Acute) HTN (hypertension) (Chronic) Migraine (Chronic) Postoperative ileus (Resolved) Surgical History Status post exploratory laparotomy (Acute) Status post appendectomy (Resolved) Status post hysterectomy (Resolved) Family History Mother Hypertension Diabetes mellitus Father Cancer Social History household members: significant other, family and children Smoking Status: Former smoker Family History Mother Hypertension Diabetes mellitus Father Cancer Social History household members: significant other, family and children Smoking Status: Former smoker Exam Initial Vital Signs Initial Vital Signs: Vital Signs Temperature 98.4 F 10/24/18 10:24 Pulse Rate 110 H 10/24/18 10:24 Respiratory Rate 24 10/24/18 10:24 Blood Pressure 188/109 H 10/24/18 10:24 Pulse Oximetry 97 10/24/18 10:24 Const General: cooperative, well developed, in distress (Patient appears uncomfortable, crying) and anxious Nutritional Appearance: well nourished Orientation: alert, awake, oriented x3 and not confused [facility] Head: normocephalic and atraumatic Ears: external ears normal and TM's normal bilaterally Nose: external nose normal and No nasal discharge Face and sinus: sinuses nontender, face symmetric, no sinus tenderness and No dry mucous membranes Mouth: oral mucosae normal and moist mucous membranes Teeth and gingiva: dentition normal Throat: tonsils normal and uvula midline Eyes General: appearance normal, both eyes and all related structures Eyelids: eyelids normal Conjunctivae: conjunctivae normal Sclera: sclerae normal Pupils: PERRL EOM: EOM intact bilaterally Neck Neck: normal visual inspection, trachea midline, No lymphadenopathy, No midline deformity and No JVD Lymphatic: No lymphedema Chest Chest: normal inspection of the chest Resp Effort & Inspection: normal respiratory effort, able to speak in complete sentences, no respiratory distress and no use of accessory muscles Auscultation: clear to auscultation bilaterally, no rales, no rhonchi and no wheezes Cardio Rate: regular rate Rhythm: regular rhythm Heart Sounds: no click, no gallops, no murmurs and no rubs Pulses: normal peripheral pulses GI Inspection: non-distended Palpation: soft, no hepatosplenomegaly, No guarding, No pulsatile mass and tender (Diffuse upper abdominal) Auscultation: normal bowel sounds Back/Spine/Pelvis Back: No CVA tenderness Cervical Spine: cervical ROM normal and No pain with cervical ROM Thoracic/Lumbar Spine: thoracic and lumbar spine normal to inspection Skin General: no rashes or lesions noted, No jaundice and No petechiae Neuro General: alert, oriented x3, gait normal and no focal motor deficits Speech: speech normal Extrem General: full ROM, no clubbing, cyanosis or edema, no pedal edema and no calf tenderness Psych Appearance: well kempt Mental Status: mental status grossly normal Attitude: cooperative Thought Content: normal and suicidality Judgment: judgment good Course Course Narrative: Patient had just been discharged yesterday, and had normal labs within the last 2 days. As such, and considering that her symptoms were on par with multiple previous episodes, I did not feel that any further workup would be of value. Patient was treated symptomatically in the emergency department, until feeling better. We have discussed home management of the symptoms, as well as the usual indications for return. Orders Ordered: Discontinued Medications Hydromorphone HCl (Dilaudid) 1 mg IV NOW ONE Stop: 10/24/18 10:35 Last Admin: 10/24/18 10:41 Dose: 1 mg Hydromorphone HCl (Dilaudid) 2 mg IV NOW ONE Stop: 10/24/18 11:17 Last Admin: 10/24/18 11:31 Dose: Not Given Hydromorphone HCl (Dilaudid) 2 mg PO NOW ONE Stop: 10/24/18 11:32 Last Admin: 10/24/18 12:12 Dose: 2 mg Hydromorphone HCl (Dilaudid) 1 mg IV NOW ONE Stop: 10/24/18 13:02 Lorazepam (Ativan) 1 mg IV NOW ONE Stop: 10/24/18 13:02 Last Admin: 10/24/18 13:24 Dose: 1 mg Ondansetron HCl (Zofran) 4 mg IV NOW ONE Stop: 10/24/18 10:42 Last Admin: 10/24/18 10:41 Dose: 4 mg Vital Signs - 8 hr 10/24/18 10:24 10/24/18 11:00 Temperature 98.4 F Pulse Rate 110 H 98 H Respiratory Rate 24 15 Blood Pressure 188/109 H Blood Pressure [Left Arm] 136/81 Pulse Oximetry 97 99 MDM - Abdominal Pain Medical Records Attestation: I reviewed the patient's medical records. Discharge Plan Departure Patient Disposition: Home Clinical Impression: Vomiting Qualifiers: Vomiting type: cyclical vomiting Vomiting Intractability: non-intractable Nausea presence: with nausea Qualified Code(s): G43.A0 - Cyclical vomiting, not intractable Abdominal pain Qualifiers: Abdominal location: left upper quadrant Qualified Code(s): R10.12 - Left upper quadrant pain Discharge Date/Time: 10/24/18 14:39 Interventions: ED Discharge Assessment Last Done: 10/24/18 14:34 Instructions: DI for Abdominal Pain-Adult Activity Restrictions/Additional Instructions: Please take your home medications, as directed and follow up with your primary doctor. It is very important that you establish care with somebody here in town to manage your frequent bouts of chronic pain. Prescriptions: No Action meclizine 25 mg tablet 25 mg PO TID PRN (Reason: Dizziness) RF: 0 acetaminophen 325 mg tablet 325 mg PO Q6HR PRN (Reason: As Needed For Fever/Mild Pain) RF: 0 pantoprazole 40 mg tablet,delayed release (DR/EC) 40 mg PO DAILY Qty: 30 RF: 1 promethazine 25 mg tablet 25 mg PO Q6H PRN (Reason: nausea and vomiting) Qty: 10 RF: 0 ondansetron 4 mg Tablet,Disintegrating 4 mg Sublingual Q4HR PRN (Reason: Nausea) Qty: 30 RF: 0 citalopram 20 mg Tablet 20 mg PO DAILY Qty: 30 RF: 1 lisinopril 10 mg tablet 10 mg PO BEDTIME Qty: 30 RF: 0 docusate sodium 100 mg capsule 100 mg PO BID 60 Days Qty: 120 RF: 0 morphine 15 mg tablet 15 mg PO Q12H PRN (Reason: pain) Qty: 30 RF: 0 Eliquis 5 mg tablet 5 mg PO BID Qty: 60 RF: 0 lorazepam 1 mg tablet 1 mg PO Q4-6H PRN (Reason: Anxiety) RF: 0 Referrals: Merlene Horta MD [Physician] - (You have an appointment at 2:00 PM on Monday. Please do not miss this.)
[2018-10-24 12:00] VITALS: BP 140/97; PULSE 113; O2SAT 100
[2018-10-24] MEDS: HYDROMORPHONE 2 MG TABLET PO (12:12)
[2018-10-24] MEDS: LORazepam 2 MG/ML INJ 1 MG IV (13:24)
[2018-10-24 13:30] VITALS: BP 153/83; PULSE 106; O2SAT 98
[2018-10-24 14:34] VITALS: BP 140/88; PULSE 97; RESP 20; O2SAT 94
== END 2018-10-24 14:39 | disposition home or self-care (01) ==
PROVIDERS: Emergency Provider Emergency Medicine
DX: G43.A0 Cyclical vomiting, in migraine, not intractable (principal); R10.12 Left upper quadrant pain
CPT/HCPCS: 96374; 96375; 99283; 99284; J1170; J2060; J2405

== ENCOUNTER → 2020-03-13 14:53 | Outpatient (CLI) | payer OTHER, MEDICAID, SELFPAY ==
[2018-10-21 03:21] VITALS: BMI 39.4
--- NOTE | 2020-03-13 14:56 | DI.RAD.S_ITS ---
PROCEDURE: XR KNEE STANDING BI INDICATIONS: Bilateral knee pain, no trauma. TECHNIQUE: Single views of the right knee, and single views of the left knee. COMPARISON: None. FINDINGS: No acute fractures or dislocations. No focal osseous destruction. On the right, scattered degenerative subchondral sclerosis and spurring. Severe narrowing of the medial joint space On the left, scattered degenerative subchondral sclerosis and spurring. Moderate narrowing of the medial joint space IMPRESSION: Bilateral knee joint degeneration, right greater than left as above Dictated by: Eloy Alexis M.D. on 03/13/2020 at 15:53 Approved by: Eloy Alexis M.D. on 03/13/2020 at 15:55
== END ==
PROVIDERS: PCP Registered Nurse Diabetes Educator; Referring Provider Registered Nurse Diabetes Educator; Visit Provider Registered Nurse Diabetes Educator
DX: M25.561 Pain in right knee (principal); M25.562 Pain in left knee; M17.0 Bilateral primary osteoarthritis of knee; E66.01 Morbid (severe) obesity due to excess calories; R73.01 Impaired fasting glucose; I10 Essential (primary) hypertension
CPT/HCPCS: 73565

== ENCOUNTER → 2020-03-21 08:58 | Outpatient (CLI) | payer OTHER, MEDICAID, SELFPAY ==
[2020-03-19 16:31] VITALS: BMI 39.4
[2020-03-21 10:06] LABS: Add Manual Diff / Slide Review NO; Basophils Absolute Auto 100 /uL (0-100); Basophils Percent Auto 1.3 % (0-2); Eosinophils Absolute Auto 200 /uL (0-450); Eosinophils Percent Auto 2.3 % (2-4); Hematocrit 40.2 % (36-46); Hemoglobin 13.5 g/dL (12.0-16.0); Lymphocytes Absolute Auto 1600 /uL (1100-4500); Lymphocytes Percent Auto 24.3 % (25-40); Mean Corpuscular HGB Conc 33.6 % (30-36); Mean Corpuscular Hemoglobin 28.9 PG (26-34); Mean Corpuscular Volume 86.1 fL (80-100); Monocytes Absolute Auto 600 /uL (0-900); Monocytes Percent Auto 8.4 % (3-14); Neutrophils Absolute Auto 4200 /uL (1500-7000); Neutrophils Percent Auto 63.7 % (50-75); Platelet Count 224 X10^3/uL (150-400); Red Blood Cell Count 4.67 X10^6/uL (4.0-5.2); Red Cell Distribution Width 15.1 % (11.6-14.8); White Blood Cell Count 6.6 X10^3/uL (4.5-11.0)
[2020-03-21 10:24] LABS: Hemoglobin A1C% w Est Avg Glu 5.9 % (4.0-6.0)
[2020-03-21 10:25] LABS: Alanine Aminotransferase 72 IU/L (<35); Albumin 4.3 g/dL (3.5-5.0); Albumin Globulin Ratio 1.2 (1.0-2.8); Alkaline Phosphatase 103 U/L (38-126); Aspartate Aminotransferase 69 IU/L (14-36); BUN Creatinine Ratio 27.6 (6-22); Bilirubin Total 0.6 mg/dL (0.2-1.3); Blood Urea Nitrogen 24 mg/dL (7-17); Calcium 9.3 mg/dL (8.4-10.2); Carbon Dioxide 30 mmol/L (22-32); Chloride 101 mmol/L (98-107); Cholesterol 259 mg/dL (140-199); Estimated Glomerular Filt Rate > 60.0 mL/min (>60); Globulin 3.6 g/dL (1.7-4.1); Glucose 107 mg/dL (70-100); HDL Cholesterol 56 mg/dL (40-60); HEMOLYSIS < 15 (0-50); LDL Cholesterol Calculated 181 mg/dL (<100); Potassium 4.4 mmol/L (3.4-5.1); Sodium 137 mmol/L (137-145); Total Protein 7.9 g/dL (6.3-8.2); Triglycerides 109 mg/dL (35-150)
[2020-03-21 10:53] LABS: TSH w/ Reflex to FT4 4.89 uIU/mL (0.47-4.68)
[2020-03-21 15:52] LABS: Free T4, Direct Thyroxine 1.14 ng/dL (0.78-2.19)
== END ==
PROVIDERS: PCP Registered Nurse Diabetes Educator; Referring Provider Registered Nurse Diabetes Educator; Visit Provider Registered Nurse Diabetes Educator
DX: E66.01 Morbid (severe) obesity due to excess calories (principal); I10 Essential (primary) hypertension; M25.561 Pain in right knee; M25.562 Pain in left knee; R73.01 Impaired fasting glucose
CPT/HCPCS: 36415; 80053; 80061; 83036; 84439; 84443; 85025

== ENCOUNTER → 2020-07-02 12:47 | Outpatient (CLI) | payer OTHER, MEDICAID, SELFPAY ==
[2020-03-19 16:31] VITALS: BMI 39.4
[2020-07-02 13:53] LABS: Alanine Aminotransferase 65 IU/L (<35); Albumin 4.3 g/dL (3.5-5.0); Albumin Globulin Ratio 1.2 (1.0-2.8); Alkaline Phosphatase 111 U/L (38-126); Aspartate Aminotransferase 54 IU/L (14-36); BUN Creatinine Ratio 27.7 (6-22); Bilirubin Total 0.3 mg/dL (0.2-1.3); Blood Urea Nitrogen 26 mg/dL (7-17); Calcium 9.5 mg/dL (8.4-10.2); Carbon Dioxide 32 mmol/L (22-32); Chloride 99 mmol/L (98-107); Estimated Glomerular Filt Rate > 60.0 mL/min (>60); Globulin 3.5 g/dL (1.7-4.1); Glucose 144 mg/dL (70-100); HEMOLYSIS < 15 (0-50); Potassium 3.9 mmol/L (3.4-5.1); Sodium 136 mmol/L (137-145); Total Protein 7.8 g/dL (6.3-8.2)
[2020-07-02 14:57] LABS: Free T4, Direct Thyroxine 1.24 ng/dL (0.78-2.19)
== END ==
PROVIDERS: PCP Registered Nurse Diabetes Educator; Referring Provider Registered Nurse Diabetes Educator; Visit Provider Registered Nurse Diabetes Educator
DX: E03.9 Hypothyroidism, unspecified (principal); I10 Essential (primary) hypertension; R74.8 Abnormal levels of other serum enzymes
CPT/HCPCS: 36415; 80053; 84439; 84443

== ENCOUNTER → 2020-08-20 12:34 | Outpatient (CLI) | payer OTHER, MEDICAID, SELFPAY ==
[2020-03-19 16:31] VITALS: BMI 39.4
--- NOTE | 2020-08-20 12:35 | DI.US.S_ITS ---
PROCEDURE: US ABDOMEN LIMITED INDICATIONS: ELEVATED LIVER LABS TECHNIQUE: Real-time focused scanning was performed of the abdomen, with image documentation. COMPARISON: [facility], CT, CT ABDOMEN PELVIS WO CON, 10/04/2018, 12:17. [facility], US, US ABDOMEN COMPLETE, 04/21/2018, 14:53. FINDINGS: Limited exam secondary to patient body habitus and lack of good acoustic window. The liver is diffusely hyperechoic in echotexture and difficult to penetrate with ultrasound. Structures in the kerri hepatis are not well seen. No visible perihepatic ascites. The gallbladder is partially contracted and the wall is normal thickness at 2.4 mm. There are few echogenic adherent foci to the wall of the gallbladder, potentially polyps, the largest measuring about 3 mm. The pancreas was not well seen. IMPRESSION: 1. Suboptimal exam due to lack of good acoustic window. 2. Hepatic steatosis or other intrinsic liver disease the extent of which appears to have worsened since the prior CT scan from 10/04/18. 3. Contracted gallbladder with questionable polyps or adherent sludge/stone. Dictated by: Martha Jimenez M.D. on 08/21/2020 at 10:38 Approved by: Martha Jimenez M.D. on 08/21/2020 at 10:44
== END ==
PROVIDERS: PCP Registered Nurse Diabetes Educator; Referring Provider Registered Nurse Diabetes Educator; Visit Provider Registered Nurse Diabetes Educator
DX: R74.8 Abnormal levels of other serum enzymes (principal); E03.9 Hypothyroidism, unspecified; I10 Essential (primary) hypertension
CPT/HCPCS: 76705

== ENCOUNTER → 2020-10-05 11:08 | Outpatient (CLI) | payer OTHER, MEDICAID, SELFPAY ==
[2020-03-19 16:31] VITALS: BMI 39.4
[2020-10-05 13:54] LABS: HEMOLYSIS < 15 (0-50); Iron 225 ug/dL (37-170)
[2020-10-05 13:58] LABS: Alanine Aminotransferase 82 IU/L (<35); Albumin 3.7 g/dL (3.5-5.0); Albumin Globulin Ratio 1.2 (1.0-2.8); Alkaline Phosphatase 88 U/L (38-126); Aspartate Aminotransferase 84 IU/L (14-36); BUN Creatinine Ratio 32.1 (6-22); Bilirubin Total 0.6 mg/dL (0.2-1.3); Blood Urea Nitrogen 27 mg/dL (7-17); Calcium 9.4 mg/dL (8.4-10.2); Carbon Dioxide 26 mmol/L (22-32); Chloride 101 mmol/L (98-107); Estimated Glomerular Filt Rate > 60.0 mL/min (>60); Globulin 3.2 g/dL (1.7-4.1); Glucose 130 mg/dL (70-100); HEMOLYSIS < 15 (0-50); Potassium 4.2 mmol/L (3.4-5.1); Sodium 135 mmol/L (137-145); Total Protein 6.9 g/dL (6.3-8.2)
[2020-10-05 14:05] LABS: Percent Iron Saturation 55 % (15-50); Total Iron Binding Capacity 407 ug/dL (265-497); Transferrin 332 mg/dL (206-381)
[2020-10-05 14:32] LABS: Ferritin 49 ng/mL (11-264)
[2020-10-05 14:54] LABS: Free T4, Direct Thyroxine 1.48 ng/dL (0.78-2.19)
[2020-10-05 18:10] LABS: Hep C Virus Ab w/Reflex Quant NEGATIVE s/c (NEGATIVE); Hepatitis B Surface Antigen NEGATIVE s/c (NEGATIVE)
[2020-10-06 07:38] LABS: Hepatitis B Core AB w/Reflex Negative (Negative)
== END ==
PROVIDERS: PCP Registered Nurse Diabetes Educator; Referring Provider Registered Nurse Diabetes Educator; Visit Provider Registered Nurse Diabetes Educator
DX: E03.9 Hypothyroidism, unspecified (principal); I10 Essential (primary) hypertension; R74.8 Abnormal levels of other serum enzymes
CPT/HCPCS: 36415; 80053; 82728; 83540; 83550; 84439; 84443; 86704; 86803; 87340

== ENCOUNTER → 2021-05-27 13:36 | Outpatient (CLI) | payer OTHER, MEDICAID, SELFPAY ==
[2020-03-19 16:31] VITALS: BMI 39.4
--- NOTE | 2021-05-27 13:39 | DI.RAD.S_ITS ---
PROCEDURE: XR SHOULDER RT MIN 2V INDICATIONS: eval shoulder pain TECHNIQUE: 3 views of the shoulder were acquired. COMPARISON: None. FINDINGS: Bones: No fractures or dislocations. No suspicious bony lesions. Visualized ribs appear intact. Wbaezybj-fl-kunlxm glenohumeral joint degeneration and mild acromioclavicular joint degeneration. Soft tissues: No suspicious soft tissue calcifications. IMPRESSION: Xlbjicuj-sd-vysjzh degenerative joint disease. Dictated by: Nirali Canchola M.D. on 05/27/2021 at 21:56 Approved by: Nirali Canchola M.D. on 05/28/2021 at 1:44
--- NOTE | 2021-05-27 13:39 | DI.RAD.S_ITS ---
PROCEDURE: XR SHOULDER LT MIN 2V INDICATIONS: eval shoulder pain TECHNIQUE: 3 views of the shoulder were acquired. COMPARISON: None. FINDINGS: Bones: No fractures or dislocations. No suspicious bony lesions. Xoqjxzop-xs-gcrlgz glenohumeral joint degeneration and mild acromioclavicular joint degeneration. Visualized ribs appear intact. Soft tissues: No suspicious soft tissue calcifications. IMPRESSION: Ibyuibcv-mk-lqefmw degenerative joint disease. Dictated by: Nirali Canchola M.D. on 05/27/2021 at 21:54 Approved by: Nirali Canchola M.D. on 05/28/2021 at 1:43
== END ==
PROVIDERS: PCP Registered Nurse Diabetes Educator; Referring Provider Registered Nurse Diabetes Educator; Visit Provider Registered Nurse Diabetes Educator
DX: M19.011 Primary osteoarthritis, right shoulder (principal); M19.012 Primary osteoarthritis, left shoulder; M25.511 Pain in right shoulder; M25.512 Pain in left shoulder
CPT/HCPCS: 73030

== ENCOUNTER → 2021-12-02 08:24 | Outpatient (CLI) | payer OTHER, MEDICAID, SELFPAY ==
[2020-03-19 16:31] VITALS: BMI 39.4
[2021-12-02 09:15] LABS: Hematocrit 40.9 % (36-46); Hemoglobin 14.1 g/dL (12.0-16.0); Mean Corpuscular HGB Conc 34.5 % (30-36); Mean Corpuscular Hemoglobin 31.3 PG (26-34); Mean Corpuscular Volume 90.6 fL (80-100); Platelet Count 258 X10^3/uL (150-400); Red Blood Cell Count 4.51 X10^6/uL (4.0-5.2); Red Cell Distribution Width 13.5 % (11.6-14.8); White Blood Cell Count 6.5 X10^3/uL (4.5-11.0)
[2021-12-02 09:37] LABS: Alanine Aminotransferase 99 IU/L (<35); Albumin 3.7 g/dL (3.5-5.0); Albumin Globulin Ratio 1.1 (1.0-2.8); Alkaline Phosphatase 85 U/L (38-126); Aspartate Aminotransferase 121 IU/L (14-36); BUN Creatinine Ratio 22.6 (6-22); Bilirubin Total 0.5 mg/dL (0.2-1.3); Blood Urea Nitrogen 19 mg/dL (7-17); Carbon Dioxide 27 mmol/L (22-32); Chloride 103 mmol/L (98-107); Cholesterol 234 mg/dL (140-199); Estimated Glomerular Filt Rate > 60 mL/min (>60); Globulin 3.3 g/dL (1.7-4.1); Glucose 250 mg/dL (70-100); HDL Cholesterol 37 mg/dL (40-60); HEMOLYSIS < 15 (0-50); Potassium 4.5 mmol/L (3.4-5.1); Sodium 138 mmol/L (137-145); Triglycerides 402 mg/dL (35-150)
[2021-12-02 10:06] LABS: TSH w/ Reflex to FT4 2.78 uIU/mL (0.47-4.68)
== END ==
PROVIDERS: PCP Registered Nurse Diabetes Educator; Referring Provider Registered Nurse Diabetes Educator; Visit Provider Registered Nurse Diabetes Educator
DX: E11.65 Type 2 diabetes mellitus with hyperglycemia (principal); E11.9 Type 2 diabetes mellitus without complications; I10 Essential (primary) hypertension; E03.9 Hypothyroidism, unspecified
CPT/HCPCS: 36415; 80053; 80061; 83036; 84443; 85027

== ENCOUNTER → 2022-10-10 14:39 | Outpatient (CLI) | payer OTHER, MEDICAID, SELFPAY ==
[2020-03-19 16:31] VITALS: BMI 39.4
[2022-10-10 16:01] LABS: Hematocrit 42.1 % (36-46); Hemoglobin 14.9 g/dL (12.0-16.0); Mean Corpuscular HGB Conc 35.3 % (30-36); Mean Corpuscular Hemoglobin 32.2 PG (26-34); Mean Corpuscular Volume 91.3 fL (80-100); Platelet Count 207 X10^3/uL (150-400); Red Blood Cell Count 4.61 X10^6/uL (4.0-5.2); Red Cell Distribution Width 13.2 % (11.6-14.8); White Blood Cell Count 5.2 X10^3/uL (4.5-11.0)
[2022-10-10 16:20] LABS: Alanine Aminotransferase 151 IU/L (<35); Albumin 4.1 g/dL (3.5-5.0); Albumin Globulin Ratio 1.2 (1.0-2.8); Alkaline Phosphatase 85 U/L (38-126); Aspartate Aminotransferase 165 IU/L (14-36); BUN Creatinine Ratio 14.3 (6-22); Bilirubin Total 0.9 mg/dL (0.2-1.3); Blood Urea Nitrogen 11 mg/dL (7-17); Calcium 9.2 mg/dL (8.4-10.2); Carbon Dioxide 26 mmol/L (22-32); Chloride 100 mmol/L (98-107); Cholesterol 270 mg/dL (140-199); Estimated Glomerular Filt Rate > 60 mL/min (>60); Globulin 3.5 g/dL (1.7-4.1); Glucose 123 mg/dL (70-100); HDL Cholesterol 43 mg/dL (40-60); HEMOLYSIS < 15 (0-50); LDL Cholesterol Calculated 192 mg/dL (<100); Potassium 3.8 mmol/L (3.4-5.1); Sodium 137 mmol/L (137-145); Total Protein 7.6 g/dL (6.3-8.2); Triglycerides 174 mg/dL (35-150)
[2022-10-10 16:49] LABS: TSH w/ Reflex to FT4 2.22 uIU/mL (0.47-4.68)
[2022-10-12 02:37] LABS: Labcorp Hemoglobin (Hb) A1c 8.2 % (4.8-5.6)
== END ==
PROVIDERS: PCP Registered Nurse Diabetes Educator; Referring Provider Registered Nurse Diabetes Educator; Visit Provider Registered Nurse Diabetes Educator
DX: E11.9 Type 2 diabetes mellitus without complications (principal); E78.5 Hyperlipidemia, unspecified; I10 Essential (primary) hypertension
CPT/HCPCS: 36415; 80053; 80061; 83036; 84443; 85027

== ENCOUNTER → 2023-01-10 12:10 | Outpatient (CLI) | payer OTHER, MEDICAID, SELFPAY ==
[2020-03-19 16:31] VITALS: BMI 39.4
[2023-01-10 13:37] LABS: Alanine Aminotransferase 92 IU/L (<35); Albumin 4.1 g/dL (3.5-5.0); Albumin Globulin Ratio 1.2 (1.0-2.8); Alkaline Phosphatase 86 U/L (38-126); Bilirubin Total 0.5 mg/dL (0.2-1.3); Chloride 96 mmol/L (98-107); Cholesterol 236 mg/dL (140-199); Estimated Glomerular Filt Rate > 60 mL/min (>60); Globulin 3.5 g/dL (1.7-4.1); Glucose 179 mg/dL (70-100); HDL Cholesterol 73 mg/dL (40-60); HEMOLYSIS < 15 (0-50); LDL Cholesterol Calculated 128 mg/dL (<100); Potassium 3.7 mmol/L (3.4-5.1); Sodium 135 mmol/L (137-145); Total Protein 7.6 g/dL (6.3-8.2); Triglycerides 177 mg/dL (35-150)
[2023-01-10 13:57] LABS: BUN Creatinine Ratio 21.3 (6-22); Blood Urea Nitrogen 16 mg/dL (7-17); Calcium 9.4 mg/dL (8.4-10.2); Carbon Dioxide 32 mmol/L (22-32)
[2023-01-10 14:30] LABS: Aspartate Aminotransferase 89 IU/L (14-36)
[2023-01-12 05:52] LABS: x Labcorp Estim. Avg Glu (eAG) 143 mg/dL (.); x Labcorp Hemoglobin A1c 6.6 % (4.8-5.6)
== END ==
PROVIDERS: PCP Registered Nurse Diabetes Educator; Referring Provider Registered Nurse Diabetes Educator; Visit Provider Registered Nurse Diabetes Educator
DX: E78.5 Hyperlipidemia, unspecified (principal); E11.9 Type 2 diabetes mellitus without complications; K76.0 Fatty (change of) liver, not elsewhere classified; R74.8 Abnormal levels of other serum enzymes
CPT/HCPCS: 36415; 80053; 80061; 83036

== ENCOUNTER → 2023-03-01 14:45 | Outpatient (CLI) | payer OTHER, MEDICAID, SELFPAY ==
[2020-03-19 16:31] VITALS: BMI 39.4
--- NOTE | 2023-03-01 | DI.MG.S_ITS ---
BILATERAL DIGITAL SCREENING MAMMOGRAM 3D/2D WITH CAD: 03/01/2023 CLINICAL: Routine screening. Baseline exam. No prior exams were available for comparison. There are scattered areas of fibroglandular density in both breasts (category b / 25%-50% glandular tissue). Current study was also evaluated with a Computer Aided Detection (CAD) system. No significant masses, calcifications, or other findings are seen in either breast. IMPRESSION: NEGATIVE There is no mammographic evidence of malignancy. A 1 year screening mammogram is recommended. Based on the Tyrer Cuzick model (a risk assessment model) the patient's lifetime risk is 5.9% and her 10 year risk is 1.9%. According to the ACR, ACS, and NCCN guidelines, an annual breast MRI exam along with mammogram is recommended if the patient's lifetime risk is 20% or greater. This exam was interpreted at Station ID: [id number]. NOTE: For mammograms, a report in lay terms will be sent to the patient. Approximately 15% of breast malignancies will not be visualized mammographically. In the management of a palpable breast mass, a negative mammogram must not discourage biopsy of a clinically suspicious lesion. Electronically Signed By: Sanchez sheppard/adia:03/01/2023 21:03:52 letter sent: Normal Exam ACR BI-RADS Category 1: Negative [id number]
== END ==
PROVIDERS: PCP Registered Nurse Diabetes Educator; Referring Provider Registered Nurse Diabetes Educator; Visit Provider Registered Nurse Diabetes Educator
DX: Z12.31 Encounter for screening mammogram for malignant neoplasm of breast (principal)
CPT/HCPCS: 77063; 77067

== ENCOUNTER → 2023-06-13 12:05 | Outpatient (CLI) | payer OTHER, MEDICAID, SELFPAY ==
[2020-03-19 16:31] VITALS: BMI 39.4
[2023-06-13 13:16] LABS: Hemoglobin A1C% w Est Avg Glu 8.2 % (4.0-6.0)
[2023-06-13 13:18] LABS: Alanine Aminotransferase 133 IU/L (<35); Albumin 4.5 g/dL (3.5-5.0); Albumin Globulin Ratio 1.2 (1.0-2.8); Alkaline Phosphatase 92 U/L (38-126); BUN Creatinine Ratio 24.7 (6-22); Blood Urea Nitrogen 20 mg/dL (7-17); Calcium 10.4 mg/dL (8.4-10.2); Carbon Dioxide 26 mmol/L (22-32); Chloride 96 mmol/L (98-107); Cholesterol 243 mg/dL (140-199); Estimated Glomerular Filt Rate > 60 mL/min (>60); Globulin 3.9 g/dL (1.7-4.1); Glucose 170 mg/dL (70-100); HDL Cholesterol 65 mg/dL (40-60); HEMOLYSIS < 15 (0-50); LDL Cholesterol Calculated 127 mg/dL (<100); Potassium 3.6 mmol/L (3.4-5.1); Sodium 136 mmol/L (137-145); Total Protein 8.4 g/dL (6.3-8.2); Triglycerides 255 mg/dL (35-150)
[2023-06-13 15:17] LABS: Microalbumi Creatinin Ratio Ur 8.7 ug/mg CR (<30); Microalbumin Urine Random 0.8 mg/dL (0-1.6)
[2023-06-16 16:02] LABS: Aspartate Aminotransferase 145 IU/L (14-36)
== END ==
PROVIDERS: PCP Registered Nurse Diabetes Educator; Referring Provider Registered Nurse Diabetes Educator; Visit Provider Registered Nurse Diabetes Educator
DX: E78.5 Hyperlipidemia, unspecified (principal); E11.9 Type 2 diabetes mellitus without complications; K76.0 Fatty (change of) liver, not elsewhere classified; R74.8 Abnormal levels of other serum enzymes
CPT/HCPCS: 36415; 80053; 80061; 82043; 82570; 83036

== ENCOUNTER → 2023-09-08 14:06 | Outpatient (CLI) | payer OTHER, MEDICAID, SELFPAY ==
[2020-03-19 16:31] VITALS: BMI 39.4
[2023-09-08 15:52] LABS: Hematocrit 44.4 % (36-46); Hemoglobin 15.1 g/dL (12.0-16.0); Mean Corpuscular HGB Conc 34.1 % (30-36); Mean Corpuscular Hemoglobin 31.1 PG (26-34); Mean Corpuscular Volume 91.4 fL (80-100); Platelet Count 238 X10^3/uL (150-400); Red Blood Cell Count 4.85 X10^6/uL (4.0-5.2); Red Cell Distribution Width 13.9 % (11.6-14.8); White Blood Cell Count 6.3 X10^3/uL (4.5-11.0)
[2023-09-08 16:09] LABS: Hemoglobin A1C% w Est Avg Glu 7.1 % (4.0-6.0)
[2023-09-08 16:36] LABS: Alanine Aminotransferase 49 IU/L (<35); Albumin 3.9 g/dL (3.5-5.0); Albumin Globulin Ratio 1.1 (1.0-2.8); Alkaline Phosphatase 69 U/L (38-126); Aspartate Aminotransferase 50 IU/L (14-36); BUN Creatinine Ratio 26.7 (6-22); Bilirubin Total 0.6 mg/dL (0.2-1.3); Blood Urea Nitrogen 20 mg/dL (7-17); Calcium 9.5 mg/dL (8.4-10.2); Carbon Dioxide 31 mmol/L (22-32); Chloride 102 mmol/L (98-107); Cholesterol 179 mg/dL (140-199); Estimated Glomerular Filt Rate > 60 mL/min (>60); Globulin 3.6 g/dL (1.7-4.1); Glucose 120 mg/dL (70-100); HDL Cholesterol 62 mg/dL (40-60); HEMOLYSIS < 15 (0-50); LDL Cholesterol Calculated 76 mg/dL (<100); Sodium 139 mmol/L (137-145); Total Protein 7.5 g/dL (6.3-8.2); Triglycerides 203 mg/dL (35-150)
[2023-09-08 17:07] LABS: TSH w/ Reflex to FT4 1.29 uIU/mL (0.47-4.68)
== END ==
PROVIDERS: PCP Registered Nurse Diabetes Educator; Referring Provider Registered Nurse Diabetes Educator; Visit Provider Registered Nurse Diabetes Educator
DX: I10 Essential (primary) hypertension (principal); E11.9 Type 2 diabetes mellitus without complications; E78.5 Hyperlipidemia, unspecified; K76.0 Fatty (change of) liver, not elsewhere classified; E03.9 Hypothyroidism, unspecified
CPT/HCPCS: 80053; 80061; 83036; 84443; 85027

== ENCOUNTER → 2024-01-27 07:56 | Outpatient (CLI) | payer OTHER, MEDICAID, SELFPAY ==
[2020-03-19 16:31] VITALS: BMI 39.4
[2024-01-27 08:49] LABS: Hemoglobin A1C% w Est Avg Glu 7.4 % (4.0-6.0)
== END ==
PROVIDERS: PCP Registered Nurse Diabetes Educator; Referring Provider Registered Nurse Diabetes Educator; Visit Provider Registered Nurse Diabetes Educator
DX: E11.9 Type 2 diabetes mellitus without complications (principal)
CPT/HCPCS: 36415; 83036

== ENCOUNTER → 2024-03-13 12:38 | Outpatient (CLI) | payer OTHER, MEDICAID, SELFPAY ==
[2020-03-19 16:31] VITALS: BMI 39.4
--- NOTE | 2024-03-13 12:39 | DI.CT.S_ITS ---
PROCEDURE: CT IVP A/P W/WO INDICATIONS: gross hematuria, please eval upper tracts. TECHNIQUE: Optional 5 mm thick noncontrast images acquired from the diaphragm to the symphysis pubis. After the administration of intravenous contrast, 5 mm thick images acquired from the diaphragm to the symphysis pubis after a 10-minute delay. 2 mm thick coronal and sagittal reformats were then performed of the kidneys and ureters. For radiation dose reduction, the following was used: automated exposure control, adjustment of mA and/or kV according to patient size. COMPARISON: [facility], CT, CT ABDOMEN PELVIS WITH CONTRAST, 05/05/2022, 4:29. FINDINGS: Image quality: Diagnostic. Kidneys and Ureters: No renal or ureteral calculi. No evidence of hydronephrosis. No definite solid renal mass. Small exophytic hypodense lesion along the posterolateral mid left kidney, unchanged in appearance from previous study of 05/05/2022 and possibly cyst but too small to characterize. No urothelial abnormality. Bladder: Bladder wall thickness is normal. No calcified bladder stones. OTHER: Lower chest: Liver demonstrates diffusely decreased attenuation compatible with steatosis. No focal hepatic mass lesion. Liver: No solid mass. Gallbladder: Tiny calcified gallstones within a decompressed gallbladder. Biliary ducts: No biliary dilation. Pancreas: No focal mass lesion. No pancreatic duct dilatation or inflammatory changes. Spleen: Size is within normal limits. Adrenal Glands: No adrenal nodules. Stomach and Bowel: The small and large bowel appear normal in caliber without evidence of bowel obstruction. Peritoneum: No abnormal intraperitoneal fluid. No free air. Ventral Wall: Diastasis of the rectus abdominus with herniation of nonobstructed loops of small and large bowel. Abdominal Nodes: Several scattered prominent, though nonenlarged, aortocaval retroperitoneal lymph nodes. No enlarged abdominal or pelvic lymph nodes. Vessels: Aorta and inferior vena cava are normal in size. Retroaortic left renal vein. PELVIS: Pelvic Organs: Unremarkable. Pelvic Nodes: No enlarged lymph nodes. Miscellaneous: No inguinal hernias are seen. Bones: No aggressive osseous abnormality. Lumbarized S1 segment. IMPRESSION: 1. No urinary calculi. No evidence of hydronephrosis. No solid renal mass or urothelial abnormality. 2. Diastasis of the rectus abdominus containing loops of nonobstructed small and large bowel with similar appearance seen previously. REMINDER: Report Hounsfield units on all stones 5 mm or larger, 3 per kidney max Dictated by: Jarred Cortes M.D. on 03/13/2024 at 15:16 Approved by: Jarred Cortes M.D. on 03/13/2024 at 15:39
[2024-03-13 13:36] LABS: Estimated Glomerular Filt Rate > 60 mL/min (>60)
== END ==
LOC: CT 12:38
PROVIDERS: Radiology Diagnostic Radiology; PCP Registered Nurse Diabetes Educator; Referring Provider Urology; Visit Provider Urology
DX: M62.08 Separation of muscle (nontraumatic), other site (principal); R31.0 Gross hematuria; R10.9 Unspecified abdominal pain
CPT/HCPCS: 36415; 74178; 82565; Q9967

== ENCOUNTER → 2024-05-06 08:47 | Outpatient (CLI) | payer OTHER, MEDICAID, SELFPAY ==
[2020-03-19 16:31] VITALS: BMI 39.4
[2024-05-06 09:59] LABS: Hemoglobin A1C% w Est Avg Glu 7.7 % (4.0-6.0)
== END ==
PROVIDERS: PCP Registered Nurse Diabetes Educator; Referring Provider Registered Nurse Diabetes Educator; Visit Provider Registered Nurse Diabetes Educator
DX: E11.9 Type 2 diabetes mellitus without complications (principal)
CPT/HCPCS: 36415; 83036

== ENCOUNTER → 2024-07-09 15:23 | Outpatient (CLI) | payer OTHER, SELFPAY ==
[2020-03-19 16:31] VITALS: BMI 39.4
--- NOTE | 2024-07-09 15:24 | DI.US.S_ITS ---
PROCEDURE: US CAROTID DOPPLER BI INDICATIONS: further eval carotid artery calcifications (outside CT) TECHNIQUE: Color and pulse Doppler interrogation was performed of both carotid systems, with image documentation and velocity measurements. COMPARISON: None. FINDINGS: Stenosis calculations are based on SRU (Society of Radiologists in Ultrasound) criteria. Right side: Brachial blood pressure: 120/66 mm Hg. Common carotid artery peak systolic velocity: 46 cm/sec. Internal carotid artery peak systolic velocity: 97 cm/sec. Internal carotid artery end diastolic velocity: 32 cm/sec. External carotid artery peak systolic velocity: 221 cm/sec. ICA/CCA peak systolic ratio: 2.13 . Torres scale imaging description: Moderate atherosclerotic plaques Percent internal carotid artery stenosis: Less than 50% . Vertebral artery: Flow direction is antegrade. Left side: Brachial blood pressure: 110/60 mm Hg. Common carotid artery peak systolic velocity: 63 cm/sec. Internal carotid artery peak systolic velocity: 107 cm/sec. Internal carotid artery end diastolic velocity: 52 cm/sec. External carotid artery peak systolic velocity: 95 cm/sec. ICA/CCA peak systolic ratio: 1.71 . Torres scale imaging description: Mild atherosclerotic plaques Percent internal carotid artery stenosis: Less than 50% . Vertebral artery: Flow direction is antegrade. IMPRESSION: 1. In the right carotid artery, there is less than 50% stenosis based on peak systolic velocity criteria. Based on ICA/CCA ratio, there is 50-69% stenosis. 2. In the left carotid artery, there is less than 50% stenosis based on peak systolic velocity criteria. 3. Antegrade vertebral arteries. Dictated by: Jomar Saini M.D. on 07/09/2024 at 20:19 Approved by: Jomar Saini M.D. on 07/09/2024 at 20:22
== END ==
PROVIDERS: PCP Registered Nurse Diabetes Educator; Referring Provider Registered Nurse Diabetes Educator; Visit Provider Registered Nurse Diabetes Educator
DX: I65.23 Occlusion and stenosis of bilateral carotid arteries (principal)
CPT/HCPCS: 93880

== ENCOUNTER → 2024-08-03 10:34 | Outpatient (CLI) | payer OTHER, SELFPAY ==
[2020-03-19 16:31] VITALS: BMI 39.4
[2024-08-03 12:37] LABS: Hemoglobin 16.6 g/dL (12.0-16.0); Mean Corpuscular HGB Conc 34.7 % (30-36); Mean Corpuscular Hemoglobin 31.3 PG (26-34); Mean Corpuscular Volume 90.4 fL (80-100); Platelet Count 334 X10^3/uL (150-400); Red Blood Cell Count 5.31 X10^6/uL (4.0-5.2); Red Cell Distribution Width 14.6 % (11.6-14.8); White Blood Cell Count 6.5 X10^3/uL (4.5-11.0)
[2024-08-03 13:02] LABS: Estimated Glomerular Filt Rate > 60 mL/min (>60)
[2024-08-03 13:28] LABS: Alanine Aminotransferase 64 IU/L (<35); Albumin 4.5 g/dL (3.5-5.0); Albumin Globulin Ratio 1.5 (1.0-2.8); Alkaline Phosphatase 75 U/L (38-126); Aspartate Aminotransferase 74 IU/L (14-36); BUN Creatinine Ratio 25.6 (6-22); Bilirubin Total 1.6 mg/dL (0.2-1.3); Blood Urea Nitrogen 23 mg/dL (7-17); Carbon Dioxide 23 mmol/L (22-32); Chloride 101 mmol/L (98-107); Cholesterol 279 mg/dL (140-199); Estimated Glomerular Filt Rate > 60 mL/min (>60); Glucose 112 mg/dL (70-100); HDL Cholesterol 50 mg/dL (40-60); HEMOLYSIS < 15 (0-50); LDL Cholesterol Calculated 199 mg/dL (<100); Potassium 4.4 mmol/L (3.4-5.1); Sodium 138 mmol/L (137-145); Total Protein 7.5 g/dL (6.3-8.2); Triglycerides 148 mg/dL (35-150)
[2024-08-03 16:55] LABS: Hemoglobin A1C% w Est Avg Glu 5.2 % (4.0-6.0)
== END ==
LOC: LAB 10:36
PROVIDERS: Urology; PCP Registered Nurse Diabetes Educator; Referring Provider Registered Nurse Diabetes Educator; Visit Provider Registered Nurse Diabetes Educator
DX: R31.0 Gross hematuria (principal); E11.9 Type 2 diabetes mellitus without complications; E03.9 Hypothyroidism, unspecified; E78.5 Hyperlipidemia, unspecified; I10 Essential (primary) hypertension
CPT/HCPCS: 36415; 80053; 80061; 82565; 83036; 84443; 85027

== ENCOUNTER 2024-11-28 16:09 | Emergency (ER) | payer OTHER, SELFPAY ==
[2020-03-19 16:31] VITALS: BMI 39.4
[2024-11-28] VITALS (13 sets, daily range): BP systolic 105–141; BP diastolic 64–88; PULSE 80–97; RESP 16–22; TEMP 36.9–37; O2SAT 95–100; BMI 36.1
--- NOTE | 2024-11-28 16:16 | EKG_ITS ---
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
--- NOTE | 2024-11-28 16:16 | DI.RAD.S_ITS ---
PROCEDURE: XR CHEST 1V INDICATIONS: Chest Pain TECHNIQUE: One view of the chest was acquired. COMPARISON: [facility], CR, XR CHEST 1V, 10/17/2018, 22:58. FINDINGS: Surgical changes and devices: Bilateral shoulder arthroplasties. Lungs and pleura: Lungs are clear. No pleural effusions or pneumothorax. Mediastinum: Mediastinal contours appear normal. Heart size is normal. Bones and chest wall: No suspicious bony lesions. Overlying soft tissues appear unremarkable. IMPRESSION: No acute pulmonary process. Dictated by: Kristin Benton M.D. on 11/28/2024 at 16:49 Approved by: Kristin Benton M.D. on 11/28/2024 at 16:49
--- NOTE | 2024-11-28 16:20 | ED_ITS ---
HPI - Dizziness General Chief Complaint: Dizziness Stated Complaint: Weakness, Low BP Time Seen by Provider: 11/28/24 16:16 Mode of arrival: Ambulatory History of Present Illness HPI Narrative: 59-year-old female history of type 2 diabetes, dyslipidemia, ADHD, subclinical hypothyroidism, depression, hypertension, status post left knee replacement was in rehab today when she started to become dizzy and lightheaded and noticed blood pressure was 80s systolic given IV fluids on the way via EMS prior to arrival here. Patient denies headache, blurred vision, chest pain, shortness of breath, fever, chills, stiff neck, rash, nausea, vomiting, diarrhea, abdominal pain, numbness, tingling, down the arms, or legs, difficulty swallowing, slurred speech, or weakness in any of the extremities. Other than what is stated 14 point review of system is negative Related Data Home Medications ?Medication ?Instructions ?Recorded ?Confirmed ondansetron HCl 4 mg tablet 4 mg PO 10/11/22 10/01/24 scopolamine base 1 mg over 3 days 1 patch transdermal 10/11/22 10/01/24 transdermal patch oxycodone-acetaminophen 5 mg-325 1 tab PO Q6H PRN mode rate pain 02/20/23 10/01/24 mg tablet meloxicam 15 mg tablet 15 mg PO DAILY 02/07/2409/11 Previous Rx's ?Medication ?Instructions ?Recorded lancets 33 gauge #100 ea 08/04/21 blood-glucose meter #1 ea 10/28/22 disabled parking #1 ea 11/08/23 blood sugar diagnostic (Blood #100 ea 11/12/23 Glucose Test strips) ketoconazole 2 % topical cream 1 applic topical DAILY #30 grams 03/12/24 aspirin 81 mg tablet,delayed 81 mg PO DAILY #90 tabs 0 07/19/24 release (Adult Aspirin Regimen) empagliflozin 25 mg tablet 25 mg PO DAILY #90 tabs (Jardiance) escitalopram oxalate 20 mg tablet 20 mg PO DAILY #90 t abs 08/06/24 hydroxyzine pamoate 25 mg capsule 25 mg PO TID PRN brownlee ic attack(s) 08/06/24 #60 caps levothyroxine 75 mcg tablet 75 mcg PO DAILY #90 tabs 0 08/06/24 lisinopril 20 2 tab PO DAILY #180 tabs mg-hydrochlorothiazide 12.5 mg tablet metoprolol succinate 25 mg 25 mg PO DAILY #90 tabs tablet,extended release 24 hr rosuvastatin 20 mg tablet 20 mg PO DAILY #90 tabs 07/14 11/03 tirzepatide 15 mg/0.5 mL 15 mg (0.5 mL) SUBCUT QWEEK #6 mL 08/06/24 subcutaneous pen injector (Jose) trazodone 50 mg tablet 100 mg (2 x 50 mg) PO BEDTIM E PRN 08/06/24 insomnia #180 tabs Allergies Allergy/AdvReac Type Severity Reaction Status Date / Time Penicillins Allergy Intermediate Hives Verified 11/28/24 16:13 ranitidine (From Zantac) Allergy Intermediate Hives Verified 11/28/24 16:13 metformin AdvReac Mild Abdominal Verified 11/28/24 16:13 Pain morphine Allergy Mild Uncoded 11/28/24 16:13 Review of Systems Review of Systems ROS Unobtainable: All systems reviewed & are unremarkable except as noted in HPI and below Patient History Medical History Bilateral carotid artery stenosis Stenosis of right carotid artery greater than 50% ADHD (attention deficit hyperactivity disorder), combined type Dyslipidemia Type 2 diabetes mellitus without complication Laceration Fatty liver disease, nonalcoholic Liver enzyme elevation Subclinical hypothyroidism Bilateral primary osteoarthritis of knee Insomnia Bilateral knee pain Impaired fasting blood sugar Depression (2017) Seasonal allergies Chicken pox Vertigo (~2018) DVT (deep venous thrombosis) Postoperative ileus Anxiety disorder Morbid obesity with BMI of 45.0-49.9, adult HTN (hypertension) Migraine Surgical History Status post exploratory laparotomy Small bowel obstruction due to adhesions (~06/2018) Status post hysterectomy Status post appendectomy Family History Mother Hypertension Diabetes mellitus History of heart disease Father Cancer Social History household members: significant other, family and children Smoking Status: Former smoker alcohol intake frequency: holidays/special occasions only Exam Narrative Exam Narrative: GENERAL: [59] year old patient appears stated age. Well-developed patient, in mild distress. HEAD: Atraumatic. Normocephalic. EYES: Pupils equal round and reactive. Extraocular motions intact. No scleral icterus. No injection or drainage. ENT: Nose without bleeding, purulent drainage. Throat without erythema, tonsillar hypertrophy or exudate. Airway patent. NECK: Trachea midline. Non tender CARDIOVASCULAR: Regular rate and rhythm without murmurs, gallops, or rubs. RESPIRATORY: Clear to auscultation. Breath sounds equal bilaterally. No wheezes, rales, or rhonchi. GASTROINTESTINAL: Abdomen soft, non-tender, nondistended. EXTREMITIES: No edema or joint tenderness. BACK: Nontender without deformity or crepitance. No flank tenderness. NEURO: AOx3. GCS of 15 nonfocal neuro exam negative pronator drift, motor sensory intact, 5/5 bilateral upper and lower extremity, [id number] opposite [id number] rapid alternating movements negative pronator drift all intact SKIN: No rash or erythema of visible areas Initial Vital Signs Initial Vital Signs: Vital Signs Temperature 98.6 F 11/28/24 16:10 Pulse Rate 82 11/28/24 16:10 Respiratory Rate 20 11/28/24 16:10 Blood Pressure 122/67 11/28/24 16:10 Pulse Oximetry 99 11/28/24 16:10 Oxygen Delivery Method Room Air 11/28/24 16:10 Course Orders Ordered: ED Orders 11/28/24 16:16 XR chest 1V Stat Complete Blood Count AUTO DIFF Stat Comprehensive Metabolic Panel Stat Lipase Stat Magnesium Stat NT-proBNP (BNP-Adult 18+) Stat PTT Partial Thromboplastin Toño Stat Prothrombin Time INR Stat Troponin & CK Cardiac Panel Stat EKG-12 Lead Stat Vital Signs Vital signs: Vital Signs - 8 hr 11/28/24 16:10 Temperature 98.6 F Pulse Rate 82 Respiratory Rate 20 Blood Pressure 122/67 Pulse Oximetry 99 Oxygen Delivery Method Room Air MDM - Dizziness Imaging Data CT scan - head: Radiologist's Impression: [address] [address] [address] Scan Report Signed Patient: Carol Reyes MR#: [id number] : 1965 Acct:[id number] Age/Sex: 59 / F Date of Service: 11/28/24 Loc: ED Accession Number: [id number] Procedure: CT head/brain wo con Ordering Provider: Pravin Allen D.O. PROCEDURE: CT HEAD/BRAIN WO CON INDICATIONS: dizziness TECHNIQUE: Noncontrast 4.5 mm thick angled axial sections acquired from the foramen magnum to the vertex, with coronal and sagittal reformats. For radiation dose reduction, the following was used: automated exposure control, adjustment of mA and/or kV according to patient size. COMPARISON: None. FINDINGS: Image quality: Diagnostic. CSF spaces: Basal cisterns are patent. No extra-axial fluid collections. Ventricles are normal in size and shape. Brain: No midline shift. No intracranial mass effect or hemorrhage. Torres- white matter interface is normal. Skull and face: Calvarium and visualized facial bones are intact, without suspicious lesions. Sinuses: Visualized sinuses and mastoids are clear. IMPRESSION: No acute intracranial pathology. Chest x-ray: Radiologist's Impression: [address] [address] XRay Report Signed Patient: Carol Reyes MR#: [id number] : 1965 Acct:[id number] Age/Sex: 59 / F Date of Service: 11/28/24 Loc: ED Accession Number: [id number] Procedure: XR chest 1V Ordering Provider: Pravin Allen D.O. PROCEDURE: XR CHEST 1V INDICATIONS: Chest Pain TECHNIQUE: One view of the chest was acquired. COMPARISON: [facility], [place], XR CHEST 1V, 10/17/2018, 22:58. FINDINGS: Surgical changes and devices: Bilateral shoulder arthroplasties. Lungs and pleura: Lungs are clear. No pleural effusions or pneumothorax. Mediastinum: Mediastinal contours appear normal. Heart size is normal. Bones and chest wall: No suspicious bony lesions. Overlying soft tissues appear unremarkable. IMPRESSION: No acute pulmonary process. ECG Data Interpretation: NSr HR 83 [place] 138 QRS [address]-t wave change Change from 11/08/23 [facility] Narrative Medical decision making narrative: All lab work vital signs nurse triage note medication list previous ER visits and all imaging studies. CT head and chest x-ray both showed no acute process. Patient was orthostatic on orthostatic vital signs reviewed and given fluids here. White blood count was normal 8.4 hemoglobin 16.8 sodium 135 BUN 20 creatinine 1.19 calcium 10 point troponin less than 0.012. Differential diagnosis includes subdural, epidural, hemorrhage vertigo, viral labyrinthitis, Meniere's disease, orthostatic hypotension. Patient feels much better on reexamination. Discharge Plan Departure Patient Disposition: Home Clinical Impression: Orthostatic hypotension Instructions: Orthostatic Hypotension Activity Restrictions/Additional Instructions: Return with new or worsening symptoms. Keep hydrated Prescriptions: No Action (DME) blood-glucose meter Misc See Rx Instructions .Route Qty: 1 0RF Rx Instructions: As directed aspirin [Adult Aspirin Regimen] 81 mg tablet,delayed release (DR/EC) 81 mg PO DAILY Qty: 90 3RF ondansetron HCl 4 mg tablet 4 mg PO scopolamine base 1 mg over 3 days patch 3 day 1 patch transdermal oxycodone-acetaminophen 5-325 mg tablet 1 tab PO Q6H PRN (Reason: moderate pain) ketoconazole 2 % cream 1 applic topical DAILY Qty: 30 0RF (DME) lancets 33 gauge misc See Rx Instructions .Route Qty: 100 3RF Rx Instructions: use to test blood sugar once daily (DME) disabled parking See Rx Instructions .ROUTE .MEDSUPPLY Qty: 1 0RF Rx Instructions: I find this patient to be medically disabled and qualified for Disabled Parking as indicated, and signed, on the Accompanying Disabled Parking Application for individuals. (DME) Blood Glucose Test Strip See Rx Instructions .Route Qty: 100 3RF Rx Instructions: Use to test blood sugar once daily meloxicam 15 mg tablet 15 mg PO DAILY escitalopram oxalate 20 mg tablet 20 mg PO DAILY Qty: 90 3RF hydroxyzine pamoate 25 mg capsule 25 mg PO TID PRN (Reason: panic attack(s)) Qty: 60 3RF Rx Instructions: may make drowsy do not drive levothyroxine 75 mcg tablet 75 mcg PO DAILY Qty: 90 3RF lisinopril-hydrochlorothiazide 20-12.5 mg tablet 2 tab PO DAILY Qty: 180 3RF metoprolol succinate 25 mg tablet extended release 24 hr 25 mg PO DAILY Qty: 90 3RF rosuvastatin 20 mg tablet 20 mg PO DAILY Qty: 90 3RF Mounjaro 15 mg/0.5 mL pen injector 15 mg SUBCUT QWEEK Qty: 6 4RF trazodone 50 mg tablet 100 mg PO BEDTIME PRN (Reason: insomnia) Qty: 180 3RF Jardiance 25 mg tablet 25 mg PO DAILY Qty: 90 3RF Referrals: Manoj Amaro ARNP [Primary Care Provider, Medical] Stand Alone Forms: Patient Portal/API
--- NOTE | 2024-11-28 16:23 | PC.NURSE ---
Pt reports she was at PT when she was feeling dizzy; states these symptoms got worse towards the end of PT; states sessions last around 45min to 1 hour. Pt reports this was her first PT session post left total knee replacement (10/17). Pt reports she did not exert herself harder than usual. Pt staes she did not eat much today. Pt states she was a little clammy when she felt faint. Pt denies pain. Denies SOB. no blood thinner
[2024-11-28 16:33] LABS: Add Manual Diff / Slide Review NO; Basophils Absolute Auto 0 /uL (0-100); Basophils Percent Auto 0.3 % (0-2); Eosinophils Absolute Auto 0 /uL (0-450); Eosinophils Percent Auto 0.5 % (2-4); Hematocrit 48.4 % (36-46); Hemoglobin 16.8 g/dL (12.0-16.0); Lymphocytes Absolute Auto 2000 /uL (1100-4500); Lymphocytes Percent Auto 23.5 % (25-40); Mean Corpuscular HGB Conc 34.7 % (30-36); Mean Corpuscular Hemoglobin 31.5 PG (26-34); Mean Corpuscular Volume 90.9 fL (80-100); Monocytes Absolute Auto 600 /uL (0-900); Monocytes Percent Auto 7.2 % (3-14); Neutrophils Absolute Auto 5700 /uL (1500-7000); Neutrophils Percent Auto 68.5 % (50-75); Platelet Count 292 X10^3/uL (150-400); Red Blood Cell Count 5.33 X10^6/uL (4.0-5.2); Red Cell Distribution Width 13.1 % (11.6-14.8); White Blood Cell Count 8.4 X10^3/uL (4.5-11.0)
[2024-11-28 16:36] LABS: INR 1.2 (0.9-1.3); Prothrombin Time 14.1 SECONDS (9.4-12.5)
[2024-11-28 16:38] LABS: PTT Partial Thromboplastin Tim 33 SECONDS (25.1-36.5)
[2024-11-28 16:42] LABS: Alanine Aminotransferase 32 IU/L (<35); Albumin 4.6 g/dL (3.5-5.0); Albumin Globulin Ratio 1.2 (1.0-2.8); Alkaline Phosphatase 98 U/L (38-126); Aspartate Aminotransferase 44 IU/L (14-36); BUN Creatinine Ratio 16.8 (6-22); Bilirubin Total 0.9 mg/dL (0.2-1.3); Blood Urea Nitrogen 20 mg/dL (7-17); Calcium 10.5 mg/dL (8.4-10.2); Carbon Dioxide 24 mmol/L (22-32); Chloride 97 mmol/L (98-107); Creatine Kinase 40 U/L (30-135); Estimated Glomerular Filt Rate 53 mL/min (>60); Globulin 3.9 g/dL (1.7-4.1); Glucose 121 mg/dL (70-99); HEMOLYSIS < 15 (0-50); Lipase 117 U/L (23-300); Magnesium 1.6 mg/dL (1.6-2.3); Potassium 3.6 mmol/L (3.4-5.1); Sodium 135 mmol/L (137-145); Total Protein 8.5 g/dL (6.3-8.2)
--- NOTE | 2024-11-28 16:47 | DI.CT.S_ITS ---
PROCEDURE: CT HEAD/BRAIN WO CON INDICATIONS: dizziness TECHNIQUE: Noncontrast 4.5 mm thick angled axial sections acquired from the foramen magnum to the vertex, with coronal and sagittal reformats. For radiation dose reduction, the following was used: automated exposure control, adjustment of mA and/or kV according to patient size. COMPARISON: None. FINDINGS: Image quality: Diagnostic. CSF spaces: Basal cisterns are patent. No extra-axial fluid collections. Ventricles are normal in size and shape. Brain: No midline shift. No intracranial mass effect or hemorrhage. Torres- white matter interface is normal. Skull and face: Calvarium and visualized facial bones are intact, without suspicious lesions. Sinuses: Visualized sinuses and mastoids are clear. IMPRESSION: No acute intracranial pathology. Dictated by: Kristin Benton M.D. on 11/28/2024 at 17:06 Approved by: Kristin Benton M.D. on 11/28/2024 at 17:07
[2024-11-28 16:53] LABS: NT-proBNP (BNP-Adult 18+) 119 pg/mL (<125); Troponin I < 0.012 ng/mL (0.01-0.034)
[2024-11-28] MEDS: LACTATED RINGERS 1,000 ML 1000 ML IV (16:55)
== END 2024-11-28 17:56 | disposition home or self-care (01) ==
PROVIDERS: Emergency Provider Family Medicine; PCP Registered Nurse Diabetes Educator
DX: I95.1 Orthostatic hypotension (principal); R07.9 Chest pain, unspecified
CPT/HCPCS: 70450; 71045; 80053; 82550; 83690; 83735; 83880; 84484; 85025; 85610; 85730; 93005; 93010; 96360; 99284

== ENCOUNTER → 2025-05-12 15:42 | Outpatient (CLI) | payer OTHER, SELFPAY ==
[2020-03-19 16:31] VITALS: BMI 39.4
[2025-05-12 17:32] LABS: Hematocrit 44.2 % (36-46); Hemoglobin 15.5 g/dL (12.0-16.0); Mean Corpuscular HGB Conc 34.9 % (30-36); Mean Corpuscular Hemoglobin 30.2 PG (26-34); Mean Corpuscular Volume 86.3 fL (80-100); Platelet Count 278 X10^3/uL (150-400)
[2025-05-12 17:56] LABS: Alanine Aminotransferase 24 IU/L (<35); Albumin 4.2 g/dL (3.5-5.0); Albumin Globulin Ratio 1.4 (1.0-2.8); Alkaline Phosphatase 67 U/L (38-126); Blood Urea Nitrogen 14 mg/dL (7-17); Calcium 9.9 mg/dL (8.4-10.2); Carbon Dioxide 29 mmol/L (22-32); Chloride 101 mmol/L (98-107); Cholesterol 169 mg/dL (140-199); Estimated Glomerular Filt Rate > 60 mL/min (>60); Globulin 2.9 g/dL (1.7-4.1); Glucose 87 mg/dL (70-99); HDL Cholesterol 73 mg/dL (40-60); HEMOLYSIS < 15 (0-50); Potassium 3.7 mmol/L (3.4-5.1); Sodium 138 mmol/L (137-145); Total Protein 7.1 g/dL (6.3-8.2); Triglycerides 87 mg/dL (35-150)
[2025-05-12 18:31] LABS: Hemoglobin A1C% w Est Avg Glu 4.9 % (4.0-6.0)
[2025-05-12 18:32] LABS: TSH w/ Reflex to FT4 2.39 uIU/mL (0.47-4.68)
== END ==
PROVIDERS: PCP Registered Nurse Diabetes Educator; Referring Provider Registered Nurse Diabetes Educator; Visit Provider Registered Nurse Diabetes Educator
DX: R74.8 Abnormal levels of other serum enzymes (principal); E03.9 Hypothyroidism, unspecified; K76.0 Fatty (change of) liver, not elsewhere classified; E11.9 Type 2 diabetes mellitus without complications; I10 Essential (primary) hypertension; I95.1 Orthostatic hypotension; R11.2 Nausea with vomiting, unspecified; E78.5 Hyperlipidemia, unspecified
CPT/HCPCS: 36415; 80053; 80061; 83036; 84443; 85027